=== PATIENT | female | born 1945 | race Caucasian/White ===

== ENCOUNTER 2017-11-11 15:20 | Emergency (ER) | payer MEDICARE, SELFPAY ==
[2017-11-11 15:25] VITALS: BP 182/89; PULSE 81; RESP 22; TEMP 37; O2SAT 98
--- NOTE | 2017-11-11 15:57 | W.ED.GENAD ---
Discharge Plan Disposition Patient Disposition: HOME Discharge Details Chief Complaint: GenMedical Clinical Impression: Nausea Primary Care Provider: Amber Kraus ED Provider: Joshua Urban Home Meds and New Rx's Prescriptions: Continue carbidopa-levodopa 1 EACH tablet 1 tab PO BID RF: 0 fluoxetine [Prozac] 10 MG capsule 20 mg PO DAILY RF: 0 morphine 15 MG tablet 15 mg PO Q4H PRN PRNRF: 0 omeprazole 40 MG capsule,delayed release(DR/EC) 40 mg PO BID Qty: 14 RF: 0 metoprolol succinate [Toprol XL] 50 MG tablet extended release 24 hr 50 mg PO DAILY RF: 0 ondansetron HCl 4 MG tablet 4 mg PO Q4H PRN PRNRF: 0 Discharge Instructions Additional Instructions: Please contact your primary care physician to arrange follow-up. Return to the ER for any worsening or new concerning symptoms. Referrals: Amber Kraus [Primary Care Provider] - Medical Decision Making MDM Narrative Medical decision making narrative: 16:05 --71-year-old female with history of hypertension, peptic ulcer disease, chronic pain, history of seizures, here with generalized discomfort, nausea and vomiting, tremors. Plan at this time is to give IV fluid bolus and Ativan for anxiety and nausea. Will check labs to assess for electrolyte abnormalities. ECG was sent by screening protocol. ECG reviewed and interpreted by me: Sinus rhythm 80 bpm, right atrial enlargement noted, subtle ST depression noted inferior lateral in leads II, 3, aVF, V3 to V6, this is unchanged from prior EKG 09/15/2017. 17:11 --patient reassessed: She is doing much better. When distracted patient appears quite comfortable and highly functional. Abdominal exam is benign. Patient still states that she has some mild nausea. I will give Phenergan suppository. Patient is stable for discharge with outpatient follow-up. I encouraged her to call her doctor tomorrow to arrange follow-up. She understands she should return to the emergency department if any worsening or new concerning symptoms. Medical Records Medical records reviewed: Yes I reviewed the patient's medical records. I reviewed past medical record and patient had similar presentation 09/16/[address] and was admitted for intractable vomiting. CT a/p 09/16/17: CONCLUSION: 1. Gastric wall edema/thickening, consider gastritis or peptic ulcer disease. 2. Borderline or mildly dilatated biliary ducts, please correlate clinically and with serum values. 3. Apparent colonic wall thickening raising the possibility of colitis. Patient improved in the hospital and was discharged to follow-up with her primary care physician. Lab Data Lab results reviewed: Yes I reviewed the patient's lab results. Laboratory Tests 11/11/17 11/11/17 16:00 16:00 WBC 5.45 RBC 4.87 Hgb 12.2 Hct 36.8 MCV 75.6 L MCH 25.1 L MCHC 33.2 RDW 15.2 H Plt Count 329 MPV 9.8 Immature Gran % 0.2 Neutrophils % 81.5 Lymphocytes % 15.0 Monocytes % 2.9 Eosinophils % 0.0 Basophils % 0.4 Absolute Neutrophils 4.44 Absolute Lymphocytes 0.82 L Absolute Monocytes 0.16 Absolute Eosinophils 0.00 Absolute Basophils 0.02 Sodium 139 Potassium 3.9 Chloride 105 Carbon Dioxide 22.7 Anion Gap 11.3 H BUN 22 H Creatinine 1.01 Estimated GFR/1.73 m2 53.73 Glucose 165 H Calcium 8.7 Magnesium 1.6 L Total Bilirubin 0.3 AST 21 ALT 7 L Alkaline Phosphatase 61 Troponin I < 0.02 Total Protein 7.5 Albumin 3.6 HPI - General Adult General Date/Time Provider Initiated Documentation: 11/11/17 15:20. Limitations to Documentation: no limitations. Information obtained by: patient. HPI Narrative: 71-year-old female with a history of hypertension, peptic ulcer disease, chronic pain, seizure disorder, hepatitis C, presents with chief complaint of generally not feeling well. Patient notes that 2 days ago she had nausea, vomiting and diarrhea that lasted approximately 24 hours. She thought she had gastroenteritis. She did not have any symptoms yesterday and in fact felt quite well. Since this morning, however, she has been feeling ill again with nausea, vomiting and feels as though she is having frequent seizures. When asked further characterize her seizures, she notes that she has had shaking of her legs. No loss of consciousness. Patient states that she used some Zofran at home today and that this did not help. He has pain all over her body. She also states that she wants to be admitted to the hospital and does not want to go home. Related Data Home Medications Medication Instructions Recorded Confirmed carbidopa-levodopa 1 tab PO BID 07/13/15 11/11/17 fluoxetine [Prozac] 20 mg PO DAILY 07/13/15 11/11/17 morphine 15 mg PO Q4H PRN PRN 07/13/15 11/11/17 metoprolol succinate [Toprol XL] 50 mg PO DAILY 09/15/17 11/11/17 ondansetron HCl 4 mg PO Q4H PRN PRN 09/15/17 11/11/17 Previous Rx's Medication Instructions Recorded omeprazole 40 mg PO BID #14 capcr 09/18/17 Allergies Allergy/AdvReac Type Severity Reaction Status Date / Time Sulfa (Sulfonamide Allergy Severe Anaphylaxsi Unverified 09/16/17 08:33 Antibiotics) s meperidine HCl [From Demerol] Allergy Intermediate Contraindicated, Unverified 09/16/17 08:33 seizures Penicillins Allergy Intermediate Skin Rash, Unverified 09/16/17 08:33 stomach cramping, diarrhea phenytoin sodium Allergy Intermediate Contraindicated, Unverified 09/16/17 08:33 [From Dilantin] seizures phenytoin sodium extended Allergy Intermediate Contraindicated, Unverified 09/16/17 08:33 [From Dilantin] seizures midazolam HCl [From Versed] AdvReac Intermediate Psychosis Unverified 09/16/17 08:33 General Stated Complaint: GenMedical CRISTO: 3 Review of Systems Review of Systems All systems reviewed & are unremarkable except as noted in HPI and below Constitutional Reports body ache(s) Cardiovascular Reports chest pain, Denies syncope and Denies dyspnea Respiratory Denies dyspnea Gastrointestinal Reports abdominal pain (diffuse), Reports cramping, Reports diarrhea, Reports nausea and Reports vomiting Musculoskeletal Reports myalgias Neurologic Denies syncope PFSH Medical History Abdominal pain Chronic, continuous use of opioids Hx of drug withdrawal syndrome Social History Smoking/Tobacco Use Status: Former Tobacco Use Exam Const General: well developed and anxious Limitations: mental status not altered HENMT Mouth: moist mucous membranes Eyes Conjunctivae: conjunctivae normal Sclera: sclerae normal Neck Neck: normal visual inspection Resp Effort & Inspection: normal respiratory effort and no respiratory distress Auscultation: no rales, no rhonchi and no wheezes Cardio Jugular venous pressure: no JVD Rate: regular rate Rhythm: regular rhythm Heart Sounds: no gallops, no murmurs and no rubs GI Inspection: non-distended Palpation: soft, no hepatosplenomegaly, not rigid and tender (diffuse) Percussion: normal to percussion and no fluid wave Auscultation: normal bowel sounds Skin General skin exam: no rashes or lesions noted and other (warm) Neuro General: alert, awake and moves all extremities Extrem General: no edema Psych Appearance: grossly normal Mental Status: mental status grossly normal Speech and Movement: speech and movement normal Mood: anxious mood Course Vital Signs Temperature 37.0 C 11/11/17 15:25 Pulse 81 11/11/17 15:25 Respiratory Rate 22 11/11/17 15:25 Blood Pressure 182/89 H 11/11/17 15:25 Pulse Oximetry 98 11/11/17 15:25 Temperature 37.0 C 11/11/17 15:25 Pulse 81 11/11/17 15:25 Respiratory Rate 22 11/11/17 15:25 Blood Pressure 182/89 H 11/11/17 15:25 Pulse Oximetry 98 11/11/17 15:25
[2017-11-11] MEDS: LORazepam 2 MG/ML VIAL 1 MG IVP (16:12)
[2017-11-11] MEDS: Lactated Ringers 1,000 ML 1000 ML IV (16:12)
[2017-11-11 16:18] LABS: Abs Immature Grans 0.01 k/cumm (0.0-0.09); Absolute Basophil Count 0.02 k/cumm (0.0-0.2); Absolute Lymphocyte Count 0.82 k/cumm (1.2-3.4); Absolute Monocyte Count 0.16 k/cumm (0.11-0.7); Absolute Neutrophil Count 4.44 k/cumm (1.2-6.7); Basophils % 0.4; HCT 36.8 % (36.0-46.0); HGB 12.2 g/dL (12.0-15.5); Immature Grans % 0.2; Mean Corp. HGB Concentration 33.2 g/dL (32.0-36.0); Mean Corpuscular Hemoglobin 25.1 pg (27.0-33.0); Mean Corpuscular Volume 75.6 fL (80-95); Mean Platelet Volume 9.8 fL (8.0-11.0); Monocytes % 2.9; Neutrophils % 81.5; Platelet Count 329 x1000/uL (130-400); RBC 4.87 m/cumm (4.00-5.20); RBC Distribution Width 15.2 % (11.7-14.6); White Blood Cell Count 5.45 k/cumm (4.4-10.8)
[2017-11-11 16:41] LABS: ALT 7 U/L (12-78); AST 21 U/L (15-37); Albumin 3.6 g/dL (3.4-5.0); Alkaline Phosphatase 61 U/L (46-116); Anion Gap 11.3 mmol/L (3-11); BUN 22 mg/dL (7-18); Bilirubin, Total 0.3 mg/dL (0.2-1.0); CO2 22.7 mmol/L (21.0-32.0); CREATININE 1.01 mg/dL (0.55-1.02); Calcium 8.7 mg/dL (8.5-10.1); Chloride 105 mmol/L (98-107); Estimated GFR 53.73 (mL/min/1.73m2); Glucose 165 mg/dL (70-100); Potassium 3.9 mmol/L (3.5-5.1); Sodium 139 mmol/L (136-145); Total Protein 7.5 g/dL (6.4-8.2)
[2017-11-11 16:46] LABS: Troponin I < 0.02 ng/mL (0.00-0.06)
[2017-11-11 16:51] LABS: Magnesium 1.6 mg/dL (1.8-2.4)
[2017-11-11] MEDS: Promethazine 25 MG SUPP PR (17:21)
[2017-11-11] MEDS: Ketorolac 15 MG/ML VIAL IVP (17:51)
[2017-11-11] MEDS: Magnesium Oxide 400 MG TAB 800 MG PO (17:52)
== END 2017-11-11 19:10 | disposition home or self-care (01) ==
PROVIDERS: Emergency Provider Student in an Organized Health Care Education/Training Program; PCP Family Medicine
DX: R11.2 Nausea with vomiting, unspecified (principal); R25.1 Tremor, unspecified; I10 Essential (primary) hypertension
CPT/HCPCS: 36415; 80053; 93005; 96361; 96374; 96375; 99284; 83735; 84484; 85025; 93010; J1885; J2060

== ENCOUNTER 2018-08-14 17:11 | Outpatient (REF) | payer MEDICARE, SELFPAY ==
[2018-08-14 21:25] LABS: HCT 34.9 % (36.0-46.0); HGB 10.8 g/dL (12.0-15.5); Mean Corp. HGB Concentration 30.9 g/dL (32.0-36.0); Mean Corpuscular Hemoglobin 23.6 pg (27.0-33.0); Mean Corpuscular Volume 76.2 fL (80-95); Mean Platelet Volume 10.1 fL (8.0-11.0); Platelet Count 361 x1000/uL (130-400); RBC 4.58 m/cumm (4.00-5.20); RBC Distribution Width 17.4 % (11.7-14.6); White Blood Cell Count 4.81 k/cumm (4.4-10.8)
[2018-08-14 21:59] LABS: ALT 12 U/L (12-78); AST 18 U/L (15-37); Albumin 3.5 g/dL (3.4-5.0); Alkaline Phosphatase 62 U/L (46-116); BUN 18 mg/dL (7-18); Bilirubin, Total 0.2 mg/dL (0.2-1.0); CREATININE 0.84 mg/dL (0.55-1.02); Calcium 8.6 mg/dL (8.5-10.1); Chloride 105 mmol/L (98-107); Glucose 97 mg/dL (70-100); Potassium 5.1 mmol/L (3.5-5.1); Sodium 140 mmol/L (136-145)
== END 2018-08-14 17:31 ==
LOC: NCHCN 17:11
PROVIDERS: PCP Family Medicine; Visit Provider Internal Medicine
DX: R53.83 Other fatigue (principal); K92.2 Gastrointestinal hemorrhage, unspecified
CPT/HCPCS: 80053; 85027; 84443

== ENCOUNTER 2018-08-20 14:11 | Outpatient (REF) | payer MEDICARE, SELFPAY | END 2018-08-20 14:31 | LOC: NCHCN 14:11 | PROVIDERS: PCP Family Medicine; Visit Provider Internal Medicine | DX: K92.2 Gastrointestinal hemorrhage, unspecified (principal); R53.83 Other fatigue | CPT/HCPCS: 87338; 82272 ==

== ENCOUNTER 2018-08-26 16:14 | Outpatient (REF) | payer MEDICARE, SELFPAY ==
[2018-08-27 14:18] LABS: Helicobacter pylori Ag, Feces Positive (NEGAT)
== END 2018-08-26 16:34 ==
LOC: NCHCN 16:14
PROVIDERS: PCP Family Medicine; Visit Provider Internal Medicine
DX: R53.83 Other fatigue (principal); K92.2 Gastrointestinal hemorrhage, unspecified
CPT/HCPCS: 87338

== ENCOUNTER 2019-05-20 14:43 | Emergency (ER) | payer MEDICARE, SELFPAY ==
[2019-05-20 14:46] VITALS: BP 191/81; PULSE 106; RESP 20; TEMP 36.8; O2SAT 99
[2019-05-20] MEDS: Normal Saline Flush 10 ML SYR IVP (14:50)
--- NOTE | 2019-05-20 15:00 | DI.CT_ITS ---
EXAM: CT ABDOMEN PELVIS W CLINICAL HISTORY: Constipation, abdominal pain TECHNIQUE: Imaging Protocol: Axial computed tomography images with coronal and sagittal reformatted images were created and reviewed CONTRAST MATERIAL: Intravenous: Omnipaque 350 Contrast volume:56 mL Oral: No COMPARISON: ABD PELVIS WITH CONTRAST from 09/15/2017 FINDINGS: ABDOMEN: Lung Bases: Normal where visualized. Liver: Normal density. No measurable mass. Portal, Superior Mesenteric, and Splenic Veins: Unremarkable. Gallbladder and Biliary Tract: The gallbladder is distended measuring 4.2 cm in diameter. No choleli thiasis is present. There is extra and intrahepatic biliary ductal dilatation. The common duct lauri ures 1.1 cm in diameter. Pancreas: Normal density, no abnormal calcifications or inflammatory process. There is stable dilatat ion of the pancreatic duct. Spleen: Normal. Adrenals: No masses seen. Kidneys: Normal size, contour and axis. There is a 3 mm nonobstructing stone in the lower pole of the left kidney. No masses seen. There is a question of a duplex left renal collecting system. Abdominal Aorta: Abdominal portion non-dilated. Atherosclerosis. Bowel: No obstruction or bowel wall thickening. No evidence of acute appendicitis. Colonic diverticu losis. No evidence of acute diverticulitis. Peritoneal Cavity: No ascites, collection or mesenteric inflammatory response. Lymph Nodes: Within normal limits. Bones: Left convex scoliosis. There are moderately severe degenerative changes in the lumbar spine. Soft Tissues: There is a small fat containing umbilical hernia. PELVIS: Bladder: Symmetric distention, no gross wall thickening. Reproductive Organs: Unremarkable as visualized. Lymph Nodes: Within normal limits. Bones: Degenerative changes are present. IMPRESSION: 1. Gallbladder distension. Slight progression of the intra and extrahepatic biliary ductal dilatatio n. MRCP should be considered for further evaluation. RADIATION DOSE DELIVERED: DATA REPOSITORY: All CT scans at this facility are submitted to the National Radiology Data Registry (NRDR) Dose Index Registry (DIR) with the [employer] ([employer]). RADIATION OPTIMIZATION: All CT scans at this facility use at least one of these dose optimization te chniques: automated exposure control; mA and/or kV adjustment per patient size (includes targeted exa ms where dose is matched to clinical indication); or iterative reconstruction.
--- NOTE | 2019-05-20 15:03 | ED.GENADUL_ITS ---
Discharge Plan Disposition Patient Disposition: HOME Condition: Stable Discharge Details Chief Complaint: Abd Prob Clinical Impression: Constipation, Abdominal pain Primary Care Provider: Amber Kraus ED Provider: Rae Kunz Home Meds and New Rx's Prescriptions: New polyethylene glycol 3350 [Miralax] 17 gram/dose powder 17 gm PO DAILY PRN (Reason: constipation) Qty: 119 RF: 0 Continued carbidopa-levodopa 1 EACH tablet 1 tab PO BID RF: 0 fluoxetine [Prozac] 10 MG capsule 20 mg PO DAILY RF: 0 morphine 15 MG tablet 15 mg PO Q4H PRN PRNRF: 0 omeprazole 40 MG capsule,delayed release(DR/EC) 40 mg PO BID Qty: 14 RF: 0 metoprolol succinate [Toprol XL] 50 MG tablet extended release 24 hr 50 mg PO DAILY RF: 0 ondansetron HCl 4 MG tablet 4 mg PO Q4H PRN PRNRF: 0 Discharge Instructions Instructions: Constipation (ED), Abdominal Pain (ED) Additional Instructions: Follow up with primary care provider in 3-5 days. Return to ED sooner if any worsening or concerns. Increase oral fluids. Take medications as directed. Your gallbladder is distended and you may need a follow up test called a MRCP. Please discuss this with your PCP. Referrals: Amber Kraus [Primary Care Provider] - Discharge Data Discharge Date/Time-TO BE ENTERED AT DEPARTURE: 05/20/19 17:35 Medical Decision Making 73-year-old female presents with constipation and abdominal pain. She states that her last bowel movement was 5 or 6 days ago and that she is passing clear mucus from her rectum. She denies fever chills denies hematochezia or vomiting. She has a history of G-tube which is removed, peptic ulcer disease, colitis, hypertension. Labs ordered including CBC, CMP, urinalysis, CT abdomen pelvis with IV contrast ordered. 1615: At this time CT result is resulted, no obstruction. TECHNIQUE: Imaging protocol: Computed tomography of the abdomen and pelvis with intravenous contrast. COMPARISON: CT ABD PELVIS WITH CONTRAST 09/15/2017 12:51 PM FINDINGS: Liver: No mass. Gallbladder and bile ducts: Gallbladder distention, no gallstones. Biliary ductal dilatation, the common duct is estimated at 9 mm. Pancreas: No acute findings. Stable minimal ductal dilation. Spleen: Normal. No splenomegaly. Adrenals: Normal. No mass. Kidneys and ureters: Small left lower pole parenchymal calcification. No hydronephrosis of either kidney. Stomach and bowel: No acute findings. No obstruction. No mucosal thickening. Appendix: No evidence of appendicitis. Intraperitoneal space: Unremarkable. No free air. No significant fluid collection. Vasculature: No abdominal aortic aneurysm. Lymph nodes: No significant adenopathy. Bladder: Unremarkable as visualized. Reproductive: Unremarkable as visualized. Bones/joints: No acute findings. Soft tissues: Unremarkable. IMPRESSION: Gallbladder distention, biliary ductal dilatation. Consider follow-up MRCP. Thank you for allowing us to participate in the care of your patient. Dictated and Authenticated by: Reggie Mcdermott MD 05/20/2019 4:15 PM Eastern Time ([place] & [place]). Differential diagnosis includes but not limited to gastritis, obstruction, constipation. Patient is to get soapsuds enema prior to discharge discussed results and plan with patient, verbalized understanding. HPI General Mode of arrival: ambulatory . Date/Time Provider Initiated Documentation: 05/20/19 14:54 . Limitations to Documentation: no limitations . Information obtained by: patient . HPI Narrative: 73-year-old female presents with constipation and abdominal pain. She states that her last bowel movement was 5 or 6 days ago and that she is passing clear mucus from her rectum. She denies fever chills denies hematochezia or vomiting. She has a history of G- tube which is removed, peptic ulcer disease, colitis, hypertension. Related Data Home Medications Medication Instructions Recorded Confirmed carbidopa-levodopa 1 tab PO BID 07/13/15 05/20/19 fluoxetine [Prozac] 20 mg PO DAILY 07/13/15 05/20/19 morphine 15 mg PO Q4H PRN PRN 07/13/15 05/20/19 metoprolol succinate [Toprol XL] 50 mg PO DAILY 09/15/17 05/20/19 ondansetron HCl 4 mg PO Q4H PRN PRN 09/15/17 05/20/19 omeprazole 40 mg PO BID #14 capcr 09/18/17 05/20/19 polyethylene glycol 3350 [Miralax] 17 gm PO DAILY PRN #119 gm 05/20/19 Previous Rx's Medication Instructions Recorded omeprazole 40 mg PO BID #14 capcr 09/18/17 polyethylene glycol 3350 [Miralax] 17 gm PO DAILY PRN #119 gm 05/20/19 Allergies Allergy/AdvReac Type Severity Reaction Status Date / Time Sulfa (Sulfonamide Allergy Severe Anaphylaxsi Unverified 05/20/19 14:50 Antibiotics) s meperidine HCl [From Demerol] Allergy Intermediate Contraindicated, Unverified 05/20/19 14:50 seizures Penicillins Allergy Intermediate Skin Rash, Unverified 05/20/19 14:50 stomach cramping, diarrhea phenytoin sodium Allergy Intermediate Contraindicated, Unverified 05/20/19 14:50 [From Dilantin] seizures phenytoin sodium extended Allergy Intermediate Contraindicated, Unverified 05/20/19 14:50 [From Dilantin] seizures midazolam HCl [From Versed] AdvReac Intermediate Psychosis Unverified 05/20/19 14:50 General Stated Complaint: Abd Prob CRISTO: 2 Review of Systems Narrative: Constitutional: Negative for weight loss, alert and oriented, well groomed, normal body habitus, appears comfortable. HEENT: Denies trauma, headaches, blurry vision, nasal discharge, sore throat, trouble swallowing. Chest: Denies chest pain, palpitations, irregular rhythm, hypertension. Respiratory: Denies Shortness of breath, cough, hemoptysis. GI: Denies nausea, vomiting, positive constipation. Reports mucus from rectum. : Denies dysuria, hematuria, flank pain, rectal bleeding. Neuro: Denies dizziness, blurry vision, weakness, syncope, headache or facial numbness. Hematologic: Denies easy bruising, intolerance to heat or cold, hair loss. [facility] Medical History Abdominal pain Chronic, continuous use of opioids Hx of drug withdrawal syndrome Social History Smoking/Tobacco Use Status: Current-Occasional Tobacco Type: cigarettes Alcohol Intake: never Drug use: Occasionally Substance use type: marijuana Do you feel safe at home: Yes Do you feel safe in your relationship?: Yes Exam Narrative Exam Narrative: Constitutional: Allert and oriented x3. Appears stated age. Normal body habitus. Head: Normocephalic, no trauma. Eyes: Pupils PERRLA, Red reflex noted, EOM's intact. Eyelids symmetrical withour lesions, discharge, or swelling. ENT: Bilateral TM's WNL, External ear normal to inspection, no mastoid TTP, swelling, or erythema, Nasal turbinates WNL, no nasal discharge. Normal dentition, Posterior pharynx WNL, no exudate. Chest: RRR, Normal S1, S2, distal pulses intact. Resp: Lungs clear to auscultation bilaterally, no wheezes, rales, or rhonchi. Abdomen: Normal to inspection, hyperactive bowel sounds all 4 quadrants. Tender to palpation left lower quadrant. Musculoskeletal: Normal gait, 5/5 strength to all four extremities. Skin: No suspicious rashes or lesions. Capillary refill less than 2 sec. Neurologic: Cranial nerves II-XII intact. Alert and oriented x 3. DTR's intact. Hematologic/Lymphatic: No ecchymosis, no lymphadenopathy. Course Vital Signs Vital signs: Vital Signs Temperature 36.8 C 05/20/19 14:46 Pulse 106 H 05/20/19 14:46 Respiratory Rate 20 05/20/19 14:46 Blood Pressure 191/81 H 05/20/19 14:46 Pulse Oximetry 99 05/20/19 14:46 Temperature 36.8 C 05/20/19 14:46 Temperature Source Temporal Artery Scan 05/20/19 14:46 Pulse 106 H 05/20/19 14:46 Respiratory Rate 20 05/20/19 14:46 Respiratory Effort Non-Labored 05/20/19 14:49 Blood Pressure 191/81 H 05/20/19 14:46 Blood Pressure Position Supine 05/20/19 14:46 Pulse Oximetry 99 05/20/19 14:46 Oxygen Delivery Method Room Air 05/20/19 14:46 Oxygen Flow Rate 0 05/20/19 14:46 Pain Level 10 05/20/19 14:46
[2019-05-20] MEDS: Normal Saline 1,000 ML 1000 ML IV (15:05)
[2019-05-20] MEDS: Ondansetron 4 MG/2 ML VIAL IVP (15:16)
[2019-05-20 15:17] LABS: Abs Immature Grans 0.02 k/cumm (0.0-0.09); Absolute Basophil Count 0.01 k/cumm (0.0-0.2); Absolute Lymphocyte Count 0.88 k/cumm (1.2-3.4); Absolute Monocyte Count 0.37 k/cumm (0.11-0.7); Absolute Neutrophil Count 9.32 k/cumm (1.2-6.7); Basophils % 0.1; HCT 40.1 % (36.0-46.0); HGB 13.4 g/dL (12.0-15.5); Immature Grans % 0.2 %; Lymphocytes % 8.3; Mean Corp. HGB Concentration 33.4 g/dL (32.0-36.0); Mean Corpuscular Hemoglobin 24.8 pg (27.0-33.0); Mean Corpuscular Volume 74.1 fL (80-95); Mean Platelet Volume 9.1 fL (8.0-11.0); Monocytes % 3.5; Neutrophils % 87.9; Platelet Count 453 x1000/uL (130-400); RBC 5.41 m/cumm (4.00-5.20)
[2019-05-20 15:42] LABS: Microcytosis 1+
[2019-05-20 15:45] LABS: ALT 15 U/L (14-59); AST 20 U/L (15-37); Albumin 4.1 g/dL (3.4-5.0); Alkaline Phosphatase 78 U/L (46-116); Anion Gap 17.6 mmol/L (3-11); BUN 19 mg/dL (7-18); Bilirubin, Total 0.4 mg/dL (0.2-1.0); CO2 19.4 mmol/L (21.0-32.0); CREATININE 1.12 mg/dL (0.55-1.02); Calcium 9.4 mg/dL (8.5-10.1); Chloride 101 mmol/L (98-107); Estimated GFR 47.43 (mL/min/1.73m2); Glucose 159 mg/dL (74-106); Lipase 68 U/L (73-393); Magnesium 1.7 mg/dL (1.8-2.4); Potassium 3.5 mmol/L (3.5-5.1); Sodium 138 mmol/L (136-145); Total Protein 8.8 g/dL (6.4-8.2)
[2019-05-20] MEDS: Omnipaque 350 MG/ML 100 ML BTL IJ (15:47)
[2019-05-20] MEDS: Normal Saline - Diluent 50 ML VIAL IV (15:48)
[2019-05-20 16:10] LABS: Bilirubin Negative (Negative); Blood Trace-intact (Negative); Clarity Clear (Clear); Glucose Negative (Negative); Ketones 15 mg/dL (Negative); Leukocyte Esterase Negative (Negative); Nitrite Negative (Negative); Specific Gravity >= 1.030 (1.005-1.025); Urobilinogen 0.2 EU/dL (Up TO 0.2); pH 6.5 (5-8)
--- NOTE | 2019-05-20 16:15 | DI.VRAD_ITS ---
PROCEDURE INFORMATION: Exam: CT Abdomen And Pelvis With Contrast Exam date and time: 05/20/2019 3:47 PM Age: 73 years old Clinical indication: Patient HX: Constipation, abdominal pain TECHNIQUE: Imaging protocol: Computed tomography of the abdomen and pelvis with intravenous contrast. COMPARISON: CT ABD PELVIS WITH CONTRAST 09/15/2017 12:51 PM FINDINGS: Liver: No mass. Gallbladder and bile ducts: Gallbladder distention, no gallstones. Biliary ductal dilatation, the common duct is estimated at 9 mm. Pancreas: No acute findings. Stable minimal ductal dilation. Spleen: Normal. No splenomegaly. Adrenals: Normal. No mass. Kidneys and ureters: Small left lower pole parenchymal calcification. No hydronephrosis of either kidney. Stomach and bowel: No acute findings. No obstruction. No mucosal thickening. Appendix: No evidence of appendicitis. Intraperitoneal space: Unremarkable. No free air. No significant fluid collection. Vasculature: No abdominal aortic aneurysm. Lymph nodes: No significant adenopathy. Bladder: Unremarkable as visualized. Reproductive: Unremarkable as visualized. Bones/joints: No acute findings. Soft tissues: Unremarkable. IMPRESSION: Gallbladder distention, biliary ductal dilatation. Consider follow-up MRCP. Dictated and Authenticated by: Reggie Mcdermott MD. Ordering:JAIRO Mcbride MD
[2019-05-20 16:17] LABS: Epithelial Cells Few HPF (Negative); Other Cells Negative (Negative); WBC 0-2 HPF (0-5)
[2019-05-20 16:18] LABS: Bacteria Few HPF (Negative); C & S Indicated? No; Casts Negative LPF (Negative); Crystals Negative HPF (Negative); Mucus Trace (Negative)
[2019-05-20 16:34] VITALS: BP 196/94; PULSE 100; RESP 17; TEMP 37.3; O2SAT 98
== END 2019-05-20 17:35 | disposition home or self-care (01) ==
PROVIDERS: Emergency Provider Registered Nurse Emergency; PCP Family Medicine
DX: R93.2 Abnormal findings on diagnostic imaging of liver and biliary tract (principal); R10.32 Left lower quadrant pain; K59.00 Constipation, unspecified; I10 Essential (primary) hypertension
CPT/HCPCS: 36415; 80053; 83690; 96361; 96374; 96375; 96376; 99285; 74177; 81003; 81015; 83735; 85025; 99284; J2405; J3490

== ENCOUNTER 2019-07-15 11:50 | Outpatient (REF) | payer MEDICARE, SELFPAY ==
[2019-07-15 19:56] LABS: Abs Immature Grans 0.01 k/cumm (0.0-0.09); Absolute Basophil Count 0.02 k/cumm (0.0-0.2); Absolute Eosinophil Count 0.14 k/cumm (0.0-0.7); Absolute Lymphocyte Count 2.12 k/cumm (1.2-3.4); Absolute Monocyte Count 0.72 k/cumm (0.11-0.7); Basophils % 0.3; Eosinophils % 2.3; HCT 36.6 % (36.0-46.0); HGB 11.7 g/dL (12.0-15.5); Immature Grans % 0.2 %; Lymphocytes % 35.3; Mean Corpuscular Hemoglobin 24.3 pg (27.0-33.0); Mean Corpuscular Volume 76.1 fL (80-95); Mean Platelet Volume 10.2 fL (8.0-11.0); Neutrophils % 49.9; Platelet Count 417 x1000/uL (130-400); RBC 4.81 m/cumm (4.00-5.20); RBC Distribution Width 16.9 % (11.7-14.6); White Blood Cell Count 6.01 k/cumm (4.4-10.8)
[2019-07-15 20:23] LABS: ALT 12 U/L (14-59); AST 16 U/L (15-37); Albumin 3.9 g/dL (3.4-5.0); Alkaline Phosphatase 62 U/L (46-116); BUN 20 mg/dL (7-18); Bilirubin, Total 0.3 mg/dL (0.2-1.0); CREATININE 1.06 mg/dL (0.55-1.02); Calcium 9.6 mg/dL (8.5-10.1); Chloride 104 mmol/L (98-107); Estimated GFR 50.54 (mL/min/1.73m2); Glucose 103 mg/dL (74-106); Potassium 3.9 mmol/L (3.5-5.1); Sodium 138 mmol/L (136-145); TSH (W/Ref FT4) 0.69 uIU/mL (0.36-3.74); Total Protein 7.5 g/dL (6.4-8.2)
[2019-07-15 21:08] LABS: ESR 14 mm/hr (0-30)
== END 2019-07-15 12:10 ==
LOC: NCHCN 11:50
PROVIDERS: PCP Family Medicine; Visit Provider Family Medicine
DX: D64.9 Anemia, unspecified (principal); R53.83 Other fatigue; R64 Cachexia
CPT/HCPCS: 80053; 85652; 84443; 85025

== ENCOUNTER 2019-12-07 00:04 | Outpatient (CLI) | payer MEDICARE, SELFPAY ==
--- NOTE | 2019-12-07 | DI.NM_ITS ---
APPROVED REPORT Exam: Pharmacologic Patient Location: Out-Patient Room/Bed: Stress Nurse: Lissy Miller RN BMI: 15.44 Baseline Rhythm: Sinus Bradycardia, 1st Degree AV Block Indications: Angina. Medical History Medical History: HTN, Fatigue, Smoking Cardiac Medications: Metoprolol succinate/ Toprol XL Allergies: Sulfa, valium, versed, demerol, dilaudid, amoxicillin. Cardiac Risk Factors: HTN, Smoking Pretest Chest Pain Characteristics: No chest pain Exercise History: Sedentary Lung Sounds: Clear to auscultation Heart Sounds: Regular Stress Test Details Test: Exercise stress converted to pharmacologic stress due to failure to obtain a diagnostic stress test. Reason for pharmacologic stress test: changed from exercise stress test due to inability to reach t arget heart rate. Nuclear Acquisition: Rest Tc-99m/Stress Tc-99m 1 day Rest Isotope: Tc-99m Sestamibi. Dose: 10 Date: 12/07/2019 Injection Time: 1035 Stress Isotope: Tc-99m Sestamibi. Dose: 31.6 Date: 12/07/2019 Injection Time: 1220 HR Resting HR Supine: 58 bpm Max Heart Rate (APMHR): 145 bpm Resting HR Standin bpm Target HR (85% APMHR): 123 bpm Max HR Achieved: 124 bpm % of APMHR: 85 Recovery HR: 90 bpm HR response to stress: Normal HR response to stress Comment: Patient was able to reach 85% target but was not able to maintain for isotope injection. BP Resting BP Supine: 168/80 mmHg Resting BP Standin/82 mmHg Max BP: 206/98 mmHg Recovery BP: 160/92 mmHg BP response to stress: Normal blood pressure response to stress. ECG Resting ECG: Sinus Bradycardia, 1st degree AV block, Comment: q waves noted in leads V1 and V2. Stress ECG: Sinus Tachycardia ST Change: no significant ST segment changes noted. Arrhythmia: None Recovery ECst degree AV block Recovery ST Change: no significant ST segment changes noted. Recovery Arrhythmia: None Clinical Reason for Termination: Fatigue, Dyspnea Stress Symptoms: Dyspnea Exercise duration: 5 min40 sec Highest Stage Reached: Stage 2: 2.5 mph at 12% grade. Exercise capacity: 7.05 METs Stress ECG Conclusion 1. The patient exercised for 6 minutes (7 METS). The patient had no symptoms suggestive of ischemia. 2. The exam was converted to pharmacologic as the patient was unable to sustain a heart rate of 85% o f maximum predicted long enough for isotope injection. 3. There was no evidence of ischemia on the EKG portion of the exam. Stress Test Summary STAGE Time (mins) Speed (mph) Grade (%) HR BP SYMPTOMS METS Supine 58 168/80 Standing 65 164/82 1 3 1.7 10 102 182/74 4.6 2 6 2.5 12 107 206/98 SOB, fatigued. 7 1 min post Lexiscan injection 92 174/102 SOB 3 min post Lexiscan injection 102 166/104 SOB resolved 6 min post Lexiscan injection 90 160/92 MPI Conclusion Ejection fraction was 75% with stress. There were no wall motion abnormalities. There was no evidence of ischemia on the imaging portion of the exam. This represents a normal SPECT stress test. Radiologist Interpretation Radiologist Interpretation by: Santos Braun MD Interpretation Date/Time: 12/08/2019 16:04:18
[2019-12-07] MEDS: Regadenoson 0.4 MG/5 ML SYR IVP (12:48)
== END 2019-12-07 00:24 ==
PROVIDERS: PCP Family Medicine; Visit Provider Family Medicine
DX: I20.9 Angina pectoris, unspecified (principal); I10 Essential (primary) hypertension; F17.210 Nicotine dependence, cigarettes, uncomplicated
CPT/HCPCS: 78452; 93016; 93018; 93017; J2785

== ENCOUNTER 2020-06-05 12:58 | Outpatient (REF) | payer MEDICARE, SELFPAY ==
[2020-06-05 21:32] LABS: Abs Immature Grans 0.02 10^3/uL (0.0-0.06); Absolute Basophil Count 0.05 10^3/uL (0.0-0.2); Absolute Lymphocyte Count 1.76 10^3/uL (1.2-3.4); Absolute Monocyte Count 0.52 10^3/uL (0.1-0.8); Absolute Neutrophil Count 2.94 10^3/uL (1.2-6.7); Basophils % 0.9; Eosinophils % 5.4; HGB 11.4 g/dL (11.2-15.7); Immature Grans % 0.4; Lymphocytes % 31.5; MCHC 31.7 % (32.0-36.0); MCV 85.3 fL (80-95); MPV 9.3 fL (8.0-11.0); Monocytes % 9.3; Neutrophils % 52.5; Nucleated RBC 0 %; Platelet Count 427 10^3/uL (130-400); RBC 4.22 10^6/uL (3.93-5.22); RDW 16.7 % (11.7-14.6); RDW-SD 52.2 fL; WBC 5.59 10^3/uL (4.4-10.8)
[2020-06-05 21:43] LABS: Iron 31 ug/dL (50-170)
== END 2020-06-05 12:59 | disposition home or self-care (01) ==
LOC: NCHCN 12:58
PROVIDERS: PCP Family Medicine; Visit Provider Family Medicine
DX: D64.9 Anemia, unspecified (principal); G25.9 Extrapyramidal and movement disorder, unspecified
CPT/HCPCS: 83540; 85025

== ENCOUNTER 2021-01-11 16:09 | Emergency (ER) | payer MEDICARE, OTHER, SELFPAY ==
[2021-01-11] VITALS (14 sets, daily range): BP systolic 162; BP diastolic 90; PULSE 61–80; RESP 10–29; TEMP 36.3–36.4; O2SAT 89–100
--- NOTE | 2021-01-11 16:15 | RT.EKG_ITS ---
APPROVED REPORT Exam: Resting ECG Reason for Exam: sob Patient Location: E HR:62 bpm ECG Measurements Heart Rate 62 AXIS VA 192 P 89 QRSd 92 QRS -5 QT 471 T 84 QTc 479 Conclusion Sinus rhythm...normal P axis, V-rate 60- 99 Anteroseptal infarct, age indeterminate...Q >35mS, T neg, V1-V2 no stemi
--- NOTE | 2021-01-11 16:30 | DI.RAD_ITS ---
Exam(s) XR PORTABLE CHEST AP EXAM: XR PORTABLE CHEST AP CLINICAL HISTORY: pui, sob TECHNIQUE: 2D digital imaging was performed. COMPARISON: CR CHEST 2 VIEWS PA,LAT from 09/16/2017 FINDINGS: LUNGS: Hyperinflated but otherwise clear. No pleural abnormality seen. HEART: Normal. MEDIASTINUM: Normal. BONES: Degenerative changes in the shoulders. Degenerative changes and scoliosis in the spine. IMPRESSION: No acute pulmonary findings. DATA REPOSITORY: RADIATION DOSE DELIVERED:
[2021-01-11 16:40] LABS: Source Nasal/Nares
[2021-01-11 16:48] LABS: Abs Immature Grans 0.01 10^3/uL (0.0-0.06); Absolute Basophil Count 0.03 10^3/uL (0.0-0.2); Absolute Eosinophil Count 0.11 10^3/uL (0.0-0.7); Absolute Lymphocyte Count 1.51 10^3/uL (1.2-3.4); Absolute Monocyte Count 0.88 10^3/uL (0.1-0.8); Basophils % 0.5; Eosinophils % 1.7; HCT 46.2 % (36.0-46.0); HGB 15.2 g/dL (11.2-15.7); Immature Grans % 0.2; Lymphocytes % 23.1; MCH 29.5 pg (27.0-33.0); MCHC 32.9 % (32.0-36.0); MCV 89.5 fL (80-95); MPV 9.5 fL (8.0-11.0); Monocytes % 13.5; Nucleated RBC 0 %; Platelet Count 332 10^3/uL (130-400); RBC 5.16 10^6/uL (3.93-5.22); RDW 15.3 % (11.7-14.6); RDW-SD 50.8 fL; WBC 6.54 10^3/uL (4.4-10.8)
[2021-01-11] MEDS: Albuterol/Ipratropium 3 ML UPD VIAL UPD (16:56)
[2021-01-11] MEDS: methylPREDNISolone SUCC 125 MG VIAL IVP (16:56)
[2021-01-11 17:01] LABS: ALT 14 U/L (14-59); AST 18 U/L (15-37); Albumin 4.1 g/dL (3.4-5.0); Alkaline Phosphatase 79 U/L (46-116); Anion Gap 10.8 mmol/L (3-11); BUN 20 mg/dL (7-18); Bilirubin, Total 0.3 mg/dL (0.2-1.0); CO2 25.2 mmol/L (21.0-32.0); CREATININE 0.8 mg/dL (0.55-1.02); Calcium 9.4 mg/dL (8.5-10.1); Chloride 104 mmol/L (98-107); Glucose 114 mg/dL (74-106); Potassium 4.4 mmol/L (3.5-5.1); Sodium 140 mmol/L (136-145); Total Protein 8.8 g/dL (6.4-8.2)
--- NOTE | 2021-01-11 17:09 | DI.VRAD_ITS ---
PROCEDURE INFORMATION: Exam: XR Chest Exam date and time: 01/11/2021 4:56 PM Age: 75 years old Clinical indication: Other: Pui, SOB TECHNIQUE: Imaging protocol: XR of the chest. Views: 1 view. COMPARISON: CR CHEST 2 VIEWS PA,LAT 09/16/2017 9:42 AM FINDINGS: Lungs: The lungs are hyperaerated and hyperlucent. No acute infiltrates noted. Pleural spaces: Unremarkable. No pleural effusion. No pneumothorax. Heart/Mediastinum: Unremarkable. No cardiomegaly. Bones/joints: There is mild dextroscoliosis of the thoracolumbar junction. Severe degenerative changes noted left shoulder. IMPRESSION: COPD. No evidence for acute abnormality in the chest. Dictated and Authenticated by: Viktoriya Evans MD. Ordering:SHAHANA Lewis MD
[2021-01-11 17:34] LABS: Troponin I < 0.05 ng/mL (<0.06)
[2021-01-11 18:04] LABS: COVID-19 PCR Negative (Negative)
--- NOTE | 2021-01-11 18:11 | ED.GENADUL_ITS ---
Discharge Plan Disposition Patient Disposition: HOME Condition: Stable Discharge Details Clinical Impression: COPD with acute exacerbation Primary Care Provider: Amber Kraus ED Provider: Joshua Urban Home Meds and New Rx's Prescriptions: New albuterol sulfate 90 mcg/actuation HFA aerosol inhaler 2 puff inhalation Q6H PRNQty: 8.5 RF: 0 prednisone 20 mg tablet 40 mg PO DAILY Qty: 8 RF: 0 azithromycin 250 mg tablet 250 mg PO DAILY 4 Days Qty: 4 RF: 0 Continued ascorbic acid-ascorbate sodium 500 mg wafer PO RF: 0 fluoxetine 40 mg capsule 40 mg PO DAILY RF: 0 ferrous gluconate 236 mg (27 mg iron) tablet 236 mg PO DAILY RF: 0 food supplemt, lactose-reduced 0.05-1.5 gram-kcal/mL liquid PO BID RF: 0 sucralfate 1 gram tablet 1 g PO BID RF: 0 morphine [MS Contin] 15 mg tablet extended release 15 mg PO Q8H PRNRF: 0 ropinirole 0.5 mg tablet 0.5 mg PO QHS RF: 0 carbidopa-levodopa 1 EACH tablet 1 tab PO BID RF: 0 metoprolol succinate [Toprol XL] 50 MG tablet extended release 24 hr 50 mg PO DAILY RF: 0 Discharge Instructions Instructions: COPD (Chronic Obstructive Pulmonary Disease) (ED) Additional Instructions: Use albuterol inhaler with spacer as follows: 2 puffs inhaled every 4-6 hours as needed for shortness of breath or wheeze. Please contact your primary care physician to arrange follow-up. Return to the ER for any worsening or new concerning symptoms.. Referrals: Amber Kraus [Primary Care Provider] - Discharge Data Discharge Date/Time-TO BE ENTERED AT DEPARTURE: 01/11/21 18:40 Medical Decision Making 75-year-old female chronic smoker, here with 2 days of shortness of breath also with intermittent nonproductive cough. Patient is not vaccinated for Covid. Patient saturating 88% on room air on arrival. Decreased breath sounds throughout. Considered Covid. Rapid Covid test negative. Considered arrhythmia and ACS. EKG was reviewed and interpreted by me: Please report, no STEMI. Troponin negative. Labs reviewed and normal renal function. No leukocytosis. Chest x-ray reviewed and interpreted by radiology: COPD. No evidence for acute abnormality in the chest. History, exam and diagnostics is consistent with acute COPD exacerbation. Patient was treated with Solu-Medrol and DuoNeb and did have significant improvement. Plan to discharge on prednisone and azithromycin and have her follow-up with primary care physician. I will provide albuterol inhaler as she has run out of prescription at home. HPI General Mode of arrival: ambulatory . Date/Time Provider Initiated Documentation: 01/11/21 16:32 . Limitations to Documentation: no limitations . Information obtained by: patient . HPI Narrative: 75-year-old female chronic smoker, here with chief complaint of shortness of breath. Patient 2 days of shortness of breath also with associated intermittent nonproductive cough. Patient is not vaccinated for Covid. She denies associated chest pain. No lower extremity edema. Related Data Home Medications Medication Instructions Recorded Confirmed carbidopa-levodopa 1 tab PO BID 07/13/15 01/11/21 metoprolol succinate [Toprol XL] 50 mg PO DAILY 09/15/17 01/11/21 ascorbic acid-ascorbate sodium PO 07/12/20 (vitamin C) 500 mg oral wafer ferrous gluconate 236 mg (27 mg 236 mg PO DAILY 07/12/20 01/11/21 iron) tablet fluoxetine 40 mg capsule 40 mg PO DAILY 07/12/20 01/11/21 food supplemt, lactose-reduced ml PO BID ml 07/12/20 0.05 gram-1.5 kcal/mL oral liquid morphine 15 mg tablet,extended 15 mg PO Q8H PRN 07/12/20 01/11/21 release ropinirole 0.5 mg tablet 0.5 mg PO QHS 07/12/20 01/11/21 sucralfate 1 gram tablet 1 g PO BID 07/12/20 01/11/21 albuterol sulfate 2 puff INHALATION Q6H PRN #8.5 g 01/11/21 azithromycin 250 mg PO DAILY 4 Days #4 tab 01/11/21 prednisone 40 mg PO DAILY #8 tab 01/11/21 Previous Rx's Medication Instructions Recorded albuterol sulfate 2 puff INHALATION Q6H PRN #8.5 g 01/11/21 azithromycin 250 mg PO DAILY 4 Days #4 tab 01/11/21 prednisone 40 mg PO DAILY #8 tab 01/11/21 Allergies Allergy/AdvReac Type Severity Reaction Status Date / Time Sulfa (Sulfonamide Allergy Severe Anaphylaxsi Unverified 01/11/21 16:24 Antibiotics) s meperidine HCl [From Demerol] Allergy Intermediate Contraindicated, Unverified 01/11/21 16:24 seizures phenytoin sodium Allergy Intermediate Contraindicated, Unverified 01/11/21 16:24 [From Dilantin] seizures phenytoin sodium extended Allergy Intermediate Contraindicated, Unverified 01/11/21 16:24 [From Dilantin] seizures amoxicillin Allergy Verified 01/11/21 16:24 diazepam [From Valium] Allergy Verified 01/11/21 16:24 hydromorphone [From Dilaudid] Allergy Verified 01/11/21 16:24 midazolam HCl [From Versed] AdvReac Intermediate Psychosis Unverified 01/11/21 16:24 General Stated Complaint: SOB CRISTO: 3 Review of Systems All systems reviewed & are unremarkable except as noted in HPI and below Constitutional Constitutional: Denies fever(s) Respiratory Respiratory: Reports as per HPI PFSH Active Problem List (Updated 01/11/21 @ 18:15 by Joshua Urban MD) COPD with acute exacerbation (Acute) Narcotic withdrawal (Acute) Nausea (Acute) Hypertension (Acute) Seizures (Acute) Chronic pain (Acute) Anemia (Acute) Medical History (Updated 01/11/21 @ 18:15 by Joshua Urban MD) Abdominal pain Cachexia Chest pain Chronic, continuous use of opioids Fatigue GI bleed Helicobacter pylori gastritis Hx of drug withdrawal syndrome Late effect of pelvic fracture Loss of vision Movement disorder PTSD (post-traumatic stress disorder) Temporal lobe epilepsy Vitamin D deficiency Social History (Updated 07/12/20 @ 09:59 by Amber Faith) Smoking/Tobacco Use Status: Current every day Tobacco Type: cigarettes Smoking risk assessment performed?: Yes Alcohol Intake: never Drug use: Daily Substance use type: marijuana Do you feel safe at home: Yes Do you feel safe in your relationship?: Yes Exam Const General: cooperative and no acute distress HENMT Mouth: moist mucous membranes Eyes Conjunctivae: normal conjunctivae Sclera: normal sclerae Neck Neck: trachea midline and supple Resp Auscultation: diminished lung sounds bilaterally in the lower lung bell, no rales and no rhonchi Cardio Jugular venous pressure: no JVD Rate: regular rate and not tachycardic Rhythm: regular rhythm GI Palpation: soft, not firm, no guarding, no masses, not rigid and nontender Skin General skin exam: no rashes or lesions noted Neuro General: patient alert, patient awake, patient oriented x3 and tone normal Extrem General: no edema Psych Appearance: grossly normal Mental Status: mental status grossly normal Speech and Movement: speech and movement normal Course Vital Signs Vital signs: Vital Signs Temperature 36.4 C L 01/11/21 16:10 Pulse 72 01/11/21 16:10 Respiratory Rate 29 H 01/11/21 16:10 Blood Pressure 162/90 H 01/11/21 16:10 Pulse Oximetry 98 01/11/21 16:10 Temperature 36.4 C L 01/11/21 16:10 Temperature Source Skin 01/11/21 16:10 Pulse 72 01/11/21 16:10 Pulse 67 01/11/21 17:40 Respiratory Rate 18 01/11/21 17:40 Respiratory Effort 01/11/21 16:25 Respiratory Depth Normal 01/11/21 16:25 Blood Pressure 162/90 H 01/11/21 16:10 Blood Pressure Position Supine 01/11/21 16:10 Pulse Oximetry 93 01/11/21 17:40 Oxygen Delivery Method Room Air 01/11/21 17:35 Oxygen Flow Rate 0 01/11/21 17:35 Pain Level 0 01/11/21 16:10 Lab/Test Results Lab/Test Results: Laboratory Tests Range/Units 01/11/21 01/11/21 01/11/21 16:30 16:33 16:33 WBC (4.4-10.8) 10^3/uL 6.54 RBC (3.93-5.22) 10^6/uL 5.16 Hgb (11.2-15.7) g/dL 15.2 Hct (36.0-46.0) % 46.2 H MCV (80-95) fL 89.5 MCH (27.0-33.0) pg 29.5 MCHC (32.0-36.0) % 32.9 RDW (11.7-14.6) % 15.3 H Plt Count (130-400) 10^3/uL 332 MPV (8.0-11.0) fL 9.5 Immature Gran % 0.2 Neutrophils % 61.0 Lymphocytes % 23.1 Monocytes % 13.5 Eosinophils % 1.7 Basophils % 0.5 Nucleated RBC % % 0 Absolute Neutrophils (1.2-6.7) 10^3/uL 4.00 Absolute Lymphocytes (1.2-3.4) 10^3/uL 1.51 Absolute Monocytes (0.1-0.8) 10^3/uL 0.88 H Absolute Eosinophils (0.0-0.7) 10^3/uL 0.11 Absolute Basophils (0.0-0.2) 10^3/uL 0.03 Sodium (136-145) mmol/L 140 Potassium (3.5-5.1) mmol/L 4.4 Chloride (98-107) mmol/L 104 Carbon Dioxide (21.0-32.0) mmol/L 25.2 Anion Gap (3-11) mmol/L 10.8 BUN (7-18) mg/dL 20 H Creatinine (0.55-1.02) mg/dL 0.8 Estimated GFR/1.73 m2 (mL/min/1.73m2) >= 60.00 Glucose (74-106) mg/dL 114 H Calcium (8.5-10.1) mg/dL 9.4 Total Bilirubin (0.2-1.0) mg/dL 0.3 AST (15-37) U/L 18 ALT (14-59) U/L 14 Alkaline Phosphatase (46-116) U/L 79 Troponin I (<0.06) ng/mL < 0.05 Total Protein (6.4-8.2) g/dL 8.8 H Albumin (3.4-5.0) g/dL 4.1 COVID-19 Source Nasal/Nares SARS-CoV-2 (PCR) (Negative) Negative
[2021-01-11] MEDS: Azithromycin 250 MG TAB 500 MG PO (18:28)
[2021-01-11] MEDS: Inhaler, Assist Device 1 EACH MC (18:29)
[2021-01-11] MEDS: Albuterol HFA 8 GM 60 PUFF INH IH (18:29)
== END 2021-01-11 18:40 | disposition home or self-care (01) ==
PROVIDERS: Emergency Provider Student in an Organized Health Care Education/Training Program; PCP Family Medicine
DX: J44.1 Chronic obstructive pulmonary disease with (acute) exacerbation (principal); R09.02 Hypoxemia; R06.02 Shortness of breath; F17.210 Nicotine dependence, cigarettes, uncomplicated; Z20.822 Contact with and (suspected) exposure to COVID-19; Z03.818 Encounter for observation for suspected exposure to other biological agents ruled out
CPT/HCPCS: 36415; 80053; 87635; 93005; 94640; 96374; 99285; 71045; 84484; 85025; 93010; J2930; J7620

== ENCOUNTER 2021-01-16 07:43 | Inpatient (IN) | payer MEDICARE, SELFPAY ==
[2021-01-16] VITALS (40 sets, daily range): BP systolic 126–162; BP diastolic 71–104; PULSE 72–101; RESP 4–33; TEMP 35.4–36.4; O2SAT 2–100
--- NOTE | 2021-01-16 08:13 | W.ED.GENAD ---
Discharge Plan Disposition Patient Disposition: [facility] INPATIENT Condition: Stable Discharge Details Clinical Impression: Multifocal pneumonia, Acute exacerbation of chronic obstructive pulmonary disease, Current smoker Admit Date/Time: 01/16/21 10:01 Admit Provider: Westley Gagnon Attending Provider: Westley Gagnon Primary Care Provider: Amber Kraus ED Provider: Aletha Weaver Discharge Data Discharge Date/Time-TO BE ENTERED AT DEPARTURE: 01/16/21 13:30 Medical Decision Making 0830 -- 75yo female with a history of COPD, chronic tobacco smoker, hypertension presents for cough and shortness of breath for the past week seen here 5 days ago and diagnosed with pneumonia currently on Zithromax and prednisone presents for worsening shortness of breath. Patient states she will not go home today and she needs to be admitted. She has been using her neighbors oxygen tank and has been using nasal cannula 4 L. She is speaking in full sentences and appears nontoxic. Her oxygen saturation is 99% on 6 L, decreased to 2 L and 95%. She is scattered wheezing throughout. She is unvaccinated for Covid and states she will accept the vaccine because it murders babies . Differential diagnosis includes acute on chronic COPD exacerbation, worsening pneumonia, coronavirus. Will place an IV, bolus IV fluids, DuoNeb, IV Solu-Medrol, screening labs, CT chest. 0945 -- Imaging reviewed and notes bilateral multifocal pneumonia. No PE. As patient's symptoms are worsening and she has failed outpatient treatment, will admit for IV antibiotics, nebs and IV steroids. Case discussed with hospitalist who accepts patient for admission. Her labs were not drawn on her initial arrival in error. Labs drawn by nursing now and noted a white blood cell count of 16. Troponin 0.32. She denies any chest pain suspect her symptoms are demand ischemia due to her pneumonia. Will obtain a repeat troponin and EKG. Hospitalist service notified and will hold in the ED pending repeat troponin result. 1215 --repeat troponin with minimal change at 0.39. Repeat EKG unchanged. Suspect this is demand ischemia in setting of pneumonia. Covid negative. Pt reassessed and she remains chest pain free. States her breathing is improved and she is requesting her regular pain medicine for her back pain. Case discussed with hospitalist who accepts patient for admission Medical Records Medical records reviewed: Yes I reviewed the patient's medical records. Imaging Data Radiologic Study: Radiologist's impression: CT CHEST PE CTA CLINICAL HISTORY: shortness of breath, hypoxia, recent pneumonia. TECHNIQUE: Imaging Protocol: Axial CT angiography was performed with multi-slice acquisition and multi-planar and/or 3D reconstructions. CONTRAST MATERIAL: Intravenous: Omnipaque 350 Contrast volume:structured data in ml COMPARISON: CT CT ABDOMEN PELVIS W from 05/20/2019 FINDINGS: CT angiography of the chest was performed with intravenous infusion of 60 cc of Omnipaque 350. There is marked breathing artifact which limits this examination. There are apparent senile pulmonary changes and probable changes of COPD. There are multifocal areas of ground-glass opacities in the upper lobes bilaterally suggesting acute pneumonitis. No pleural effusion. Tracheobronchial tree appears intact. No evidence of pulmonary embolic disease, although peripheral pulmonary arteries are poorly visualized due to motion. Thoracic aorta is of normal diameter, no thoracic aortic aneurysm or dissection, major branch vessels appear intact. No mediastinal or hilar adenopathy. Images obtained through the upper abdomen show unremarkable appearance of the visualized portions of the liver, spleen, pancreas, adrenals, and kidneys. IMPRESSION: Bilateral multifocal ground-glass opacities as described above, consistent with acute pneumonitis.. No evidence of pulmonary embolic disease. Lab Data Lab results reviewed: Yes I reviewed the patient's lab results. Labs: 01/16/21 12:57 Nasopharynx Influenza Types A,B Antigen - Pending 01/16/21 11:03 Blood Blood Culture - Pending 01/16/21 10:55 Blood Blood Culture - Pending Laboratory Tests Range/Units 01/16/21 01/16/21 01/16/21 09:53 10:05 10:05 WBC (4.4-10.8) 10^3/uL 16.28 H RBC (3.93-5.22) 10^6/uL 5.03 Hgb (11.2-15.7) g/dL 14.8 Hct (36.0-46.0) % 44.5 MCV (80-95) fL 88.5 MCH (27.0-33.0) pg 29.4 MCHC (32.0-36.0) % 33.3 RDW (11.7-14.6) % 15.2 H Plt Count (130-400) 10^3/uL 373 MPV (8.0-11.0) fL 9.1 Immature Gran % 0.3 Neutrophils % 85.0 Lymphocytes % 8.9 Monocytes % 5.5 Eosinophils % 0.1 Basophils % 0.2 Nucleated RBC % % 0 Absolute Neutrophils (1.2-6.7) 10^3/uL 13.84 H Absolute Lymphocytes (1.2-3.4) 10^3/uL 1.45 Absolute Monocytes (0.1-0.8) 10^3/uL 0.90 H Absolute Eosinophils (0.0-0.7) 10^3/uL 0.02 Absolute Basophils (0.0-0.2) 10^3/uL 0.03 VBG Lactate (0.6-1.4) mmol/L Sodium (136-145) mmol/L 133 L Potassium (3.5-5.1) mmol/L 4.4 Chloride (98-107) mmol/L 100 Carbon Dioxide (21.0-32.0) mmol/L 25.6 Anion Gap (3-11) mmol/L 7.4 BUN (7-18) mg/dL 26 H Creatinine (0.55-1.02) mg/dL 0.6 Estimated GFR/1.73 m2 (mL/min/1.73m2) >= 60.00 Glucose (74-106) mg/dL 120 H Calcium (8.5-10.1) mg/dL 9.2 Magnesium (1.8-2.4) mg/dL 2.2 Total Bilirubin (0.2-1.0) mg/dL 0.4 AST (15-37) U/L 27 ALT (14-59) U/L 10 L Alkaline Phosphatase (46-116) U/L 66 Troponin I (<0.06) ng/mL 0.32 H* Total Protein (6.4-8.2) g/dL 8.1 Albumin (3.4-5.0) g/dL 3.6 Procalcitonin ng/mL Specimen Type COVID-19 Source Nasal/Nares SARS-CoV-2 (PCR) (Negative) Negative Influenza Type A RNA Influenza Type B RNA RSV RNA Qual (PCR) Range/Units 01/16/21 01/16/21 01/16/21 10:05 11:50 Unknown WBC (4.4-10.8) 10^3/uL RBC (3.93-5.22) 10^6/uL Hgb (11.2-15.7) g/dL Hct (36.0-46.0) % MCV (80-95) fL MCH (27.0-33.0) pg MCHC (32.0-36.0) % RDW (11.7-14.6) % Plt Count (130-400) 10^3/uL MPV (8.0-11.0) fL Immature Gran % Neutrophils % Lymphocytes % Monocytes % Eosinophils % Basophils % Nucleated RBC % % Absolute Neutrophils (1.2-6.7) 10^3/uL Absolute Lymphocytes (1.2-3.4) 10^3/uL Absolute Monocytes (0.1-0.8) 10^3/uL Absolute Eosinophils (0.0-0.7) 10^3/uL Absolute Basophils (0.0-0.2) 10^3/uL VBG Lactate (0.6-1.4) mmol/L 1.6 H Sodium (136-145) mmol/L Potassium (3.5-5.1) mmol/L Chloride (98-107) mmol/L Carbon Dioxide (21.0-32.0) mmol/L Anion Gap (3-11) mmol/L BUN (7-18) mg/dL Creatinine (0.55-1.02) mg/dL Estimated GFR/1.73 m2 (mL/min/1.73m2) Glucose (74-106) mg/dL Calcium (8.5-10.1) mg/dL Magnesium (1.8-2.4) mg/dL Total Bilirubin (0.2-1.0) mg/dL AST (15-37) U/L ALT (14-59) U/L Alkaline Phosphatase (46-116) U/L Troponin I (<0.06) ng/mL 0.39 H* Total Protein (6.4-8.2) g/dL Albumin (3.4-5.0) g/dL Procalcitonin ng/mL < 0.1 Specimen Type Cancelled COVID-19 Source SARS-CoV-2 (PCR) (Negative) Influenza Type A RNA Cancelled Influenza Type B RNA Cancelled RSV RNA Qual (PCR) Cancelled ECG Data Attestation: I personally reviewed and interpreted this ECG (s) as follows: Interpretation: #1 -- rate of 80, sinus, anterior/inferior Q waves, No STEMI. PT 192, QRS 92, QTc 479. #2 -- rate of 75, sinus, anterior/inferior Q waves, No STEMI. PT 166, QRS 83, QTc 478. HPI General Mode of arrival: ambulatory. Date/Time Provider Initiated Documentation: 01/16/21 07:57. Limitations to Documentation: no limitations. Information obtained by: patient. HPI Narrative: Patient is a 75-year-old female with a history of COPD, chronic tobacco marijuana smoker presents for worsening shortness of breath and cough. She states the cough is junky but denies any sputum production. Patient was seen here 5 days ago for cough and shortness of breath for the past week and diagnosed with pneumonia and sent home with albuterol, prednisone and Zithromax. She initially did not fill the prescriptions as she did not know they were sent electronically to the pharmacy. She filled them 2 days later but denies any significant relief. She has been using her neighbors oxygen tank and nasal cannula at 4 L due to her shortness of breath. She states she is not prescribed home oxygen. She states her neighbor recently had Covid and had an oxygen tank. Patient is unvaccinated for coronavirus and states she will not receive the vaccines have it murders babies. Patient states she would rather of Covid and receive the vaccine. Related Data Home Medications Medication Instructions Recorded Confirmed metoprolol succinate [Toprol XL] 50 mg PO DAILY 09/15/17 01/16/21 ascorbic acid-ascorbate sodium 1 wafer PO DAILY 07/12/20 01/16/21 (vitamin C) 500 mg oral wafer fluoxetine 40 mg capsule 40 mg PO DAILY 07/12/20 01/16/21 food supplemt, lactose-reduced ml PO BID ml 07/12/20 0.05 gram-1.5 kcal/mL oral liquid morphine 15 mg tablet,extended 15 mg PO Q8H PRN 07/12/20 01/16/21 release ropinirole 0.5 mg tablet 0.5 mg PO QHS 07/12/20 01/16/21 sucralfate 1 gram tablet 1 g PO BID 07/12/20 01/16/21 prednisone 40 mg PO DAILY #8 tab 01/11/21 01/16/21 albuterol sulfate 1 - 2 inh INHALATION Q4H PRN 01/16/21 01/16/21 carbidopa-levodopa 1 tab PO BID 01/16/21 01/16/21 ferrous gluconate 236 mg PO DAILY 01/16/21 01/16/21 gabapentin 100 mg PO QHS 01/16/21 01/16/21 hydrocodone-acetaminophen 1 tab PO QID PRN 01/16/21 01/16/21 Previous Rx's Medication Instructions Recorded prednisone 40 mg PO DAILY #8 tab 01/11/21 Allergies Allergy/AdvReac Type Severity Reaction Status Date / Time Sulfa (Sulfonamide Allergy Severe Anaphylaxsi Unverified 01/11/21 16:24 Antibiotics) s meperidine HCl [From Demerol] Allergy Intermediate Contraindicated, Unverified 01/11/21 16:24 seizures phenytoin sodium Allergy Intermediate Contraindicated, Unverified 01/11/21 16:24 [From Dilantin] seizures phenytoin sodium extended Allergy Intermediate Contraindicated, Unverified 01/11/21 16:24 [From Dilantin] seizures amoxicillin Allergy Verified 01/11/21 16:24 diazepam [From Valium] Allergy Verified 01/11/21 16:24 hydromorphone [From Dilaudid] Allergy Verified 01/11/21 16:24 midazolam HCl [From Versed] AdvReac Intermediate Psychosis Unverified 01/11/21 16:24 General Stated Complaint: SOB CRISTO: 3 Review of Systems All systems reviewed & are unremarkable except as noted in HPI and below Constitutional Constitutional: Reports as per HPI, Denies chills, Denies fever(s), Reports poor appetite and Reports weakness Eyes Eyes: Denies blurry vision ENT Ears, Nose, Mouth, and Throat: Denies dizziness, Denies sore throat and Denies throat swelling Cardiovascular Cardiovascular: Denies chest pain and Reports dyspnea Respiratory Respiratory: Reports cough and Reports dyspnea Gastrointestinal Gastrointestinal: Denies abdominal pain, Denies diarrhea and Denies vomiting Genitourinary Genitourinary: Denies hematuria and Denies dysuria Musculoskeletal Musculoskeletal: Denies back pain and Denies numbness Integumentary/Breasts Skin/Breast: Denies lesions and Denies rash Neurologic Neurologic: Denies dizziness, Denies localized weakness, Denies numbness and Reports weakness Allergic/Immunologic Allergic/Immunologic: Denies throat swelling [facility] Active Problem List Respiratory failure with hypoxia (Acute) COPD with acute exacerbation (Acute) Multifocal pneumonia (Acute) Acute exacerbation of chronic obstructive pulmonary disease (Acute) Current smoker (Acute) Narcotic withdrawal (Acute) Nausea (Acute) Hypertension (Acute) Seizures (Acute) Chronic pain (Acute) Anemia (Acute) Medical History Abdominal pain Cachexia Chest pain Chronic, continuous use of opioids Fatigue GI bleed Helicobacter pylori gastritis Hx of drug withdrawal syndrome Late effect of pelvic fracture Loss of vision Movement disorder PTSD (post-traumatic stress disorder) Temporal lobe epilepsy Vitamin D deficiency Social History Smoking/Tobacco Use Status: Current every day Tobacco Type: cigarettes Smoking risk assessment performed?: Yes Alcohol Intake: never Drug use: Daily Substance use type: marijuana Do you feel safe at home: Yes Do you feel safe in your relationship?: Yes Exam Const General: cooperative and no acute distress HENMT Head: normal to inspection Face and sinus: normal facial exam Eyes General: appearance normal, both eyes and all related structures EOM: EOM intact bilaterally Neck Neck: normal visual inspection and No submandibular swelling Lymphatic: no lymphadenopathy noted Chest Chest: normal inspection of the chest and no tenderness Resp Effort & Inspection: normal respiratory effort and able to speak in complete sentences Auscultation: rhonchi upper bilaterally and lower bilaterally and wheezes scattered wheezes Cardio Rate: regular rate Rhythm: regular rhythm GI Inspection: normal to inspection Palpation: soft, not firm, not rigid and nontender Auscultation: normal bowel sounds Back/Spine/Pelvis Thoracic/Lumbar Spine: thoracic and lumbar spine normal to inspection Pelvis: no pain with anterior-posterior compression Skin General skin exam: no rashes or lesions noted Neuro General: patient alert, patient awake and patient oriented x3 Cognition: normal cognition Speech: speech normal Motor: muscle tone normal throughout Sensory Exam: no sensory deficits noted Extrem General: normal to inspection, full ROM, capillary refill normal, no calf tenderness bilaterally and no edema Psych Appearance: grossly normal Mental Status: mental status grossly normal Speech and Movement: speech and movement normal Affect: normal affect Course Vital Signs Vital signs: Vital Signs Temperature 97.3 F L 01/16/21 07:58 Pulse 88 01/16/21 07:58 Respiratory Rate 16 01/16/21 07:58 Blood Pressure 154/91 H 01/16/21 07:58 Pulse Oximetry 97 01/16/21 07:58 Temperature 97.3 F L 01/16/21 07:58 Temperature Source Skin 01/16/21 07:58 Pulse 88 01/16/21 07:58 Respiratory Rate 16 01/16/21 07:58 Respiratory Effort 01/16/21 07:58 Blood Pressure 154/91 H 01/16/21 07:58 Blood Pressure Position Supine 01/16/21 07:58 Pulse Oximetry 97 01/16/21 07:58 Oxygen Delivery Method Nasal Cannula 01/16/21 07:58 Oxygen Flow Rate 6 01/16/21 07:58 Pain Level 4 01/16/21 07:58 Comment 01/16/21 07:58
--- NOTE | 2021-01-16 08:30 | RT.EKG_ITS ---
APPROVED REPORT Exam: Resting ECG Reason for Exam: shortness of breath Patient Location: E HR:80 bpm ECG Measurements Heart Rate 80 AXIS KS 169 P 85 QRSd 80 QRS -38 QT 399 T 80 QTc 460 Conclusion Sinus rhythm...normal P axis, V-rate 60- 99 Left axis deviation...QRS axis (-30,-90) Anterior infarct, old...Q >40mS, abnormal ST-T, V2-V5.\ Sinus. Anterior/Inferior Q waves. No STEMI. I have reviewed and interpreted ECG and agree with software generated interpretation.
[2021-01-16] MEDS: methylPREDNISolone SUCC 125 MG VIAL IVP (08:41)
[2021-01-16] MEDS: Normal Saline 500 ML IV (08:41)
[2021-01-16] MEDS: Albuterol/Ipratropium 3 ML UPD VIAL UPD ×3 (08:47→21:25)
--- NOTE | 2021-01-16 09:17 | DI.CT_ITS ---
Exam(s) CT CHEST PE CTA EXAM: CT CHEST PE CTA CLINICAL HISTORY: shortness of breath, hypoxia, recent pneumonia. TECHNIQUE: Imaging Protocol: Axial CT angiography was performed with multi-slice acquisition and mu lti-planar and/or 3D reconstructions. CONTRAST MATERIAL: Intravenous: Omnipaque 350 Contrast volume:structured data in ml COMPARISON: CT CT ABDOMEN PELVIS W from 05/20/2019 FINDINGS: CT angiography of the chest was performed with intravenous infusion of 60 cc of Omnipaque 350. There is marked breathing artifact which limits this examination. There are apparent senile pulmonary changes and probable changes of COPD. There are multifocal areas of ground-glass opacities in the upper lobes bilaterally suggesting acute pneumonitis. No pleural effusion. Tracheobronchial tree appears intact. No evidence of pulmonary embolic disease, although peripheral pulmonary arteries are poorly visualize d due to motion. Thoracic aorta is of normal diameter, no thoracic aortic aneurysm or dissection, ma cristobal branch vessels appear intact. No mediastinal or hilar adenopathy. Images obtained through the upper abdomen show unremarkable appearance of the visualized portions of the liver, spleen, pancreas, adrenals, and kidneys. IMPRESSION: Bilateral multifocal ground-glass opacities as described above, consistent with acute pneumonitis.. No evidence of pulmonary embolic disease. RADIATION DOSE DELIVERED: 171.9mGy.cm Total DLP 171.9mGy.cm Total DLP CTDIvol DATA REPOSITORY: All CT scans at this facility are submitted to the National Radiology Data Registry (NRDR) Dose Index Registry (DIR) with the [employer] ([employer]). RADIATION OPTIMIZATION: All CT scans at this facility use at least one of these dose optimization te chniques: automated exposure control; mA and/or kV adjustment per patient size (includes targeted exa ms where dose is matched to clinical indication); or iterative reconstruction.
[2021-01-16] MEDS: Normal Saline - Diluent 50 ML VIAL IV (09:35)
[2021-01-16] MEDS: Omnipaque 350 MG/ML 100 ML BTL 60 ML IJ (09:38)
[2021-01-16] MEDS: Normal Saline Flush 10 ML SYR IVP (09:40)
[2021-01-16] MEDS: ACETAMINOPHEN 1,000 MG/100 ML BTL 400 MG IVPB (09:43)
[2021-01-16 09:57] LABS: Source Nasal/Nares
[2021-01-16 10:13] LABS: Abs Immature Grans 0.05 10^3/uL (0.0-0.06); Absolute Basophil Count 0.03 10^3/uL (0.0-0.2); Absolute Lymphocyte Count 1.45 10^3/uL (1.2-3.4); Basophils % 0.2; Eosinophils % 0.1; HCT 44.5 % (36.0-46.0); HGB 14.8 g/dL (11.2-15.7); Immature Grans % 0.3; Lactate 1.6 mmol/L (0.6-1.4); Lymphocytes % 8.9; MCH 29.4 pg (27.0-33.0); MCHC 33.3 % (32.0-36.0); MCV 88.5 fL (80-95); MPV 9.1 fL (8.0-11.0); Monocytes % 5.5; Nucleated RBC 0 %; Platelet Count 373 10^3/uL (130-400); RBC 5.03 10^6/uL (3.93-5.22); RDW 15.2 % (11.7-14.6); RDW-SD 49.7 fL; WBC 16.28 10^3/uL (4.4-10.8)
[2021-01-16 10:15] LABS: Absolute Eosinophil Count 0.02 10^3/uL (0.0-0.7); Absolute Neutrophil Count 13.84 10^3/uL (1.2-6.7)
[2021-01-16 10:38] LABS: ALT 10 U/L (14-59); AST 27 U/L (15-37); Albumin 3.6 g/dL (3.4-5.0); Alkaline Phosphatase 66 U/L (46-116); Anion Gap 7.4 mmol/L (3-11); BUN 26 mg/dL (7-18); Bilirubin, Total 0.4 mg/dL (0.2-1.0); CO2 25.6 mmol/L (21.0-32.0); CREATININE 0.6 mg/dL (0.55-1.02); Calcium 9.2 mg/dL (8.5-10.1); Chloride 100 mmol/L (98-107); Glucose 120 mg/dL (74-106); Magnesium 2.2 mg/dL (1.8-2.4); Potassium 4.4 mmol/L (3.5-5.1); Sodium 133 mmol/L (136-145); Total Protein 8.1 g/dL (6.4-8.2)
[2021-01-16 10:41] LABS: Troponin I 0.32 ng/mL (<0.06)
--- NOTE | 2021-01-16 10:45 | RT.EKG_ITS ---
APPROVED REPORT Exam: Resting ECG Reason for Exam: shortness of breath Patient Location: E HR:75 bpm ECG Measurements Heart Rate 75 AXIS NH 166 P 82 QRSd 83 QRS -33 QT 429 T 88 QTc 478 Conclusion Sinus rhythm...normal P axis, V-rate 60- 99 Left axis deviation...QRS axis (-30,-90) Anterior infarct, old...Q >40mS, abnormal ST-T, V2-V5 Nonspecific T abnormalities, lateral leads...T <-0.10mV, I aVL V5 V6. Sinus. No STEMI. I have reviewed and interpreted ECG and agree with software generated interpretation.
[2021-01-16 11:16] LABS: Procalcitonin < 0.1 ng/mL
[2021-01-16] MEDS: levoFLOXacin 750 MG/150 ML BAG 100 MG IVPB (11:23)
[2021-01-16] MEDS: LORazepam 2 MG/ML VIAL 1 MG IVP (11:24)
[2021-01-16 11:40] LABS: COVID-19 PCR Negative (Negative)
[2021-01-16 12:18] LABS: Troponin I 0.39 ng/mL (<0.06)
--- NOTE | 2021-01-16 12:22 | W.PULMCON ---
General Date Of Service Date of service: 01/16/21 Time of Service: 12:22 Reason for Consult: COPD exacerbation Assessment and Plan Assessment and plan (1) COPD with acute exacerbation: Status: Acute (2) Multifocal pneumonia: Status: Acute (3) Current smoker: Status: Acute (4) Respiratory failure with hypoxia: Status: Acute (5) Chronic pain: Status: Acute Assessment and plan: This is a 75 yo female with over 120 pack year smoking history who presents after failure of outpatient management of a COPD exacerbation. She is found to have multilobar GGO that likely represent an atypical pneumonia (with a negative procal). I recommend trying to isolate the organism, particularly given her outpatient azithromycin failure. She does not have any clear risk factors for MRSA so agree we do not need to worry about coverage for this. She also has untreated COPD and continues to smoke (up until 5 days ago). She should be on maintenance therapy for this. Although her bicarb appears normal we should still ensure that she is not having any CO2 retention that would necessitate the need for BiPAP. She does have a troponin elevation that I suspect to be related to hypoxemia and not ACS. Hypoxic respiratory failure - supplemental oxygen for sats 88-92% - Incentive spirometry and VibraPEP - VBG as below COPD Exacerbation - start Stiolto - Duoneb QID - albuterol neb q2hr prn - Proair q4hr prn - Prednisone 40mg for 5 days, 30mg for 4 days, 20mg for 4 days, 10mg for 3 days, 5mg for 3 days - I will arrange follow up for her in my clinic - recommend VBG to assess for hypercapnic respiratory failure - will check phosphorus as a low phos level can cause diaphragmatic weakness Current smoking - agree with nicotine patches - smoking cessation Multilobar Pneumonia - agree with Levaquin - urine antigens for Strep pneumonia and Legionella antigens - recommend flu and RSV swab - blood cultures obtained in ED - sputum culture History of Present Illness Narrative: This is a 75 yo female with over 120 pack years of smoking who started feeling ill a week ago. She developed shortness of breath and it got to point where she presented to the ER. She was diagnosed with a COPD exacerbation and given azithromycin and prednisone. She continued taking these medications and thought she started feeling better so went to chop wood and then became extremely short of breath and was unable to recover. She tells me she has not been formally diagnosed with COPD but she suspects she has it. In the ED she required up to 6L NC but during my assessment she was on 5L. She is being given Levaquin, was given 125 methylprednisilone, nebulizers and morphine. She complains primarily of lung pain that seems to localize to her back. She also complains of shortness of breath. She tells me she has not made a habit of using inhalers. She endorses cough as well. Review of Systems All systems reviewed & are unremarkable except as noted in HPI and below PFSH Active Problem List (Updated 01/16/21 @ 12:35 by Isabel Shetty MD) Respiratory failure with hypoxia (Acute) COPD with acute exacerbation (Acute) Multifocal pneumonia (Acute) Acute exacerbation of chronic obstructive pulmonary disease (Acute) Current smoker (Acute) Narcotic withdrawal (Acute) Nausea (Acute) Hypertension (Acute) Seizures (Acute) Chronic pain (Acute) Anemia (Acute) Medical History (Updated 01/16/21 @ 12:35 by Isabel Shetty MD) Abdominal pain Cachexia Chest pain Chronic, continuous use of opioids Fatigue GI bleed Helicobacter pylori gastritis Hx of drug withdrawal syndrome Late effect of pelvic fracture Loss of vision Movement disorder PTSD (post-traumatic stress disorder) Temporal lobe epilepsy Vitamin D deficiency Social History (Updated 07/12/20 @ 09:59 by Amber Faith) Smoking/Tobacco Use Status: Current every day Tobacco Type: cigarettes Smoking risk assessment performed?: Yes Alcohol Intake: never Drug use: Daily Substance use type: marijuana Do you feel safe at home: Yes Do you feel safe in your relationship?: Yes Visit Medication and Allergies Active Medications Generic Name Dose Route Start Last Admin Trade Name Freq PRN Reason Stop Dose Admin Acetaminophen 0 mg 01/16/21 10:02 Acetaminophen 325 Mg Tab PO Q4H PRN PRN Albuterol Sulfate 2.5 mg 01/16/21 10:02 Albuterol 2.5 Mg/3 Ml Inh Soln Vial UPD Q2H PRN PRN Budesonide/Formoterol Fumarate 2 puff 01/16/21 20:00 Budesonide/Formoterol 160/4.5 6 Gm 60 Puff Inh IH BID OZIEL Device 1 each 01/16/21 11:00 Inhaler, Assist Device DIRECTED OZIEL Dimethicone/Zinc Oxide 0 gm 01/16/21 09:56 Carlos Protect Cream 142 Gm Tube TP PRN PRN Enoxaparin Sodium 40 mg 01/16/21 11:00 Enoxaparin 40 Mg/0.4 Ml Syr SC Q24H [facility] Levofloxacin 750 mg in 150 mls @ 100 mls/hr 01/18/21 08:00 Levaquin Premixed Bag IVPB Q48H [facility] Protocol Magnesium Oxide 400 mg 01/16/21 20:00 Magnesium Oxide 400 Mg Tab PO BID [facility] Nicotine 14 mg 01/16/21 10:02 Nicotine 14 Mg/24 Hr Patch TD DAILY PRN PRN Polyethylene Glycol 17 gm 01/16/21 10:02 Polyethylene Glycol 3350 17 Gm Packet PO DAILY PRN PRN Constipation Prednisone 40 mg 01/17/21 08:30 Prednisone 20 Mg Tab PO DAILY [facility] Sodium Chloride 50 ml 01/16/21 09:45 01/16/21 09:35 Normal Saline - Diluent 50 Ml Vial IV 50 ml .FOR DI USE OZIEL Administration Allergies Sulfa (Sulfonamide Antibiotics) Allergy (Severe, Unverified 01/11/21 16:24) Anaphylaxsis meperidine HCl [From Demerol] Allergy (Intermediate, Unverified 01/11/21 16:24) Contraindicated, seizures phenytoin sodium [From Dilantin] Allergy (Intermediate, Unverified 01/11/21 16:24) Contraindicated, seizures phenytoin sodium extended [From Dilantin] Allergy (Intermediate, Unverified 01/11/21 16:24) Contraindicated, seizures amoxicillin Allergy (Verified 01/11/21 16:24) diazepam [From Valium] Allergy (Verified 01/11/21 16:24) hydromorphone [From Dilaudid] Allergy (Verified 01/11/21 16:24) midazolam HCl [From Versed] Adverse Reaction (Intermediate, Unverified 01/11/21 16:24) Psychosis Exam Const General: in distress moderate and respiratory and frail appearing Nutritional Appearance: underweight HENMT Head: normocephalic Ears: external ears normal and no periauricular adenopathy General nose exam: nasal mucous membranes and turbinates normal Face and sinus: sinuses nontender Mouth: oropharynx normal and moist mucous membranes Eyes General: appearance normal, both eyes and all related structures Pupils: PERRL Neck Neck: normal visual inspection and no lymphadenopathy Chest Chest: normal inspection of the chest Resp Effort & Inspection: normal respiratory effort Auscultation: no rales, no rhonchi and wheezes (bilateral and diffuse) Cardio Rate: regular rate Rhythm: regular rhythm Heart Sounds: S1 normal, S2 normal and no murmurs Pulses: radial pulses present bilaterally GI Inspection: normal to inspection Palpation: soft Skin General skin exam: no rashes or lesions noted Neuro General: patient alert, patient awake and patient oriented x3 Extrem General: no clubbing, cyanosis or edema Psych Mental Status: mental status grossly normal Affect: normal affect Attitude: cooperative Results Last Vital Signs Temp 36.3 C L 01/16/21 07:58 Pulse 82 01/16/21 09:00 Resp 17 01/16/21 09:00 BP 138/98 H 01/16/21 09:00 Pulse Ox 96 01/16/21 09:00 Labs Result diagrams: 01/16/21 10:05 01/16/21 10:05 Labs: Laboratory Results - last 24 hr 01/16/21 01/16/21 01/16/21 09:53 10:05 10:05 WBC 16.28 H RBC 5.03 Hgb 14.8 Hct 44.5 MCV 88.5 MCH 29.4 MCHC 33.3 RDW 15.2 H Plt Count 373 MPV 9.1 Immature Gran % 0.3 Neutrophils % 85.0 Lymphocytes % 8.9 Monocytes % 5.5 Eosinophils % 0.1 Basophils % 0.2 Nucleated RBC % 0 Absolute Neutrophils 13.84 H Absolute Lymphocytes 1.45 Absolute Monocytes 0.90 H Absolute Eosinophils 0.02 Absolute Basophils 0.03 VBG Lactate Sodium 133 L Potassium 4.4 Chloride 100 Carbon Dioxide 25.6 Anion Gap 7.4 BUN 26 H Creatinine 0.6 Estimated GFR/1.73 m2 >= 60.00 Glucose 120 H Calcium 9.2 Magnesium 2.2 Total Bilirubin 0.4 AST 27 ALT 10 L Alkaline Phosphatase 66 Troponin I 0.32 H* Total Protein 8.1 Albumin 3.6 Procalcitonin COVID-19 Source Nasal/Nares SARS-CoV-2 (PCR) Negative 01/16/21 01/16/21 10:05 11:50 WBC RBC Hgb Hct MCV MCH MCHC RDW Plt Count MPV Immature Gran % Neutrophils % Lymphocytes % Monocytes % Eosinophils % Basophils % Nucleated RBC % Absolute Neutrophils Absolute Lymphocytes Absolute Monocytes Absolute Eosinophils Absolute Basophils VBG Lactate 1.6 H Sodium Potassium Chloride Carbon Dioxide Anion Gap BUN Creatinine Estimated GFR/1.73 m2 Glucose Calcium Magnesium Total Bilirubin AST ALT Alkaline Phosphatase Troponin I 0.39 H* Total Protein Albumin Procalcitonin < 0.1 COVID-19 Source SARS-CoV-2 (PCR)
[2021-01-16] MEDS: Albuterol 2.5 MG/3 ML INH SOLN VIAL UPD (12:30)
[2021-01-16] MEDS: HYDROcodone 5/Acetaminophen 325 TAB PO (13:18)
[2021-01-16 13:34] LABS: PHOSPHORUS 3.1 mg/dL (2.6-4.7)
[2021-01-16 13:59] LABS: BE (Venous) -3 mmol/L (-2-3); HCO3 (Venous) 22 mmol/L (23-28); O2 Sat (Venous) 35 %; TCO2 (Venous) 20 mmol/L (24-29); pCO2 (Venous) 38 mmHg (41-51); pH (Venous) 7.38 (7.31-7.41); pO2 (Venous) 22 mmHg
--- NOTE | 2021-01-16 14:32 | PHACLINREV_ITS ---
Pharmacy Admission Review - Admission Clinical Review (Last Updated 07/12/20 @ 10:03 by Amber Faith) Respiratory failure with hypoxia (Acute) COPD with acute exacerbation (Acute) Multifocal pneumonia (Acute) Acute exacerbation of chronic obstructive pulmonary disease (Acute) Current smoker (Acute) Chronic pain (Acute) Sulfa (Sulfonamide Antibiotics) Allergy (Severe, Unverified 01/11/21 16:24) Anaphylaxsis meperidine HCl [From Demerol] Allergy (Intermediate, Unverified 01/11/21 16:24) Contraindicated, seizures phenytoin sodium [From Dilantin] Allergy (Intermediate, Unverified 01/11/21 16:24) Contraindicated, seizures phenytoin sodium extended [From Dilantin] Allergy (Intermediate, Unverified 01/11/21 16:24) Contraindicated, seizures amoxicillin Allergy (Verified 01/11/21 16:24) diazepam [From Valium] Allergy (Verified 01/11/21 16:24) hydromorphone [From Dilaudid] Allergy (Verified 01/11/21 16:24) midazolam HCl [From Versed] Adverse Reaction (Intermediate, Unverified 01/11/21 16:24) Psychosis Resuscitation Status Full Code Height 5 ft 4 in Weight 37.3 kg - Renal Dosing Renal Dosing: BUN 26 mg/dL (7-18) H 01/16/21 10:05 Creatinine 0.6 mg/dL (0.55-1.02) 01/16/21 10:05 Medications needing adjustments: Intervened (SCr: 0.6, CrCl: 34.67mL/min. Levofloxacin dose adjusted based on renal function.) - Anticoagulation Anticoagulation: Hgb 14.8 g/dL (11.2-15.7) 01/16/21 10:05 Hct 44.5 % (36.0-46.0) 01/16/21 10:05 Plt Count 373 10^3/uL (130-400) 01/16/21 10:05 Creatinine 0.6 mg/dL (0.55-1.02) 01/16/21 10:05 DVT Prophylaxis: Reviewed Medications: Enoxaparin (Enoxaparin 40mg SC Q24H) Therapeutic Anticoagulation: N/A - Opiate Usage Evaluate Pain Scale/Pains Meds: Reviewed (Pain controlled, given PRN Hydrocodone/APAP 5/325mg PO and Morphine 4mg IVP in ED. Patient is on Hydrocod one/APAP 10/325mg QID PRN and Morphine ER 15mg Q8H PRN outpatient.) Scheduled Bowel Reg ordered if on Opiates?: No (Polyethylene glycol PRN) - Relevant Labs Sodium 133 mmol/L (136-145) L 01/16/21 10:05 Potassium 4.4 mmol/L (3.5-5.1) 01/16/21 10:05 Chloride 100 mmol/L (98-107) 01/16/21 10:05 Phosphorus 3.1 mg/dL (2.6-4.7) 01/16/21 10:05 Magnesium 2.2 mg/dL (1.8-2.4) 01/16/21 10:05 Electrolytes, C-Reactive P, ESR: Intervened (Magnesium level 2.2, Magnesium oxide 400mg BID ordered, spoke with provider and canceled order.) - DM Control DM Control: Glucose 120 mg/dL (74-106) H 01/16/21 10:05 Insulin Dosing: N/A - Heart Failure/RI Heart Failure/RI: Troponin I 0.39 ng/mL (<0.06) H* 01/16/21 11:50 EF%, MARIXA's, B-Blockers, Diuretics: N/A - BP Control BP Control: Blood Pressure 152/87 Blood Pressure 161/93 Blood Pressure 161/104 Blood Pressure 162/103 Blood Pressure 153/91 Blood Pressure 154/90 Blood Pressure 138/98 Blood Pressure 148/100 Blood Pressure 152/90 Blood Pressure 142/87 Blood Pressure 156/97 Blood Pressure 154/91 If elevated: Reviewed (Blood pressure elevated so far this admission. No home meds, monitor.) - Qtc Review If Elevated: Intervened (QTc 478 on admission. Patient currently on Levofloxacin, made provider aware.) - IV to PO Switch IV Medications: Reviewed - Home Meds Home Med List reviewed: Intervened Relevent Home Meds Not ordered & why?: Hydrocodone/APAP 10/325mg QID PRN, Morphine ER 15mg TID PRN and Carbidopa/Levodopa 25/250mg BID not ordered. Ropinirole 0.5mg HS and Gabapentin 100mg HS - appear on med rec, but have never been picked up at patient pharmac nor are they on the home med lists received from primary care office. - Current meds Current Medication Order Review: Reviewed - Comments Comments/Follow Ups: Continue to monitor renal function, pain level, vital signs, labs and medication changes (avoid QTc prolonging medications and renal dose adjustments). Antibiotic Activity - Pharmacy Antibiotic Review Pharmacy Antibiotic Activity: Reviewed, no change (Levofloxacin 750mg Q48H ordered. Watch for C&S results.)
--- NOTE | 2021-01-16 15:44 | HPE_ITS ---
Date of service: 01/16/21 Time of Service: 16:08 Assessment and Plan Assessment and plan (1) Respiratory failure with hypoxia: Status: Acute Assessment and plan: Secondary to COPD exacerbation and PNA Stable on 2L supplemental O2 per NC Initially having difficulty keep saturation monitor and NC on patient; agitated d/t generalized pain and not having had her pain meds since possibly this AM prior to presentation to ED. (2) COPD with acute exacerbation: Status: Acute Assessment and plan: Pulmonary consulted. Stiolto added. Cont Duonebs and prn albuterol. Prednisone 40mg po daily; IV solumedrol 125mg given in ED. Acapella and IS. (3) Multifocal pneumonia: Status: Acute Assessment and plan: Levaquin 750 mg IV Q48H. Urine strep pneumo and Legionella antigens ordered. Sputum culture ordered. Blood cultures obtained. (4) Current smoker: Status: Acute Assessment and plan: Nicoderm patch (5) Hypertension: Status: Acute Assessment and plan: SBP elevated in the 140-160's; likely some component d/t pain. Cont Metoprolol. Monitor. (6) Chronic pain: Status: Acute Assessment and plan: Unclear location but she states pain is in most joints / allover. Cont MS Contin 15mg tabs BID; home med list states it is taken Q8H prn. Will adjust as necessary. Cont Percocet 10mg I2ngivn prn. She was given a 4mg dose of morphine IV in the ED and 6 mg IM once admitted (IV was pulled out by pt). Cont Neurontin (7) Temporal lobe epilepsy: Assessment and plan: Not on seizure medication other than Neurotin which is presumably for pain. (8) Hx of drug withdrawal syndrome: Assessment and plan: Cont home narcotics and monitor closely for adverse effects / somnolence. (9) Cachexia: Assessment and plan: BMI of 14. Failure to thrive. Once she is more calm and conversant will discuss supplementation. Nutrition consulted. History of Present Illness History of Present Illness Chief Complaint: Shortness of breath. Narrative: This is a 75 yo femal with a PMH of COPD, tobacco and marijuana use, HTN, Sizures, Anemia, previous narcotic withdrawal. She was seen in the ED at [facility] 5 days prior to this admission and dxd with pneumonia. She was d/c'd to home on albuterol, prednisone and azithromycin. She did not initially fill the scripts but did 2 days ago. She had used her neighbors home O2 at 4L starting one month ago; hasn't seen him since then; he is COVID positive. She tested Covid negative 5 days ago and at time of this admission. No reported fever/chills, CP/palpitations. No N/V/abd pain/diarrhea. No dysuria. On 2L supplemental O2 per NC with a saturation of 95%. CT chest showed bilateral multifocal ground-glass opacities. No pulmonary emboli. WBC count 16.28. Na 133. BUN 26. Creatinine 0.6. Troponin 0.32 > 0.39. VBG with pCO2 of 38. pH 7.38. pO2 22. Levaquin 750mg IV Q48 hours initiated. IV solumedrol 125mg given. Pulmonary medicine consulted. Review of Systems All systems reviewed & are unremarkable except as noted in HPI and below PFSH Active Problem List Respiratory failure with hypoxia (Acute) COPD with acute exacerbation (Acute) Multifocal pneumonia (Acute) Acute exacerbation of chronic obstructive pulmonary disease (Acute) Current smoker (Acute) Narcotic withdrawal (Acute) Nausea (Acute) Hypertension (Acute) Seizures (Acute) Chronic pain (Acute) Anemia (Acute) Medical History Abdominal pain Cachexia Chest pain Chronic, continuous use of opioids Fatigue GI bleed Helicobacter pylori gastritis Hx of drug withdrawal syndrome Late effect of pelvic fracture Loss of vision Movement disorder PTSD (post-traumatic stress disorder) Temporal lobe epilepsy Vitamin D deficiency Social History Smoking/Tobacco Use Status: Current every day Tobacco Type: cigarettes Smoking risk assessment performed?: Yes Alcohol Intake: never Drug use: Daily Substance use type: marijuana Do you feel safe at home: Yes Do you feel safe in your relationship?: Yes Meds Allergies and Home Medications Allergies Allergy/AdvReac Type Severity Reaction Status Date / Time Sulfa (Sulfonamide Allergy Severe Anaphylaxsi Unverified 01/11/21 16:24 Antibiotics) s meperidine HCl [From Demerol] Allergy Intermediate Contraindicated, Unverified 01/11/21 16:24 seizures phenytoin sodium Allergy Intermediate Contraindicated, Unverified 01/11/21 16:24 [From Dilantin] seizures phenytoin sodium extended Allergy Intermediate Contraindicated, Unverified 01/11/21 16:24 [From Dilantin] seizures amoxicillin Allergy Verified 01/11/21 16:24 diazepam [From Valium] Allergy Verified 01/11/21 16:24 hydromorphone [From Dilaudid] Allergy Verified 01/11/21 16:24 midazolam HCl [From Versed] AdvReac Intermediate Psychosis Unverified 01/11/21 16:24 Home Medications Medication Instructions Recorded Confirmed Type metoprolol succinate [Toprol XL] 50 mg PO DAILY 09/15/17 01/16/21 History ascorbic acid-ascorbate sodium 1 wafer PO DAILY 07/12/20 01/16/21 History (vitamin C) 500 mg oral wafer fluoxetine 40 mg capsule 40 mg PO DAILY 07/12/20 01/16/21 History food supplemt, lactose-reduced ml PO BID ml 07/12/20 History 0.05 gram-1.5 kcal/mL oral liquid morphine 15 mg tablet,extended 15 mg PO Q8H PRN 07/12/20 01/16/21 History release ropinirole 0.5 mg tablet 0.5 mg PO QHS 07/12/20 01/16/21 History sucralfate 1 gram tablet 1 g PO BID 07/12/20 01/16/21 History prednisone 40 mg PO DAILY #8 tab 01/11/21 01/16/21 Rx albuterol sulfate 1 - 2 inh INHALATION Q4H PRN 01/16/21 01/16/21 History carbidopa-levodopa 1 tab PO BID 01/16/21 01/16/21 History ferrous gluconate 236 mg PO DAILY 01/16/21 01/16/21 History gabapentin 100 mg PO QHS 01/16/21 01/16/21 History hydrocodone-acetaminophen 1 tab PO QID PRN 01/16/21 01/16/21 History Exam Const General: disheveled, frail appearing and other (Pacing around room; in pain.) Nutritional Appearance: cachectic HENME Head: normocephalic and atraumatic Eyes General: appearance normal, both eyes and all related structures Sclera: sclerae normal Resp Effort & Inspection: normal respiratory effort Auscultation: rhonchi and wheezes Cardio Rate: regular rate Rhythm: regular rhythm Heart Sounds: S1 normal and S2 normal GI Palpation: soft and nontender Neuro General: no focal motor deficits Gait: normal gait Extrem General: no pedal edema and no calf tenderness Results Labs Result diagrams: 01/16/21 10:05 01/16/21 10:05 Labs: Laboratory Results - last 24 hr 01/16/21 01/16/21 01/16/21 09:53 10:05 10:05 WBC 16.28 H RBC 5.03 Hgb 14.8 Hct 44.5 MCV 88.5 MCH 29.4 MCHC 33.3 RDW 15.2 H Plt Count 373 MPV 9.1 Immature Gran % 0.3 Neutrophils % 85.0 Lymphocytes % 8.9 Monocytes % 5.5 Eosinophils % 0.1 Basophils % 0.2 Nucleated RBC % 0 Absolute Neutrophils 13.84 H Absolute Lymphocytes 1.45 Absolute Monocytes 0.90 H Absolute Eosinophils 0.02 Absolute Basophils 0.03 VBG pH VBG pCO2 VBG pO2 VBG HCO3 VBG Total CO2 VBG O2 Saturation VBG Base Excess VBG Lactate Sodium 133 L Potassium 4.4 Chloride 100 Carbon Dioxide 25.6 Anion Gap 7.4 BUN 26 H Creatinine 0.6 Estimated GFR/1.73 m2 >= 60.00 Glucose 120 H Calcium 9.2 Phosphorus 3.1 Magnesium 2.2 Total Bilirubin 0.4 AST 27 ALT 10 L Alkaline Phosphatase 66 Troponin I 0.32 H* Total Protein 8.1 Albumin 3.6 Procalcitonin Specimen Type COVID-19 Source Nasal/Nares SARS-CoV-2 (PCR) Negative Influenza Type A RNA Influenza Type B RNA RSV RNA Qual (PCR) 01/16/21 01/16/21 01/16/21 10:05 11:50 13:48 WBC RBC Hgb Hct MCV MCH MCHC RDW Plt Count MPV Immature Gran % Neutrophils % Lymphocytes % Monocytes % Eosinophils % Basophils % Nucleated RBC % Absolute Neutrophils Absolute Lymphocytes Absolute Monocytes Absolute Eosinophils Absolute Basophils VBG pH 7.38 VBG pCO2 38 L VBG pO2 22 VBG HCO3 22 L VBG Total CO2 20 L VBG O2 Saturation 35 VBG Base Excess -3 L VBG Lactate 1.6 H Sodium Potassium Chloride Carbon Dioxide Anion Gap BUN Creatinine Estimated GFR/1.73 m2 Glucose Calcium Phosphorus Magnesium Total Bilirubin AST ALT Alkaline Phosphatase Troponin I 0.39 H* Total Protein Albumin Procalcitonin < 0.1 Specimen Type COVID-19 Source SARS-CoV-2 (PCR) Influenza Type A RNA Influenza Type B RNA RSV RNA Qual (PCR) 01/16/21 Unknown WBC RBC Hgb Hct MCV MCH MCHC RDW Plt Count MPV Immature Gran % Neutrophils % Lymphocytes % Monocytes % Eosinophils % Basophils % Nucleated RBC % Absolute Neutrophils Absolute Lymphocytes Absolute Monocytes Absolute Eosinophils Absolute Basophils VBG pH VBG pCO2 VBG pO2 VBG HCO3 VBG Total CO2 VBG O2 Saturation VBG Base Excess VBG Lactate Sodium Potassium Chloride Carbon Dioxide Anion Gap BUN Creatinine Estimated GFR/1.73 m2 Glucose Calcium Phosphorus Magnesium Total Bilirubin AST ALT Alkaline Phosphatase Troponin I Total Protein Albumin Procalcitonin Specimen Type Cancelled COVID-19 Source SARS-CoV-2 (PCR) Influenza Type A RNA Cancelled Influenza Type B RNA Cancelled RSV RNA Qual (PCR) Cancelled Last Vital Signs Temp 36.4 C L 01/16/21 13:46 Pulse 101 H 01/16/21 13:46 Resp 24 01/16/21 13:46 BP 152/87 H 01/16/21 13:46 Pulse Ox 2 L 01/16/21 13:46
[2021-01-16] MEDS: HYDROcodone 10/Acetaminophen 325 TAB PO (16:00)
[2021-01-16] MEDS: Enoxaparin 40 MG/0.4 ML SYR SC (16:15)
[2021-01-16 18:07] LABS: Troponin I 0.59 ng/mL (<0.06)
--- NOTE | 2021-01-16 20:00 | RT.EKG_ITS ---
APPROVED REPORT Exam: Resting ECG Reason for Exam: elevated troponin Patient Location: I HR:99 bpm ECG Measurements Heart Rate 99 AXIS DC 163 P 86 QRSd 77 QRS -39 QT 395 T 176 QTc 508 Conclusion Sinus rhythm...normal P axis, V-rate 60- 99 Inferior infarct, old...Q >35mS, II III aVF Anterior infarct, age indeterminate...Q >35mS, T neg, in V2-V5 Prolonged QT interval...QTc >500mS
[2021-01-16] MEDS: Gabapentin 100 MG CAP PO (21:22)
[2021-01-16] MEDS: rOPINIRole 0.5 MG TAB PO (21:23)
[2021-01-16] MEDS: Sucralfate 1 GM TAB PO (21:24)
[2021-01-16] MEDS: Aspirin E.C. 325 MG TABEC PO (21:56)
[2021-01-16 22:34] LABS: Troponin I 0.68 ng/mL (<0.06)
[2021-01-17] VITALS (16 sets, daily range): BP systolic 110–149; BP diastolic 72–85; PULSE 20–94; RESP 1–20; TEMP 36.5–37.6; O2SAT 94–98
[2021-01-17] MEDS: Albuterol 2.5 MG/3 ML INH SOLN VIAL UPD (00:12)
--- NOTE | 2021-01-17 00:26 | PGE_ITS ---
Date of Service Date of service: 01/17/21 Time of Service: 00:26 Subjective Subjective Interval history since last seen: Ms Perez has new T wave inversions on her EKG inferiolaterally. Her Troponin is now 0.68 (<-0.59<-0.39<-0.32). She denies ever having chest pain. She remains comfortable on 2L of O2 by NC laying flat. Received 325 mg ASA. I have contacted [facility] cardiology to obtain consult and possible transfer to [facility] for further workup/intervention for what appears to be an NSTEMI. Discussed the case with Dr Patrick of cardiology. He reviewed the patient's CTA of the chest where he can see LAD and RCA calcifications and her LV looked dilated. He feels that the DDx is true NSTEMI from plaque rupture vs demand ischemia in setting of pulmonary disease vs stress cardiomyopathy, which would give a similar appearance on the EKG. He recommended continuing Asa, adding heparin bolus/drip and atorvastatin 80 mg. He specifically advised against starting plavix, citing ACS guidelines from 2020. Recommends against BB in setting of COPD exacerbation. Recommends no nitroglycerin as the patient is chest pain-free. Recommends that we obtain an echo in am and contact [facility] cardiology again to determine the next steps, such as possible transfer for intervention. Specifically, if echo showed focal wall motion abnormalities or a complete LV dilation, those findings would be more concerning. The patient is in agreement with a possible transfer. Objective Last Vital Signs Temp 35.9 C L 01/16/21 22:00 Pulse 90 01/16/21 22:00 Resp 18 01/16/21 22:00 BP 126/76 01/16/21 22:00 Pulse Ox 94 01/16/21 22:00 Laboratory Results - last 24 hr 01/16/21 01/16/21 01/16/21 09:53 10:05 10:05 WBC 16.28 H RBC 5.03 Hgb 14.8 Hct 44.5 MCV 88.5 MCH 29.4 MCHC 33.3 RDW 15.2 H Plt Count 373 MPV 9.1 Immature Gran % 0.3 Neutrophils % 85.0 Lymphocytes % 8.9 Monocytes % 5.5 Eosinophils % 0.1 Basophils % 0.2 Nucleated RBC % 0 Absolute Neutrophils 13.84 H Absolute Lymphocytes 1.45 Absolute Monocytes 0.90 H Absolute Eosinophils 0.02 Absolute Basophils 0.03 VBG pH VBG pCO2 VBG pO2 VBG HCO3 VBG Total CO2 VBG O2 Saturation VBG Base Excess VBG Lactate Sodium 133 L Potassium 4.4 Chloride 100 Carbon Dioxide 25.6 Anion Gap 7.4 BUN 26 H Creatinine 0.6 Estimated GFR/1.73 m2 >= 60.00 Glucose 120 H Calcium 9.2 Phosphorus 3.1 Magnesium 2.2 Total Bilirubin 0.4 AST 27 ALT 10 L Alkaline Phosphatase 66 Troponin I 0.32 H* NT-Pro-B Natriuret Pep Total Protein 8.1 Albumin 3.6 Procalcitonin Specimen Type COVID-19 Source Nasal/Nares SARS-CoV-2 (PCR) Negative Influenza Type A RNA Influenza Type B RNA RSV RNA Qual (PCR) 01/16/21 01/16/21 01/16/21 10:05 11:50 13:48 WBC RBC Hgb Hct MCV MCH MCHC RDW Plt Count MPV Immature Gran % Neutrophils % Lymphocytes % Monocytes % Eosinophils % Basophils % Nucleated RBC % Absolute Neutrophils Absolute Lymphocytes Absolute Monocytes Absolute Eosinophils Absolute Basophils VBG pH 7.38 VBG pCO2 38 L VBG pO2 22 VBG HCO3 22 L VBG Total CO2 20 L VBG O2 Saturation 35 VBG Base Excess -3 L VBG Lactate 1.6 H Sodium Potassium Chloride Carbon Dioxide Anion Gap BUN Creatinine Estimated GFR/1.73 m2 Glucose Calcium Phosphorus Magnesium Total Bilirubin AST ALT Alkaline Phosphatase Troponin I 0.39 H* NT-Pro-B Natriuret Pep Total Protein Albumin Procalcitonin < 0.1 Specimen Type COVID-19 Source SARS-CoV-2 (PCR) Influenza Type A RNA Influenza Type B RNA RSV RNA Qual (PCR) 01/16/21 01/16/21 01/16/21 17:28 22:05 22:05 WBC RBC Hgb Hct MCV MCH MCHC RDW Plt Count MPV Immature Gran % Neutrophils % Lymphocytes % Monocytes % Eosinophils % Basophils % Nucleated RBC % Absolute Neutrophils Absolute Lymphocytes Absolute Monocytes Absolute Eosinophils Absolute Basophils VBG pH VBG pCO2 VBG pO2 VBG HCO3 VBG Total CO2 VBG O2 Saturation VBG Base Excess VBG Lactate Sodium Potassium Chloride Carbon Dioxide Anion Gap BUN Creatinine Estimated GFR/1.73 m2 Glucose Calcium Phosphorus Magnesium Total Bilirubin AST ALT Alkaline Phosphatase Troponin I 0.59 H* 0.68 H* NT-Pro-B Natriuret Pep 28032 H Total Protein Albumin Procalcitonin Specimen Type COVID-19 Source SARS-CoV-2 (PCR) Influenza Type A RNA Influenza Type B RNA RSV RNA Qual (PCR) 01/16/21 Unknown WBC RBC Hgb Hct MCV MCH MCHC RDW Plt Count MPV Immature Gran % Neutrophils % Lymphocytes % Monocytes % Eosinophils % Basophils % Nucleated RBC % Absolute Neutrophils Absolute Lymphocytes Absolute Monocytes Absolute Eosinophils Absolute Basophils VBG pH VBG pCO2 VBG pO2 VBG HCO3 VBG Total CO2 VBG O2 Saturation VBG Base Excess VBG Lactate Sodium Potassium Chloride Carbon Dioxide Anion Gap BUN Creatinine Estimated GFR/1.73 m2 Glucose Calcium Phosphorus Magnesium Total Bilirubin AST ALT Alkaline Phosphatase Troponin I NT-Pro-B Natriuret Pep Total Protein Albumin Procalcitonin Specimen Type Cancelled COVID-19 Source SARS-CoV-2 (PCR) Influenza Type A RNA Cancelled Influenza Type B RNA Cancelled RSV RNA Qual (PCR) Cancelled
[2021-01-17] MEDS: Atorvastatin 40 MG TAB 80 MG PO ×2 (00:42→20:33)
[2021-01-17 01:07] LABS: PTT Activated 22.5 sec (21.0-27.5)
[2021-01-17] MEDS: HYDROcodone 10/Acetaminophen 325 TAB PO ×3 (04:25→18:25)
[2021-01-17] MEDS: Acetaminophen 325 MG TAB PO ×2 (04:56→16:55)
[2021-01-17] MEDS: FLUoxetine 20 MG CAP 40 MG PO (07:53)
[2021-01-17] MEDS: predniSONE 20 MG TAB 40 MG PO (07:53)
[2021-01-17] MEDS: Metoprolol CR 50 MG TABCR PO (07:53)
[2021-01-17] MEDS: Sucralfate 1 GM TAB PO ×2 (07:53→20:33)
[2021-01-17] MEDS: Aspirin E.C. 81 MG TABEC PO (07:53)
--- NOTE | 2021-01-17 08:00 | RT.EKG_ITS ---
APPROVED REPORT Exam: Resting ECG Reason for Exam: NSTEMI Patient Location: I HR:103 bpm ECG Measurements Heart Rate 103 AXIS IA 175 P 81 QRSd 79 QRS -48 QT 413 T 225 QTc 542 Conclusion Sinus tachycardia...rate> 99 Inferior infarct, age indeterminate...Q>35mS, T neg, II III aVF Anterior infarct, age indeterminate...Q >35mS, T neg, in V2-V5 Abnormal T, suspect prox. LAD occlu. or CVA...Symmetric T<-0.5mV, V2-V4 Prolonged QT interval...QTc >500mS Diffuse ST-T abnormalities suggest ischemia
[2021-01-17 08:14] LABS: Abs Immature Grans 0.06 10^3/uL (0.0-0.06); Absolute Basophil Count 0.03 10^3/uL (0.0-0.2); Basophils % 0.2; Eosinophils % 0.1; HCT 42.6 % (36.0-46.0); Immature Grans % 0.4; Lymphocytes % 17.5; MCH 29.2 pg (27.0-33.0); MCHC 32.9 % (32.0-36.0); MCV 88.8 fL (80-95); MPV 9.3 fL (8.0-11.0); Monocytes % 9.3; Neutrophils % 72.5; Nucleated RBC 0 %; Platelet Count 340 10^3/uL (130-400); RDW 15.4 % (11.7-14.6); RDW-SD 50.7 fL; WBC 15.99 10^3/uL (4.4-10.8)
[2021-01-17 08:17] LABS: Absolute Eosinophil Count 0.02 10^3/uL (0.0-0.7); Absolute Monocyte Count 1.49 10^3/uL (0.1-0.8); Absolute Neutrophil Count 11.59 10^3/uL (1.2-6.7)
[2021-01-17] MEDS: Albuterol/Ipratropium 3 ML UPD VIAL UPD ×4 (08:22→20:33)
[2021-01-17] MEDS: Tiotropium/Olodaterol 10 PUFF INHALER 2 PUFF IH (08:22)
[2021-01-17 08:23] LABS: Anion Gap 9.6 mmol/L (3-11); BUN 16 mg/dL (7-18); CO2 24.4 mmol/L (21.0-32.0); CREATININE 0.9 mg/dL (0.55-1.02); Calcium 9.1 mg/dL (8.5-10.1); Chloride 102 mmol/L (98-107); Glucose 101 mg/dL (74-106); Potassium 4.2 mmol/L (3.5-5.1); Sodium 136 mmol/L (136-145)
[2021-01-17 08:32] LABS: Calculated LDL 105 mg/dL (<100); Cholesterol 191 mg/dL (<200); HDL Cholesterol 64 mg/dL (40-60); PTT Activated 25.4 sec (21.0-27.5); Triglyceride 110 mg/dL (<150)
[2021-01-17 08:33] LABS: Troponin I 0.42 ng/mL (<0.06)
[2021-01-17 09:02] LABS: Hemoglobin A1C 5.9 % (<5.7)
--- NOTE | 2021-01-17 09:13 | W.PULMPROG ---
General Date Of Service Date of service: 01/17/21 Time of Service: 08:15 Reason for Consult: COPD Exacerbation Subjective Note Note: Den looks much better this morning when compared to yesterday. She is breathing comfortably and has been stable on 2L nasal cannula. She feels as though he breathing is doing better than when she first came in. Her troponin did elevate slightly last night which prompted a call to [facility]. They did recommend a heparin infusion and an echocardiogram to be completed today. She denies any chest pain. Exam Const General: no acute distress Nutritional Appearance: cachectic [facility] Head: normocephalic Ears: external ears normal and no periauricular adenopathy General nose exam: nasal mucous membranes and turbinates normal Face and sinus: sinuses nontender Mouth: oropharynx normal and moist mucous membranes Teeth and gingiva: dentition normal Eyes General: appearance normal, both eyes and all related structures Pupils: PERRL Neck Neck: normal visual inspection and no lymphadenopathy Chest Chest: normal inspection of the chest Resp Effort & Inspection: normal respiratory effort Auscultation: clear to auscultation bilaterally, no rales, no rhonchi and no wheezes Cardio Rate: regular rate Rhythm: regular rhythm Heart Sounds: S1 normal, S2 normal and no murmurs Pulses: radial pulses present bilaterally GI Inspection: normal to inspection Palpation: soft Skin General skin exam: no rashes or lesions noted Neuro General: patient alert, patient awake and patient oriented x3 Extrem General: no clubbing, cyanosis or edema Psych Mental Status: mental status grossly normal Affect: normal affect Attitude: cooperative Objective Last Vital Signs Temp 37.1 C 01/17/21 07:58 Pulse 92 H 01/17/21 08:41 Resp 20 01/17/21 07:58 BP 143/85 H 01/17/21 07:58 Pulse Ox 95 01/17/21 07:58 Laboratory Results - last 24 hr 01/16/21 01/16/21 01/16/21 09:53 10:05 10:05 WBC 16.28 H RBC 5.03 Hgb 14.8 Hct 44.5 MCV 88.5 MCH 29.4 MCHC 33.3 RDW 15.2 H Plt Count 373 MPV 9.1 Immature Gran % 0.3 Neutrophils % 85.0 Lymphocytes % 8.9 Monocytes % 5.5 Eosinophils % 0.1 Basophils % 0.2 Nucleated RBC % 0 Absolute Neutrophils 13.84 H Absolute Lymphocytes 1.45 Absolute Monocytes 0.90 H Absolute Eosinophils 0.02 Absolute Basophils 0.03 APTT VBG pH VBG pCO2 VBG pO2 VBG HCO3 VBG Total CO2 VBG O2 Saturation VBG Base Excess VBG Lactate Sodium 133 L Potassium 4.4 Chloride 100 Carbon Dioxide 25.6 Anion Gap 7.4 BUN 26 H Creatinine 0.6 Estimated GFR/1.73 m2 >= 60.00 Glucose 120 H Hemoglobin A1c Calcium 9.2 Phosphorus 3.1 Magnesium 2.2 Total Bilirubin 0.4 AST 27 ALT 10 L Alkaline Phosphatase 66 Troponin I 0.32 H* NT-Pro-B Natriuret Pep Total Protein 8.1 Albumin 3.6 Triglycerides Total Cholesterol LDL Cholesterol, Calc HDL Cholesterol Procalcitonin Specimen Type COVID-19 Source Nasal/Nares SARS-CoV-2 (PCR) Negative Influenza Type A RNA Influenza Type B RNA RSV RNA Qual (PCR) 01/16/21 01/16/21 01/16/21 10:05 11:50 13:48 WBC RBC Hgb Hct MCV MCH MCHC RDW Plt Count MPV Immature Gran % Neutrophils % Lymphocytes % Monocytes % Eosinophils % Basophils % Nucleated RBC % Absolute Neutrophils Absolute Lymphocytes Absolute Monocytes Absolute Eosinophils Absolute Basophils APTT VBG pH 7.38 VBG pCO2 38 L VBG pO2 22 VBG HCO3 22 L VBG Total CO2 20 L VBG O2 Saturation 35 VBG Base Excess -3 L VBG Lactate 1.6 H Sodium Potassium Chloride Carbon Dioxide Anion Gap BUN Creatinine Estimated GFR/1.73 m2 Glucose Hemoglobin A1c Calcium Phosphorus Magnesium Total Bilirubin AST ALT Alkaline Phosphatase Troponin I 0.39 H* NT-Pro-B Natriuret Pep Total Protein Albumin Triglycerides Total Cholesterol LDL Cholesterol, Calc HDL Cholesterol Procalcitonin < 0.1 Specimen Type COVID-19 Source SARS-CoV-2 (PCR) Influenza Type A RNA Influenza Type B RNA RSV RNA Qual (PCR) 01/16/21 01/16/21 01/16/21 17:28 22:05 22:05 WBC RBC Hgb Hct MCV MCH MCHC RDW Plt Count MPV Immature Gran % Neutrophils % Lymphocytes % Monocytes % Eosinophils % Basophils % Nucleated RBC % Absolute Neutrophils Absolute Lymphocytes Absolute Monocytes Absolute Eosinophils Absolute Basophils APTT VBG pH VBG pCO2 VBG pO2 VBG HCO3 VBG Total CO2 VBG O2 Saturation VBG Base Excess VBG Lactate Sodium Potassium Chloride Carbon Dioxide Anion Gap BUN Creatinine Estimated GFR/1.73 m2 Glucose Hemoglobin A1c Calcium Phosphorus Magnesium Total Bilirubin AST ALT Alkaline Phosphatase Troponin I 0.59 H* 0.68 H* NT-Pro-B Natriuret Pep 75760 H Total Protein Albumin Triglycerides Total Cholesterol LDL Cholesterol, Calc HDL Cholesterol Procalcitonin Specimen Type COVID-19 Source SARS-CoV-2 (PCR) Influenza Type A RNA Influenza Type B RNA RSV RNA Qual (PCR) 01/16/21 01/17/21 01/17/21 Unknown 00:50 08:00 WBC 15.99 H RBC 4.80 Hgb 14.0 Hct 42.6 MCV 88.8 MCH 29.2 MCHC 32.9 RDW 15.4 H Plt Count 340 MPV 9.3 Immature Gran % 0.4 Neutrophils % 72.5 Lymphocytes % 17.5 Monocytes % 9.3 Eosinophils % 0.1 Basophils % 0.2 Nucleated RBC % 0 Absolute Neutrophils 11.59 H Absolute Lymphocytes 2.80 Absolute Monocytes 1.49 H Absolute Eosinophils 0.02 Absolute Basophils 0.03 APTT 22.5 VBG pH VBG pCO2 VBG pO2 VBG HCO3 VBG Total CO2 VBG O2 Saturation VBG Base Excess VBG Lactate Sodium Potassium Chloride Carbon Dioxide Anion Gap BUN Creatinine Estimated GFR/1.73 m2 Glucose Hemoglobin A1c Calcium Phosphorus Magnesium Total Bilirubin AST ALT Alkaline Phosphatase Troponin I NT-Pro-B Natriuret Pep Total Protein Albumin Triglycerides Total Cholesterol LDL Cholesterol, Calc HDL Cholesterol Procalcitonin Specimen Type Cancelled COVID-19 Source SARS-CoV-2 (PCR) Influenza Type A RNA Cancelled Influenza Type B RNA Cancelled RSV RNA Qual (PCR) Cancelled 01/17/21 01/17/21 01/17/21 08:00 08:00 08:00 WBC RBC Hgb Hct MCV MCH MCHC RDW Plt Count MPV Immature Gran % Neutrophils % Lymphocytes % Monocytes % Eosinophils % Basophils % Nucleated RBC % Absolute Neutrophils Absolute Lymphocytes Absolute Monocytes Absolute Eosinophils Absolute Basophils APTT VBG pH VBG pCO2 VBG pO2 VBG HCO3 VBG Total CO2 VBG O2 Saturation VBG Base Excess VBG Lactate Sodium 136 Potassium 4.2 Chloride 102 Carbon Dioxide 24.4 Anion Gap 9.6 BUN 16 D Creatinine 0.9 Estimated GFR/1.73 m2 >= 60.00 Glucose 101 Hemoglobin A1c 5.9 H Calcium 9.1 Phosphorus Magnesium Total Bilirubin AST ALT Alkaline Phosphatase Troponin I 0.42 H* NT-Pro-B Natriuret Pep Total Protein Albumin Triglycerides 110 Total Cholesterol 191 LDL Cholesterol, Calc 105 H HDL Cholesterol 64 Procalcitonin Specimen Type COVID-19 Source SARS-CoV-2 (PCR) Influenza Type A RNA Influenza Type B RNA RSV RNA Qual (PCR) 01/17/21 08:00 WBC RBC Hgb Hct MCV MCH MCHC RDW Plt Count MPV Immature Gran % Neutrophils % Lymphocytes % Monocytes % Eosinophils % Basophils % Nucleated RBC % Absolute Neutrophils Absolute Lymphocytes Absolute Monocytes Absolute Eosinophils Absolute Basophils APTT 25.4 VBG pH VBG pCO2 VBG pO2 VBG HCO3 VBG Total CO2 VBG O2 Saturation VBG Base Excess VBG Lactate Sodium Potassium Chloride Carbon Dioxide Anion Gap BUN Creatinine Estimated GFR/1.73 m2 Glucose Hemoglobin A1c Calcium Phosphorus Magnesium Total Bilirubin AST ALT Alkaline Phosphatase Troponin I NT-Pro-B Natriuret Pep Total Protein Albumin Triglycerides Total Cholesterol LDL Cholesterol, Calc HDL Cholesterol Procalcitonin Specimen Type COVID-19 Source SARS-CoV-2 (PCR) Influenza Type A RNA Influenza Type B RNA RSV RNA Qual (PCR) Results Medications Medications: Active Medications Generic Name Dose Route Start Last Admin Trade Name Freq PRN Reason Stop Dose Admin Acetaminophen 0 mg 01/16/21 10:02 01/17/21 04:56 Acetaminophen 325 Mg Tab PO 650 mg Q4H PRN PRN Administration Hydrocodone Bitart/Acetaminophen 1 tab 01/16/21 16:46 01/17/21 04:25 Hydrocodone 10/Acetaminophen 325 Tab PO 1 tab Q6H PRN PRN Administration Pain Albuterol Sulfate 2.5 mg 01/16/21 10:02 01/17/21 00:12 Albuterol 2.5 Mg/3 Ml Inh Soln Vial UPD 2.5 mg Q2H PRN PRN Administration Albuterol Sulfate 2 puff 01/16/21 12:41 Albuterol Hfa 8 Gm 60 Puff Inh IH Q4H PRN PRN Albuterol/Ipratropium 3 ml 01/16/21 16:00 01/17/21 08:22 Albuterol/Ipratropium 3 Ml Upd Vial UPD 3 ml QID OZIEL Administration Aspirin 81 mg 01/17/21 08:30 01/17/21 07:53 Aspirin E.C. 81 Mg Tabec PO 81 mg DAILY OZIEL Administration Atorvastatin Calcium 80 mg 01/17/21 20:00 Atorvastatin 40 Mg Tab PO QPM OZIEL Carbidopa/Levodopa 1 tab 01/16/21 20:00 01/17/21 07:53 Carbidopa 25/Levodopa 250 Tab PO 1 tab BID OZIEL Administration Device 1 each 01/16/21 13:00 Inhaler, Assist Device MC DIRECTED OZIEL Dimethicone/Zinc Oxide 0 gm 01/16/21 09:56 Carlos Protect Cream 142 Gm Tube TP PRN PRN Fluoxetine HCl 40 mg 01/17/21 08:30 01/17/21 07:53 Fluoxetine 20 Mg Cap PO 40 mg DAILY OZIEL Administration Gabapentin 100 mg 01/16/21 22:00 01/16/21 21:22 Gabapentin 100 Mg Cap PO 100 mg HS OZIEL Administration Levofloxacin 750 mg in 150 mls @ 100 mls/hr 01/18/21 08:00 Levaquin Premixed Bag IVPB Q48H OZIEL Protocol Heparin Sodium (Porcine) 25,000 units in 250 mls @ 0 mls/hr 01/17/21 00:30 01/17/21 01:47 IV 5 mls/hr INFUSION OZIEL Administration Protocol Per Protocol Lorazepam 0.5 mg 01/16/21 17:40 Lorazepam 2 Mg/Ml Vial IM Q4H PRN PRN Metoprolol Succinate 50 mg 01/17/21 08:30 01/17/21 07:53 Metoprolol Cr 50 Mg Tabcr PO 50 mg DAILY OZIEL Administration Morphine Sulfate 15 mg 01/16/21 15:15 01/17/21 07:53 Morphine C.R. 15 Mg Tabcr PO 15 mg BID OZIEL Administration Nicotine 14 mg 01/16/21 10:02 Nicotine 14 Mg/24 Hr Patch TD DAILY PRN PRN Polyethylene Glycol 17 gm 01/16/21 10:02 Polyethylene Glycol 3350 17 Gm Packet PO DAILY PRN PRN Constipation Prednisone 40 mg 01/17/21 08:30 01/17/21 07:53 Prednisone 20 Mg Tab PO 40 mg DAILY OZIEL Administration Ropinirole HCl 0.5 mg 01/16/21 22:00 01/16/21 21:23 Ropinirole 0.5 Mg Tab PO 0.5 mg HS OZIEL Administration Sucralfate 1 gm 01/16/21 20:00 01/17/21 07:53 Sucralfate 1 Gm Tab PO 1 gm BID OZIEL Administration Tiotropium [place]/Olodaterol 2 puff 01/17/21 08:30 01/17/21 08:22 Tiotropium/Olodaterol 10 Puff Inhaler IH 2 puffs DAILY OZIEL Administration Allergies Sulfa (Sulfonamide Antibiotics) Allergy (Severe, Unverified 01/11/21 16:24) Anaphylaxsis meperidine HCl [From Demerol] Allergy (Intermediate, Unverified 01/11/21 16:24) Contraindicated, seizures phenytoin sodium [From Dilantin] Allergy (Intermediate, Unverified 01/11/21 16:24) Contraindicated, seizures phenytoin sodium extended [From Dilantin] Allergy (Intermediate, Unverified 01/11/21 16:24) Contraindicated, seizures amoxicillin Allergy (Verified 01/11/21 16:24) diazepam [From Valium] Allergy (Verified 01/11/21 16:24) hydromorphone [From Dilaudid] Allergy (Verified 01/11/21 16:24) midazolam HCl [From Versed] Adverse Reaction (Intermediate, Unverified 01/11/21 16:24) Psychosis Labs Result Diagrams: 01/17/21 08:00 01/17/21 08:00 Labs: 01/16/21 12:57 Nasopharynx Influenza Types A,B Antigen - Final 01/16/21 11:03 Blood Blood Culture - Pending 01/16/21 10:55 Blood Blood Culture - Pending Laboratory Tests Range/Units 01/16/21 01/16/21 01/16/21 09:53 10:05 10:05 WBC (4.4-10.8) 10^3/uL 16.28 H RBC (3.93-5.22) 10^6/uL 5.03 Hgb (11.2-15.7) g/dL 14.8 Hct (36.0-46.0) % 44.5 MCV (80-95) fL 88.5 MCH (27.0-33.0) pg 29.4 MCHC (32.0-36.0) % 33.3 RDW (11.7-14.6) % 15.2 H Plt Count (130-400) 10^3/uL 373 MPV (8.0-11.0) fL 9.1 Immature Gran % 0.3 Neutrophils % 85.0 Lymphocytes % 8.9 Monocytes % 5.5 Eosinophils % 0.1 Basophils % 0.2 Nucleated RBC % % 0 Absolute Neutrophils (1.2-6.7) 10^3/uL 13.84 H Absolute Lymphocytes (1.2-3.4) 10^3/uL 1.45 Absolute Monocytes (0.1-0.8) 10^3/uL 0.90 H Absolute Eosinophils (0.0-0.7) 10^3/uL 0.02 Absolute Basophils (0.0-0.2) 10^3/uL 0.03 APTT (21.0-27.5) sec VBG pH (7.31-7.41) VBG pCO2 (41-51) mmHg VBG pO2 mmHg VBG HCO3 (23-28) mmol/L VBG Total CO2 (24-29) mmol/L VBG O2 Saturation % VBG Base Excess (-2-3) mmol/L VBG Lactate (0.6-1.4) mmol/L Sodium (136-145) mmol/L 133 L Potassium (3.5-5.1) mmol/L 4.4 Chloride (98-107) mmol/L 100 Carbon Dioxide (21.0-32.0) mmol/L 25.6 Anion Gap (3-11) mmol/L 7.4 BUN (7-18) mg/dL 26 H Creatinine (0.55-1.02) mg/dL 0.6 Estimated GFR/1.73 m2 (mL/min/1.73m2) >= 60.00 Glucose (74-106) mg/dL 120 H Hemoglobin A1c (<5.7) % Calcium (8.5-10.1) mg/dL 9.2 Phosphorus (2.6-4.7) mg/dL 3.1 Magnesium (1.8-2.4) mg/dL 2.2 Total Bilirubin (0.2-1.0) mg/dL 0.4 AST (15-37) U/L 27 ALT (14-59) U/L 10 L Alkaline Phosphatase (46-116) U/L 66 Troponin I (<0.06) ng/mL 0.32 H* NT-Pro-B Natriuret Pep (<300) pg/mL Total Protein (6.4-8.2) g/dL 8.1 Albumin (3.4-5.0) g/dL 3.6 Triglycerides (<150) mg/dL Total Cholesterol (<200) mg/dL LDL Cholesterol, Calc (<100) mg/dL HDL Cholesterol (40-60) mg/dL Procalcitonin ng/mL Specimen Type COVID-19 Source Nasal/Nares SARS-CoV-2 (PCR) (Negative) Negative Influenza Type A RNA Influenza Type B RNA RSV RNA Qual (PCR) Range/Units 01/16/21 01/16/21 01/16/21 10:05 11:50 13:48 WBC (4.4-10.8) 10^3/uL RBC (3.93-5.22) 10^6/uL Hgb (11.2-15.7) g/dL Hct (36.0-46.0) % MCV (80-95) fL MCH (27.0-33.0) pg MCHC (32.0-36.0) % RDW (11.7-14.6) % Plt Count (130-400) 10^3/uL MPV (8.0-11.0) fL Immature Gran % Neutrophils % Lymphocytes % Monocytes % Eosinophils % Basophils % Nucleated RBC % % Absolute Neutrophils (1.2-6.7) 10^3/uL Absolute Lymphocytes (1.2-3.4) 10^3/uL Absolute Monocytes (0.1-0.8) 10^3/uL Absolute Eosinophils (0.0-0.7) 10^3/uL Absolute Basophils (0.0-0.2) 10^3/uL APTT (21.0-27.5) sec VBG pH (7.31-7.41) 7.38 VBG pCO2 (41-51) mmHg 38 L VBG pO2 mmHg 22 VBG HCO3 (23-28) mmol/L 22 L VBG Total CO2 (24-29) mmol/L 20 L VBG O2 Saturation % 35 VBG Base Excess (-2-3) mmol/L -3 L VBG Lactate (0.6-1.4) mmol/L 1.6 H Sodium (136-145) mmol/L Potassium (3.5-5.1) mmol/L Chloride (98-107) mmol/L Carbon Dioxide (21.0-32.0) mmol/L Anion Gap (3-11) mmol/L BUN (7-18) mg/dL Creatinine (0.55-1.02) mg/dL Estimated GFR/1.73 m2 (mL/min/1.73m2) Glucose (74-106) mg/dL Hemoglobin A1c (<5.7) % Calcium (8.5-10.1) mg/dL Phosphorus (2.6-4.7) mg/dL Magnesium (1.8-2.4) mg/dL Total Bilirubin (0.2-1.0) mg/dL AST (15-37) U/L ALT (14-59) U/L Alkaline Phosphatase (46-116) U/L Troponin I (<0.06) ng/mL 0.39 H* NT-Pro-B Natriuret Pep (<300) pg/mL Total Protein (6.4-8.2) g/dL Albumin (3.4-5.0) g/dL Triglycerides (<150) mg/dL Total Cholesterol (<200) mg/dL LDL Cholesterol, Calc (<100) mg/dL HDL Cholesterol (40-60) mg/dL Procalcitonin ng/mL < 0.1 Specimen Type COVID-19 Source SARS-CoV-2 (PCR) (Negative) Influenza Type A RNA Influenza Type B RNA RSV RNA Qual (PCR) Range/Units 01/16/21 01/16/21 01/16/21 17:28 22:05 22:05 WBC (4.4-10.8) 10^3/uL RBC (3.93-5.22) 10^6/uL Hgb (11.2-15.7) g/dL Hct (36.0-46.0) % MCV (80-95) fL MCH (27.0-33.0) pg MCHC (32.0-36.0) % RDW (11.7-14.6) % Plt Count (130-400) 10^3/uL MPV (8.0-11.0) fL Immature Gran % Neutrophils % Lymphocytes % Monocytes % Eosinophils % Basophils % Nucleated RBC % % Absolute Neutrophils (1.2-6.7) 10^3/uL Absolute Lymphocytes (1.2-3.4) 10^3/uL Absolute Monocytes (0.1-0.8) 10^3/uL Absolute Eosinophils (0.0-0.7) 10^3/uL Absolute Basophils (0.0-0.2) 10^3/uL APTT (21.0-27.5) sec VBG pH (7.31-7.41) VBG pCO2 (41-51) mmHg VBG pO2 mmHg VBG HCO3 (23-28) mmol/L VBG Total CO2 (24-29) mmol/L VBG O2 Saturation % VBG Base Excess (-2-3) mmol/L VBG Lactate (0.6-1.4) mmol/L Sodium (136-145) mmol/L Potassium (3.5-5.1) mmol/L Chloride (98-107) mmol/L Carbon Dioxide (21.0-32.0) mmol/L Anion Gap (3-11) mmol/L BUN (7-18) mg/dL Creatinine (0.55-1.02) mg/dL Estimated GFR/1.73 m2 (mL/min/1.73m2) Glucose (74-106) mg/dL Hemoglobin A1c (<5.7) % Calcium (8.5-10.1) mg/dL Phosphorus (2.6-4.7) mg/dL Magnesium (1.8-2.4) mg/dL Total Bilirubin (0.2-1.0) mg/dL AST (15-37) U/L ALT (14-59) U/L Alkaline Phosphatase (46-116) U/L Troponin I (<0.06) ng/mL 0.59 H* 0.68 H* NT-Pro-B Natriuret Pep (<300) pg/mL 87735 H Total Protein (6.4-8.2) g/dL Albumin (3.4-5.0) g/dL Triglycerides (<150) mg/dL Total Cholesterol (<200) mg/dL LDL Cholesterol, Calc (<100) mg/dL HDL Cholesterol (40-60) mg/dL Procalcitonin ng/mL Specimen Type COVID-19 Source SARS-CoV-2 (PCR) (Negative) Influenza Type A RNA Influenza Type B RNA RSV RNA Qual (PCR) Range/Units 01/16/21 01/17/21 01/17/21 Unknown 00:50 08:00 WBC (4.4-10.8) 10^3/uL 15.99 H RBC (3.93-5.22) 10^6/uL 4.80 Hgb (11.2-15.7) g/dL 14.0 Hct (36.0-46.0) % 42.6 MCV (80-95) fL 88.8 MCH (27.0-33.0) pg 29.2 MCHC (32.0-36.0) % 32.9 RDW (11.7-14.6) % 15.4 H Plt Count (130-400) 10^3/uL 340 MPV (8.0-11.0) fL 9.3 Immature Gran % 0.4 Neutrophils % 72.5 Lymphocytes % 17.5 Monocytes % 9.3 Eosinophils % 0.1 Basophils % 0.2 Nucleated RBC % % 0 Absolute Neutrophils (1.2-6.7) 10^3/uL 11.59 H Absolute Lymphocytes (1.2-3.4) 10^3/uL 2.80 Absolute Monocytes (0.1-0.8) 10^3/uL 1.49 H Absolute Eosinophils (0.0-0.7) 10^3/uL 0.02 Absolute Basophils (0.0-0.2) 10^3/uL 0.03 APTT (21.0-27.5) sec 22.5 VBG pH (7.31-7.41) VBG pCO2 (41-51) mmHg VBG pO2 mmHg VBG HCO3 (23-28) mmol/L VBG Total CO2 (24-29) mmol/L VBG O2 Saturation % VBG Base Excess (-2-3) mmol/L VBG Lactate (0.6-1.4) mmol/L Sodium (136-145) mmol/L Potassium (3.5-5.1) mmol/L Chloride (98-107) mmol/L Carbon Dioxide (21.0-32.0) mmol/L Anion Gap (3-11) mmol/L BUN (7-18) mg/dL Creatinine (0.55-1.02) mg/dL Estimated GFR/1.73 m2 (mL/min/1.73m2) Glucose (74-106) mg/dL Hemoglobin A1c (<5.7) % Calcium (8.5-10.1) mg/dL Phosphorus (2.6-4.7) mg/dL Magnesium (1.8-2.4) mg/dL Total Bilirubin (0.2-1.0) mg/dL AST (15-37) U/L ALT (14-59) U/L Alkaline Phosphatase (46-116) U/L Troponin I (<0.06) ng/mL NT-Pro-B Natriuret Pep (<300) pg/mL Total Protein (6.4-8.2) g/dL Albumin (3.4-5.0) g/dL Triglycerides (<150) mg/dL Total Cholesterol (<200) mg/dL LDL Cholesterol, Calc (<100) mg/dL HDL Cholesterol (40-60) mg/dL Procalcitonin ng/mL Specimen Type Cancelled COVID-19 Source SARS-CoV-2 (PCR) (Negative) Influenza Type A RNA Cancelled Influenza Type B RNA Cancelled RSV RNA Qual (PCR) Cancelled Range/Units 01/17/21 01/17/21 01/17/21 08:00 08:00 08:00 WBC (4.4-10.8) 10^3/uL RBC (3.93-5.22) 10^6/uL Hgb (11.2-15.7) g/dL Hct (36.0-46.0) % MCV (80-95) fL MCH (27.0-33.0) pg MCHC (32.0-36.0) % RDW (11.7-14.6) % Plt Count (130-400) 10^3/uL MPV (8.0-11.0) fL Immature Gran % Neutrophils % Lymphocytes % Monocytes % Eosinophils % Basophils % Nucleated RBC % % Absolute Neutrophils (1.2-6.7) 10^3/uL Absolute Lymphocytes (1.2-3.4) 10^3/uL Absolute Monocytes (0.1-0.8) 10^3/uL Absolute Eosinophils (0.0-0.7) 10^3/uL Absolute Basophils (0.0-0.2) 10^3/uL APTT (21.0-27.5) sec VBG pH (7.31-7.41) VBG pCO2 (41-51) mmHg VBG pO2 mmHg VBG HCO3 (23-28) mmol/L VBG Total CO2 (24-29) mmol/L VBG O2 Saturation % VBG Base Excess (-2-3) mmol/L VBG Lactate (0.6-1.4) mmol/L Sodium (136-145) mmol/L 136 Potassium (3.5-5.1) mmol/L 4.2 Chloride (98-107) mmol/L 102 Carbon Dioxide (21.0-32.0) mmol/L 24.4 Anion Gap (3-11) mmol/L 9.6 BUN (7-18) mg/dL 16 D Creatinine (0.55-1.02) mg/dL 0.9 Estimated GFR/1.73 m2 (mL/min/1.73m2) >= 60.00 Glucose (74-106) mg/dL 101 Hemoglobin A1c (<5.7) % 5.9 H Calcium (8.5-10.1) mg/dL 9.1 Phosphorus (2.6-4.7) mg/dL Magnesium (1.8-2.4) mg/dL Total Bilirubin (0.2-1.0) mg/dL AST (15-37) U/L ALT (14-59) U/L Alkaline Phosphatase (46-116) U/L Troponin I (<0.06) ng/mL 0.42 H* NT-Pro-B Natriuret Pep (<300) pg/mL Total Protein (6.4-8.2) g/dL Albumin (3.4-5.0) g/dL Triglycerides (<150) mg/dL 110 Total Cholesterol (<200) mg/dL 191 LDL Cholesterol, Calc (<100) mg/dL 105 H HDL Cholesterol (40-60) mg/dL 64 Procalcitonin ng/mL Specimen Type COVID-19 Source SARS-CoV-2 (PCR) (Negative) Influenza Type A RNA Influenza Type B RNA RSV RNA Qual (PCR) Range/Units 01/17/21 08:00 WBC (4.4-10.8) 10^3/uL RBC (3.93-5.22) 10^6/uL Hgb (11.2-15.7) g/dL Hct (36.0-46.0) % MCV (80-95) fL MCH (27.0-33.0) pg MCHC (32.0-36.0) % RDW (11.7-14.6) % Plt Count (130-400) 10^3/uL MPV (8.0-11.0) fL Immature Gran % Neutrophils % Lymphocytes % Monocytes % Eosinophils % Basophils % Nucleated RBC % % Absolute Neutrophils (1.2-6.7) 10^3/uL Absolute Lymphocytes (1.2-3.4) 10^3/uL Absolute Monocytes (0.1-0.8) 10^3/uL Absolute Eosinophils (0.0-0.7) 10^3/uL Absolute Basophils (0.0-0.2) 10^3/uL APTT (21.0-27.5) sec 25.4 VBG pH (7.31-7.41) VBG pCO2 (41-51) mmHg VBG pO2 mmHg VBG HCO3 (23-28) mmol/L VBG Total CO2 (24-29) mmol/L VBG O2 Saturation % VBG Base Excess (-2-3) mmol/L VBG Lactate (0.6-1.4) mmol/L Sodium (136-145) mmol/L Potassium (3.5-5.1) mmol/L Chloride (98-107) mmol/L Carbon Dioxide (21.0-32.0) mmol/L Anion Gap (3-11) mmol/L BUN (7-18) mg/dL Creatinine (0.55-1.02) mg/dL Estimated GFR/1.73 m2 (mL/min/1.73m2) Glucose (74-106) mg/dL Hemoglobin A1c (<5.7) % Calcium (8.5-10.1) mg/dL Phosphorus (2.6-4.7) mg/dL Magnesium (1.8-2.4) mg/dL Total Bilirubin (0.2-1.0) mg/dL AST (15-37) U/L ALT (14-59) U/L Alkaline Phosphatase (46-116) U/L Troponin I (<0.06) ng/mL NT-Pro-B Natriuret Pep (<300) pg/mL Total Protein (6.4-8.2) g/dL Albumin (3.4-5.0) g/dL Triglycerides (<150) mg/dL Total Cholesterol (<200) mg/dL LDL Cholesterol, Calc (<100) mg/dL HDL Cholesterol (40-60) mg/dL Procalcitonin ng/mL Specimen Type COVID-19 Source SARS-CoV-2 (PCR) (Negative) Influenza Type A RNA Influenza Type B RNA RSV RNA Qual (PCR) Assessment and Plan Assessment and plan (1) Respiratory failure with hypoxia: Status: Acute (2) COPD with acute exacerbation: Status: Acute (3) Multifocal pneumonia: Status: Acute (4) Current smoker: Status: Acute Assessment and plan: This is a 75 yo female with over 120 pack year smoking history who presents after failure of outpatient management of a COPD exacerbation. She is found to have multilobar GGO that likely represent an atypical pneumonia (with a negative procal). I recommend trying to isolate the organism, particularly given her outpatient azithromycin failure. Her flu/RSV was negative. The urine antigens are still pending. She also has untreated COPD and continues to smoke (up until 5 days ago). She should be on maintenance therapy for this. Her VBG did not show any signs of CO2 retention. She does have a troponin elevation that I suspect to be related to hypoxemia and not ACS, however given the slight elevation she is being worked up from an ACS perspective with an echo today and guidance from [facility]. From a respiratory standpoint she does seem much improved from yesterday. Hypoxic respiratory failure - supplemental oxygen for sats 88-92% - Incentive spirometry and VibraPEP - she will need an ambulatory pulse ox prior to discharge COPD Exacerbation - continue Stiolto - please send Rx for this to ensure she has enough for a couple months until she sees me in clinic - Duoneb QID - would discharge with nebulizer machine and Duonebs - albuterol neb q2hr prn - Proair q4hr prn - would discharge with albuterol inhaler - Prednisone 40mg for 5 days, 30mg for 4 days, 20mg for 4 days, 10mg for 3 days, 5mg for 3 days - I have arranged follow up for her in my clinic Current smoking - agree with nicotine patches - smoking cessation Multilobar Pneumonia - agree with Levaquin - urine antigens for Strep pneumonia and Legionella antigens pending - flu and RSV swab negative - blood cultures obtained in ED - sputum culture if able
--- NOTE | 2021-01-17 09:57 | W.NUTCONSULT ---
Date of service: 01/17/21 Time of Service: 09:57 Nutritional Consult ASSESSMENT: 75 yo female admitted with COPD, respiratory failure, PNA, smoker, with narcotic withdrawal. 5'4 80 lbs BMI 13.6 Cachexic. Unable to meet with patient today, however, after chart review, low weight has been stable/chronic over past couple of years. Cachexic. Estimated Needs: 900-1200 kcal, 35-45 g protein, 1200 ml fluid. PO intake meeting approx. 50% of needs. NUTRITIONAL DIAGNOSIS: Malnutrition as evidenced by low BMI, cachexic appearance. At high nutritional risk INTERVENTION: Pt at high nutritional risk as with depleted viseral stores and most likely with compromised immune function. Recommend supplementing with Vit D- 2000 IU daily and provide ensure BID. MONITORING AND EVALUATION: Will continue to follow. Time Spent in Nutritional Counseling and Treatment: 0
--- NOTE | 2021-01-17 15:27 | W.PM.PROGNOT ---
Date of Service Date of service: 01/17/21 Time of Service: 15:28 Assessment and Plan Assessment and plan (1) Respiratory failure with hypoxia: Status: Acute Assessment and plan: Secondary to COPD exacerbation and PNA She is now on no supplemental O2. Pulmonary following. (2) COPD with acute exacerbation: Status: Acute Assessment and plan: Cont Stiolto Cont Duonebs and prn albuterol. Prednisone 40mg po daily; IV solumedrol 125mg given in ED. Acapella and IS. (3) Multifocal pneumonia: Status: Acute Assessment and plan: Flu A and B negative. Levaquin 750 mg IV Q48H. Urine strep pneumo and Legionella antigens pending. Sputum culture ordered but she hasn't expectorated a sample. Blood cultures negative to date. (4) Current smoker: Status: Acute Assessment and plan: Nicoderm patch (5) Hypertension: Status: Acute Assessment and plan: Controlled. Cont Metoprolol. Monitor. (6) Chronic pain: Status: Acute Assessment and plan: Now controlled / at baseline. Unclear location but she states pain is in most joints / allover. Cont MS Contin 15mg tabs BID; home med list states it is taken Q8H prn. She endorses taking it 2x day most often. Cont Percocet 10mg [id number] prn. She was given a 4mg dose of morphine IV in the ED and 6 mg IM once admitted (IV was pulled out by pt). Cont Neurontin (7) Temporal lobe epilepsy: Assessment and plan: Not on seizure medication other than Neurotin which is presumably for pain. (8) Hx of drug withdrawal syndrome: Assessment and plan: Cont home narcotics and monitor closely for adverse effects / somnolence. (9) Cachexia: Assessment and plan: BMI of 14. Failure to thrive. Once she is more calm and conversant will discuss supplementation. Nutrition consulted. (10) NSTEMI (non-ST elevated myocardial infarction): Status: Acute Assessment and plan: Due to demand secondary to PNA and COPD exacerbation. Troponin peaked at 0.68 then decreased to 0.42 T-wave inversions; same as on EKGs at [facility] in 2010. Cardiology at [facility] discussed case last night and again today. Echocardiogram; EF of 45%. Segmental left ventricular wall motion abnormalities with akinesis of the apical cap, otherwise diffuse hypokinesis with preserved systolic functiononly of the basal inferolateral wall segment. Cont ASA and BB. No intervention indicated at this time. Subjective Subjective Patient reports: no new complaints, tolerating a regular diet and afebrile; denies nausea, vomiting and shortness of breath Interval history since last seen: She states she feels worn out but her breathing is much better. No CP/palpitations. Exam Const General: no acute distress and frail appearing Nutritional Appearance: cachectic [facility] Head: normocephalic and atraumatic Eyes General: appearance normal, both eyes and all related structures Sclera: sclerae normal Resp Effort & Inspection: normal respiratory effort Auscultation: clear to auscultation bilaterally Cardio Rate: regular rate Rhythm: regular rhythm Heart Sounds: S1 normal and S2 normal GI Palpation: soft and nontender Neuro General: no focal motor deficits Gait: normal gait Extrem General: no pedal edema and no calf tenderness Objective Last Vital Signs Temp 37.1 C 01/17/21 10:59 Pulse 90 01/17/21 12:25 Resp 20 01/17/21 10:59 BP 113/75 01/17/21 10:59 Pulse Ox 95 01/17/21 11:31 Laboratory Results - last 24 hr 01/16/21 01/16/21 01/16/21 17:28 22:05 22:05 WBC RBC Hgb Hct MCV MCH MCHC RDW Plt Count MPV Immature Gran % Neutrophils % Lymphocytes % Monocytes % Eosinophils % Basophils % Nucleated RBC % Absolute Neutrophils Absolute Lymphocytes Absolute Monocytes Absolute Eosinophils Absolute Basophils APTT Sodium Potassium Chloride Carbon Dioxide Anion Gap BUN Creatinine Estimated GFR/1.73 m2 Glucose Hemoglobin A1c Calcium Magnesium Troponin I 0.59 H* 0.68 H* NT-Pro-B Natriuret Pep 15213 H Triglycerides Total Cholesterol LDL Cholesterol, Calc HDL Cholesterol 01/17/21 01/17/21 01/17/21 00:50 08:00 08:00 WBC 15.99 H RBC 4.80 Hgb 14.0 Hct 42.6 MCV 88.8 MCH 29.2 MCHC 32.9 RDW 15.4 H Plt Count 340 MPV 9.3 Immature Gran % 0.4 Neutrophils % 72.5 Lymphocytes % 17.5 Monocytes % 9.3 Eosinophils % 0.1 Basophils % 0.2 Nucleated RBC % 0 Absolute Neutrophils 11.59 H Absolute Lymphocytes 2.80 Absolute Monocytes 1.49 H Absolute Eosinophils 0.02 Absolute Basophils 0.03 APTT 22.5 Sodium Potassium Chloride Carbon Dioxide Anion Gap BUN Creatinine Estimated GFR/1.73 m2 Glucose Hemoglobin A1c Calcium Magnesium 2.0 Troponin I NT-Pro-B Natriuret Pep Triglycerides Total Cholesterol LDL Cholesterol, Calc HDL Cholesterol 01/17/21 01/17/21 01/17/21 08:00 08:00 08:00 WBC RBC Hgb Hct MCV MCH MCHC RDW Plt Count MPV Immature Gran % Neutrophils % Lymphocytes % Monocytes % Eosinophils % Basophils % Nucleated RBC % Absolute Neutrophils Absolute Lymphocytes Absolute Monocytes Absolute Eosinophils Absolute Basophils APTT Sodium 136 Potassium 4.2 Chloride 102 Carbon Dioxide 24.4 Anion Gap 9.6 BUN 16 D Creatinine 0.9 Estimated GFR/1.73 m2 >= 60.00 Glucose 101 Hemoglobin A1c 5.9 H Calcium 9.1 Magnesium Troponin I 0.42 H* NT-Pro-B Natriuret Pep Triglycerides 110 Total Cholesterol 191 LDL Cholesterol, Calc 105 H HDL Cholesterol 64 01/17/21 08:00 WBC RBC Hgb Hct MCV MCH MCHC RDW Plt Count MPV Immature Gran % Neutrophils % Lymphocytes % Monocytes % Eosinophils % Basophils % Nucleated RBC % Absolute Neutrophils Absolute Lymphocytes Absolute Monocytes Absolute Eosinophils Absolute Basophils APTT 25.4 Sodium Potassium Chloride Carbon Dioxide Anion Gap BUN Creatinine Estimated GFR/1.73 m2 Glucose Hemoglobin A1c Calcium Magnesium Troponin I NT-Pro-B Natriuret Pep Triglycerides Total Cholesterol LDL Cholesterol, Calc HDL Cholesterol
[2021-01-17] MEDS: LORazepam 2 MG/ML VIAL 0.5 MG IM (16:52)
[2021-01-17 17:15] LABS: PTT Activated 34.9 sec (21.0-27.5)
--- NOTE | 2021-01-17 17:51 | CHAPLAIN ---
Den was sitting up having her dinner when I visited. She was pleasant in greeting me. I introduce myself and explained my role and she thanked me for stopping in and said she would call me if she needed me.
--- NOTE | 2021-01-17 18:31 | PDOC.CMIN ---
- If Service Date Differs Date of service: 01/17/21 Time of Service: 18:31 Care Management Initial Assess REASON FOR HOSPITALIZATION:: Pneumonia, COPD exacerbation PAST MEDICAL HISTORY/PAST SURGICAL HISTORY:: Active Problem List. Respiratory failure with hypoxia (Acute). COPD with acute exacerbation (Acute). Multifocal pneumonia (Acute). Acute exacerbation of chronic obstructive pulmonary disease (Acute). Current smoker (Acute). Narcotic withdrawal (Acute). Nausea (Acute). Hypertension (Acute). Seizures (Acute). Chronic pain (Acute). Anemia (Acute). Medical History. Abdominal pain. Cachexia. Chest pain. Chronic, continuous use of opioids. Fatigue. GI bleed. Helicobacter pylori gastritis. Hx of drug withdrawal syndrome. Late effect of pelvic fracture. Loss of vision. Movement disorder. PTSD (post-traumatic stress disorder). Temporal lobe epilepsy. Vitamin D deficiency PREVIOUS FUNCTIONAL STATUS/SOCIAL/FAMILY SUPPORTS:: Den resides with her , Danis, their dog and cat in [place], [place]. 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 She is independent with all ADLs and continues to drive. CURRENT FUNCTIONAL STATUS:: Den was lying in bed when CM met with her. She reported that she is feeling better than when she arrived. She shared that she is hoping to be back to her physical baseline when she returns home, as she heats her home with wood. She also stated that her is home with her and will help her while she recovers. She was on room air, not requiring O2. She stated that she is very independent at baseline, and does not use any equipment at home. She is being followed by Pulmonary. CM will continue to follow. ADVANCE DIRECTIVES:: None on file. Has patient been provided with info about the portal/API?: Yes Did the patient sign up for the portal?: No CODE STATUS:: Full Code INSURANCE COVERAGE / FINANCIAL ISSUES:: MCR CURRENT HOME/COMMUNITY SERVICES/EQUIPMENT:: No current services or equipment. PRIMARY CARE PHYSICIAN:: Amber Kraus POTENTIAL DISCHARGE NEEDS:: Follow up appointments. PATIENT/FAMILY EDUCATION NEEDS:: Review discharge instructions and limitations, discussion of self care needs including ask me three. ANTICIPATED BARRIERS TO DISCHARGE:: None identified. TRANSPORTATION:: Via private vehicle by her . PLAN:: Anticipate Den will return home when medically cleared, with no new services. Her will drive her home via private vehicle. She will follow up with her PCP and discharge plan of care. CM will continue to follow.
[2021-01-17] MEDS: Gabapentin 100 MG CAP PO (22:22)
[2021-01-17] MEDS: rOPINIRole 0.5 MG TAB PO (22:22)
[2021-01-17 23:54] LABS: PTT Activated 45.3 sec (21.0-27.5)
[2021-01-18 00:06] VITALS: BP 123/74; PULSE 75; RESP 18; TEMP 35.8; O2SAT 96
[2021-01-18] MEDS: LORazepam 2 MG/ML VIAL 0.5 MG IM (03:27)
[2021-01-18 03:55] VITALS: BP 145/89; PULSE 87; RESP 18; TEMP 36.5; O2SAT 96
[2021-01-18 06:05] LABS: PTT Activated 39.2 sec (21.0-27.5)
[2021-01-18 07:04] VITALS: PULSE 80
[2021-01-18] MEDS: Tiotropium/Olodaterol 10 PUFF INHALER 2 PUFF IH (07:55)
[2021-01-18 08:05] VITALS: BP 154/80; PULSE 91; RESP 22; TEMP 36.6; O2SAT 96
[2021-01-18] MEDS: Aspirin E.C. 81 MG TABEC PO (08:05)
[2021-01-18] MEDS: Sucralfate 1 GM TAB PO (08:05)
[2021-01-18] MEDS: predniSONE 20 MG TAB 40 MG PO (08:06)
[2021-01-18 09:16] LABS: Abs Immature Grans 0.04 10^3/uL (0.0-0.06); Absolute Basophil Count 0.03 10^3/uL (0.0-0.2); Absolute Eosinophil Count 0.01 10^3/uL (0.0-0.7); Absolute Lymphocyte Count 2.98 10^3/uL (1.2-3.4); Absolute Neutrophil Count 8.32 10^3/uL (1.2-6.7); Basophils % 0.2; Eosinophils % 0.1; HCT 40.7 % (36.0-46.0); HGB 13.4 g/dL (11.2-15.7); Immature Grans % 0.3; Lymphocytes % 23.6; MCH 29.4 pg (27.0-33.0); MCHC 32.9 % (32.0-36.0); MCV 89.3 fL (80-95); MPV 10.1 fL (8.0-11.0); Monocytes % 9.8; Nucleated RBC 0 %; Platelet Count 380 10^3/uL (130-400); RBC 4.56 10^6/uL (3.93-5.22); RDW 15.2 % (11.7-14.6); RDW-SD 50.4 fL; WBC 12.61 10^3/uL (4.4-10.8)
[2021-01-18 09:32] LABS: Absolute Monocyte Count 1.24 10^3/uL (0.1-0.8)
--- NOTE | 2021-01-18 10:48 | PGE_ITS ---
Date of Service Date of service: 01/18/21 Time of Service: 10:50 Assessment and Plan Assessment and plan (1) Respiratory failure with hypoxia: Status: Acute Assessment and plan: Secondary to COPD exacerbation and PNA She is now on no supplemental O2. Pulmonary following. (2) COPD with acute exacerbation: Status: Acute Assessment and plan: Cont Stiolto Cont Duonebs and prn albuterol. Prednisone 40mg po daily; IV solumedrol 125mg given in ED. Acapella and IS. (3) Multifocal pneumonia: Status: Acute Assessment and plan: Now off supplemental O2 and respiratory status much improved. Flu A and B negative. Levaquin 750 mg IV Q48H; convert to po. Urine strep pneumo and Legionella antigens pending. Sputum culture ordered but she hasn't expectorated a sample. Blood cultures negative to date. (4) Current smoker: Status: Acute Assessment and plan: Nicoderm patch (5) Hypertension: Status: Acute Assessment and plan: Controlled. Cont Metoprolol. Monitor. (6) Chronic pain: Status: Acute Assessment and plan: Now controlled / at baseline. Unclear location but she states pain is in most joints / allover. Cont MS Contin 15mg tabs BID; home med list states it is taken Q8H prn. She endorses taking it 2x day most often. Cont Percocet 10mg [id number] prn. She was given a 4mg dose of morphine IV in the ED and 6 mg IM once admitted (IV was pulled out by pt). Cont Neurontin (7) Temporal lobe epilepsy: Assessment and plan: Not on seizure medication other than Neurotin which is presumably for pain. (8) Hx of drug withdrawal syndrome: Assessment and plan: Cont home narcotics and monitor closely for adverse effects / somnolence. (9) Cachexia: Assessment and plan: BMI of 14. Failure to thrive. Once she is more calm and conversant will discuss supplementation. Nutrition consulted. (10) NSTEMI (non-ST elevated myocardial infarction): Status: Acute Assessment and plan: Due to demand secondary to PNA and COPD exacerbation. Troponin peaked at 0.68 then decreased to 0.42 T-wave inversions; same as on EKGs at [facility] in [place]. Cardiology at [facility] discussed case last night and again today. Echocardiogram; EF of 45%. Segmental left ventricular wall motion abnormalities with akinesis of the apical cap, otherwise diffuse hypokinesis with preserved systolic functiononly of the basal inferolateral wall segment. Cont ASA and BB. No intervention indicated at this time. Subjective Subjective Patient reports: no new complaints, tolerating a regular diet and afebrile; denies nausea, vomiting and shortness of breath Interval history since last seen: Continues to feel very fatigued. No SOA/dyspnea Exam Const General: no acute distress and frail appearing Nutritional Appearance: cachectic [facility] Head: normocephalic and atraumatic Eyes General: appearance normal, both eyes and all related structures Sclera: sclerae normal Resp Effort & Inspection: normal respiratory effort Auscultation: clear to auscultation bilaterally Cardio Rate: regular rate Rhythm: regular rhythm Heart Sounds: S1 normal and S2 normal GI Palpation: soft and nontender Neuro General: no focal motor deficits Gait: normal gait Extrem General: no pedal edema and no calf tenderness Objective Last Vital Signs Temp 36.6 C 01/18/21 08:05 Pulse 91 H 01/18/21 08:05 Resp 22 01/18/21 08:05 BP 154/80 H 01/18/21 08:05 Pulse Ox 96 01/18/21 08:05 Laboratory Results - last 24 hr 01/17/21 01/17/21 01/17/21 08:00 16:35 23:31 WBC RBC Hgb Hct MCV MCH MCHC RDW Plt Count MPV Immature Gran % Neutrophils % Lymphocytes % Monocytes % Eosinophils % Basophils % Nucleated RBC % Absolute Neutrophils Absolute Lymphocytes Absolute Monocytes Absolute Eosinophils Absolute Basophils APTT 34.9 H D 45.3 H D Magnesium 2.0 01/18/21 01/18/21 01/18/21 05:23 05:23 12:15 WBC 12.61 H RBC 4.56 Hgb 13.4 Hct 40.7 MCV 89.3 MCH 29.4 MCHC 32.9 RDW 15.2 H Plt Count 380 MPV 10.1 Immature Gran % 0.3 Neutrophils % 66.0 Lymphocytes % 23.6 Monocytes % 9.8 Eosinophils % 0.1 Basophils % 0.2 Nucleated RBC % 0 Absolute Neutrophils 8.32 H Absolute Lymphocytes 2.98 Absolute Monocytes 1.24 H Absolute Eosinophils 0.01 Absolute Basophils 0.03 APTT 39.2 H Cancelled Magnesium
[2021-01-18] MEDS: levoFLOXacin 500 MG, levoFLOXacin 250 MG 750 MG PO (10:51)
[2021-01-18] MEDS: HYDROcodone 10/Acetaminophen 325 TAB PO (10:52)
--- NOTE | 2021-01-18 12:11 | DSE_ITS ---
Date of service: 01/18/21 Time of Service: 12:11 DS: Diagnosis Discharge Diagnosis (1) Respiratory failure with hypoxia: Status: Acute (2) COPD with acute exacerbation: Status: Acute (3) Multifocal pneumonia: Status: Acute (4) Current smoker: Status: Acute (5) Hypertension: Status: Acute (6) Chronic pain: Status: Acute (7) Temporal lobe epilepsy: (8) Hx of drug withdrawal syndrome: (9) Cachexia: (10) NSTEMI (non-ST elevated myocardial infarction): Status: Acute Discharge Plan Disposition Patient Disposition: HOME Condition: Improving Discharge Details Reason For Visit: Pneumonia, COPD Exacerbation Admit Date/Time: 01/16/21 10:01 Admit Provider: Westley Gagnon Attending Provider: Westley Gagnon Primary Care Provider: Amber Kraus [facility] Course Hospital Course: This is a 75 yo femal with a PMH of COPD, tobacco and marijuana use, HTN, Sizures, Anemia, previous narcotic withdrawal. She was seen in the ED at [facility] 5 days prior to this admission and dxd with pneumonia. She was d/c'd to home on albuterol, prednisone and azithromycin. She did not initially fill the scripts but did 2 days ago. She had used her neighbors home O2 at 4L starting one month ago; hasn't seen him since then; he is COVID positive. She tested Covid negative 5 days ago and at time of this admission. No reported fever/chills, CP/palpitations. No N/V/abd pain/diarrhea. No dysuria. On 2L supplemental O2 per NC with a saturation of 95%. CT chest showed bilateral multifocal ground-glass opacities. No pulmonary emboli. COVID-19 negative. WBC count 16.28. Na 133. BUN 26. Creatinine 0.6. Troponin 0.32 > 0.39. VBG with pCO2 of 38. pH 7.38. pO2 22. Levaquin 750mg IV Q48 hours initiated. IV solumedrol 125mg given. Pulmonary medicine consulted. She was initially very agitated and in pain; requiring an IM dose of morphine (IV became dislodged) and then the initiation of her MS Contin and prn Percocet. Because of her troponin elevations: 0.32>0.39>0.59>0.68>0.42. Pt had no CP. After obtaining an echocardiogram and cardiology review of the results, it was determined that there was no immediate intervention warranted. Echocardiogram showed: EF of 45%. Segmental left ventricular wall motion abnormalities with akinesis of the apical cap, otherwise diffuse hypokinesis with preserved systolic functiononly of the basal inferolateral wall segment. Cont ASA and BB. She was weaned off supplemental O2 and maintained O2 saturations in the mid 90's. She felt she was able to discharge and care for her needs. Consider [place] cardiac stress testing as an outpt. New medication, Stiolto, initiated. A prescription was given. She also had a + UA with E.Coli growing; sensitivities pending. WBC improving from 16 to 12. She will take two more doses of Levaquin 750mg Q48H; next dose on 01/20. Cont a burst of prednisone 20mg daily for 3 days. Follow up with PCP in 1 week. Home Meds and New Rx's Prescriptions: New prednisone 20 mg Tablet 20 mg PO DAILY Qty: 3 RF: 0 aspirin 81 mg Tablet,Delayed Release (Dr/Ec) 81 mg PO DAILY Qty: 0 RF: 0 levofloxacin 750 mg Tablet 750 mg PO Q48H Qty: 2 RF: 0 Stiolto Respimat 2.5-2.5 mcg/actuation Mist 2 puff inhalation DAILY Qty: 4 RF: 0 Continued ascorbic acid-ascorbate sodium 500 mg wafer 1 wafer PO DAILY RF: 0 fluoxetine 40 mg capsule 40 mg PO DAILY RF: 0 food supplemt, lactose-reduced 0.05-1.5 gram-kcal/mL liquid PO BID RF: 0 sucralfate 1 gram tablet 1 g PO BID RF: 0 morphine [MS Contin] 15 mg tablet extended release 15 mg PO Q8H PRNRF: 0 ropinirole 0.5 mg tablet 0.5 mg PO QHS RF: 0 hydrocodone-acetaminophen 10-325 mg tablet 1 tab PO QID PRN (Reason: Pain) RF: 0 gabapentin 100 mg Capsule 100 mg PO QHS RF: 0 albuterol sulfate 90 mcg/actuation HFA aerosol inhaler 1 - 2 inh INHALATION Q4H PRNRF: 0 carbidopa-levodopa 25-250 mg tablet 1 tab PO BID RF: 0 ferrous gluconate 236 mg (27 mg iron) Tablet 236 mg PO DAILY RF: 0 metoprolol succinate [Toprol XL] 50 MG tablet extended release 24 hr 50 mg PO DAILY RF: 0 prednisone 20 mg tablet 40 mg PO DAILY Qty: 8 RF: 0 Discharge Instructions Stand Alone Forms: Nursing Discharge Form Referrals: Isabel Shetty MD [ [facility] STAFF PHYSICIAN] - 03/20/21 1:00 pm Activity:: Activity as Tolerated Equipment/Supplies:: No Equipment Needed Diet:: As Tolerated Discharge Orders Discharge Orders: Discharge Order (Routine); Ordered 01/18/21 Ordered By: Westley Gagnon DS: Summary Time Spent with Patient providing and/or coordinating discharge services: Less than 30 minutes Status at Discharge Functional status at discharge: independent ambulation Overall status at discharge: patient is progressing back to baseline Mental Status: mental status grossly normal Speech and Movement: speech and movement normal Mood: congruent mood Affect: normal affect Exam Const General: no acute distress and frail appearing Nutritional Appearance: cachectic [facility] Head: normocephalic and atraumatic Eyes General: appearance normal, both eyes and all related structures Sclera: sclerae normal Resp Effort & Inspection: normal respiratory effort Auscultation: clear to auscultation bilaterally Cardio Rate: regular rate Rhythm: regular rhythm Heart Sounds: S1 normal and S2 normal GI Palpation: soft and nontender Neuro General: no focal motor deficits Gait: normal gait Extrem General: no pedal edema and no calf tenderness Psych Mental Status: mental status grossly normal Speech and Movement: speech and movement normal Mood: congruent mood Affect: normal affect DS: Data Vitals/I&O Vitals and I&O: Vital Signs Temperature 36.6 C 01/18/21 08:05 Temperature Source Tympanic 01/18/21 08:05 Pulse 91 H 01/18/21 08:05 Pulse Rhythm Regular 01/18/21 00:33 Pulse 82 01/16/21 11:00 Respiratory Rate 22 01/18/21 08:05 Respiratory Effort 01/18/21 00:33 Respiratory Depth Shallow 01/18/21 00:33 Respiratory Pattern Normal 01/18/21 00:33 Blood Pressure 154/80 H 01/18/21 08:05 Blood Pressure Mean 109 01/16/21 13:18 Blood Pressure Position Supine 01/16/21 07:58 Pulse Oximetry 96 01/18/21 08:05 Oxygen Delivery Method Room Air 01/18/21 08:05 Oxygen Flow Rate 0 01/18/21 08:05 Pain Level 6 01/18/21 10:52 Comment 01/16/21 13:46 Intake & Output 01/17/21 01/18/21 01/18/21 23:59 11:59 23:59 Intake Total 96.350 / 138.267 47.125 / 47.125 Output Total 125 / 125 150 / 150 Balance -28.650 / 13.267 -102.875 / -102.875 Weight 35.335 kg Intake: IV 96.350 / 138.267 47.125 / 47.125 Output: Urine 125 / 125 150 / 150 Other: Urine Color Straw Yellow Urine Appearance Clear Clear Urine Odor Normal Voiding Methods Bedside Commode Bedside Commode Data Completed and Pending Labs on day of discharge: Labs from last 24 hours 01/18/21 01/18/21 01/18/21 12:15 05:23 05:23 WBC 12.61 H RBC 4.56 Hgb 13.4 Hct 40.7 MCV 89.3 MCH 29.4 MCHC 32.9 RDW 15.2 H Plt Count 380 MPV 10.1 Immature Gran % 0.3 Neutrophils % 66.0 Lymphocytes % 23.6 Monocytes % 9.8 Eosinophils % 0.1 Basophils % 0.2 Nucleated RBC % 0 Absolute Neutrophils 8.32 H Absolute Lymphocytes 2.98 Absolute Monocytes 1.24 H Absolute Eosinophils 0.01 Absolute Basophils 0.03 APTT Cancelled 39.2 H Magnesium 01/17/21 01/17/21 01/17/21 23:31 16:35 08:00 WBC RBC Hgb Hct MCV MCH MCHC RDW Plt Count MPV Immature Gran % Neutrophils % Lymphocytes % Monocytes % Eosinophils % Basophils % Nucleated RBC % Absolute Neutrophils Absolute Lymphocytes Absolute Monocytes Absolute Eosinophils Absolute Basophils APTT 45.3 H D 34.9 H D Magnesium 2.0 Preliminary micro results at discharge 01/16/21 11:03 Blood Culture - Preliminary Blood NO GROWTH 24 HOURS 01/16/21 10:55 Blood Culture - Preliminary Blood NO GROWTH 24 HOURS PENDING SALE TO [facility] Active Problem List NSTEMI (non-ST elevated myocardial infarction) (Acute) Respiratory failure with hypoxia (Acute) COPD with acute exacerbation (Acute) Multifocal pneumonia (Acute) Current smoker (Acute) Narcotic withdrawal (Acute) Nausea (Acute) Hypertension (Acute) Seizures (Acute) Chronic pain (Acute) Anemia (Acute) Medical History Abdominal pain Cachexia Chest pain Chronic, continuous use of opioids Fatigue GI bleed Helicobacter pylori gastritis Hx of drug withdrawal syndrome Late effect of pelvic fracture Loss of vision Movement disorder PTSD (post-traumatic stress disorder) Temporal lobe epilepsy Vitamin D deficiency Social History Smoking/Tobacco Use Status: Current every day Tobacco Type: cigarettes Smoking risk assessment performed?: Yes Alcohol Intake: never Drug use: Daily Substance use type: marijuana Do you feel safe at home: Yes Do you feel safe in your relationship?: Yes
[2021-01-18] MEDS: Albuterol/Ipratropium 3 ML UPD VIAL UPD (12:13)
[2021-01-18 12:20] VITALS: PULSE 121
[2021-01-19 14:37] LABS: Streptococcus Pneumoniae Ag, U Negative (Negative)
== END 2021-01-18 13:10 | disposition home or self-care (01) | DRG 193 ==
LOC: ER 10:27 → MS 15:38
PROVIDERS: Internal Medicine; Student in an Organized Health Care Education/Training Program; Admitting Provider Family Medicine; Emergency Provider Physician Assistant; PCP Family Medicine; Visit Provider Family Medicine
DX: J18.9 Pneumonia, unspecified organism (principal); J96.01 Acute respiratory failure with hypoxia; I21.A1 Myocardial infarction type 2; J44.0 Chronic obstructive pulmonary disease with (acute) lower respiratory infection; Z68.1 Body mass index [BMI] 19.9 or less, adult; R64 Cachexia; J44.1 Chronic obstructive pulmonary disease with (acute) exacerbation; F17.210 Nicotine dependence, cigarettes, uncomplicated; Z20.822 Contact with and (suspected) exposure to COVID-19; G89.29 Other chronic pain; D64.9 Anemia, unspecified; G40.909 Epilepsy, unspecified, not intractable, without status epilepticus; F12.90 Cannabis use, unspecified, uncomplicated
CPT/HCPCS: 36415; 71275; 80048; 80053; 80061; 82805; 84145; 87040; 87449; 87635; 93005; 94640; 96365; 96375; 99285; J1650; 83036; 83605; 83735; 83880; 84100; 84484; 85025; 85730; 87899; 93010; 93306; 99223; 99233; 99238; J0131; J1956; J2060; J2270; J2930; J3490; J7512; J7613; J7620

== ENCOUNTER 2021-03-23 13:02 | Observation (INO) | payer MEDICARE, SELFPAY ==
[2021-03-23] VITALS (9 sets, daily range): BP systolic 144–165; BP diastolic 78–109; PULSE 72–84; RESP 13–20; TEMP 37.2–37.7; O2SAT 98–99
[2021-03-23 13:29] LABS: Abs Immature Grans 0.06 10^3/uL (0.0-0.06); Absolute Basophil Count 0.01 10^3/uL (0.0-0.2); Absolute Lymphocyte Count 1.37 10^3/uL (1.2-3.4); Absolute Monocyte Count 1.08 10^3/uL (0.1-0.8); Absolute Neutrophil Count 9.79 10^3/uL (1.2-6.7); Basophils % 0.1; HCT 34.4 % (36.0-46.0); HGB 11.1 g/dL (11.2-15.7); Immature Grans % 0.5; Lymphocytes % 11.1; MCH 28.5 pg (27.0-33.0); MCHC 32.3 % (32.0-36.0); MCV 88.2 fL (80-95); MPV 9.1 fL (8.0-11.0); Monocytes % 8.8; Neutrophils % 79.5; Nucleated RBC 0 %; Platelet Count 336 10^3/uL (130-400); RDW 13.5 % (11.7-14.6); RDW-SD 43.8 fL; WBC 12.32 10^3/uL (4.4-10.8)
[2021-03-23] MEDS: Pantoprazole 40 MG VIAL IVP ×2 (13:35→14:03)
[2021-03-23 13:47] LABS: ALT 18 U/L (14-59); AST 26 U/L (15-37); Alkaline Phosphatase 62 U/L (46-116); Anion Gap 11.5 mmol/L (3-11); BUN 29 mg/dL (7-18); Bilirubin, Total 0.3 mg/dL (0.2-1.0); CO2 25.5 mmol/L (21.0-32.0); Calcium 9.8 mg/dL (8.5-10.1); Chloride 98 mmol/L (98-107); Estimated GFR 53.76 (mL/min/1.73m2); Glucose 128 mg/dL (74-106); Potassium 3.7 mmol/L (3.5-5.1); Sodium 135 mmol/L (136-145)
[2021-03-23 13:50] LABS: PTT Activated 20.3 sec (21.0-27.5); Prothrombin Time 9.9 sec (9.3-11.0)
--- NOTE | 2021-03-23 13:50 | ED.GENADUL_ITS ---
Discharge Plan Disposition Patient Disposition: [facility] INPATIENT Condition: Serious Discharge Details Chief Complaint: GI Bleed Clinical Impression: Hematemesis, Acute anemia Primary Care Provider: Amber Kraus ED Provider: Joshua Urban Home Meds and New Rx's Prescriptions: No Action Spiriva Respimat 2.5 mcg/actuation mist 2 inh inhalation QAM Qty: 4 RF: 12 ascorbic acid-ascorbate sodium 500 mg wafer 1 wafer PO DAILY RF: 0 fluoxetine 40 mg capsule 40 mg PO DAILY RF: 0 food supplemt, lactose-reduced 0.05-1.5 gram-kcal/mL liquid PO BID RF: 0 sucralfate 1 gram tablet 1 g PO BID RF: 0 morphine [MS Contin] 15 mg tablet extended release 15 mg PO Q8H PRNRF: 0 ropinirole 0.5 mg tablet 0.5 mg PO QHS RF: 0 hydrocodone-acetaminophen 10-325 mg tablet 1 tab PO QID PRN (Reason: Pain) RF: 0 albuterol sulfate 90 mcg/actuation HFA aerosol inhaler 1 - 2 inh INHALATION Q4H PRNRF: 0 carbidopa-levodopa 25-250 mg tablet 1 tab PO BID RF: 0 ferrous gluconate 236 mg (27 mg iron) Tablet 236 mg PO DAILY RF: 0 aspirin 81 mg Tablet,Delayed Release (Dr/Ec) 81 mg PO DAILY Qty: 0 RF: 0 levofloxacin 750 mg Tablet 750 mg PO Q48H Qty: 2 RF: 0 metoprolol succinate [Toprol XL] 50 MG tablet extended release 24 hr 50 mg PO DAILY RF: 0 Medical Decision Making 75-year-old female with history of hepatitis C, H. pylori gastritis in the past, Parkinson's, epilepsy, coronary artery disease, here with intermittent hematemesis over the past 2 days. No hematemesis today. Patient hemodynamically stable. Patient has no abdominal pain and abdominal exam is benign. Patient was given Protonix 80 mg IV. Labs were reviewed and acute anemia with hemoglobin of 11 noted. I called and spoke with Dr. Brink, on-call general surgeon, discussed ED presentation course including diagnostics, she has evaluated the patient emergency department and will admit. Care transition to Dr. Brink at time of admission. Medical Records Medical records reviewed: Yes I reviewed the patient's medical records. Lab Data Lab results reviewed: Yes I reviewed the patient's lab results. Labs: Laboratory Tests Range/Units 03/23/21 03/23/21 03/23/21 13:00 13:00 13:00 WBC (4.4-10.8) 10^3/uL 12.32 H RBC (3.93-5.22) 10^6/uL 3.90 L Hgb (11.2-15.7) g/dL 11.1 L Hct (36.0-46.0) % 34.4 L MCV (80-95) fL 88.2 MCH (27.0-33.0) pg 28.5 MCHC (32.0-36.0) % 32.3 RDW (11.7-14.6) % 13.5 Plt Count (130-400) 10^3/uL 336 MPV (8.0-11.0) fL 9.1 Immature Gran % 0.5 Neutrophils % 79.5 Lymphocytes % 11.1 Monocytes % 8.8 Eosinophils % 0.0 Basophils % 0.1 Nucleated RBC % % 0 Absolute Neutrophils (1.2-6.7) 10^3/uL 9.79 H Absolute Lymphocytes (1.2-3.4) 10^3/uL 1.37 Absolute Monocytes (0.1-0.8) 10^3/uL 1.08 H Absolute Eosinophils (0.0-0.7) 10^3/uL 0.00 Absolute Basophils (0.0-0.2) 10^3/uL 0.01 PT (9.3-11.0) sec 9.9 INR (0.9-1.1) 1.0 APTT (21.0-27.5) sec 20.3 L Sodium (136-145) mmol/L 135 L Potassium (3.5-5.1) mmol/L 3.7 Chloride (98-107) mmol/L 98 Carbon Dioxide (21.0-32.0) mmol/L 25.5 Anion Gap (3-11) mmol/L 11.5 H BUN (7-18) mg/dL 29 H Creatinine (0.55-1.02) mg/dL 1.0 Estimated GFR/1.73 m2 (mL/min/1.73m2) 53.76 Glucose (74-106) mg/dL 128 H Calcium (8.5-10.1) mg/dL 9.8 Total Bilirubin (0.2-1.0) mg/dL 0.3 AST (15-37) U/L 26 ALT (14-59) U/L 18 Alkaline Phosphatase (46-116) U/L 62 Total Protein (6.4-8.2) g/dL 8.0 Albumin (3.4-5.0) g/dL 4.0 Patient ABO/Rh Antibody Screen Range/Units 03/23/21 13:00 WBC (4.4-10.8) 10^3/uL RBC (3.93-5.22) 10^6/uL Hgb (11.2-15.7) g/dL Hct (36.0-46.0) % MCV (80-95) fL MCH (27.0-33.0) pg MCHC (32.0-36.0) % RDW (11.7-14.6) % Plt Count (130-400) 10^3/uL MPV (8.0-11.0) fL Immature Gran % Neutrophils % Lymphocytes % Monocytes % Eosinophils % Basophils % Nucleated RBC % % Absolute Neutrophils (1.2-6.7) 10^3/uL Absolute Lymphocytes (1.2-3.4) 10^3/uL Absolute Monocytes (0.1-0.8) 10^3/uL Absolute Eosinophils (0.0-0.7) 10^3/uL Absolute Basophils (0.0-0.2) 10^3/uL PT (9.3-11.0) sec INR (0.9-1.1) APTT (21.0-27.5) sec Sodium (136-145) mmol/L Potassium (3.5-5.1) mmol/L Chloride (98-107) mmol/L Carbon Dioxide (21.0-32.0) mmol/L Anion Gap (3-11) mmol/L BUN (7-18) mg/dL Creatinine (0.55-1.02) mg/dL Estimated GFR/1.73 m2 (mL/min/1.73m2) Glucose (74-106) mg/dL Calcium (8.5-10.1) mg/dL Total Bilirubin (0.2-1.0) mg/dL AST (15-37) U/L ALT (14-59) U/L Alkaline Phosphatase (46-116) U/L Total Protein (6.4-8.2) g/dL Albumin (3.4-5.0) g/dL Patient ABO/Rh A Positive Antibody Screen NEGATIVE HPI General Mode of arrival: EMS . Date/Time Provider Initiated Documentation: 03/23/21 13:43 . Limitations to Documentation: no limitations . Information obtained by: patient and EMS . HPI Narrative: 75yo f with history of hepatitis C, prior gastritis with H. pylori, seizure disorder, Parkinson's disease, presents with chief complaint of vomiting blood. Patient notes that for the past 2 days she has had intermittent episodes of vomiting bright red blood with some large clots. Initially she had some left upper quadrant abdominal discomfort that has resolved. She has not had any vomiting episodes today. No melena or bright red blood per rectum. Related Data Home Medications Medication Instructions Recorded Confirmed metoprolol succinate [Toprol XL] 50 mg PO DAILY 09/15/17 03/23/21 ascorbic acid-ascorbate sodium 1 wafer PO DAILY 07/12/20 03/23/21 (vitamin C) 500 mg oral wafer fluoxetine 40 mg capsule 40 mg PO DAILY 07/12/20 03/23/21 food supplemt, lactose-reduced ml PO BID ml 07/12/20 03/20/21 0.05 gram-1.5 kcal/mL oral liquid morphine 15 mg tablet,extended 15 mg PO Q8H PRN 07/12/20 03/23/21 release ropinirole 0.5 mg tablet 0.5 mg PO QHS 07/12/20 03/23/21 sucralfate 1 gram tablet 1 g PO BID 07/12/20 03/23/21 albuterol sulfate 1 - 2 inh INHALATION Q4H PRN 01/16/21 03/23/21 carbidopa-levodopa 1 tab PO BID 01/16/21 03/23/21 ferrous gluconate 236 mg PO DAILY 01/16/21 03/23/21 hydrocodone-acetaminophen 1 tab PO QID PRN 01/16/21 03/23/21 aspirin 81 mg PO DAILY #0 tab 01/18/21 03/20/21 levofloxacin 750 mg PO Q48H #2 tab 01/18/21 tiotropium bromide 2.5 2 inh INHALATION QAM #4 g 01/25/22 01/28/22 mcg/actuation mist for inhalation Previous Rx's Medication Instructions Recorded aspirin 81 mg PO DAILY #0 tab 01/18/21 levofloxacin 750 mg PO Q48H #2 tab 01/18/21 tiotropium bromide 2.5 2 inh INHALATION QAM #4 g 03/20/21 mcg/actuation mist for inhalation Allergies Allergy/AdvReac Type Severity Reaction Status Date / Time Sulfa (Sulfonamide Allergy Severe Anaphylaxsi Unverified 03/23/21 13:53 Antibiotics) s meperidine HCl [From Demerol] Allergy Intermediate Contraindicated, Unverified 03/23/21 13:53 seizures phenytoin sodium Allergy Intermediate Contraindicated, Unverified 03/23/21 13:53 [From Dilantin] seizures phenytoin sodium extended Allergy Intermediate Contraindicated, Unverified 03/23/21 13:53 [From Dilantin] seizures amoxicillin Allergy Verified 03/23/21 13:53 diazepam [From Valium] Allergy Verified 03/23/21 13:53 hydromorphone [From Dilaudid] Allergy Verified 03/23/21 13:53 midazolam HCl [From Versed] AdvReac Intermediate Psychosis Unverified 03/23/21 13:53 General Stated Complaint: GI Bleed CRISTO: 3 Review of Systems All systems reviewed & are unremarkable except as noted in HPI and below Constitutional Constitutional: Denies fever(s) Gastrointestinal Gastrointestinal: Reports as per HPI and Denies abdominal pain PFSH All Active Problems (Updated 03/23/21 @ 14:27 by Joshua Urban MD) Hematemesis (Acute) Acute anemia (Acute) COPD (chronic obstructive pulmonary disease) (Chronic) NSTEMI (non-ST elevated myocardial infarction) (Acute) Current smoker (Acute) Narcotic withdrawal (Acute) Nausea (Acute) Hypertension (Acute) Seizures (Acute) Chronic pain (Acute) Anemia (Acute) Medical History Abdominal pain Cachexia Chest pain Chronic, continuous use of opioids COPD with acute exacerbation Fatigue GI bleed Helicobacter pylori gastritis Hx of drug withdrawal syndrome Late effect of pelvic fracture Loss of vision Movement disorder Multifocal pneumonia PTSD (post-traumatic stress disorder) Respiratory failure with hypoxia Temporal lobe epilepsy Vitamin D deficiency Social History Smoking/Tobacco Use Status: Never Smoking risk assessment performed?: Yes Alcohol Intake: never Drug use: Daily Substance use type: marijuana Details: smokes the marijuana - No Tobacco use Do you feel safe at home: Yes Do you feel safe in your relationship?: Yes Exam Const General: cooperative and no acute distress HENMT Mouth: moist mucous membranes Eyes Conjunctivae: normal conjunctivae Sclera: normal sclerae EOM: EOM intact bilaterally Neck Neck: trachea midline and supple Resp Auscultation: clear to auscultation bilaterally, no rales, no rhonchi and no wheezes Cardio Rate: regular rate and not tachycardic Rhythm: regular rhythm GI Palpation: soft, not firm, no guarding, no masses, not rigid and nontender Skin General skin exam: no rashes or lesions noted Neuro General: patient alert, patient awake, patient oriented x3 and tone normal Extrem General: no edema Psych Appearance: grossly normal Mental Status: mental status grossly normal Speech and Movement: speech and movement normal Course Vital Signs Vital signs: Vital Signs Temperature 37.3 C 03/23/21 12:58 Pulse 80 03/23/21 12:58 Respiratory Rate 13 03/23/21 12:58 Blood Pressure 145/109 H 03/23/21 12:58 Pulse Oximetry 98 03/23/21 12:58 Temperature 37.3 C 03/23/21 12:58 Temperature Source Oral 03/23/21 12:58 Pulse 80 03/23/21 12:58 Respiratory Rate 13 03/23/21 12:58 Respiratory Effort 03/23/21 13:42 Blood Pressure 145/109 H 03/23/21 12:58 Pulse Oximetry 98 03/23/21 12:58 Oxygen Delivery Method Room Air 03/23/21 12:58 Oxygen Flow Rate 0 03/23/21 12:58 Pain Level 0 03/23/21 13:37 Lab/Test Results Lab/Test Results: Laboratory Tests Range/Units 03/23/21 13:00 WBC (4.4-10.8) 10^3/uL 12.32 H RBC (3.93-5.22) 10^6/uL 3.90 L Hgb (11.2-15.7) g/dL 11.1 L Hct (36.0-46.0) % 34.4 L MCV (80-95) fL 88.2 MCH (27.0-33.0) pg 28.5 MCHC (32.0-36.0) % 32.3 RDW (11.7-14.6) % 13.5 Plt Count (130-400) 10^3/uL 336 MPV (8.0-11.0) fL 9.1 Immature Gran % 0.5 Neutrophils % 79.5 Lymphocytes % 11.1 Monocytes % 8.8 Eosinophils % 0.0 Basophils % 0.1 Nucleated RBC % % 0 Absolute Neutrophils (1.2-6.7) 10^3/uL 9.79 H Absolute Lymphocytes (1.2-3.4) 10^3/uL 1.37 Absolute Monocytes (0.1-0.8) 10^3/uL 1.08 H Absolute Eosinophils (0.0-0.7) 10^3/uL 0.00 Absolute Basophils (0.0-0.2) 10^3/uL 0.01
[2021-03-23] MEDS: Lactated Ringers 1,000 ML 75 ML IV (14:04)
--- NOTE | 2021-03-23 14:17 | HPE_ITS ---
Date of service: 03/23/21 Time of Service: 14:17 Assessment and Plan Assessment and plan (1) Hematemesis: Status: Acute Assessment and plan: Patient is a 75 year old female who comes in with a 2 days hsitory of hematemesis. NO emesis today. Denies abdominal pain. Denies nausea. Will admit for observation. Treat with 80 mg of protonix BID and Carafate QID Gentle hydration NPO overnight- if she does well and has no further hematemsis then will give her a diet in the am and d/c to home Continue all home medications except for aspirin Activity: up at [facility] DVT prophilaxis: SCD's (2) COPD (chronic obstructive pulmonary disease): Status: Chronic (3) Chronic pain: Status: Acute (4) Seizures: Status: Acute History of Present Illness History of Present Illness Chief Complaint: Hematemesis Consults Consult date: 03/23/21 Requesting physician: Joshua Urban Narrative: Ms Perez is a 75-year-old female with a history of COPD, myocardial infarction in the past, seizures, Parkinson's, gastritis, and chronic pain who comes in today with a history of hematemesis for 2 days. She has not vomited today. She denies any abdominal pain. She denies nausea. Looking at her chart she has had bouts of hematemesis in the past. The last time was 2017. She is not on any antacids. She has a history of hep C but states that is controlled. She has no known history of varices. Her last colonoscopy and upper endoscopy were sometime ago. There are no records at [facility] [place]. Review of Systems Constitutional Constitutional: Denies anorexia, Denies fatigue, Denies fever(s), Denies headache(s) and Denies weight loss Eyes Eyes: Denies change in vision ENT Ears, Nose, Mouth, and Throat: Denies headache(s) and Denies hoarseness Cardiovascular Cardiovascular: Denies chest pain, Denies irregular heart rhythm, Denies palpitations and Denies dyspnea Respiratory Respiratory: Denies cough and Denies dyspnea Gastrointestinal Gastrointestinal: Reports as per HPI Genitourinary Genitourinary: Reports system reviewed and no additional complaints, except as documented Musculoskeletal Musculoskeletal: Reports back pain (chronic) Neurologic Neurologic: Reports system reviewed and no additional complaints, except as documented and Denies headache(s) Psychiatric Psychiatric: Reports system reviewed and no additional complaints, except as documented Endocrine Endocrine: Reports system reviewed and no additional complaints, except as documented, Denies fatigue and Denies palpitations PFSH All Active Problems Hematemesis (Acute) Acute anemia (Acute) COPD (chronic obstructive pulmonary disease) (Chronic) NSTEMI (non-ST elevated myocardial infarction) (Acute) Current smoker (Acute) Narcotic withdrawal (Acute) Nausea (Acute) Hypertension (Acute) Seizures (Acute) Chronic pain (Acute) Anemia (Acute) Medical History Abdominal pain Cachexia Chest pain Chronic, continuous use of opioids COPD with acute exacerbation Fatigue GI bleed Helicobacter pylori gastritis Hx of drug withdrawal syndrome Late effect of pelvic fracture Loss of vision Movement disorder Multifocal pneumonia PTSD (post-traumatic stress disorder) Respiratory failure with hypoxia Temporal lobe epilepsy Vitamin D deficiency Social History Smoking/Tobacco Use Status: Never Smoking risk assessment performed?: Yes Alcohol Intake: never Drug use: Daily Substance use type: marijuana Details: smokes the marijuana - No Tobacco use Do you feel safe at home: Yes Do you feel safe in your relationship?: Yes Meds Allergies and Home Medications Allergies Allergy/AdvReac Type Severity Reaction Status Date / Time Sulfa (Sulfonamide Allergy Severe Anaphylaxsi Unverified 03/23/21 13:53 Antibiotics) s meperidine HCl [From Demerol] Allergy Intermediate Contraindicated, Unverified 03/23/21 13:53 seizures phenytoin sodium Allergy Intermediate Contraindicated, Unverified 03/23/21 13:53 [From Dilantin] seizures phenytoin sodium extended Allergy Intermediate Contraindicated, Unverified 03/23/21 13:53 [From Dilantin] seizures amoxicillin Allergy Verified 03/23/21 13:53 diazepam [From Valium] Allergy Verified 03/23/21 13:53 hydromorphone [From Dilaudid] Allergy Verified 03/23/21 13:53 midazolam HCl [From Versed] AdvReac Intermediate Psychosis Unverified 03/23/21 13:53 Home Medications Medication Instructions Recorded Confirmed Type metoprolol succinate [Toprol XL] 50 mg PO DAILY 09/15/17 03/23/21 History ascorbic acid-ascorbate sodium 1 wafer PO DAILY 07/12/20 03/23/21 History (vitamin C) 500 mg oral wafer fluoxetine 40 mg capsule 40 mg PO DAILY 07/12/20 03/23/21 History food supplemt, lactose-reduced ml PO BID ml 07/12/20 03/20/21 History 0.05 gram-1.5 kcal/mL oral liquid morphine 15 mg tablet,extended 15 mg PO Q8H PRN 07/12/20 03/23/21 History release ropinirole 0.5 mg tablet 0.5 mg PO QHS 07/12/20 03/23/21 History sucralfate 1 gram tablet 1 g PO BID 07/12/20 03/23/21 History albuterol sulfate 1 - 2 inh INHALATION Q4H PRN 01/16/21 03/23/21 History carbidopa-levodopa 1 tab PO BID 01/16/21 03/23/21 History ferrous gluconate 236 mg PO DAILY 01/16/21 03/23/21 History hydrocodone-acetaminophen 1 tab PO QID PRN 01/16/21 03/23/21 History aspirin 81 mg PO DAILY #0 tab 01/18/21 03/20/21 Rx levofloxacin 750 mg PO Q48H #2 tab 01/18/21 Rx tiotropium bromide 2.5 2 inh INHALATION QAM #4 g 03/20/21 03/23/21 Rx mcg/actuation mist for inhalation Exam Const General: cooperative, comfortable and no acute distress Orientation: alert and oriented x3 HENMT Head: normocephalic and atraumatic Cardio Rate: regular rate Rhythm: regular rhythm Heart Sounds: no gallops, no murmurs and no rubs GI Inspection: normal to inspection Palpation: soft, no hepatosplenomegaly, nontender and No ascites Auscultation: normal bowel sounds Results Labs Result diagrams: 03/23/21 13:00 03/23/21 13:00 Labs: Laboratory Results - last 24 hr 03/23/21 03/23/21 03/23/21 13:00 13:00 13:00 WBC 12.32 H RBC 3.90 L Hgb 11.1 L Hct 34.4 L MCV 88.2 MCH 28.5 MCHC 32.3 RDW 13.5 Plt Count 336 MPV 9.1 Immature Gran % 0.5 Neutrophils % 79.5 Lymphocytes % 11.1 Monocytes % 8.8 Eosinophils % 0.0 Basophils % 0.1 Nucleated RBC % 0 Absolute Neutrophils 9.79 H Absolute Lymphocytes 1.37 Absolute Monocytes 1.08 H Absolute Eosinophils 0.00 Absolute Basophils 0.01 PT 9.9 INR 1.0 APTT 20.3 L Sodium 135 L Potassium 3.7 Chloride 98 Carbon Dioxide 25.5 Anion Gap 11.5 H BUN 29 H Creatinine 1.0 Estimated GFR/1.73 m2 53.76 Glucose 128 H Calcium 9.8 Total Bilirubin 0.3 AST 26 ALT 18 Alkaline Phosphatase 62 Total Protein 8.0 Albumin 4.0 Patient ABO/Rh Antibody Screen 03/23/21 13:00 WBC RBC Hgb Hct MCV MCH MCHC RDW Plt Count MPV Immature Gran % Neutrophils % Lymphocytes % Monocytes % Eosinophils % Basophils % Nucleated RBC % Absolute Neutrophils Absolute Lymphocytes Absolute Monocytes Absolute Eosinophils Absolute Basophils PT INR APTT Sodium Potassium Chloride Carbon Dioxide Anion Gap BUN Creatinine Estimated GFR/1.73 m2 Glucose Calcium Total Bilirubin AST ALT Alkaline Phosphatase Total Protein Albumin Patient ABO/Rh A Positive Antibody Screen NEGATIVE Last Vital Signs Temp 99.1 F 03/23/21 12:58 Pulse 80 03/23/21 12:58 Resp 13 03/23/21 12:58 BP 145/109 H 03/23/21 12:58 Pulse Ox 98 03/23/21 12:58
[2021-03-23 14:41] LABS: Source Nasal/Nares
[2021-03-23] MEDS: Sucralfate 1 GM TAB PO ×2 (16:10→21:05)
[2021-03-23 20:28] LABS: COVID-19 PCR Negative (Negative)
[2021-03-23] MEDS: rOPINIRole 0.5 MG TAB PO (21:05)
[2021-03-23] MEDS: Normal Saline Flush 10 ML SYR IVP (22:26)
[2021-03-23] MEDS: Pantoprazole 40 MG VIAL 80 MG IVP (22:26)
[2021-03-24] MEDS: Lactated Ringers 1,000 ML 75 ML IV (03:00)
[2021-03-24] MEDS: HYDROcodone 10/Acetaminophen 325 TAB PO ×2 (03:09→09:27)
[2021-03-24 07:40] VITALS: BP 147/79; PULSE 69; RESP 15; TEMP 37; O2SAT 99
[2021-03-24] MEDS: Tiotropium Bromide-Respimat 10 PUFF INH 2 PUFF IH (08:06)
[2021-03-24] MEDS: Pantoprazole 40 MG VIAL 80 MG IVP (09:26)
[2021-03-24] MEDS: Sucralfate 1 GM TAB PO ×3 (09:27→15:40)
[2021-03-24] MEDS: Normal Saline Flush 10 ML SYR IVP ×2 (09:27→12:04)
[2021-03-24] MEDS: Metoprolol CR 50 MG TABCR PO (09:29)
[2021-03-24] MEDS: FLUoxetine 20 MG CAP 40 MG PO (09:29)
--- NOTE | 2021-03-24 10:52 | W.PM.PROGNOT ---
Date of Service Date of service: 03/24/21 Time of Service: 10:52 Assessment and Plan Assessment and plan (1) Hematemesis: Status: Acute Assessment and plan: Patient is a 75 year old female who comes in with a 2 days hsitory of hematemesis. NO emesis today. Denies abdominal pain. Denies nausea. Has had no further N/V Hgb is stable Switch to po Protonix 40 mg BID Stop Carafate Diet: start a regular diet. If able to tolerate then will D/C to home Continue all home medications except for aspirin Activity: up at [facility] DVT prophilaxis: SCD's (2) COPD (chronic obstructive pulmonary disease): Status: Chronic (3) Chronic pain: Status: Acute (4) Seizures: Status: Acute Subjective Subjective Interval history since last seen: Mrs Perez is doing well. She has had no further hematemesis. She has had no Nausea Hgb is up to 12 Exam Const General: cooperative and comfortable Orientation: alert and oriented x3 HENMT Head: normocephalic and atraumatic Resp Effort & Inspection: normal respiratory effort Auscultation: clear to auscultation bilaterally Cardio Rate: regular rate Rhythm: regular rhythm GI Palpation: soft, no hepatosplenomegaly and nontender Objective Last Vital Signs Temp 98.6 F 03/24/21 07:40 Pulse 69 03/24/21 07:40 Resp 15 03/24/21 07:40 BP 147/79 H 03/24/21 07:40 Pulse Ox 99 03/24/21 07:40 Laboratory Results - last 24 hr 03/23/21 03/23/21 03/23/21 13:00 13:00 13:00 WBC 12.32 H RBC 3.90 L Hgb 11.1 L Hct 34.4 L MCV 88.2 MCH 28.5 MCHC 32.3 RDW 13.5 Plt Count 336 MPV 9.1 Immature Gran % 0.5 Neutrophils % 79.5 Lymphocytes % 11.1 Monocytes % 8.8 Eosinophils % 0.0 Basophils % 0.1 Nucleated RBC % 0 Absolute Neutrophils 9.79 H Absolute Lymphocytes 1.37 Absolute Monocytes 1.08 H Absolute Eosinophils 0.00 Absolute Basophils 0.01 PT 9.9 INR 1.0 APTT 20.3 L Sodium 135 L Potassium 3.7 Chloride 98 Carbon Dioxide 25.5 Anion Gap 11.5 H BUN 29 H Creatinine 1.0 Estimated GFR/1.73 m2 53.76 Glucose 128 H Calcium 9.8 Total Bilirubin 0.3 AST 26 ALT 18 Alkaline Phosphatase 62 Total Protein 8.0 Albumin 4.0 COVID-19 Source SARS-CoV-2 (PCR) Patient ABO/Rh Antibody Screen 03/23/21 03/23/21 03/24/21 13:00 14:30 06:10 WBC RBC Hgb 12.0 Hct MCV MCH MCHC RDW Plt Count MPV Immature Gran % Neutrophils % Lymphocytes % Monocytes % Eosinophils % Basophils % Nucleated RBC % Absolute Neutrophils Absolute Lymphocytes Absolute Monocytes Absolute Eosinophils Absolute Basophils PT INR APTT Sodium Potassium Chloride Carbon Dioxide Anion Gap BUN Creatinine Estimated GFR/1.73 m2 Glucose Calcium Total Bilirubin AST ALT Alkaline Phosphatase Total Protein Albumin COVID-19 Source Nasal/Nares SARS-CoV-2 (PCR) Negative Patient ABO/Rh A Positive Antibody Screen NEGATIVE
--- NOTE | 2021-03-24 10:56 | W.PM.DS.N ---
Date of service: 03/24/21 Time of Service: 10:56 DS: Diagnosis Discharge Diagnosis (1) Hematemesis: Status: Acute (2) COPD (chronic obstructive pulmonary disease): Status: Chronic (3) Chronic pain: Status: Acute (4) Seizures: Status: Acute Discharge Plan Disposition Patient Disposition: HOME Condition: Serious Discharge Details Reason For Visit: Hematemesis Admit Date/Time: 03/23/21 13:50 Admit Provider: Gris Brink Attending Provider: Gris Brink Primary Care Provider: Amber Kraus [facility] Course Hospital Course: Mrs Perez is a 75 year old who was admitted with 2 days of hematemesis. Patient has had multiple episodes over the years. She was started on Protonic and Carafate and kept for observation. She had no Emesis overnight. Her Hgb improved to 12. She was started on a diet which she tolerated With her history of recurrent Hematemsis recommend that she stay on protonix 40 mg po BID for 3 months and then cut down to 40 mg daily and stay on that indefinitely. With her history of smoking she should have an EGD which can be done as an outpatient. Home Meds and New Rx's Prescriptions: New pantoprazole [Protonix] 40 mg tablet,delayed release (DR/EC) 40 mg PO BID 90 Days Qty: 180 RF: 0 Continued Spiriva Respimat 2.5 mcg/actuation mist 2 inh inhalation QAM Qty: 4 RF: 12 ascorbic acid-ascorbate sodium 500 mg wafer 1 wafer PO DAILY RF: 0 fluoxetine 40 mg capsule 40 mg PO DAILY RF: 0 food supplemt, lactose-reduced 0.05-1.5 gram-kcal/mL liquid PO BID RF: 0 morphine [MS Contin] 15 mg tablet extended release 15 mg PO Q8H PRNRF: 0 ropinirole 0.5 mg tablet 0.5 mg PO QHS RF: 0 hydrocodone-acetaminophen 10-325 mg tablet 1 tab PO QID PRN (Reason: Pain) RF: 0 albuterol sulfate 90 mcg/actuation HFA aerosol inhaler 1 - 2 inh INHALATION Q4H PRNRF: 0 carbidopa-levodopa 25-250 mg tablet 1 tab PO BID RF: 0 ferrous gluconate 236 mg (27 mg iron) Tablet 236 mg PO DAILY RF: 0 levofloxacin 750 mg Tablet 750 mg PO Q48H Qty: 2 RF: 0 metoprolol succinate [Toprol XL] 50 MG tablet extended release 24 hr 50 mg PO DAILY RF: 0 Discontinued sucralfate 1 gram tablet 1 g PO BID RF: 0 aspirin 81 mg Tablet,Delayed Release (Dr/Ec) 81 mg PO DAILY Qty: 0 RF: 0 Discharge Instructions Instructions: Diet for Stomach Ulcers and Gastritis (ED) Additional Instructions: Activity at Home after surgery: 1. As tolerated Diet, Nutrition, & wound healin. Avoid alcohol 2. Make sure to eat plenty of lean protein (meat, fish, eggs, cottage cheese, beans) 3. Eat a variety of fruits and vegetables. Eat plenty of high fiber foods to avoid constipation. 4. Drink plenty of liquids to stay hydrated and avoid constipation 5. Follow a low acid diet for 3 weeks Pain Medications: 1. Resume Home pain medications For Constipation: 1. Take Milk of Magnesia or MiraLax as needed for constipation Other: Please take the Protonix as prescribed Please call our office if you develop: 1. Fevers >101.5 2. Nausea or Vomiting If after hours please call the Hospital at and ask to speak to the on-call surgeon Stand Alone Forms: Nursing Discharge Form Referrals: Gris Brink MD [ [facility]] - 05/01/21 11:30 am Activity:: Activity as Tolerated Equipment/Supplies:: No Equipment Needed Diet:: low acid Discharge Orders Discharge Orders: Discharge Order (Routine); Ordered 03/24/21 Ordered By: Gris Brink DS: Summary Time Spent with Patient providing and/or coordinating discharge services: Greater than 30 minutes Status at Discharge Functional status at discharge: independent ambulation Overall status at discharge: patient is back to baseline Mental Status: mental status grossly normal Speech and Movement: speech and movement normal Mood: congruent mood Affect: normal affect Exam Resp Effort & Inspection: normal respiratory effort Auscultation: clear to auscultation bilaterally Cardio Rate: regular rate Rhythm: regular rhythm GI Palpation: soft and nontender Psych Mental Status: mental status grossly normal Speech and Movement: speech and movement normal Mood: congruent mood Affect: normal affect DS: Data Vitals/I&O Vitals and I&O: Vital Signs Temperature 98.6 F 01/29/22 07:40 Temperature Source Tympanic 03/24/21 07:40 Pulse 69 03/24/21 07:40 Pulse Rhythm Regular 03/24/21 03:50 Pulse 84 03/23/21 14:39 Respiratory Rate 15 03/24/21 07:40 Respiratory Effort Non-Labored 03/24/21 03:50 Respiratory Depth Normal 03/24/21 03:50 Respiratory Pattern Normal 03/24/21 03:50 Blood Pressure 147/79 H 03/24/21 07:40 Blood Pressure Mean 103 03/23/21 14:39 Pulse Oximetry 99 03/24/21 07:40 Oxygen Delivery Method Room Air 03/24/21 07:40 Oxygen Flow Rate 0 03/24/21 07:40 Pain Level 5 03/24/21 09:27 Comment 03/23/21 22:45 Intake & Output 03/23/21 03/23/21 03/24/21 11:59 23:59 11:59 Intake Total 970 / 970 Output Total 450 / 450 Balance -450 / -450 970 / 970 Weight 85 lb Intake: IV 970 / 970 Output: Urine 450 / 450 Other: Urine Color Yellow Urine Appearance Clear Emesis Description Bright Red Blood Black Voiding Methods Bedside Commode Data Completed and Pending Labs on day of discharge: Labs from last 24 hours 03/24/21 03/23/21 03/23/21 06:10 14:30 13:00 WBC RBC Hgb 12.0 Hct MCV MCH MCHC RDW Plt Count MPV Immature Gran % Neutrophils % Lymphocytes % Monocytes % Eosinophils % Basophils % Nucleated RBC % Absolute Neutrophils Absolute Lymphocytes Absolute Monocytes Absolute Eosinophils Absolute Basophils PT INR APTT Sodium Potassium Chloride Carbon Dioxide Anion Gap BUN Creatinine Estimated GFR/1.73 m2 Glucose Calcium Total Bilirubin AST ALT Alkaline Phosphatase Total Protein Albumin COVID-19 Source Nasal/Nares SARS-CoV-2 (PCR) Negative Patient ABO/Rh A Positive Antibody Screen NEGATIVE 03/23/21 03/23/21 03/23/21 13:00 13:00 13:00 WBC 12.32 H RBC 3.90 L Hgb 11.1 L Hct 34.4 L MCV 88.2 MCH 28.5 MCHC 32.3 RDW 13.5 Plt Count 336 MPV 9.1 Immature Gran % 0.5 Neutrophils % 79.5 Lymphocytes % 11.1 Monocytes % 8.8 Eosinophils % 0.0 Basophils % 0.1 Nucleated RBC % 0 Absolute Neutrophils 9.79 H Absolute Lymphocytes 1.37 Absolute Monocytes 1.08 H Absolute Eosinophils 0.00 Absolute Basophils 0.01 PT 9.9 INR 1.0 APTT 20.3 L Sodium 135 L Potassium 3.7 Chloride 98 Carbon Dioxide 25.5 Anion Gap 11.5 H BUN 29 H Creatinine 1.0 Estimated GFR/1.73 m2 53.76 Glucose 128 H Calcium 9.8 Total Bilirubin 0.3 AST 26 ALT 18 Alkaline Phosphatase 62 Total Protein 8.0 Albumin 4.0 COVID-19 Source SARS-CoV-2 (PCR) Patient ABO/Rh Antibody Screen PFSH All Active Problems Hematemesis (Acute) Acute anemia (Acute) COPD (chronic obstructive pulmonary disease) (Chronic) NSTEMI (non-ST elevated myocardial infarction) (Acute) Current smoker (Acute) Narcotic withdrawal (Acute) Nausea (Acute) Hypertension (Acute) Seizures (Acute) Chronic pain (Acute) Anemia (Acute) Medical History Abdominal pain Cachexia Chest pain Chronic, continuous use of opioids COPD with acute exacerbation Fatigue GI bleed Helicobacter pylori gastritis Hx of drug withdrawal syndrome Late effect of pelvic fracture Loss of vision Movement disorder Multifocal pneumonia PTSD (post-traumatic stress disorder) Respiratory failure with hypoxia Temporal lobe epilepsy Vitamin D deficiency Social History Smoking/Tobacco Use Status: Never Smoking risk assessment performed?: Yes Alcohol Intake: never Drug use: Daily Substance use type: marijuana Details: smokes the marijuana - No Tobacco use Do you feel safe at home: Yes Do you feel safe in your relationship?: Yes
[2021-03-24 11:29] VITALS: RESP 16
--- NOTE | 2021-03-24 17:26 | CMPROGNOTE_ITS ---
- If Service Date Differs Date of service: 03/24/21 Time of Service: 17:26 Care Management Progress Note Den was admitted on 03/23/21 and discharged 24 hours later on 03/24/21 with no services. CLIFF was asked to arrange transport for Den, who reported that her could not pick her up because he is not well. CLIFF called [facility], who agreed to transport her, once it was discovered that her physical address is [place], not [place]. CLIFF was asked to send an authorization form to [facility], as she does not have [facility]. CLIFF called her , Danis, who reiterated that he cannot pick her up because he is not able to drive after dark. He was appreciative that CLIFF was able to set up [facility].
== END 2021-03-24 15:52 | disposition home or self-care (01) ==
LOC: ER 14:27 → MS 15:03
PROVIDERS: Admitting Provider Surgery; Emergency Provider Student in an Organized Health Care Education/Training Program; PCP Family Medicine; Visit Provider Surgery
DX: K29.71 Gastritis, unspecified, with bleeding (principal); J44.9 Chronic obstructive pulmonary disease, unspecified; G89.29 Other chronic pain; I25.2 Old myocardial infarction; G40.909 Epilepsy, unspecified, not intractable, without status epilepticus; G20 Parkinson's disease; B19.20 Unspecified viral hepatitis C without hepatic coma; F17.210 Nicotine dependence, cigarettes, uncomplicated; D64.9 Anemia, unspecified; R64 Cachexia; Z68.1 Body mass index [BMI] 19.9 or less, adult; E55.9 Vitamin D deficiency, unspecified; F43.10 Post-traumatic stress disorder, unspecified; Z20.822 Contact with and (suspected) exposure to COVID-19
CPT/HCPCS: 36415; 80053; 86850; 86900; 86901; 87635; 94640; 96361; 96374; 99217; 99220; 99225; 99285; 85018; 85025; 85610; 85730; G0378; J3490

== ENCOUNTER 2021-10-19 07:14 | Emergency (ER) | payer MEDICARE, SELFPAY ==
[2021-10-19] VITALS (24 sets, daily range): BP systolic 135–172; BP diastolic 58–98; PULSE 66–112; RESP 16–49; O2SAT 97–100
[2021-10-19 07:42] LABS: Source Nasal/Nares
[2021-10-19 07:43] LABS: Abs Immature Grans 0.07 10^3/uL (0.0-0.06); Absolute Lymphocyte Count 1.61 10^3/uL (1.2-3.4); Basophils % 0.5; Eosinophils % 0.5; HCT 40.7 % (36.0-46.0); HGB 13.5 g/dL (11.2-15.7); Immature Grans % 0.5; Lymphocytes % 10.7; MCH 27.8 pg (27.0-33.0); MCHC 33.2 % (32.0-36.0); MCV 84 fL (80-95); Monocytes % 4.3; Neutrophils % 83.5; Platelet Count 422 10^3/uL (130-400); RBC 4.85 10^6/uL (3.93-5.22); RDW 16.3 % (11.7-14.6); RDW-SD 50.9 fL; WBC 15.04 10^3/uL (4.4-10.8)
[2021-10-19 07:44] LABS: Absolute Basophil Count 0.08 10^3/uL (0.0-0.2); Absolute Eosinophil Count 0.08 10^3/uL (0.0-0.7); Absolute Monocyte Count 0.65 10^3/uL (0.1-0.8); Absolute Neutrophil Count 12.56 10^3/uL (1.2-6.7)
[2021-10-19] MEDS: Ondansetron 4 MG/2 ML VIAL IVP ×2 (07:51→09:22)
[2021-10-19] MEDS: Pantoprazole 40 MG VIAL 80 MG IVP (07:52)
[2021-10-19 07:58] LABS: ALT 9 U/L (14-59); AST 17 U/L (15-37); Albumin 4.2 g/dL (3.4-5.0); Alkaline Phosphatase 67 U/L (46-116); Anion Gap 11.2 mmol/L (3-11); BUN 25 mg/dL (7-18); Bilirubin, Total 0.2 mg/dL (0.2-1.0); CO2 22.8 mmol/L (21.0-32.0); CREATININE 0.9 mg/dL (0.55-1.02); Calcium 9.4 mg/dL (8.5-10.1); Chloride 106 mmol/L (98-107); Glucose 162 mg/dL (74-106); INR 0.9 (0.9-1.1); Lipase 96 U/L (73-393); PTT Activated 21.5 sec (21.0-27.5); Potassium 3.5 mmol/L (3.5-5.1); Prothrombin Time 9.5 sec (9.3-11.0); Sodium 140 mmol/L (136-145); Total Protein 9.1 g/dL (6.4-8.2)
[2021-10-19] MEDS: Lidocaine 2% Viscous 15 ML CUP PO (07:58)
[2021-10-19] MEDS: Mylanta Suspension 30 ML CUP PO (07:59)
[2021-10-19 08:16] LABS: COVID-19 PCR Negative (Negative)
--- NOTE | 2021-10-19 08:19 | W.ED.GENAD ---
Discharge Plan Disposition Patient Disposition: HOME Condition: Improving Discharge Details Clinical Impression: Acute upper GI bleed Primary Care Provider: Amber Kraus ED Provider: Westley Ramirez Home Meds and New Rx's Prescriptions: New pantoprazole 40 mg tablet,delayed release (DR/EC) 40 mg PO DAILY 30 Days Qty: 30 0RF No Action Spiriva Respimat 2.5 mcg/actuation mist 2 inh inhalation QAM Qty: 4 12RF ascorbic acid-ascorbate sodium 500 mg wafer 1 wafer PO DAILY fluoxetine 40 mg capsule 40 mg PO DAILY food supplemt, lactose-reduced 0.05-1.5 gram-kcal/mL liquid PO BID morphine [MS Contin] 15 mg tablet extended release 15 mg PO Q8H PRN ropinirole 0.5 mg tablet 0.5 mg PO QHS Rx Instructions: administer 1-3 hours before bedtime hydrocodone-acetaminophen 10-325 mg tablet 1 tab PO QID PRN (Reason: Pain) Label Comments: TAKE ONE TABLET BY MOUTH FOUR TIMES A DAY NEEDED albuterol sulfate 90 mcg/actuation HFA aerosol inhaler 1 - 2 inh INHALATION Q4H PRN Label Comments: INHALE 1 TO 2 PUFFS EVERY 4 TO 6 HOURS NEEDED carbidopa-levodopa 25-250 mg tablet 1 tab PO BID Label Comments: TAKE ONE TABLET BY MOUTH TWICE A DAY ferrous gluconate 236 mg (27 mg iron) Tablet 236 mg PO DAILY levofloxacin 750 mg Tablet 750 mg PO Q48H Qty: 2 0RF Rx Instructions: Take first dose on 01/20/21 metoprolol succinate [Toprol XL] 50 MG tablet extended release 24 hr 50 mg PO DAILY Discharge Instructions Instructions: Gastrointestinal Bleeding (ED) Additional Instructions: Please follow-up with [facility] GI specialist. Please return to the emergency department for any worsening symptoms. Medical Decision Making 75-year-old female history of prior feeding tube due to remote trauma status post removal, prior upper GI bleeds related to scar tissue from prior feeding tube, presents with resolving upper GI bleed symptomatology including upper abdominal discomfort epigastric discomfort nausea vomiting was bringing up dark or bloody material at home. No active vomiting here. Hemodynamically stable. Alert oriented. Normal skin color and perfusion, normal conjunctiva. Abdomen soft nontender nondistended. No blood thinner use no active drinking. Consider resolved upper GI bleed in the setting of gastritis versus ulcer versus prior scar tissue, lower suspicion for variceal bleed. Currently resting comfortably nonperitoneal. Protonix has been ordered basic labs, close reassessment. If patient has no further events and is able to tolerate p.o. consider home with close GI follow-up however if patient has any further vomiting or signs of hemodynamic instability or lab abnormalities will consider admission. 10: 23 patient resting comfortably no vomiting in department. Hemodynamically stable. Labs unremarkable. Will be given follow-up with [facility] GI. Home care instructions and return precautions given. Will be started on PPI. HPI General Date/Time Provider Initiated Documentation: 10/19/21 07:18. HPI Narrative: 75-year-old female history of prior upper GI bleed secondary to scar tissue from a prior feeding tube due to remote trauma, feeding tube has been out for well over a decade, has had intermittent upper GI bleeds in the past once requiring cauterization. Denies blood thinner use. Denies heavy drinking. Was at a wedding within the last couple of days endorses upset stomach from some of the food, had nausea this morning vomited initially partially digested food products and then began to bring up dark bloody and coffee-ground material. No current vomiting. Does have epigastric and left upper quadrant discomfort. Related Data Home Medications Medication Instructions Recorded Confirmed metoprolol succinate 50 mg 50 mg PO DAILY 09/15/17 10/19/21 tablet,extended release 24 hr (Toprol XL) ascorbic acid-ascorbate sodium 1 wafer PO DAILY 07/12/20 10/19/21 (vitamin C) 500 mg oral wafer fluoxetine 40 mg capsule 40 mg PO DAILY 07/12/20 10/19/21 food supplemt, lactose-reduced ml PO BID 07/12/20 03/20/21 0.05 gram-1.5 kcal/mL oral liquid morphine 15 mg tablet,extended 15 mg PO Q8H PRN 07/12/20 10/19/21 release (MS Contin) ropinirole 0.5 mg tablet 0.5 mg PO QHS 07/12/20 10/19/21 albuterol sulfate 90 mcg/actuation 1 - 2 inh inhalation Q4H PRN 01/16/21 10/19/21 aerosol inhaler carbidopa 25 mg-levodopa 250 mg 1 tab PO BID 01/16/21 10/19/21 tablet ferrous gluconate 236 mg (27 mg 236 mg PO DAILY 01/16/21 10/19/21 iron) tablet hydrocodone 10 mg-acetaminophen 1 tab PO QID PRN Pain 01/16/21 10/19/21 325 mg tablet levofloxacin 750 mg tablet 750 mg PO Q48H #2 tabs 01/18/21 10/19/21 tiotropium bromide 2.5 2 inh inhalation QAM #4 grams 03/20/21 10/19/21 mcg/actuation mist for inhalation (Spiriva Respimat) pantoprazole 40 mg tablet,delayed 40 mg PO DAILY 30 days #30 tabs 10/19/21 release Previous Rx's Medication Instructions Recorded levofloxacin 750 mg tablet 750 mg PO Q48H #2 tabs 01/18/21 tiotropium bromide 2.5 2 inh inhalation QAM #4 grams 03/20/21 mcg/actuation mist for inhalation (Spiriva Respimat) pantoprazole 40 mg tablet,delayed 40 mg PO DAILY 30 days #30 tabs 10/19/21 release Allergies Allergy/AdvReac Type Severity Reaction Status Date / Time Sulfa (Sulfonamide Allergy Severe Anaphylaxsi Unverified 10/19/21 08:24 Antibiotics) s meperidine HCl [From Demerol] Allergy Intermediate Contraindicated, Unverified 10/19/21 08:24 seizures phenytoin sodium Allergy Intermediate Contraindicated, Unverified 10/19/21 08:24 [From Dilantin] seizures phenytoin sodium extended Allergy Intermediate Contraindicated, Unverified 10/19/21 08:24 [From Dilantin] seizures amoxicillin Allergy Verified 10/19/21 08:24 diazepam [From Valium] Allergy Verified 10/19/21 08:24 hydromorphone [From Dilaudid] Allergy Verified 10/19/21 08:24 midazolam HCl [From Versed] AdvReac Intermediate Psychosis Unverified 10/19/21 08:24 General Stated Complaint: GI Bleed CRISTO: 2 Review of Systems Narrative: Review of Systems Constitutional: negative Eyes: negative ENT: negative Cardiovascular: negative Respiratory: negative Gastrointestinal: Abdominal pain, nausea, vomiting : negative Musculoskeletal: negative Skin: negative Neurologic: negative Psych: negative PFSH All Active Problems (Updated 10/19/21 @ 10:24 by Westley Ramirez MD) Acute upper GI bleed (Acute) Hematemesis (Acute) Acute anemia (Acute) NSTEMI (non-ST elevated myocardial infarction) (Acute) Current smoker (Acute) Narcotic withdrawal (Acute) Nausea (Acute) Hypertension (Acute) Anemia (Acute) Medical History Abdominal pain Cachexia Chest pain Chronic, continuous use of opioids COPD with acute exacerbation Fatigue GI bleed Helicobacter pylori gastritis Hx of drug withdrawal syndrome Late effect of pelvic fracture Loss of vision Movement disorder Multifocal pneumonia PTSD (post-traumatic stress disorder) Respiratory failure with hypoxia Temporal lobe epilepsy Vitamin D deficiency Social History Smoking/Tobacco Use Status: Never Smoking risk assessment performed?: Yes Alcohol Intake: current Alcohol Intake frequency: holidays/special occasions only Drug use: Daily Substance use type: marijuana Details: smokes the marijuana - No Tobacco use Do you feel safe at home: Yes Do you feel safe in your relationship?: Yes Exam Narrative Exam Narrative: Physical Examination General: alert, awake, cooperative, resting comfortably, no acute distress HEENT: normocephalic, atraumatic; PERRL, EOM intact, conjunctiva normal; no nasal discharge; moist mucous membranes, oral and pharyngeal mucosa normal, tolerating secretions Neck: supple, trachea midline; full ROM Chest: normal to inspection Respiratory: normal respiratory effort, speaking in full sentences, clear to auscultation, no wheezing, rales or rhonchi Cardiac: regular rate, regular rhythm, S1S2 intact, no murmurs rubs or gallops GI: abdomen soft, non-tender, non-distended; no palpable mass or hepatosplenomegaly Skin: no lesions, rashes or trauma appreciated Neuro: AAOx3, normal speech, moving all extremities Psych: Appropriate mood and affect Course Vital Signs Vital signs: Vital Signs Pulse 100 H 10/19/21 07:12 Respiratory Rate 18 10/19/21 07:12 Blood Pressure 162/88 H 10/19/21 07:12 Pulse Oximetry 97 10/19/21 07:12 Temperature Source Temporal Artery Scan 10/19/21 07:12 Pulse 100 H 10/19/21 07:12 Respiratory Rate 18 10/19/21 07:12 Respiratory Effort Non-Labored 10/19/21 07:20 Blood Pressure 162/88 H 10/19/21 07:12 Blood Pressure Position Supine 10/19/21 07:12 Pulse Oximetry 97 10/19/21 07:12 Oxygen Delivery Method Room Air 10/19/21 07:12 Oxygen Flow Rate 0 10/19/21 07:12 Pain Level 3 10/19/21 07:20 Lab/Test Results Lab/Test Results: Laboratory Tests Range/Units 10/19/21 10/19/21 10/19/21 07:16 07:16 07:16 WBC (4.4-10.8) 10^3/uL 15.04 H RBC (3.93-5.22) 10^6/uL 4.85 Hgb (11.2-15.7) g/dL 13.5 Hct (36.0-46.0) % 40.7 MCV (80-95) fL 84 MCH (27.0-33.0) pg 27.8 MCHC (32.0-36.0) % 33.2 RDW (11.7-14.6) % 16.3 H Plt Count (130-400) 10^3/uL 422 H MPV (8.0-11.0) fL 9.0 Immature Gran % 0.5 Neutrophils % 83.5 Lymphocytes % 10.7 Monocytes % 4.3 Eosinophils % 0.5 Basophils % 0.5 Nucleated RBC % (0.0-0.3) % 0.0 Absolute Neutrophils (1.2-6.7) 10^3/uL 12.56 H Absolute Lymphocytes (1.2-3.4) 10^3/uL 1.61 Absolute Monocytes (0.1-0.8) 10^3/uL 0.65 Absolute Eosinophils (0.0-0.7) 10^3/uL 0.08 Absolute Basophils (0.0-0.2) 10^3/uL 0.08 PT (9.3-11.0) sec 9.5 INR (0.9-1.1) 0.9 APTT (21.0-27.5) sec 21.5 Sodium (136-145) mmol/L 140 Potassium (3.5-5.1) mmol/L 3.5 Chloride (98-107) mmol/L 106 Carbon Dioxide (21.0-32.0) mmol/L 22.8 Anion Gap (3-11) mmol/L 11.2 H BUN (7-18) mg/dL 25 H Creatinine (0.55-1.02) mg/dL 0.9 Estimated GFR/1.73 m2 (mL/min/1.73m2) >= 60.00 Glucose (74-106) mg/dL 162 H Calcium (8.5-10.1) mg/dL 9.4 Total Bilirubin (0.2-1.0) mg/dL 0.2 AST (15-37) U/L 17 ALT (14-59) U/L 9 L Alkaline Phosphatase (46-116) U/L 67 Total Protein (6.4-8.2) g/dL 9.1 H Albumin (3.4-5.0) g/dL 4.2 Lipase (73-393) U/L 96 COVID-19 Source Patient ABO/Rh Range/Units 10/19/21 10/19/21 10/19/21 07:16 07:18 07:29 WBC (4.4-10.8) 10^3/uL RBC (3.93-5.22) 10^6/uL Hgb (11.2-15.7) g/dL Hct (36.0-46.0) % MCV (80-95) fL MCH (27.0-33.0) pg MCHC (32.0-36.0) % RDW (11.7-14.6) % Plt Count (130-400) 10^3/uL MPV (8.0-11.0) fL Immature Gran % Neutrophils % Lymphocytes % Monocytes % Eosinophils % Basophils % Nucleated RBC % (0.0-0.3) % Absolute Neutrophils (1.2-6.7) 10^3/uL Absolute Lymphocytes (1.2-3.4) 10^3/uL Absolute Monocytes (0.1-0.8) 10^3/uL Absolute Eosinophils (0.0-0.7) 10^3/uL Absolute Basophils (0.0-0.2) 10^3/uL PT (9.3-11.0) sec INR (0.9-1.1) APTT (21.0-27.5) sec Sodium (136-145) mmol/L Potassium (3.5-5.1) mmol/L Chloride (98-107) mmol/L Carbon Dioxide (21.0-32.0) mmol/L Anion Gap (3-11) mmol/L BUN (7-18) mg/dL Creatinine (0.55-1.02) mg/dL Estimated GFR/1.73 m2 (mL/min/1.73m2) Glucose (74-106) mg/dL Calcium (8.5-10.1) mg/dL Total Bilirubin (0.2-1.0) mg/dL AST (15-37) U/L ALT (14-59) U/L Alkaline Phosphatase (46-116) U/L Total Protein (6.4-8.2) g/dL Albumin (3.4-5.0) g/dL Lipase (73-393) U/L Cancelled COVID-19 Source Nasal/Nares Patient ABO/Rh A Positive PAWSS Have you Been Recently Intoxicated or Drunk Within the Last 30 days?: No Have you Ever Experienced Previous Episodes of Alcohol Withdrawal?: No Have you ever Experienced Withdrawal Seizures?: No Have you ever Experienced Delirium Tremens(DT)s?: No Have you ever undergone Alcohol Rehabilitation Treatment (i.e, inpt ot outpatient treatment programs)?: No Have you ever Experienced Blackouts?: No Have you ever Combined Alcohol with other Downers within the last 90 days?: No Have you ever Combined Alcohol with any other Substance of Abuse during the last 90 days?: No Result: 0
[2021-10-19] MEDS: fentaNYL 100 MCG/2 ML VIAL 50 MCG IVP (09:22)
[2021-10-19] MEDS: Normal Saline 500 ML 1000 ML IV (09:22)
--- NOTE | 2021-10-19 10:24 | NUR.NOTE ---
Nursing Note: Pt info given to care management for follow up with [facility] next week for Upper GI bleed. Amalia, ED
--- NOTE | 2021-10-27 09:47 | PDOC.ERCMACT ---
- If Service Date Differs Date of service: 10/27/21 Time of Service: 09:50 Care Management Activity Note Den is seen in the ED on 10/19/21 for an upper GI bleed. At the request of ED provider, CM coordinates a referral to [facility] to assist patient in obtaining an appointment for further evaluation and treatment. Of note is that the submission of the referral was delayed due to the referral form requiring the provider's signature, which could not be obtained until 10/26/21.
== END 2021-10-19 13:40 | disposition home or self-care (01) ==
PROVIDERS: Emergency Medicine; Emergency Provider Emergency Medicine; PCP Family Medicine
DX: K92.2 Gastrointestinal hemorrhage, unspecified (principal); Z20.822 Contact with and (suspected) exposure to COVID-19
CPT/HCPCS: 36415; 80053; 83690; 86850; 86900; 86901; 87635; 96361; 96374; 96375; 96376; 99284; 85025; 85610; 85730; 99285; J2405; J3010

== ENCOUNTER 2022-01-11 02:49 | Emergency (ER) | payer MEDICARE, SELFPAY ==
[2022-01-11] VITALS (9 sets, daily range): BP systolic 155–188; BP diastolic 111–122; PULSE 91–99; RESP 14–24; TEMP 37.1; O2SAT 100
--- NOTE | 2022-01-11 02:30 | RT.EKG_ITS ---
APPROVED REPORT Exam: Resting ECG Reason for Exam: nausea Patient Location: E HR:92 bpm ECG Measurements Heart Rate 92 AXIS NH 175 P 90 QRSd 78 QRS 50 QT 381 T 77 QTc 470 Conclusion Sinus rhythm...normal P axis, V-rate 60- 99 Consider anteroseptal infarct...Q >30mS, dimin R, V1-V2 Physician: no stemi
--- NOTE | 2022-01-11 02:45 | DI.CT_ITS ---
Exam(s) CT ABDOMEN PELVIS W EXAM: CT ABDOMEN PELVIS W CLINICAL HISTORY: vomiting, epigastric burning, previous peg tube. TECHNIQUE: Imaging Protocol: Axial computed tomography images with coronal and sagittal reformatted images were created and reviewed CONTRAST MATERIAL: Intravenous: Omnipaque 100cc Oral: None COMPARISON: CT CT CHEST PE CTA from 01/16/2021 FINDINGS: VISUALIZED LUNG BASES: No nodules nor pleural effusions evident. ABDOMEN: There is no ascites. LIVER: There are no focal hepatic lesions evident . GALLBLADDER/BILIARY: No obvious gallbladder pathology. CBD diameter upper normal. PANCREAS: No evidence of pancreatic mass nor dilatation of the pancreatic duct. Pancreatic duct diam eter measures 2.5 cm throughout its length. SPLEEN: Spleen is not enlarged. No obvious intrasplenic lesions. Splenic and portal veins are paten t. ADRENALS: There are no significant adrenal masses. KIDNEYS:The some cortical scarring in the left kidney noted. No cyst or solid renal masses. No calc ruth. No hydronephrosis. No hydroureter.. ABDOMINAL AORTA: Abdominal aorta is not enlarged. LYMPH NODES:There is no retroperitoneal nor paraaortic adenopathy. ABDOMINAL WALL: There is fat containing anterior abdominal wall midline hernia at the umbilicus. The re is no bowel within the hernia sac. GI: The inter tire wall of the colon is circumferentially thickened-edematous in appearance consisten t with a cadena colitis pattern. There is also diverticulosis in the sigmoid without evidence of obviou s acute diverticulitis. PELVIS: GI: No evidence of appendicitis. LYMPH NODES: There is no intrapelvic nor inguinal adenopathy. REPRODUCTIVE: Uterus is retroverted. URINARY BLADDER: No calculi nor obvious masses evident OSSEOUS: No significant osseous lesions. Chronic multilevel degenerative disc disease in the lumbar spine noted. Also scoliosis convex left. Also advanced osteoarthritic degenerative changes in both hips. IMPRESSION: 1. 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 No evidence of toxic megacolon. No perforation. There diverticuli in the sigmoid also seen but without evidence of obvious acute d iverticulitis. 2. Stomach and duodenum are somewhat dilated and exhibit thickened aranda. Recommend both upper and l ower endoscopy. 3. Fat containing umbilical hernia. No bowel loops therein. 4. No evidence of bowel obstruction. No ascites. RADIATION DOSE DELIVERED: Total DLP DATA REPOSITORY: All CT scans at this facility are submitted to the National Radiology Data Registry (NRDR) Dose Index Registry (DIR) with the [employer] (A[employer]). RADIATION OPTIMIZATION: All CT scans at this facility use at least one of these dose optimization te chniques: automated exposure control; mA and/or kV adjustment per patient size (includes targeted exa ms where dose is matched to clinical indication); or iterative reconstruction.
--- NOTE | 2022-01-11 02:49 | ED.GENADUL_ITS ---
Discharge Plan Disposition Patient Disposition: Home Condition: Good Discharge Details Clinical Impression: Colitis Primary Care Provider: Amber Kraus ED Provider: Ray May Home Meds and New Rx's Prescriptions: New amoxicillin-pot clavulanate 875-125 mg tablet 1 tab PO BID 7 Days Qty: 14 0RF No Action Spiriva Respimat 2.5 mcg/actuation mist 2 inh inhalation QAM Qty: 4 12RF ascorbic acid-ascorbate sodium 500 mg wafer 1 wafer PO DAILY fluoxetine 40 mg capsule 40 mg PO DAILY ropinirole 0.5 mg tablet 0.5 mg PO QHS Rx Instructions: administer 1-3 hours before bedtime hydrocodone-acetaminophen 10-325 mg tablet 1 tab PO QID PRN (Reason: Pain) Label Comments: TAKE ONE TABLET BY MOUTH FOUR TIMES A DAY NEEDED albuterol sulfate 90 mcg/actuation HFA aerosol inhaler 1 - 2 inh INHALATION Q4H PRN Label Comments: INHALE 1 TO 2 PUFFS EVERY 4 TO 6 HOURS NEEDED carbidopa-levodopa 25-250 mg tablet 1 tab PO BID Label Comments: TAKE ONE TABLET BY MOUTH TWICE A DAY ferrous gluconate 236 mg (27 mg iron) Tablet 236 mg PO DAILY levofloxacin 750 mg Tablet 750 mg PO Q48H Qty: 2 0RF Rx Instructions: Take first dose on 01/20/21 metoprolol succinate [Toprol XL] 50 MG tablet extended release 24 hr 50 mg PO DAILY Discharge Instructions Instructions: Colitis (ED) Additional Instructions: At this time your CAT scan shows evidence of colitis which is inflammation of the colon. This likely stems from a bacterial infection/irritation. Please take the antibiotic Augmentin as directed, it is been sent to your pharmacy on file. Please take the Zofran as needed for nausea. Stay well-hydrated. If you notice any worsening of your symptoms, or any new symptoms such as vomiting, diarrhea, fever, chills, shortness of breath, chest pain, numbness, weakness, or fainting , please return immediately to the emergency department for reevaluation. Please follow up with your primary care provider as soon as possible for reassessment and reevaluation. As always, it was a pleasure partici pating in your medical care today. Referrals: Amber Kraus [Primary Care Provider] - Medical Decision Making This is a 76-year-old female with a past medical history of hypertension, epilepsy, previous PEG tube after being in a coma, PTSD, COPD, who presents today for evaluation of vomiting and abdominal pain. Patient states that this evening she began having nausea and vomiting. She denies any blood. No diarrhea. She has a severe burning sensation in her epigastric region radiating up into her esophagus. She denies any chest pain otherwise though. She also admits to umbilical pain. In the very distant past she did have a PEG tube while she was in a coma but that has been out for years. She denies any other abdominal surgeries. No other complaints at this time. Exam demonstrates a well-appearing female, mild abdominal tenderness throughout, subjectively in the left upper quadrant, but on exam throughout. Umbilical hernia is reducible and not erythematous. No signs of an acute incarcerated or strangulated hernia. Differential is highest for GERD with potential obstruction secondary to her previous surgeries. We will get a CT scan, treat with antiemetics and antacid medications, gently rehydrate, monitor closely and reassess. Symptoms appear inconsistent with ACS however out of an abundance of precaution EKG and troponin will be ordered. EKG shows normal sinus with no signs of STEMI or other significant abnormality. 5:08 AM Laboratory work-up shows evidence of mildly elevated white count. Remainder of her work-up is otherwise stable. Troponin normal. EKG stable. CT scan shows evidence of mild pancolitis, colonic diverticulosis, and a small hiatal hernia. No obstruction. On reassessment patient is feeling completely better. She is able to tolerate p.o., her abdominal pain is completely subsided, she feels well and would like to go home. Patient will be started on Augmentin. Patient will be given Zofran for home use. Of note patient does state that she has an allergy to amoxicillin however upon further discussion with the patient she did just fine with the amoxicillin but she got a mild yeast infection. Alternatively she has said that she has taken Augmentin before without getting any yeast infection. Will prescribe Augmentin. I have extensively reviewed the treatment plan and discharge instructions with the patient. I have addressed all patient concerns at this time. The patient was made aware of what symptoms to monitor for that would warrant a return to the emergency department. Discussed the plan with the patient, they demonstrate verbal understanding and agreement with our assessment and plan at this time. The documentation in this chart was dictated using [employer] dictation software. Please excuse any dictation errors. FINDINGS: Lungs: Lung bases are clear. Diaphragm: Small hiatus hernia. Liver: Normal. No mass. Gallbladder and bile ducts: Normal. No calcified stones. No ductal dilation. Pancreas: Normal. No ductal dilation. Spleen: Normal. No splenomegaly. Adrenal glands: Normal. No mass. Kidneys and ureters: Bilateral renal scarring. No stones or hydronephrosis. There is a stable 3 mm calcification in the left renal lower pole cortex. Stomach and bowel: Small bowel is normal in caliber. Colonic diverticula. Moderate-sized stool ball in the rectum. There is colonic wall thickening extending from the cecum to the distal sigmoid consistent with colitis. Appendix: Normal. Intraperitoneal space: Unremarkable. No free air. No significant fluid collection. Vasculature: Atherosclerotic aorta without aneurysm. There is moderate stenosis of the proximal right external iliac artery due to atherosclerotic plaque. Lymph nodes: Unremarkable. No enlarged lymph nodes. Urinary bladder: Unremarkable as visualized. Reproductive: Unremarkable as visualized. Bones/joints: Lumbar levoscoliosis and multilevel degenerative changes in the spine. Moderate to severe degenerative changes in the hips. Soft tissues: Small fat containing umbilical hernia. IMPRESSION: Pancolitis. Colonic diverticulosis. Small hiatus hernia. Thank you for allowing us to participate in the care of your patient. Dictated and Authenticated by: Joanna Alvarado MD 01/11/2022 4:47 AM Eastern Time ([place] & [place]) Sign Out No HPI General Date/Time Provider Initiated Documentation: 01/11/22 03:31 . HPI Narrative: This is a 76-year-old female with a past medical history of hypertension, epilepsy, previous PEG tube after being in a coma, PTSD, COPD, who presents today for evaluation of vomiting and abdominal pain. Patient states that this evening she began having nausea and vomiting. She denies any blood. No diarrhea. She has a severe burning sensation in her epigastric region radiating up into her esophagus. She denies any chest pain otherwise though. She also admits to umbilical pain. In the very distant past she did have a PEG tube while she was in a coma but that has been out for years. She denies any other abdominal surgeries. No other complaints at this time. Related Data Home Medications Medication Instructions Recorded Confirmed metoprolol succinate 50 mg 50 mg PO DAILY 09/15/17 01/11/22 tablet,extended release 24 hr (Toprol XL) ascorbic acid-ascorbate sodium 1 wafer PO DAILY 07/12/20 01/11/22 (vitamin C) 500 mg oral wafer fluoxetine 40 mg capsule 40 mg PO DAILY 07/12/20 01/11/22 ropinirole 0.5 mg tablet 0.5 mg PO QHS 07/12/20 01/11/22 albuterol sulfate 90 mcg/actuation 1 - 2 inh inhalation Q4H PRN 01/16/21 01/11/22 aerosol inhaler carbidopa 25 mg-levodopa 250 mg 1 tab PO BID 01/16/21 01/11/22 tablet ferrous gluconate 236 mg (27 mg 236 mg PO DAILY 01/16/21 01/11/22 iron) tablet hydrocodone 10 mg-acetaminophen 1 tab PO QID PRN Pain 01/16/21 01/11/22 325 mg tablet levofloxacin 750 mg tablet 750 mg PO Q48H #2 tabs 01/18/21 01/11/22 tiotropium bromide 2.5 2 inh inhalation QAM #4 grams 03/20/21 01/11/22 mcg/actuation mist for inhalation (Spiriva Respimat) amoxicillin 875 mg-potassium 1 tab PO BID 7 days #14 tabs 01/11/22 clavulanate 125 mg tablet Previous Rx's Medication Instructions Recorded levofloxacin 750 mg tablet 750 mg PO Q48H #2 tabs 01/18/21 tiotropium bromide 2.5 2 inh inhalation QAM #4 grams 03/20/21 mcg/actuation mist for inhalation (Spiriva Respimat) amoxicillin 875 mg-potassium 1 tab PO BID 7 days #14 tabs 01/11/22 clavulanate 125 mg tablet Allergies Allergy/AdvReac Type Severity Reaction Status Date / Time Sulfa (Sulfonamide Allergy Severe Anaphylaxsi Unverified 01/11/22 02:48 Antibiotics) s meperidine HCl [From Demerol] Allergy Intermediate Contraindicated, Unverified 01/11/22 02:48 seizures phenytoin sodium Allergy Intermediate Contraindicated, Unverified 01/11/22 02:48 [From Dilantin] seizures phenytoin sodium extended Allergy Intermediate Contraindicated, Unverified 01/11/22 02:48 [From Dilantin] seizures amoxicillin Allergy Verified 01/11/22 02:48 diazepam [From Valium] Allergy Verified 01/11/22 02:48 hydromorphone [From Dilaudid] Allergy Verified 01/11/22 02:48 midazolam HCl [From Versed] AdvReac Intermediate Psychosis Unverified 01/11/22 02:48 General Stated Complaint: Nausea/Vomit/Diar CRISTO: 3 Review of Systems All systems reviewed & are unremarkable except as noted in HPI and below PFSH All Active Problems (Updated 01/11/22 @ 05:05 by Ray May DO) Colitis (Acute) Hematemesis (Acute) Acute anemia (Acute) NSTEMI (non-ST elevated myocardial infarction) (Acute) Current smoker (Acute) Narcotic withdrawal (Acute) Nausea (Acute) Hypertension (Acute) Anemia (Acute) Medical History Abdominal pain Cachexia Chest pain Chronic, continuous use of opioids COPD with acute exacerbation Fatigue GI bleed Helicobacter pylori gastritis Hx of drug withdrawal syndrome Late effect of pelvic fracture Loss of vision Movement disorder Multifocal pneumonia PTSD (post-traumatic stress disorder) Respiratory failure with hypoxia Temporal lobe epilepsy Vitamin D deficiency Social History Smoking/Tobacco Use Status: Never Smoking risk assessment performed?: Yes Alcohol Intake: current Alcohol Intake frequency: holidays/special occasions only Drug use: Daily Substance use type: marijuana Details: smokes the marijuana - No Tobacco use Do you feel safe at home: Yes Do you feel safe in your relationship?: Yes Exam Narrative Exam Narrative: 1.Const: Well-nourished, Well-developed, appearing stated age 2.Eyes: PERRL, no conjunctival injection, and symmetrical lids. 3.ENT: Atraumatic external nose and ears. Dry MM. Neck: Symmetric, trachea midline, No thyromegaly. 4.CVS: +S1/S2, No murmurs or gallops. Peripheral pulses 2+ and equal in all extremities. Brisk capillary refill in all extremities. 5.RESP: Unlabored respiratory effort. Clear to auscultation bilaterally. No wheezes rales or rhonchi 6.GI: Soft, mild distention, mild/generalized tenderness throughout. Periumbilical hernias noted. It is easily reducible, it is slightly tender but not erythematous. Not solid or firm. No redness. Moderate epigastric d iscomfort on palpation. No guarding or rebound. 7.MSK: Normocephalic/Atraumatic, Extremities w/o deformity or ttp No cyanosis or clubbing, Normal movement of all extremities 8.Skin: Warm, Dry. No rashes or lesions. 9.Neuro: apparel rental clerk II-XII grossly intact. Sensation grossly intact, no focal neurologic deficits. 10.Psych: (AAO) x3. Appropriate mood and affect Course Vital Signs Vital signs: Vital Signs Temperature 37.1 C 01/11/22 02:38 Pulse 99 H 01/11/22 02:38 Respiratory Rate 16 01/11/22 02:38 Blood Pressure 155/122 H 01/11/22 02:38 Pulse Oximetry 100 01/11/22 02:38 Temperature 37.1 C 01/11/22 02:38 Pulse 99 H 01/11/22 02:38 Respiratory Rate 16 01/11/22 02:38 Respiratory Effort 01/11/22 02:42 Blood Pressure 155/122 H 01/11/22 02:38 Pulse Oximetry 100 01/11/22 02:38 Oxygen Delivery Method Room Air 01/11/22 02:38 Oxygen Flow Rate 0 01/11/22 02:38 Pain Level 8 01/11/22 02:38
[2022-01-11] MEDS: Normal Saline 1,000 ML 1000 ML IV (02:51)
[2022-01-11] MEDS: Pantoprazole 40 MG VIAL IVP (02:56)
[2022-01-11] MEDS: Ondansetron 4 MG/2 ML VIAL IVP (02:56)
[2022-01-11 02:59] LABS: Abs Immature Grans 0.04 10^3/uL (0.0-0.06); Absolute Basophil Count 0.04 10^3/uL (0.0-0.2); Absolute Eosinophil Count 0.15 10^3/uL (0.0-0.7); Absolute Lymphocyte Count 1.66 10^3/uL (1.2-3.4); Absolute Monocyte Count 0.81 10^3/uL (0.1-0.8); Absolute Neutrophil Count 9.91 10^3/uL (1.2-6.7); Basophils % 0.3; Eosinophils % 1.2; HCT 36.3 % (36.0-46.0); HGB 11.7 g/dL (11.2-15.7); Immature Grans % 0.3; Lymphocytes % 13.2; MCH 27.9 pg (27.0-33.0); MCHC 32.2 % (32.0-36.0); MCV 86 fL (80-95); MPV 8.7 fL (8.0-11.0); Monocytes % 6.4; Neutrophils % 78.6; Platelet Count 350 10^3/uL (130-400); RDW 15.9 % (11.7-14.6); RDW-SD 50.8 fL; WBC 12.61 10^3/uL (4.4-10.8)
[2022-01-11 03:22] LABS: ALT 11 U/L (14-59); AST 22 U/L (15-37); Alkaline Phosphatase 71 U/L (46-116); Anion Gap 10.8 mmol/L (3-11); BUN 25 mg/dL (7-18); Bilirubin, Total 0.3 mg/dL (0.2-1.0); CO2 27.2 mmol/L (21.0-32.0); Calcium 9.5 mg/dL (8.5-10.1); Chloride 102 mmol/L (98-107); Estimated GFR 57.66 (mL/min/1.73m2); Glucose 155 mg/dL (74-106); Lipase 217 U/L (73-393); Potassium 3.5 mmol/L (3.5-5.1); Sodium 140 mmol/L (136-145); Total Protein 8.3 g/dL (6.4-8.2); Troponin I < 50 ng/L (<or=60)
--- OUTSIDE RECORDS SUMMARY | 2022-01-11 03:23 | XMS_ITS | Encounter Summary ---
:1945 Author Organization [facility] [place] [address] Care Team Providers Name Role Phone Amber Krasu MD Primary Care Provider Reason for Referral Consultation (Urgent) - Closed Specialty Diagnoses / Procedures Referred By Contact Refer red To Contact Gastroenterology Diagnoses Upper GI bleed Acute upper GI bleed, referral for further evaluation [facility] Endoscopy 4t Procedures EGD Sedation: IV Sedation Timeframe: within 7 Days -- A. Indication: Bleeding - recurrent UGIB in the setting of feeding tube scar (?), seen 10/19 w/hematemesis but resolved/was stable and on PPI MD [facility] This procedure should be performed with: Any Endoscopist [address] [place] [address] [place] [id number] Referral ID Status Reason Start Date Expiration Date Visits V isits Requested Authorized [id number] Closed Consult, 11/01/2021 11/01/2022 1 1 Test & Treat Encounter Details Date Type Department Care Team Description 11/01/2021 Transcribe Orders eDH Incoming Referra Westley Vasquez Upper GI bleed [phone] MD Isatu [address] [place] [address] [address] [place], [place] [id number] (Wo rk) Social History Tobacco Use Types Packs/Day Years Used Date Smoking Tobacco: Some Days Cigarettes Smokeless Tobacco: Never Comments: quit at age 43 Alcohol Use Standard Drinks/Week Comments Yes 0 (1 standard drink = 0.6 oz pure alcoho l) Occasional Sex Assigned at Date Recorded Not on file documented as of this encounter Plan of Treatment Scheduled Referrals Name Type Priority Associated Order Schedule Diagnoses Referral to Outpatient Routine Upper GI bleed Ordered: Gastroenterology Referral 11/01/2021 documented as of this encounter Visit Diagnoses Diagnosis Upper GI bleed Hemorrhage of gastrointestinal tract, un specified documented in this encounter Care Teams Electrical Foreman Relationship Specialty Start Date End Date Amber Kraus MD PCP - General 04/19/10 [address] [place] [address] documented as of this encounter
--- OUTSIDE RECORDS SUMMARY | 2022-01-11 03:23 | XMS_ITS | Encounter Summary ---
:1945 Author Organization [facility] [place] [address] Care Team Providers Name Role Phone Amber Kraus MD Primary Care Provider Reason for Visit Reason Comments Post Op S/p vitrectomy, mechanical p ars plana approach OS 07/30/2021 Encounter Details Date Type Department Care Team Description 07/31/2021 Office Visit Ophthalmology at [facility] Urvashi Cookocated IOL [facility] MD Sourav (intraocular lens), [facility] [place] [address] [place] [address] [place], [place] [address] Social History Tobacco Use Types Packs/Day Years Used Date Smoking Tobacco: Some Days Cigarettes Smokeless Tobacco: Never Comments: quit at age 43 Alcohol Use Standard Drinks/Week Comments Yes 0 (1 standard drink = 0.6 oz pure alcoho l) Occasional Sex Assigned at Date Recorded Not on file documented as of this encounter Progress Notes Sourav Valera MD - 07/31/2021 8:00 AM EDT ASSESSMENT/PLAN: 1. Dislocated IOL (intraocular lens), left sp IOL xc Visual Acuity Visual Acuity (Snellen - Linear) Right Left Dist sc 20/40 HM Dist ph sc NI Tonometry Tonometry (Applanation, 8:10 AM) Right Left Pressure 18 21 Den Han is here for POD#1 visit. The retina is attached, the IOP is normal. Post-op instructions reviewed. Instructions (operated eye only): Pred Forte QID Vigamox QID Dexacine ointment QID PRN No atropine Continue the drops (if any) you had been taking prior to surgery (e.g glaucoma) Positioning: none Follow up: 1 week for DFE/POW#1 exam of the operated eye only documented in this encounter Plan of Treatment Not on filedocumented as of this encounter Visit Diagnoses Diagnosis Dislocated IOL (intraocular lens), left sp IOL xc documented in this encounter Care Teams Fly Frame Tender Relationship Specialty Start Date End Date Amber Kraus MD PCP - General 04/19/10 [address] [place] [address] documented as of this encounter
--- OUTSIDE RECORDS SUMMARY | 2022-01-11 03:23 | XMS_ITS | Encounter Summary ---
:1945 Author Organization [facility] [address] Care Team Providers Name Role Phone Amber Kraus MD Primary Care Provider Reason for Visit Reason Onset Date Comments Other 08/09/2021 Encounter Details Date Type Department Care Team Description 08/09/2021 Telephone Ophthalmology at [facility] Sophie Valera, Other [facility] [place] [address] [facility] [phone] [place], [place] [address] (Wo rk) Social History Tobacco Use Types Packs/Day Years Used Date Smoking Tobacco: Some Days Cigarettes Smokeless Tobacco: Never Comments: quit at age 43 Alcohol Use Standard Drinks/Week Comments Yes 0 (1 standard drink = 0.6 oz pure alcoho l) Occasional Sex Assigned at Date Recorded Not on file documented as of this encounter Miscellaneous Notes Telephone Encounter - Zabrina Welch COT - 08/09/2021 12:29 PM EDT Patient was in yesterday for HCK and the dermatology technician was going to give patient a pirate patch. It wasforgotten and is asking if one could be mailed to them. Yes, will ask team to mail to patient. documented in this encounter Plan of Treatment Not on filedocumented as of this encounter Visit Diagnoses Not on filedocumented in this encounter Care Teams Chief Environmental Commitment Officer Relationship Specialty Start Date End Date Amber Krasu MD PCP - General 04/19/10 [address] [place] [address] documented as of this encounter
--- OUTSIDE RECORDS SUMMARY | 2022-01-11 03:23 | XMS_ITS | Encounter Summary ---
:1945 Author Organization [facility] [place] [address] Care Team Providers Name Role Phone Amber Kraus MD Primary Care Provider Reason for Visit Reason Onset Date Comments Questions 07/31/2021 Post op questions Encounter Details Date Type Department Care Team Description 07/31/2021 Telephone Ophthalmology at [facility] Sophie Valera, Adis (Post op [facility] Gilma Benjamin MD questions/) [place] [address] [facility] [phone] [place], [place] [address] Social History Tobacco Use Types Packs/Day Years Used Date Smoking Tobacco: Some Days Cigarettes Smokeless Tobacco: Never Comments: quit at age 43 Alcohol Use Standard Drinks/Week Comments Yes 0 (1 standard drink = 0.6 oz pure alcoho l) Occasional Sex Assigned at Date Recorded Not on file documented as of this encounter Miscellaneous Notes Telephone Encounter - Zabrina Welch COT - 07/31/2021 1:06 PM EDT calling to get post op drop instructions. Given per progress note. PF, Ket and Dexacine madyson qid OS. NO atropine/red caps, but can save. documented in this encounter Plan of Treatment Not on filedocumented as of this encounter Visit Diagnoses Not on filedocumented in this encounter Care Teams Drill Hand Relationship Specialty Start Date End Date Amber Kraus MD PCP - General 04/19/[address] [place] [address] documented as of this encounter
--- OUTSIDE RECORDS SUMMARY | 2022-01-11 03:23 | XMS_ITS | Encounter Summary ---
:1945 Author Organization [facility] [place] [address] Care Team Providers Name Role Phone Amber Kraus MD Primary Care Provider Reason for Visit Reason Comments Post Op Encounter Details Date Type Department Care Team Description 08/08/2021 Office Visit Ophthalmology at [facility] Sophie Valera, Dislocated IOL (intraocular lens), left sp IOL xc; [facility] MD Sourav Advanced dry age-related macular degener ation of both [place] [address] [place] [address] [place], [place] [address] Social History Tobacco Use Types Packs/Day Years Used Date Smoking Tobacco: Some Days Cigarettes Smokeless Tobacco: Never Comments: quit at age 43 Alcohol Use Standard Drinks/Week Comments Yes 0 (1 standard drink = 0.6 oz pure alcoho l) Occasional Sex Assigned at Date Recorded Not on file documented as of this encounter Progress Notes Sourav Valera MD - 08/08/2021 7:45 AM EDT ASSESSMENT/PLAN: Visual Acuity Visual Acuity (Snellen - Linear) Right Left Dist sc 20/80 CF @ 5' Dist ph sc NI NI Near cc 20/20 20/800-1 Eccentric fixation OS @ D&N Tonometry Tonometry (Applanation, 8:07 AM) Right Left Pressure 15 11 1. Dislocated IOL (intraocular lens), left sp IOL xc 2. 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 Dislocated IOL OS POW1. Doing well. The IOP is good, the retina attached.The warning symptoms of RD were discussed. The nylon suture was removed today 2. dAMD OU It is the #1 cause of blurriness given the GA and TOAN of <20/300 Eye drops: PF BID until the bottle empties. Stop Vigamox Dexacine madyson QID PRN Positioning: none Follow up in 4-6 weeks HCK for DFE, OCT OU documented in this encounter Miscellaneous Notes Addendum Note - Sourav Valera MD - 08/08/2021 7:45 AM EDT Addended by: SOURAV VALERA on: 08/08/2021 08:45 AM Modules accepted: Orders documented in this encounter Plan of Treatment Not on filedocumented as of this encounter Visit Diagnoses Diagnosis Dislocated IOL (intraocular lens), left sp IOL xc Advanced dry age-related macular degener ation of both eyes with subfoveal involvement documented in this encounter Care Teams High Lift Driver Relationship Specialty Start Date End Date Amber Kraus MD PCP - General 04/19/[address] [place] [address] documented as of this encounter
--- OUTSIDE RECORDS SUMMARY | 2022-01-11 03:24 | XMS_ITS | Encounter Summary ---
:1945 Author Organization [facility] [place] [address] Care Team Providers Name Role Phone Amber Kraus MD Primary Care Provider Reason for Visit Reason Onset Date Comments Follow-up 12/01/2013 televox cancellation Encounter Details Date Type Department Care Team Description 12/01/2013 Telephone Orthopaedics at [facility] Rafi Lundy Follow-up (televox [facility] D rive cancellation) [place] [address] Social History Tobacco Use Types Packs/Day Years Used Date Smoking Tobacco: Some Days Cigarettes Comments: quit at age 43 Alcohol Use Standard Drinks/Week Comments Yes 0 (1 standard drink = 0.6 oz pure alcoho l) Occasional Sex Assigned at Date Recorded Not on file documented as of this encounter Miscellaneous Notes Telephone Encounter - Raif Lundy - 12/02/2013 2:06 PM EDT Cancellation confirmed. Telephone Encounter - Rafi Lundy - 12/02/2013 8:24 AM EDT I called [facility], the facility where she went after this patients trauma and left a message withthe health care coach as to what other contact information she may have for this patient and where the patient was discharged to. Checking to see if she went to longterm or her own home or that of a relative. Expecting a call back today. Telephone Encounter - Rafi Lundy - 12/02/2013 7:58 AM EDT 2nd message left to confirm the televox cancellation. Telephone Encounter - Rafi Lundy - 12/01/2013 8:34 AM EDT Message at home number to call to verify that patient wants to cancel 12/03/13 appointment with Sweetie WILDER per Televox cancellation list. documented in this encounter Plan of Treatment Not on filedocumented as of this encounter Visit Diagnoses Not on filedocumented in this encounter Care Teams Food And Drug Inspector Relationship Specialty Start Date End Date Amber Kraus MD PCP - General 04/19/10 [address] [place] [address] documented as of this encounter
--- OUTSIDE RECORDS SUMMARY | 2022-01-11 03:24 | XMS_ITS | Encounter Summary ---
:1945 [place] [address] Care Team Providers Name Role Phone Amber Kraus MD Primary Care Provider Encounter Details Date Type Department Care Team Description 01/16/2021 External Results 1 [facility] [place] [address] Social History Tobacco Use Types Packs/Day Years Used Date Smoking Tobacco: Some Days Cigarettes Smokeless Tobacco: Never Comments: quit at age 43 Alcohol Use Standard Drinks/Week Comments Yes 0 (1 standard drink = 0.6 oz pure alcoho l) Occasional Sex Assigned at Date Recorded Not on file documented as of this encounter Plan of Treatment Not on filedocumented as of this encounter Procedures Procedure Name Priority Date/Time Associated Diagnosis Comme nts ECG SCAN Routine 01/16/2021 Results for thi s procedure are in the resu lts section. documented in this encounter Results Scan Doc: ECG (01/16/2021) Narrative This result has an attachment that is no t available. Historical Provider MEDIA MGR SCAN EXT ORDR/RSLT documented in this encounter Visit Diagnoses Not on filedocumented in this encounter Care Teams Electronics Engineer Relationship Specialty Start Date End Date Amber Kraus MD PCP - General 04/19/10 [address] [place] [address] documented as of this encounter
--- OUTSIDE RECORDS SUMMARY | 2022-01-11 03:24 | XMS_ITS | Encounter Summary ---
:1945 Author Organization [facility] [address] Care Team Providers Name Role Phone Amber Kraus MD Primary Care Provider Reason for Visit Reason Onset Date Comments Advice Only 10/30/2010 Encounter Details Date Type Department Care Team Description 10/30/2010 Telephone Cardiology at [facility] Barron Navarro MD Advice Only One [facility] [place] [address] CARDIOLOGY DEPT. [phone] [place], [place] [address] (Wo rk) Social History Tobacco Use Types Packs/Day Years Used Date Smoking Tobacco: Former Cigarettes Comments: quit at age 43 Sex Assigned at Date Recorded Not on file documented as of this encounter Miscellaneous Notes Telephone Encounter - Gala Martinez - 10/30/2010 10:[address] Tinsley would like to speak with you regarding this patient. He is on vacation until Friday. Please call. Thanks! documented in this encounter Plan of Treatment Not on filedocumented as of this encounter Visit Diagnoses Not on filedocumented in this encounter Care Teams Cash Management Associate Relationship Specialty Start Date End Date Amber Kraus MD PCP - General [birth year]/19/10 [address] [place] [address] documented as of this encounter
--- OUTSIDE RECORDS SUMMARY | 2022-01-11 03:24 | XMS_ITS | Encounter Summary ---
:1945 Author Organization [facility] Address [facility] [place] [address] Care Team Providers Name Role Phone Amber Kraus MD Primary Care Provider Encounter Details Date Type Department Care Team Description 07/30/2021 Surgery Main Operating Room JAIME Valera, [facility] MD cirilo [facility] ([facility] [place] [address] [place] [address] [phone] Social History Tobacco Use Types Packs/Day Years Used Date Smoking Tobacco: Some Days Cigarettes Smokeless Tobacco: Never Comments: quit at age 43 Alcohol Use Standard Drinks/Week Comments Yes 0 (1 standard drink = 0.6 oz pure alcoho l) Occasional Sex Assigned at Date Recorded Not on file documented as of this encounter Last Filed Vital Signs Vital Sign Reading Time Taken Comments Blood Pressure 137/82 07/30/2021 9:30 AM EDT Pulse 110 07/30/2021 7:13 AM EDT Temperature 37.3 ??C (99.1 ??F) 07/30/2021 9:04 AM EDT Respiratory Rate 16 07/30/2021 9:30 AM EDT Oxygen Saturation 98% 07/30/2021 9:30 AM EDT Inhaled Oxygen Concentration - - Weight 40 kg (88 lb 1.6 oz) 07/30/2021 7:13 AM EDT Height 162.6 cm (5' 4) 07/30/2021 7:13 AM EDT Body Mass Index 15.12 07/30/2021 7:13 AM EDT documented in this encounter Discharge Instructions Patient InstructionsSourav Valera MD - 07/30/2021 9:12 AM EDT DROPS: Operated eye: Please keep the patch on the operated eye and do NOT use any eye drops. You will startthem right after your post-op day 1 exam. Non- operated eye: Please continue all the eye drops (if any) as previously instructed POSITIONING: No special positioning WARNING SYMPTOMS People frequently feel mild-moderate discomfort that improves within a few days. Eyelid edema and redness are also common for a few weeks. However, if you feel new pain, tenderness, light sensitivity and vision loss please call the [facility] telephone center ([phone]) immediately and speak to the educational therapist service promoter salesperson. PAIN May use over the counter pain medications as needed: Tylenol 1000mg- up to 3 times as needed daily alternating with ibuprofen 600mg up to 3 times per day as needed EYE SHIELD: Keep eye shield on the eye overnight. OTHERS It is ok to walk or do most of the simple daily activities at home (eg watching TV, reading with theother eye) Avoid high impact exercise or activities (e.g. weight lifting, running) for at least 1 week. Avoid lifting heavy weights for 1 week (i.e. Not more than 5-10 lbs) Avoid straining, coughing, squeezing etc as much as possible FLIGHTS: Do NOT take any flights until you discuss it with your doctor. There's severe risk for the eye if you're in areas of high altitude (flight, very tall mountains etc) documented in this encounter Medications at Time of Discharge Medication Sig Dispensed Refills Start Date End Date rOPINIRole (Requip) 0.5 Take 0.5 mg by mouth 0 mg Tablet nightly. HYDROcodone-acetaminophen TAKE ONE TABLET BY 0 (Whiting) 10-325 mg Tablet MOUTH FOUR TIMES A DAY NEEDED METOPROLOL TARTRATE ORAL Take by mouth. 0 carbidopa-levodopa Take 1 tablet by 0 09/20/2010 (SINEMET) 25-250 mg per mouth every evening. tablet morphine (AVINZA) 30 mg Take 30 mg by mouth 0 08/08/2021 24 hr capsule daily. documented as of this encounter H&P Notes Sourav Valera MD - 07/30/2021 7:20 AM EDT Patient Name: Den Han Patient Age: 75 y.o. Birthdate: 1945 Admit date: 07/30/2021 Attending Physician: Sourav Valera MD History and Physical Reviewed. No changes noted. Ok to proceed with eye surgery as planned. Sourav Valera MD, PhD Construction Manager of Ophthalmology Diseases of the Retina and Vitreous documented in this encounter Miscellaneous Notes Op Note - Sourav Valera MD - 07/30/2021 8:07 AM EDT [facility] [place] Patient Name: Den Han : [id number] MR#: [id number] Case Date: 07/30/2021 Surgeon: Surgeon(s) and Role: * Sourav Valera MD - Primary * Lulu Nunes MD - Resident Preoperative diagnosis: Dislocated IOL left eye Postoperative diagnosis: Dislocated IOL left eye Procedure(s) (LRB): VITRECTOMY, MECHANICAL PARS PLANA APPROACH (WRVU 12.13) (Left) REMOVAL IMPLANTED MATERIAL, POSTERIOR SEGMENT, INTRAOCULAR (WRVU 12.25) (Left) IOL INSERTION, SECONDARY (WRVU 9.98) (Left) Anesthesia: MAC Estimated Blood Loss: * No values recorded between 07/30/2021 8:07 AM and 07/30/2021 8:56 AM * Specimens removed during surgery: None Drains: * No LDAs found * Surgical Closure: Primary Closure - skin incision is completely closed without any wires, gina, drains or other devices Disposition: aroused from sedation, and taken to the recovery room in a stable condition Condition: doing well without problems (Please see the Surgical Encounter Summary for any Implant and Specimen details pertinent to this patient.) HPI/Surgical Indications: Blurred vision due to dislocated intraocular lens, left eye Procedure Description: The patient was brought to the operative suite at [place] [facility] where a time-out was done to confirm correct eye, correct patient, and correct procedure. The patient was sedated and a peribulbar block of 1:1 lidocaine2% and marcaine 0.75% was administered. The same eye was prepped and draped in the normal sterile fashion for intraocular surgery and a wire lid speculum was used throughout the case to retract the eyelids. Using the Fred 25-gauge vitrectomy system, trocars were placed in the inferotemporal, superotemporal and superonasal quadrants approximately 4 mm from the limbus. An infusion cannula was placed in theinferotemporal quadrant and its position was confirmed by direct visualization with the light pipe before it was turned on. Using the vitrector and the light pipe, the eye was entered and close examination revealed dislocated, one-piece intraocular lens. A core vitrectomy was performed. The vitreous base was shaved while the child life assistant was depressing thesclera. A superior clear corneal incision was created with 2.4mm keratome. Using the soft tip canulaand the max-mission worker forceps the IOL was brought to the anterior chamber that was previously filled with Viscoat. The lens optic was cut and externalized (pacman IOL removal). Viscoat was injected into the anterior chamber that was later removed at the end of the case. A toric marker was used to abhay the conjunctiva on the horizontal meridian. Using a cartridge the 21.0 D CTLucia 602 was injected into the anterior chamber. The sclera was marked on the horizontal meridian 3mmHg posterior to the limbus and a scleral tunnel was created with a 30GTSK needle temporally. Usingthe max-mission worker forceps the temporal IOL haptic was loaded into the bore of the TSK needle, externalized through the sclera and the conjunctiva and diathermized using the low power diathermy (Yamane technique). The bulb on the tip of the haptic was buried under the conjunctiva. Similar steps were repeated temporally nasally to allow intrascleral fixation of the trailing haptic. Attention was placed onthe IOL optic and was found to be well-centered into the visual axis and the pupil. During the surgery the corneal epithelium became edematous and had to be scraped off to allow bettervisualization of the intraocular structures Each of the trocars was removed sequentially, the sclerotomies were closed with 6-0 plain gut sutureand the eye was left adequately pressurized, air and watertight. Subconjunctival injection of cefazolin (100mg/0.3ml) and dexamethasone (2mg/0.5ml) as well as a peribulbar injection of marcaine 0.75% wa s given. A drop of vigamox and antibiotic ointment were placed in the eye followed by a patch and shield. The patient was aroused from sedation and brought to the recovery room in stable condition.Theyhave follow up in the retina clinic in 1 day. Surgical Infection Prevention Bundle Used? No Attestation: Case Date: 07/30/2021 I performed this procedure without the involvement of a resident. 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 IOL INSERTION, SECONDARY 07/30/2021 7:46 AM Dislocated IOL (WRVU 9.98) EDT (intraocular lens), posterior, left 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 REMOVAL IMPLANTED MATERIAL, 07/30/2021 7:46 AM Disloca milli IOL POSTERIOR SEGMENT, EDT (intraocular lens), INTRAOCULAR (WRVU 12.25) posteri or, left 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 VITRECTOMY, MECHANICAL PARS 07/30/2021 7:46 AM Disloca milli IOL PLANA APPROACH (WRVU 12.13) EDT (intraocular lens), posterior, left 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 REMOVAL IMPLANTED MATERIAL, Routine 07/30/2021 6:20 AM Disloca milli IOL POSTERIOR SEGMENT, EDT (intraocular lens), INTRAOCULAR posterior, left 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 VITRECTOMY, MECHANICAL PARS Routine 07/30/2021 6:20 AM Disloca milli IOL PLANA APPROACH EDT (intraocular lens), posterior, left 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 Unknown MEDIA MGR SCAN EXT ORDR/RSLT documented in this encounter Visit Diagnoses Diagnosis Dislocated IOL (intraocular lens), poste rior, left Advanced dry age-related macular degener ation of both eyes with subfoveal involvement Dislocated IOL (intraocular lens), poste rior, left Advanced dry age-related macular degener ation of both eyes with subfoveal involvement documented in this encounter Administered Medications Inactive Administered Medications - up to 3 most recent administrations Medication Order MAR Action Action Date Dose Rate Site acetaminophen (Tylenol) tablet Given 07/30/2021 7:22 AM EDT 1,00 0 mg 1,000 mg 1,000 mg, Oral, ONCE, 1 dose, On Fri07/30/21 at 0730, Day of Surgery (Day of Procedure) atropine (Isopto Atropine) 1 % solution 1 Given 07/30/2021 7:40 AM EDT 1 drop drop 1 drop, Left Eye, EVERY 5 MIN, 3 doses, First dose on Fri07/30/21 at 0730, Last dose on Fri07/30/21 at 0740, Day of Surgery (Day of Procedure), Routine Given 07/30/2021 7:35 AM EDT 1 drop Given 07/30/2021 7:24 AM EDT 1 drop balanced salt (BSS PLUS) Given 07/30/2021 8:18 AM 1 Bottle 19- Surgical Site irrigation solution EDT ONCE PRN, Starting on Fri07/30/21 at 0818, Until Fri07/30/21 at 1211, Intra-Operative (Intra-Procedure), Routine balanced salt (BSS) Given 07/30/2021 8:18 AM 2 Bottles 19- Surgical Site irrigation solution EDT ONCE PRN, Starting on Fri07/30/21 at 0818, Until Fri07/30/21 at 1211, Intra-Operative (Intra-Procedure), Routine BUpivacaine (pf) (Marcaine) Given 07/30/2021 8:08 AM 1.5 mLs 19- Surgical Site (7.5 mg/mL) 0.75% injection EDT ONCE PRN, Starting on Fri07/30/21 at 0755, Until Fri07/30/21 at 1211, Intra-Operative (Intra-Procedure), Routine Given 07/30/2021 7:55 AM EDT 3 mLs 19- S urgical Site ceFAZolin (Ancef) injection Given 07/30/2021 8:20 AM EDT 100 mg 19- S urgical Site ONCE PRN, Starting on Fri07/30/21 at 0820, Until Fri07/30/21 at 1211, Intra-Operative (Intra-Procedure), Routine chondroitin-sodium hyaluronate Given 07/30/2021 8:20 AM EDT 0.5 mLs Left Eye (Viscoat) 4-3 % (40-30 mg/mL) intra-ocular injection ONCE PRN, Starting on Fri07/30/21 at 0820, Until Fri07/30/21 at 1211, Intra-Operative (Intra-Procedure), Routine dexAMETHasone (Decadron) Given 07/30/2021 8:20 AM EDT 2 mg 19- Surgical Site injection ONCE PRN, Starting on Fri07/30/21 at 0820, Until Fri07/30/21 at 1211, Intra-Operative (Intra-Procedure), Routine lidocaine (Xylocaine) (20 Given 07/30/2021 8:08 AM 1.5 mLs 20-Other (document mg/mL) 2% injection EDT in comment sect ion) ONCE PRN, Starting on Fri07/30/21 at 0755, Until Fri07/30/21 at 1211, Intra-Operative (Intra-Procedure), Routine Given 07/30/2021 7:55 AM EDT 3 mLs 20-Ot her (document in comment section) moxifloxacin (Vigamox) 0.5 % ophthalmic Given 07/30/2021 7:40 AM EDT 1 drop solution 1 drop 1 drop, Left Eye, EVERY 5 MIN, 3 doses, First dose on Fri07/30/21 at 0730, Last dose on Fri07/30/21 at 0740, Day of Surgery (Day of Procedure), Routine Given 07/30/2021 7:35 AM EDT 1 drop Given 07/30/2021 7:25 AM EDT 1 drop moxifloxacin (Vigamox) 0.5 % ophthalmic Given 07/30/2021 8:22 AM EDT 1 drop solution ONCE PRN, Starting on Fri07/30/21 at 0822, Until Fri07/30/21 at 1211, Intra-Operative (Intra-Procedure), Routine thjqycsm-yesaxunbo-tvdWNCIJzygze (Dexacine) Given 07/30/2021 8:22 AM 0.25 Tubes 3.5 mg/g-10,000 unit/g-0.1 % ophthalmic EDT ointment ONCE PRN, Starting on Fri07/30/21 at 0822, Until Fri07/30/21 at 1211, Intra-Operative (Intra-Procedure), Routine PHENYLephrine (Mydfrin) 2.5 % ophthalmic Given 07/30/2021 7:40 A M EDT 1 drop solution 1 drop 1 drop, Left Eye, EVERY 5 MIN, 3 doses, First dose on Fri07/30/21 at 0730, Last dose on Fri07/30/21 at 0740, Day of Surgery (Day of Procedure), Routine Given 07/30/2021 7:34 AM EDT 1 drop Given 07/30/2021 7:24 AM EDT 1 drop povidone-iodine (Betadine Ophthalmic Prep) 5 Given 07/2021 7:55 AM EDT 30 mLs % ophthalmic solution ONCE PRN, Starting on Fri07/30/21 at 0754, Until Fri07/30/21 at 1211, Intra-Operative (Intra-Procedure), Routine Given 07/30/2021 7:54 AM EDT 1 drop prednisoLONE acetate (Pred-Forte) 1 % Given 07/30/2021 7:25 AM E DT 1 drop suspension 1 drop 1 drop, Left Eye, ONCE, 1 dose, On Fri07/30/21 at 0730, Day of Surgery (Day of Procedure), Routine tetracaine (PF) (Pontocaine) ophthalmic Given 07/30/2021 7:54 AM EDT 1 drop solution ONCE PRN, Starting on Fri07/30/21 at 0754, Until Fri07/30/21 at 1211, Intra-Operative (Intra-Procedure), Routine documented in this encounter Active and Recently Administered Medications Times are shown in EDT. Scheduled Medication Order 07/28/2021 07/29/2021 07/30/2021 acetaminophen (Tylenol) tablet 1,000 mg (COMPLETED) 721 (Given - Provider: Gualberto Bennett RN) 1,000 mg, Oral, ONCE, 1 dose, On 07/30 at 0730, Day of Surgery (Day of Procedure) atropine (Isopto Atropine) 1 % solution 1 drop (COMPLETED) 07 (Given - Provider: Gualberto Bennett RN)0735 (Given - Provider: Gualberto Bennett RN)0740 (Given - Provider: Gualberto Bennett RN) 1 drop, Left Eye, EVERY 5 MIN, 3 doses, First dose on Fri07/30/21 at 0730, Last dose on Fri07/30/21 at 0740, Day of Surgery (Day of Procedure), Routine moxifloxacin (Vigamox) 0.5 % ophthalmic solution 1 drop (COMPLET ED) 0725 (Given - Provider: Gualberto Bennett RN)0735 (Given - Provider: Gualberto Bennett RN)0740 (Given - Provider: Gualberto Bennett, NEGRITO) 1 drop, Left Eye, EVERY 5 MIN, 3 doses, First dose on Fri07/30/21 at 0730, Last dose on Fri07/30/21 at 0740, Day of Surgery (Day of Procedure), Routine PHENYLephrine (Mydfrin) 2.5 % ophthalmic solution 1 drop (COMPLE MILLI) 0724 (Given - Provider: Gualberto Bennett RN)0734 (Given - Provider: Gualberto Bennett RN)0740 (Given - Provider: Gualberto Bennett, NEGRITO) 1 drop, Left Eye, EVERY 5 MIN, 3 doses, First dose on Fri07/30/21 at 0730, Last dose on Fri07/30/21 at 0740, Day of Surgery (Day of Procedure), Routine prednisoLONE acetate (Pred-Forte) 1 % suspension 1 drop (COMPLET ED) 0725 (Given - Provider: Gualberto Bennett, RN) 1 drop, Left Eye, ONCE, 1 dose, On Fri at 0730, Day of Surgery (Day of Procedure), Routine Continuous Medication Order 07/28/2021 07/29/2021 07/30/2021 lactated ringers infusion (CANCELED) 0742 (New Bag - Provider: Ashlee Copeland CRNA) 1,000 mL, at 100 mL/hr, Intravenous, CON TINUOUS, Starting on Fri07/30/21 at 0730, Until Fri07/30/21 at 1006, Day of Surgery (Day of Procedure) PRN Medication Order 07/28/2021 07/29/2021 07/30/2021 balanced salt (BSS PLUS) irrigation solution (CANCELED) 0818 (Given - Provider: Sourav Valera MD) ONCE PRN, Starting on Fri07/30/21 at 0818 , Until Fri07/30/21 at 1211, Intra- Operative (Intra-Procedure), Routine balanced salt (BSS) irrigation solution (CANCELED) 0818 (Given - Provider: Sourav Valera MD) ONCE PRN, Starting on Fri07/30/21 at 0818 , Until Fri07/30/21 at 1211, Intra- Operative (Intra-Procedure), Routine BUpivacaine (pf) (Marcaine) (7.5 mg/mL) 0.75% injection (CANCELE D) 0755 (Given - Provider: Sourav Valera MD - Comment: peribulbar block)0808 (Given - Provider: Sourav Valera MD) ONCE PRN, Starting on Fri07/30/21 at 0755 , Until Fri07/30/21 at 1211, Intra- Operative (Intra-Procedure), Routine ceFAZolin (Ancef) injection (CANCELED) 0820 (Given - Provider: Sourav Valera MD - Comment: post op subconjunctival injection) ONCE PRN, Starting on Fri07/30/21 at 0820 , Until Fri07/30/21 at 1211, Intra- Operative (Intra-Procedure), Routine chondroitin-sodium hyaluronate (Viscoat) 4-3 % (40-30 mg/mL) intra-ocular injection (CANCELED) 0820 (Given - Provi so: Sourav Valera MD) ONCE PRN, Starting on Fri07/30/21 at 0820 , Until Fri07/30/21 at 1211, Intra- Operative (Intra-Procedure), Routine dexAMETHasone (Decadron) injection (CANCELED) 0820 (Given - Provider: Sourav Valera MD - Comment: post op subconjunctival injection) ONCE PRN, Starting on Fri07/30/21 at 0820 , Until Fri07/30/21 at 1211, Intra- Operative (Intra-Procedure), Routine lidocaine (Xylocaine) (20 mg/mL) 2% injection (CANCELED) 0755 (Given - Provider: Sourav Valera MD - Comment: peribulbar block)0808 (Given - Provider: Sourav Valera MD) ONCE PRN, Starting on Fri07/30/21 at 0755 , Until Fri07/30/21 at 1211, Intra- Operative (Intra-Procedure), Routine moxifloxacin (Vigamox) 0.5 % ophthalmic solution (CANCELED) 0822 (Given - Provider: Tosha Rust RN - Comment: post op) ONCE PRN, Starting on Fri07/30/21 at 0822 , Until Fri07/30/21 at 1211, Intra- Operative (Intra-Procedure), Routine dvxmwobm-earyjotoh-bwbKUFYNskdhd (Dexaci ne) 3.5 mg/g-10,000 unit/g-0.1 % ophthalmic ointment (CANCELED) 0822 (Giv en - Provider: Tosha Rust RN - Comment: post op) ONCE PRN, Starting on Fri07/30/21 at 0822 , Until Fri07/30/21 at 1211, Intra- Operative (Intra-Procedure), Routine povidone-iodine (Betadine Ophthalmic Prep) 5 % ophthalmic soluti on (CANCELED) 753 (Given - Provider: Tosha Rust RN)075 (Given - Provider: Tosha Rust RN - Comment: prep) ONCE PRN, Starting on Fri07/30/21 at 0754 , Until Fri07/30/21 at 1211, Intra- Operative (Intra-Procedure), Routine tetracaine (PF) (Pontocaine) ophthalmic solution (CANCELED) 753 (Given - Provider: Tosha Rust RN) ONCE PRN, Starting on Fri07/30/21 at 0754 , Until Fri07/30/21 at 1211, Intra- Operative (Intra-Procedure), Routine documented in this encounter Care Teams [employer] Relationship Specialty Start Date End Date Amber Kraus MD PCP - General 04/19/10 [address] [place] [address] documented as of this encounter
--- OUTSIDE RECORDS SUMMARY | 2022-01-11 03:24 | XMS_ITS | Encounter Summary ---
:1945 [place] [address] Care Team Providers Name Role Phone Amber Kraus MD Primary Care Provider Encounter Details Date Type Department Care Team Description 01/16/2021 Ancillary Procedure Radiology Library at [facility] MD [facility] [place] [address] Cardiology [phone] [place] [id number] (Wo rk) Social History Tobacco Use Types [...] Name Priority Date/Time Associated Diagnosis Comme nts FILM LIBRARY Routine 01/16/2021 12:00 AM Results for this STORAGE ONLY CT EST procedure ar e in CHEST the results section. documented in this encounter Results Film Library- Storage Only CT Chest (01/16/2021 12:00 AM EST) Specimen (Source) Anatomical Location Collection Method / Collectio n Time Received Time / Laterality Volume Narrative KAYLA - 01/17/2021 12:00 AM EST This exam is auto-finalizing. It's purpo se is for storage only. Francis Alanis MD IMG FILM LIBRARY ORDERABLES Performing Organization Address City/State/ZIP Code Phon e Number [place], [place] documented in this encounter Visit Diagnoses Not on filedocumented in this encounter Care Teams Cane Flume Chute Operator Relationship Specialty Start Date End Date Amber Kraus MD PCP - General 04/19/10 [address] [place] [address] documented as of this encounter
--- OUTSIDE RECORDS SUMMARY | 2022-01-11 03:24 | XMS_ITS | Encounter Summary ---
:1945 Author Organization [facility] [place] [address] Care Team Providers Name Role Phone Amber Kraus MD Primary Care Provider Reason for Referral Diagnostic Test (Routine) - Closed Specialty Diagnoses / Procedures Referred By Contact Refer red To Contact Cardiology Diagnoses Elevated troponin Janet Neal MD [facility] Non-Inv Card Lab Procedures Mobile Echo [address] [place] [id number] Referral ID Status Reason Start Date Expiration Date Visits V isits Requested Authorized [id number] Closed Specialty 01/17/2021 01/17/2022 1 1 Service Requested Reason for Visit Diagnostic Test (Routine) - Closed Specialty Diagnoses / Procedures Referred By Contact Refer red To Contact Cardiology Diagnoses Elevated troponin Janet Neal MD [facility] Non-Inv Card Lab Procedures Mobile Echo [address] [place] [id number] Referral ID Status Reason Start Date Expiration Date Visits V isits Requested Authorized [id number] Closed Specialty 01/17/2021 01/17/2022 1 1 Service Requested Encounter Details Date Type Department Care Team Description 01/17/2021 Hospital Encounter Janet Nieto Eleva ted troponin Echocardiography [facility] [address] [facility] [phone] Social History Tobacco Use Types Packs/Day Years Used Date Smoking Tobacco: Some Days Cigarettes Smokeless Tobacco: Never Comments: quit at age 43 Alcohol Use Standard Drinks/Week Comments Yes 0 (1 standard drink = 0.6 oz pure alcoho l) Occasional Sex Assigned at Date Recorded Not on file documented as of this encounter Medications at Time of Discharge Medication Sig Dispensed Refills Start Date End Date HYDROcodone-acetaminophen TAKE ONE TABLET BY 0 ([place]) 10-325 mg Tablet MOUTH FOUR TIMES A DAY NEEDED METOPROLOL TARTRATE ORAL Take by mouth. 0 carbidopa-levodopa Take 1 tablet by 0 09/20/2010 (SINEMET) 25-250 mg per mouth every tablet evening. diphenhydrAMINE (BENADRYL) Take 50 mg by 0 07/27/2021 25 mg Tablet mouth. FLUoxetine (PROZAC) 10 mg Take 10 mg by 0 07/27/2021 capsule mouth daily. diphenhydrAMINE (BENADRYL) Take 25 mg by 0 07/27/2021 25 mg tablet mouth every 6 hours as needed. morphine (AVINZA) 30 mg 24 Take 30 mg by 0 08/08/2021 hr capsule mouth daily. OXcarbazepine (TRILEPTAL) Take 5 mLs by 0 09/20/ 011 07/27/2021 300 mg/5 mL Susp mouth 2 times daily. documented as of this encounter Plan of Treatment Not on filedocumented as of this encounter Procedures Procedure Name Priority Date/Time Associated Comments Diagnosis ECHOCARDIOGRAM COMPLETE Routine 01/17/2021 12:00 Elevated trop onin Results for this PM EST procedure are i n the results section. documented in this encounter Results ECHOCARDIOGRAM COMPLETE (01/17/2021 12:00 PM EST) P athologist Signature EF 45 HEARTLAB SYSTEM Anatomical Region Laterality Modality Other Specimen (Source) Anatomical Location Collection Method / Collectio n Time Received Time / Laterality Volume 01/17/2021 Narrative 01/17/2021 1:19 PM EST Procedure: ?Transthoracic Echocardiogram Patient: ?Chris Crenshaw R. ?? (Age): 1945(75y) Med Rec#: ? [id number] ?Sex: ?F ? Site Loc: ? [place] [place] ??H t / Wt: ??162.56(cm)/37.2 Pt. Loc: ?BSA: ?1.34 Study Date: ?? 01/17/2021 ?Pt. Type: Inpatient Tape: ? Referring: JANET NEAL A Reading: Gal Monsivais ([id number]) Diagnosis: *Other specified abnormalities of plasm a proteins (R77.8) BP: ? 143/85 SUMMARY: 1. The left ventricle is probably normal in size. Left ventricular wall thickness is normal. Global left ventric ular systolic function is mildly reduced. The quantitative left ventricul ar ejection fraction by biplane Rosales's method is 45%. There are segme ntal left ventricular wall motion abnormalities with ??akinesis of the apical cap, otherwise diffuse hypokinesis with preserved systolic func tion only of the basal inferolateral wall segment. 2. The left atrium is normal in size. 3. The right ventricle is probably zeferino l in size. Right ventricular global systolic function is probably nor mal. 4. There is no hemodynamically significa nt valve disease. 5. Compared to 08/31/2010, left ventricula r global and segmental systolic function appear similar, however mitral regurgitation appears much less (in setting of technically limited study ). Findings ? : Study Quality: ? Technically limited Left Ventricle: ? The left ventricle is probably normal in size. ?Left ventricular wall thickness is normal. ?No ventricular septal defect is vi sualized. ?Global left ventricular systolic f unction is mildly reduced. ?The quantitative left ventricular ejection fraction by biplane Rosales's method is 45%. ?There are segmental left ventricul ar wall motion abnormalities involving the akinesis of the apical cap , otherwise diffuse hypokinesis with preserved systolic function only of the basal inferolateral wall segment. ?? Left Atrium: ? The left atrium is no rmal in size. ?There is no evidence of a patent f oramen ovale by color Doppler. Right Ventricle: ? The right ventric le is probably normal in size. ?Right ventricular global systolic function is probably normal. Right Atrium: ? The right atrium is normal in size. Aortic Valve: ? The aortic valve is probably tricuspid. ?The aortic valve leaflets are mild ly thickened. ?There is no evidence of aortic karen ve stenosis. ?There is a trace of aortic regurgi tation present. Mitral Valve: ? Mild mitral leaflet calcification is visualized. ?There is no evidence of mitral kae nosis. ?There is trace mitral regurgitatio n present. Tricuspid Valve: ? The tricuspid karen ve leaflets are morphologically normal. ?There is no tricuspid valve stenos is. ?There is trace tricuspid regurgita tion present. Pulmonic Valve: ? The pulmonic valve is not well visualized. ?There is no pulmonic stenosis pres ent. ?There is no evidence of pulmonic r egurgitation. Pericardium: ? There is no pericardi al effusion. Aorta: ? The aortic root is normal i n size. ?The ascending aorta was not well v isualized. Venous: ? The inferior vena cava bethany ears normal in size. ?There is a greater than 50% respir atory change in the inferior vena cava dimension. Misc: ? There is no hemodynamically significant valve disease. ?Two-dimensional echo, spectral Dop pler and color Doppler performed. Chambers 2D ?Value ?Units (Range) ? IVSd (2D) ? 0.77 ? cm ? LVPWd (2D) ?0.78 ? cm ? IVS:LVPW ratio (2D) 0.99 ? ratio ? RWT (2D) ?0.43 ? ratio ? RWT PW (2D) ? 0.43 ? ratio ? LVIDd (2D) ?3.58 ? cm ? LVIDs (2D) ?2.81 ? cm ? LVIDd (2D) index ?2.68 ? cm/m2 ? LVIDs (2D) index ?2.1 ?cm/m2 ? LV FS (2D) ?21.58 ?% ? EF Teichholz (2D) ?? 44.61 ?% ? Volumes/Mass ?Value ?Units (Range) ? LA ESV BP (A/L) inde21.15 ? ml/m2 ? LA ESV BP (MOD) inde19.92 ? ml/m2 ? LV ESV SP 4CH (MOD) 40.94 ? ml ? LV ESV SP 2CH (MOD) 36.19 ? ml ? LV EDV BP ? 70.65 ?ml ? LV ESV BP ? 38.76 ?ml ? LV EDV BP index ? 52.76 ?ml/m2 ? LV ESV BP index ? 28.94 ?ml/m2 ? BP EF (MOD) ? 45.14 ?% ? LV mass (2D) ?74.98 ?g ? LV mass (2D) index ??55.99 ?g/m2 ? Diastolic/Systolic Function ?Value ?Units (Range) ? MV E-wave Vmax ?0.75 ? m/sec ? MV deceleration pizl366.8 ? msec ? MV A-wave Vmax ?1.01 ? m/sec ? MV E:A ratio ?0.74 ? ratio ? LV septal e' Vmax ?? 0.05 ? m/sec ? LV lateral e' Vmax ??0.08 ? m/sec ? LV average e' Vmax ??0.07 ? m/sec ? LV E:e' septal ratio14.6 ? ratio ? LV E:e' lateral rati9.15 ? ratio ? LV average E:e' rati11.25 ? ratio ? Aortic Valve ?Value ?Units (Range) ? AV Vmax ? 0.95 ? m/sec ? AV VTI ?15.62 ?cm ? AV peak gradient ?3.57 ? mmHg ? AV mean gradient ?2.68 ? mmHg ? LVOT diameter ? 1.92 ? cm ? LVOT Vmax ? 0.82 ? m/sec ? LVOT VTI ?12.99 ?cm ? DOI (VTI) ? 0.83 ? ratio ? DOI (Vmax) ?0.87 ? ratio ? SV LVOT ? 37.48 ?ml ? CO LVOT ? 3.84 ? l/min ? Cardiac index ? 2.87 ? l/min/m2 ? NELSON (continuity Vmax2.52 ? cm2 ? NELSON (continuity Vmax1.88 ? cm2/m2 ? NELSON (continuity VTI)2.4 ?cm ? NELSON (continuity VTI)1.79 ? cm2/m2 ? Mitral Valve ?Value ?Units (Range) ? MV VTI ?16.45 ?cm ? MV PHT ?69.25 ?msec ? MVA (PHT) ? 3.18 ? cm2 ? MVA (continuity VTI)2.28 ? cm2 ? Tricuspid Valve ?Value ?Units (Range) ? TR Vmax ? 1.61 ? m/sec ? TR peak gradient ?10.41 ?mmHg ? RVSP ?13.41 ?mmHg ? Pulmonic Valve/Qp:Qs ?Value ?Units (Range) ? PV Vmax ? 1.21 ? m/sec ? PV VTI ?20.2 ? cm ? PV peak gradient ?5.82 ? mmHg ? PV mean gradient ?2.85 ? mmHg ? RVOT Vmax ? 0.97 ? m/sec ? RVOT VTI ?14.94 ?cm ? RVOT peak gradient ??3.77 ? mmHg ? PV acceleration jbsq047.1 ? msec ? PV ejection time ?258.99 ? msec ? PV AT:ET ?0.46 ? ratio ? This report has been electronically sign ed by: _ Gal Monsivais MD ? 01/17/2021 13:18 :20 Images reviewed and interpretation verif ied [facility] Cardiac Ultrasound Laboratory Procedure Note Gal Monsivais MD - 01/17/2021Formattin g of this note might be different from the original. Procedure: Transthoracic Echocardiogram Patient: Chris RODRIGUES(Age): 1945(75y) Med Rec#: [id number] Sex: F Site Loc: [facility] Ht / Wt: 162.56(cm)/37.2 Pt. Loc: BSA: 1.34 Study Date: 01/17/2021 Pt. Type: Inpatie nt Tape: Referring: JANET NEAL A Reading: Gal Monsivais ([id number]) Diagnosis: *Other specified abnormalities of plasm a proteins (R77.8) BP: 143/85 SUMMARY: 1. The left ventricle is probably normal in size. Left ventricular wall thickness is normal. Global left ventric ular systolic function is mildly reduced. The quantitative left ventricul ar ejection fraction by biplane Rosales's method is 45%. There are segme ntal left ventricular wall motion abnormalities with akinesis of th e apical cap, otherwise diffuse hypokinesis with preserved systolic func tion only of the basal inferolateral wall segment. 2. The left atrium is normal in size. 3. The right ventricle is probably zeferino l in size. Right ventricular global systolic function is probably nor mal. 4. There is no hemodynamically significa nt valve disease. 5. Compared to 08/31/2010, left ventricula r global and segmental systolic function appear similar, however mitral regurgitation appears much less (in setting of technically limited study ). Findings : Study Quality: Technically limited Left Ventricle: The left ventricle is pr obably normal in size. Left ventricular wall thickness is norm al. No ventricular septal defect is visuali zed. Global left ventricular systolic functi on is mildly reduced. The quantitative left ventricular eject ion fraction by biplane Rosales's method is 45%. There are segmental left ventricular wa ll motion abnormalities involving the akinesis of the apical cap , otherwise diffuse hypokinesis with preserved systolic function only of the basal inferolateral wall segment. Left Atrium: The left atrium is normal i n size. There is no evidence of a patent forame n ovale by color Doppler. Right Ventricle: The right ventricle is probably normal in size. Right ventricular global systolic funct ion is probably normal. Right Atrium: The right atrium is normal in size. Aortic Valve: The aortic valve is probab ly tricuspid. The aortic valve leaflets are mildly th ickened. There is no evidence of aortic valve st enosis. There is a trace of aortic regurgitatio n present. Mitral Valve: Mild mitral leaflet calcif ication is visualized. There is no evidence of mitral stenosis . There is trace mitral regurgitation pre sent. Tricuspid Valve: The tricuspid valve lianet flets are morphologically normal. There is no tricuspid valve stenosis. There is trace tricuspid regurgitation present. Pulmonic Valve: The pulmonic valve is no t well visualized. There is no pulmonic stenosis present. There is no evidence of pulmonic regurg itation. Pericardium: There is no pericardial eff usion. Aorta: The aortic root is normal in size . The ascending aorta was not well visual ized. Venous: The inferior vena cava appears n ormal in size. There is a greater than 50% respiratory change in the inferior vena cava dimension. Misc: There is no hemodynamically signif icant valve disease. Two-dimensional echo, spectral Doppler and color Doppler performed. Chambers 2D Value Units (Range) IVSd (2D) 0.77 cm LVPWd (2D) 0.78 cm IVS:LVPW ratio (2D) 0.99 ratio RWT (2D) 0.43 ratio RWT PW (2D) 0.43 ratio LVIDd (2D) 3.58 cm LVIDs (2D) 2.81 cm LVIDd (2D) index 2.68 cm/m2 LVIDs (2D) index 2.1 cm/m2 LV FS (2D) 21.58 % EF Teichholz (2D) 44.61 % Volumes/Mass Value Units (Range) LA ESV BP (A/L) inde21.15 ml/m2 LA ESV BP (MOD) inde19.92 ml/m2 LV ESV SP 4CH (MOD) 40.94 ml LV ESV SP 2CH (MOD) 36.19 ml LV EDV BP 70.65 ml LV ESV BP 38.76 ml LV EDV BP index 52.76 ml/m2 LV ESV BP index 28.94 ml/m2 BP EF (MOD) 45.14 % LV mass (2D) 74.98 g LV mass (2D) index 55.99 g/m2 Diastolic/Systolic Function Value Units (Range) MV E-wave Vmax 0.75 m/sec MV deceleration hoqn769.8 msec MV A-wave Vmax 1.01 m/sec MV E:A ratio 0.74 ratio LV septal e' Vmax 0.05 m/sec LV lateral e' Vmax 0.08 m/sec LV average e' Vmax 0.07 m/sec LV E:e' septal ratio14.6 ratio LV E:e' lateral rati9.15 ratio LV average E:e' rati11.25 ratio Aortic Valve Value Units (Range) AV Vmax 0.95 m/sec AV VTI 15.62 cm AV peak gradient 3.57 mmHg AV mean gradient 2.68 mmHg LVOT diameter 1.92 cm LVOT Vmax 0.82 m/sec LVOT VTI 12.99 cm DOI (VTI) 0.83 ratio DOI (Vmax) 0.87 ratio SV LVOT 37.48 ml CO LVOT 3.84 l/min Cardiac index 2.87 l/min/m2 NELSON (continuity Vmax2.52 cm2 NELSON (continuity Vmax1.88 cm2/m2 NELSON (continuity VTI)2.4 cm NELSON (continuity VTI)1.79 cm2/m2 Mitral Valve Value Units (Range) MV VTI 16.45 cm MV PHT 69.25 msec MVA (PHT) 3.18 cm2 MVA (continuity VTI)2.28 cm2 Tricuspid Valve Value Units (Range) TR Vmax 1.61 m/sec TR peak gradient 10.41 mmHg RVSP 13.41 mmHg Pulmonic Valve/Qp:Qs Value Units (Range) PV Vmax 1.21 m/sec PV VTI 20.2 cm PV peak gradient 5.82 mmHg PV mean gradient 2.85 mmHg RVOT Vmax 0.97 m/sec RVOT VTI 14.94 cm RVOT peak gradient 3.77 mmHg PV acceleration ggbe009.1 msec PV ejection time 258.99 msec PV AT:ET 0.46 ratio This report has been electronically sign ed by: _ Gal Monsivais MD 01/17/2021 13:18:20 Images reviewed and interpretation verif collin [facility] Cardiac Ultrasound Laboratory Janet Neal MD ECHO ORDERABLES documented in this encounter Visit Diagnoses Diagnosis Elevated troponin Other abnormal blood chemistry documented in this encounter Care Teams Classroom Monitor Relationship Specialty Start Date End Date Amber Kraus MD PCP - General 04/19/10 [address] [place] [address] documented as of this encounter
--- OUTSIDE RECORDS SUMMARY | 2022-01-11 03:24 | XMS_ITS | Encounter Summary ---
:1945 Author Organization [facility] [place] [address] Care Team Providers Name Role Phone Amber Kraus MD Primary Care Provider Reason for Visit Reason Comments Patient Not Seen Encounter Details Date Type Department Care Team Description 02/05/2013 Clinical Support Ophthalmology at [facility] C PATIENT NOT SEEN [facility] Gilma dorantes (Primary Dx) [place] [phone] Social History Tobacco Use Types Packs/Day Years Used Date Smoking Tobacco: Some Days Cigarettes Comments: quit at age 43 Alcohol Use Standard Drinks/Week Comments Yes 0 (1 standard drink = 0.6 oz pure alcoho l) Occasional Sex Assigned at Date Recorded Not on file documented as of this encounter Plan of Treatment Not on filedocumented as of this encounter Visit Diagnoses Diagnosis PATIENT NOT SEEN - Primary documented in this encounter Care Teams Grocery Shopper Relationship Specialty Start Date End Date Amber Kraus MD PCP - General 04/19/10 [address] [place] [address] documented as of this encounter
--- OUTSIDE RECORDS SUMMARY | 2022-01-11 03:24 | XMS_ITS | Encounter Summary ---
:1945 Author Organization [facility] [place] [address] Care Team Providers Name Role Phone Amber Kraus MD Primary Care Provider Reason for Visit Consultation (Routine) - Closed Specialty Diagnoses / Procedures Referred By Contact Refer red To Contact Neurology Diagnoses Extrapyramidal and movement disorder, unspecified Amber Kraus MD [facility] Neurology 3c [address] [place] [address] [place] [address] Fax: Referral ID Status Reason Start Date Expiration Date Visits V isits Requested Authorized [id number] Closed Consult, Test 06/05/2020 06/05/2021 [facility] PCP Updated and/or Approved Encounter Details Date Type Department Care Team Description 06/26/2020 Office Visit Neurology at [facility] Tosha Samuel DO PATIENT NOT SEEN [facility] [place] [address] [place] [address] [phone] (Wo rk) Social History Tobacco Use Types Packs/Day Years Used Date Smoking Tobacco: Some Days Cigarettes Smokeless Tobacco: Never Comments: quit at age 43 Alcohol Use Standard Drinks/Week Comments Yes 0 (1 standard drink = 0.6 oz pure alcoho l) Occasional Sex Assigned at Date Recorded Not on file documented as of this encounter Progress Notes Tosha Samuel DO - 06/26/2020 10:00 AM EDT This patient was not seen in this encounter. documented in this encounter Plan of Treatment Not on filedocumented as of this encounter Visit Diagnoses Diagnosis DH PATIENT NOT SEEN documented in this encounter Care Teams Architectural Manager Relationship Specialty Start Date End Date Amber Kraus MD PCP - General 04/19/10 [address] [place] [address] documented as of this encounter
--- OUTSIDE RECORDS SUMMARY | 2022-01-11 03:24 | XMS_ITS | Encounter Summary ---
:1945 Author Organization [facility] [place] [address] Care Team Providers Name Role Phone Amber Kraus MD Primary Care Provider Encounter Details Date Type Department Care Team Description 01/14/2013 Abstract Ophthalmology at [facility] Yaya Sellers MD [facility] [place] [address] OPHTHALMOLOGY DEPT. [phone] [place], [place] [address] (Wo rk) Social History Tobacco Use Types Packs/Day Years Used Date Smoking Tobacco: Former Cigarettes Comments: quit at age 43 Alcohol Use Standard Drinks/Week Comments Yes 0 (1 standard drink = 0.6 oz pure alcoho l) Occasional Sex Assigned at Date Recorded Not on file documented as of this encounter Plan of Treatment Not on filedocumented as of this encounter Visit Diagnoses Not on filedocumented in this encounter Care Teams Certified Welder Relationship Specialty Start Date End Date Amber Kraus MD PCP - General 04/19/[address] [place] [address] documented as of this encounter
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
--- OUTSIDE RECORDS SUMMARY | 2022-01-11 03:24 | XMS_ITS | Encounter Summary ---
:1945 Author Organization [facility] [address] Care Team Providers Name Role Phone Amber Kraus MD Primary Care Provider Encounter Details Date Type Department Care Team Description 11/07/2010 Orders Only Orthopaedics at [facility] Ilia Conteh MD [facility] [place] [address] ORTHOPAEDIC SURGERY [phone] [place] [address] (Wo rk) Social History Tobacco Use Types Packs/Day Years Used Date Smoking Tobacco: Former Cigarettes Comments: quit at age 43 Sex Assigned at Date Recorded Not on file documented as of this encounter Plan of Treatment Not on filedocumented as of this encounter Visit Diagnoses Not on filedocumented in this encounter Care Teams Employment Instructional Associate Relationship Specialty Start Date End Date Amber Kraus MD PCP - General 04/19/10 [address] [place] [address] documented as of this encounter
--- OUTSIDE RECORDS SUMMARY | 2022-01-11 03:24 | XMS_ITS | Encounter Summary ---
:1945 Author Organization [facility] [place] [address] Care Team Providers Name Role Phone Amber Kraus MD Primary Care Provider Encounter Details Date Type Department Care Team Description 11/01/2010 Hospital Encounter XRay at [address] [place] [address] Social History Tobacco Use Types Packs/Day Years Used Date Smoking Tobacco: Former Cigarettes Comments: quit at age 43 Sex Assigned at Date Recorded Not on file documented as of this encounter Medications at Time of Discharge Medication Sig Dispensed Refills Start Date End Date carbidopa-levodopa Take 1 tablet by 0 09/20/2010 (SINEMET) 25-250 mg per mouth every evening. tablet cyclobenzaprine Take 10 mg by mouth 0 10/21/2012 (FLEXERIL) 10 mg tablet nightly. OXYcodone (ROXICODONE) Take 20 mg by mouth 3 0 10/21/2012 15 mg immediate release times daily. tablet METHADONE HCL Take 15 mg by mouth 2 0 10/21/2012 (METHADONE ORAL) times daily. famotidine (PEPCID) 20 1 tablet by Per G 30 tablet 0 201009/20/2011 mg tablet Tube route 2 times daily. acetaminophen (TYLENOL) Take 1 tablet by 30 tablet 0 201010/21/2012 500 mg tablet mouth every 6 hours. albuterol (PROVENTIL Inhale 2 puffs into 1 Inhaler 0 201010/21/2012 HFA;VENTOLIN HFA) 90 the lungs every 6 mcg/Actuation inhaler hours as needed for Wheezing. Use with spacer aspirin 81 mg chewable Take 1 tablet by 30 tablet 0 2 011 10/21/2012 tablet mouth daily. HEPARIN Inject 0.5 mLs 0 09/20/2010 10/21/2012 SODIUM,PORCINE/PF subcutaneously 2 (HEPARIN, PORCINE,) times daily. 5,000 unit/0.5 mL Syrg subcutaneous injection LORazepam (ATIVAN) 2 Inject 0.25-0.5 mLs 1 mL 0 201010/21/2012 mg/mL injection into the vein every 4 hours as needed. methadone (METHADOSE) Take 5 mLs by mouth 150 mL 0 09/2010/21/2012 10 mg/5 mL solution every 8 hours. metoprolol (LOPRESSOR) Inject 2.5-5 mLs into 5 mL 0 10/21/2012 5 mg/5 mL injection the vein every 2 hours as needed (Tachycardia for HR > 105 and SBP >95). metoprolol tartrate 1 tablet by Per G 60 tablet 0 201 1 10/21/2012 (LOPRESSOR) 50 mg Tube route every 6 tablet hours. nystatin (MYCOSTATIN) Apply topically 2 30 g 0 011 10/21/2012 cream times daily. OXcarbazepine Take 5 mLs by mouth 2 0 09/20/2010 07/27/2021 (TRILEPTAL) 300 mg/5 mL times daily. Susp OXYcodone (ROXICODONE) Take 1-2 tablets by 100 tablet 0 08/2510/21/2012 5 mg immediate release mouth every 4 hours tablet as needed for Pain. QUEtiapine (SEROQUEL) Take 1 tablet by 60 tablet 0 09/21/19 11 10/21/2012 25 mg tablet mouth 2 times daily. traZODone (DESYREL) 50 Take 1 tablet by 90 tablet 0 011 10/21/2012 mg tablet mouth nightly. tube feeding diet 130 mLs by Per G Tube 1200 mL 0 011 10/21/2012 route daily. 1200ml of replete daily - schedule to run overnight from 1800 - 0600 at rate of 100ml/hr documented as of this encounter Plan of Treatment Not on filedocumented as of this encounter Procedures Procedure Name Priority Date/Time Associated Diagnosis Comme nts XR ANKLE MINIMUM 3 Routine 11/01/2010 5:00 PM Unspecified clos ed Results for this VIEWS EDT fracture of ankle procedure are in the results section. documented in this encounter Results XR ANKLE MINIMUM 3 VIEWS (11/01/2010 5:00 PM EDT) Anatomical Region Laterality Modality Ankle N/A Radiographic Imaging Specimen (Source) Anatomical Collection Method Collection Time Re ceived Time Location / / Volume Laterality 11/01/2010 5:00 PM EDT Impressions 11/05/2010 7:32 AM EDT IMPRESSION: ?? No evidence of a significant interval ch lea. Narrative 11/05/2010 7:32 AM EDT ANKLE, THREE VIEWS, 11/01/10: HISTORY: ??Followup fracture. ?? FINDINGS: ??Comparison made to previous studies again demonstrates fixation [id number]-[id number] over distal fibular fra cture with fixation screws over medial malleolus and syndesmosis screws. Hardwa re appears stable. Alignment appears stable. The ankle mortise is well mainta ined. There is some disuse osteopenia present. ?? Procedure Note Millicent Mccracken MD - 10/25 ANKLE, THREE VIEWS, 11/01/10: HISTORY: Followup fracture. FINDINGS: Comparison made to previous st udies again demonstrates fixation frnpw-mps-ureksa over distal fibular fra cture with fixation screws over medial malleolus and syndesmosis screws. Hardwa re appears stable. Alignment appears stable. The ankle mortise is well mainta ined. There is some disuse osteopenia present. IMPRESSION IMPRESSION: No evidence of a significant interval ch lea. Kenneth Lord MD IMG DX ORDERABLES documented in this encounter Visit Diagnoses Diagnosis Fx ankle Unspecified closed fracture of ankle documented in this encounter Care Teams Research And Development Technician Relationship Specialty Start Date End Date Amber Kraus MD PCP - General 04/19/10 [address] [place] [address] documented as of this encounter
--- OUTSIDE RECORDS SUMMARY | 2022-01-11 03:24 | XMS_ITS | Encounter Summary ---
:1945 Author Organization [facility] [place] [address] Care Team Providers Name Role Phone Amber Kraus MD Primary Care Provider Reason for Visit Reason Comments Eye Problem The patient presents for con sultation regarding reduced vision in the left eye and consideration o f lens exchange in the left eye as well. STEFF Beal Encounter Details Date Type Department Care Team Description 02/05/2013 Office Visit Ophthalmology at [facility] Sophie Phoenix, Urvashiocated IOL (intraocular lens), posterior, left; [facility] Ramses Moss [place] [address] [address] [address] [phone] OPH[address]ALMOLOGY [address] [place] [id number] (Wo rk) Social History Tobacco Use Types Packs/Day Years Used Date Smoking Tobacco: Some Days Cigarettes Comments: quit at age 43 Alcohol Use Standard Drinks/Week Comments Yes 0 (1 standard drink = 0.6 oz pure alcoho l) Occasional Sex Assigned at Date Recorded Not on file documented as of this encounter Progress Notes Ramses Phoenix MD - 02/05/2013 9:43 PM EST Dear Jony; I had the pleasure seeing this very nice patient on February 05, 2013. After review of her history as well as examination findings and the dislocated lens in the left eye, I recommended that she undergo vitrectomy followed by exchange with an anterior chamber lens in the left eye. I see no contraindications. I've reviewed with the patient the risks and benefits of such surgery including but not limited to retinal detachment, endophthalmitis macular edema, glaucoma and other important considerations. Respectfully Ramses documented in this encounter Miscellaneous Notes Addendum Note - Ramses Phoenix MD - 02/07/2013 10:38 PM EST Addended by: RAMSES PHOENIX on: 02/07/2013 10:38 PM Modules accepted: Orders, SmartSet documented in this encounter Plan of Treatment Not on filedocumented as of this encounter Visit Diagnoses Diagnosis Dislocated IOL (intraocular lens), poste rior, left Pseudophakia Lens replaced by other means documented in this encounter Care Teams Wood And Hardware Outfitter Relationship Specialty Start Date End Date Amber Kraus MD PCP - General 04/19/10 [address] [place] [address] documented as of this encounter
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
--- OUTSIDE RECORDS SUMMARY | 2022-01-11 03:24 | XMS_ITS | Encounter Summary ---
:1945 Author Organization [facility] [place] [address] Care Team Providers Name Role Phone Amber Kraus MD Primary Care Provider Encounter Details Date Type Department Care Team Description 11/17/2013 Orders Only Orthopaedics at [facility] Verna Zambrano, Pain in right hip [facility] (Primary Dx) [place] [address] [address] [phone] ORTHOPAEDIC SURGERY [place] [address] Social History Tobacco Use Types Packs/Day Years Used Date Smoking Tobacco: Some Days Cigarettes Comments: quit at age 43 Alcohol Use Standard Drinks/Week Comments Yes 0 (1 standard drink = 0.6 oz pure alcoho l) Occasional Sex Assigned at Date Recorded Not on file documented as of this encounter Plan of Treatment Not on filedocumented as of this encounter Visit Diagnoses Diagnosis Pain in right hip - Primary Pain in joint, pelvic region and thigh documented in this encounter Care Teams Supervisor Wet Pour Relationship Specialty Start Date End Date Amber Kraus MD PCP - General 04/19/10 [address] [place] [address] documented as of this encounter
--- OUTSIDE RECORDS SUMMARY | 2022-01-11 03:24 | XMS_ITS | Encounter Summary ---
:1945 Author Organization [facility] [place] [address] Care Team Providers Name Role Phone Amber Kraus MD Primary Care Provider Encounter Details Date Type Department Care Team Description 10/21/2012 Abstract Ophthalmology at [facility] Yaya Sellers MD [facility] [place] [address] OPHTHALMOLOGY DEPT. [phone] [place], [place] [address] (Wo rk) Social History Tobacco [...] on filedocumented in this encounter Care Teams Editing Internship Relationship Specialty Start Date End Date Amber Kraus MD PCP - General 04/19/10 [address] [place] [address] documented as of this encounter
--- OUTSIDE RECORDS SUMMARY | 2022-01-11 03:24 | XMS_ITS | Encounter Summary ---
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 PAIN May use over the counter pain [...] nightly. HYDROcodone-acetaminophen TAKE ONE TABLET BY 0 (Jeff) 10-325 mg Tablet MOUTH FOUR TIMES A [...] surgery as planned. Sourav Valera MD, PhD Bilingual Loan Processor of Ophthalmology Diseases of the Retina and Vitreous documented in this encounter Miscellaneous Notes Op Note - Sourav Valera MD - 07/30/2021 8:07 AM EDT [facility] Operative Note Patient Name: Den Han : [id number] MR#: [id number] Case Date: 07/30/2021 Surgeon: Surgeon(s) and Role: [...] brought to the operative suite at the [facility] where a time-out was done to confirm [...] The vitreous base was shaved while the speech assistant was depressing thesclera. A superior clear corneal incision was created with 2.4mm keratome. Using the soft tip canulaand the max-digital printer operator forceps the IOL was brought to the [...] created with a 30GTSK needle temporally. Usingthe max-digital printer operator forceps the temporal IOL haptic was loaded [...] Given 07/30/2021 7:24 AM EDT 1 drop moxifloxacin (Vigamox) 0.5 % ophthalmic Given 07/30/2021 7:40 AM EDT 1 drop solution 1 drop 1 drop, Left Eye, EVERY 5 MIN, 3 doses, First dose on Fri07/30/21 at 0730, Last dose on Fri07/30/21 at 0740, Day of Surgery (Day of Procedure), Routine Given 07/30/2021 7:35 AM EDT 1 drop Given 07/30/2021 7:25 AM EDT 1 drop PHENYLephrine (Mydfrin) 2.5 % ophthalmic Given 07/30/2021 7:40 A M EDT 1 drop solution 1 drop 1 drop, Left Eye, EVERY 5 MIN, 3 doses, First dose on Fri07/30/21 at 0730, Last dose on Fri07/30/21 at 0740, Day of Surgery (Day of Procedure), Routine Given 07/30/2021 7:34 AM EDT 1 drop Given 07/30/2021 7:24 AM EDT 1 drop prednisoLONE acetate (Pred-Forte) 1 % Given 07/30/2021 7:25 AM E DT 1 drop suspension 1 drop 1 drop, Left Eye, ONCE, 1 dose, On Fri07/30/21 at 0730, Day of Surgery (Day of Procedure), Routine documented in this encounter Active and Recently Administered Medications Times are shown in EDT. Scheduled Medication Order 07/28/2021 07/29/2021 07/30/2021 acetaminophen (Tylenol) tablet 1,000 mg (COMPLETED) 721 (Given - Provider: Gualberto Bennett RN) 1,000 mg, Oral, ONCE, 1 dose, On 07/30 at 0730, Day of Surgery (Day of Procedure) atropine (Isopto Atropine) 1 % solution 1 drop (COMPLETED) 723 (Given - Provider: Gualberto Bennett RN)0735 (Given - Provider: Gualberto Bennett, NEGRITO)0740 (Given - Provider: Gualberto Bennett RN) 1 [...] ED) 0725 (Given - Provider: Gualberto Bennett RN) 1 drop, Left Eye, ONCE, 1 [...] 4-3 % (40-30 mg/mL) intra-ocular injection (CANCELED) 08 (Given - Provi so: Sourav Valera MD) ONCE PRN, Starting on Fri07/30/21 at 0820 , Until Fri07/30/21 at 1211, Intra- Operative (Intra-Procedure), Routine dexAMETHasone (Decadron) injection (CANCELED) 08 (Given - Provider: Sourav Valera MD - [...] Fri07/30/21 at 1211, Intra- Operative (Intra-Procedure), Routine aeslnaql-irctogssw-tsbRDYTHoohgl (Dexaci ne) 3.5 mg/g-10,000 unit/g-0.1 % ophthalmic ointment (CANCELED) 08 (Giv en - Provider: Tosha Rust RN - Comment: post op) ONCE PRN, Starting on Fri07/30/21 at 0822 , Until Fri07/30/21 at 1211, Intra- Operative (Intra-Procedure), Routine povidone-iodine (Betadine Ophthalmic Prep) 5 % ophthalmic soluti on (CANCELED) 0754 (Given - Provider: Tosha Rust RN)0755 (Given - Provider: Tosha Rust RN - Comment: prep) ONCE PRN, Starting on Fri07/30/21 at 0754 , Until Fri07/30/21 at 1211, Intra- Operative (Intra-Procedure), Routine tetracaine (PF) (Pontocaine) ophthalmic solution (CANCELED) 0754 (Given - Provider: Tosha Rust, NEGRITO) ONCE PRN, Starting on Fri07/30/21 at 0754 , Until Fri07/30/21 at 1211, Intra- Operative (Intra-Procedure), Routine documented in this encounter Care Teams Gang Punch Operator Relationship Specialty Start Date End Date Amber Kraus MD PCP - General 04/19/10 [address] [place] [address] documented as of this encounter
--- OUTSIDE RECORDS SUMMARY | 2022-01-11 03:24 | XMS_ITS | Encounter Summary ---
:1945 Author Organization [facility] [place] [address] Care Team Providers Name Role Phone Amber Kraus MD Primary Care Provider Reason for Visit Reason Comments Blurred Vision Eye Exam Consultation (Routine) - Closed Specialty Diagnoses / Procedures Referred By Contact Refer red To Contact Ophthalmology Diagnoses Unspecified visual loss Amber Kraus MD Jordan, Kelsey L, OD [address] [place] [address] [place] [address] Fax: Referral ID Status Reason Start Date Expiration Date Visits V isits Requested Authorized [id number] Closed Consult, Test 06/06/2020 06/06/2021 [facility] PCP Updated and/or Approved Encounter Details Date Type Department Care Team Description 09/06/2020 Office Visit Ophthalmology at [facility] C Sasha Trotter, Dislocated IOL (intraocular lens), posterior, left; [facility] OD Pseudophakia of both eyes; [facility] [place] [address] Center [phone] [place], [place] [address] Social History Tobacco Use Types Packs/Day Years Used Date Smoking Tobacco: Some Days Cigarettes Smokeless Tobacco: Never Comments: quit at age 43 Alcohol Use Standard Drinks/Week Comments Yes 0 (1 standard drink = 0.6 oz pure alcoho l) Occasional Sex Assigned at Date Recorded Not on file documented as of this encounter Progress Notes Sasha Trotter, OD - 09/06/2020 12:20 PM EDT Den Han is a 74 y.o. female who had concerns including Blurred Vision and Eye Exam. Encounter Diagnoses Name Primary? Dislocated IOL (intraocular lens), posterior, left ??? Pseudophakia of both eyes ??? Glaucoma suspect of both eyes Assessment: 1) Dislocated IOL OS s/p facial trauma in 2010 2) Pseudophakia OU by Dr. Kingston 3) High risk glaucoma suspect OU 4) Refractive error / presbyopia OU Plan: 1) Pt initially was too nervous for corrective surgery. Now interested in vitrectomy & lens exchange. Retina consult within 1-2 months. 2) Monitor. 3) Needs full glaucoma work-up. Address dislocated IOL first. 4) Hold off. Follow up: 1 month retina consult for dislocated IOL OS. documented in this encounter Plan of Treatment Not on filedocumented as of this encounter Visit Diagnoses Diagnosis Dislocated IOL (intraocular lens), poste rior, left Pseudophakia of both eyes Lens replaced by other means Glaucoma suspect of both eyes Preglaucoma, unspecified documented in this encounter Care Teams [employer] Dive Training Instructor Relationship Specialty Start Date End Date Amber Kraus MD PCP - General 04/19/10 [address] [place] [address] documented as of this encounter
--- OUTSIDE RECORDS SUMMARY | 2022-01-11 03:24 | XMS_ITS | Encounter Summary ---
:1945 Author Organization [facility] [place] [address] Care Team Providers Name Role Phone Amber Kraus MD Primary Care Provider Reason for Visit Reason Comments Blurred Vision Encounter Details Date Type Department Care Team Description 12/15/2020 Office Visit Ophthalmology at [facility] C Moraima Dislocated IOL (intraocular lens), posterior, left; [facility] MD Sourav Advanced dry age-related macular degener ation of both eyes with [place] [address] Center [phone] [place], [place] [address] Social History Tobacco Use Types Packs/Day Years Used Date Smoking Tobacco: Some Days Cigarettes Smokeless Tobacco: Never Comments: quit at age 43 Alcohol Use Standard Drinks/Week Comments Yes 0 (1 standard drink = 0.6 oz pure alcoho l) Occasional Sex Assigned at Date Recorded Not on file documented as of this encounter Progress Notes Sourav Valera MD - 12/15/2020 8:45 AM EDT ASSESSMENT/PLAN: 1. Dislocated IOL (intraocular lens), posterior, left 2. 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 Dislocated IOL OSSurgical repair is recommended. Agreed to proceed with vitrectomy, pars plana lensectomy and secondary IOL (intrascleral 3-piece IOL- Yamane technique) The patient wishes to proceed with surgery under MAC. This surgery has some obvious benefits for thepatient, but also comes with the following risks: need for glasses, additional surgery, lens dislocation (early or late) retinal detachment, endophthalmitis, retinal artery occlusion, suprachoroidal hem orrhage, loss of vision, loss of eye. Also discussed the risks of anesthesia that will be discussed with anesthesia In case you take any of the following medications please follow the instructions below Heparin Lovenox (LMW) 24 hours Warfarin Coumadin 5 days Dabigatran Pradaxa 2 days to 4 days (based on renal function) Rivaroxaban Xarelto 2 days to 3 days Apixaban Eliquis 2 days to 3 days Aspirin 7 days to 14 days Clopidogrel Plavix 5 days 2. Dry AMD OU Den Han is a patient with age-related macular degeneration. Fortunately, today's fundoscopic exam and multimodal imaging confirmed that it is the dry form of the disease for which treatment with intravitreal injections is not required. Reassurance provided and a copy of [employer]'s written instructions were given to the patient (talking about AREDS2 vitamins, Amslergrid etc) CT Shannan 21.0 or 20.5 F/u HCK Sourav Valera MD, PhD Extended Ophthalmoscopy and drawing: Technique: 20D with scleral depression and 78D with the slit lamp Findings: Main Ophthalmology Exam External Exam Right Left External Normal Normal Slit Lamp Exam Right Left Lids/Lashes Normal Normal Conjunctiva/Sclera conj chemosis with some heme OU, but sclera well visualized and no lacerations White and quiet Cornea Clear Clear Anterior Chamber vit into AC nasally vit in AC Iris dilated dilated Lens PCIOL with ?vitreous poking into AC nasally dislocated PCIOL in bag nasally with vit into the AC Fundus Exam Right Left Vitreous Normal Normal Disc dense PPA; thin rims ST & IT dense PPA; thin rims ST & IT C/D Ratio 0.8 0.8 Macula central atrophy central atrophy Vessels Normal Normal Periphery RPE atrophy RPE atrophy, Plan: See assessment and plan (exam note) documented in this encounter Plan of Treatment Not on filedocumented as of this encounter Procedures Procedure Name Priority Date/Time Associated Diagnosis Comme nts [id number] CALC Routine 12/15/2020 10:28 Dislocated IOL Results for this BY LASER AM EDT (intraocular lens), procedur e are in INTERFEROMETRY - OU - posterior, left the results BOTH EYES Advanced dry section. age-related macular degeneration of both eyes with subfoveal involvement documented in this encounter Results [id number] Calc By Laser Interferometry - OU - Both Eyes (12/15/2020 10:28 AM EDT) Anatomical Region Laterality Modality Other Specimen (Source) Anatomical Location Collection Method / Collectio n Time Received Time / Laterality Volume Narrative 12/15/2020 10:28 AM EDT Patient Hx Past Medical Hx ??Pt. ??has a past [facility] history of Arm laceration (09/20/2010), Arm laceration (09/20/2010), Cervical spine fracture (08/17/2010), Chronic pain, Epilepsy, Fac e lacerations (08/17/2010), Face lacerations (08/17/2010), Fracture of fac e bones (08/17/2010), Fx femoral condyle-closed (09/20/2010), Glaucoma julianne pect (07/13/2012), Nonexudative age-related macular degeneration ( 013), NSTEMI (non-ST elevated myocardial infarction) (09/05/2010), Righ t open fracture of ankle (08/15/2010), Right open fracture of ankl e (08/15/2010), Scalp laceration (08/17/2010), Strabismus, Tibial plateau fracture, left (08/15/2010), and Tibial plateau fracture, left (08/15/2010 ). Past Ophth Surg Hx ??Ophth surgical his tory includes: cataract removal/iol implant (OU x 4-5 years ago). Eye Meds ??FLUoxetine, HYDROcodone-acet aminophen, OXcarbazepine, carbidopa-levodopa, diphenhydrAMINE, met oprolol tartrate, and morphine IOL Biometry - Initial (source: [facility]) OD OS Date Performed 12/15/2020 ??9:42 AM 11/25 ??9:42 AM ?? Target Refraction 0 0 ?? Axial Length 24.78 (mm) 24.71 (mm) ?? Anterior Chamber Depth 4.84 (mm) ?? (mm) ?? Horizontal White to White 12.62 (mm) 12. 51 (mm) ?? Formula Used ? K's 41.56@127 / 41.74@037 41.48@171 / 42 .01@081 ? Add'l Comments/Discrepancies/Concerns: POM done by [facility] Sourav Valera MD [facility] SINTIALorne MALOU documented in this encounter Visit Diagnoses Diagnosis Dislocated IOL (intraocular lens), poste rior, left Advanced dry age-related macular degener ation of both eyes with subfoveal involvement documented in this encounter Care Teams Husbandry Person Relationship Specialty Start Date End Date Amber Kraus MD PCP - General 04/19/10 [address] [place] [address] documented as of this encounter
--- OUTSIDE RECORDS SUMMARY | 2022-01-11 03:24 | XMS_ITS | Encounter Summary ---
:1945 Author Organization [facility] [place] [address] Care Team Providers Name Role Phone Amber Kraus MD Primary Care Provider Reason for Visit Reason Onset Date Comments Eye Problem 01/09/2021 eye pain Encounter Details Date Type Department Care Team Description 01/09/2021 Telephone Ophthalmology at [facility] Sophie Valera, Eye Problem (eye pain) [facility] [place] [address] [facility] [phone] [place], [place] [address] Social History Tobacco Use Types Packs/Day Years Used Date Smoking Tobacco: Some Days Cigarettes Smokeless Tobacco: Never Comments: quit at age 43 Alcohol Use Standard Drinks/Week Comments Yes 0 (1 standard drink = 0.6 oz pure alcoho l) Occasional Sex Assigned at Date Recorded Not on file documented as of this encounter Miscellaneous Notes Telephone Encounter - Zabrina Welch, NEVIN - 01/12/2021 8:32 AM EST Called patient this AM to discuss eye pain and offer urgent appointment. Patient declines appointment, her eye pain is much better today, 03/05. She was just diagnosed with pneumonia and feels that was effecting/clouding her thoughts the other day when she called. She reports on pain medications for other health issues, describes the eye pain as an ache, not real bad pain. Also, just diagnosed with Parkinson's. She is anxious for eye surgery and wanted DM to know, I will be better and ready next week for surgery if able to schedule. Explained/reassured about the surgical scheduling process. Patient indicates, she does understand and will await call from surgical team. Telephone Encounter - Liana Taveras - 01/09/2021 11:05 AM EST Called pt back to discuss her symptoms. She stated that she has pain OU that is unchanged since her last visit with Dr. Valera though today she rates it as 10. She has not tried tylenol or ibuprofen for her symptoms but when advised to try using AT PRN for comfort, she agreed to try. Offered DOC appointment today in case there have been any changes but she does not wish to be seen until her surgery. She is very anxious to have her surgery scheduled and I communicated with her that the surgical schedulers will reach out and schedule the surgery as appropriate. Telephone Encounter - Joanne Ybarra - 01/09/2021 10:22 AM EST Which eye: left Onset: gradual Duration (24 hours, days, weeks, etc): a few years New problem vs ongoing: ongoing Do symptoms come/go or constant or worsening: worsening Does the patient have a routine eye provider: DM Have they been seen for this problem by their provider & if so, when: yes Brief description/details of problem in patients words: Pts OS is very painful she has to tape the eye closed it hurts so bad. She saw DM, but was told she can't have surgery until next year. Sheis wondering if there is numbing eye drops or something she can do in the meantime to help with the pain. it is effecting my life, I am 78 years old and don't have much time left, I cry all day because it hurts so bad Action taken? (Appt booked, phone call transferred to, etc): sending message to triage, please call pt back to discuss. Also sent pt to surgical schedulers to discuss scheduling surgery. documented in this encounter Plan of Treatment Not on filedocumented as of this encounter Visit Diagnoses Not on filedocumented in this encounter Care Teams Director Of Security Relationship Specialty Start Date End Date Amber Kraus MD PCP - General 04/19/[birth year] [address] [place] [address] documented as of this encounter
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
--- OUTSIDE RECORDS SUMMARY | 2022-01-11 03:24 | XMS_ITS | Encounter Summary ---
:1945 Author Organization [facility] [address] Care Team Providers Name Role Phone Amber Kraus MD Primary Care Provider Encounter Details Date Type Department Care Team Description 11/01/2010 Hospital Encounter XRay at [facility] Tibia and fibula open [address] [place] [address], [place] [phone] Social History Tobacco Use Types Packs/Day [...] Take 1 tablet by 30 tablet 0 07/28/2 011 10/21/2012 tablet mouth daily. HEPARIN Inject [...] Priority Date/Time Associated Diagnosis Comme nts XR TIBIA FIBULA AP Routine 11/01/2010 5:00 PM Open fracture of Results for this AND LATERAL EDT unspecified part of procedur e are in fibula with tibia the result s section. documented in this encounter Results XR TIBIA FIBULA AP & LATERAL (11/01/2010 5:00 PM EDT) Anatomical Region Laterality Modality N/A Radiographic Imaging Specimen (Source) Anatomical Collection Method Collection Time Re ceived Time Location / / Volume Laterality 11/01/2010 5:00 PM EDT Impressions 11/05/2010 7:32 AM EDT IMPRESSION: ?? Question minimal increased projection of third fixation screw through medial tibial cortex versus artifact due to sli ght difference in projection. Alignment is stable. Narrative 11/05/2010 7:32 AM EDT LEFT TIB/FIB, 11/01/10: HISTORY: ??Followup lateral plateau frac ture. ?? FINDINGS: ??In the frontal projection, t he third fixation screw appears to project more medially beyond the medial tibial cortex than on previous studies despite what appears to be a similar pro jection. There is no evidence of any change in alignment and alignment remain s anatomic. Therefore, this may simply be artifact. Continued evaluation of thi s area recommended on followup films. Remainder of the hardware appears stable . A fixation screw in the ankle appears stable. Alignment of the ankle appears s table. There is no significant step-off at the tibial plateau. ?? Procedure Note Millicent Mccracken MD - 10/25 LEFT TIB/FIB, 11/01/10: HISTORY: Followup lateral plateau fractu re. FINDINGS: In the frontal projection, the third fixation screw appears to project more medially beyond the medial tibial cortex than on previous studies despite what appears to be a similar pro jection. There is no evidence of any change in alignment and alignment remain s anatomic. Therefore, this may simply be artifact. Continued evaluation of thi s area recommended on followup films. Remainder of the hardware appears stable . A fixation screw in the ankle appears stable. Alignment of the ankle appears s table. There is no significant step-off at the tibial plateau. IMPRESSION IMPRESSION: Question minimal increased projection of third fixation screw through medial tibial cortex versus artifact due to sli ght difference in projection. Alignment is stable. Kenneth Lord MD IMG DX ORDERABLES documented in this encounter Visit Diagnoses Diagnosis Tibia and fibula open fracture, right Open fracture of unspecified part of fib nirali with tibia documented in this encounter Care Teams Sales Representative Electric Service Relationship Specialty Start Date End Date Amber Kraus MD PCP - General 04/19/10 [address] [place] [address] documented as of this encounter
--- OUTSIDE RECORDS SUMMARY | 2022-01-11 03:25 | XMS_ITS | Encounter Summary ---
:1945 Author Organization [facility] [place] [address] Care Team Providers Name Role Phone Amber Kraus MD Primary Care Provider Encounter Details Date Type Department Care Team Description 10/11/2010 Hospital Encounter XRay [place] [facility] Tibial plateau fracture [address] [place] [address] [place] [phone] Social History Tobacco Use Types Packs/Day [...] tablet by Per G 60 tablet 0 1 10/21/2012 (LOPRESSOR) 50 mg Tube route [...] Comme nts XR TIBIA FIBULA AP Routine 10/11/2010 9:54 AM Tibial plateau R esults for this AND LATERAL EDT fracture procedure are i n the results section. documented in this encounter Results XR tibia fibula AP & lateral (10/11/2010 9:54 AM EDT) Anatomical Region Laterality Modality N/A Radiographic Imaging Specimen (Source) Anatomical Collection Method Collection Time Re ceived Time Location / / Volume Laterality 10/11/2010 9:54 AM EDT Impressions 10/12/2010 8:38 AM EDT IMPRESSION: 1. Stable alignment of the left tibial p lateau fracture. ?? 2. Stable alignment of the right trimall eolar fracture. ? Film and interpretation reviewed by the attending Narrative 10/12/2010 8:38 AM EDT TWO VIEWS OF THE LEFT TIBIA AND FIBULA, AND THREE VIEWS OF THE RIGHT ANKLE, OCTOBER 11, 2010: HISTORY: ??Status post ORIF right open a nkle fracture and left tibial plateau fracture. ?? COMPARISON: ??Two views of the left tibi a and fibula, September 03, 2010 and three views of the right ankle, August 31, 2010. ?? FINDINGS: ?? TIBIA-FIBULA: ??The lateral plate with m ultiple screws transfixing the left tibial plateau fracture are unchanged, w ithout evidence of hardware failure. ?? The fracture line is not well seen. ??Th ere is an additional screw within the distal tibia, crossing the syndesmosis, with an associated lucency surrounding the tip of a screw, which is unchanged. ??The comminuted fracture of the left fibular head is unchanged in alignment, which is near-anatomic. ??No acute fracture is identified. ?? RIGHT ANKLE: ??The surgical hardware thr ough the distal fibula and tibia is unchanged, without evidence of hardware failure. ??These transfix trimalleolar fracture. ??The mortise remains congruen t. ??The fractures are unchanged in alignment. ??Diffuse bony demineralizati on is present. ?? Procedure Note Neto Aldridge MD - 10/12/2010Formattin g of this note might be different from the original. TWO VIEWS OF THE LEFT TIBIA AND FIBULA, AND THREE VIEWS OF THE RIGHT ANKLE, OCTOBER 11, 2010: HISTORY: Status post ORIF right open ank le fracture and left tibial plateau fracture. COMPARISON: Two views of the left tibia and fibula, September 03, 2010 and three views of the right ankle, August 31, 2010. FINDINGS: TIBIA-FIBULA: The lateral plate with mul tiple screws transfixing the left tibial plateau fracture are unchanged, w ithout evidence of hardware failure. The fracture line is not well seen. Ther e is an additional screw within the distal tibia, crossing the syndesmosis, with an associated lucency surrounding the tip of a screw, which is unchanged. The comminuted fracture of the left fibular head is unchanged in alignment, which is near-anatomic. No acute fracture is identified. RIGHT ANKLE: The surgical hardware throu gh the distal fibula and tibia is unchanged, without evidence of hardware failure. These transfix trimalleolar fracture. The mortise remains congruent. The fractures are unchanged in alignment. Diffuse bony demineralization is present. IMPRESSION IMPRESSION: 1. Stable alignment of the left tibial p lateau fracture. 2. Stable alignment of the right trimall eolar fracture. Film and interpretation reviewed by the attending Santos Lunsford MD IMG DX ORDERABLES documented in this encounter Visit Diagnoses Diagnosis Tibial plateau fracture Closed fracture of upper end of tibia documented in this encounter Care Teams Hand Mexican Food Maker Relationship Specialty Start Date End Date Amber Kraus MD PCP - General 04/19/10 [address] [place] [address] documented as of this encounter
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
--- OUTSIDE RECORDS SUMMARY | 2022-01-11 03:25 | XMS_ITS | Encounter Summary ---
:1945 Author Organization [facility] [place] [address] Care Team Providers Name Role Phone Amber Kraus MD Primary Care Provider Reason for Referral Psychiatric (Routine) - Closed by system - Referral Specialty Diagnoses / Procedures Referred By Contact Refer red To Contact Psychiatry Diagnoses PTSD (post-traumatic stress disorder) [facility] Kylee Huff, PhD Procedures CBT PTSD - Christa Jean Baptiste [facility] [address] [facility] [place] [address] MED [place] [id number] Phone: Fax: Referral ID Status Reason Start Expiration Visits Visits Date Date Requested Authorized [id number] Closed by Consult, 10/02/2010 03/31/2011 1 1 system - Test & Referral Treat Encounter Details Date Type Department Care Team Description 10/02/2010 Orders Only [facility] PTSD (po st-traumatic [place] stress disorder) [facility] (Pr imary Dx) [place] [address] [facility] [phone] [place] [address] Social History Tobacco Use Types Packs/Day Years Used Date Smoking Tobacco: Never Assessed Sex Assigned at Date Recorded Not on file documented as of this encounter Plan of Treatment Scheduled Referrals Name Type Priority Associated Order Schedule Diagnoses REFERRAL TO Outpatient Referral Routine PTSD Ordered: PSYCHIATRY (post-traumatic 10/02/2010 stress disorder) documented as of this encounter Visit Diagnoses Diagnosis PTSD (post-traumatic stress disorder) - Primary Posttraumatic stress disorder documented in this encounter Care Teams Business Transformation Consultant Relationship Specialty Start Date End Date Amber Kraus MD PCP - General 04/19/10 [address] [place] [address] documented as of this encounter
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
--- OUTSIDE RECORDS SUMMARY | 2022-01-11 03:25 | XMS_ITS | Encounter Summary ---
:1945 [place] [address] Care Team Providers Name Role Phone Amber Kraus MD Primary Care Provider Encounter Details Date Type Department Care Team Description 08/20/2010 Anesthesia Event Main Operating Room Yaya Haynes MD [facility] [place] [address] [place] [address] [phone] Anesthesia Record Procedure Summary Procedure Name Responsible Anesthesia Start Anesthesia Stop Anesthesiologist Time Time @ORIF TIBIAL PLATEAU Yaya Cleaning MD 08/20/10 1134 1326 (PROXIMAL) BICONDYLAR (WRVU 17.39) (Left: Leg Lower) Events Date Time Event Comment 08/20/2010 1025 1134 Start 1326 Stop No medications on file. Agents No agents on file. Blood No blood administrations on file. Lines, Drains, and Airways Type Details Placement Removal (RETIRED) Wound 08/15/10 2200 by Melody Berry RN (RETIRED) Wound 08/15/10 2200 by Melody Berry RN Incision 08/15/10; leg; 10/22/21 08/15/10 0000 by Norma Campbell 10/22/21 1715 by (LDA cleanup utility NEGRITO Quezada Die rdre L RA#[id number]); 1715 (LDA cleanup utility RA#[id number]) Urethral Catheter 08/15/10; 2200; 08/15/10 2200 by 09/02/10 0700 by indwelling double lumen Melody Berry, Stephania Campos RN catheter; in place; RN 09/02/10; 0700 PIV 08/15/10; 2300; 08/15/10 2300 by 06/09/17 0921 b y 06/09/17 (Auto removal Melody Berry, Edwige , User via utility); 0921 RN (Auto removal via utility) (RETIRED) Central 08/16/10 2128 by 08/22/10 1501 by Melody Acuña Birchenough, Steven Assessment/Interventi RN Silvia, RN on - triple lumen (RETIRED) 08/20/10 0000 by 08/29/10 1445 b y Non-Surgical Airway Karla Coronado, Murali Braun RT Incision 08/20/10; 1205; leg; 08/20/10 1205 by 10/22/21 1 715 by 10/22/21 (LDA cleanup Gareth Valdovinos, Michael Polo utility RA#[id number]); 1715 (LDA cleanup utility RA#[id number]) documented in this encounter Social History Tobacco Use Types Packs/Day Years Used Date Smoking Tobacco: Never Assessed Sex Assigned at Date Recorded Not on file documented as of this encounter OR Notes Anesthesia Postprocedure Evaluation - Yaya Cleaning MD - 08/20/2010 3:10 PM EDT Patient: Den Han Procedure(s) Performed: ??ORIF TIBIAL PLATEAU (PROXIMAL) BICONDYLAR - Need: Barrett Table Large C-arm Isamar Synthe[employer] Plating System Patient location: ICU Post-op pain: Adequate analgesia Post-op nausea: no nausea or vomiting Last Vitals: Filed Vitals: 08/20/10 1400 BP: 95/50 Pulse: 96 Temp: 36.8 ??C (98.2 ??F) Resp: 18 Post-op cardiovascular and respiratory status: is stable Level of consciousness: sedated Complications: no apparent complications Fluid Status: normal Anesthesia Preprocedure Evaluation - Yaya Cleaning MD - 08/20/2010 10:24 AM EDT Anesthesia Evaluation Airway Mallampati: II TM distance: >3 FB Neck ROM: limited Dental Pulmonary - normal exam Cardiovascular - normal exam Neuro/Psych GI/Hepatic/Renal Endo/Other Abdominal Anesthesia Plan ASA 3 General with intravenous induction documented in this encounter Miscellaneous Notes Addendum Note - Amber Roca - 08/21/2010 9:34 AM EDT Addendum created 08/21/10 0934 by Amber Roca Modules edited:Anesthesia Events, Anesthesia Responsible Staff documented in this encounter Plan of Treatment Not on filedocumented as of this encounter Visit Diagnoses Not on filedocumented in this encounter Care Teams Outside Laborer Relationship Specialty Start Date End Date Amber Kraus MD PCP - General 04/19/10 [address] [place] [address] documented as of this encounter
--- OUTSIDE RECORDS SUMMARY | 2022-01-11 03:25 | XMS_ITS | Encounter Summary ---
:1945 Author Organization [facility] [place] [address] Care Team Providers Name Role Phone Amber Kraus MD Primary Care Provider Encounter Details Date Type Department Care Team Description 10/23/2010 Abstract Neurosurgery at [facility] [place]ila Lopez MD [facility] [place] [address] NEUROSURGERY DEPT. [phone] [place], [place] [address] (Wo rk) Social History Tobacco Use Types Packs/Day Years Used Date Smoking Tobacco: Former Cigarettes Comments: quit at age 43 Sex Assigned at Date Recorded Not on file documented as of this encounter Plan of Treatment Not on filedocumented as of this encounter Visit Diagnoses Not on filedocumented in this encounter Care Teams Probation Counselor Relationship Specialty Start Date End Date Amber Kraus MD PCP - General 04/19/10 [address] [place] [address] documented as of this encounter
--- OUTSIDE RECORDS SUMMARY | 2022-01-11 03:25 | XMS_ITS | Encounter Summary ---
:1945 Author Organization [facility] [place] [address] Care Team Providers Name Role Phone Amber Kraus MD Primary Care Provider Reason for Visit Reason Onset Date Comments Physical Therapy 10/16/2010 Encounter Details Date Type Department Care Team Description 10/16/2010 Telephone Orthopaedics at [facility] Elke Dubon, Physical Therapy [facility] [place] [address] Social History Tobacco Use Types Packs/Day Years Used Date Smoking Tobacco: Former Cigarettes Comments: quit at age 43 Sex Assigned at Date Recorded Not on file documented as of this encounter Miscellaneous Notes Telephone Encounter - Elke Dubon RN - 10/16/2010 8:39 AM EDT [place] the physical therapist from [facility] called looking for clarification in PT orders from . Wondering whether she should keep her L knee immobilizer on and whether she could do ROM? Can her R ankle be out of aircast? Can she do R ankle ROM? Per Dr. Lord: She can do ROM exercises out of the knee brace - she needs to use the ankle bracewhen she ambulates or stands [place] advised. documented in this encounter Plan of Treatment Not on filedocumented as of this encounter Visit Diagnoses Not on filedocumented in this encounter Care Teams Biomass Technician Relationship Specialty Start Date End Date Amber Kraus MD PCP - General 04/19/10 [address] [place], [place] [id number] documented as of this encounter
--- OUTSIDE RECORDS SUMMARY | 2022-01-11 03:25 | XMS_ITS | Encounter Summary ---
:1945 Author Organization [facility] [place] [address] Care Team Providers Name Role Phone Amber Kraus MD Primary Care Provider Encounter Details Date Type Department Care Team Description 09/18/2010 Office Visit Vascular Surgery [place] [facility] [place] [address] Social History Tobacco Use Types Packs/Day Years Used Date Smoking Tobacco: Never Assessed Sex Assigned at Date Recorded Not on file documented as of this encounter Miscellaneous Notes Miscellaneous - Anatoliy Explosives Operator - 09/24/2010 12:36 PM EDT documented in this encounter Plan of Treatment Not on filedocumented as of this encounter Visit Diagnoses Not on filedocumented in this encounter Care Teams Combo Welder Relationship Specialty Start Date End Date Amber Kraus MD PCP - General 04/19/10 [address] [place] [address] documented as of this encounter
--- OUTSIDE RECORDS SUMMARY | 2022-01-11 03:25 | XMS_ITS | Encounter Summary ---
:1945 Author Organization [facility] [place] [address] Care Team Providers Name Role Phone Amber Kraus MD Primary Care Provider Encounter Details Date Type Department Care Team Description 09/03/2010 Office Visit Vascular Surgery at [facility] Santos Lopez, [facility] [place] [address] Social History Tobacco Use Types Packs/Day Years Used Date Smoking Tobacco: Never Assessed Sex Assigned at Date Recorded Not on file documented as of this encounter Miscellaneous Notes Miscellaneous - Main Cope - 09/21/2010 1:48 PM EDT documented in this encounter Plan of Treatment Not on filedocumented as of this encounter Visit Diagnoses Not on filedocumented in this encounter Care Teams Residential Real Estate Sales Manager Relationship Specialty Start Date End Date Amber Kraus MD PCP - General 04/19/10 [address] [place], [place] [address] documented as of this encounter
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
--- OUTSIDE RECORDS SUMMARY | 2022-01-11 03:25 | XMS_ITS | Encounter Summary ---
:1945 Author Organization [facility] [address] Care Team Providers Name Role Phone Amber Kraus MD Primary Care Provider Encounter Details Date Type Department Care Team Description 08/20/2010 Office Visit Vascular Surgery at [facility] Ivonne Segundo, [facility] [place] [address] Social History Tobacco Use Types Packs/Day Years Used Date Smoking Tobacco: Never Assessed Sex Assigned at Date Recorded Not on file documented as of this encounter Plan of Treatment Not on filedocumented as of this encounter Visit Diagnoses Not on filedocumented in this encounter Care Teams Creative Arts Therapist Relationship Specialty Start Date End Date Amber Kraus MD PCP - General 04/19/10 [address] [place] [address] documented as of this encounter
--- OUTSIDE RECORDS SUMMARY | 2022-01-11 03:25 | XMS_ITS | Encounter Summary ---
:1945 Author Organization [facility] [place] [address] Care Team Providers Name Role Phone Amber Kraus MD Primary Care Provider Encounter Details Date Type Department Care Team Description 10/23/[address] [facility] Leila Lopez MD [facility] [place] [address] NEUROSURGERY DEPT. [phone] [place], [place] [address] (Wo rk) Social History Tobacco Use Types Packs/Day Years Used Date Smoking Tobacco: Former Cigarettes Comments: quit at age 43 Sex Assigned at Date Recorded Not on file documented as of this encounter Plan of Treatment Not on filedocumented as of this encounter Visit Diagnoses Not on filedocumented in this encounter Care Teams Brake Repair Supervisor Relationship Specialty Start Date End Date Amber Kraus MD PCP - General 04/19/10 [address] [place] [address] documented as of this encounter
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
--- OUTSIDE RECORDS SUMMARY | 2022-01-11 03:26 | XMS_ITS | Encounter Summary ---
:1945 Author Organization [facility] [place] [address] Care Team Providers Name Role Phone Amber Kraus MD Primary Care Provider Encounter Details Date Type Department Care Team Description 08/17/2010 Office Visit Vascular Surgery at [facility] Antonina [place] [address] Social History Tobacco Use Types Packs/Day Years Used Date Smoking Tobacco: Never Assessed Sex Assigned at Date Recorded Not on file documented as of this encounter Plan of Treatment Not on filedocumented as of this encounter Visit Diagnoses Not on filedocumented in this encounter Care Teams Natural Resources Faculty Member Relationship Specialty Start Date End Date Amber Kraus MD PCP - General 04/19/10 [address] [place] [address] documented as of this encounter
--- OUTSIDE RECORDS SUMMARY | 2022-01-11 03:26 | XMS_ITS | Encounter Summary ---
:1945 Author Organization [facility] [place] [address] Care Team Providers Name Role Phone Amber Kraus MD Primary Care Provider Encounter Details Date Type Department Care Team Description 08/16/2010 Office Visit Vascular Surgery at Antonina Tsai [facility] ([facility] Cancelled) [place] [address] Social History Tobacco Use Types Packs/Day Years Used Date Smoking Tobacco: Never Assessed Sex Assigned at Date Recorded Not on file documented as of this encounter Plan of Treatment Not on filedocumented as of this encounter Visit Diagnoses Not on filedocumented in this encounter Care Teams Weed Controller Relationship Specialty Start Date End Date Amber Kraus MD PCP - General 04/19/10 [address] [place] [address] documented as of this encounter
--- OUTSIDE RECORDS SUMMARY | 2022-01-11 03:30 | XMS_ITS | Encounter Summary ---
:1945 [place] [address] Care Team Providers Name Role Phone Amber Kraus MD Primary Care Provider Encounter Details Date Type Department Care Team Description 08/15/2010 Hospital Encounter [facility] at at Tosha Leahy, Jarrett Lewis MD [facility] [address] [place] [address] [place] [address] [phone] (Wo rk) Social History Tobacco Use Types Packs/Day Years Used Date Smoking Tobacco: Never Assessed Sex Assigned at Date Recorded Not on file documented as of this encounter Medications at Time of Discharge Medication Sig Dispensed Refills Start Date End Date carbidopa-levodopa Take 1 tablet by 0 09/20/2010 (SINEMET) 25-250 mg per mouth every evening. tablet famotidine (PEPCID) 20 1 tablet by Per G 30 tablet 0 201009/20/2011 mg tablet Tube route 2 times daily. fentaNYL (DURAGESIC) 25 Place 1 patch onto 1 patch 0 08/2509/24/2010 mcg/hr patch the skin every 72 hours for 3 days. acetaminophen (TYLENOL) Take 1 tablet by 30 tablet 0 201010/21/2012 500 mg tablet mouth every 6 hours. albuterol (PROVENTIL Inhale 2 puffs into 1 Inhaler 0 201010/21/2012 HFA;VENTOLIN HFA) 90 the lungs every 6 mcg/Actuation inhaler hours as needed for Wheezing. Use with spacer aspirin 81 mg chewable Take 1 tablet by 30 tablet 0 011 10/21/2012 tablet mouth daily. fentaNYL (DURAGESIC) 50 Place 1 patch onto 1 patch 0 08/2509/20/2010 mcg/hr patch the skin every 3 days for 3 days. fentaNYL (DURAGESIC) Place 1 patch onto 0 011 09/20/2010 the skin. Remove current 50mcg/hr fentanyl patch 09/21. Replace with 25mcg/hr fentanyl patch for three days, then d/c. HEPARIN Inject 0.5 mLs 0 09/20/2010 10/21/2012 [...] 1800 - 0600 at rate of 100ml/hr CIS Free Text Med - 0 04/19/201009/20 Multiple Vitamin DIPHENHYDRAMINE HCL 0 04/19/201009/20 ORAL OXCARBAZEPINE 0 04/19/2010 09/20/2010 (TRILEPTAL ORAL) CAPSICUM, CAYENNE, ORAL 0 04/19/2010 0 09/20/2010 OXYcodone (ROXICODONE) 0 04/19/2010 15 mg immediate release tablet VALACYCLOVIR HCL 0 04/19/2010 09/21/19 11 (VALTREX ORAL) FLAXSEED OIL ORAL 0 04/19/2010 011 CALCIUM 0 04/19/2010 09/20/2010 CARBONATE/VITAMIN D3 (CALCIUM 600 WITH VITAMIN D3 ORAL) carbidopa-levodopa 0 04/19/20102010 (SINEMET) 25-250 mg per tablet documented as of this encounter Plan of Treatment Not on filedocumented as of this encounter Visit Diagnoses Not on filedocumented in this encounter Care Teams Clockmaker Relationship Specialty Start Date End Date Amber Kraus MD PCP - General 04/19/10 [address] [place] [address] documented as of this encounter
--- OUTSIDE RECORDS SUMMARY | 2022-01-11 03:30 | XMS_ITS | Encounter Summary ---
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 8:25 Results for this AM EDT procedure are i n the results section. POCT GLUCOSE Routine 08/24/2010 8:22 Results for this AM EDT procedure are i n the results section. POCT GLUCOSE Routine 08/24/2010 4:10 Results for this AM EDT procedure are i n the results section. DIFFERENTIAL, STAT 08/24/2010 1:50 Results for this AUTOMATED AM EDT procedure are i n the results section. CBC (WITH DIFF) STAT 08/24/2010 1:50 Results f or this AM EDT procedure are i n the results section. PHOSPHORUS Routine 08/24/2010 1:50 Results for this AM EDT procedure are i n the results section. MAGNESIUM Routine 08/24/2010 1:50 Results for this AM EDT procedure are i n the results section. BASIC METABOLIC PANEL STAT 08/24/2010 1:50 Res ults for this (NON-FASTING) AM EDT procedure are in the results section. POCT GLUCOSE Routine 08/23/2010 11:52 Results for this PM EDT procedure are i n the results section. POCT GLUCOSE Routine 08/23/2010 7:47 Results for this PM EDT procedure are i n the results section. POCT GLUCOSE Routine 08/23/2010 4:43 Results for this PM EDT procedure are i n the results section. IR ALL NEURO Routine 08/23/2010 2:18 Results for this ANGIOGRAMS PM EDT procedure are i n the results section. POCT GLUCOSE Routine 08/23/2010 12:11 Results for this PM EDT procedure are i n the results section. POCT GLUCOSE Routine 08/23/2010 8:59 Results for this AM EDT procedure are i n the results section. POCT GLUCOSE Routine 08/23/2010 4:05 Results for this AM EDT procedure are i n the results section. DIFFERENTIAL, Routine 08/23/2010 3:00 Results for this AUTOMATED AM EDT procedure are i n the results section. CBC (WITH DIFF) Routine 08/23/2010 3:00 Results f or this AM EDT procedure are i n the results section. PHOSPHORUS Routine 08/23/2010 3:00 Results for this AM EDT procedure are i n the results section. MAGNESIUM Routine 08/23/2010 3:00 Results for this AM EDT procedure are i n the results section. BASIC METABOLIC PANEL Routine 08/23/2010 3:00 Res ults for this (NON-FASTING) AM EDT procedure are in the results section. POCT GLUCOSE Routine 08/23/2010 12:07 Results for this AM EDT procedure are i n the results section. BLOOD CULTURE STAT 08/22/2010 10:55 Results fo r this PM EDT procedure are i n the results section. BLOOD CULTURE STAT 08/22/2010 10:40 Results fo r this PM EDT procedure are i n the results section. URINE CULTURE Routine 08/22/2010 10:23 Results fo r this PM EDT procedure are i n the results section. URINALYSIS WITH REFLEX Routine 08/22/2010 10:20 R esults for this CULTURE PM EDT procedure are i n the results section. LOWER RESPIRATORY Routine 08/22/2010 10:20 CULTURE PM EDT POCT GLUCOSE Routine 08/22/2010 9:32 Results for this PM EDT procedure are i n the results section. POCT GLUCOSE Routine 08/22/2010 4:42 Results for this PM EDT procedure are i n the results section. POCT GLUCOSE Routine 08/22/2010 12:58 Results for this PM EDT procedure are i n the results section. POCT GLUCOSE Routine 08/22/2010 7:55 Results for this AM EDT procedure are i n the results section. POCT GLUCOSE Routine 08/22/2010 5:43 Results for this AM EDT procedure are i n the results section. POCT GLUCOSE Routine 08/22/2010 3:38 Results for this AM EDT procedure are i n the results section. DIFFERENTIAL, Routine 08/22/2010 1:30 Results for this AUTOMATED AM EDT procedure are i n the results section. CBC (WITH DIFF) Routine 08/22/2010 1:30 Results f or this AM EDT procedure are i n the results section. PHOSPHORUS Routine 08/22/2010 1:30 Results for this AM EDT procedure are i n the results section. MAGNESIUM Routine 08/22/2010 1:30 Results for this AM EDT procedure are i n the results section. BASIC METABOLIC PANEL Routine 08/22/2010 1:30 Res ults for this (NON-FASTING) AM EDT procedure are in the results section. POCT GLUCOSE Routine 08/22/2010 1:26 Results for this AM EDT procedure are i n the results section. POCT GLUCOSE Routine 08/21/2010 9:22 Results for this PM EDT procedure are i n the results section. POCT GLUCOSE Routine 08/21/2010 7:46 Results for this PM EDT procedure are i n the results section. POCT GLUCOSE Routine 08/21/2010 5:03 Results for this PM EDT procedure are i n the results section. XR CHEST ONE VIEW Routine 08/21/2010 4:46 Results for this PM EDT procedure are i n the results section. POTASSIUM Routine 08/21/2010 1:32 Results for this PM EDT procedure are i n the results section. POCT GLUCOSE Routine 08/21/2010 1:02 Results for this PM EDT procedure are i n the results section. POCT GLUCOSE Routine 08/21/2010 8:26 Results for this AM EDT procedure are i n the results section. DIFFERENTIAL, Routine 08/21/2010 4:45 Results for this AUTOMATED AM EDT procedure are i n the results section. CBC (WITH DIFF) Routine 08/21/2010 4:45 Results f or this AM EDT procedure are i n the results section. PHOSPHORUS Routine 08/21/2010 4:45 Results for this AM EDT procedure are i n the results section. MAGNESIUM Routine 08/21/2010 4:45 Results for this AM EDT procedure are i n the results section. BASIC METABOLIC PANEL Routine 08/21/2010 4:45 Res ults for this (NON-FASTING) AM EDT procedure are in the results section. POCT GLUCOSE Routine 08/21/2010 4:12 Results for this AM EDT procedure are i n the results section. POCT GLUCOSE Routine 08/21/2010 12:03 Results for this AM EDT procedure are i n the results section. XR CHEST ONE VIEW Routine 08/20/2010 9:31 Results for this PM EDT procedure are i n the results section. BLOOD CULTURE STAT 08/20/2010 9:07 Results for this PM EDT procedure are i n the results section. BLOOD CULTURE STAT 08/20/2010 9:07 Results for this PM EDT procedure are i n the results section. URINE CULTURE Routine 08/20/2010 9:03 Results for this PM EDT procedure are i n the results section. URINALYSIS WITH REFLEX Routine 08/20/2010 9:02 Re sults for this CULTURE PM EDT procedure are i n the results section. LOWER RESPIRATORY STAT 08/20/2010 9:02 Results for this CULTURE PM EDT procedure are i n the results section. NUCLEATED RED BLOOD STAT 08/20/2010 8:15 Resul ts for this CELLS PM EDT procedure are i n the results section. DIFFERENTIAL, STAT 08/20/2010 8:15 Results for this AUTOMATED PM EDT procedure are i n the results section. CBC (WITH DIFF) STAT 08/20/2010 8:15 Results f or this PM EDT procedure are i n the results section. POCT GLUCOSE Routine 08/20/2010 7:52 Results for this PM EDT procedure are i n the results section. POCT GLUCOSE Routine 08/20/2010 6:47 Results for this PM EDT procedure are i n the results section. XR ABDOMEN 1 VIEW Routine 08/20/2010 5:00 Results for this PM EDT procedure are i n the results section. BLOOD GAS 2 ARTERIAL Routine 08/20/2010 3:38 Resu lts for this PM EDT procedure are i n the results section. XR CHEST ONE VIEW Routine 08/20/2010 3:05 Results for this PM EDT procedure are i n the results section. DIFFERENTIAL, STAT 08/20/2010 2:30 Results for this AUTOMATED PM EDT procedure are i n the results section. CBC (WITH DIFF) STAT 08/20/2010 2:30 Results f or this PM EDT procedure are i n the results section. BASIC METABOLIC PANEL STAT 08/20/2010 2:30 Res ults for this (NON-FASTING) PM EDT procedure are in the results section. XR KNEE DIAGNOSTIC 1 Routine 08/20/2010 1:27 Resu lts for this OR 2 VIEW PM EDT procedure are i n the results section. POCT GLUCOSE Routine 08/20/2010 8:54 Results for this AM EDT procedure are i n the results section. DUPLEX FOR DVT BILAT Routine 08/20/2010 8:19 Resu lts for this LEGS AM EDT procedure are i n the results section. PREPARE RBC Routine 08/20/2010 7:52 Results for this AM EDT procedure are i n the results section. PREPARE RBC Routine 08/20/2010 7:50 Results for this AM EDT procedure are i n the results section. ORIF TIBIAL PLATEAU Routine 08/20/2010 7:45 (PROXIMAL) BICONDYLAR AM EDT ABORH TYPE MANUAL Routine 08/20/2010 6:28 Results for this AM EDT procedure are i n the results section. DIFFERENTIAL, Routine 08/20/2010 4:45 Results for this AUTOMATED AM EDT procedure are i n the results section. ABO/RH TYPING Routine 08/20/2010 4:45 Results for this AM EDT procedure are i n the results section. CBC (WITH DIFF) Routine 08/20/2010 4:45 Results f or this AM EDT procedure are i n the results section. ANTIBODY SCREEN Routine 08/20/2010 4:45 Results f or this AM EDT procedure are i n the results section. PREALBUMIN Routine 08/20/2010 4:45 Results for this AM EDT procedure are i n the results section. PHOSPHORUS Routine 08/20/2010 4:45 Results for this AM EDT procedure are i n the results section. MAGNESIUM Routine 08/20/2010 4:45 Results for this AM EDT procedure are i n the results section. BASIC METABOLIC PANEL Routine 08/20/2010 4:45 Res ults for this (NON-FASTING) AM EDT procedure are in the results section. TYPE AND SCREEN Routine 08/20/2010 4:39 ([facility] [place] AM EDT POCT GLUCOSE Routine 08/20/2010 4:27 Results for this AM EDT procedure are i n the results section. EKG 12-LEAD Routine 08/20/2010 3:15 Acute blood loss Results for this AM EDT anemia procedure are i n the results section. POCT GLUCOSE Routine 08/20/2010 12:23 Results for this AM EDT procedure are i n the results section. POCT GLUCOSE Routine 08/19/2010 7:57 Results for this PM EDT procedure are i n the results section. POCT GLUCOSE Routine 08/19/2010 3:47 Results for this PM EDT procedure are i n the results section. DIFFERENTIAL, Routine 08/19/2010 3:45 Results for this AUTOMATED PM EDT procedure are i n the results section. CBC (WITH DIFF) Routine 08/19/2010 3:45 Results f or this PM EDT procedure are i n the results section. LIPASE Routine 08/19/2010 3:45 Results for this PM EDT procedure are i n the results section. AMYLASE Routine 08/19/2010 3:45 Results for this PM EDT procedure are i n the results section. HEPATIC FUNCTION PANEL Routine 08/19/2010 3:45 Re sults for this PM EDT procedure are i n the results section. BASIC METABOLIC PANEL Routine 08/19/2010 3:45 Res ults for this (NON-FASTING) PM EDT procedure are in the results section. POTASSIUM Routine 08/19/2010 2:00 Results for this PM EDT procedure are i n the results section. POCT GLUCOSE Routine 08/19/2010 1:57 Results for this PM EDT procedure are i n the results section. POTASSIUM Routine 08/19/2010 10:00 Results for this AM EDT procedure are i n the results section. POCT GLUCOSE Routine 08/19/2010 9:54 Results for this AM EDT procedure are i n the results section. EKG 12-LEAD STAT 08/19/2010 8:43 Unspecified open Results for this AM EDT fracture of ankl e procedure are in Tibial plateau the results fracture section. Closed fracture of upper end of tibia POCT GLUCOSE Routine 08/19/2010 3:55 Results for this AM EDT procedure are i n the results section. DIFFERENTIAL, Routine 08/19/2010 2:34 Results for this AUTOMATED AM EDT procedure are i n the results section. CBC (WITH DIFF) Routine 08/19/2010 2:34 Results f or this AM EDT procedure are i n the results section. BASIC METABOLIC PANEL Routine 08/19/2010 2:34 Res ults for this (NON-FASTING) AM EDT procedure are in the results section. POCT GLUCOSE Routine 08/19/2010 12:36 Results for this AM EDT procedure are i n the results section. POCT GLUCOSE Routine 08/18/2010 8:00 Results for this PM EDT procedure are i n the results section. POCT GLUCOSE Routine 08/18/2010 6:09 Results for this PM EDT procedure are i n the results section. POTASSIUM Routine 08/18/2010 3:50 Results for this PM EDT procedure are i n the results section. POCT GLUCOSE Routine 08/18/2010 2:07 Results for this PM EDT procedure are i n the results section. EXTUBATE Routine 08/18/2010 8:42 AM EDT POCT GLUCOSE Routine 08/18/2010 8:07 Results for this AM EDT procedure are i n the results section. ENDOTRACHEAL TUBE LEAK Routine 08/18/2010 6:15 TEST AM EDT POTASSIUM Routine 08/18/2010 6:15 Results for this AM EDT procedure are i n the results section. POCT GLUCOSE Routine 08/18/2010 6:01 Results for this AM EDT procedure are i n the results section. DIFFERENTIAL, Routine 08/18/2010 2:00 Results for this AUTOMATED AM EDT procedure are i n the results section. CBC (WITH DIFF) Routine 08/18/2010 2:00 Results f or this AM EDT procedure are i n the results section. BASIC METABOLIC PANEL Routine 08/18/2010 2:00 Res ults for this (NON-FASTING) AM EDT procedure are in the results section. POCT GLUCOSE Routine 08/18/2010 1:54 Results for this AM EDT procedure are i n the results section. POCT GLUCOSE Routine 08/17/2010 9:08 Results for this PM EDT procedure are i n the results section. POTASSIUM Routine 08/17/2010 6:15 Results for this PM EDT procedure are i n the results section. POCT GLUCOSE Routine 08/17/2010 5:06 Results for this PM EDT procedure are i n the results section. DUPLEX FOR DVT BILAT Routine 08/17/2010 3:21 Resu lts for this LEGS PM EDT procedure are i n the results section. POCT GLUCOSE Routine 08/17/2010 1:01 Results for this PM EDT procedure are i n the results section. POTASSIUM Routine 08/17/2010 1:00 Results for this PM EDT procedure are i n the results section. POCT GLUCOSE Routine 08/17/2010 9:11 Results for this AM EDT procedure are i n the results section. POTASSIUM Routine 08/17/2010 9:10 Results for this AM EDT procedure are i n the results section. POCT GLUCOSE Routine 08/17/2010 4:11 Results for this AM EDT procedure are i n the results section. BLOOD GAS 2 ARTERIAL Routine 08/17/2010 4:05 Resu lts for this AM EDT procedure are i n the results section. SCAN, PERIPHERAL BLOOD Routine 08/17/2010 4:00 Re sults for this AM EDT procedure are i n the results section. DIFFERENTIAL, Routine 08/17/2010 4:00 Results for this AUTOMATED AM EDT procedure are i n the results section. CBC (WITH DIFF) Routine 08/17/2010 4:00 Results f or this AM EDT procedure are i n the results section. BASIC METABOLIC PANEL Routine 08/17/2010 4:00 Res ults for this (NON-FASTING) AM EDT procedure are in the results section. POCT GLUCOSE Routine 08/17/2010 12:03 Results for this AM EDT procedure are i n the results section. LACTATE, PLASMA STAT 08/16/2010 8:50 Results f or this PM EDT procedure are i n the results section. POCT GLUCOSE Routine 08/16/2010 7:54 Results for this PM EDT procedure are i n the results section. POCT GLUCOSE Routine 08/16/2010 6:01 Results for this PM EDT procedure are i n the results section. BLOOD GAS 2 ARTERIAL Routine 08/16/2010 6:00 Resu lts for this PM EDT procedure are i n the results section. DIFFERENTIAL, Routine 08/16/2010 6:00 Results for this AUTOMATED PM EDT procedure are i n the results section. CBC (WITH DIFF) Routine 08/16/2010 6:00 Results f or this PM EDT procedure are i n the results section. CT [place] OF DEVLIN W Routine 08/16/2010 4:10 Res ults for this CONTRAST PM EDT procedure are i n the results section. CT HEAD WO CONTRAST Routine 08/16/2010 4:10 Resul ts for this (GENERIC) PM EDT procedure are i n the results section. XR CHEST ONE VIEW Routine 08/16/2010 2:36 Results for this PM EDT procedure are i n the results section. ORIF BIMALLEOLAR ANKLE Routine 08/16/2010 12:53 FX. PM EDT REPAIR INTERMEDIATE Routine 08/16/2010 12:53 WOUND,20.1 TO 30.0CM, PM EDT SCALP REPAIR INTERMEDIATE Routine 08/16/2010 12:53 WOUND,, 7.6 TO 12.5CM, PM EDT UPPER EXTREMITY DEBRIDEMENT,REMOVAL Routine 08/16/2010 12:53 FB,ASSOC W/OPEN FX, PM EDT SKIN, SUBQ TISSUE LOW EXTR XR ABDOMEN 1 VIEW Routine 08/16/2010 11:11 Result s for this AM EDT procedure are i n the results section. PREPARE RBC Routine 08/16/2010 11:07 Results for this AM EDT procedure are i n the results section. XR ABDOMEN 1 VIEW Routine 08/16/2010 9:11 Results for this AM EDT procedure are i n the results section. POCT GLUCOSE Routine 08/16/2010 9:10 Results for this AM EDT procedure are i n the results section. SCAN, PERIPHERAL BLOOD STAT 08/16/2010 9:10 Re sults for this AM EDT procedure are i n the results section. NUCLEATED RED BLOOD STAT 08/16/2010 9:10 Resul ts for this CELLS AM EDT procedure are i n the results section. DIFFERENTIAL, STAT 08/16/2010 9:10 Results for this AUTOMATED AM EDT procedure are i n the results section. CBC (WITH DIFF) STAT 08/16/2010 9:10 Results f or this AM EDT procedure are i n the results section. BLOOD GAS 2 ARTERIAL Routine 08/16/2010 4:24 Resu lts for this AM EDT procedure are i n the results section. POCT GLUCOSE Routine 08/16/2010 3:58 Results for this AM EDT procedure are i n the results section. DIFFERENTIAL, Routine 08/16/2010 3:55 Results for this AUTOMATED AM EDT procedure are i n the results section. APTT Routine 08/16/2010 3:55 Results for this AM EDT procedure are i n the results section. PROTHROMBIN TIME Routine 08/16/2010 3:55 Results for this AM EDT procedure are i n the results section. CBC (WITH DIFF) Routine 08/16/2010 3:55 Results f or this AM EDT procedure are i n the results section. PHOSPHORUS Routine 08/16/2010 3:55 Results for this AM EDT procedure are i n the results section. MAGNESIUM Routine 08/16/2010 3:55 Results for this AM EDT procedure are i n the results section. LACTATE, PLASMA Routine 08/16/2010 3:55 Results f or this AM EDT procedure are i n the results section. COMPREHENSIVE Routine 08/16/2010 3:55 Results for this METABOLIC PANEL AM EDT procedure ar e in (NON-FASTING) the results section. BASIC METABOLIC PANEL Routine 08/16/2010 3:55 Res ults for this (NON-FASTING) AM EDT procedure are in the results section. XR KNEE DIAGNOSTIC 1 Routine 08/16/2010 2:59 Resu lts for this OR 2 VIEW AM EDT procedure are i n the results section. XR CHEST ONE VIEW Routine 08/16/2010 2:58 Results for this AM EDT procedure are i n the results section. XR ANKLE MINIMUM 3 Routine 08/16/2010 2:58 Result s for this VIEWS AM EDT procedure are i n the results section. BLOOD GAS 2 ARTERIAL Routine 08/16/2010 12:22 Res ults for this AM EDT procedure are i n the results section. XR ANKLE 2 VIEWS Routine 08/16/2010 12:02 Results for this AM EDT procedure are i n the results section. HEMOGRAM STAT 08/15/2010 11:55 Results for this PM EDT procedure are i n the results section. APTT STAT 08/15/2010 11:55 Results for this PM EDT procedure are i n the results section. PROTHROMBIN TIME STAT 08/15/2010 11:55 Results for this PM EDT procedure are i n the results section. LACTATE, PLASMA STAT 08/15/2010 11:55 Results for this PM EDT procedure are i n the results section. BASIC METABOLIC PANEL STAT 08/15/2010 11:55 Re sults for this (NON-FASTING) PM EDT procedure are in the results section. POCT GLUCOSE Routine 08/15/2010 11:31 Results for this PM EDT procedure are i n the results section. BLOOD GAS 2 ARTERIAL Routine 08/15/2010 10:42 Res ults for this PM EDT procedure are i n the results section. BLOOD GAS 2 ARTERIAL Routine 08/15/2010 10:10 Res ults for this PM EDT procedure are i n the results section. REPAIR INTERMEDIATE 08/15/2010 8:42 right open tri mal WOUND, (NO HANDS OR PM EDT ankle fracture and FEET) 7.6 TO 12.5CM, Left tibial plateau UPPER EXTREMITY (WRVU fracture 2.97) ORIF BIMALLEOLAR ANKLE 08/15/2010 8:42 right open tri mal FX. (WRVU 10.62) PM EDT ankle fracture and Left tibial plateau fracture REPAIR INTERMEDIATE 08/15/2010 8:42 right open tri mal WOUND, (NO HANDS OR PM EDT ankle fracture and FEET) 20.1 TO 30.0CM, Left tibial plateau SCALP (WRVU 4.23) fracture DEBRIDEMENT, REMOVAL 08/15/2010 8:42 right open tri ma l FB,ASSOC W/ OPEN PM EDT ankle fracture and FRACTURES, SKIN, SUB Q Left tibial platea u TISSUE LOWER EXTREMITY fracture (WRVU 4.19) XR FOREARM AP AND STAT 08/15/2010 8:35 Results for this LATERAL PM EDT procedure are i n the results section. XR HUMERUS STAT 08/15/2010 8:35 Results for this PM EDT procedure are i n the results section. XR ANKLE MINIMUM 3 STAT 08/15/2010 8:34 Result s for this VIEWS PM EDT procedure are i n the results section. XR TIBIA FIBULA AP AND STAT 08/15/2010 8:34 Re sults for this LATERAL PM EDT procedure are i n the results section. BLOOD GAS 2 ARTERIAL Routine 08/15/2010 7:49 Resu lts for this PM EDT procedure are i n the results section. CT LOWER EXTREMITY WO STAT 08/15/2010 7:19 Res ults for this CONTRAST PM EDT procedure are i n the results section. CT CHEST ABDOMEN Routine 08/15/2010 7:09 Results for this PELVIS W CONTRAST PM EDT procedure are in (GENERIC) the results section. CT LUMBAR SPINE WWO Routine 08/15/2010 7:09 Resul ts for this CONTRAST PM EDT procedure are i n the results section. CT THORACIC SPINE WO Routine 08/15/2010 7:09 Resu lts for this CONTRAST PM EDT procedure are i n the results section. CT CAROTIDS AND TULUKSAK Routine 08/15/2010 7:00 Re sults for this OF DEVLIN W CONTRAST PM EDT procedu re are in the results section. CT HEAD AND CERVICAL Routine 08/15/2010 7:00 Resu lts for this SPINE WO CONTRAST PM EDT procedure are in the results section. CT FACIAL WO CONTRAST Routine 08/15/2010 7:00 Res ults for this PM EDT procedure are i n the results section. XR CHEST ONE VIEW Routine 08/15/2010 6:19 Results for this PM EDT procedure are i n the results section. TYPE AND SCREEN STAT 08/15/2010 6:11 ([facility] [place] PM EDT DIFFERENTIAL, STAT 08/15/2010 6:10 Results for this AUTOMATED PM EDT procedure are i n the results section. ABO/RH TYPING STAT 08/15/2010 6:10 Results for this PM EDT procedure are i n the results section. APTT STAT 08/15/2010 6:10 Results for this PM EDT procedure are i n the results section. PROTHROMBIN TIME STAT 08/15/2010 6:10 Results for this PM EDT procedure are i n the results section. CBC (WITH DIFF) STAT 08/15/2010 6:10 Results f or this PM EDT procedure are i n the results section. ANTIBODY SCREEN STAT 08/15/2010 6:10 Results f or this PM EDT procedure are i n the results section. ETHANOL LEVEL STAT 08/15/2010 6:10 Results for this PM EDT procedure are i n the results section. BASIC METABOLIC PANEL STAT 08/15/2010 6:10 Res ults for this (NON-FASTING) PM EDT procedure are in the results section. 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 (09/21/2010 11:32 AM EDT) Anatomical Region Laterality Modality Other Narrative 09/21/2010 1:54 PM EDT Procedure Note Provider, Scanning - 09/21/2010 11:32 AM EDT Scanning Provider MEDIA MGR SCAN EXT ORDR/RSLT SCAN DOC: LAB (09/21/2010 11:21 AM EDT) Narrative 09/21/2010 11:21 AM EDT Procedure Note Provider, Scanning - 09/21/2010 11:21 AM EDT Scanning Provider MEDIA MGR SCAN EXT ORDR/RSLT SCAN DOC: LAB (09/21/2010 11:21 AM EDT) Narrative 09/21/2010 11:21 AM EDT Procedure Note Provider, Scanning - 09/21/2010 11:21 AM EDT Scanning Provider MEDIA MGR SCAN EXT ORDR/RSLT POCT GLUCOSE LAB USE ONLY (09/20/2010 6:11 AM EDT) P athologist Signature POC Glucose 137 60 - 199 CERNER mg/dL MILLENNIUM Comment: Supplemental ranges: <110 mg/dL before meals <200 mg/dL all other times of the day Specimen Anatomical Collection Method Collection Time Receive d Time (Source) Location / / Volume Laterality Blood specimen 09/20/2010 6:11 AM 011 6:11 (specimen) EDT AM EDT Benson Leahy MD POINT OF CARE TEST ORDERABLE S Performing Organization Address City/State/[place] [address] CERNER MILLENNIUM (ABNORMAL) REFLEX LAB-A-DIFF (09/20/2010 3:58 AM EDT) [facility] Method Time Signature Neutrophils % 61.2 34.0 - CERNER 71.0 % MILLENNIUM Neutr Abs (ANC) 4.29 1.50 - CERNER 6.30 MILLENNIUM x10(3)/mcL Lymphocytes % 21.5 19.0 - CERNER 53.0 % MILLENNIUM Lymphocytes Abs 1.5 1.0 - 3.6 CERNER x10(3)/mcL MILLENNIUM Monocytes % 9.6 4.0 - 13.0 CERNER % MILLENNIUM Monocyte Abs 0.7 0.2 - 1.0 CERNER x10(3)/mcL MILLENNIUM Eosinophils % 7.3 (H) 0.0 - 7.0 CERNER % MILLENNIUM Eosinophils Abs 0.5 0.0 - 0.5 CERNER x10(3)/mcL MILLENNIUM Basophils % 0.3 0.0 - 2.0 CERNER % MILLENNIUM Basophils Abs 0.0 0.0 - 0.2 CERNER x10(3)/mcL MILLENNIUM Immature Gran % 0.10 0.00 - CERNER 0.66 % MILLENNIUM Comment: Immature granulocytes(IG's)percentage an d absolute count will include metamyelocytes, myelocytes, and promyelo cytes. Blood smears from CBCs yielding IG's will be scanned manually for concor dance. If this scan disagrees with the automated IG or if promyelocytes are not ed, a manual differential will be performed. Liss Gran Abs 0.01 0.00 - 0.05 x10(3)/mcL CER NER MILLENNIUM Specimen Anatomical Collection Method Collection Time Receive d Time (Source) Location / / Volume Laterality Blood specimen 09/20/2010 3:58 AM 011 4:20 (specimen) EDT AM EDT Edu Jacobs MD HEMATOLOGY ORDERABLES Performing Organization Address City/State/[place] [address] CERNER MILLENNIUM (ABNORMAL) Basic Metabolic Panel (non-fasting) (09/20/2010 3:58 AM EDT) P athologist Signature Glucose Lvl 103 60 - 199 CERNER mg/dL MILLENNIUM Comment: Diabetes: >=200 mg/dL plus symp toms BUN 15 8 - 18 mg/dL CERNER MILLENNIUM Creatinine 0.34 (L) 0.70 - 1.20 mg/dL CERNER MILL ENNIUM Sodium 135 135 - 145 mmol/L CERNER ORLY NIUM Potassium 4.1 3.5 - 5.0 mmol/L CERNER ORLY NIUM Comment: Please note: ??Patients with WBC >100,00 0 may have falsely elevated Potassium levels. ??For accurate Potassium quantif ication in these patients send serum separator tube (gold top) for subsequent determinations. ??Contact the Clinical Chemistry Laboratory if there are any qu estions. Chloride 103 98 - 107 mmol/L CERNER MILLENN IUM CO2 25 22 - 31 mmol/L CERNER MILLENNI UM Anion Gap 7 5 - 15 mmol/L CERNER MILLENNIU M Calcium 8.9 8.5 - 10.5 mg/dL CERNER ORLY NIUM Estimated GFR >60 >=60 CERNER MILLENNIU M Comment: The National Kidney Disease Education Pr ogram (NKDEP) has recommended all laboratories report estimated GFR (eGFR) along with plasma creatinine measurements to assist you with recognit ion of early kidney disease. Caveats: ??Plasma creatinine should be a t steady-state (unchanged within the past week). For patient s multiply eGFR by 1.2.MDRD equation has not been validated for pediatric pat ients and is only valid for patients with age >= 18 years. At present, NKDEP does NOT recommend usi ng the MDRD equation for drug dosing purposes and pharmacists should continue to use their current dosing methods. In addition, numerical eGFR values great er than 60 ml/min/1.73 square meters should be treated as > 60, and not an ex act number due to greater inaccuracies at these higher values. Per NKDEP, they classify normal renal function as any GFR >60ml/min/1.73 square meters; chronic kidney disease wh en GFR <60, and renal failure when GFR <15. ??This calculation may not be valid for patients with atypical muscle mass (very lean or obese), acute renal failur e, and in patients with diabetic kidney disease. References: http://nkdep.nih.gov/resources/NKDEP_Sug gestn4Labs_0606_508.pdf http://www.kidney.org/professionals/kls/ pdf/faq_gfr.pdf Specimen Anatomical Collection Method Collection Time Receive d Time (Source) Location / / Volume Laterality Blood specimen 09/20/2010 3:58 AM 011 4:20 (specimen) EDT AM EDT Edu Jacobs MD CHEMISTRY ORDERABLES Performing Organization Address City/State/[facility] [place] [address] CERNER MILLENNIUM (ABNORMAL) CBC (with Diff) (09/20/2010 3:58 AM EDT) P athologist Signature WBC 7.0 4.0 - 10.0 CERNER x10(3)/mcL MILLENNIUM RBC 4.01 3.93 - CERNER 5.22 MILLENNIUM x10(6)/mcL Hemoglobin 10.9 (L) 11.2 - CERNER 15.7 gm/dL MILLENNIUM Hematocrit 33.6 (L) 34.0 - CERNER 45.0 % MILLENNIUM MCV 83.8 79.0 - CERNER 94.0 fL MILLENNIUM MCH 27.2 26.6 - CERNER 32.2 pg MILLENNIUM MCHC 32.4 32.0 - CERNER 36.5 gm/dL MILLENNIUM Platelets 512 (H) 145 - 370 CERNER x10(3)/mcL MILLENNIUM RDWSD 50.2 (H) 35.0 - CERNER 46.0 fL MILLENNIUM RDWCV 16.2 (H) 10.9 - CERNER 14.4 % MILLENNIUM MPV 9.3 9.0 - 12.0 CERNER fL MILLENNIUM Specimen Anatomical Collection Method Collection Time Receive d Time (Source) Location / / Volume Laterality Blood specimen 09/20/2010 3:58 AM 011 4:20 (specimen) EDT AM EDT Edu Jacobs MD HEMATOLOGY ORDERABLES Performing Organization Address City/State/ZIP Code Phon [place] [address] Y[address] CT head & cervical spine WO contrast (09/19/2010 4:07 PM EDT) Anatomical Region Laterality Modality Head Computed Tomography Specimen (Source) Anatomical Collection Method Collection Time Re ceived Time Location / / Volume Laterality 09/19/2010 4:07 PM EDT Narrative 09/20/2010 9:[address] OF THE HEAD AND CERVICAL SPINE: HISTORY: ?? Post head and cervical spine injury followup. HEAD CT: COMPARISON: ??The study of the head is c ompared to an examination done 08/28/10. ?? FINDINGS: ??No intracranial blood is see n at this time. ??The high-density material in the left maxillary sinus com patible with hemorrhage is still visible to an extent, but substantially less than previously. ??No other new abnormalities can be seen. OPINION: Small amount of residual left maxillary sinus blood, but no intracranial abnormality. CERVICAL CT: FINDINGS: ??Examination again shows the C6-C7 right-sided facet complex injury. ?? It would appear that there is some more right-sided rotational displacement of C6 on C7 than had been the case previous ly with the right lateral mass injury showing some increased distraction. ??Pr eviously commented upon widening of that disc space has disappeared. ??There is s ome C5-C6 degenerative change also. ??No other new abnormalities can be seen. OPINION: At the site of the C7 right-sided facet injury, there is now a bit more displacement than had been the case prev iously. ??No new abnormality is seen otherwise. Procedure Note Dani Crawford MD - 09/20/2010Format ting of this note might be different from the original. CT OF THE HEAD AND CERVICAL SPINE: HISTORY: Post head and cervical spine in jury followup. HEAD CT: COMPARISON: The study of the head is com pared to an examination done 08/28/10. FINDINGS: No intracranial blood is seen at this time. The high-density material in the left maxillary sinus com patible with hemorrhage is still visible to an extent, but substantially less than previously. No other new abnormalities can be seen. OPINION: Small amount of residual left maxillary sinus blood, but no intracranial abnormality. CERVICAL CT: FINDINGS: Examination again shows the C6 -C7 right-sided facet complex injury. It would appear that there is some more right-sided rotational displacement of C6 on C7 than had been the case previous ly with the right lateral mass injury showing some increased distraction. Prev iously commented upon widening of that disc space has disappeared. There is mateus e C5-C6 degenerative change also. No other new abnormalities can be seen. OPINION: At the site of the C7 right-sided facet injury, there is now a bit more displacement than had been the case prev iously. No new abnormality is seen otherwise. Edu Jacobs MD IMG CT ORDERABLES POCT GLUCOSE LAB USE ONLY (09/19/2010 6:47 AM EDT) athologist Signature POC Glucose 153 60 - 199 CERNER mg/dL MILLENNIUM Comment: Supplemental ranges: <110 mg/dL before meals <200 mg/dL all other times of the day Specimen Anatomical Collection Method Collection Time Receive d Time (Source) Location / / Volume Laterality Blood specimen 09/19/2010 6:47 AM 011 6:47 (specimen) EDT AM EDT Benson Leahy MD POINT OF CARE TEST ORDERABLE S Performing Organization Address City/State/ZIP Code Phon e Number [place] [phone] CERNER MILLENNIUM (ABNORMAL) REFLEX LAB-A-DIFF (09/19/2010 4:39 AM EDT) Patholo gist Method Time Signature Neutrophils % 66.4 34.0 - CERNER 71.0 % MILLENNIUM Neutr Abs (ANC) 7.72 (H) 1.50 - CERNER 6.30 MILLENNIUM x10(3)/mc L Lymphocytes % 18.1 (L) 19.0 - CERNER 53.0 % MILLENNIUM Lymphocytes Abs 2.1 1.0 - 3.6 CERNER x10(3)/mc MILLENNIUM L Monocytes % 9.0 4.0 - CERNER 13.0 % MILLENNIUM Monocyte Abs 1.1 (H) 0.2 - 1.0 CERNER x10(3)/mc MILLENNIUM L Eosinophils % 5.9 0.0 - 7.0 CERNER % MILLENNIUM Eosinophils Abs 0.7 (H) 0.0 - 0.5 CERNER x10(3)/mc MILLENNIUM L Basophils % 0.3 0.0 - 2.0 CERNER % MILLENNIUM Basophils Abs 0.0 0.0 - 0.2 CERNER x10(3)/mc MILLENNIUM L Immature Gran % 0.30 0.00 - CERNER 0.66 % MILLENNIUM Comment: Immature granulocytes(IG's)percentage an d absolute count will include metamyelocytes, myelocytes, and promyelo cytes. Blood smears from CBCs yielding IG's will be scanned manually for concor dance. If this scan disagrees with the automated IG or if promyelocytes are not ed, a manual differential will be performed. Liss Gran Abs 0.03 0.00 - 0.05 x10(3)/mcL CER NER MILLENNIUM Specimen Anatomical Collection Method Collection Time Receive d Time (Source) Location / / Volume Laterality Blood specimen 09/19/2010 4:39 AM 011 5:03 (specimen) EDT AM EDT Edu Jacobs MD HEMATOLOGY ORDERABLES Performing Organization Address City/State/[place] [address] CERNER MILLENNIUM (ABNORMAL) Basic Metabolic Panel (non-fasting) (09/19/2010 4:39 AM EDT) P athologist Signature Glucose Lvl 103 60 - 199 CERNER mg/dL MILLENNIUM Comment: Diabetes: >=200 mg/dL plus symp toms BUN 17 8 - 18 mg/dL CERNER MILLENNIUM Creatinine 0.42 (L) 0.70 - 1.20 mg/dL CERNER MILL ENNIUM Sodium 135 135 - 145 mmol/L CERNER ORLY NIUM Potassium 3.9 3.5 - 5.0 mmol/L CERNER ORLY NIUM Comment: Please note: ??Patients with WBC >100,00 0 may have falsely elevated Potassium levels. ??For accurate Potassium quantif ication in these patients send serum separator tube (gold top) for subsequent determinations. ??Contact the Clinical Chemistry Laboratory if there are any qu estions. Chloride 102 98 - 107 mmol/L CERNER MILLENN IUM CO2 21 (L) 22 - 31 mmol/L DAVID MACKEYI UM Anion Gap 12 5 - 15 mmol/L DAVID MILLENNIU M Calcium 9.5 8.5 - 10.5 mg/dL DAVID ORLY NIUM Estimated GFR >60 >=60 DAVID MACKEYIU M Comment: The National Kidney Disease Education Pr ogram (NKDEP) has recommended all laboratories report estimated GFR (eGFR) along with plasma creatinine measurements to assist you with recognit ion of early kidney disease. Caveats: ??Plasma creatinine should be a t steady-state (unchanged within the past week). For patient s multiply eGFR by 1.2.MDRD equation has not been validated for pediatric pat ients and is only valid for patients with age >= 18 years. At present, NKDEP does NOT recommend usi ng the MDRD equation for drug dosing purposes and pharmacists should continue to use their current dosing methods. In addition, numerical eGFR values great er than 60 ml/min/1.73 square meters should be treated as > 60, and not an ex act number due to greater inaccuracies at these higher values. Per NKDEP, they classify normal renal function as any GFR >60ml/min/1.73 square meters; chronic kidney disease wh en GFR <60, and renal failure when GFR <15. ??This calculation may not be valid for patients with atypical muscle mass (very lean or obese), acute renal failur e, and in patients with diabetic kidney disease. References: http://nkdep.nih.gov/resources/NKDEP_Sug gestn4Labs_0606_508.pdf http://www.kidney.org/professionals/kls/ pdf/faq_gfr.pdf Specimen Anatomical Collection Method Collection Time Receive d Time (Source) Location / / Volume Laterality Blood specimen 09/19/2010 4:39 AM 011 5:03 (specimen) EDT AM EDT Edu Jacobs MD CHEMISTRY ORDERABLES Performing Organization Address City/State/[place] [address] DAVID LIN (ABNORMAL) CBC (with Diff) (09/19/2010 4:39 AM EDT) P athologist Signature WBC 11.6 (H) 4.0 - 10.0 CERNER x10(3)/mcL MILLENNIUM RBC 4.39 3.93 - CERNER 5.22 MILLENNIUM x10(6)/mcL Hemoglobin 11.9 11.2 - CERNER 15.7 gm/dL MILLENNIUM Hematocrit 36.9 34.0 - CERNER 45.0 % MILLENNIUM MCV 84.1 79.0 - CERNER 94.0 fL MILLENNIUM MCH 27.1 26.6 - CERNER 32.2 pg MILLENNIUM MCHC 32.2 32.0 - CERNER 36.5 gm/dL MILLENNIUM Platelets 587 (H) 145 - 370 CERNER x10(3)/mcL MILLENNIUM RDWSD 49.9 (H) 35.0 - CERNER 46.0 fL MILLENNIUM RDWCV 16.1 (H) 10.9 - CERNER 14.4 % MILLENNIUM MPV 9.6 9.0 - 12.0 CERNER fL MILLENNIUM Specimen Anatomical Collection Method Collection Time Receive d Time (Source) Location / / Volume Laterality Blood specimen 09/19/2010 4:39 AM 011 5:03 (specimen) EDT AM EDT Edu Jacobs MD HEMATOLOGY ORDERABLES Performing Organization Address City/State/[place] [address] CERNER MILLENNIUM Duplex Study for DVT, Bilat legs (09/18/2010 7:53 AM EDT) Component Value Ref Test Analysis Performed At [facility] gist Range Method Time Signature VB Text VASCUBASE Report Department: Vascular Surgery Lab Patient: [id number] (DEN HAN) CPT Code: 36306 ICD-9: 959.8 Referring Physician: EDU JACOBS Indication: multi-trauma ICD9 Diagnosis Code: 959.8 RIGHT: Patent common femoral vein and popliteal vein with sp ontaneous, respirophasic Doppler wavefo sean that respond normally to augmentation maneuvers. The common femoral vein, sap henofemoral junction, femoral vein through the thigh and the popliteal vein are fully compressible. Patent risk consultant ior tibial and peroneal veins with no evidence of thrombus. LEFT: Patent common femoral vein and popliteal vein with spo ntaneous, respirophasic Doppler wavefo sean that respond normally to augmentation maneuvers. The common femoral vein, sap henofemoral junction, femoral vein through the thigh and the popliteal vein are fully compressible. Patent risk consultant ior tibial and peroneal veins with no evidence of thrombus. Interpretation: RIGHT: No evidence of lower extremity deep vein thrombosis. LEFT: No evidence of lower extremity deep vein thrombosis. No significant change compared to previous exam done on 09/10. Signed by MARCUS JIMENES on 2010-09-19 02:50:46 PM VB Text End of Report VASCUBASE Report Specimen (Source) Anatomical Collection Method Collection Time Re ceived Time Location / / Volume Laterality 09/18/2010 7:53 AM EDT Edu Jacobs MD VASCULAR ORDERABLES Performing Organization Address City/State/ZIP Code Phon e Number VASCUBASE POCT GLUCOSE LAB USE ONLY (09/18/2010 6:40 AM EDT) athologist Signature POC Glucose 106 60 - 199 CERNER mg/dL MILLENNIUM Comment: Supplemental ranges: <110 mg/dL before meals <200 mg/dL all other times of the day Specimen Anatomical Collection Method Collection Time Receive d Time (Source) Location / / Volume Laterality Blood specimen 09/18/2010 6:40 AM 011 6:40 (specimen) EDT AM EDT Benson Leahy MD POINT OF CARE TEST ORDERABLE S Performing Organization Address City/State/[place] [address] CERNER MILLENNIUM (ABNORMAL) REFLEX LAB-A-DIFF (09/18/2010 4:13 AM EDT) Patholo gist Method Time Signature Neutrophils % 60.8 34.0 - CERNER 71.0 % MILLENNIUM Neutr Abs (ANC) 4.21 1.50 - CERNER 6.30 MILLENNIUM x10(3)/mcL Lymphocytes % 20.3 19.0 - CERNER 53.0 % MILLENNIUM Lymphocytes Abs 1.4 1.0 - 3.6 CERNER x10(3)/mcL MILLENNIUM Monocytes % 11.2 4.0 - 13.0 CERNER % MILLENNIUM Monocyte Abs 0.8 0.2 - 1.0 CERNER x10(3)/mcL MILLENNIUM Eosinophils % 7.3 (H) 0.0 - 7.0 CERNER % MILLENNIUM Eosinophils Abs 0.5 0.0 - 0.5 CERNER x10(3)/mcL MILLENNIUM Basophils % 0.3 0.0 - 2.0 CERNER % MILLENNIUM Basophils Abs 0.0 0.0 - 0.2 CERNER x10(3)/mcL MILLENNIUM Immature Gran % 0.10 0.00 - CERNER 0.66 % MILLENNIUM Comment: Immature granulocytes(IG's)percentage an d absolute count will include metamyelocytes, myelocytes, and promyelo cytes. Blood smears from CBCs yielding IG's will be scanned manually for concor dance. If this scan disagrees with the automated IG or if promyelocytes are not ed, a manual differential will be performed. Liss Gran Abs 0.01 0.00 - 0.05 x10(3)/mcL CER NER MILLENNIUM Specimen Anatomical Collection Method Collection Time Receive d Time (Source) Location / / Volume Laterality Blood specimen 09/18/2010 4:13 AM 011 4:38 (specimen) EDT AM EDT Edu Jacobs MD HEMATOLOGY ORDERABLES Performing Organization Address City/State/ZIP Code Phon e Number [place] [phone] CERNER MILLENNIUM (ABNORMAL) Basic Metabolic Panel (non-fasting) (09/18/2010 4:13 AM EDT) athologist Signature Glucose Lvl 97 60 - 199 CERNER mg/dL MILLENNIUM Comment: Diabetes: >=200 mg/dL plus symp toms BUN 18 8 - 18 mg/dL CERNER MILLENNIUM Creatinine 0.31 (L) 0.70 - 1.20 mg/dL CERNER MILL ENNIUM Sodium 135 135 - 145 mmol/L CERNER ORLY NIUM Potassium 3.5 3.5 - 5.0 mmol/L CERNER ORLY NIUM Comment: Please note: ??Patients with WBC >100,00 0 may have falsely elevated Potassium levels. ??For accurate Potassium quantif ication in these patients send serum separator tube (gold top) for subsequent determinations. ??Contact the Clinical Chemistry Laboratory if there are any qu estions. Chloride 106 98 - 107 mmol/L CERNER MILLENN IUM CO2 21 (L) 22 - 31 mmol/L CERNER MILLENNI UM Anion Gap 8 5 - 15 mmol/L CERNER MILLENNIU M Calcium 9.1 8.5 - 10.5 mg/dL CERNER ORLY NIUM Estimated GFR >60 >=60 CERNER MILLENNIU M Comment: The National Kidney Disease Education Pr ogram (NKDEP) has recommended all laboratories report estimated GFR (eGFR) along with plasma creatinine measurements to assist you with recognit ion of early kidney disease. Caveats: ??Plasma creatinine should be a t steady-state (unchanged within the past week). For patient s multiply eGFR by 1.2.MDRD equation has not been validated for pediatric pat ients and is only valid for patients with age >= 18 years. At present, NKDEP does NOT recommend usi ng the MDRD equation for drug dosing purposes and pharmacists should continue to use their current dosing methods. In addition, numerical eGFR values great er than 60 ml/min/1.73 square meters should be treated as > 60, and not an ex act number due to greater inaccuracies at these higher values. Per NKDEP, they classify normal renal function as any GFR >60ml/min/1.73 square meters; chronic kidney disease wh en GFR <60, and renal failure when GFR <15. ??This calculation may not be valid for patients with atypical muscle mass (very lean or obese), acute renal failur e, and in patients with diabetic kidney disease. References: http://nkdep.nih.gov/resources/NKDEP_Sug gestn4Labs_0606_508.pdf http://www.kidney.org/professionals/kls/ pdf/faq_gfr.pdf Specimen Anatomical Collection Method Collection Time Receive d Time (Source) Location / / Volume Laterality Blood specimen 09/18/2010 4:13 AM 011 4:38 (specimen) EDT AM EDT Edu Jacobs MD CHEMISTRY ORDERABLES Performing Organization Address City/State/[place] [address] [facility] (ABNORMAL) CBC (with Diff) (09/18/2010 4:13 AM EDT) athologist Signature WBC 6.9 4.0 - 10.0 CERNER x10(3)/mcL MILLENNIUM RBC 3.64 (L) 3.93 - CERNER 5.22 MILLENNIUM x10(6)/mcL Hemoglobin 9.9 (L) 11.2 - CERNER 15.7 gm/dL [facility] Hematocrit 29.9 (L) 34.0 - CERNER 45.0 % [facility] MCV 82.1 79.0 - CERNER 94.0 fL [facility] MCH 27.2 26.6 - CERNER 32.2 pg [facility] MCHC 33.1 32.0 - CERNER 36.5 gm/dL [facility] Platelets 486 (H) 145 - 370 CERNER x10(3)/mcL [facility] RDWSD 48.5 (H) 35.0 - CERNER 46.0 fL [facility] RDWCV 16.0 (H) 10.9 - CERNER 14.4 % [facility] MPV 9.2 9.0 - 12.0 CERNER fL [facility] Specimen Anatomical Collection Method Collection Time Receive d Time (Source) Location / / Volume Laterality Blood specimen 09/18/2010 4:13 AM 011 4:38 (specimen) EDT AM EDT Edu Jacobs MD HEMATOLOGY ORDERABLES Performing Organization Address City/State/ZIP Code Phon e Number [address] [facility] POCT GLUCOSE LAB USE ONLY (09/17/2010 4:59 PM EDT) athologist Signature POC Glucose 105 60 - 199 CERNER mg/dL [facility] Comment: Supplemental ranges: <110 mg/dL before meals <200 mg/dL all other times of the day Specimen Anatomical Collection Method Collection Time Receive d Time (Source) Location / / Volume Laterality Blood specimen 09/17/2010 4:59 PM 011 4:59 (specimen) EDT PM EDT Benson Leahy MD POINT OF CARE TEST ORDERABLE S Performing Organization Address City/State/[place] [address] [facility] C. Difficile Screen (09/17/2010 4:31 PM EDT) Analysis Performed At Patho logist Time Signature C Diff Screen Negative Negative [facility] Specimen Anatomical Collection Method Collection Time Receive d Time (Source) Location / / Volume Laterality Stool specimen 09/17/2010 4:31 PM 011 4:45 (specimen) EDT PM EDT Edu Jacobs MD MICROBIOLOGY - GENERAL ORDER RITO Performing Organization Address City/State/ZIP Code Phon e Number [address] [address] [facility] PO[facility] LAB USE ONLY (09/17/2010 1:01 PM EDT) P athologist Signature POC Glucose 106 60 - 199 CERNER mg/dL [facility] Comment: Supplemental ranges: <110 mg/dL before meals <200 mg/dL all other times of the day Specimen Anatomical Collection Method Collection Time Receive d Time (Source) Location / / Volume Laterality Blood specimen 09/17/2010 1:01 PM 011 1:01 (specimen) EDT PM EDT Benson Leahy MD POINT OF CARE TEST ORDERABLE S Performing Organization Address City/[facility]/ZIP Code Phon e Number [address] [facility] POCT GLUCOSE LAB USE ONLY (09/17/2010 6:41 AM EDT) P athologist Signature POC Glucose 106 60 - 199 CERNER mg/dL [facility]UM Comment: Supplemental ranges: <110 mg/dL before meals <200 mg/dL all other times of the day Specimen Anatomical Collection Method Collection Time Receive d Time (Source) Location / / Volume Laterality Blood specimen 09/17/2010 6:41 AM 011 6:41 (specimen) EDT AM EDT Benson Leahy MD POINT OF CARE TEST ORDERABLE S Performing Organization Address City/State/[place] [address] CERNER MILLENNIUM (ABNORMAL) REFLEX LAB-A-DIFF (09/17/2010 4:10 AM EDT) [facility] Method Time Signature Neutrophils % 73.1 (H) 34.0 - CERNER 71.0 % MILLENNIUM Neutr Abs (ANC) 6.96 (H) 1.50 - CERNER 6.30 MILLENNIUM x10(3)/mc L Lymphocytes % 14.2 (L) 19.0 - CERNER 53.0 % [facility]NIUM Lymphocytes Abs 1.4 1.0 - 3.6 CERNER x10(3)/mc [facility]NIUM L Monocytes % 8.7 4.0 - CERNER 13.0 % MILLENNIUM Monocyte Abs 0.8 0.2 - 1.0 CERNER x10(3)/mc MILLENNIUM L Eosinophils % 3.4 0.0 - 7.0 CERNER % MILLENNIUM Eosinophils Abs 0.3 0.0 - 0.5 CERNER x10(3)/mc MILLENNIUM L Basophils % 0.4 0.0 - 2.0 CERNER % MILLENNIUM Basophils Abs 0.0 0.0 - 0.2 CERNER x10(3)/mc MILLENNIUM L Immature Gran % 0.20 0.00 - CERNER 0.66 % MILLENNIUM Comment: Immature granulocytes(IG's)percentage an d absolute count will include metamyelocytes, myelocytes, and promyelo cytes. Blood smears from CBCs yielding IG's will be scanned manually for concor dance. If this scan disagrees with the automated IG or if promyelocytes are not ed, a manual differential will be performed. Liss Gran Abs 0.02 0.00 - 0.05 x10(3)/mcL CER NER MILLENNIUM Specimen Anatomical Collection Method Collection Time Receive d Time (Source) Location / / Volume Laterality Blood specimen 09/17/2010 4:10 AM 011 4:24 (specimen) EDT AM EDT Edu Jacobs MD HEMATOLOGY ORDERABLES Performing Organization Address City/State/[place] [address] CERNER MILLENNIUM (ABNORMAL) Basic Metabolic Panel (non-fasting) (09/17/2010 4:10 AM EDT) P athologist Signature Glucose Lvl 109 60 - 199 CERNER mg/dL [facility]UM Comment: Diabetes: >=200 mg/dL plus symp toms BUN 22 (H) 8 - 18 mg/dL CERNER MILLENNIUM Creatinine 0.46 (L) 0.70 - 1.20 mg/dL CERNER MILL ENNIUM Sodium 137 135 - 145 mmol/L CERNER ORLY NIUM Potassium 3.1 (L) 3.5 - 5.0 mmol/L CERNER ORLY NIUM Comment: Please note: ??Patients with WBC >100,00 0 may have falsely elevated Potassium levels. ??For accurate Potassium quantif ication in these patients send serum separator tube (gold top) for subsequent determinations. ??Contact the Clinical Chemistry Laboratory if there are any qu estions. Chloride 107 98 - 107 mmol/L CERNER MILLENN IUM CO2 19 (L) 22 - 31 mmol/L CERNER MILLENNI UM Anion Gap 11 5 - 15 mmol/L CERNER MILLENNIU M Calcium 9.4 8.5 - 10.5 mg/dL CERNER ORLY NIUM Estimated GFR >60 >=60 CERNER MILLENNIU M Comment: The National Kidney Disease Education Pr ogram (NKDEP) has recommended all laboratories report estimated GFR (eGFR) along with plasma creatinine measurements to assist you with recognit ion of early kidney disease. Caveats: ??Plasma creatinine should be a t steady-state (unchanged within the past week). For patient s multiply eGFR by 1.2.MDRD equation has not been validated for pediatric pat ients and is only valid for patients with age >= 18 years. At present, NKDEP does NOT recommend usi ng the MDRD equation for drug dosing purposes and pharmacists should continue to use their current dosing methods. In addition, numerical eGFR values great er than 60 ml/min/1.73 square meters should be treated as > 60, and not an ex act number due to greater inaccuracies at these higher values. Per NKDEP, they classify normal renal function as any GFR >60ml/min/1.73 square meters; chronic kidney disease wh en GFR <60, and renal failure when GFR <15. ??This calculation may not be valid for patients with atypical muscle mass (very lean or obese), acute renal failur e, and in patients with diabetic kidney disease. References: http://nkdep.nih.gov/resources/NKDEP_Sug gestn4Labs_0606_508.pdf http://www.kidney.org/professionals/kls/ pdf/faq_gfr.pdf Specimen Anatomical Collection Method Collection Time Receive d Time (Source) Location / / Volume Laterality Blood specimen 09/17/2010 4:10 AM 011 4:24 (specimen) EDT AM EDT Edu Jacobs MD CHEMISTRY ORDERABLES Performing Organization Address City/State/[place] [address] CERNER MILLENNIUM (ABNORMAL) CBC (with Diff) (09/17/2010 4:10 AM EDT) P athologist Signature WBC 9.5 4.0 - 10.0 CERNER x10(3)/mcL [facility] RBC 3.82 (L) 3.93 - CERNER 5.22 MILLENNIUM x10(6)/mcL Hemoglobin 10.4 (L) 11.2 - CERNER 15.7 gm/dL MILLENNIUM Hematocrit 31.9 (L) 34.0 - CERNER 45.0 % MILLENNIUM MCV 83.5 79.0 - CERNER 94.0 fL MILLENNIUM MCH 27.2 26.6 - CERNER 32.2 pg MILLENNIUM MCHC 32.6 32.0 - CERNER 36.5 gm/dL MILLENNIUM Platelets 552 (H) 145 - 370 CERNER x10(3)/mcL MILLENNIUM RDWSD 49.4 (H) 35.0 - CERNER 46.0 fL MILLENNIUM RDWCV 16.0 (H) 10.9 - CERNER 14.4 % MILLENNIUM MPV 9.3 9.0 - 12.0 CERNER fL [facility]ILL[facility]UM Specimen Anatomical Collection Method Collection Time Receive d Time (Source) Location / / Volume Laterality Blood specimen 09/17/2010 4:10 AM 011 4:24 (specimen) EDT AM EDT Edu Jacobs MD HEMATOLOGY ORDERABLES Performing Organization Address City/State/[place] [address] CERNER MILLENNIUM (ABNORMAL) Prealbumin (09/17/2010 4:10 AM EDT) athologist Signature Prealbumin 19 (L) 20 - 40 CERNER mg/dL [facility]ILL[facility]NIUM Comment: Prealbumin levels are generally lower in the pediatric population; adult concentrations are usually attained near puberty. Specimen Anatomical Collection Method Collection Time Receive d Time (Source) Location / / Volume Laterality Blood specimen 09/17/2010 4:10 AM 011 4:24 (specimen) EDT AM EDT Edu Jacobs MD CHEMISTRY ORDERABLES Performing Organization Address City/[facility] Code Phon e Number [address] CERNER MILLENNIUM POCT GLUCOSE LAB USE ONLY (09/16/2010 11:27 PM EDT) athologist Signature POC Glucose 126 60 - 199 CERNER mg/dL [facility]UM Comment: Supplemental ranges: <110 mg/dL before meals <200 mg/dL all other times of the day Specimen Anatomical Collection Method Collection Time Receive d Time (Source) Location / / Volume Laterality Blood specimen 09/16/2010 11:27 1 (specimen) PM EDT 11:27 PM EDT Benson Leahy MD POINT OF CARE TEST ORDERABLE S Performing Organization Address City/[facility]/[place] [address] CERNER MILLENNIUM POCT GLUCOSE LAB USE ONLY (09/16/2010 10:01 PM EDT) athologist Signature POC Glucose 64 60 - 199 CERNER mg/dL MILL[facility]NIUM Comment: Supplemental ranges: <110 mg/dL before meals <200 mg/dL all other times of the day Specimen Anatomical Collection Method Collection Time Receive d Time (Source) Location / / Volume Laterality Blood specimen 09/16/2010 10:01 1 (specimen) PM EDT 10:01 PM EDT Benson Leahy MD POINT OF CARE TEST ORDERABLE S Performing Organization Address City/State/[place] [address] CERNER MILLENNIUM POCT GLUCOSE LAB USE ONLY (09/16/2010 3:55 PM EDT) P athologist Signature POC Glucose 115 60 - 199 CERNER mg/dL [facility]UM Comment: Supplemental ranges: <110 mg/dL before meals <200 mg/dL all other times of the day Specimen Anatomical Collection Method Collection Time Receive d Time (Source) Location / / Volume Laterality Blood specimen 09/16/2010 3:55 PM 011 3:55 (specimen) EDT PM EDT Benson Leahy MD POINT OF CARE TEST ORDERABLE S Performing Organization Address City/[facility]/ZIP Code Phon e Number [address] CERNER MILLENNIUM POCT GLUCOSE LAB USE ONLY (09/16/2010 11:53 AM EDT) athologist Signature POC Glucose 125 60 - 199 CERNER mg/dL [facility] Comment: Supplemental ranges: <110 mg/dL before meals <200 mg/dL all other times of the day Specimen Anatomical Collection Method Collection Time Receive d Time (Source) Location / / Volume Laterality Blood specimen 09/16/2010 11:53 1 (specimen) AM EDT 11:53 AM EDT Benson Leahy MD POINT OF CARE TEST ORDERABLE S Performing Organization Address City/State/[place] [address] CERNER MILLENNIUM POCT GLUCOSE LAB USE ONLY (09/16/2010 8:00 AM EDT) P athologist Signature POC Glucose 126 60 - 199 CERNER mg/dL [facility]UM Comment: Supplemental ranges: <110 mg/dL before meals <200 mg/dL all other times of the day Specimen Anatomical Collection Method Collection Time Receive d Time (Source) Location / / Volume Laterality Blood specimen 09/16/2010 8:00 AM 011 8:00 (specimen) EDT AM EDT Benson Leahy MD POINT OF CARE TEST ORDERABLE S Performing Organization Address City/[facility]/ZIP Code Phon e Number [place] [id number] CERNER MILLENNIUM (ABNORMAL) REFLEX LAB-A-DIFF (09/16/2010 2:24 AM EDT) [facility] Method Time Signature Neutrophils % 92.2 (H) 34.0 - CERNER 71.0 % MILLENNIUM Neutr Abs (ANC) 16.36 (H) 1.50 - CERNER 6.30 MILLENNIUM x10(3)/mc L Lymphocytes % 4.2 (L) 19.0 - CERNER 53.0 % MILLENNIUM Lymphocytes Abs 0.7 (L) 1.0 - 3.6 CERNER x10(3)/mc MILLENNIUM L Monocytes % 2.4 (L) 4.0 - CERNER 13.0 % MILLENNIUM Monocyte Abs 0.4 0.2 - 1.0 CERNER x10(3)/mc MILLENNIUM L Eosinophils % 0.8 0.0 - 7.0 CERNER % MILLENNIUM Eosinophils Abs 0.2 0.0 - 0.5 CERNER x10(3)/mc MILLENNIUM L Basophils % 0.1 0.0 - 2.0 CERNER % MILLENNIUM Basophils Abs 0.0 0.0 - 0.2 CERNER x10(3)/mc MILLENNIUM L Immature Gran % 0.30 0.00 - CERNER 0.66 % MILLENNIUM Comment: Immature granulocytes(IG's)percentage an d absolute count will include metamyelocytes, myelocytes, and promyelo cytes. Blood smears from CBCs yielding IG's will be scanned manually for concor dance. If this scan disagrees with the automated IG or if promyelocytes are not ed, a manual differential will be performed. Liss Gran Abs 0.05 0.00 - 0.05 x10(3)/mcL CER NER MILLENNIUM Specimen Anatomical Collection Method Collection Time Receive d Time (Source) Location / / Volume Laterality Blood specimen 09/16/2010 2:24 AM 011 2:27 (specimen) EDT AM EDT Edu Jacobs MD HEMATOLOGY ORDERABLES Performing Organization Address City/State/ZIP Code Phon [place] [address] CERNER MILLENNIUM (ABNORMAL) Basic Metabolic Panel (non-fasting) (09/16/2010 2:24 AM EDT) P athologist Signature Glucose Lvl 121 60 - 199 CERNER mg/dL MILLENNIUM Comment: Diabetes: >=200 mg/dL plus symp toms BUN 26 (H) 8 - 18 mg/dL CERNER MILLENNIUM Creatinine 0.50 (L) 0.70 - 1.20 mg/dL CERNER MILL ENNIUM Sodium 137 135 - 145 mmol/L CERNER ORLY NIUM Comment: rechecked - llu Potassium 3.8 3.5 - 5.0 mmol/L CERNER ORLY NIUM Comment: rechecked - llu Please note: ??Patients with WBC >100,00 0 may have falsely elevated Potassium levels. ??For accurate Potassium quantif ication in these patients send serum separator tube (gold top) for subsequent determinations. ??Contact the Clinical Chemistry Laboratory if there are any qu estions. Chloride 107 98 - 107 mmol/L CERNER MILLENN IUM Comment: result rechecked-llu CO2 16 (L) 22 - 31 mmol/L CERNER MILLENNI UM Anion Gap 14 5 - 15 mmol/L CERNER MILLENNIU M Calcium 9.1 8.5 - 10.5 mg/dL CERNER ORLY NIUM Estimated GFR >60 >=60 CERNER MILLENNIU M Comment: The National Kidney Disease Education Pr ogram (NKDEP) has recommended all laboratories report estimated GFR (eGFR) along with plasma creatinine measurements to assist you with recognit ion of early kidney disease. Caveats: ??Plasma creatinine should be a t steady-state (unchanged within the past week). For patient s multiply eGFR by 1.2.MDRD equation has not been validated for pediatric pat ients and is only valid for patients with age >= 18 years. At present, NKDEP does NOT recommend usi ng the MDRD equation for drug dosing purposes and pharmacists should continue to use their current dosing methods. In addition, numerical eGFR values great er than 60 ml/min/1.73 square meters should be treated as > 60, and not an ex act number due to greater inaccuracies at these higher values. Per NKDEP, they classify normal renal function as any GFR >60ml/min/1.73 square meters; chronic kidney disease wh en GFR <60, and renal failure when GFR <15. ??This calculation may not be valid for patients with atypical muscle mass (very lean or obese), acute renal failur e, and in patients with diabetic kidney disease. References: http://nkdep.nih.gov/resources/NKDEP_Sug gestn4Labs_0606_508.pdf http://www.kidney.org/professionals/kls/ pdf/faq_gfr.pdf Specimen Anatomical Collection Method Collection Time Receive d Time (Source) Location / / Volume Laterality Blood specimen 09/16/2010 2:24 AM 011 2:27 (specimen) EDT AM EDT Edu Jacobs MD CHEMISTRY ORDERABLES Performing Organization Address City/State/[place] [address] CERNER MILLENNIUM (ABNORMAL) CBC (with Diff) (09/16/2010 2:24 AM EDT) P athologist Signature WBC 17.7 (H) 4.0 - 10.0 CERNER x10(3)/mcL [facility]UM RBC 4.29 3.93 - CERNER 5.22 MILLENNIUM x10(6)/mcL Hemoglobin 11.7 11.2 - CERNER 15.7 gm/dL MILLENNIUM Hematocrit 35.8 34.0 - CERNER 45.0 % MILLENNIUM MCV 83.4 79.0 - CERNER 94.0 fL MILLENNIUM MCH 27.3 26.6 - CERNER 32.2 pg MILLENNIUM MCHC 32.7 32.0 - CERNER 36.5 gm/dL MILLENNIUM Platelets 624 (H) 145 - 370 CERNER x10(3)/mcL MILLENNIUM RDWSD 48.0 (H) 35.0 - CERNER 46.0 fL MILLENNIUM RDWCV 15.8 (H) 10.9 - CERNER 14.4 % MILLENNIUM MPV 9.2 9.0 - 12.0 CERNER fL MILLENNIUM Specimen Anatomical Collection Method Collection Time Receive d Time (Source) Location / / Volume Laterality Blood specimen 09/16/2010 2:24 AM 011 2:27 (specimen) EDT AM EDT Edu Jacobs MD HEMATOLOGY ORDERABLES Performing Organization Address City/[facility]/[place] [address] CERNER MILLENNIUM POCT GLUCOSE LAB USE ONLY (09/16/2010 12:03 AM EDT) athologist Signature POC Glucose 121 60 - 199 CERNER mg/dL MILLENNIUM Comment: Supplemental ranges: <110 mg/dL before meals <200 mg/dL all other times of the day Specimen Anatomical Collection Method Collection Time Receive d Time (Source) Location / / Volume Laterality Blood specimen 09/16/2010 12:03 1 (specimen) AM EDT 12:03 AM EDT Benson Leahy MD POINT OF CARE TEST ORDERABLE S Performing Organization Address City/[facility]/ZIP Code Phon e Number [address] CERNER MILLENNIUM POCT GLUCOSE LAB USE ONLY (09/15/2010 5:54 PM EDT) athologist Signature POC Glucose 112 60 - 199 CERNER mg/dL MILLENNIUM Comment: Supplemental ranges: <110 mg/dL before meals <200 mg/dL all other times of the day Specimen Anatomical Collection Method Collection Time Receive d Time (Source) Location / / Volume Laterality Blood specimen 09/15/2010 5:54 PM 011 5:54 (specimen) EDT PM EDT Benson Leahy MD POINT OF CARE TEST ORDERABLE S Performing Organization Address City/[facility]/ZIP Code Phon e Number [address] CERNER MILLENNIUM POCT GLUCOSE LAB USE ONLY (09/15/2010 11:58 AM EDT) P athologist Signature POC Glucose 126 60 - 199 CERNER mg/dL MILLENNIUM Comment: Supplemental ranges: <110 mg/dL before meals <200 mg/dL all other times of the day Specimen Anatomical Collection Method Collection Time Receive d Time (Source) Location / / Volume Laterality Blood specimen 09/15/2010 11:58 1 (specimen) AM EDT 11:58 AM EDT Benson Leahy MD POINT OF CARE TEST ORDERABLE S Performing Organization Address City/State/[place] [address] CERNER MILLENNIUM POCT GLUCOSE LAB USE ONLY (09/15/2010 8:15 AM EDT) P athologist Signature POC Glucose 152 60 - 199 CERNER mg/dL MILLENNIUM Comment: Supplemental ranges: <110 mg/dL before meals <200 mg/dL all other times of the day Specimen Anatomical Collection Method Collection Time Receive d Time (Source) Location / / Volume Laterality Blood specimen 09/15/2010 8:15 AM 011 8:15 (specimen) EDT AM EDT Benson Leahy MD POINT OF CARE TEST ORDERABLE S Performing Organization Address City/[facility]/ZIP Code Phon e Number [address] CERNER MILLENNIUM (ABNORMAL) REFLEX LAB-A-DIFF (09/15/2010 2:32 AM EDT) Patholo gist Method Time Signature Neutrophils % 71.9 (H) 34.0 - CERNER 71.0 % MILLENNIUM Neutr Abs (ANC) 6.63 (H) 1.50 - CERNER 6.30 MILLENNIUM x10(3)/mc L Lymphocytes % 15.9 (L) 19.0 - CERNER 53.0 % MILLENNIUM Lymphocytes Abs 1.5 1.0 - 3.6 CERNER x10(3)/mc MILLENNIUM L Monocytes % 9.3 4.0 - CERNER 13.0 % MILLENNIUM Monocyte Abs 0.9 0.2 - 1.0 CERNER x10(3)/mc MILLENNIUM L Eosinophils % 2.3 0.0 - 7.0 CERNER % MILLENNIUM Eosinophils Abs 0.2 0.0 - 0.5 CERNER x10(3)/mc MILLENNIUM L Basophils % 0.5 0.0 - 2.0 CERNER % MILLENNIUM Basophils Abs 0.1 0.0 - 0.2 CERNER x10(3)/mc MILLENNIUM L Immature Gran % 0.10 0.00 - CERNER 0.66 % MILLENNIUM Comment: Immature granulocytes(IG's)percentage an d absolute count will include metamyelocytes, myelocytes, and promyelo cytes. Blood smears from CBCs yielding IG's will be scanned manually for concor dance. If this scan disagrees with the automated IG or if promyelocytes are not ed, a manual differential will be performed. Liss Gran Abs 0.01 0.00 - 0.05 x10(3)/mcL CER NER MILLENNIUM Specimen Anatomical Collection Method Collection Time Receive d Time (Source) Location / / Volume Laterality Blood specimen 09/15/2010 2:32 AM 011 2:44 (specimen) EDT AM EDT Edu Jacobs MD HEMATOLOGY ORDERABLES Performing Organization Address City/State/ZIP Code Phon e Number [place] [phone] CERNER MILLENNIUM (ABNORMAL) Basic Metabolic Panel (non-fasting) (09/15/2010 2:32 AM EDT) athologist Signature Glucose Lvl 126 60 - 199 CERNER mg/dL MILLENNIUM Comment: Diabetes: >=200 mg/dL plus symp toms BUN 23 (H) 8 - 18 mg/dL CERNER MILLENNIUM Creatinine 0.52 (L) 0.70 - 1.20 mg/dL CERNER MILL ENNIUM Sodium 131 (L) 135 - 145 mmol/L CERNER ORLY NIUM Potassium 3.7 3.5 - 5.0 mmol/L CERNER ORLY NIUM Comment: Please note: ??Patients with WBC >100,00 0 may have falsely elevated Potassium levels. ??For accurate Potassium quantif ication in these patients send serum separator tube (gold top) for subsequent determinations. ??Contact the Clinical Chemistry Laboratory if there are any qu estions. Chloride 98 98 - 107 mmol/L CERNER MILLENN IUM CO2 22 22 - 31 mmol/L CERNER MILLENNI UM Anion Gap 11 5 - 15 mmol/L CERNER MILLENNIU M Calcium 9.5 8.5 - 10.5 mg/dL CERNER ORLY NIUM Estimated GFR >60 >=60 DAVID [place] Comment: The National Kidney Disease Education Pr ogram (NKDEP) has recommended all laboratories report estimated GFR (eGFR) along with plasma creatinine measurements to assist you with recognit ion of early kidney disease. Caveats: ??Plasma creatinine should be a t steady-state (unchanged within the past week). For patient s multiply eGFR by 1.2.MDRD equation has not been validated for pediatric pat ients and is only valid for patients with age >= 18 years. At present, NKDEP does NOT recommend usi ng the MDRD equation for drug dosing purposes and pharmacists should continue to use their current dosing methods. In addition, numerical eGFR values great er than 60 ml/min/1.73 square meters should be treated as > 60, and not an ex act number due to greater inaccuracies at these higher values. Per NKDEP, they classify normal renal function as any GFR >60ml/min/1.73 square meters; chronic kidney disease wh en GFR <60, and renal failure when GFR <15. ??This calculation may not be valid for patients with atypical muscle mass (very lean or obese), acute renal failur e, and in patients with diabetic kidney disease. References: http://nkdep.nih.gov/resources/NKDEP_Sug gestn4Labs_0606_508.pdf http://www.kidney.org/professionals/kls/ pdf/faq_gfr.pdf Specimen Anatomical Collection Method Collection Time Receive d Time (Source) Location / / Volume Laterality Blood specimen 09/15/2010 2:32 AM 011 2:44 (specimen) EDT AM EDT Edu Jacobs MD CHEMISTRY ORDERABLES Performing Organization Address City/State/ZIP Code Phon e Number [place] [phone] DAVID LIN (ABNORMAL) CBC (with Diff) (09/15/2010 2:32 AM EDT) P athologist Signature WBC 9.2 4.0 - 10.0 CERNER x10(3)/mcL MILLENNIUM RBC 4.15 3.93 - CERNER 5.22 MILLENNIUM x10(6)/mcL Hemoglobin 11.5 11.2 - CERNER 15.7 gm/dL MILLENNIUM Hematocrit 34.6 34.0 - CERNER 45.0 % MILLENNIUM MCV 83.4 79.0 - CERNER 94.0 fL MILLENNIUM MCH 27.7 26.6 - CERNER 32.2 pg MILLENNIUM MCHC 33.2 32.0 - CERNER 36.5 gm/dL ENNIUM Platelets 659 (H) 145 - 370 CERNER x10(3)/mcL MILLENNIUM RDWSD 47.5 (H) 35.0 - CERNER 46.0 fL MILLENNIUM RDWCV 15.7 (H) 10.9 - CERNER 14.4 % MILLENNIUM MPV 9.2 9.0 - 12.0 CERNER fL MILLENNIUM Specimen Anatomical Collection Method Collection Time Receive d Time (Source) Location / / Volume Laterality Blood specimen 09/15/2010 2:32 AM 011 2:44 (specimen) EDT AM EDT Edu Jacobs MD HEMATOLOGY ORDERABLES Performing Organization Address City/State/[facility] Code Phon e Number [address] [facility] POCT GLUCOSE LAB USE ONLY (09/14/2010 8:11 PM EDT) athologist Signature POC Glucose 116 60 - 199 CERNER mg/dL [facility] Comment: Supplemental ranges: <110 mg/dL before meals <200 mg/dL all other times of the day Specimen Anatomical Collection Method Collection Time Receive d Time (Source) Location / / Volume Laterality Blood specimen 09/14/2010 8:11 PM 011 8:11 (specimen) EDT PM EDT Benson Leahy MD POINT OF CARE TEST ORDERABLE S Performing Organization Address City/State/ZIP Code Phon e Number [address] [facility] POCT GLUCOSE LAB USE ONLY (09/14/2010 6:27 PM EDT) athologist Signature POC Glucose 109 60 - 199 CERNER mg/dL [facility] Comment: Supplemental ranges: <110 mg/dL before meals <200 mg/dL all other times of the day Specimen Anatomical Collection Method Collection Time Receive d Time (Source) Location / / Volume Laterality Blood specimen 09/14/2010 6:27 PM 011 6:27 (specimen) EDT PM EDT Benson Leahy MD POINT OF CARE TEST ORDERABLE S Performing Organization Address City/[facility]/ZIP Code Phon e Number [address] CERNER MILLENNIUM POCT GLUCOSE LAB USE ONLY (09/14/2010 12:14 PM EDT) P athologist Signature POC Glucose 121 60 - 199 CERNER mg/dL [facility] Comment: Supplemental ranges: <110 mg/dL before meals <200 mg/dL all other times of the day Specimen Anatomical Collection Method Collection Time Receive d Time (Source) Location / / Volume Laterality Blood specimen 09/14/2010 12:14 1 (specimen) PM EDT 12:14 PM EDT Benson Leahy MD POINT OF CARE TEST ORDERABLE S Performing Organization Address City/[facility]/ZIP Code Phon e Number [address] CERNER MILLENNIUM POCT GLUCOSE LAB USE ONLY (09/14/2010 9:01 AM EDT) P athologist Signature POC Glucose 121 60 - 199 CERNER mg/dL MILLENNIUM Comment: Supplemental ranges: <110 mg/dL before meals <200 mg/dL all other times of the day Specimen Anatomical Collection Method Collection Time Receive d Time (Source) Location / / Volume Laterality Blood specimen 09/14/2010 9:01 AM 011 9:01 (specimen) EDT AM EDT Benson Leahy MD POINT OF CARE TEST ORDERABLE S Performing Organization Address City/[facility]/ZIP Code Phon e Number [address] CERNER MILLENNIUM (ABNORMAL) REFLEX LAB-A-DIFF (09/14/2010 2:38 AM EDT) [facility] gist Method Time Signature Neutrophils % 74.3 (H) 34.0 - CERNER 71.0 % MILLENNIUM Neutr Abs (ANC) 8.36 (H) 1.50 - CERNER 6.30 MILLENNIUM x10(3)/mc L Lymphocytes % 14.0 (L) 19.0 - CERNER 53.0 % MILLENNIUM Lymphocytes Abs 1.6 1.0 - 3.6 CERNER x10(3)/mc MILLENNIUM L Monocytes % 10.0 4.0 - CERNER 13.0 % MILLENNIUM Monocyte Abs 1.1 (H) 0.2 - 1.0 CERNER x10(3)/mc MILLENNIUM L Eosinophils % 0.9 0.0 - 7.0 CERNER % MILLENNIUM Eosinophils Abs 0.1 0.0 - 0.5 CERNER x10(3)/mc MILLENNIUM L Basophils % 0.5 0.0 - 2.0 CERNER % MILLENNIUM Basophils Abs 0.1 0.0 - 0.2 CERNER x10(3)/mc MILLENNIUM L Immature Gran % 0.30 0.00 - CERNER 0.66 % MILLENNIUM Comment: Immature granulocytes(IG's)percentage an d absolute count will include metamyelocytes, myelocytes, and promyelo cytes. Blood smears from CBCs yielding IG's will be scanned manually for concor dance. If this scan disagrees with the automated IG or if promyelocytes are not ed, a manual differential will be performed. Liss Gran Abs 0.03 0.00 - 0.05 x10(3)/mcL CER NER MILLENNIUM Specimen Anatomical Collection Method Collection Time Receive d Time (Source) Location / / Volume Laterality Blood specimen 09/14/2010 2:38 AM 011 2:44 (specimen) EDT AM EDT Edu Jacobs MD HEMATOLOGY ORDERABLES Performing Organization Address City/State/[place] [address] CERNER MILLENNIUM (ABNORMAL) Basic Metabolic Panel (non-fasting) (09/14/2010 2:38 AM EDT) P athologist Signature Glucose Lvl 135 60 - 199 CERNER mg/dL MILLENNIUM Comment: Diabetes: >=200 mg/dL plus symp toms BUN 18 8 - 18 mg/dL CERNER MILLENNIUM Creatinine 0.47 (L) 0.70 - 1.20 mg/dL CERNER MILL ENNIUM Sodium 132 (L) 135 - 145 mmol/L CERNER ORLY NIUM Potassium 3.9 3.5 - 5.0 mmol/L CERNER ORLY NIUM Comment: Please note: ??Patients with WBC >100,00 0 may have falsely elevated Potassium levels. ??For accurate Potassium quantif ication in these patients send serum separator tube (gold top) for subsequent determinations. ??Contact the Clinical Chemistry Laboratory if there are any qu estions. Chloride 99 98 - 107 mmol/L CERNER MILLENN IUM CO2 21 (L) 22 - 31 mmol/L CERNER MILLENNI UM Anion Gap 12 5 - 15 mmol/L CERNER MILLENNIU M Calcium 9.7 8.5 - 10.5 mg/dL CERNER ORLY NIUM Estimated GFR >60 >=60 CERNER MILLENNIU M Comment: The National Kidney Disease Education Pr ogram (NKDEP) has recommended all laboratories report estimated GFR (eGFR) along with plasma creatinine measurements to assist you with recognit ion of early kidney disease. Caveats: ??Plasma creatinine should be a t steady-state (unchanged within the past week). For patient s multiply eGFR by 1.2.MDRD equation has not been validated for pediatric pat ients and is only valid for patients with age >= 18 years. At present, NKDEP does NOT recommend usi ng the MDRD equation for drug dosing purposes and pharmacists should continue to use their current dosing methods. In addition, numerical eGFR values great er than 60 ml/min/1.73 square meters should be treated as > 60, and not an ex act number due to greater inaccuracies at these higher values. Per NKDEP, they classify normal renal function as any GFR >60ml/min/1.73 square meters; chronic kidney disease wh en GFR <60, and renal failure when GFR <15. ??This calculation may not be valid for patients with atypical muscle mass (very lean or obese), acute renal failur e, and in patients with diabetic kidney disease. References: http://nkdep.nih.gov/resources/NKDEP_Sug gestn4Labs_0606_508.pdf http://www.kidney.org/professionals/kls/ pdf/faq_gfr.pdf Specimen Anatomical Collection Method Collection Time Receive d Time (Source) Location / / Volume Laterality Blood specimen 09/14/2010 2:38 AM 011 2:44 (specimen) EDT AM EDT Edu Jacobs MD CHEMISTRY ORDERABLES Performing Organization Address City/[facility]/[place] [address] CERNER MILLENNIUM (ABNORMAL) CBC (with Diff) (09/14/2010 2:38 AM EDT) athologist Signature WBC 11.3 (H) 4.0 - 10.0 CERNER x10(3)/mcL MILLENNIUM RBC 4.29 3.93 - CERNER 5.22 MILLENNIUM x10(6)/mcL Hemoglobin 11.8 11.2 - CERNER 15.7 gm/dL MILLENNIUM Hematocrit 35.7 34.0 - CERNER 45.0 % MILLENNIUM MCV 83.2 79.0 - CERNER 94.0 fL MILLENNIUM MCH 27.5 26.6 - CERNER 32.2 pg MILLENNIUM MCHC 33.1 32.0 - CERNER 36.5 gm/dL MILLENNIUM Platelets 607 (H) 145 - 370 CERNER x10(3)/mcL MILLENNIUM RDWSD 46.8 (H) 35.0 - CERNER 46.0 fL MILLENNIUM RDWCV 15.5 (H) 10.9 - CERNER 14.4 % MILLENNIUM MPV 9.2 9.0 - 12.0 CERNER fL MILLENNIUM Specimen Anatomical Collection Method Collection Time Receive d Time (Source) Location / / Volume Laterality Blood specimen 09/14/2010 2:38 AM 011 2:44 (specimen) EDT AM EDT Edu Jacobs MD HEMATOLOGY ORDERABLES Performing Organization Address City/[facility] [place] [address] CERNER MILLENNIUM POCT GLUCOSE LAB USE ONLY (09/13/2010 10:13 PM EDT) athologist Signature POC Glucose 117 60 - 199 CERNER mg/dL MILLENNIUM Comment: Supplemental ranges: <110 mg/dL before meals <200 mg/dL all other times of the day Specimen Anatomical Collection Method Collection Time Receive d Time (Source) Location / / Volume Laterality Blood specimen 09/13/2010 10:13 1 (specimen) PM EDT 10:13 PM EDT Benson Leahy MD POINT OF CARE TEST ORDERABLE S Performing Organization Address City/State/[place] [address] CERNER MILLENNIUM POCT GLUCOSE LAB USE ONLY (09/13/2010 5:45 PM EDT) athologist Signature POC Glucose 125 60 - 199 CERNER mg/dL MILLENNIUM Comment: Supplemental ranges: <110 mg/dL before meals <200 mg/dL all other times of the day Specimen Anatomical Collection Method Collection Time Receive d Time (Source) Location / / Volume Laterality Blood specimen 09/13/2010 5:45 PM 011 5:45 (specimen) EDT PM EDT Benson Leahy MD POINT OF CARE TEST ORDERABLE S Performing Organization Address City/State/[place] [address] CERNER MILLENNIUM POCT GLUCOSE LAB USE ONLY (09/13/2010 11:45 AM EDT) athologist Signature POC Glucose 118 60 - 199 CERNER mg/dL MILLENNIUM Comment: Supplemental ranges: <110 mg/dL before meals <200 mg/dL all other times of the day Specimen Anatomical Collection Method Collection Time Receive d Time (Source) Location / / Volume Laterality Blood specimen 09/13/2010 11:45 1 (specimen) AM EDT 11:45 AM EDT Benson Leahy MD POINT OF CARE TEST ORDERABLE S Performing Organization Address City/State/[place] [address] CERNER MILLENNIUM POCT GLUCOSE LAB USE ONLY (09/13/2010 2:24 AM EDT) athologist Signature POC Glucose 116 60 - 199 CERNER mg/dL MILLENNIUM Comment: Supplemental ranges: <110 mg/dL before meals <200 mg/dL all other times of the day Specimen Anatomical Collection Method Collection Time Receive d Time (Source) Location / / Volume Laterality Blood specimen 09/13/2010 2:24 AM 011 2:24 (specimen) EDT AM EDT Benson Leahy MD POINT OF CARE TEST ORDERABLE S Performing Organization Address City/State/[place] [address] CERNER MILLENNIUM REFLEX LAB-A-DIFF (09/13/2010 2:06 AM EDT) athologist Signature Neutrophils % 63.5 34.0 - CERNER 71.0 % MILLENNIUM Neutr Abs (ANC) 4.36 1.50 - CERNER 6.30 MILLENNIUM x10(3)/mcL Lymphocytes % 20.5 19.0 - CERNER 53.0 % MILLENNIUM Lymphocytes Abs 1.4 1.0 - 3.6 CERNER x10(3)/mcL MILLENNIUM Monocytes % 9.9 4.0 - 13.0 CERNER % MILLENNIUM Monocyte Abs 0.7 0.2 - 1.0 CERNER x10(3)/mcL MILLENNIUM Eosinophils % 4.8 0.0 - 7.0 CERNER % MILLENNIUM Eosinophils Abs 0.3 0.0 - 0.5 CERNER x10(3)/mcL MILLENNIUM Basophils % 0.9 0.0 - 2.0 CERNER % MILLENNIUM Basophils Abs 0.1 0.0 - 0.2 CERNER x10(3)/mcL MILLENNIUM Immature Gran % 0.40 0.00 - CERNER 0.66 % MILLENNIUM Comment: Immature granulocytes(IG's)percentage an d absolute count will include metamyelocytes, myelocytes, and promyelo cytes. Blood smears from CBCs yielding IG's will be scanned manually for concor dance. If this scan disagrees with the automated IG or if promyelocytes are not ed, a manual differential will be performed. Liss Gran Abs 0.03 0.00 - 0.05 x10(3)/mcL CER NER MILLENNIUM Specimen Anatomical Collection Method Collection Time Receive d Time (Source) Location / / Volume Laterality Blood specimen 09/13/2010 2:06 AM 011 2:10 (specimen) EDT AM EDT Edu Jacobs MD HEMATOLOGY ORDERABLES Performing Organization Address City/State/ZIP Code Phon e Number [place] [id number] CERNER MILLENNIUM (ABNORMAL) Basic Metabolic Panel (non-fasting) (09/13/2010 2:06 AM EDT) P athologist Signature Glucose Lvl 114 60 - 199 CERNER mg/dL MILLENNIUM Comment: Diabetes: >=200 mg/dL plus symp toms BUN 19 (H) 8 - 18 mg/dL CERNER MILLENNIUM Creatinine 0.41 (L) 0.70 - 1.20 mg/dL CERNER MILL ENNIUM Sodium 135 135 - 145 mmol/L CERNER ORLY NIUM Potassium 3.6 3.5 - 5.0 mmol/L CERNER ORLY NIUM Comment: Please note: ??Patients with WBC >100,00 0 may have falsely elevated Potassium levels. ??For accurate Potassium quantif ication in these patients send serum separator tube (gold top) for subsequent determinations. ??Contact the Clinical Chemistry Laboratory if there are any qu estions. Chloride 101 98 - 107 mmol/L CERNER MILLENN IUM CO2 24 22 - 31 mmol/L CERNER MILLENNI UM Anion Gap 10 5 - 15 mmol/L CERNER MILLENNIU M Calcium 9.3 8.5 - 10.5 mg/dL CERNER ORLY NIUM Estimated GFR >60 >=60 CERNER MILLENNIU M Comment: The National Kidney Disease Education Pr ogram (NKDEP) has recommended all laboratories report estimated GFR (eGFR) along with plasma creatinine measurements to assist you with recognit ion of early kidney disease. Caveats: ??Plasma creatinine should be a t steady-state (unchanged within the past week). For patient s multiply eGFR by 1.2.MDRD equation has not been validated for pediatric pat ients and is only valid for patients with age >= 18 years. At present, NKDEP does NOT recommend usi ng the MDRD equation for drug dosing purposes and pharmacists should continue to use their current dosing methods. In addition, numerical eGFR values great er than 60 ml/min/1.73 square meters should be treated as > 60, and not an ex act number due to greater inaccuracies at these higher values. Per NKDEP, they classify normal renal function as any GFR >60ml/min/1.73 square meters; chronic kidney disease wh en GFR <60, and renal failure when GFR <15. ??This calculation may not be valid for patients with atypical muscle mass (very lean or obese), acute renal failur e, and in patients with diabetic kidney disease. References: http://nkdep.nih.gov/resources/NKDEP_Sug gestn4Labs_0606_508.pdf http://www.kidney.org/professionals/kls/ pdf/faq_gfr.pdf Specimen Anatomical Collection Method Collection Time Receive d Time (Source) Location / / Volume Laterality Blood specimen 09/13/2010 2:06 AM 011 2:09 (specimen) EDT AM EDT Edu Jacobs MD CHEMISTRY ORDERABLES Performing Organization Address City/State/[place] [address] CERNER MILLENNIUM (ABNORMAL) CBC (with Diff) (09/13/2010 2:06 AM EDT) P athologist Signature WBC 6.9 4.0 - 10.0 CERNER x10(3)/mcL MILLENNIUM RBC 3.77 (L) 3.93 - CERNER 5.22 MILLENNIUM x10(6)/mcL Hemoglobin 10.5 (L) 11.2 - CERNER 15.7 gm/dL MILLENNIUM Hematocrit 31.4 (L) 34.0 - CERNER 45.0 % MILLENNIUM MCV 83.3 79.0 - CERNER 94.0 fL MILLENNIUM MCH 27.9 26.6 - CERNER 32.2 pg MILLENNIUM MCHC 33.4 32.0 - CERNER 36.5 gm/dL MILLENNIUM Platelets 644 (H) 145 - 370 CERNER x10(3)/mcL MILLENNIUM RDWSD 46.4 (H) 35.0 - CERNER 46.0 fL MILLENNIUM RDWCV 15.2 (H) 10.9 - CERNER 14.4 % MILLENNIUM MPV 9.2 9.0 - 12.0 CERNER fL [facility] Specimen Anatomical Collection Method Collection Time Receive d Time (Source) Location / / Volume Laterality Blood specimen 09/13/2010 2:06 AM 011 2:10 (specimen) EDT AM EDT Edu Jacobs MD HEMATOLOGY ORDERABLES Performing Organization Address City/[facility]/ZIP Code Phon e Number [address] CERNER MILLENNIUM POCT GLUCOSE LAB USE ONLY (09/12/2010 7:54 PM EDT) P athologist Signature POC Glucose 92 60 - 199 CERNER mg/dL [facility] Comment: Supplemental ranges: <110 mg/dL before meals <200 mg/dL all other times of the day Specimen Anatomical Collection Method Collection Time Receive d Time (Source) Location / / Volume Laterality Blood specimen 09/12/2010 7:54 PM 011 7:54 (specimen) EDT PM EDT Benson Leahy MD POINT OF CARE TEST ORDERABLE S Performing Organization Address City/[facility]/ZIP Code Phon e Number [address] CERNER MILLENNIUM POCT GLUCOSE LAB USE ONLY (09/12/2010 4:53 PM EDT) P athologist Signature POC Glucose 112 60 - 199 CERNER mg/dL [facility] Comment: Supplemental ranges: <110 mg/dL before meals <200 mg/dL all other times of the day Specimen Anatomical Collection Method Collection Time Receive d Time (Source) Location / / Volume Laterality Blood specimen 09/12/2010 4:53 PM 011 4:53 (specimen) EDT PM EDT Benson Leahy MD POINT OF CARE TEST ORDERABLE S Performing Organization Address City/[facility]/ZIP Code Phon e Number [address] CERNER MILLENNIUM POCT GLUCOSE LAB USE ONLY (09/12/2010 12:12 PM EDT) athologist Signature POC Glucose 104 60 - 199 CERNER mg/dL MILLENNIUM Comment: Supplemental ranges: <110 mg/dL before meals <200 mg/dL all other times of the day Specimen Anatomical Collection Method Collection Time Receive d Time (Source) Location / / Volume Laterality Blood specimen 09/12/2010 12:12 1 (specimen) PM EDT 12:12 PM EDT Benson Leahy MD POINT OF CARE TEST ORDERABLE S Performing Organization Address City/State/[place] [address] CERNER MILLENNIUM POCT GLUCOSE LAB USE ONLY (09/12/2010 7:46 AM EDT) athologist [facility] POC Glucose 101 60 - 199 CERNER mg/dL MILLENNIUM Comment: Supplemental ranges: <110 mg/dL before meals <200 mg/dL all other times of the day Specimen Anatomical Collection Method Collection Time Receive d Time (Source) Location / / Volume Laterality Blood specimen 09/12/2010 7:46 AM 011 7:46 (specimen) EDT AM EDT Benson Leahy MD POINT OF CARE TEST ORDERABLE S Performing Organization Address City/[facility]/[place] [address] CERNER MILLENNIUM REFLEX LAB-A-DIFF (09/12/2010 4:37 AM EDT) athologist Signature Neutrophils % 61.3 34.0 - CERNER 71.0 % MILLENNIUM Neutr Abs (ANC) 5.05 1.50 - CERNER 6.30 MILLENNIUM x10(3)/mcL Lymphocytes % 22.4 19.0 - CERNER 53.0 % MILLENNIUM Lymphocytes Abs 1.8 1.0 - 3.6 CERNER x10(3)/mcL MILLENNIUM Monocytes % 10.6 4.0 - 13.0 CERNER % MILLENNIUM Monocyte Abs 0.9 0.2 - 1.0 CERNER x10(3)/mcL MILLENNIUM Eosinophils % 4.7 0.0 - 7.0 CERNER % MILLENNIUM Eosinophils Abs 0.4 0.0 - 0.5 CERNER x10(3)/mcL MILLENNIUM Basophils % 0.6 0.0 - 2.0 CERNER % MILLENNIUM Basophils Abs 0.1 0.0 - 0.2 CERNER x10(3)/mcL MILLENNIUM Immature Gran % 0.40 0.00 - CERNER 0.66 % MILLENNIUM Comment: Immature granulocytes(IG's)percentage an d absolute count will include metamyelocytes, myelocytes, and promyelo cytes. Blood smears from CBCs yielding IG's will be scanned manually for concor dance. If this scan disagrees with the automated IG or if promyelocytes are not ed, a manual differential will be performed. Liss Gran Abs 0.03 0.00 - 0.05 x10(3)/mcL CER NER MILLENNIUM Specimen Anatomical Collection Method Collection Time Receive d Time (Source) Location / / Volume Laterality Blood specimen 09/12/2010 4:37 AM 011 4:45 (specimen) EDT AM EDT Edu Jacobs MD HEMATOLOGY ORDERABLES Performing Organization Address City/State/[place] [address] CERNER MILLENNIUM (ABNORMAL) Basic Metabolic Panel (non-fasting) (09/12/2010 4:37 AM EDT) P athologist Signature Glucose Lvl 106 60 - 199 CERNER mg/dL MILLENNIUM Comment: Diabetes: >=200 mg/dL plus symp toms BUN 23 (H) 8 - 18 mg/dL CERNER MILLENNIUM Creatinine 0.50 (L) 0.70 - 1.20 mg/dL CERNER MILL ENNIUM Sodium 134 (L) 135 - 145 mmol/L CERNER ORLY NIUM Potassium 4.2 3.5 - 5.0 mmol/L CERNER ORLY NIUM Comment: Please note: ??Patients with WBC >100,00 0 may have falsely elevated Potassium levels. ??For accurate Potassium quantif ication in these patients send serum separator tube (gold top) for subsequent determinations. ??Contact the Clinical Chemistry Laboratory if there are any qu estions. Chloride 102 98 - 107 mmol/L CERNER MILLENN IUM CO2 25 22 - 31 mmol/L CERNER MILLENNI UM Anion Gap 7 5 - 15 mmol/L CERNER MILLENNIU M Calcium 9.3 8.5 - 10.5 mg/dL CERPERRY ORLY NIUM Estimated GFR >60 >=60 CERNER NARENDRAIU M Comment: The National Kidney Disease Education Pr ogram (NKDEP) has recommended all laboratories report estimated GFR (eGFR) along with plasma creatinine measurements to assist you with recognit ion of early kidney disease. Caveats: ??Plasma creatinine should be a t steady-state (unchanged within the past week). For patient s multiply eGFR by 1.2.MDRD equation has not been validated for pediatric pat ients and is only valid for patients with age >= 18 years. At present, NKDEP does NOT recommend usi ng the MDRD equation for drug dosing purposes and pharmacists should continue to use their current dosing methods. In addition, numerical eGFR values great er than 60 ml/min/1.73 square meters should be treated as > 60, and not an ex act number due to greater inaccuracies at these higher values. Per NKDEP, they classify normal renal function as any GFR >60ml/min/1.73 square meters; chronic kidney disease wh en GFR <60, and renal failure when GFR <15. ??This calculation may not be valid for patients with atypical muscle mass (very lean or obese), acute renal failur e, and in patients with diabetic kidney disease. References: http://nkdep.nih.gov/resources/NKDEP_Sug gestn4Labs_0606_508.pdf http://www.kidney.org/professionals/kls/ pdf/faq_gfr.pdf Specimen Anatomical Collection Method Collection Time Receive d Time (Source) Location / / Volume Laterality Blood specimen 09/12/2010 4:37 AM 011 4:45 (specimen) EDT AM EDT Edu Jacobs MD CHEMISTRY ORDERABLES Performing Organization Address City/State/[place] [address] DAVID MACKEYIUM (ABNORMAL) CBC (with Diff) (09/12/2010 4:37 AM EDT) athologist Signature WBC 8.2 4.0 - 10.0 CERNER x10(3)/mcL MILLENNIUM RBC 3.52 (L) 3.93 - CERNER 5.22 MILLENNIUM x10(6)/mcL Hemoglobin 9.6 (L) 11.2 - CERNER 15.7 gm/dL MILLENNIUM Hematocrit 29.7 (L) 34.0 - CERNER 45.0 % MILLENNIUM MCV 84.4 79.0 - CERNER 94.0 fL MILLENNIUM MCH 27.3 26.6 - CERNER 32.2 pg MILLENNIUM MCHC 32.3 32.0 - CERNER 36.5 gm/dL MILLENNIUM Platelets 564 (H) 145 - 370 CERNER x10(3)/mcL MILLENNIUM RDWSD 47.3 (H) 35.0 - CERNER 46.0 fL MILLENNIUM RDWCV 15.4 (H) 10.9 - CERNER 14.4 % MILLENNIUM MPV 9.2 9.0 - 12.0 CERNER fL MILLENNIUM Specimen Anatomical Collection Method Collection Time Receive d Time (Source) Location / / Volume Laterality Blood specimen 09/12/2010 4:37 AM 011 4:45 (specimen) EDT AM EDT Edu Jacobs MD HEMATOLOGY ORDERABLES Performing Organization Address City/State/ZIP Code Phon e Number [place] [phone] CERNER MILLENNIUM Potassium (09/11/2010 9:03 PM EDT) athologist Signature Potassium 4.1 3.5 - 5.0 CERNER mmol/L MILLENNIUM Comment: Please note: ??Patients with WBC >100,00 0 may have falsely elevated Potassium levels. ??For accurate Potassium quantif ication in these patients send serum separator tube (gold top) for subsequent determinations. ??Contact the Clinical Chemistry Laboratory if there are any qu estions. Specimen Anatomical Collection Method Collection Time Receive d Time (Source) Location / / Volume Laterality Blood specimen 09/11/2010 9:03 PM 011 9:09 (specimen) EDT PM EDT Edu Jacobs MD CHEMISTRY ORDERABLES Performing Organization Address City/State/[place] [address] CERNER MILLENNIUM POCT GLUCOSE LAB USE ONLY (09/11/2010 8:40 PM EDT) P athologist Signature POC Glucose 90 60 - 199 CERNER mg/dL MILLENNIUM Comment: Supplemental ranges: <110 mg/dL before meals <200 mg/dL all other times of the day Specimen Anatomical Collection Method Collection Time Receive d Time (Source) Location / / Volume Laterality Blood specimen 09/11/2010 8:40 PM 011 8:40 (specimen) EDT PM EDT Benson Leahy MD POINT OF CARE TEST ORDERABLE S Performing Organization Address City/[facility]/ZIP Code Phon e Number [address] CERNER MILLENNIUM POCT GLUCOSE LAB USE ONLY (09/11/2010 5:01 PM EDT) athologist Signature POC Glucose 105 60 - 199 CERNER mg/dL [facility] Comment: Supplemental ranges: <110 mg/dL before meals <200 mg/dL all other times of the day Specimen Anatomical Collection Method Collection Time Receive d Time (Source) Location / / Volume Laterality Blood specimen 09/11/2010 5:01 PM 011 5:01 (specimen) EDT PM EDT Benson Leahy MD POINT OF CARE TEST ORDERABLE S Performing Organization Address City/[facility]/ZIP Code Phon e Number [address] CERNER MILLENNIUM XR CHEST PA OR AP- 1 VIEW (09/11/2010 1:27 PM EDT) Anatomical Region Laterality Modality Chest N/A Radiographic Imaging Specimen (Source) Anatomical Collection Method Collection Time Re ceived Time Location / / Volume Laterality 09/11/2010 1:27 PM EDT Impressions 09/12/2010 4:55 PM EDT IMPRESSION: ?? No pneumothorax identified status post l eft pigtail chest tube removal. ? Narrative 09/12/2010 4:55 PM EDT PORTABLE CHEST ?? INDICATION: ??Status post left chest tub e removal, question pneumothorax. ?? TECHNIQUE: ??A single, frontal view of t he chest from 09/11/10 at 1:20 PM compared to 09/10/10 at 3:05 PM. FINDINGS: ??Left-sided pigtail catheter has been removed. ??Although there is equipment overlying the left lung apex, no pneumothorax is appreciated. ??There is subsegmental atelectasis in the retro cardiac left lower lobe. ??No change in the appearance of the right lung, cardio mediastinal silhouette, or vasculature allowing for differences in patient posi tion. Procedure Note Nikki Peraza MD - 09/12/2010Formatt ing of this note might be different from the original. PORTABLE CHEST INDICATION: Status post left chest tube removal, question pneumothorax. TECHNIQUE: A single, frontal view of the chest from 09/11/10 at 1:20 PM compared to 09/10/10 at 3:05 PM. FINDINGS: Left-sided pigtail catheter woods s been removed. Although there is equipment overlying the left lung apex, no pneumothorax is appreciated. There is subsegmental atelectasis in the retro cardiac left lower lobe. No change in the appearance of the right lung, cardio mediastinal silhouette, or vasculature allowing for differences in patient posi tion. IMPRESSION IMPRESSION: No pneumothorax identified status post l eft pigtail chest tube removal. Kalpana Madrid MD IMG DX ORDERABLES POCT GLUCOSE LAB USE ONLY (09/11/2010 11:48 AM EDT) athologist Signature POC Glucose 112 60 - 199 CERNER mg/dL [facility] Comment: Supplemental ranges: <110 mg/dL before meals <200 mg/dL all other times of the day Specimen Anatomical Collection Method Collection Time Receive d Time (Source) Location / / Volume Laterality Blood specimen 09/11/2010 11:48 1 (specimen) AM EDT 11:48 AM EDT Benson Leahy MD POINT OF CARE TEST ORDERABLE S Performing Organization Address City/State/[place] [address] CERNER MILLENNIUM POCT GLUCOSE LAB USE ONLY (09/11/2010 7:43 AM EDT) P athologist Signature POC Glucose 109 60 - 199 CERNER mg/dL MILLENNIUM Comment: Supplemental ranges: <110 mg/dL before meals <200 mg/dL all other times of the day Specimen Anatomical Collection Method Collection Time Receive d Time (Source) Location / / Volume Laterality Blood specimen 09/11/2010 7:43 AM 011 7:43 (specimen) EDT AM EDT Benson Leahy MD POINT OF CARE TEST ORDERABLE S Performing Organization Address City/State/ZIP Code Phon e Number [place] [phone] CERNER MILLENNIUM (ABNORMAL) REFLEX LAB-A-DIFF (09/11/2010 2:51 AM EDT) Patholo gist Method Time Signature Neutrophils % 64.8 34.0 - CERNER 71.0 % MILLENNIUM Neutr Abs (ANC) 4.51 1.50 - CERNER 6.30 MILLENNIUM x10(3)/mc L Lymphocytes % 18.5 (L) 19.0 - CERNER 53.0 % MILLENNIUM Lymphocytes Abs 1.3 1.0 - 3.6 CERNER x10(3)/mc MILLENNIUM L Monocytes % 10.2 4.0 - CERNER 13.0 % MILLENNIUM Monocyte Abs 0.7 0.2 - 1.0 CERNER x10(3)/mc MILLENNIUM L Eosinophils % 5.6 0.0 - 7.0 CERNER % MILLENNIUM Eosinophils Abs 0.4 0.0 - 0.5 CERNER x10(3)/mc MILLENNIUM L Basophils % 0.6 0.0 - 2.0 CERNER % MILLENNIUM Basophils Abs 0.0 0.0 - 0.2 CERNER x10(3)/mc MILLENNIUM L Immature Gran % 0.30 0.00 - CERNER 0.66 % MILLENNIUM Comment: Immature granulocytes(IG's)percentage an d absolute count will include metamyelocytes, myelocytes, and promyelo cytes. Blood smears from CBCs yielding IG's will be scanned manually for concor dance. If this scan disagrees with the automated IG or if promyelocytes are not ed, a manual differential will be performed. Liss Gran Abs 0.02 0.00 - 0.05 x10(3)/mcL CER NER MILLENNIUM Specimen Anatomical Collection Method Collection Time Receive d Time (Source) Location / / Volume Laterality Blood specimen 09/11/2010 2:51 AM 011 3:15 (specimen) EDT AM EDT Edu Jacobs MD HEMATOLOGY ORDERABLES Performing Organization Address City/State/ZIP Code Phon e Number [place] [phone] CERNER MILLENNIUM (ABNORMAL) Basic Metabolic Panel (non-fasting) (09/11/2010 2:51 AM EDT) P athologist Signature Glucose Lvl 111 60 - 199 CERNER mg/dL MILLENNIUM Comment: Diabetes: >=200 mg/dL plus symp toms BUN 25 (H) 8 - 18 mg/dL CERNER MILLENNIUM Creatinine 0.43 (L) 0.70 - 1.20 mg/dL CERNER MILL ENNIUM Sodium 136 135 - 145 mmol/L CERNER ORLY NIUM Potassium 3.5 3.5 - 5.0 mmol/L CERNER ORLY NIUM Comment: Please note: ??Patients with WBC >100,00 0 may have falsely elevated Potassium levels. ??For accurate Potassium quantif ication in these patients send serum separator tube (gold top) for subsequent determinations. ??Contact the Clinical Chemistry Laboratory if there are any qu estions. Chloride 102 98 - 107 mmol/L CERNER MILLENN IUM CO2 23 22 - 31 mmol/L CERNER MILLENNI UM Anion Gap 11 5 - 15 mmol/L CERNER MILLENNIU M Calcium 9.1 8.5 - 10.5 mg/dL CERNER ORLY NIUM Estimated GFR >60 >=60 CERNER MILLENNIU M Comment: The National Kidney Disease Education Pr ogram (NKDEP) has recommended all laboratories report estimated GFR (eGFR) along with plasma creatinine measurements to assist you with recognit ion of early kidney disease. Caveats: ??Plasma creatinine should be a t steady-state (unchanged within the past week). For patient s multiply eGFR by 1.2.MDRD equation has not been validated for pediatric pat ients and is only valid for patients with age >= 18 years. At present, NKDEP does NOT recommend usi ng the MDRD equation for drug dosing purposes and pharmacists should continue to use their current dosing methods. In addition, numerical eGFR values great er than 60 ml/min/1.73 square meters should be treated as > 60, and not an ex act number due to greater inaccuracies at these higher values. Per NKDEP, they classify normal renal function as any GFR >60ml/min/1.73 square meters; chronic kidney disease wh en GFR <60, and renal failure when GFR <15. ??This calculation may not be valid for patients with atypical muscle mass (very lean or obese), acute renal failur e, and in patients with diabetic kidney disease. References: http://nkdep.nih.gov/resources/NKDEP_Sug gestn4Labs_0606_508.pdf http://www.kidney.org/professionals/kls/ pdf/faq_gfr.pdf Specimen Anatomical Collection Method Collection Time Receive d Time (Source) Location / / Volume Laterality Blood specimen 09/11/2010 2:51 AM 011 3:15 (specimen) EDT AM EDT Edu Jacobs MD CHEMISTRY ORDERABLES Performing Organization Address City/State/[place] [address] CERNER MILLENNIUM (ABNORMAL) CBC (with Diff) (09/11/2010 2:51 AM EDT) P athologist Signature WBC 7.0 4.0 - 10.0 CERNER x10(3)/mcL MILLENNIUM RBC 3.62 (L) 3.93 - CERNER 5.22 MILLENNIUM x10(6)/mcL Hemoglobin 9.8 (L) 11.2 - CERNER 15.7 gm/dL MILLENNIUM Hematocrit 30.1 (L) 34.0 - CERNER 45.0 % MILLENNIUM MCV 83.1 79.0 - CERNER 94.0 fL MILLENNIUM MCH 27.1 26.6 - CERNER 32.2 pg MILLENNIUM MCHC 32.6 32.0 - CERNER 36.5 gm/dL MILLENNIUM Platelets 603 (H) 145 - 370 CERNER x10(3)/mcL MILLENNIUM RDWSD 44.8 35.0 - CERNER 46.0 fL [facility] RDWCV 14.8 (H) 10.9 - CERNER 14.4 % MILLENNIUM MPV 9.2 9.0 - 12.0 CERNER fL [facility] Specimen Anatomical Collection Method Collection Time Receive d Time (Source) Location / / Volume Laterality Blood specimen 09/11/2010 2:51 AM 011 3:15 (specimen) EDT AM EDT Edu Jacobs MD HEMATOLOGY ORDERABLES Performing Organization Address City/[facility]/[place] [address] CERNER [facility] POCT GLUCOSE LAB USE ONLY (09/10/2010 8:57 PM EDT) athologist Signature POC Glucose 124 60 - 199 CERNER mg/dL [facility] Comment: Supplemental ranges: <110 mg/dL before meals <200 mg/dL all other times of the day Specimen Anatomical Collection Method Collection Time Receive d Time (Source) Location / / Volume Laterality Blood specimen 09/10/2010 8:57 PM 011 8:57 (specimen) EDT PM EDT Benson Leahy MD POINT OF CARE TEST ORDERABLE S Performing Organization Address City/[facility]/ZIP Code Phon e Number [address] [facility] MILLENNIUM POCT GLUCOSE LAB USE ONLY (09/10/2010 5:55 PM EDT) athologist Signature POC Glucose 114 60 - 199 CERNER mg/dL [facility] Comment: Supplemental ranges: <110 mg/dL before meals <200 mg/dL all other times of the day Specimen Anatomical Collection Method Collection Time Receive d Time (Source) Location / / Volume Laterality Blood specimen 09/10/2010 5:55 PM 011 5:55 (specimen) EDT PM EDT Benson Leahy MD POINT OF CARE TEST ORDERABLE S Performing Organization Address City/[facility]/ZIP Code Phon e Number [address] [facility] MILLENNIUM XR CHEST PA OR AP- 1 VIEW (09/10/2010 3:10 PM EDT) Anatomical Region Laterality Modality Chest N/A Radiographic Imaging Specimen (Source) Anatomical Collection Method Collection Time Re ceived Time Location / / Volume Laterality 09/10/2010 3:10 PM EDT Impressions 09/12/2010 10:33 AM EDT IMPRESSION: ?? No interval change. Narrative 09/12/2010 10:33 AM EDT PORTABLE AP SEMIUPRIGHT CHEST, SEPTEMBER 10, 2010, 1505 HOURS: ?? HISTORY: ??Question pus in left pigtail catheter. ?? COMPARISON: ??September 09. ?? FINDINGS: ??There is no significant inte rval change allowing for the patient's listing toward the left. ??Again noted a re mild left basilar atelectasis and a left-sided pigtail catheter superimposed over the left costophrenic angle. ?? Also again noted is a tracheostomy tube and left-sided central line. ?? Procedure Note Kenneth Santiago MD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 (gold top) for subsequent determinations. ??Contact the Clinical Chemistry Laboratory if there are any qu estions. Chloride 99 98 - 107 mmol/L CERNER MILLENN IUM CO2 26 22 - 31 mmol/L CERNER MILLENNI UM Anion Gap 8 5 - 15 mmol/L CERNER MILLENNIU M Calcium 8.6 8.5 - 10.5 mg/dL CERNER ORLY NIUM Total Protein 5.7 (L) 6.4 - 8.3 gm/dL CERNER MIL LENNIUM Albumin 2.7 (L) 3.2 - 5.2 gm/dL CERNER MILLENN IUM AST 18 0 - 30 unit/L CERNER MILLENNIU M ALT <5 0 - 30 unit/L CERNER MILLENNIU M Comment: Result rechecked. blr Alk Phos 80 40 - 104 unit/L CERNER MILLENN IUM Total Bilirubin 0.2 0.2 - 1.3 mg/dL CERNER M ILLENNIUM Bili, Direct 0.1 0.0 - 0.3 mg/dL CERNER MILL ENNIUM Estimated GFR >60 >=60 CERNER MILLENNIU M Comment: The National Kidney Disease Education Pr ogram (NKDEP) has recommended all laboratories report estimated GFR (eGFR) along with plasma creatinine measurements to assist you with recognit ion of early kidney disease. Caveats: ??Plasma creatinine should be a t steady-state (unchanged within the past week). For patient s multiply eGFR by 1.2.MDRD equation has not been validated for pediatric pat ients and is only valid for patients with age >= 18 years. At present, NKDEP does NOT recommend usi ng the MDRD equation for drug dosing purposes and pharmacists should continue to use their current dosing methods. In addition, numerical eGFR values great er than 60 ml/min/1.73 square meters should be treated as > 60, and not an ex act number due to greater inaccuracies at these higher values. Per NKDEP, they classify normal renal function as any GFR >60ml/min/1.73 square meters; chronic kidney disease wh en GFR <60, and renal failure when GFR <15. ??This calculation may not be valid for patients with atypical muscle mass (very lean or obese), acute renal failur e, and in patients with diabetic kidney disease. References: http://nkdep.nih.gov/resources/NKDEP_Sug gestn4Labs_0606_508.pdf http://www.kidney.org/professionals/kls/ pdf/faq_gfr.pdf Specimen Anatomical Collection Method Collection Time Receive d Time (Source) Location / / Volume Laterality Blood specimen 09/08/2010 7:00 PM 011 7:11 (specimen) EDT PM EDT Edu Jacobs MD CHEMISTRY ORDERABLES Performing Organization Address City/[facility]/[place] [address] CERNER MILLENNIUM Potassium (09/08/2010 6:05 PM EDT) athologist Signature Potassium 4.3 3.5 - 5.0 CERNER mmol/L MILLENNIUM Comment: Please note: ??Patients with WBC >100,00 0 may have falsely elevated Potassium levels. ??For accurate Potassium quantif ication in these patients send serum separator tube (gold top) for subsequent determinations. ??Contact the Clinical Chemistry Laboratory if there are any qu estions. Specimen Anatomical Collection Method Collection Time Receive d Time (Source) Location / / Volume Laterality Blood specimen 09/08/2010 6:05 PM 011 6:21 (specimen) EDT PM EDT Edu Jacobs MD CHEMISTRY ORDERABLES Performing Organization Address City/[facility]/[place] [address] CERNER MILLENNIUM POCT GLUCOSE LAB USE ONLY (09/08/2010 4:01 PM EDT) athologist Signature POC Glucose 97 60 - 199 CERNER mg/dL MILLENNIUM Comment: Supplemental ranges: <110 mg/dL before meals <200 mg/dL all other times of the day Specimen Anatomical Collection Method Collection Time Receive d Time (Source) Location / / Volume Laterality Blood specimen 09/08/2010 4:01 PM 011 4:01 (specimen) EDT PM EDT Benson Leahy MD POINT OF CARE TEST ORDERABLE S Performing Organization Address City/[facility]/[place] [address] CERNER MILLENNIUM POCT GLUCOSE LAB USE ONLY (09/08/2010 12:06 PM EDT) athologist Signature POC Glucose 101 60 - 199 CERNER mg/dL MILLENNIUM Comment: Supplemental ranges: <110 mg/dL before meals <200 mg/dL all other times of the day Specimen Anatomical Collection Method Collection Time Receive d Time (Source) Location / / Volume Laterality Blood specimen 09/08/2010 12:06 1 (specimen) PM EDT 12:06 PM EDT Benson Leahy MD POINT OF CARE TEST ORDERABLE S Performing Organization Address City/[facility]/[place] [address] CERNER MILLENNIUM POCT GLUCOSE LAB USE ONLY (09/08/2010 7:46 AM EDT) athologist Signature POC Glucose 87 60 - 199 CERNER mg/dL MILLENNIUM Comment: Supplemental ranges: <110 mg/dL before meals <200 mg/dL all other times of the day Specimen Anatomical Collection Method Collection Time Receive d Time (Source) Location / / Volume Laterality Blood specimen 09/08/2010 7:46 AM 011 7:46 (specimen) EDT AM EDT Benson Leahy MD POINT OF CARE TEST ORDERABLE S Performing Organization Address City/[facility]/ZIP Code Phon e Number [address] CERNER MILLENNIUM (ABNORMAL) Basic Metabolic Panel (non-fasting) (09/08/2010 5:41 AM EDT) athologist Signature Glucose Lvl 89 60 - 199 CERNER mg/dL MILLENNIUM Comment: Diabetes: >=200 mg/dL plus symp toms BUN 19 (H) 8 - 18 mg/dL CERNER MILLENNIUM Creatinine 0.39 (L) 0.70 - 1.20 mg/dL CERNER MILL ENNIUM Sodium 138 135 - 145 mmol/L CERNER ORLY NIUM Potassium 3.8 3.5 - 5.0 mmol/L CERNER ORLY NIUM Comment: Please note: ??Patients with WBC >100,00 0 may have falsely elevated Potassium levels. ??For accurate Potassium quantif ication in these patients send serum separator tube (gold top) for subsequent determinations. ??Contact the Clinical Chemistry Laboratory if there are any qu estions. Chloride 105 98 - 107 mmol/L CERNER MILLENN IUM CO2 29 22 - 31 mmol/L CERNER MILLENNI UM Anion Gap 4 (L) 5 - 15 mmol/L CERNER MILLENNIU M Calcium 8.4 (L) 8.5 - 10.5 mg/dL CERNER ORLY NIUM Estimated GFR >60 >=60 CERPERRY MACKEYIU M Comment: The National Kidney Disease Education Pr ogram (NKDEP) has recommended all laboratories report estimated GFR (eGFR) along with plasma creatinine measurements to assist you with recognit ion of early kidney disease. Caveats: ??Plasma creatinine should be a t steady-state (unchanged within the past week). For patient s multiply eGFR by 1.2.MDRD equation has not been validated for pediatric pat ients and is only valid for patients with age >= 18 years. At present, NKDEP does NOT recommend usi ng the MDRD equation for drug dosing purposes and pharmacists should continue to use their current dosing methods. In addition, numerical eGFR values great er than 60 ml/min/1.73 square meters should be treated as > 60, and not an ex act number due to greater inaccuracies at these higher values. Per NKDEP, they classify normal renal function as any GFR >60ml/min/1.73 square meters; chronic kidney disease wh en GFR <60, and renal failure when GFR <15. ??This calculation may not be valid for patients with atypical muscle mass (very lean or obese), acute renal failur e, and in patients with diabetic kidney disease. References: http://nkdep.nih.gov/resources/NKDEP_Sug gestn4Labs_0606_508.pdf http://www.kidney.org/professionals/kls/ pdf/faq_gfr.pdf Specimen Anatomical Collection Method Collection Time Receive d Time (Source) Location / / Volume Laterality Blood specimen 09/08/2010 5:41 AM 011 5:41 (specimen) EDT AM EDT Edu Jacobs MD CHEMISTRY ORDERABLES Performing Organization Address City/State/ZIP Code Phon e Number [place] [phone] DAVID MACKEYIUM (ABNORMAL) Urinalysis with microscopic (09/08/2010 5:30 AM EDT) [facility] Method Time Signature Glucose UA Negative Negative CERNER mg/dL MILLENNIUM Protein UA Trace (A) Neg mg/dL CERNER MILLENNIUM Bilirubin UA Negative Negative CERNER mg/dL MILLENNIUM Urobilinogen UA Normal mg/dL CERNER MILLENNIUM pH UA 6.0 5.0 - 8.0 CERNER MILLENNIUM Blood UA Negative mg/dL CERNER MILLENNIUM Ketones UA Negative mg/dL CERNER MILLENNIUM Nitrite UA Positive CERNER MILLENNIUM Leukocytes UA Large (A) Neg CERNER MILLENNIUM Appearance UA Clear Clear CERNER MILLENNIUM Spec Fitzgerald UA 1.012 1.002 - CERNER 1.030 MILLENNIUM Color UA Yellow Yellow CERNER MILLENNIUM RBC UA 1 0 - 4 /HPF CERNER MILLENNIUM WBC UA 54 (H) 0 - 5 /HPF CERNER MILLENNIUM Bacteria UA Occasional /HPF CERNER MILLENNIUM Renal Epith UA <1 (H) <=0 /HPF [facility] MILL[facility] Specimen Anatomical Collection Method Collection Time Receive d Time (Source) Location / / Volume Laterality Urine specimen 09/08/2010 5:30 AM 011 5:42 (specimen) EDT AM EDT Edu Jacobs MD URINE ORDERABLES Performing Organization Address City/State/ZIP Code Phon e Number [place] [phone] CERNER MILLENNIUM (ABNORMAL) REFLEX LAB-A-DIFF (09/08/2010 5:13 AM EDT) [facility] Method Time Signature Neutrophils % 66.4 34.0 - CERNER 71.0 % MILLENNIUM Neutr Abs (ANC) 4.53 1.50 - CERNER 6.30 MILLENNIUM x10(3)/mc L Lymphocytes % 15.8 (L) 19.0 - CERNER 53.0 % MILLENNIUM Lymphocytes Abs 1.1 1.0 - 3.6 CERNER x10(3)/mc MILLENNIUM L Monocytes % 10.8 4.0 - CERNER 13.0 % MILLENNIUM Monocyte Abs 0.7 0.2 - 1.0 CERNER x10(3)/mc MILLENNIUM L Eosinophils % 6.1 0.0 - 7.0 CERNER % MILLENNIUM Eosinophils Abs 0.4 0.0 - 0.5 CERNER x10(3)/mc MILLENNIUM L Basophils % 0.6 0.0 - 2.0 CERNER % MILLENNIUM Basophils Abs 0.0 0.0 - 0.2 CERNER x10(3)/mc MILLENNIUM L Immature Gran % 0.30 0.00 - CERNER 0.66 % MILLENNIUM Comment: Immature granulocytes(IG's)percentage an d absolute count will include metamyelocytes, myelocytes, and promyelo cytes. Blood smears from CBCs yielding IG's will be scanned manually for concor dance. If this scan disagrees with the automated IG or if promyelocytes are not ed, a manual differential will be performed. Liss Gran Abs 0.02 0.00 - 0.05 x10(3)/mcL CER NER MILLENNIUM Specimen Anatomical Collection Method Collection Time Receive d Time (Source) Location / / Volume Laterality Blood specimen 09/08/2010 5:13 AM 011 5:13 (specimen) EDT AM EDT Edu Jacobs MD HEMATOLOGY ORDERABLES Performing Organization Address City/State/[place] [address] CERNER MILLENNIUM (ABNORMAL) CBC (with Diff) (09/08/2010 5:13 AM EDT) P athologist Signature WBC 6.8 4.0 - 10.0 CERNER x10(3)/mcL MILLENNIUM RBC 2.99 (L) 3.93 - CERNER 5.22 MILLENNIUM x10(6)/mcL Hemoglobin 8.3 (L) 11.2 - CERNER 15.7 gm/dL MILLENNIUM Hematocrit 24.9 (L) 34.0 - CERNER 45.0 % MILLENNIUM MCV 83.3 79.0 - CERNER 94.0 fL MILLENNIUM MCH 27.8 26.6 - CERNER 32.2 pg MILLENNIUM MCHC 33.3 32.0 - CERNER 36.5 gm/dL MILLENNIUM Platelets 543 (H) 145 - 370 CERNER x10(3)/mcL MILLENNIUM RDWSD 47.4 (H) 35.0 - CERNER 46.0 fL [facility] RDWCV 15.5 (H) 10.9 - CERNER 14.4 % [facility] MPV 8.9 (L) 9.0 - 12.0 CERNER fL [facility] Specimen Anatomical Collection Method Collection Time Receive d Time (Source) Location / / Volume Laterality Blood specimen 09/08/2010 5:13 AM 011 5:13 (specimen) EDT AM EDT Edu Jacobs MD HEMATOLOGY ORDERABLES Performing Organization Address City/[facility]/ZIP Code Phon e Number [address] [facility] GREEN TUBE HOLD (09/08/2010 5:00 AM EDT) athologist Signature Green Hold Sample in [facility] lab. [facility] Specimen Anatomical Collection Method Collection Time Receive d Time (Source) Location / / Volume Laterality Blood specimen 09/08/2010 5:00 AM 011 5:13 (specimen) EDT AM EDT Edu Jacobs MD CHEMISTRY ORDERABLES Performing Organization Address City/[facility] [place] [address] [facility] POCT GLUCOSE LAB USE ONLY (09/07/2010 11:50 PM EDT) athologist Signature POC Glucose 101 60 - 199 CERNER mg/dL [facility] Comment: Supplemental ranges: <110 mg/dL before meals <200 mg/dL all other times of the day Specimen Anatomical Collection Method Collection Time Receive d Time (Source) Location / / Volume Laterality Blood specimen 09/07/2010 11:50 1 (specimen) PM EDT 11:50 PM EDT Benson Leahy MD POINT OF CARE TEST ORDERABLE S Performing Organization Address City/[facility]/ZIP Code Phon e Number [address] [facility] POCT GLUCOSE LAB USE ONLY (09/07/2010 9:22 PM EDT) athologist Signature POC Glucose 88 60 - 199 CERNER mg/dL MILLENNIUM Comment: Supplemental ranges: <110 mg/dL before meals <200 mg/dL all other times of the day Specimen Anatomical Collection Method Collection Time Receive d Time (Source) Location / / Volume Laterality Blood specimen 09/07/2010 9:22 PM 011 9:22 (specimen) EDT PM EDT Benson Leahy MD POINT OF CARE TEST ORDERABLE S Performing Organization Address City/State/ZIP Code Phon e Number [address] CERNER MILLENNIUM POCT GLUCOSE LAB USE ONLY (09/07/2010 4:07 PM EDT) P athologist Signature POC Glucose 105 60 - 199 CERNER mg/dL MILLENNIUM Comment: Supplemental ranges: <110 mg/dL before meals <200 mg/dL all other times of the day Specimen Anatomical Collection Method Collection Time Receive d Time (Source) Location / / Volume Laterality Blood specimen 09/07/2010 4:07 PM 011 4:07 (specimen) EDT PM EDT Benson Leahy MD POINT OF CARE TEST ORDERABLE S Performing Organization Address City/State/ZIP Code Phon e Number [address] CERNER MILLENNIUM POCT GLUCOSE LAB USE ONLY (09/07/2010 11:24 AM EDT) P athologist Signature POC Glucose 93 60 - 199 CERNER mg/dL ENNIUM Comment: Supplemental ranges: <110 mg/dL before meals <200 mg/dL all other times of the day Specimen Anatomical Collection Method Collection Time Receive d Time (Source) Location / / Volume Laterality Blood specimen 09/07/2010 11:24 1 (specimen) AM EDT 11:24 AM EDT Benson Leahy MD POINT OF CARE TEST ORDERABLE S Performing Organization Address City/State/ZIP Code Phon e Number [address] CERNER MILLENNIUM POCT GLUCOSE LAB USE ONLY (09/07/2010 7:11 AM EDT) P athologist Signature POC Glucose 82 60 - 199 CERNER mg/dL MILLENNIUM Comment: Supplemental ranges: <110 mg/dL before meals <200 mg/dL all other times of the day Specimen Anatomical Collection Method Collection Time Receive d Time (Source) Location / / Volume Laterality Blood specimen 09/07/2010 7:11 AM 011 7:11 (specimen) EDT AM EDT Benson Leahy MD POINT OF CARE TEST ORDERABLE S Performing Organization Address City/State/[place] [address] CERNER MILLENNIUM (ABNORMAL) BASIC METABOLIC PANEL (NON-FASTING) (09/07/2010 12:55 AM EDT) athologist Signature Glucose Lvl 102 60 - 199 CERNER mg/dL MILLENNIUM Comment: Diabetes: >=200 mg/dL plus symp toms BUN 24 (H) 8 - 18 mg/dL CERNER MILLENNIUM Creatinine 0.32 (L) 0.70 - 1.20 mg/dL CERNER MILL ENNIUM Sodium 133 (L) 135 - 145 mmol/L CERNER ORLY NIUM Potassium 4.1 3.5 - 5.0 mmol/L CERNER ORLY NIUM Comment: Please note: ??Patients with WBC >100,00 0 may have falsely elevated Potassium levels. ??For accurate Potassium quantif ication in these patients send serum separator tube (gold top) for subsequent determinations. ??Contact the Clinical Chemistry Laboratory if there are any qu estions. Chloride 104 98 - 107 mmol/L CERNER MILLENN IUM CO2 Not Perf 22 - 31 mmol/L CERNER MILLENNI UM Comment: Add-on request. Sample too old to perform test. Anion Gap Unable to Calculate 5 - 15 mmol/L CERNER MILLENNIUM Calcium 8.1 (L) 8.5 - 10.5 mg/dL CERNER ORLY NIUM Estimated GFR >60 >=60 CERNER MILLENNIU M Comment: The National Kidney Disease Education Pr ogram (NKDEP) has recommended all laboratories report estimated GFR (eGFR) along with plasma creatinine measurements to assist you with recognit ion of early kidney disease. Caveats: ??Plasma creatinine should be a t steady-state (unchanged within the past week). For patient s multiply eGFR by 1.2.MDRD equation has not been validated for pediatric pat ients and is only valid for patients with age >= 18 years. At present, NKDEP does NOT recommend usi ng the MDRD equation for drug dosing purposes and pharmacists should continue to use their current dosing methods. In addition, numerical eGFR values great er than 60 ml/min/1.73 square meters should be treated as > 60, and not an ex act number due to greater inaccuracies at these higher values. Per NKDEP, they classify normal renal function as any GFR >60ml/min/1.73 square meters; chronic kidney disease wh en GFR <60, and renal failure when GFR <15. ??This calculation may not be valid for patients with atypical muscle mass (very lean or obese), acute renal failur e, and in patients with diabetic kidney disease. References: http://nkdep.nih.gov/resources/NKDEP_Sug gestn4Labs_0606_508.pdf http://www.kidney.org/professionals/kls/ pdf/faq_gfr.pdf Specimen Anatomical Collection Method Collection Time Receive d Time (Source) Location / / Volume Laterality Blood specimen 09/07/2010 12:55 1 (specimen) AM EDT 12:58 AM EDT Dayton Zepeda III, MD CHEMISTRY ORDERABLES Performing Organization Address City/State/[place] [address] CERNER MILLENNIUM (ABNORMAL) REFLEX LAB-A-DIFF (09/07/2010 12:55 AM EDT) [facility] gist Method Time Signature Neutrophils % 67.1 34.0 - CERNER 71.0 % MILLENNIUM Neutr Abs (ANC) 5.29 1.50 - CERNER 6.30 MILLENNIUM x10(3)/mc L Lymphocytes % 18.1 (L) 19.0 - CERNER 53.0 % MILLENNIUM Lymphocytes Abs 1.4 1.0 - 3.6 CERNER x10(3)/mc MILLENNIUM L Monocytes % 9.5 4.0 - CERNER 13.0 % MILLENNIUM Monocyte Abs 0.8 0.2 - 1.0 CERNER x10(3)/mc MILLENNIUM L Eosinophils % 4.6 0.0 - 7.0 CERNER % MILLENNIUM Eosinophils Abs 0.4 0.0 - 0.5 CERNER x10(3)/mc MILLENNIUM L Basophils % 0.1 0.0 - 2.0 CERNER % MILLENNIUM Basophils Abs 0.0 0.0 - 0.2 CERNER x10(3)/mc MILLENNIUM L Immature Gran % 0.60 0.00 - CERNER 0.66 % MILLENNIUM Comment: Immature granulocytes(IG's)percentage an d absolute count will include metamyelocytes, myelocytes, and promyelo cytes. Blood smears from CBCs yielding IG's will be scanned manually for concor dance. If this scan disagrees with the automated IG or if promyelocytes are not ed, a manual differential will be performed. Liss Gran Abs 0.05 0.00 - 0.05 x10(3)/mcL CER NER MILLENNIUM Specimen Anatomical Collection Method Collection Time Receive d Time (Source) Location / / Volume Laterality Blood specimen 09/07/2010 12:55 1 (specimen) AM EDT 12:58 AM EDT Dayton Zepeda III, MD HEMATOLOGY ORDERABLES Performing Organization Address City/[facility]/[place] [address] CERNER MILLENNIUM Potassium (09/07/2010 12:55 AM EDT) athologist Signature Potassium 4.1 3.5 - 5.0 CERNER mmol/L MILLENNIUM Comment: Please note: ??Patients with WBC >100,00 0 may have falsely elevated Potassium levels. ??For accurate Potassium quantif ication in these patients send serum separator tube (gold top) for subsequent determinations. ??Contact the Clinical Chemistry Laboratory if there are any qu estions. Specimen Anatomical Collection Method Collection Time Receive d Time (Source) Location / / Volume Laterality Blood specimen 09/07/2010 12:55 1 (specimen) AM EDT 12:58 AM EDT Dayton Zepeda III, MD CHEMISTRY ORDERABLES Performing Organization Address City/State/ZIP [place] [address] [facility] (ABNORMAL) CBC (with Diff) (09/07/2010 12:55 AM EDT) athologist Signature WBC 7.9 4.0 - 10.0 CERNER x10(3)/mcL MILLENNIUM RBC 3.08 (L) 3.93 - CERNER 5.22 MILLENNIUM x10(6)/mcL Hemoglobin 8.5 (L) 11.2 - CERNER 15.7 gm/dL MILLENNIUM Hematocrit 25.6 (L) 34.0 - CERNER 45.0 % MILLENNIUM MCV 83.1 79.0 - CERNER 94.0 fL MILLENNIUM MCH 27.6 26.6 - CERNER 32.2 pg MILLENNIUM MCHC 33.2 32.0 - CERNER 36.5 gm/dL MILLENNIUM Platelets 565 (H) 145 - 370 CERNER x10(3)/mcL MILLENNIUM RDWSD 46.5 (H) 35.0 - CERNER 46.0 fL MILLENNIUM RDWCV 15.4 (H) 10.9 - CERNER 14.4 % MILLENNIUM MPV 8.7 (L) 9.0 - 12.0 CERNER fL MILLENNIUM Specimen Anatomical Collection Method Collection Time Receive d Time (Source) Location / / Volume Laterality Blood specimen 09/07/2010 12:55 1 (specimen) AM EDT 12:58 AM EDT Dayton Zepeda III, MD HEMATOLOGY ORDERABLES Performing Organization Address City/State/[place] [address] [facility] POCT GLUCOSE LAB USE ONLY (09/07/2010 12:24 AM EDT) athologist Signature POC Glucose 94 60 - 199 CERNER mg/dL [facility] Comment: Supplemental ranges: <110 mg/dL before meals <200 mg/dL all other times of the day Specimen Anatomical Collection Method Collection Time Receive d Time (Source) Location / / Volume Laterality Blood specimen 09/07/2010 12:24 1 (specimen) AM EDT 12:24 AM EDT Benson Leahy MD POINT OF CARE TEST ORDERABLE S Performing Organization Address [facility]/[place] [address] CERNER MILLENNIUM POCT GLUCOSE LAB USE ONLY (09/06/2010 8:18 PM EDT) P athologist Signature POC Glucose 97 60 - 199 CERNER mg/dL [facility] Comment: Supplemental ranges: <110 mg/dL before meals <200 mg/dL all other times of the day Specimen Anatomical Collection Method Collection Time Receive d Time (Source) Location / / Volume Laterality Blood specimen 09/06/2010 8:18 PM 011 8:18 (specimen) EDT PM EDT Benson Leahy MD POINT OF CARE TEST ORDERABLE S Performing Organization Address [facility]/ZIP Code Phon e Number [address] CERNER MILLENNIUM POCT GLUCOSE LAB USE ONLY (09/06/2010 5:27 PM EDT) P athologist Signature POC Glucose 118 60 - 199 CERNER mg/dL [facility] Comment: Supplemental ranges: <110 mg/dL before meals <200 mg/dL all other times of the day Specimen Anatomical Collection Method Collection Time Receive d Time (Source) Location / / Volume Laterality Blood specimen 09/06/2010 5:27 PM 011 5:27 (specimen) EDT PM EDT Benson Leahy MD POINT OF CARE TEST ORDERABLE S Performing Organization Address City/[facility]/[place] [address] CERNER [facility] SMEAR REVIEW REPORT (09/06/2010 2:52 PM EDT) Component Value Ref Test Analysis Performed At Patholo gist Range Method Time Signature Smear Review CERNER Report ? [facility] ? Provider: ?? EDU JACOBS ?Pt. Name: ?? DIANE, LASHANDAEN R ? Acc #: ?[id number] ? Pt. ? Col Date: ?? 1 ? /Sex: ?1945,(64 years),Female ? Rec Date: ?? 09/06/2010 ? LOC: ?ICUS ? MORPHOLOGIC HEMATOLOGY: SMEAR REVIEW ? ---Clinical Information--- ? peripheral blood smear ? ---Results--- ? See e-DH: LAB and PATHOLOGY, Lab Results, CBC and manual differential. ? ---Interpretation--- ? Thrombocytosis. No diagnostic morphologic pathology. see comment ? 09/06/10 ? PK ? 09/06/10 Verified by: ? Flora LYNNE, Nikolai ? Hematopatholog ist ? (Electronic Si gnature) ? The attending pathologist whose signature appears o n this report has ? reviewed all diagnostic slides and has edited the jennifer ss and/or ? microscopic portion of the report in rendering the fi nal pathologic ? diagnosis. ? ---Comment--- ? Thrombocytosis can be seen in reactive co nditions ( drugs, nutritional ? deficiencies-iron). However, if persistent, may repre sent a ? myeloproliferative ne oplasm; hematology consult with BM studies may be a ? consideration. ??Christina pheral specimen may be sent for JAK2 mutation studies ( ? molecular studies). I f positive will support myeloproliferative neoplasm. A ? negative study will not rule it out. Specimen (Source) Anatomical Collection Method Collection Time Re ceived Time Location / / Volume Laterality 09/06/2010 2:52 PM EDT Edu Jacobs MD PATHOLOGY/CYTOLOGY ORDERABLE S Performing Organization Address City/[facility]/[place] [address] CERNER MILLENNIUM POCT GLUCOSE LAB USE ONLY (09/06/2010 12:55 PM EDT) P athologist Signature POC Glucose 104 60 - 199 CERNER mg/dL MILLENNIUM Comment: Supplemental ranges: <110 mg/dL before meals <200 mg/dL all other times of the day Specimen Anatomical Collection Method Collection Time Receive d Time (Source) Location / / Volume Laterality Blood specimen 09/06/2010 12:55 1 (specimen) PM EDT 12:55 PM EDT Benson Leahy MD POINT OF CARE TEST ORDERABLE S Performing Organization Address City/[facility]/[place] [address] CERNER MILLENNIUM POCT GLUCOSE LAB USE ONLY (09/06/2010 7:36 AM EDT) athologist Signature POC Glucose 123 60 - 199 CERNER mg/dL MILLENNIUM Comment: Supplemental ranges: <110 mg/dL before meals <200 mg/dL all other times of the day Specimen Anatomical Collection Method Collection Time Receive d Time (Source) Location / / Volume Laterality Blood specimen 09/06/2010 7:36 AM 011 7:36 (specimen) EDT AM EDT Benson Leahy MD POINT OF CARE TEST ORDERABLE S Performing Organization Address City/[facility]/[place] [address] CERNER MILLENNIUM XR CHEST PA OR AP- 1 VIEW (09/06/2010 7:05 AM EDT) Anatomical Region Laterality Modality Chest N/A Radiographic Imaging Specimen (Source) Anatomical Collection Method Collection Time Re ceived Time Location / / Volume Laterality 09/06/2010 7:05 AM EDT Impressions 09/07/2010 8:40 AM EDT IMPRESSION: ?? 1. ??Bilateral hemidiaphragms obscured, right greater than left, suggesting atelectasis versus infiltrate. ?? Film and interpretation reviewed by the attending Narrative 09/07/2010 8:40 AM EDT CHEST X-RAY, AP: ?? REASON FOR STUDY: ??On T-piece. ?? Incre ased white blood cell count. ??Question pneumonia. ?? EXAM FOR COMPARISON: ??AP chest x-ray, 0 09/01/10. ?? FINDINGS: Trach in place. ??Left subclav willy line in place, with catheter tip terminating in cavoatrial junction. ??Tw o pigtail catheters, one each projecting into hemithorax, in place. ??Loss of rig ht and left hemidiaphragmatic borders suggestive of atelectasis versus infiltr ate. ??This process is more noticeable on the right side. ??Cardiomediastinal s ilhouette within normal limits. ?? Procedure Note Nikki Peraza MD - 09/07/2010Formatt ing of this note might be different from the original. CHEST X-RAY, AP: REASON FOR STUDY: On T-piece. Increased white blood cell count. Question pneumonia. EXAM FOR COMPARISON: AP chest x-ray, 11/04. FINDINGS: Trach in place. Left subclavia n line in place, with catheter tip terminating in cavoatrial junction. Two pigtail catheters, one each projecting into hemithorax, in place. Loss of right and left hemidiaphragmatic borders suggestive of atelectasis versus infiltr ate. This process is more noticeable on the right side. Cardiomediastinal caty houette within normal limits. IMPRESSION IMPRESSION: 1. Bilateral hemidiaphragms obscured, ri ght greater than left, suggesting atelectasis versus infiltrate. Film and interpretation reviewed by the attending Chris WILDER IMG DX ORDERABLES POCT GLUCOSE LAB USE ONLY (09/06/2010 4:35 AM EDT) P athologist Signature POC Glucose 121 60 - 199 CERNER mg/dL [facility] Comment: Supplemental ranges: <110 mg/dL before meals <200 mg/dL all other times of the day Specimen Anatomical Collection Method Collection Time Receive d Time (Source) Location / / Volume Laterality Blood specimen 09/06/2010 4:35 AM 011 4:35 (specimen) EDT AM EDT Benson Leahy MD POINT OF CARE TEST ORDERABLE S Performing Organization Address City/State/ZIP Code Phon e Number [address] CERNER MILLENNIUM PERIPHERAL SMEAR REVIEW (09/06/2010 12:45 AM EDT) Analysis Performed At Patho logist Time Signature Periph Smear See Note CERNER Rev MILLENNIUM Comment: When completed by the Pathologist, belle terrell [id number] will display under Hematology Reports. Specimen Anatomical Collection Method Collection Time Receive d Time (Source) Location / / Volume Laterality Blood specimen 09/06/2010 12:45 1 (specimen) AM EDT 12:53 AM EDT Dayton Zepeda III, MD HEMATOLOGY ORDERABLES Performing Organization Address City/[facility]/[place] [address] CERNER MILLENNIUM (ABNORMAL) REFLEX LAB-A-DIFF (09/06/2010 12:45 AM EDT) Patholo gist Method Time Signature Neutrophils % 73.7 (H) 34.0 - CERNER 71.0 % MILLENNIUM Neutr Abs (ANC) 8.49 (H) 1.50 - CERNER 6.30 MILLENNIUM x10(3)/mc L Lymphocytes % 12.6 (L) 19.0 - CERNER 53.0 % MILLENNIUM Lymphocytes Abs 1.5 1.0 - 3.6 CERNER x10(3)/mc MILLENNIUM L Monocytes % 9.5 4.0 - CERNER 13.0 % MILLENNIUM Monocyte Abs 1.1 (H) 0.2 - 1.0 CERNER x10(3)/mc MILLENNIUM L Eosinophils % 3.3 0.0 - 7.0 CERNER % MILLENNIUM Eosinophils Abs 0.4 0.0 - 0.5 CERNER x10(3)/mc MILLENNIUM L Basophils % 0.3 0.0 - 2.0 CERNER % MILLENNIUM Basophils Abs 0.0 0.0 - 0.2 CERNER x10(3)/mc MILLENNIUM L Immature Gran % 0.60 0.00 - CERNER 0.66 % MILLENNIUM Comment: Immature granulocytes(IG's)percentage an d absolute count will include metamyelocytes, myelocytes, and promyelo cytes. Blood smears from CBCs yielding IG's will be scanned manually for concor dance. If this scan disagrees with the automated IG or if promyelocytes are not ed, a manual differential will be performed. Liss Gran Abs 0.07 (H) 0.00 - 0.05 x10(3)/mcL CER NER MILLENNIUM Specimen Anatomical Collection Method Collection Time Receive d Time (Source) Location / / Volume Laterality Blood specimen 09/06/2010 12:45 1 (specimen) AM EDT 12:53 AM EDT Dayton Zepeda III, MD HEMATOLOGY ORDERABLES Performing Organization Address City/[facility]/[place] [address] CERNER MILLENNIUM Potassium (09/06/2010 12:45 AM EDT) athologist Signature Potassium 4.1 3.5 - 5.0 CERNER mmol/L MILLENNIUM Comment: Please note: ??Patients with WBC >100,00 0 may have falsely elevated Potassium levels. ??For accurate Potassium quantif ication in these patients send serum separator tube (gold top) for subsequent determinations. ??Contact the Clinical Chemistry Laboratory if there are any qu estions. Specimen Anatomical Collection Method Collection Time Receive d Time (Source) Location / / Volume Laterality Blood specimen 09/06/2010 12:45 1 (specimen) AM EDT 12:53 AM EDT Dayton Zepeda III, MD CHEMISTRY ORDERABLES Performing Organization Address City/[facility]/[place] [address] CERNER MILLENNIUM (ABNORMAL) CBC (with Diff) (09/06/2010 12:45 AM EDT) P athologist Signature WBC 11.5 (H) 4.0 - 10.0 CERNER x10(3)/mcL MILLENNIUM RBC 3.67 (L) 3.93 - CERNER 5.22 MILLENNIUM x10(6)/mcL Hemoglobin 10.2 (L) 11.2 - CERNER 15.7 gm/dL MILLENNIUM Hematocrit 31.2 (L) 34.0 - CERNER 45.0 % MILLENNIUM MCV 85.0 79.0 - CERNER 94.0 fL MILLENNIUM MCH 27.8 26.6 - CERNER 32.2 pg MILLENNIUM MCHC 32.7 32.0 - CERNER 36.5 gm/dL MILLENNIUM Platelets 808 (H) 145 - 370 CERNER x10(3)/mcL MILLENNIUM RDWSD 47.6 (H) 35.0 - CERNER 46.0 fL MILLENNIUM RDWCV 15.2 (H) 10.9 - CERNER 14.4 % MILLENNIUM MPV 9.0 9.0 - 12.0 CERNER fL MILLENNIUM Specimen Anatomical Collection Method Collection Time Receive d Time (Source) Location / / Volume Laterality Blood specimen 09/06/2010 12:45 1 (specimen) AM EDT 12:53 AM EDT Dayton Zepeda III, MD HEMATOLOGY ORDERABLES Performing Organization Address City/[facility] Phon e Number [address] [facility] POCT GLUCOSE LAB USE ONLY (09/06/2010 12:11 AM EDT) athologist Signature POC Glucose 120 60 - 199 CERNER mg/dL [facility] Comment: Supplemental ranges: <110 mg/dL before meals <200 mg/dL all other times of the day Specimen Anatomical Collection Method Collection Time Receive d Time (Source) Location / / Volume Laterality Blood specimen 09/06/2010 12:11 1 (specimen) AM EDT 12:11 AM EDT Benson Leahy MD POINT OF CARE TEST ORDERABLE S Performing Organization Address City/[facility] Phon e Number [address] [facility] POCT GLUCOSE LAB USE ONLY (09/05/2010 9:00 PM EDT) athologist Signature POC Glucose 118 60 - 199 CERNER mg/dL [facility] Comment: Supplemental ranges: <110 mg/dL before meals <200 mg/dL all other times of the day Specimen Anatomical Collection Method Collection Time Receive d Time (Source) Location / / Volume Laterality Blood specimen 09/05/2010 9:00 PM 011 9:00 (specimen) EDT PM EDT Benson Leahy MD POINT OF CARE TEST ORDERABLE S Performing Organization Address City/[facility]/ZIP Code Phon e Number [address] CERNER MILLENNIUM POCT GLUCOSE LAB USE ONLY (09/05/2010 4:53 PM EDT) P athologist Signature POC Glucose 123 60 - 199 CERNER mg/dL MILLENNIUM Comment: Supplemental ranges: <110 mg/dL before meals <200 mg/dL all other times of the day Specimen Anatomical Collection Method Collection Time Receive d Time (Source) Location / / Volume Laterality Blood specimen 09/05/2010 4:53 PM 011 4:53 (specimen) EDT PM EDT Benson Leahy MD POINT OF CARE TEST ORDERABLE S Performing Organization Address City/[facility]/ZIP Code Phon e Number [address] CERNER MILLENNIUM POCT GLUCOSE LAB USE ONLY (09/05/2010 1:18 PM EDT) athologist Signature POC Glucose 115 60 - 199 CERNER mg/dL MILLENNIUM Comment: Supplemental ranges: <110 mg/dL before meals <200 mg/dL all other times of the day Specimen Anatomical Collection Method Collection Time Receive d Time (Source) Location / / Volume Laterality Blood specimen 09/05/2010 1:18 PM 011 1:18 (specimen) EDT PM EDT Benson Leahy MD POINT OF CARE TEST ORDERABLE S Performing Organization Address City/State/[place] [address] CERNER MILLENNIUM POCT GLUCOSE LAB USE ONLY (09/05/2010 8:35 AM EDT) P athologist Signature POC Glucose 121 60 - 199 CERNER mg/dL [facility]ILLEN[facility]UM Comment: Supplemental ranges: <110 mg/dL before meals <200 mg/dL all other times of the day Specimen Anatomical Collection Method Collection Time Receive d Time (Source) Location / / Volume Laterality Blood specimen 09/05/2010 8:35 AM 011 8:35 (specimen) EDT AM EDT Benson Leahy MD POINT OF CARE TEST ORDERABLE S Performing Organization Address City/[facility]/[place] [address] CERNER MILLENNIUM POCT GLUCOSE LAB USE ONLY (09/05/2010 4:18 AM EDT) P athologist Signature POC Glucose 121 60 - 199 CERNER mg/dL [facility]ILLEN[facility]UM Comment: Supplemental ranges: <110 mg/dL before meals <200 mg/dL all other times of the day Specimen Anatomical Collection Method Collection Time Receive d Time (Source) Location / / Volume Laterality Blood specimen 09/05/2010 4:18 AM 011 4:18 (specimen) EDT AM EDT Benson Leahy MD POINT OF CARE TEST ORDERABLE S Performing Organization Address City/[facility]/ZIP Code Phon e Number [address] CERNER MILLENNIUM (ABNORMAL) REFLEX LAB-A-DIFF (09/05/2010 12:35 AM EDT) Patholo gist Method Time Signature Neutrophils % 76.0 (H) 34.0 - CERNER 71.0 % MILLENNIUM Neutr Abs (ANC) 6.56 (H) 1.50 - CERNER 6.30 MILLENNIUM x10(3)/mc L Lymphocytes % 10.5 (L) 19.0 - CERNER 53.0 % MILLENNIUM Lymphocytes Abs 0.9 (L) 1.0 - 3.6 CERNER x10(3)/mc MILLENNIUM L Monocytes % 10.0 4.0 - CERNER 13.0 % MILLENNIUM Monocyte Abs 0.9 0.2 - 1.0 CERNER x10(3)/mc MILLENNIUM L Eosinophils % 2.7 0.0 - 7.0 CERNER % MILLENNIUM Eosinophils Abs 0.2 0.0 - 0.5 CERNER x10(3)/mc MILLENNIUM L Basophils % 0.3 0.0 - 2.0 CERNER % MILLENNIUM Basophils Abs 0.0 0.0 - 0.2 CERNER x10(3)/mc MILLENNIUM L Immature Gran % 0.50 0.00 - CERNER 0.66 % MILLENNIUM Comment: Immature granulocytes(IG's)percentage an d absolute count will include metamyelocytes, myelocytes, and promyelo cytes. Blood smears from CBCs yielding IG's will be scanned manually for concor dance. If this scan disagrees with the automated IG or if promyelocytes are not ed, a manual differential will be performed. Liss Gran Abs 0.04 0.00 - 0.05 x10(3)/mcL CER NER MILLENNIUM Specimen Anatomical Collection Method Collection Time Receive d Time (Source) Location / / Volume Laterality Blood specimen 09/05/2010 12:35 1 (specimen) AM EDT 12:42 AM EDT Dayton Zepeda III, MD HEMATOLOGY ORDERABLES Performing Organization Address City/State/ZIP Code Phon e Number [place] [id number] CERNER MILLENNIUM (ABNORMAL) CBC (with Diff) (09/05/2010 12:35 AM EDT) P athologist Signature WBC 8.6 4.0 - 10.0 CERNER x10(3)/mcL MILLENNIUM RBC 3.11 (L) 3.93 - CERNER 5.22 MILLENNIUM x10(6)/mcL Hemoglobin 8.5 (L) 11.2 - CERNER 15.7 gm/dL MILLENNIUM Hematocrit 26.3 (L) 34.0 - CERNER 45.0 % MILLENNIUM MCV 84.6 79.0 - CERNER 94.0 fL MILLENNIUM MCH 27.3 26.6 - CERNER 32.2 pg MILLENNIUM MCHC 32.3 32.0 - CERNER 36.5 gm/dL MILLENNIUM Platelets 633 (H) 145 - 370 CERNER x10(3)/mcL MILLENNIUM RDWSD 46.6 (H) 35.0 - CERNER 46.0 fL MILLENNIUM RDWCV 14.9 (H) 10.9 - CERNER 14.4 % MILLENNIUM MPV 8.9 (L) 9.0 - 12.0 CERNER fL MILLENNIUM Specimen Anatomical Collection Method Collection Time Receive d Time (Source) Location / / Volume Laterality Blood specimen 09/05/2010 12:35 1 (specimen) AM EDT 12:42 AM EDT Dayton Zepeda III, MD HEMATOLOGY ORDERABLES Performing Organization Address City/[facility]/[place] [address] CERNER MILLENNIUM (ABNORMAL) Hepatic Function Panel (09/05/2010 12:35 AM EDT) P athologist Signature Total Protein 5.0 (L) 6.4 - 8.3 CERNER gm/dL MILLENNIUM Albumin 2.3 (L) 3.2 - 5.2 CERNER gm/dL MILLENNIUM AST 20 0 - 30 CERNER unit/L MILLENNIUM ALT 23 0 - 30 CERNER unit/L MILLENNIUM Alk Phos 72 40 - 104 CERNER unit/L MILLENNIUM Total 0.2 0.2 - 1.3 CERNER Bilirubin mg/dL MILLENNIUM Bili, Direct 0.1 0.0 - 0.3 CERNER mg/dL MILLENNIUM Specimen Anatomical Collection Method Collection Time Receive d Time (Source) Location / / Volume Laterality Blood specimen 09/05/2010 12:35 1 (specimen) AM EDT 12:42 AM EDT Edu Jacobs MD CHEMISTRY ORDERABLES Performing Organization Address City/[facility]/[place] [address] CERNER MILLENNIUM Phosphorus (09/05/2010 12:35 AM EDT) P athologist Signature Phosphorus 3.3 2.5 - 4.5 CERNER mg/dL MILLENNIUM Specimen Anatomical Collection Method Collection Time Receive d Time (Source) Location / / Volume Laterality Blood specimen 09/05/2010 12:35 1 (specimen) AM EDT 12:42 AM EDT Edu Jacobs MD CHEMISTRY ORDERABLES Performing Organization Address City/[facility]/[place] [address] CERNER MILLENNIUM Magnesium (09/05/2010 12:35 AM EDT) P athologist Signature Magnesium 0.85 0.69 - 1.07 CERNER mmol/L MILLENNIUM Specimen Anatomical Collection Method Collection Time Receive d Time (Source) Location / / Volume Laterality Blood specimen 09/05/2010 12:35 1 (specimen) AM EDT 12:42 AM EDT Edu Jacobs MD CHEMISTRY ORDERABLES Performing Organization Address City/State/ZIP Code Phon e Number [address] CERNER MILLENNIUM Glucose, random (09/05/2010 12:35 AM EDT) athologist Signature Glucose Lvl 117 60 - 199 CERNER mg/dL MILLENNIUM Comment: Diabetes: >=200 mg/dL plus symp toms Specimen Anatomical Collection Method Collection Time Receive d Time (Source) Location / / Volume Laterality Blood specimen 09/05/2010 12:35 1 (specimen) AM EDT 12:42 AM EDT Edu Jacobs MD CHEMISTRY ORDERABLES Performing Organization Address City/[facility]/ZIP Code Phon e Number [address] CERNER MILLENNIUM (ABNORMAL) Creatinine, serum (09/05/2010 12:35 AM EDT) Analysis Performed At Patho logist Time Signature Creatinine 0.25 (L) 0.70 - CERNER 1.20 mg/dL MILLENNIUM Estimated GFR >60 >=60 CERNER MILLENNIUM Comment: The National Kidney Disease Education Pr ogram (NKDEP) has recommended all laboratories report estimated GFR (eGFR) along with plasma creatinine measurements to assist you with recognit ion of early kidney disease. Caveats: ??Plasma creatinine should be a t steady-state (unchanged within the past week). For patient s multiply eGFR by 1.2.MDRD equation has not been validated for pediatric pat ients and is only valid for patients with age >= 18 years. At present, NKDEP does NOT recommend usi ng the MDRD equation for drug dosing purposes and pharmacists should continue to use their current dosing methods. In addition, numerical eGFR values great er than 60 ml/min/1.73 square meters should be treated as > 60, and not an ex act number due to greater inaccuracies at these higher values. Per NKDEP, they classify normal renal function as any GFR >60ml/min/1.73 square meters; chronic kidney disease wh en GFR <60, and renal failure when GFR <15. ??This calculation may not be valid for patients with atypical muscle mass (very lean or obese), acute renal failur e, and in patients with diabetic kidney disease. References: http://nkdep.nih.gov/resources/NKDEP_Sug gestn4Labs_0606_508.pdf http://www.kidney.org/professionals/kls/ pdf/faq_gfr.pdf Specimen Anatomical Collection Method Collection Time Receive d Time (Source) Location / / Volume Laterality Blood specimen 09/05/2010 12:35 1 (specimen) AM EDT 12:42 AM EDT Edu Jacobs MD CHEMISTRY ORDERABLES Performing Organization Address City/[facility] Code Phon e Number [address] CERNER MILLENNIUM BUN (09/05/2010 12:35 AM EDT) P athologist Signature BUN 9 8 - 18 CERNER mg/dL MILLENNIUM Comment: result rechecked-[facility] Specimen Anatomical Collection Method Collection Time Receive d Time (Source) Location / / Volume Laterality Blood specimen 09/05/2010 12:35 1 (specimen) AM EDT 12:42 AM EDT Edu Jacobs MD CHEMISTRY ORDERABLES Performing Organization Address City/[facility] [place] [address] CERNER MILLENNIUM (ABNORMAL) Electrolyte panel (09/05/2010 12:35 AM EDT) P athologist Signature Sodium 138 135 - 145 CERNER mmol/L MILLENNIUM Potassium 4.1 3.5 - 5.0 CERNER mmol/L MILLENNIUM Comment: Please note: ??Patients with WBC >100,00 0 may have falsely elevated Potassium levels. ??For accurate Potassium quantif ication in these patients send serum separator tube (gold top) for subsequent determinations. ??Contact the Clinical Chemistry Laboratory if there are any qu estions. Chloride 108 (H) 98 - 107 mmol/L CERNER MILLENN IUM CO2 27 22 - 31 mmol/L CERNER MILLENNI UM Anion Gap 3 (L) 5 - 15 mmol/L CERNER MILLENNIU M Specimen Anatomical Collection Method Collection Time Receive d Time (Source) Location / / Volume Laterality Blood specimen 09/05/2010 12:35 1 (specimen) AM EDT 12:42 AM EDT Edu Jacobs MD CHEMISTRY ORDERABLES Performing Organization Address City/[facility] [place] [address] CERNER MILLENNIUM POCT GLUCOSE LAB USE ONLY (09/05/2010 12:34 AM EDT) P athologist Signature POC Glucose 116 60 - 199 CERNER mg/dL MILLENNIUM Comment: Supplemental ranges: <110 mg/dL before meals <200 mg/dL all other times of the day Specimen Anatomical Collection Method Collection Time Receive d Time (Source) Location / / Volume Laterality Blood specimen 09/05/2010 12:34 1 (specimen) AM EDT 12:34 AM EDT Benson Leahy MD POINT OF CARE TEST ORDERABLE S Performing Organization Address City/[facility] [place] [address] CERNER MILLENNIUM POCT GLUCOSE LAB USE ONLY (09/05/2010 12:03 AM EDT) P athologist Signature POC Glucose 114 60 - 199 CERNER mg/dL MILLENNIUM Comment: Supplemental ranges: <110 mg/dL before meals <200 mg/dL all other times of the day Specimen Anatomical Collection Method Collection Time Receive d Time (Source) Location / / Volume Laterality Blood specimen 09/05/2010 12:03 1 (specimen) AM EDT 12:03 AM EDT Benson Leahy MD POINT OF CARE TEST ORDERABLE S Performing Organization Address City/[facility]/[place] [address] CERNER MILLENNIUM POCT GLUCOSE LAB USE ONLY (09/04/2010 7:59 PM EDT) athologist Signature POC Glucose 115 60 - 199 CERNER mg/dL MILLENNIUM Comment: Supplemental ranges: <110 mg/dL before meals <200 mg/dL all other times of the day Specimen Anatomical Collection Method Collection Time Receive d Time (Source) Location / / Volume Laterality Blood specimen 09/04/2010 7:59 PM 011 7:59 (specimen) EDT PM EDT Benson Leahy MD POINT OF CARE TEST ORDERABLE S Performing Organization Address [facility]/[place] [address] CERNER MILLENNIUM POCT GLUCOSE LAB USE ONLY (09/04/2010 6:18 PM EDT) athologist Signature POC Glucose 124 60 - 199 CERNER mg/dL MILLENNIUM Comment: Supplemental ranges: <110 mg/dL before meals <200 mg/dL all other times of the day Specimen Anatomical Collection Method Collection Time Receive d Time (Source) Location / / Volume Laterality Blood specimen 09/04/2010 6:18 PM 011 6:18 (specimen) EDT PM EDT Benson Leahy MD POINT OF CARE TEST ORDERABLE S Performing Organization Address City/[facility]/[place] [address] CERNER MILLENNIUM Potassium (09/04/2010 4:10 PM EDT) athologist Signature Potassium 3.6 3.5 - 5.0 CERNER mmol/L MILLENNIUM Comment: Please note: ??Patients with WBC >100,00 0 may have falsely elevated Potassium levels. ??For accurate Potassium quantif ication in these patients send serum separator tube (gold top) for subsequent determinations. ??Contact the Clinical Chemistry Laboratory if there are any qu estions. Specimen Anatomical Collection Method Collection Time Receive d Time (Source) Location / / Volume Laterality Blood specimen 09/04/2010 4:10 PM 011 4:26 (specimen) EDT PM EDT Dayton Zepeda III, MD CHEMISTRY ORDERABLES Performing Organization Address City/[facility]/[place] [address] CERNER MILLENNIUM POCT GLUCOSE LAB USE ONLY (09/04/2010 2:34 PM EDT) athologist Signature POC Glucose 144 60 - 199 CERNER mg/dL MILLSentientIUM Comment: Supplemental ranges: <110 mg/dL before meals <200 mg/dL all other times of the day Specimen Anatomical Collection Method Collection Time Receive d Time (Source) Location / / Volume Laterality Blood specimen 09/04/2010 2:34 PM 011 2:34 (specimen) EDT PM EDT Benson Leahy MD POINT OF CARE TEST ORDERABLE S Performing Organization Address City/[facility]/ZIP Code Phon e Number [address] CERNER MILLENNIUM XR Fluoro Tube placement (09/04/2010 1:44 PM EDT) Anatomical Region Laterality Modality N/A Radiographic Imaging Specimen (Source) Anatomical Collection Method Collection Time Re ceived Time Location / / Volume Laterality 09/04/2010 1:44 PM EDT Impressions 09/05/2010 1:54 PM EDT IMPRESSION: Normal gastric filling of stomach after contrast injection via G-tube. No leak Film and interpretation reviewed by the attending Narrative 09/05/2010 1:54 PM EDT PEG TUBE PLACEMENT UNDER FLUOROSCOPY: INDICATION: ??Question for tube placemen t and possible intraperitoneal leakage. TECHNIQUE: ??Gastrografin injection of G -tube under fluoroscopy. FINDINGS: ??G-tube was identified in the left upper quadrant; there was no drainage or erythema surrounding the tub e. The tube was opened and 50 cc of Gastrografin injection under fluoroscopy was performed, which demonstrated normal filling of the stomach. There wer e no leaks or stenoses found. Bilateral pigtail chest tubes seen on this exam. Procedure Note Estefania Harris MD - 09/05/2010Formatt ing of this note might be different from the original. PEG TUBE PLACEMENT UNDER FLUOROSCOPY: INDICATION: Question for tube placement and possible intraperitoneal leakage. TECHNIQUE: Gastrografin injection of G-t ube under fluoroscopy. FINDINGS: G-tube was identified in the l eft upper quadrant; there was no drainage or erythema surrounding the tub e. The tube was opened and 50 cc of Gastrografin injection under fluoroscopy was performed, which demonstrated normal filling of the stomach. There wer e no leaks or stenoses found. Bilateral pigtail chest tubes seen on this exam. IMPRESSION IMPRESSION: Normal gastric filling of stomach after contrast injection via G-tube. No leak Film and interpretation reviewed by the attending Edu Jacobs MD IMG FLUORO ORDERABLES POCT GLUCOSE LAB USE ONLY (09/04/2010 8:16 AM EDT) athologist Signature POC Glucose 163 60 - 199 CERNER mg/dL MILLENNIUM Comment: Supplemental ranges: <110 mg/dL before meals <200 mg/dL all other times of the day Specimen Anatomical Collection Method Collection Time Receive d Time (Source) Location / / Volume Laterality Blood specimen 09/04/2010 8:16 AM 011 8:16 (specimen) EDT AM EDT Benson Leahy MD POINT OF CARE TEST ORDERABLE S Performing Organization Address City/State/ZIP Code Phon e Number [place] [id number] CERNER MILLENNIUM EKG 12 Lead (09/04/2010 7:27 AM EDT) Component Value Ref Range Test Analysis Performed Pathologis t Method Time At Signature Ventricular rate 113 BPM MUSE SYSTEM Atrial Rate 113 BPM MUSE SYSTEM P-R Interval 148 ms MUSE SYSTEM QRS Duration 78 ms MUSE SYSTEM Q-T Interval 352 ms MUSE SYSTEM QTC Calculated 482 ms MUSE SYSTEM (Bezet) Calculated P [place] 84 degrees MUSE SYSTEM Calculated R [place] 53 degrees MUSE SYSTEM Calculated T [place] 83 degrees MUSE SYSTEM INTERPRETATION Sinus tachycardia MUSE SY STEM T wave abnormality, consider anterolateral ischemia Abnormal ECG When compared with ECG of 31-AUG-2010 14:49, No significant change was found Confirmed by MD Ramon, Barron Ragland ([id number]) on 09/04/2010 12:08:40 PM Specimen Anatomical Collection Method Collection Time Receive d Time (Source) Location / / Volume Laterality 09/04/2010 7:27 AM 201 1 EDT 12:08 PM EDT Dayton Zepeda III, MD ECG ORDERABLES Performing Organization Address City/State/ZIP Code Phon e Number MUSE SYSTEM (ABNORMAL) Basic Metabolic Panel (non-fasting) (09/04/2010 6:20 AM EDT) P athologist Signature Glucose Lvl 144 60 - 199 CERNER mg/dL MILLENNIUM Comment: Diabetes: >=200 mg/dL plus symp toms BUN 5 (L) 8 - 18 mg/dL CERNER MILLENNIUM Creatinine 0.32 (L) 0.70 - 1.20 mg/dL CERNER MILL ENNIUM Sodium 137 135 - 145 mmol/L CERNER ORLY NIUM Potassium 3.9 3.5 - 5.0 mmol/L CERNER ORLY NIUM Comment: Please note: ??Patients with WBC >100,00 0 may have falsely elevated Potassium levels. ??For accurate Potassium quantif ication in these patients send serum separator tube (gold top) for subsequent determinations. ??Contact the Clinical Chemistry Laboratory if there are any qu estions. Chloride 105 98 - 107 mmol/L CERNER MILLENN IUM CO2 28 22 - 31 mmol/L CERNER MILLENNI UM Anion Gap 4 (L) 5 - 15 mmol/L CERNER MILLENNIU M Calcium 8.0 (L) 8.5 - 10.5 mg/dL CERNER ORLY NIUM Estimated GFR >60 >=60 CERNER MILLENNIU M Comment: The National Kidney Disease Education Pr ogram (NKDEP) has recommended all laboratories report estimated GFR (eGFR) along with plasma creatinine measurements to assist you with recognit ion of early kidney disease. Caveats: ??Plasma creatinine should be a t steady-state (unchanged within the past week). For patient s multiply eGFR by 1.2.MDRD equation has not been validated for pediatric pat ients and is only valid for patients with age >= 18 years. At present, NKDEP does NOT recommend usi ng the MDRD equation for drug dosing purposes and pharmacists should continue to use their current dosing methods. In addition, numerical eGFR values great er than 60 ml/min/1.73 square meters should be treated as > 60, and not an ex act number due to greater inaccuracies at these higher values. Per NKDEP, they classify normal renal function as any GFR >60ml/min/1.73 square meters; chronic kidney disease wh en GFR <60, and renal failure when GFR <15. ??This calculation may not be valid for patients with atypical muscle mass (very lean or obese), acute renal failur e, and in patients with diabetic kidney disease. References: http://nkdep.nih.gov/resources/NKDEP_Sug gestn4Labs_0606_508.pdf http://www.kidney.org/professionals/kls/ pdf/faq_gfr.pdf Specimen Anatomical Collection Method Collection Time Receive d Time (Source) Location / / Volume Laterality Blood specimen 09/04/2010 6:20 AM 011 6:26 (specimen) EDT AM EDT Dayton Zepeda III, MD CHEMISTRY ORDERABLES Performing Organization Address City/[facility]/[place] [address] [facility] FolicaIUM POCT GLUCOSE LAB USE ONLY (09/04/2010 4:18 AM EDT) athologist Signature POC Glucose 161 60 - 199 CERNER mg/dL MILLENNIUM Comment: Supplemental ranges: <110 mg/dL before meals <200 mg/dL all other times of the day Specimen Anatomical Collection Method Collection Time Receive d Time (Source) Location / / Volume Laterality Blood specimen 09/04/2010 4:18 AM 011 4:18 (specimen) EDT AM EDT Benson Leahy MD POINT OF CARE TEST ORDERABLE S Performing Organization Address City/[facility]/ZIP Code Phon e Number [address] [facility] MILLENNIUM (ABNORMAL) REFLEX LAB-A-DIFF (09/04/2010 4:00 AM EDT) Patholo gist Method Time Signature Neutrophils % 74.3 (H) 34.0 - CERNER 71.0 % MILLENNIUM Neutr Abs (ANC) 7.42 (H) 1.50 - CERNER 6.30 MILLENNIUM x10(3)/mc L Lymphocytes % 9.9 (L) 19.0 - CERNER 53.0 % MILLENNIUM Lymphocytes Abs 1.0 1.0 - 3.6 CERNER x10(3)/mc MILLENNIUM L Monocytes % 12.8 4.0 - CERNER 13.0 % MILLENNIUM Monocyte Abs 1.3 (H) 0.2 - 1.0 CERNER x10(3)/mc MILLENNIUM L Eosinophils % 2.5 0.0 - 7.0 CERNER % MILLENNIUM Eosinophils Abs 0.3 0.0 - 0.5 CERNER x10(3)/mc MILLENNIUM L Basophils % 0.2 0.0 - 2.0 CERNER % MILLENNIUM Basophils Abs 0.0 0.0 - 0.2 CERNER x10(3)/mc MILLENNIUM L Immature Gran % 0.30 0.00 - CERNER 0.66 % MILLENNIUM Comment: Immature granulocytes(IG's)percentage an d absolute count will include metamyelocytes, myelocytes, and promyelo cytes. Blood smears from CBCs yielding IG's will be scanned manually for concor dance. If this scan disagrees with the automated IG or if promyelocytes are not ed, a manual differential will be performed. Liss Gran Abs 0.03 0.00 - 0.05 x10(3)/mcL CER NER MILLENNIUM Specimen Anatomical Collection Method Collection Time Receive d Time (Source) Location / / Volume Laterality Blood specimen 09/04/2010 4:00 AM 011 4:23 (specimen) EDT AM EDT Dayton Zepeda III, MD HEMATOLOGY ORDERABLES Performing Organization Address City/State/[place] [address] CERNER MILLENNIUM (ABNORMAL) Potassium (09/04/2010 4:00 AM EDT) athologist Signature Potassium 3.4 (L) 3.5 - 5.0 CERNER mmol/L MILLENNIUM Comment: Please note: ??Patients with WBC >100,00 0 may have falsely elevated Potassium levels. ??For accurate Potassium quantif ication in these patients send serum separator tube (gold top) for subsequent determinations. ??Contact the Clinical Chemistry Laboratory if there are any qu estions. Specimen Anatomical Collection Method Collection Time Receive d Time (Source) Location / / Volume Laterality Blood specimen 09/04/2010 4:00 AM 011 4:23 (specimen) EDT AM EDT Dayton Zepeda III, MD CHEMISTRY ORDERABLES Performing Organization Address City/[facility] Phon e Number [address] CERNER MILLENNIUM (ABNORMAL) CBC (with Diff) (09/04/2010 4:00 AM EDT) athologist Signature WBC 10.0 4.0 - 10.0 CERNER x10(3)/mcL MILLENNIUM RBC 3.57 (L) 3.93 - CERNER 5.22 MILLENNIUM x10(6)/mcL Hemoglobin 9.9 (L) 11.2 - CERNER 15.7 gm/dL MILLENNIUM Hematocrit 30.1 (L) 34.0 - CERNER 45.0 % MILLENNIUM MCV 84.3 79.0 - CERNER 94.0 fL MILLENNIUM MCH 27.7 26.6 - CERNER 32.2 pg MILLENNIUM MCHC 32.9 32.0 - CERNER 36.5 gm/dL MILLENNIUM Platelets 790 (H) 145 - 370 CERNER x10(3)/mcL MILLENNIUM RDWSD 45.9 35.0 - CERNER 46.0 fL MILLENNIUM RDWCV 14.7 (H) 10.9 - CERNER 14.4 % MILLENNIUM MPV 9.1 9.0 - 12.0 CERNER fL MILLENNIUM Specimen Anatomical Collection Method Collection Time Receive d Time (Source) Location / / Volume Laterality Blood specimen 09/04/2010 4:00 AM 011 4:23 (specimen) EDT AM EDT Dayton Zepeda III, MD HEMATOLOGY ORDERABLES Performing Organization Address City/[facility] [place] [address] CERNER MILLENNIUM POCT GLUCOSE LAB USE ONLY (09/04/2010 12:11 AM EDT) athologist Signature POC Glucose 140 60 - 199 CERNER mg/dL MILLENNIUM Comment: Supplemental ranges: <110 mg/dL before meals <200 mg/dL all other times of the day Specimen Anatomical Collection Method Collection Time Receive d Time (Source) Location / / Volume Laterality Blood specimen 09/04/2010 12:11 1 (specimen) AM EDT 12:11 AM EDT Benson Leahy MD POINT OF CARE TEST ORDERABLE S Performing Organization Address City/State/[place] [address] CERNER MILLENNIUM POCT GLUCOSE LAB USE ONLY (09/03/2010 8:41 PM EDT) athologist Signature POC Glucose 166 60 - 199 CERNER mg/dL MILLENNIUM Comment: Supplemental ranges: <110 mg/dL before meals <200 mg/dL all other times of the day Specimen Anatomical Collection Method Collection Time Receive d Time (Source) Location / / Volume Laterality Blood specimen 09/03/2010 8:41 PM 011 8:41 (specimen) EDT PM EDT Benson Leahy MD POINT OF CARE TEST ORDERABLE S Performing Organization Address City/State/[place] [address] CERNER MILLENNIUM POCT GLUCOSE LAB USE ONLY (09/03/2010 6:26 PM EDT) athologist Signature POC Glucose 126 60 - 199 CERNER mg/dL MILLENNIUM Comment: Supplemental ranges: <110 mg/dL before meals <200 mg/dL all other times of the day Specimen Anatomical Collection Method Collection Time Receive d Time (Source) Location / / Volume Laterality Blood specimen 09/03/2010 6:26 PM 011 6:26 (specimen) EDT PM EDT Bensno Leahy MD POINT OF CARE TEST ORDERABLE S Performing Organization Address City/State/[place] [address] CERNER MILLENNIUM Urinalysis without microscopic (09/03/2010 2:46 PM EDT) [facility] gist Method Time Signature Glucose UA Negative Negative CERNER mg/dL [facility] Protein UA Negative mg/dL [facility] MILLENNIUM Bilirubin UA Negative Negative CERNER mg/dL [facility] Urobilinogen UA Normal mg/dL [facility] pH UA 6.5 5.0 - 8.0 CERNER [facility] Blood UA Negative mg/dL [facility] M[facility]CLE[facility]KY [facility] Ketones UA Negative mg/dL CERNER MILLENNIUM Nitrite UA Negative CERNER MILLENNIUM Leukocytes UA Negative mcL [facility] Appearance UA Clear Clear [facility] Spec Fitzgerald UA 1.004 1.002 - CERNER 1.030 MILLENNIUM Color UA Yellow Yellow [facility] Specimen Anatomical Collection Method Collection Time Receive d Time (Source) Location / / Volume Laterality Urine specimen 09/03/2010 2:46 PM 011 2:56 (specimen) EDT PM EDT Laureano Leslie MD URINE ORDERABLES Performing Organization Address City/State/[place] [address] [facility] POCT GLUCOSE LAB USE ONLY (09/03/2010 11:42 AM EDT) athologist [facility] POC Glucose 132 60 - 199 CERNER mg/dL [facility] Comment: Supplemental ranges: <110 mg/dL before meals <200 mg/dL all other times of the day Specimen Anatomical Collection Method Collection Time Receive d Time (Source) Location / / Volume Laterality Blood specimen 09/03/2010 11:42 1 (specimen) AM EDT 11:42 AM EDT Benson Leahy MD POINT OF CARE TEST ORDERABLE S Performing Organization Address City/State/[place] [address] [facility] Duplex Study for DVT, Bilat legs (09/03/2010 9:29 AM EDT) Component Value Ref Test Analysis Performed At [facility] Range Method Time Signature VB Text VASCUBASE Report Department: Vascular Surgery Lab Patient: [id number] (DEN HAN) CPT Code: 69040 ICD-9: 959.8 Referring Physician: DAYTON ZEPEDA Indication: ?? Surveillance, Trauma. ICD9 Diagnosis Code: 959.8 RIGHT: Patent common femoral vein and popliteal vein with sp ontaneous, respirophasic Doppler wavefo sean that respond normally to augmentation maneuvers. The common femoral vein, sap henofemoral junction, femoral vein through the thigh and the popliteal vein are f ully compressible. Unable to evaluate the posterior tibial or peroneal veins due to lower leg cast; therefore, c annot exclude thrombus in the calf. LEFT: Patent popliteal, posterior tibial and peroneal veins, but unable to exclude small non-occlusive thrombus due to patient pain and positioning. Patent common femoral vein and popliteal vein w ith spontaneous, respirophasic Doppler waveforms that respond normally to augmentation maneuvers. The common femoral vein, saphenofemoral junction, femoral vein through the thig h are fully compressible. Interpretation: RIGHT: No evidence of lower extremity deep vein thrombosis i n area's investigated. LEFT: No evidence of lower extremity deep vein thrombosis in area's investigated. Signed by AARON ASHLEY on 2010-09-06 04:34:10 PM VB Text End of Report [email or web address] Report Specimen (Source) Anatomical Collection Method Collection Time Re ceived Time Location / / Volume Laterality 09/03/2010 9:29 AM EDT Dayton Zepeda III, MD VASCULAR ORDERABLES Performing Organization Address City/State/ZIP Code Phon e Number [id number] Vancomycin, trough (09/03/2010 8:35 AM EDT) P athologist Signature Vanc Trough 3.4 mg/L [facility] Comment: Therapeutic range for complicated infect ions such as bacteremia, endocarditis, osteomyelitis, meningitis, and hospital- acquired pneumonia caused by S. aureus: 15-20 mg/L Therapeutic range for other indications: 10-15 mg/L Toxic: >30 mg/L Reference: Vancomycin Therapeutic Monitoring: Nader mills and Recommendations from the ASHP, IDSA and SIDP Task Force. ??Am J Health- Syst Pharm. 2009; 66:82-98 Specimen Anatomical Collection Method Collection Time Receive d Time (Source) Location / / Volume Laterality Blood specimen 09/03/2010 8:35 AM 011 8:51 (specimen) EDT AM EDT Dayton Zepeda III, MD CHEMISTRY ORDERABLES Performing Organization Address City/State/ZIP Code Phon e Number [place] [id number] DAVID Yemeksepeti XR tibia fibula AP & lateral (09/03/2010 8:19 AM EDT) Anatomical Region Laterality Modality N/A Radiographic Imaging Specimen (Source) Anatomical Collection Method Collection Time Re ceived Time Location / / Volume Laterality 09/03/2010 8:19 AM EDT Impressions 09/04/2010 9:16 AM EDT IMPRESSION: ?? 1. ??Status post interval fixation of th e bicondylar tibial plateau fracture with near anatomic alignment. 2. ??Re-demonstration of unstable osteoc hondral injury of the medial femoral condyle. 3. ??Postsurgical changes at the left an kle with internal fixation of the syndesmosis. ? Narrative 09/04/2010 9:16 AM EDT TWO VIEWS OF THE LEFT TIB/FIB, 09/03/10: INDICATION: ??Status post PAULA plate darien cement. COMPARISON: ??08/15/10. FINDINGS: ??Status post internal fixatio n of the bicondylar tibial plateau fracture with PAULA plate and screws. ??T he alignment appears near anatomic. ?? Additionally, there is a syndesmotic scr ew at the distal tib/fib syndesmosis. ?? Also again noted is the osteochondral in jury to the medial femoral condyle. ?? There is mild distraction of the fractur e fragment. ??Proximal fibular fracture is also apparent, with callus deposition . ?? Procedure Note Neto Aldridge MD - 09/04/2010Formattin g of this note might be different from the original. TWO VIEWS OF THE LEFT TIB/FIB, 09/03/10: INDICATION: Status post PAULA plate place ment. COMPARISON: 08/15/10. FINDINGS: Status post internal fixation of the bicondylar tibial plateau fracture with PAULA plate and screws. The alignment appears near anatomic. Additionally, there is a syndesmotic scr ew at the distal tib/fib syndesmosis. Also again noted is the osteochondral in jury to the medial femoral condyle. There is mild distraction of the fractur e fragment. Proximal fibular fracture is also apparent, with callus deposition . IMPRESSION IMPRESSION: 1. Status post interval fixation of the bicondylar tibial plateau fracture with near anatomic alignment. 2. Re-demonstration of unstable osteocho ndral injury of the medial femoral condyle. 3. Postsurgical changes at the left ankl e with internal fixation of the syndesmosis. Dayton Zepeda III, MD IMG DX ORDERABLES POCT GLUCOSE LAB USE ONLY (09/03/2010 8:08 AM EDT) P athologist Signature POC Glucose 120 60 - 199 CERNER mg/dL MILLENNIUM Comment: Supplemental ranges: <110 mg/dL before meals <200 mg/dL all other times of the day Specimen Anatomical Collection Method Collection Time Receive d Time (Source) Location / / Volume Laterality Blood specimen 09/03/2010 8:08 AM 011 8:08 (specimen) EDT AM EDT Benson Leahy MD POINT OF CARE TEST ORDERABLE S Performing Organization Address City/State/[place] [address] CERNER MILLENNIUM (ABNORMAL) REFLEX LAB-A-DIFF (09/03/2010 5:00 AM EDT) [facility] Method Time Signature Neutrophils % 73.2 (H) 34.0 - CERNER 71.0 % MILLENNIUM Neutr Abs (ANC) 5.85 1.50 - CERNER 6.30 MILLENNIUM x10(3)/mc L Lymphocytes % 10.7 (L) 19.0 - CERNER 53.0 % MILLENNIUM Lymphocytes Abs 0.9 (L) 1.0 - 3.6 CERNER x10(3)/mc MILLENNIUM L Monocytes % 12.2 4.0 - CERNER 13.0 % MILLENNIUM Monocyte Abs 1.0 0.2 - 1.0 CERNER x10(3)/mc MILLENNIUM L Eosinophils % 3.6 0.0 - 7.0 CERNER % MILLENNIUM Eosinophils Abs 0.3 0.0 - 0.5 CERNER x10(3)/mc MILLENNIUM L Basophils % 0.2 0.0 - 2.0 CERNER % MILLENNIUM Basophils Abs 0.0 0.0 - 0.2 CERNER x10(3)/mc MILLENNIUM L Immature Gran % 0.10 0.00 - CERNER 0.66 % MILLENNIUM Comment: Immature granulocytes(IG's)percentage an d absolute count will include metamyelocytes, myelocytes, and promyelo cytes. Blood smears from CBCs yielding IG's will be scanned manually for concor dance. If this scan disagrees with the automated IG or if promyelocytes are not ed, a manual differential will be performed. Liss Gran Abs 0.01 0.00 - 0.05 x10(3)/mcL CER NER MILLENNIUM Specimen Anatomical Collection Method Collection Time Receive d Time (Source) Location / / Volume Laterality Blood specimen 09/03/2010 5:00 AM 011 5:02 (specimen) EDT AM EDT Dayton Zepeda III, MD HEMATOLOGY ORDERABLES Performing Organization Address City/State/[place] [address] CERNER MILLENNIUM (ABNORMAL) CBC (with Diff) (09/03/2010 5:00 AM EDT) P athologist Signature WBC 8.0 4.0 - 10.0 CERNER x10(3)/mcL MILLENNIUM RBC 3.02 (L) 3.93 - CERNER 5.22 MILLENNIUM x10(6)/mcL Hemoglobin 8.4 (L) 11.2 - CERNER 15.7 gm/dL MILLENNIUM Hematocrit 25.7 (L) 34.0 - CERNER 45.0 % MILLENNIUM MCV 85.1 79.0 - CERNER 94.0 fL MILLENNIUM MCH 27.8 26.6 - CERNER 32.2 pg MILLENNIUM MCHC 32.7 32.0 - CERNER 36.5 gm/dL MILLENNIUM Platelets 609 (H) 145 - 370 CERNER x10(3)/mcL MILLENNIUM RDWSD 47.3 (H) 35.0 - CERNER 46.0 fL MILLENNIUM RDWCV 15.2 (H) 10.9 - CERNER 14.4 % MILLENNIUM MPV 8.8 (L) 9.0 - 12.0 CERNER fL MILLENNIUM Specimen Anatomical Collection Method Collection Time Receive d Time (Source) Location / / Volume Laterality Blood specimen 09/03/2010 5:00 AM 011 5:02 (specimen) EDT AM EDT Dayton Zepeda III, MD HEMATOLOGY ORDERABLES Performing Organization Address City/State/[place] [address] CERNER MILLENNIUM POCT GLUCOSE LAB USE ONLY (09/03/2010 4:58 AM EDT) athologist Signature POC Glucose 114 60 - 199 CERNER mg/dL MILLENNIUM Comment: Supplemental ranges: <110 mg/dL before meals <200 mg/dL all other times of the day Specimen Anatomical Collection Method Collection Time Receive d Time (Source) Location / / Volume Laterality Blood specimen 09/03/2010 4:58 AM 011 4:58 (specimen) EDT AM EDT Benson Leahy MD POINT OF CARE TEST ORDERABLE S Performing Organization Address City/[facility]/ZIP Code Phon e Number [address] CERNER MILLENNIUM POCT GLUCOSE LAB USE ONLY (09/03/2010 12:32 AM EDT) P athologist Signature POC Glucose 96 60 - 199 CERNER mg/dL MILLENNIUM Comment: Supplemental ranges: <110 mg/dL before meals <200 mg/dL all other times of the day Specimen Anatomical Collection Method Collection Time Receive d Time (Source) Location / / Volume Laterality Blood specimen 09/03/2010 12:32 1 (specimen) AM EDT 12:32 AM EDT Benson Leahy MD POINT OF CARE TEST ORDERABLE S Performing Organization Address City/State/[place] [address] CERNER MILLENNIUM POCT GLUCOSE LAB USE ONLY (09/02/2010 8:40 PM EDT) P athologist Signature POC Glucose 112 60 - 199 CERNER mg/dL MILLENNIUM Comment: Supplemental ranges: <110 mg/dL before meals <200 mg/dL all other times of the day Specimen Anatomical Collection Method Collection Time Receive d Time (Source) Location / / Volume Laterality Blood specimen 09/02/2010 8:40 PM 011 8:40 (specimen) EDT PM EDT Benson Leahy MD POINT OF CARE TEST ORDERABLE S Performing Organization Address City/[facility]/[place] [address] CERNER MILLENNIUM POCT GLUCOSE LAB USE ONLY (09/02/2010 3:43 PM EDT) P athologist Signature POC Glucose 121 60 - 199 CERNER mg/dL MILLENNIUM Comment: Supplemental ranges: <110 mg/dL before meals <200 mg/dL all other times of the day Specimen Anatomical Collection Method Collection Time Receive d Time (Source) Location / / Volume Laterality Blood specimen 09/02/2010 3:43 PM 011 3:43 (specimen) EDT PM EDT Benson Leahy MD POINT OF CARE TEST ORDERABLE S Performing Organization Address City/[facility]/[place] [address] CERNER MILLENNIUM (ABNORMAL) Urinalysis without microscopic (09/02/2010 3:33 PM EDT) [facility] Method Time Signature Glucose UA Negative Negative CERNER mg/dL MILLENNIUM Protein UA Negative mg/dL CERNER MILLENNIUM Bilirubin UA Negative Negative CERNER mg/dL MILLENNIUM Urobilinogen UA Normal mg/dL CERNER MILLENNIUM pH UA 5.0 5.0 - 8.0 CERNER MILLENNIUM Blood UA Negative mg/dL CERNER MILLENNIUM Ketones UA Trace (A) Neg mg/dL CERNER MILLENNIUM Nitrite UA Negative CERNER MILLENNIUM Leukocytes UA Negative mcL CERNER MILLENNIUM Appearance UA Clear Clear CERNER MILLENNIUM Spec Fitzgerald UA 1.009 1.002 - CERNER 1.030 MILLENNIUM Color UA Yellow Yellow CERNER MILLENNIUM Specimen Anatomical Collection Method Collection Time Receive d Time (Source) Location / / Volume Laterality Urine specimen 09/02/2010 3:33 PM 011 3:54 (specimen) EDT PM EDT Dayton Zepeda III, MD URINE ORDERABLES Performing Organization Address City/[facility]/[place] [address] CERNER MILLENNIUM POCT GLUCOSE LAB USE ONLY (09/02/2010 11:58 AM EDT) athologist Signature POC Glucose 112 60 - 199 CERNER mg/dL MILLENNIUM Comment: Supplemental ranges: <110 mg/dL before meals <200 mg/dL all other times of the day Specimen Anatomical Collection Method Collection Time Receive d Time (Source) Location / / Volume Laterality Blood specimen 09/02/2010 11:58 1 (specimen) AM EDT 11:58 AM EDT Benson Leahy MD POINT OF CARE TEST ORDERABLE S Performing Organization Address City/[facility]/ZIP Code Phon e Number [address] CERNER MILLENNIUM Potassium (09/02/2010 11:43 AM EDT) athologist Signature Potassium 4.3 3.5 - 5.0 CERNER mmol/L MILLENNIUM Comment: Please note: ??Patients with WBC >100,00 0 may have falsely elevated Potassium levels. ??For accurate Potassium quantif ication in these patients send serum separator tube (gold top) for subsequent determinations. ??Contact the Clinical Chemistry Laboratory if there are any qu estions. Specimen Anatomical Collection Method Collection Time Receive d Time (Source) Location / / Volume Laterality Blood specimen 09/02/2010 11:43 1 (specimen) AM EDT 11:51 AM EDT Dayton Zepeda III, MD CHEMISTRY ORDERABLES Performing Organization Address City/[facility]/ZIP Code Phon e Number [address] CERNER MILLENNIUM POCT GLUCOSE LAB USE ONLY (09/02/2010 7:40 AM EDT) athologist Signature POC Glucose 94 60 - 199 CERNER mg/dL MILLENNIUM Comment: Supplemental ranges: <110 mg/dL before meals <200 mg/dL all other times of the day Specimen Anatomical Collection Method Collection Time Receive d Time (Source) Location / / Volume Laterality Blood specimen 09/02/2010 7:40 AM 011 7:40 (specimen) EDT AM EDT Benson Leahy MD POINT OF CARE TEST ORDERABLE S Performing Organization Address City/[facility]/[place] [address] CERNER MILLENNIUM POCT GLUCOSE LAB USE ONLY (09/02/2010 4:04 AM EDT) P athologist Signature POC Glucose 89 60 - 199 CERNER mg/dL MILLENNIUM Comment: Supplemental ranges: <110 mg/dL before meals <200 mg/dL all other times of the day Specimen Anatomical Collection Method Collection Time Receive d Time (Source) Location / / Volume Laterality Blood specimen 09/02/2010 4:04 AM 011 4:04 (specimen) EDT AM EDT Benson Leahy MD POINT OF CARE TEST ORDERABLE S Performing Organization Address City/[facility]/ZIP Code Phon e Number [address] CERNER MILLENNIUM (ABNORMAL) REFLEX LAB-A-DIFF (09/02/2010 4:00 AM EDT) Patholo gist Method Time Signature Neutrophils % 77.2 (H) 34.0 - CERNER 71.0 % MILLENNIUM Neutr Abs (ANC) 7.79 (H) 1.50 - CERNER 6.30 MILLENNIUM x10(3)/mc L Lymphocytes % 8.9 (L) 19.0 - CERNER 53.0 % MILLENNIUM Lymphocytes Abs 0.9 (L) 1.0 - 3.6 CERNER x10(3)/mc MILLENNIUM L Monocytes % 11.0 4.0 - CERNER 13.0 % MILLENNIUM Monocyte Abs 1.1 (H) 0.2 - 1.0 CERNER x10(3)/mc MILLENNIUM L Eosinophils % 2.3 0.0 - 7.0 CERNER % MILLENNIUM Eosinophils Abs 0.2 0.0 - 0.5 CERNER x10(3)/mc MILLENNIUM L Basophils % 0.3 0.0 - 2.0 CERNER % MILLENNIUM Basophils Abs 0.0 0.0 - 0.2 CERNER x10(3)/mc MILLENNIUM L Immature Gran % 0.30 0.00 - CERNER 0.66 % MILLENNIUM Comment: Immature granulocytes(IG's)percentage an d absolute count will include metamyelocytes, myelocytes, and promyelo cytes. Blood smears from CBCs yielding IG's will be scanned manually for concor dangael. If this scan disagrees with the automated IG or if promyelocytes are not ed, a manual differential will be performed. Liss Gran Abs 0.03 0.00 - 0.05 x10(3)/mcL CER NER MILLENNIUM Specimen Anatomical Collection Method Collection Time Receive d Time (Source) Location / / Volume Laterality Blood specimen 09/02/2010 4:00 AM 011 4:11 (specimen) EDT AM EDT Dayton Zepeda III, MD HEMATOLOGY ORDERABLES Performing Organization Address City/State/[place] [address] CERNER MILLENNIUM (ABNORMAL) CBC (with Diff) (09/02/2010 4:00 AM EDT) P athologist Signature WBC 10.1 (H) 4.0 - 10.0 CERNER x10(3)/mcL MILLENNIUM RBC 3.02 (L) 3.93 - CERNER 5.22 MILLENNIUM x10(6)/mcL Hemoglobin 8.5 (L) 11.2 - CERNER 15.7 gm/dL MILLENNIUM Hematocrit 25.9 (L) 34.0 - CERNER 45.0 % MILLENNIUM MCV 85.8 79.0 - CERNER 94.0 fL MILLENNIUM MCH 28.1 26.6 - CERNER 32.2 pg MILLENNIUM MCHC 32.8 32.0 - CERNER 36.5 gm/dL MILLENNIUM Platelets 638 (H) 145 - 370 CERNER x10(3)/mcL MILLENNIUM RDWSD 48.2 (H) 35.0 - CERNER 46.0 fL MILLENNIUM RDWCV 15.3 (H) 10.9 - CERNER 14.4 % MILLENNIUM MPV 8.8 (L) 9.0 - 12.0 CERNER fL MILLENNIUM Specimen Anatomical Collection Method Collection Time Receive d Time (Source) Location / / Volume Laterality Blood specimen 09/02/2010 4:00 AM 011 4:11 (specimen) EDT AM EDT Dayton Zepeda III, MD HEMATOLOGY ORDERABLES Performing Organization Address City/State/[place] [address] CERNER MILLENNIUM (ABNORMAL) Basic Metabolic Panel (non-fasting) (09/02/2010 4:00 AM EDT) athologist Signature Glucose Lvl 94 60 - 199 CERNER mg/dL MILLENNIUM Comment: Diabetes: >=200 mg/dL plus symp toms BUN 9 8 - 18 mg/dL CERNER MILLENNIUM Creatinine 0.42 (L) 0.70 - 1.20 mg/dL CERNER MILL ENNIUM Sodium 136 135 - 145 mmol/L CERNER ORLY NIUM Potassium 4.0 3.5 - 5.0 mmol/L CERNER ORLY NIUM Comment: Please note: ??Patients with WBC >100,00 0 may have falsely elevated Potassium levels. ??For accurate Potassium quantif ication in these patients send serum separator tube (gold top) for subsequent determinations. ??Contact the Clinical Chemistry Laboratory if there are any qu estions. Chloride 107 98 - 107 mmol/L CERNER MILLENN IUM CO2 24 22 - 31 mmol/L CERNER MILLENNI UM Anion Gap 5 5 - 15 mmol/L CERNER MILLENNIU M Calcium 7.7 (L) 8.5 - 10.5 mg/dL CERNER ORLY NIUM Estimated GFR >60 >=60 CERNER MILLENNIU M Comment: The National Kidney Disease Education Pr ogram (NKDEP) has recommended all laboratories report estimated GFR (eGFR) along with plasma creatinine measurements to assist you with recognit ion of early kidney disease. Caveats: ??Plasma creatinine should be a t steady-state (unchanged within the past week). For patient s multiply eGFR by 1.2.MDRD equation has not been validated for pediatric pat ients and is only valid for patients with age >= 18 years. At present, NKDEP does NOT recommend usi ng the MDRD equation for drug dosing purposes and pharmacists should continue to use their current dosing methods. In addition, numerical eGFR values great er than 60 ml/min/1.73 square meters should be treated as > 60, and not an ex act number due to greater inaccuracies at these higher values. Per NKDEP, they classify normal renal function as any GFR >60ml/min/1.73 square meters; chronic kidney disease wh en GFR <60, and renal failure when GFR <15. ??This calculation may not be valid for patients with atypical muscle mass (very lean or obese), acute renal failur e, and in patients with diabetic kidney disease. References: http://nkdep.nih.gov/resources/NKDEP_Sug gestn4Labs_0606_508.pdf http://www.kidney.org/professionals/kls/ pdf/faq_gfr.pdf Specimen Anatomical Collection Method Collection Time Receive d Time (Source) Location / / Volume Laterality Blood specimen 09/02/2010 4:00 AM 011 4:11 (specimen) EDT AM EDT Dayton Zepeda III, MD CHEMISTRY ORDERABLES Performing Organization Address City/State/ZIP Code Phon e Number [address] CERNER MILLENNIUM POCT GLUCOSE LAB USE ONLY (09/02/2010 12:21 AM EDT) athologist Signature POC Glucose 95 60 - 199 CERNER mg/dL MILLENNIUM Comment: Supplemental ranges: <110 mg/dL before meals <200 mg/dL all other times of the day Specimen Anatomical Collection Method Collection Time Receive d Time (Source) Location / / Volume Laterality Blood specimen 09/02/2010 12:21 1 (specimen) AM EDT 12:21 AM EDT Benson Leahy MD POINT OF CARE TEST ORDERABLE S Performing Organization Address City/State/[place] [address] CERNER MILLENNIUM Potassium (09/02/2010 12:20 AM EDT) athologist Signature Potassium 4.5 3.5 - 5.0 CERNER mmol/L [facility] Comment: Please note: ??Patients with WBC >100,00 0 may have falsely elevated Potassium levels. ??For accurate Potassium quantif ication in these patients send serum separator tube (gold top) for subsequent determinations. ??Contact the Clinical Chemistry Laboratory if there are any qu estions. Specimen Anatomical Collection Method Collection Time Receive d Time (Source) Location / / Volume Laterality Blood specimen 09/02/2010 12:20 1 (specimen) AM EDT 12:27 AM EDT Dayton Zepeda III, MD CHEMISTRY ORDERABLES Performing Organization Address City/[facility] Phon e Number [address] CERNER MILLENNIUM Potassium (09/01/2010 8:15 PM EDT) athologist Signature Potassium 4.0 3.5 - 5.0 CERNER mmol/L [facility] Comment: Please note: ??Patients with WBC >100,00 0 may have falsely elevated Potassium levels. ??For accurate Potassium quantif ication in these patients send serum separator tube (gold top) for subsequent determinations. ??Contact the Clinical Chemistry Laboratory if there are any qu estions. Specimen Anatomical Collection Method Collection Time Receive d Time (Source) Location / / Volume Laterality Blood specimen 09/01/2010 8:15 PM 011 8:21 (specimen) EDT PM EDT Dayton Zepeda III, MD CHEMISTRY ORDERABLES Performing Organization Address City/[facility] [place] [address] CERNER MILLENNIUM POCT GLUCOSE LAB USE ONLY (09/01/2010 8:02 PM EDT) athologist Signature POC Glucose 104 60 - 199 CERNER mg/dL [facility] Comment: Supplemental ranges: <110 mg/dL before meals <200 mg/dL all other times of the day Specimen Anatomical Collection Method Collection Time Receive d Time (Source) Location / / Volume Laterality Blood specimen 09/01/2010 8:02 PM 011 8:02 (specimen) EDT PM EDT Benson Leahy MD POINT OF CARE TEST ORDERABLE S Performing Organization Address City/State/ZIP Code Phon e Number [address] CERNER MILLENNIUM POCT GLUCOSE LAB USE ONLY (09/01/2010 4:17 PM EDT) athologist Signature POC Glucose 94 60 - 199 CERNER mg/dL [facility] Comment: Supplemental ranges: <110 mg/dL before meals <200 mg/dL all other times of the day Specimen Anatomical Collection Method Collection Time Receive d Time (Source) Location / / Volume Laterality Blood specimen 09/01/2010 4:17 PM 011 4:17 (specimen) EDT PM EDT Benson Leahy MD POINT OF CARE TEST ORDERABLE S Performing Organization Address City/[facility]/ZIP Code Phon e Number [address] DAVID HUNTLEYENNIUM CENTRAL LINE (09/01/2010 3:20 PM EDT) Narrative Anali Cheney, ANVIL WORKER - 09/01/2010 3:20 PM EDT ANALI CHENEY ? 09/01/2010 ? 3:20:32 PM Central Line Placement Procedure Note Indication for Central Line Insertion: New Catheter: ??access, monitoring and m edication administration This insertion was not to replace a malf unctioning central line. This insertion was due to a suspected ce ntral line associated infection. Location of Procedure: ICU Risks and Benefits: The risks and benefits of this procedure were reviewed and informed consent was obtained. Time Out: Prior to the start of the procedure, the patient's identity, intended procedure, site/side, correct p atient positioning and presence of the site marcus was confirmed as applicable. The medical history and chart were reviewed to rule out potential contraindications to the planned procedu re. Hand Hygiene: The elastic tape inserter did perform hand hygiene pr ior to central line insertion. Procedure Technique: Skin was prepped with chlorhexidine. Skin preparation agent was completely dr y at the time of first skin puncture. The following barrier precautions were u sed:large sterile drape, maske/eye shield, large sterile gown, st erile gloves and cap. 1 ml of 1% Lidocaine was used for skin w heal. Ultrasound was not used for guidance. Procedure Details: A 22 gauge finder needle was used to jennifer ntify the vein. An 18 Ga. X 2.5 inch Catheter needle was placed in vein after blood return identified. Guided by a 0.[address] guide wire, a 9 Fr., 3 lumen, 20 cm catheter was inserted usi ng the Seldinger Technique. Additional Catheter Details: Catheter type: antimicrobial coated. Catheter was a non tunneled. Insertion site was left, subclavian. There was 1 attempt(s). The catheter was sutured to the skin at 1 cm. The central line was placed over a guide wire. Sterile Dressing: CHG integrated tegaderm Findings: Patient tolerated procedure well., Blood returned appropriately. Complications: No Complications. Post Procedure: Chest x-ray ordered. Procedure Comments: NONE Procedure Note Anali Cheney APRN - 09/01/2010 3:10 PM EDT Central Line Placement Procedure Note Indication for Central Line Insertion: New Catheter: access, monitoring and med ication administration This insertion was not to replace a malf unctioning central line. This insertion was due to a suspected ce ntral line associated infection. Location of Procedure: ICU Risks and Benefits: The risks and benefits of this procedure were reviewed and informed consent was obtained. Time Out: Prior to the start of the procedure, the patient's identity, intended procedure, site/side, correct patient positioning and presence of the site marcus was confirmed as applicable. The medical history and chart were reviewed to rule out potential contraind ications to the planned procedure. Hand Hygiene: The elastic tape inserter did perform hand hygiene pr ior to central line insertion. Procedure Technique: Skin was prepped with chlorhexidine. Skin preparation agent was completely dr y at the time of first skin puncture. The following barrier precautions were u sed:large sterile drape, maske/eye shield, large sterile gown, sterile gloves and cap. 1 ml of 1% Lidocaine was used for skin w heal. Ultrasound was not used for guidance. Procedure Details: A 22 gauge finder needle was used to jennifer ntify the vein. An 18 Ga. X 2.5 inch Catheter needle was placed in vein after blood return identified. Guided by a 0.018 inch diameter guide wire, a 9 Fr., 3 lumen, 20 cm catheter was inserted using the Seldinge r Technique. Additional Catheter Details: Catheter type: antimicrobial coated. Catheter was a non tunneled. Insertion site was left, subclavian. There was 1 attempt(s). The catheter was sutured to the skin at 1 cm. The central line was placed over a guide wire. Sterile Dressing: CHG integrated tegaderm Findings: Patient tolerated procedure well., Blood returned appropriately. Complications: No Complications. Post Procedure: Chest x-ray ordered. Procedure Comments: NONE Edu Jacobs MD PROCEDURE/MINOR SURGICAL ORD ERABLES XR chest PA or AP- 1 view (09/01/2010 1:32 PM EDT) Anatomical Region Laterality Modality Chest N/A Radiographic Imaging Specimen (Source) Anatomical Collection Method Collection Time Re ceived Time Location / / Volume Laterality 09/01/2010 1:32 PM EDT Narrative 09/02/2010 8:20 AM EDT SINGLE-VIEW CHEST: CLINICAL: ?? Evaluate LSC. FINDINGS: ??Left central venous catheter , tip at SVC/RA junction, retracted slightly since previous study from 09/01, same day. ??Right central venous catheter removed. ??No pneumothorax. ??N o other changes. ??Persistent left basilar focal atelectasis and/or consolidation. ??Two pleural chest tubes, one on right, and one on left. ??Tracheostomy tube. Procedure Note Yaya Ha MD - 09/02/2010Form atting of this note might be different from the original. SINGLE-VIEW CHEST: CLINICAL: Evaluate LSC. FINDINGS: Left central venous catheter, tip at SVC/RA junction, retracted slightly since previous study from 09/01, same day. Right central venous catheter removed. No pneumothorax. No ot her changes. Persistent left basilar focal atelectasis and/or consolidation. Two pleural chest tubes, one on right, and one on left. Tracheostomy tube. Edu Jacobs MD IMG DX ORDERABLES Potassium (09/01/2010 12:31 PM EDT) P athologist Signature Potassium 3.9 3.5 - 5.0 CERNER mmol/L MILLENNIUM Comment: Please note: ??Patients with WBC >100,00 0 may have falsely elevated Potassium levels. ??For accurate Potassium quantif ication in these patients send serum separator tube (gold top) for subsequent determinations. ??Contact the Clinical Chemistry Laboratory if there are any qu estions. Specimen Anatomical Collection Method Collection Time Receive d Time (Source) Location / / Volume Laterality Blood specimen 09/01/2010 12:31 1 (specimen) PM EDT 12:36 PM EDT Dayton Zepeda III, MD CHEMISTRY ORDERABLES Performing Organization Address City/[facility]/[place] [address] [facility] POCT GLUCOSE LAB USE ONLY (09/01/2010 12:07 PM EDT) athologist Signature POC Glucose 97 60 - 199 CERNER mg/dL [facility] Comment: Supplemental ranges: <110 mg/dL before meals <200 mg/dL all other times of the day Specimen Anatomical Collection Method Collection Time Receive d Time (Source) Location / / Volume Laterality Blood specimen 09/01/2010 12:07 1 (specimen) PM EDT 12:07 PM EDT Benson Leahy MD POINT OF CARE TEST ORDERABLE S Performing Organization Address City/[facility]/[place] [address] sinus WO contrast (09/01/2010 11:43 AM EDT) Anatomical Region Laterality Modality Head Computed Tomography Specimen (Source) Anatomical Collection Method Collection Time Re ceived Time Location / / Volume Laterality 09/01/2010 11:43 AM EDT Impressions 09/02/2010 4:46 PM EDT IMPRESSION: Opacification of the sphenoid and left m axillary sinuses. Material within the left maxillary sinus unchanged and it mo st likely represents blood. No air-fluid level is present within the sp henoid sinus and there is no visible osseous erosion. Narrative 09/02/2010 4:[address] SINUSES WITHOUT CONTRAST: HISTORY: ??Fever FINDINGS: ??There is opacification of th e left maxillary antrum by heterogeneous, but predominantly high-at tenuation material, most likely representing blood from the orbital floo r fracture. The extent of opacification is little changed from the CT of 1. There is opacification of much of the sphenoid sinus. On the prior study, the sphenoid sinus contained an air-fluid level, but that is no longer p resent. The ethmoid, right maxillary, and frontal sinuses are clear. 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 There is rightward nasal septal deviatio n. The lateral aranda of the infundibular are formed by the orbital f loors. The lamina of papyracea appear intact. The cribriform plate is symmetri c. Procedure Note Sylvester Garcia MD - 09/02/2010Format ting of this note might be different from the original. CT SINUSES WITHOUT CONTRAST: HISTORY: Fever FINDINGS: There is opacification of the left maxillary antrum by heterogeneous, but predominantly high-at tenuation material, most likely representing blood from the orbital floo r fracture. The extent of opacification is little changed from the CT of 1. There is opacification of much of the sphenoid sinus. On the prior study, the sphenoid sinus contained an air-fluid level, but that is no longer p resent. The ethmoid, right maxillary, and frontal sinuses are clear. 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 There is rightward nasal septal deviatio n. The lateral aranda of the infundibular are formed by the orbital f loors. The lamina of papyracea appear intact. The cribriform plate is symmetri c. IMPRESSION IMPRESSION: Opacification of the sphenoid and left m axillary sinuses. Material within the left maxillary sinus unchanged and it mo st likely represents blood. No air-fluid level is present within the sp henoid sinus and there is no visible osseous erosion. Dayton Zepeda III, MD IMJono CT ORDERABLES XR chest PA or AP- 1 view (09/01/2010 11:01 AM EDT) Anatomical Region Laterality Modality Chest N/A Radiographic Imaging Specimen (Source) Anatomical Collection Method Collection Time Re ceived Time Location / / Volume Laterality 09/01/2010 11:01 AM EDT Narrative 09/02/2010 8:20 AM EDT SINGLE VIEW CHEST: CLINICAL: ?? Evaluate LSC. FINDINGS: ??New left central venous cath eter, tip at SVC/RA junction, when compared to study from 08/29/10. ??Right central venous catheter, position stable. Left basilar focal atelectasis and/or co nsolidation, new and/or increased since previous study. ??Bilateral pleural ches t tubes, position unchanged. ??No other changes. Procedure Note Yaya Ha MD - 09/02/2010Form atting of this note might be different from the original. SINGLE VIEW CHEST: CLINICAL: Evaluate LSC. FINDINGS: New left central venous cathet er, tip at SVC/RA junction, when compared to study from 08/29/10. Right c entral venous catheter, position stable. Left basilar focal atelectasis and/or co nsolidation, new and/or increased since previous study. Bilateral pleural chest tubes, position unchanged. No other changes. Edu Jacobs MD IMG DX ORDERABLES C. Difficile Screen (09/01/2010 8:41 AM EDT) Analysis Performed At Patho logist Time Signature C Diff Screen Negative Negative CERNER MILLENNIUM Specimen Anatomical Collection Method Collection Time Receive d Time (Source) Location / / Volume Laterality Stool specimen 09/01/2010 8:41 AM 011 9:19 (specimen) EDT AM EDT Edu Jacobs MD MICROBIOLOGY - GENERAL ORDER RITO Performing Organization Address City/State/[place] [address] CERNER MILLENNIUM POCT GLUCOSE LAB USE ONLY (09/01/2010 8:00 AM EDT) P athologist Signature POC Glucose 119 60 - 199 CERNER mg/dL [facility]ILLENNIUM Comment: Supplemental ranges: <110 mg/dL before meals <200 mg/dL all other times of the day Specimen Anatomical Collection Method Collection Time Receive d Time (Source) Location / / Volume Laterality Blood specimen 09/01/2010 8:00 AM 011 8:00 (specimen) EDT AM EDT Benson Leahy MD POINT OF CARE TEST ORDERABLE S Performing Organization Address City/State/ZIP Code Phon e Number [address] CERNER MILLENNIUM (ABNORMAL) HEPATIC FUNCTION PANEL (09/01/2010 5:15 AM EDT) P athologist Signature Total Protein 6.1 (L) 6.4 - 8.3 CERNER gm/dL MILLENNIUM Albumin 2.6 (L) 3.2 - 5.2 CERNER gm/dL MILLENNIUM AST 25 0 - 30 CERNER unit/L MILLENNIUM ALT 27 0 - 30 CERNER unit/L MILLENNIUM Alk Phos 108 (H) 40 - 104 CERNER unit/L MILLENNIUM Total 0.5 0.2 - 1.3 CERNER Bilirubin mg/dL MILLENNIUM Bili, Direct 0.1 0.0 - 0.3 CERNER mg/dL MILLENNIUM Specimen Anatomical Collection Method Collection Time Receive d Time (Source) Location / / Volume Laterality Blood specimen 09/01/2010 5:15 AM 011 5:19 (specimen) EDT AM EDT Dayton Zepeda III, MD CHEMISTRY ORDERABLES Performing Organization Address City/[facility]/ZIP Code Phon e Number [address] CERNER MILLENNIUM (ABNORMAL) REFLEX LAB-A-DIFF (09/01/2010 5:15 AM EDT) Patholo gist Method Time Signature Neutrophils % 85.9 (H) 34.0 - CERNER 71.0 % MILLENNIUM Neutr Abs (ANC) 16.18 (H) 1.50 - CERNER 6.30 MILLENNIUM x10(3)/mc L Lymphocytes % 5.4 (L) 19.0 - CERNER 53.0 % MILLENNIUM Lymphocytes Abs 1.0 1.0 - 3.6 CERNER x10(3)/mc MILLENNIUM L Monocytes % 7.5 4.0 - CERNER 13.0 % MILLENNIUM Monocyte Abs 1.4 (H) 0.2 - 1.0 CERNER x10(3)/mc MILLENNIUM L Eosinophils % 0.9 0.0 - 7.0 CERNER % MILLENNIUM Eosinophils Abs 0.2 0.0 - 0.5 CERNER x10(3)/mc MILLENNIUM L Basophils % 0.1 0.0 - 2.0 CERNER % MILLENNIUM Basophils Abs 0.0 0.0 - 0.2 CERNER x10(3)/mc MILLENNIUM L Immature Gran % 0.20 0.00 - CERNER 0.66 % MILLENNIUM Comment: Immature granulocytes(IG's)percentage an d absolute count will include metamyelocytes, myelocytes, and promyelo cytes. Blood smears from CBCs yielding IG's will be scanned manually for concor dance. If this scan disagrees with the automated IG or if promyelocytes are not ed, a manual differential will be performed. Liss Gran Abs 0.04 0.00 - 0.05 x10(3)/mcL CER NER MILLENNIUM Specimen Anatomical Collection Method Collection Time Receive d Time (Source) Location / / Volume Laterality Blood specimen 09/01/2010 5:15 AM 011 5:18 (specimen) EDT AM EDT Dayton Zepeda III, MD HEMATOLOGY ORDERABLES Performing Organization Address City/State/[place] [address] CERNER MILLENNIUM (ABNORMAL) BMP w/fasting Glucose (09/01/2010 5:15 AM EDT) P athologist Signature Glucose 118 (H) 65 - 99 CERNER Fasting mg/dL MILLENNIUM Comment: ?Fasting* Glucose Interpretive C riteria Normal ?65-99 mg/dL Impaired Fasting glucose ?100-125 mg/dL Consistent with Diabetes Mellitus ? >or= 126 mg/dL *Fasting is defined as no caloric intake for at least 8 hours In the absence of unequivocal hypergly cemia a plasma glucose value of >or= 126 mg/dL should be repeated on a subseq uent day. Diagnosis and Classification of Diabetes Mellitus, Position Statement from the [place] [employer]. ??Diabete s Care, Volume 33, Supplement 1, Feb 2009 BUN 9 8 - 18 mg/dL CERNER MILLENNIUM Creatinine 0.38 (L) 0.70 - 1.20 mg/dL CERNER MILL ENNIUM Sodium 135 135 - 145 mmol/L CERNER ORLY NIUM Potassium 3.5 3.5 - 5.0 mmol/L CERNER ORLY NIUM Comment: Please note: ??Patients with WBC >100,00 0 may have falsely elevated Potassium levels. ??For accurate Potassium quantif ication in these patients send serum separator tube (gold top) for subsequent determinations. ??Contact the Clinical Chemistry Laboratory if there are any qu estions. Chloride 103 98 - 107 mmol/L CERNER MILLENN IUM CO2 23 22 - 31 mmol/L CERNER MILLENNI UM Anion Gap 9 5 - 15 mmol/L CERNER MILLENNIU M Calcium 8.3 (L) 8.5 - 10.5 mg/dL CERNER ORLY NIUM Comment: result rechecked-llu Estimated GFR >60 >=60 CERNER MILLENNIU M Comment: The National Kidney Disease Education Pr ogram (NKDEP) has recommended all laboratories report estimated GFR (eGFR) along with plasma creatinine measurements to assist you with recognit ion of early kidney disease. Caveats: ??Plasma creatinine should be a t steady-state (unchanged within the past week). For patient s multiply eGFR by 1.2.MDRD equation has not been validated for pediatric pat ients and is only valid for patients with age >= 18 years. At present, NKDEP does NOT recommend usi ng the MDRD equation for drug dosing purposes and pharmacists should continue to use their current dosing methods. In addition, numerical eGFR values great er than 60 ml/min/1.73 square meters should be treated as > 60, and not an ex act number due to greater inaccuracies at these higher values. Per NKDEP, they classify normal renal function as any GFR >60ml/min/1.73 square meters; chronic kidney disease wh en GFR <60, and renal failure when GFR <15. ??This calculation may not be valid for patients with atypical muscle mass (very lean or obese), acute renal failur e, and in patients with diabetic kidney disease. References: http://nkdep.nih.gov/resources/NKDEP_Sug gestn4Labs_0606_508.pdf http://www.kidney.org/professionals/kls/ pdf/faq_gfr.pdf Specimen Anatomical Collection Method Collection Time Receive d Time (Source) Location / / Volume Laterality Blood specimen 09/01/2010 5:15 AM 011 5:18 (specimen) EDT AM EDT Dayton Zepeda III, MD CHEMISTRY ORDERABLES Performing Organization Address City/[facility] [place] [address] CERNER MILLENNIUM (ABNORMAL) CBC (with Diff) (09/01/2010 5:15 AM EDT) P athologist Signature WBC 18.9 (H) 4.0 - 10.0 CERNER x10(3)/mcL MILLENNIUM RBC 3.64 (L) 3.93 - CERNER 5.22 MILLENNIUM x10(6)/mcL Hemoglobin 10.3 (L) 11.2 - CERNER 15.7 gm/dL MILLENNIUM Hematocrit 30.9 (L) 34.0 - CERNER 45.0 % MILLENNIUM MCV 84.9 79.0 - CERNER 94.0 fL MILLENNIUM MCH 28.3 26.6 - CERNER 32.2 pg MILLENNIUM MCHC 33.3 32.0 - CERNER 36.5 gm/dL MILLENNIUM Platelets 852 (H) 145 - 370 CERNER x10(3)/mcL MILLENNIUM RDWSD 47.5 (H) 35.0 - CERNER 46.0 fL MILLENNIUM RDWCV 15.2 (H) 10.9 - CERNER 14.4 % MILLENNIUM MPV 8.9 (L) 9.0 - 12.0 CERNER fL MILLENNIUM Specimen Anatomical Collection Method Collection Time Receive d Time (Source) Location / / Volume Laterality Blood specimen 09/01/2010 5:15 AM 011 5:18 (specimen) EDT AM EDT Dayton Zepeda III, MD HEMATOLOGY ORDERABLES Performing Organization Address City/[facility]/[place] [address] CERNER MILLENNIUM POCT GLUCOSE LAB USE ONLY (09/01/2010 4:31 AM EDT) athologist Signature POC Glucose 105 60 - 199 CERNER mg/dL MILLENNIUM Comment: Supplemental ranges: <110 mg/dL before meals <200 mg/dL all other times of the day Specimen Anatomical Collection Method Collection Time Receive d Time (Source) Location / / Volume Laterality Blood specimen 09/01/2010 4:31 AM 011 4:31 (specimen) EDT AM EDT Benson Leahy MD POINT OF CARE TEST ORDERABLE S Performing Organization Address City/[facility]/ZIP Code Phon e Number [address] CERNER MILLENNIUM POCT GLUCOSE LAB USE ONLY (09/01/2010 12:22 AM EDT) athologist Signature POC Glucose 110 60 - 199 CERNER mg/dL [facility] Comment: Supplemental ranges: <110 mg/dL before meals <200 mg/dL all other times of the day Specimen Anatomical Collection Method Collection Time Receive d Time (Source) Location / / Volume Laterality Blood specimen 09/01/2010 12:22 1 (specimen) AM EDT 12:22 AM EDT Benson Leahy MD POINT OF CARE TEST ORDERABLE S Performing Organization Address City/[facility]/[place] [address] ABDOMEN & PELVIS WITH CONTRAST (08/31/2010 9:14 PM EDT) Anatomical Region Laterality Modality Abdomen, Pelvis Computed Tomography Specimen (Source) Anatomical Collection Method Collection Time Re ceived Time Location / / Volume Laterality 08/31/2010 9:14 PM EDT Impressions 09/01/2010 4:44 PM EDT IMPRESSION: 1. Diffuse body wall edema. ?? 2. Bilateral pleural effusions, decrease d with bibasilar focal atelectasis and/or consolidation. ?? 3. No evidence of inflammatory process i n abdomen or pelvis. ?? Narrative 09/01/2010 4:[address] CHEST, ABDOMEN, AND PELVIS: CLINICAL: ??Fever, tachycardia, status p ost perc trachea; abdominal pain, fevers. ?? TECHNIQUE: ??110 cc Omnipaque-350 utiliz ed for an intravenously and orally-enhanced CT of the chest, abdomen , and pelvis. CONTRAST: ??110 cc Omnipaque-350. ?? COMPARISON: ??CT of the chest from 08/28. ?? FINDINGS: CHEST: ??Mild right and moderate left b ilateral pleural effusions, decreased from previous study. Bibasilar, left gre ater than right, focal atelectasis and/or consolidation, also decreased. No evidence for congestive failure. ?? Tracheostomy tube, tip in place. Right c entral venous catheter. No thoracic adenopathy. Extensive edema of soft tiss ues. Bilateral pleural chest tubes. ?? ABDOMEN: ??The liver, spleen, gallbladde r, and pancreas are unremarkable. The adrenal glands and kidneys are normal, a side from a subcentimeter cyst seen in the upper pole of the right kidney. No r enal collecting system obstruction. ?? No free fluid or free air. No abdominal lymphadenopathy. The bowel pattern is unremarkable, without evidence of dilata tion or wall thickening. ?? PELVIS: ??Edema of the soft tissues. Sca ttered colonic diverticula without evidence of diverticulitis. ?? Procedure Note Yaya Ha MD - 09/01/2010Form atting of this note might be different from the original. CT CHEST, ABDOMEN, AND PELVIS: CLINICAL: Fever, tachycardia, status pos t perc trachea; abdominal pain, fevers. TECHNIQUE: 110 cc Omnipaque-350 utilized for an intravenously and orally-enhanced CT of the chest, abdomen , and pelvis. CONTRAST: 110 cc Omnipaque-350. COMPARISON: CT of the chest from 1. FINDINGS: CHEST: Mild right and moderate left mariam ateral pleural effusions, decreased from previous study. Bibasilar, left gre ater than right, focal atelectasis and/or consolidation, also decreased. No evidence for congestive failure. Tracheostomy tube, tip in place. Right c entral venous catheter. No thoracic adenopathy. Extensive edema of soft tiss ues. Bilateral pleural chest tubes. ABDOMEN: The liver, spleen, gallbladder, and pancreas are unremarkable. The adrenal glands and kidneys are normal, a side from a subcentimeter cyst seen in the upper pole of the right kidney. No r enal collecting system obstruction. No free fluid or free air. No abdominal lymphadenopathy. The bowel pattern is unremarkable, without evidence of dilata tion or wall thickening. PELVIS: Edema of the soft tissues. Scatt ered colonic diverticula without evidence of diverticulitis. IMPRESSION IMPRESSION: 1. Diffuse body wall edema. 2. Bilateral pleural effusions, decrease d with bibasilar focal atelectasis and/or consolidation. 3. No evidence of inflammatory process i n abdomen or pelvis. Nicolas Rhodes MD IMG CT ORDERABLES CT chest with contrast (08/31/2010 9:14 PM EDT) Anatomical Region Laterality Modality Chest Computed Tomography Specimen (Source) Anatomical Collection Method Collection Time Re ceived Time Location / / Volume Laterality 08/31/2010 9:14 PM EDT Impressions 09/01/2010 4:44 PM EDT IMPRESSION: 1. Diffuse body wall edema. ?? 2. Bilateral pleural effusions, decrease d with bibasilar focal atelectasis and/or consolidation. ?? 3. No evidence of inflammatory process i n abdomen or pelvis. ?? Narrative 09/01/2010 4:[address] CHEST, ABDOMEN, AND PELVIS: CLINICAL: ??Fever, tachycardia, status p ost perc trachea; abdominal pain, fevers. ?? TECHNIQUE: ??110 cc Omnipaque-350 utiliz ed for an intravenously and orally-enhanced CT of the chest, abdomen , and pelvis. CONTRAST: ??110 cc Omnipaque-350. ?? COMPARISON: ??CT of the chest from 08/28. ?? FINDINGS: CHEST: ??Mild right and moderate left b ilateral pleural effusions, decreased from previous study. Bibasilar, left gre ater than right, focal atelectasis and/or consolidation, also decreased. No evidence for congestive failure. ?? Tracheostomy tube, tip in place. Right c entral venous catheter. No thoracic adenopathy. Extensive edema of soft tiss ues. Bilateral pleural chest tubes. ?? ABDOMEN: ??The liver, spleen, gallbladde r, and pancreas are unremarkable. The adrenal glands and kidneys are normal, a side from a subcentimeter cyst seen in the upper pole of the right kidney. No r enal collecting system obstruction. ?? No free fluid or free air. No abdominal lymphadenopathy. The bowel pattern is unremarkable, without evidence of dilata tion or wall thickening. ?? PELVIS: ??Edema of the soft tissues. Sca ttered colonic diverticula without evidence of diverticulitis. ?? Procedure Note Yaya Ha MD - 09/01/2010Form atting of this note might be different from the original. CT CHEST, ABDOMEN, AND PELVIS: CLINICAL: Fever, tachycardia, status pos t perc trachea; abdominal pain, fevers. TECHNIQUE: 110 cc Omnipaque-350 utilized for an intravenously and orally-enhanced CT of the chest, abdomen , and pelvis. CONTRAST: 110 cc Omnipaque-350. COMPARISON: CT of the chest from 1. FINDINGS: CHEST: Mild right and moderate left mariam ateral pleural effusions, decreased from previous study. Bibasilar, left gre ater than right, focal atelectasis and/or consolidation, also decreased. No evidence for congestive failure. Tracheostomy tube, tip in place. Right c entral venous catheter. No thoracic adenopathy. Extensive edema of soft tiss ues. Bilateral pleural chest tubes. ABDOMEN: The liver, spleen, gallbladder, and pancreas are unremarkable. The adrenal glands and kidneys are normal, a side from a subcentimeter cyst seen in the upper pole of the right kidney. No r enal collecting system obstruction. No free fluid or free air. No abdominal lymphadenopathy. The bowel pattern is unremarkable, without evidence of dilata tion or wall thickening. PELVIS: Edema of the soft tissues. Scatt ered colonic diverticula without evidence of diverticulitis. IMPRESSION IMPRESSION: 1. Diffuse body wall edema. 2. Bilateral pleural effusions, decrease d with bibasilar focal atelectasis and/or consolidation. 3. No evidence of inflammatory process i n abdomen or pelvis. Dayton Zepeda III, MD IMG CT ORDERABLES POCT GLUCOSE LAB USE ONLY (08/31/2010 8:00 PM EDT) P athologist Signature POC Glucose 153 60 - 199 CERNER mg/dL [facility] Comment: Supplemental ranges: <110 mg/dL before meals <200 mg/dL all other times of the day Specimen Anatomical Collection Method Collection Time Receive d Time (Source) Location / / Volume Laterality Blood specimen 08/31/2010 8:00 PM 011 8:00 (specimen) EDT PM EDT Benson Leahy MD POINT OF CARE TEST ORDERABLE S Performing Organization Address City/[facility]/[place] [address] CERNER MILLENNIUM POCT GLUCOSE LAB USE ONLY (08/31/2010 4:38 PM EDT) P athologist Signature POC Glucose 142 60 - 199 CERNER mg/dL [facility] Comment: Supplemental ranges: <110 mg/dL before meals <200 mg/dL all other times of the day Specimen Anatomical Collection Method Collection Time Receive d Time (Source) Location / / Volume Laterality Blood specimen 08/31/2010 4:38 PM 011 4:38 (specimen) EDT PM EDT Benson Leahy MD POINT OF CARE TEST ORDERABLE S Performing Organization Address City/[facility]/ZIP Code Phon e Number [address] CERNER MILLENNIUM Blood culture #2 (08/31/2010 3:48 PM EDT) Patholo gist Method Time Signature Blood Culture CERNER ? Patient Name: SAQIBL , DEN R ?Ordered By: KATELYN III, DAYTON F [facility] ? MR#: [id number] ?LOC: ??ICUS ? /Sex: ??1945 (64 years), ? Female ? PROCEDURE: Blood Culture ?SOURCE: Blood ? COLLECTED: 08/31/2010 15:48 ? STARTED: 08/31/2010 15:48 ? FINAL REPORT ? Final Report ? Verified:09/06/2010 15:07 ? No growth at 5 days. ? PRELIMINARY REPORT ? Preliminary Report ? Verified:09/04/2010 23:07 ? No growth at 4 days. ? Specimen Anatomical Collection Method Collection Time Receive d Time (Source) Location / / Volume Laterality Blood specimen 08/31/2010 3:48 PM 011 3:48 (specimen) EDT PM EDT Dayton Zepeda III, MD MICROBIOLOGY - BLOOD [facility] JUANCARLOS Performing Organization Address City/State/[place] [address] DAVID LIN Blood culture #1 (08/31/2010 3:48 PM EDT) [facility] Method Time Signature Blood Culture CERNER ? Patient Name: VANDERL , LASHANDAEN R ?Ordered By: KATELYN BORRERO, DAYTON LIN ? MR#: [id number] ?LOC: ??ICUS ? /Sex: ??1945 (64 years), ? Female ? PROCEDURE: Blood Culture ?SOURCE: Blood Pedi ? COLLECTED: 08/31/2010 15:48 ? STARTED: 08/31/2010 15:48 ? FINAL REPORT ? Final Report ? Verified:09/06/2010 15:07 ? No growth at 5 days. ? PRELIMINARY REPORT ? Preliminary Report ? Verified:09/04/2010 23:07 ? No growth at 4 days. ? Specimen Anatomical Collection Method Collection Time Receive d Time (Source) Location / / Volume Laterality Blood specimen 08/31/2010 3:48 PM 011 3:48 (specimen) EDT PM EDT Dayton Zepeda III, MD MICROBIOLOGY - BLOOD [facility] Performing Organization Address City/State/[place] [address] [facility] XR ABDOMEN 1 VIEW (08/31/2010 3:45 PM EDT) Anatomical Region Laterality Modality Abdomen N/A Radiographic Imaging Specimen (Source) Anatomical Collection Method Collection Time Re ceived Time Location / / Volume Laterality 08/31/2010 3:45 PM EDT Impressions 09/07/2010 1:06 PM EDT IMPRESSION: ?? No free air or obstruction. ? Film and interpretation reviewed by the attending Narrative 09/07/2010 1:06 PM EDT ABDOMINAL RADIOGRAPH, 08/31/10: CLINICAL HISTORY: ??Decubitus film not p revious done on acute abdominal series. ?? COMPARISON STUDY: ??Abdominal radiograph , 08/31/10 at 9:21 AM. TECHNIQUE: ??A single, portable left lat eral decubitus radiograph of the abdomen. FINDINGS: ??There is no free air. ??No a ir filled, dilated loops of small bowel to suggest obstruction. ??No large pleur al effusion. ??A pigtail is noted over the right lower chest and a gastrostomy tube is noted over the left upper abdomen. ?? Procedure Note Kenneth Santiago MD - 09/07/2010Formatt ing of this note might be different from the original. ABDOMINAL RADIOGRAPH, 08/31/10: CLINICAL HISTORY: Decubitus film not pre vious done on acute abdominal series. COMPARISON STUDY: Abdominal radiograph, 08/31/10 at 9:21 AM. TECHNIQUE: A single, portable left later al decubitus radiograph of the abdomen. FINDINGS: There is no free air. No air f illed, dilated loops of small bowel to suggest obstruction. No large pleural effusion. A pigtail is noted over the right lower chest and a gastrostomy tube is noted over the left upper abdomen. IMPRESSION IMPRESSION: No free air or obstruction. Film and interpretation reviewed by the attending Edilberto Trinidad MD IMG DX ORDERABLES (ABNORMAL) REFLEX LAB-A-DIFF (08/31/2010 3:25 PM EDT) [facility] Method Time Signature Neutrophils % 89.6 (H) 34.0 - CERNER 71.0 % MILLENNIUM Neutr Abs (ANC) 15.64 (H) 1.50 - CERNER 6.30 MILLENNIUM x10(3)/mc L Lymphocytes % 4.2 (L) 19.0 - CERNER 53.0 % MILLENNIUM Lymphocytes Abs 0.7 (L) 1.0 - 3.6 CERNER x10(3)/mc MILLENNIUM L Monocytes % 5.1 4.0 - CERNER 13.0 % MILLENNIUM Monocyte Abs 0.9 0.2 - 1.0 CERNER x10(3)/mc MILLENNIUM L Eosinophils % 0.7 0.0 - 7.0 CERNER % MILLENNIUM Eosinophils Abs 0.1 0.0 - 0.5 CERNER x10(3)/mc MILLENNIUM L Basophils % 0.1 0.0 - 2.0 CERNER % MILLENNIUM Basophils Abs 0.0 0.0 - 0.2 CERNER x10(3)/mc MILLENNIUM L Immature Gran % 0.30 0.00 - CERNER 0.66 % MILLENNIUM Comment: Immature granulocytes(IG's)percentage an d absolute count will include metamyelocytes, myelocytes, and promyelo cytes. Blood smears from CBCs yielding IG's will be scanned manually for concor dance. If this scan disagrees with the automated IG or if promyelocytes are not ed, a manual differential will be performed. Liss Gran Abs 0.06 (H) 0.00 - 0.05 x10(3)/mcL CER NER MILLENNIUM Specimen Anatomical Collection Method Collection Time Receive d Time (Source) Location / / Volume Laterality Blood specimen 08/31/2010 3:25 PM 011 3:40 (specimen) EDT PM EDT Dayton Zepeda III, MD HEMATOLOGY ORDERABLES Performing Organization Address City/[facility]/[place] [address] CERNER MILLENNIUM (ABNORMAL) CBC (with Diff) (08/31/2010 3:25 PM EDT) P athologist Signature WBC 17.5 (H) 4.0 - 10.0 CERNER x10(3)/mcL MILLENNIUM RBC 3.45 (L) 3.93 - CERNER 5.22 MILLENNIUM x10(6)/mcL Hemoglobin 9.7 (L) 11.2 - CERNER 15.7 gm/dL MILLENNIUM Hematocrit 29.5 (L) 34.0 - CERNER 45.0 % MILLENNIUM MCV 85.5 79.0 - CERNER 94.0 fL MILLENNIUM MCH 28.1 26.6 - CERNER 32.2 pg MILLENNIUM MCHC 32.9 32.0 - CERNER 36.5 gm/dL MILLENNIUM Platelets 819 (H) 145 - 370 CERNER x10(3)/mcL MILLENNIUM RDWSD 47.9 (H) 35.0 - CERNER 46.0 fL MILLENNIUM RDWCV 15.3 (H) 10.9 - CERNER 14.4 % MILLENNIUM MPV 9.3 9.0 - 12.0 CERNER fL MILLENNIUM Specimen Anatomical Collection Method Collection Time Receive d Time (Source) Location / / Volume Laterality Blood specimen 08/31/2010 3:25 PM 011 3:40 (specimen) EDT PM EDT Dayton Zepeda III, MD HEMATOLOGY ORDERABLES Performing Organization Address City/[facility]/[place] [address] CERNER MILLENNIUM (ABNORMAL) Urinalysis with microscopic (08/31/2010 3:17 PM EDT) Patholo gist Method Time Signature Glucose UA Negative Negative CERNER mg/dL MILLENNIUM Protein UA Negative mg/dL CERNER MILLENNIUM Bilirubin UA Negative Negative CERNER mg/dL MILLENNIUM Urobilinogen UA 2.0 (A) Normal CERNER mg/dL MILLENNIUM pH UA 6.0 5.0 - 8.0 CERNER MILLENNIUM Blood UA Negative mg/dL CERNER MILLENNIUM Ketones UA Negative mg/dL CERNER MILLENNIUM Nitrite UA Negative CERNER MILLENNIUM Leukocytes UA Small (A) Neg CERNER MILLENNIUM Appearance UA Clear Clear CERNER MILLENNIUM Spec Fitzgerald UA 1.014 1.002 - CERNER 1.030 MILLENNIUM Color UA Yellow Yellow CERNER MILLENNIUM RBC UA 2 0 - 4 /HPF [facility] WBC UA 16 (H) 0 - 5 /HPF [facility] MILLENNIUM Bacteria UA Occasional /HPF CERNER MILLENNIUM Squam Epith UA 2 <=4 /HPF [facility] MILLENNIUM Specimen Anatomical Collection Method Collection Time Receive d Time (Source) Location / / Volume Laterality Urine specimen 08/31/2010 3:17 PM 011 3:40 (specimen) EDT PM EDT Dayton Zepeda III, MD URINE ORDERABLES Performing Organization Address City/State/ZIP Code Phon e Number [address] [facility] E[facility] 12 Lead (08/31/2010 2:49 PM EDT) Component Value Ref Range Test Analysis Performed Pathologis t Method Time At Signature Ventricular rate 120 BPM MUSE SYSTEM Atrial Rate 120 BPM MUSE SYSTEM P-R Interval 166 ms MUSE SYSTEM QRS Duration 82 ms MUSE SYSTEM Q-T Interval 342 ms MUSE SYSTEM QTC Calculated 483 ms MUSE SYSTEM (Bezet) Calculated P [place] 79 degrees MUSE SYSTEM Calculated R [place] 50 degrees MUSE SYSTEM Calculated T [place] 110 degrees MUSE SYSTEM INTERPRETATION Sinus tachycardia MUSE SY STEM T wave abnormality, consider anterolateral ischemia Abnormal ECG When compared with ECG of 31-AUG-2010 04:47, No significant change was found Confirmed by MD Josee, Parminder ([id number]) on 09/01/2010 1:13:48 PM Specimen Anatomical Collection Method Collection Time Receive d Time (Source) Location / / Volume Laterality 08/31/2010 2:49 PM 1 1:13 EDT PM EDT Dayton Zepeda III, MD ECG ORDERABLES Performing Organization Address City/State/ZIP Code Phon e Number MUSE SYSTEM Urine culture Indwelling Catheter Urine (08/31/2010 2:49 PM EDT) Component Value Ref Test Analysis Performed At [facility] Range Method Time Signature Urine CERNER Culture ? Patient Name: SAQIBL , DEN R ?Ordered By: DAYTON ZEPEDA III [facility] ? MR#: [id number] ?LOC: ??ICUS ? /Sex: ??1945 (64 years), ? Female ? PROCEDURE: Urine Culture ?SOURCE: U ICa ? COLLECTED: 08/31/2010 14:49 ? STARTED: 08/31/2010 15:18 ? FINAL REPORT ? Final Report ? Verified:09/01/2010 10:46 ? Greater than 100,000 cfu/ml Enterococcus species ? Susceptibilities previously reported ? PRELIMINARY REPORT ? Preliminary Report ? Verified:09/01/2010 09:48 ? Greater than 100,000 cfu/ml Enterococcus species ? Specimen (Source) Anatomical Collection Method Collection Time Re ceived Time Location / / Volume Laterality Urine specimen 08/31/2010 2:49 08/31/2010 3:18 obtained via PM EDT PM EDT indwelling urinary catheter (specimen) Dayton Zepeda III, MD MICROBIOLOGY - GENERAL [facility] [place] Performing Organization Address City/State/ZIP Code Phon e Number [facility] [place] [address] DAVID HUNTLEYENNIUM Lower Respiratory Culture Tracheal Aspirate (08/31/2010 2:48 PM EDT) Component Value Ref Test Analysis Performed At [facility] Range Method Time Signature Lower CERNER Respiratory ? Patient Name: SAQIBL , DEN R ?Ordered By: DAYTON ZEPEDA III [facility] Culture ? MR#: [id number] ?LOC: ??ICUS ? /Sex: ??1945 (64 years), ? Female ? PROCEDURE: Lower Respiratory Culture ?SOURCE: Trach Asp ? COLLECTED: 08/31/2010 14:48 ? STARTED: 08/31/2010 15:18 ? STAINS / PREPARATIONS ? Gram Stain Report ? Verified:08/31/2010 20:37 ? Many White Blood Cells seen ? Few squamous epithelial cells seen ? Few mixed bacterial morphotypes suggestiv e of normal upper respiratory ? shama ? FINAL REPORT ? Final Report ? Verified:09/02/2010 11:31 ? Many Haemophilus species, not influenzae ? Few mixed bacterial morphotypes suggestiv e of normal upper respiratory ? shama ? PRELIMINARY REPORT ? Preliminary Report ? Verified:09/01/2010 07:33 ? Few mixed bacterial morphotypes suggestiv e of normal upper respiratory ? shama ? Specimen (Source) Anatomical Collection Method Collection Time Re ceived Time Location / / Volume Laterality Specimen from 08/31/2010 2:48 08/31/2010 3:18 trachea obtained PM EDT PM EDT by aspiration (specimen) Dayton Zepeda III, MD [facility] Performing Organization Address City/[facility]/ZIP Code Phon e Number [address] CERNER MILLENNIUM Lactic acid, plasma (08/31/2010 12:00 PM EDT) athologist Signature Lactate 0.6 0.5 - 2.2 CERNER mmol/L [facility] Specimen Anatomical Collection Method Collection Time Receive d Time (Source) Location / / Volume Laterality Blood specimen 08/31/2010 12:00 1 (specimen) PM EDT 12:55 PM EDT Dayton Zepeda III, MD CHEMISTRY ORDERABLES Performing Organization Address City/[facility] Phon e Number [address] CERNER MILLENNIUM CARDIAC ENZYMES (08/31/2010 12:00 PM EDT) athologist Signature Troponin-T <0.03 <=0.03 CERNER ng/mL [facility] Comment: 0.03 ng/mL: Represents the 99th percenti le upper reference limit for normals. >0.03 ng/mL: Elevated cardiac troponin T level indicative of myocardial damage. Diagnosis of acute, evolving or recent M I requires a typical rise and gradual fall of cTnT with at least ONE of the fo llowing: a) Ischemic symptoms b) Development of pathologic Q waves on the ECG c) ECG changes indicative of eschemia (S -T segment elevation/depression) d) Coronary artery intervention Serial bloods should be obtained for ifeoma ting on admission, at 6 to 9 hrs and again at 12 to 24 hrs if earlier samples are negative and the clinical index of suspicion is high. Reference: [Myocardial infarction redefined a consensus document of the Joint [place] an Society of Cardiology/[place] College [employer] Committee for the redefinition of myocardial infarction. Journal of the [place] College of Cardi ology 2000; 36: 959-969] CK, Total 55 0 - 160 unit/L CERNER MILLENNI UM Specimen Anatomical Collection Method Collection Time Receive d Time (Source) Location / / Volume Laterality Blood specimen 08/31/2010 12:00 1 (specimen) PM EDT 12:02 PM EDT Dayton Zepeda III, MD CHEMISTRY ORDERABLES Performing Organization Address City/[facility]/[place] [address] CERNER MILLENNIUM Lipase (08/31/2010 12:00 PM EDT) P athologist Signature Lipase 36 0 - 60 CERNER unit/L MILLENNIUM Specimen Anatomical Collection Method Collection Time Receive d Time (Source) Location / / Volume Laterality Blood specimen 08/31/2010 12:00 1 (specimen) PM EDT 12:02 PM EDT Dayton Zepeda III, MD CHEMISTRY ORDERABLES Performing Organization Address City/[facility]/[place] [address] CERNER MILLENNIUM Amylase (08/31/2010 12:00 PM EDT) P athologist Signature Amylase 39 28 - 100 CERNER unit/L MILLENNIUM Specimen Anatomical Collection Method Collection Time Receive d Time (Source) Location / / Volume Laterality Blood specimen 08/31/2010 12:00 1 (specimen) PM EDT 12:02 PM EDT Dayton Zepeda III, MD CHEMISTRY ORDERABLES Performing Organization Address City/[facility]/ZIP [facility] [place] [address] CERNER MILLENNIUM (ABNORMAL) Hepatic Function Panel (08/31/2010 12:00 PM EDT) athologist Signature Total Protein 5.5 (L) 6.4 - 8.3 CERNER gm/dL [facility] Albumin 2.3 (L) 3.2 - 5.2 CERNER gm/dL MILLENNIUM AST 21 0 - 30 CERNER unit/L MILLENNIUM ALT 19 0 - 30 CERNER unit/L [facility] Alk Phos 93 40 - 104 CERNER unit/L MILLENNIUM Total 0.3 0.2 - 1.3 CERNER Bilirubin mg/dL [facility] Bili, Direct 0.1 0.0 - 0.3 CERNER mg/dL [facility] Specimen Anatomical Collection Method Collection Time Receive d Time (Source) Location / / Volume Laterality Blood specimen 08/31/2010 12:00 1 (specimen) PM EDT 12:02 PM EDT Dayton Zepeda III, MD CHEMISTRY ORDERABLES Performing Organization Address City/[facility]/[place] [address] [facility] FolicaIUM POCT GLUCOSE LAB USE ONLY (08/31/2010 11:54 AM EDT) athologist Signature POC Glucose 113 60 - 199 CERNER mg/dL [facility] Comment: Supplemental ranges: <110 mg/dL before meals <200 mg/dL all other times of the day Specimen Anatomical Collection Method Collection Time Receive d Time (Source) Location / / Volume Laterality Blood specimen 08/31/2010 11:54 1 (specimen) AM EDT 11:54 AM EDT Benson Leahy MD POINT OF CARE TEST ORDERABLE S Performing Organization Address City/State/[place] [address] CERConvozineIUM XR ABDOMEN 1 VIEW (08/31/2010 9:22 AM EDT) Anatomical Region Laterality Modality Abdomen N/A Radiographic Imaging Specimen (Source) Anatomical Collection Method Collection Time Re ceived Time Location / / Volume Laterality 08/31/2010 9:22 AM EDT Narrative 09/01/2010 9:43 AM EDT SINGLE PORTABLE SUPINE VIEW OF THE ABDOM EN: INDICATION: ??Abdominal pain and distent ion. COMPARISON STUDY: ??08/20/10. FINDINGS: ??The nasogastric tube has bee n removed, and there has been interval placement of a PEG tube overlying the st omach. ??Bilateral pleural drains are grossly unchanged. ??There is a nonspeci fic bowel gas pattern with air seen in the rectum. ??However, on this overall l imited study the left lateral side of the abdomen has been excluded. ??Free ai r cannot be excluded on this single supine view. ??Consider additional uprig ht or decubitus views. Findings discussed with Dr. Trinidad on 08/31/10 at 1540 hours. Film and interpretation reviewed by the attending Procedure Note Deepali Swift MD - 2010 SINGLE PORTABLE SUPINE VIEW OF THE ABDOM EN: INDICATION: Abdominal pain and distentio n. COMPARISON STUDY: 08/20/10. FINDINGS: The nasogastric tube has been removed, and there has been interval placement of a PEG tube overlying the st omach. Bilateral pleural drains are grossly unchanged. There is a nonspecifi c bowel gas pattern with air seen in the rectum. However, on this overall gomez ited study the left lateral side of the abdomen has been excluded. Free air cannot be excluded on this single supine view. Consider additional upright or decubitus views. Findings discussed with Dr. Trinidad on 08/31/10 at 1540 hours. Film and interpretation reviewed by the attending Edilberto Trinidad MD IMG DX ORDERABLES Echo Transthoracic (Complete) (08/31/2010 9:19 AM EDT) P athologist Signature EF 45 [facility] Anatomical Region Laterality Modality Other Specimen (Source) Anatomical Location Collection Method / Collectio n Time Received Time / Laterality Volume 08/31/2010 Narrative 08/31/2010 10:21 AM EDT Procedure: ? Transthoracic Echocardiogram ? Patient: ? DIANE AGUIRRE R ?(Age): 1945(64) Med Rec#: ?[id number] ?Sex: ?F ? Site Loc: ?DH ?Ht / Wt: 152.4(cm)/62.7( Pt. Loc: ? ICU ? BSA: ?1.63 Study Date: ?08/31/2010 ?Pt. Type: Inpatient Tape: ?[id number] ? Referring: Dayton Richmond Global [employer] Researcher: Emilie Mondragon BA, [facility] Diagnosis: ??Abnormal EKG (794.31) CPT Code(s): ??Spectral Doppler (60129), ??Echo Full (68610), ??Color Doppler (06019), Indication(s): ??Abnormal EKG Rhythm: HR ?BP ?129/69 ?? SUMMARY: 1. This patient is tachycardic throughou t the study (estimated HR 125 bpm). 2. Global left ventricular systolic func tion is mild to moderately reduced. ??Ejection fraction is estimate d to be 45% with apical akinesis as coded below. 3. The left atrium is normal in size. 4. The mitral leaflets appear normal in structure, but there is a moderate (2 to 3+) jet of mitral regurgi tation. ?? The estimated ERO is 0.27 cm2. ?? 5. Other details as noted below. 6. IMPRESSION: As compared to the prior study from 08/28/2010, the amount of MR has increased. ??This may be due t o a change in loading conditions. Consider repeat evaluation at a slower HR or MANINDER if clinically indicated. FINDINGS: Left Ventricle ?The left ventricular chamber size is normal. ?Left ventricular wall thickness is normal. ?Global left ventricular systolic f unction is mildly reduced. Ejection fraction is estimated to be 45% . ?There are left ventricular segment al wall motion abnormalities present, as shown in the diagram below. ?Doppler assessment is consistent w ith elevated left sided filling pressure. ?The ??mid anteroseptal wall segmen t is hypokinetic. ?The ??apical septal, apical anteri or, apical lateral and apical inferior wall segments are akinetic. Left Atrium ?The left atrium is normal in size. Right Ventricle ?Right ventricular chamber size, wa ll thickness, and systolic function are within normal limits. ?There is evidence of mild pulmonar y hypertension. ?The estimated pulmonary artery sys tolic pressure is 46 mmHg. ?The estimated right atrial pressur e is 8 mmHg. Right Atrium ?The right atrium is normal in size . Aortic Valve ?The aortic valve is not well visua lized. ?There is no evidence of aortic karen ve stenosis. ?There is no evidence of aortic reg urgitation. Mitral Valve ?The mitral valve leaflets are mild ly thickened. ?There is moderate to severe (3+/4+ ) mitral regurgitation present. Tricuspid Valve ?The tricuspid valve appears normal in structure and function. ?There is trace tricuspid regurgita tion present. Pulmonic Valve ?The pulmonic valve is not well vis ualized. Pericardium ?The pericardium appears normal and there is no evidence of a pericardial effusion. Aorta ?The aortic root is normal in size. ?The ascending aorta is normal in s ize. Pulmonary Artery ?The main pulmonary artery is not w ell visualized. Venous ?The inferior vena cava appears nor mal in size. ?There is less than 50% respiratory change in the inferior vena cava dimension consistent with elevated right atrial pressure. Misc ?See remainder of report for additi onal findings. ?Two-dimensional echo, spectral Dop pler and color Doppler performed. Wall Motion: Segment Name ?Rest ? Base-Anteroseptal ?? Normal ? Base-Anterior ? Normal ? Base-Anterolateral ??Normal ? Base-Posterolateral Normal ? Base-Inferior ? Normal ? Base-Inferoseptal ?? Normal ? Mid-Anteroseptal ?Hypokinetic ? Mid-Anterior ?Normal ? Mid-Anterolateral ?? Normal ? Mid-Posterolateral ??Normal ? Mid-Inferior ?Normal ? Mid-Inferoseptal ?Normal ? Flint-Septal ? Akinetic ? Flint-Anterior ? Akinetic ? [place]-Lateral ?Akinetic ? [place]-Inferior ? Akinetic ? [place]-Tip ?Akinetic ? Chambers ?Value ?Units (Range) ? LV EF Est ? 45 ? % (55 to 80) ? LA area ? 19 ? cm2 (<21) ? RA area ? 11 ? cm2 (<18) ? Ao root ? 2.6 ?cm (2.1 to 3.6) ? Asc Ao ?2.9 ?cm (2 to 3.5) ? Mitral Valve ?Value ?Units (Range) ? E peak ?1.32 ? m/sec ? E1 ?0.1 ?m/sec ? E/E1 ?13.2 ? ratio ? Tricuspid/Pulmonic Valves ?Value ?Units (Range) ? TR peak anton ? 3.1 ?m/sec ? RAP ? 8 ?mmHg ? RVSP/PASP ? 46 ? mmHg ? This report has been electronically sign ed by: _ Theo Bean MD ? 08/31/2010 10:20:55 Images reviewed and interpretation verif ied [facility] Procedure Note Theo Bean MD - 08/31/2010Forma tting of this note might be different from the original. Procedure: Transthoracic Echocardiogram Patient: DIANE Galindo (Age): (64) Med Rec#: [id number] Sex: F [place] [facility] / Wt: 152.4(cm)/62.7( Pt. Loc: ICU BSA: 1.63 Study Date: 08/31/2010 Pt. Type: Inpatie nt Tape: [id number] Referring: Dayton Richmond Global Climate [employer] Researcher: Emilie Mondragon BA, [facility] Diagnosis: Abnormal EKG (794.31) CPT Code(s): Spectral Doppler (92240), E cho Full (81494), Color Doppler (40603), Indication(s): Abnormal EKG Rhythm: HR BP 129/69 SUMMARY: 1. This patient is tachycardic throughou t the study (estimated HR 125 bpm). 2. Global left ventricular systolic func tion is mild to moderately reduced. Ejection fraction is estimated to be 45% with apical akinesis as coded below. 3. The left atrium is normal in size. 4. The mitral leaflets appear normal in structure, but there is a moderate (2 to 3+) jet of mitral regurgi tation. The estimated ERO is 0.27 cm2. 5. Other details as noted below. 6. IMPRESSION: As compared to the prior study from 08/28/2010, the amount of MR has increased. This may be due to a change in loading conditions. Consider repeat evaluation at a slower HR or MANINDER if clinically indicated. FINDINGS: Left Ventricle The left ventricular chamber size is no rmal. Left ventricular wall thickness is norm al. Global left ventricular systolic functi on is mildly reduced. Ejection fraction is estimated to be 45% . There are left ventricular segmental wa ll motion abnormalities present, as shown in the diagram below. Doppler assessment is consistent with e levated left sided filling pressure. The mid anteroseptal wall segment is hy pokinetic. The apical septal, apical anterior, api ladonna lateral and apical inferior wall segments are akinetic. Left Atrium The left atrium is normal in size. Right Ventricle Right ventricular chamber size, wall th ickness, and systolic function are within normal limits. There is evidence of mild pulmonary hyp ertension. The estimated pulmonary artery systolic pressure is 46 mmHg. The estimated right atrial pressure is 8 mmHg. Right Atrium The right atrium is normal in size. Aortic Valve The aortic valve is not well visualized . There is no evidence of aortic valve st enosis. There is no evidence of aortic regurgit ation. Mitral Valve The mitral valve leaflets are mildly th ickened. There is moderate to severe (3+/4+) kyle ral regurgitation present. Tricuspid Valve The tricuspid valve appears normal in s tructure and function. There is trace tricuspid regurgitation present. Pulmonic Valve The pulmonic valve is not well visualiz ed. Pericardium The pericardium appears normal and ther e is no evidence of a pericardial effusion. Aorta The aortic root is normal in size. The ascending aorta is normal in size. Pulmonary Artery The main pulmonary artery is not well v isualized. Venous The inferior vena cava appears normal i n size. There is less than 50% respiratory kelly ge in the inferior vena cava dimension consistent with elevated right atrial pressure. Misc See remainder of report for additional findings. Two-dimensional echo, spectral Doppler and color Doppler performed. Wall Motion: Segment Name Rest Base-Anteroseptal Normal Base-Anterior Normal Base-Anterolateral Normal Base-Posterolateral Normal Base-Inferior Normal Base-Inferoseptal Normal Mid-Anteroseptal Hypokinetic Mid-Anterior Normal Mid-Anterolateral Normal Mid-Posterolateral Normal Mid-Inferior Normal Mid-Inferoseptal Normal Flint-Septal Akinetic Flint-Anterior Akinetic Flint-Lateral Akinetic Flint-Inferior Akinetic Flint-Tip Akinetic Chambers Value Units (Range) LV EF Est 45 % (55 to 80) LA area 19 cm2 (<21) RA area 11 cm2 (<18) Ao root 2.6 cm (2.1 to 3.6) Asc Ao 2.9 cm (2 to 3.5) Mitral Valve Value Units (Range) E peak 1.32 m/sec E1 0.1 m/sec E/E1 13.2 ratio Tricuspid/Pulmonic Valves Value Units (Range) TR peak anton 3.1 m/sec RAP 8 mmHg RVSP/PASP 46 mmHg This report has been electronically sign ed by: _ Theo Bean MD 08/31/2010 10:20: 55 Images reviewed and interpretation ver ied [facility] Card[facility] Dayton Zepeda III, MD ECHO ORDERABLES POCT GLUCOSE LAB USE ONLY (08/31/2010 8:43 AM EDT) athologist Signature POC Glucose 123 60 - 199 CERNER mg/dL [facility] Comment: Supplemental ranges: <110 mg/dL before meals <200 mg/dL all other times of the day Specimen Anatomical Collection Method Collection Time Receive d Time (Source) Location / / Volume Laterality Blood specimen 08/31/2010 8:43 AM 011 8:43 (specimen) EDT AM EDT Benson Leahy MD POINT OF CARE TEST ORDERABLE S Performing Organization Address City/State/ZIP Code Phon e Number [place] [id number] CERNER I Am Smart TechnologyENNIUM XR CERVICAL SPINE 1 VIEW (08/31/2010 7:53 AM EDT) Anatomical Region Laterality Modality C-spine N/A Radiographic Imaging Specimen (Source) Anatomical Collection Method Collection Time Re ceived Time Location / / Volume Laterality 08/31/2010 7:53 AM EDT Narrative 08/31/2010 10:03 AM EDT CERVICAL SPINE AND RIGHT ANKLE: CLINICAL HISTORY: ??Spine injury and fra cture of the foot. RIGHT FOOT: TECHNIQUE: ??Three views of the right fo ot. COMPARISON: ??Compared to 08/16/10. FINDINGS: ??Postsurgical changes of oper ative reduction internal fixation of fractures of the distal tibia and fibula . Hardware is intact. No complications. ?? CERVICAL SPINE: TECHNIQUE: ??Cross-table lateral view of the cervical spine in the lateral projection. FINDINGS: ??C1 through C5 are visible in the lateral projection, but no lower. No abnormality of C1 through C5. Procedure Note Randall Messina MD - 08/31/2010Form atting of this note might be different from the original. CERVICAL SPINE AND RIGHT ANKLE: CLINICAL HISTORY: Spine injury and fract ure of the foot. RIGHT FOOT: TECHNIQUE: Three views of the right foot . COMPARISON: Compared to 08/16/10. FINDINGS: Postsurgical changes of operat nicole reduction internal fixation of fractures of the distal tibia and fibula . Hardware is intact. No complications. CERVICAL SPINE: TECHNIQUE: Cross-table lateral view of t he cervical spine in the lateral projection. FINDINGS: C1 through C5 are visible in t he lateral projection, but no lower. No abnormality of C1 through C5. Milagro Traylor MD IMG DX ORDERABLES XR ankle minimum 3 views (08/31/2010 7:52 AM EDT) Anatomical Region Laterality Modality Ankle N/A Radiographic Imaging Specimen (Source) Anatomical Collection Method Collection Time Re ceived Time Location / / Volume Laterality 08/31/2010 7:52 AM EDT Narrative 08/31/2010 10:03 AM EDT CERVICAL SPINE AND RIGHT ANKLE: CLINICAL HISTORY: ??Spine injury and fra cture of the foot. RIGHT FOOT: TECHNIQUE: ??Three views of the right fo ot. COMPARISON: ??Compared to 08/16/10. FINDINGS: ??Postsurgical changes of oper ative reduction internal fixation of fractures of the distal tibia and fibula . Hardware is intact. No complications. ?? CERVICAL SPINE: TECHNIQUE: ??Cross-table lateral view of the cervical spine in the lateral projection. FINDINGS: ??C1 through C5 are visible in the lateral projection, but no lower. No abnormality of C1 through C5. Procedure Note Randall Messina MD - 08/31/2010Form atting of this note might be different from the original. CERVICAL SPINE AND RIGHT ANKLE: CLINICAL HISTORY: Spine injury and fract ure of the foot. RIGHT FOOT: TECHNIQUE: Three views of the right foot . COMPARISON: Compared to 08/16/10. FINDINGS: Postsurgical changes of operat nicole reduction internal fixation of fractures of the distal tibia and fibula . Hardware is intact. No complications. CERVICAL SPINE: TECHNIQUE: Cross-table lateral view of t he cervical spine in the lateral projection. FINDINGS: C1 through C5 are visible in t he lateral projection, but no lower. No abnormality of C1 through C5. Perry Lunsford MD IMG DX ORDERABLES EKG 12 Lead (08/31/2010 4:47 AM EDT) Component Value Ref Range Test Analysis Performed Pathologis t Method Time At Signature Ventricular rate 106 BPM MUSE SYSTEM Atrial Rate 106 BPM MUSE SYSTEM P-R Interval 148 ms MUSE SYSTEM QRS Duration 84 ms MUSE SYSTEM Q-T Interval 402 ms MUSE SYSTEM QTC Calculated 533 ms MUSE SYSTEM (Bezet) Calculated P [place] 77 degrees MUSE SYSTEM Calculated R [place] 50 degrees MUSE SYSTEM Calculated T [place] 167 degrees MUSE SYSTEM INTERPRETATION Sinus tachycardia MUSE SY STEM T wave abnormality, consider inferior ischemia T wave abnormality, consider anterolateral ischemia Abnormal ECG When compared with ECG of 30-AUG-2010 22:31, No significant change was found Confirmed by MD Ramon, Barron Ragland ([id number]) on 08/31/2010 12:45:39 PM Specimen Anatomical Collection Method Collection Time Receive d Time (Source) Location / / Volume Laterality 08/31/2010 4:47 AM 1 EDT 12:45 PM EDT Dayton Zepeda III, MD ECG ORDERABLES Performing Organization Address City/State/ZIP Code Phon e Number MUSE SYSTEM MAGNESIUM (08/31/2010 4:00 AM EDT) P athologist Signature Magnesium 0.82 0.69 - 1.07 CERNER mmol/L MILLENNIUM Specimen Anatomical Collection Method Collection Time Receive d Time (Source) Location / / Volume Laterality Blood specimen 08/31/2010 4:00 AM 011 4:14 (specimen) EDT AM EDT Dayton Zepeda III, MD CHEMISTRY ORDERABLES Performing Organization Address City/State/[place] [address] CERNER MILLENNIUM (ABNORMAL) REFLEX LAB-A-DIFF (08/31/2010 4:00 AM EDT) [facility] Method Time Signature Neutrophils % 84.5 (H) 34.0 - CERNER 71.0 % MILLENNIUM Neutr Abs (ANC) 10.37 (H) 1.50 - CERNER 6.30 MILLENNIUM x10(3)/mc L Lymphocytes % 8.1 (L) 19.0 - CERNER 53.0 % MILLENNIUM Lymphocytes Abs 1.0 1.0 - 3.6 CERNER x10(3)/mc MILLENNIUM L Monocytes % 5.7 4.0 - CERNER 13.0 % MILLENNIUM Monocyte Abs 0.7 0.2 - 1.0 CERNER x10(3)/mc MILLENNIUM L Eosinophils % 1.3 0.0 - 7.0 CERNER % MILLENNIUM Eosinophils Abs 0.2 0.0 - 0.5 CERNER x10(3)/mc MILLENNIUM L Basophils % 0.2 0.0 - 2.0 CERNER % MILLENNIUM Basophils Abs 0.0 0.0 - 0.2 CERNER x10(3)/mc MILLENNIUM L Immature Gran % 0.20 0.00 - CERNER 0.66 % MILLENNIUM Comment: Immature granulocytes(IG's)percentage an d absolute count will include metamyelocytes, myelocytes, and promyelo cytes. Blood smears from CBCs yielding IG's will be scanned manually for concor dance. If this scan disagrees with the automated IG or if promyelocytes are not ed, a manual differential will be performed. Liss Gran Abs 0.02 0.00 - 0.05 x10(3)/mcL CER NER MILLENNIUM Specimen Anatomical Collection Method Collection Time Receive d Time (Source) Location / / Volume Laterality Blood specimen 08/31/2010 4:00 AM 011 4:07 (specimen) EDT AM EDT Dayton Zepeda III, MD HEMATOLOGY ORDERABLES Performing Organization Address City/[facility]/[place] [address] CERNER MILLENNIUM CARDIAC ENZYMES (08/31/2010 4:00 AM EDT) athologist Signature Troponin-T <0.03 <=0.03 CERNER ng/mL [facility] Comment: 0.03 ng/mL: Represents the 99th percenti le upper reference limit for normals. >0.03 ng/mL: Elevated cardiac troponin T level indicative of myocardial damage. Diagnosis of acute, evolving or recent M I requires a typical rise and gradual fall of cTnT with at least ONE of the fo llowing: a) Ischemic symptoms b) Development of pathologic Q waves on the ECG c) ECG changes indicative of eschemia (S -T segment elevation/depression) d) Coronary artery intervention Serial bloods should be obtained for ifeoma ting on admission, at 6 to 9 hrs and again at 12 to 24 hrs if earlier samples are negative and the clinical index of suspicion is high. Reference: [Myocardial infarction redefined a consensus document of the Joint [place] Society of Cardiology/[place] [employer] Committee for the redefinition of myocardial infarction. Journal of the [place] [employer] of Cardi ology 2000; 36: 959-969] CK, Total 41 0 - 160 unit/L CERNER MILLENNI UM Specimen Anatomical Collection Method Collection Time Receive d Time (Source) Location / / Volume Laterality Blood specimen 08/31/2010 4:00 AM 011 4:07 (specimen) EDT AM EDT Dayton Zepeda III, MD CHEMISTRY ORDERABLES Performing Organization Address City/State/ZIP Code Phon e Number [place] [phone] [facility] [address] CERNER MILLENNIUM (ABNORMAL) Basic Metabolic Panel (non-fasting) (08/31/2010 4:00 AM EDT) athologist Signature Glucose Lvl 140 60 - 199 CERNER mg/dL [facility] Comment: Diabetes: >=200 mg/dL plus symp toms BUN 9 8 - 18 mg/dL CERNER MILLENNIUM Creatinine 0.31 (L) 0.70 - 1.20 mg/dL CERNER MILL ENNIUM Sodium 137 135 - 145 mmol/L CERNER ORLY NIUM Potassium 3.3 (L) 3.5 - 5.0 mmol/L CERNER ORLY NIUM Comment: Please note: ??Patients with WBC >100,00 0 may have falsely elevated Potassium levels. ??For accurate Potassium quantif ication in these patients send serum separator tube (gold top) for subsequent determinations. ??Contact the Clinical Chemistry Laboratory if there are any qu estions. Chloride 106 98 - 107 mmol/L CERNER MILLENN IUM CO2 24 22 - 31 mmol/L CERNER MILLENNI UM Anion Gap 7 5 - 15 mmol/L CERNER MILLENNIU M Calcium 7.5 (L) 8.5 - 10.5 mg/dL CERNER ORLY NIUM Estimated GFR >60 >=60 CERNER MILLENNIU M Comment: The National Kidney Disease Education Pr ogram (NKDEP) has recommended all laboratories report estimated GFR (eGFR) along with plasma creatinine measurements to assist you with recognit ion of early kidney disease. Caveats: ??Plasma creatinine should be a t steady-state (unchanged within the past week). For patient s multiply eGFR by 1.2.MDRD equation has not been validated for pediatric pat ients and is only valid for patients with age >= 18 years. At present, NKDEP does NOT recommend usi ng the MDRD equation for drug dosing purposes and pharmacists should continue to use their current dosing methods. In addition, numerical eGFR values great er than 60 ml/min/1.73 square meters should be treated as > 60, and not an ex act number due to greater inaccuracies at these higher values. Per NKDEP, they classify normal renal function as any GFR >60ml/min/1.73 square meters; chronic kidney disease wh en GFR <60, and renal failure when GFR <15. ??This calculation may not be valid for patients with atypical muscle mass (very lean or obese), acute renal failur e, and in patients with diabetic kidney disease. References: http://nkdep.nih.gov/resources/NKDEP_Sug gestn4Labs_0606_508.pdf http://www.kidney.org/professionals/kls/ pdf/faq_gfr.pdf Specimen Anatomical Collection Method Collection Time Receive d Time (Source) Location / / Volume Laterality Blood specimen 08/31/2010 4:00 AM 011 4:07 (specimen) EDT AM EDT Dayton Zepeda III, MD CHEMISTRY ORDERABLES Performing Organization Address City/[facility] [place] [address] CERNER MILLENNIUM (ABNORMAL) CBC (with Diff) (08/31/2010 4:00 AM EDT) athologist Signature WBC 12.3 (H) 4.0 - 10.0 CERNER x10(3)/mcL MILLENNIUM RBC 3.00 (L) 3.93 - CERNER 5.22 MILLENNIUM x10(6)/mcL Hemoglobin 8.5 (L) 11.2 - CERNER 15.7 gm/dL MILLENNIUM Hematocrit 26.0 (L) 34.0 - CERNER 45.0 % MILLENNIUM MCV 86.7 79.0 - CERNER 94.0 fL MILLENNIUM MCH 28.3 26.6 - CERNER 32.2 pg MILLENNIUM MCHC 32.7 32.0 - CERNER 36.5 gm/dL MILLENNIUM Platelets 606 (H) 145 - 370 CERNER x10(3)/mcL MILLENNIUM RDWSD 49.1 (H) 35.0 - CERNER 46.0 fL MILLENNIUM RDWCV 15.4 (H) 10.9 - CERNER 14.4 % MILLENNIUM MPV 9.2 9.0 - 12.0 CERNER fL MILLENNIUM Specimen Anatomical Collection Method Collection Time Receive d Time (Source) Location / / Volume Laterality Blood specimen 08/31/2010 4:00 AM 011 4:07 (specimen) EDT AM EDT Dayton Zepeda III, MD HEMATOLOGY ORDERABLES Performing Organization Address City/[facility]/ZIP [place] [address] CERNER MILLENNIUM POCT GLUCOSE LAB USE ONLY (08/31/2010 3:59 AM EDT) athologist Signature POC Glucose 99 60 - 199 CERNER mg/dL [facility] Comment: Supplemental ranges: <110 mg/dL before meals <200 mg/dL all other times of the day Specimen Anatomical Collection Method Collection Time Receive d Time (Source) Location / / Volume Laterality Blood specimen 08/31/2010 3:59 AM 011 3:59 (specimen) EDT AM EDT Benson Leahy MD POINT OF CARE TEST ORDERABLE S Performing Organization Address City/State/ZIP Code Phon e Number [address] CERNER MILLENNIUM Creatinine, urine, random (08/31/2010 12:53 AM EDT) P athologist Signature U Creatinine 102 mg/dL CERNER MILLENNIUM Specimen Anatomical Collection Method Collection Time Receive d Time (Source) Location / / Volume Laterality Urine specimen 08/31/2010 12:53 1 1:09 (specimen) AM EDT AM EDT Dayton Zepeda III, MD URINE ORDERABLES Performing Organization Address City/[facility]/[place] [address] CERNER MILLENNIUM Electrolytes, urine, random (08/31/2010 12:53 AM EDT) P athologist Signature U Sodium 65 mmol/L CERNER MILLENNIUM U Potassium 39 mmol/L CERNER MILLENNIUM U Chloride 91 mmol/L CERNER MILLENNIUM Specimen Anatomical Collection Method Collection Time Receive d Time (Source) Location / / Volume Laterality Urine specimen 08/31/2010 12:53 1 1:09 (specimen) AM EDT AM EDT Dayton Zepeda III, MD URINE ORDERABLES Performing Organization Address City/[facility]/ZIP Code Phon e Number [address] CERNER MILLENNIUM POCT GLUCOSE LAB USE ONLY (08/31/2010 12:11 AM EDT) P athologist Signature POC Glucose 133 60 - 199 CERNER mg/dL MILLENNIUM Comment: Supplemental ranges: <110 mg/dL before meals <200 mg/dL all other times of the day Specimen Anatomical Collection Method Collection Time Receive d Time (Source) Location / / Volume Laterality Blood specimen 08/31/2010 12:11 1 (specimen) AM EDT 12:11 AM EDT Benson Leahy MD POINT OF CARE TEST ORDERABLE S Performing Organization Address City/State/ZIP Code Phon e Number [place] [phone] CERNER FolicaIUM EKG 12 Lead (08/30/2010 10:31 PM EDT) Component Value Ref Range Test Analysis Performed Pathologis t Method Time At Signature Ventricular rate 98 BPM MUSE SYSTEM Atrial Rate 98 BPM MUSE SYSTEM P-R Interval 154 ms MUSE SYSTEM QRS Duration 76 ms MUSE SYSTEM Q-T Interval 412 ms MUSE SYSTEM QTC Calculated 525 ms MUSE SYSTEM (Bezet) Calculated P [place] 76 degrees MUSE SYSTEM Calculated R [place] 58 degrees MUSE SYSTEM Calculated T [place] 132 degrees MUSE SYSTEM INTERPRETATION Normal sinus rhythm MUSE SYSTEM T wave abnormality, consider anterolateral ischemia Prolonged QT Abnormal ECG When compared with ECG of 30-AUG-2010 20:06, (unconfirmed) Serial changes of Anterolateral infarct Confirmed by MD Ramon, Barron Ragland ([id number]) on 08/31/2010 7:22:12 A M Specimen Anatomical Collection Method Collection Time Receive d Time (Source) Location / / Volume Laterality 08/30/2010 10:31 08/31/2010 7:22 PM EDT AM EDT Dayton Zepeda III, MD ECG ORDERABLES Performing Organization Address City/State/ZIP Code Phon e Number MUSE SYSTEM Cardiac Enzymes (08/30/2010 9:00 PM EDT) P athologist Signature Troponin-T <0.03 <=0.03 CERNER ng/mL [facility] Comment: 0.03 ng/mL: Represents the 99th percenti le upper reference limit for normals. >0.03 ng/mL: Elevated cardiac troponin T level indicative of myocardial damage. Diagnosis of acute, evolving or recent M I requires a typical rise and gradual fall of cTnT with at least ONE of the fo llowing: a) Ischemic symptoms b) Development of pathologic Q waves on the ECG c) ECG changes indicative of eschemia (S -T segment elevation/depression) d) Coronary artery intervention Serial bloods should be obtained for ifeoma ting on admission, at 6 to 9 hrs and again at 12 to 24 hrs if earlier samples are negative and the clinical index of suspicion is high. Reference: [Myocardial infarction redefined a consensus document of the [employer] [place] Society of Cardiology/[place] [employer]iology Committee for the redefinition of myocardial infarction. Journal of the [place] College of Cardi ology 2000; 36: 959-969] CK, Total 66 0 - 160 unit/L CERNER FolicaI UM Specimen Anatomical Collection Method Collection Time Receive d Time (Source) Location / / Volume Laterality Blood specimen 08/30/2010 9:00 PM 011 9:06 (specimen) EDT PM EDT Dayton Zepeda III, MD CHEMISTRY ORDERABLES Performing Organization Address City/State/[place] [address] [facility] EKG 12 Lead (08/30/2010 8:06 PM EDT) Component Value Ref Range Test Analysis Performed Pathologis t Method Time At Signature Ventricular rate 121 BPM MUSE SYSTEM Atrial Rate 242 BPM MUSE SYSTEM QRS Duration 76 ms MUSE SYSTEM Q-T Interval 350 ms MUSE SYSTEM QTC Calculated 497 ms MUSE SYSTEM (Bezet) Calculated P [place] 89 degrees MUSE SYSTEM Calculated R [place] 76 degrees MUSE SYSTEM Calculated T [place] -105 degrees MUSE SYSTEM INTERPRETATION Sinus tachycardia MUSE SY STEM Anterolateral injury pattern Abnormal ECG When compared with ECG of 27-AUG-2010 09:46, Vent. rate has increased T wave inversion now evident in Anterolateral leads Anterolateral infarct Confirmed by MD Navarro Peter A ([id number]) on 08/31/2010 7:20:00 A M Specimen Anatomical Collection Method Collection Time Receive d Time (Source) Location / / Volume Laterality 08/30/2010 8:06 PM 7:20 EDT AM EDT Dayton Zepeda III, MD ECG ORDERABLES Performing Organization Address City/State/ZIP Code Phon e Number MUSE SYSTEM POCT GLUCOSE LAB USE ONLY (08/30/2010 7:15 PM EDT) P athologist Signature POC Glucose 111 60 - 199 CERNER mg/dL [facility] Comment: Supplemental ranges: <110 mg/dL before meals <200 mg/dL all other times of the day Specimen Anatomical Collection Method Collection Time Receive d Time (Source) Location / / Volume Laterality Blood specimen 08/30/2010 7:15 PM 011 7:15 (specimen) EDT PM EDT Benson Leahy MD POINT OF CARE TEST ORDERABLE S Performing Organization Address City/State/ZIP Code Phon e Number [address] CERNER MILLENNIUM POCT GLUCOSE LAB USE ONLY (08/30/2010 4:08 PM EDT) athologist Signature POC Glucose 140 60 - 199 CERNER mg/dL [facility] Comment: Supplemental ranges: <110 mg/dL before meals <200 mg/dL all other times of the day Specimen Anatomical Collection Method Collection Time Receive d Time (Source) Location / / Volume Laterality Blood specimen 08/30/2010 4:08 PM 011 4:08 (specimen) EDT PM EDT Benson Leahy MD POINT OF CARE TEST ORDERABLE S Performing Organization Address City/[facility]/ZIP Code Phon e Number [address] DAVID HUNTLEYENNIUM CENTRAL LINE (08/30/2010 1:19 PM EDT) Narrative 08/30/2010 1:19 PM EDT Central Line Placement Procedure Note Indication for Central Line Insertion: New Catheter: ??volume replacement, acce ss, monitoring and medication administration This insertion was not to replace a malf unctioning central line. This insertion was not due to a suspecte d central line associated infection. Location of Procedure: ICU Hand Hygiene: The elastic tape inserter did perform hand hygiene pr ior to central line insertion. Procedure Technique: Skin was prepped with chlorhexidine. Skin preparation agent was completely dr y at the time of first skin puncture. The following barrier precautions were u sed:large sterile drape, maske/eye shield, large sterile gown, st erile gloves and cap. 3 ml of 1% Lidocaine was used for skin w heal. Ultrasound was not used for guidance. Procedure Details: An 18 Ga. X 2.5 inch Introducer needle w as placed in vein after blood return identified. Guided by a 0.0 32 inch diameter guide wire, a 7 Fr., 3 lumen, 20 cm catheter w as inserted using the Seldinger Technique. Additional Catheter Details: Catheter type: antimicrobial coated. Catheter was a non tunneled. Insertion site was left, subclavian. There was 1 attempt(s). The catheter was sutured to the skin at 1 cm. The central line was placed over a guide wire. Sterile Dressing: CHG integrated tegaderm Findings: Patient tolerated procedure well., Blood returned appropriately. Complications: No Complications. Post Procedure: Chest x-ray ordered. Procedure Comments: None Procedure Note Gualberto Calvillo MD - 08/16/2010 2:10 P M EDT Central Line Placement Procedure Note Indication for Central Line Insertion: New Catheter: volume replacement, access , monitoring and medication administration This insertion was not to replace a malf unctioning central line. This insertion was not due to a suspecte d central line associated infection. Location of Procedure: ICU Hand Hygiene: The elastic tape inserter did perform hand hygiene pr ior to central line insertion. Procedure Technique: Skin was prepped with chlorhexidine. Skin preparation agent was completely dr y at the time of first skin puncture. The following barrier precautions were u sed:large sterile drape, maske/eye shield, large sterile gown, sterile gloves and cap. 3 ml of 1% Lidocaine was used for skin w heal. Ultrasound was not used for guidance. Procedure Details: An 18 Ga. X 2.5 inch Introducer needle w as placed in vein after blood return identified. Guided by a 0.032 inch diameter guide wire, a 7 Fr., 3 lumen, 20 cm catheter was inserted using the Seldinger Technique. Additional Catheter Details: Catheter type: antimicrobial coated. Catheter was a non tunneled. Insertion site was left, subclavian. There was 1 attempt(s). The catheter was sutured to the skin at 1 cm. The central line was placed over a guide wire. Sterile Dressing: CHG integrated tegaderm Findings: Patient tolerated procedure well., Blood returned appropriately. Complications: No Complications. Post Procedure: Chest x-ray ordered. Procedure Comments: None Ivett Petit MD PROCEDURE/MINOR SURGICAL ORD ERABLES POCT GLUCOSE LAB USE ONLY (08/30/2010 12:01 PM EDT) P athologist Signature POC Glucose 147 60 - 199 CERNER mg/dL [facility] Comment: Supplemental ranges: <110 mg/dL before meals <200 mg/dL all other times of the day Specimen Anatomical Collection Method Collection Time Receive d Time (Source) Location / / Volume Laterality Blood specimen 08/30/2010 12:01 1 (specimen) PM EDT 12:01 PM EDT Benson Leahy MD POINT OF CARE TEST ORDERABLE S Performing Organization Address City/[facility]/ZIP Code Phon e Number [address] CERNER FolicaIUM POCT GLUCOSE LAB USE ONLY (08/30/2010 7:31 AM EDT) athologist Signature POC Glucose 132 60 - 199 CERNER mg/dL [facility] Comment: Supplemental ranges: <110 mg/dL before meals <200 mg/dL all other times of the day Specimen Anatomical Collection Method Collection Time Receive d Time (Source) Location / / Volume Laterality Blood specimen 08/30/2010 7:31 AM 011 7:31 (specimen) EDT AM EDT Benson Leahy MD POINT OF CARE TEST ORDERABLE S Performing Organization Address City/[facility]/ZIP Code Phon e Number [address] CERConvozineIUM XR cervical spine 1 view (08/30/2010 6:25 AM EDT) Anatomical Region Laterality Modality C-spine N/A Radiographic Imaging Specimen (Source) Anatomical Collection Method Collection Time Re ceived Time Location / / Volume Laterality 08/30/2010 6:25 AM EDT Impressions 08/31/2010 7:46 AM EDT IMPRESSION: Alignment from C1 to C6 appears anatomi c. Known C7 facet fractures not visualized. Degenerative changes. Narrative 08/31/2010 7:46 AM EDT CERVICAL SPINE, LATERAL ONLY: CLINICAL HISTORY: ??Two-week status post C7 fracture. Question to answered interval change. According to technologi st notes, the patient in cervical collar with spinal precautions. ?? TECHNIQUE: ??Portable crosstable in ICU at 0610 hours labeled in collar. ?? FINDINGS: ??Due to positioning and body habitus, exam is limited as C7 is not included on the film. Overlying collar s omewhat obscures bone detail. Vertebral body heights in C1 to C6 appear intact. Disc space narrowing at C5-C6. Degenerative facet disease is noted thro ughout the cervical spine. The prevertebral soft tissues are unremarkab le. The alignment is anatomic. Tracheostomy tube is in position. Small metallic devices overlie the skull. ?? Procedure Note Faby Cruz MD - 1 CERVICAL SPINE, LATERAL ONLY: CLINICAL HISTORY: Two-week status post C 7 fracture. Question to answered interval change. According to technologi st notes, the patient in cervical collar with spinal precautions. TECHNIQUE: Portable crosstable in ICU at 0610 hours labeled in collar. FINDINGS: Due to positioning and body woods bitus, exam is limited as C7 is not included on the film. Overlying collar s omewhat obscures bone detail. Vertebral body heights in C1 to C6 appear intact. Disc space narrowing at C5-C6. Degenerative facet disease is noted thro ughout the cervical spine. The prevertebral soft tissues are unremarkab le. The alignment is anatomic. Tracheostomy tube is in position. Small metallic devices overlie the skull. IMPRESSION IMPRESSION: Alignment from C1 to C6 appears anatomi c. Known C7 facet fractures not visualized. Degenerative changes. Dayton Zepeda III, MD IMG DX ORDERABLES Blood culture (08/30/2010 5:15 AM EDT) [facility] Method Time Signature Blood Culture CERNER ? Patient Name: VINOD , DEN Galindo ?Ordered By: DAYTON ZEPEDA III MILLENNIUM ? MR#: [id number] ?LOC: ??ICUS ? /Sex: ??1945 (64 years), ? Female ? PROCEDURE: Blood Culture ?SOURCE: Blood ? COLLECTED: 08/30/2010 05:15 ? STARTED: 08/30/2010 05:15 ? FINAL REPORT ? Final Report ? Verified:09/04/2010 15:07 ? No growth at 5 days. ? PRELIMINARY REPORT ? Preliminary Report ? Verified:09/03/2010 07:06 ? No growth at 4 days. ? Specimen Anatomical Collection Method Collection Time Receive d Time (Source) Location / / Volume Laterality Blood specimen 08/30/2010 5:15 AM 011 5:15 (specimen) EDT AM EDT Dayton Zepeda III, MD MICROBIOLOGY - BLOOD [facility] Performing Organization Address City/State/[place] [address] DAVID YUKOANABELLAIUM Blood culture (08/30/2010 4:42 AM EDT) [facility] Method Time Signature Blood Culture CERNER ? Patient Name: VINOD , DEN R ?Ordered By: DAYTON ZEPEDA III ? MR#: [id number] ?LOC: ??ICUS ? /Sex: ??1945 (64 years), ? Female ? PROCEDURE: Blood Culture ?SOURCE: Blood ? COLLECTED: 08/30/2010 04:42 ? STARTED: 08/30/2010 04:42 ? FINAL REPORT ? Final Report ? Verified:09/04/2010 15:07 ? No growth at 5 days. ? PRELIMINARY REPORT ? Preliminary Report ? Verified:09/03/2010 07:06 ? No growth at 4 days. ? Specimen Anatomical Collection Method Collection Time Receive d Time (Source) Location / / Volume Laterality Blood specimen 08/30/2010 4:42 AM 011 4:42 (specimen) EDT AM EDT Dayton Zepeda III, MD MICROBIOLOGY - BLOOD [facility] Performing Organization Address City/State/[place] [address] DAVID [facility] Urine culture Urine (08/30/2010 4:30 AM EDT) Component Value Ref Test Analysis Performed At [facility] Range Method Time Signature Urine Culture [facility] ? Patient Name: VANDERL , DEN R ?Ordered By: DAYTON ZEPEDA III [facility] ? MR#: [id number] ?LOC: ??ICUS ? /Sex: ??1945 (64 years), ? Female ? PROCEDURE: Urine Culture ?SOURCE: U [facility] ? COLLECTED: 08/30/2010 04:30 ? STARTED: 08/30/2010 07:33 ? AMENDED REPORT ? Amended Final Report ? Verified:09/01/2010 10:45 ? Note: This is a corrected report ? 50,000-99,000 cfu/ml Enterococcus species ? previous report coagulase negative staph ? FINAL REPORT ? Final Report ? Verified:08/31/2010 07:40 ? 10,000-49,000 cfu/ml Coagulase negative Staphylococcu s species ? Susceptibility testin g not routinely performed for Staphylococcus species ? and other Gram Positive ? organisms from urine. ? SUSCEPTIBILITY RESULTS ? Enterococcus species ?BERENICE Interp ? Ampicillin ? S ? Ciprofloxacin ?S ? Nitrofurantoin ? S ? Penicillin ? S ? Tetracycline ? R ? Vancomycin ? S ? S=Susceptible ??I=Intermediate ??R=Resistant ??NA=Not Applicable ? DDS=Dose dependent-susceptible ??NS=Non-susceptible ? Specimen (Source) Anatomical Collection Method Collection Time Re ceived Time Location / / Volume Laterality Urine specimen 08/30/2010 4:30 08/30/2010 7:33 obtained via AM EDT AM EDT indwelling urinary catheter (specimen) Dayton Zepeda III, MD MICROBIOLOGY - GENERAL [facility] Performing Organization Address City/[facility]/ZIP [place] [address] CERNER MILLENNIUM (ABNORMAL) Urinalysis with microscopic (08/30/2010 4:30 AM EDT) [facility] Method Time Signature Glucose UA Negative Negative CERNER mg/dL MILLENNIUM Protein UA Trace (A) Neg mg/dL CERNER MILLENNIUM Bilirubin UA Negative Negative CERNER mg/dL MILLENNIUM Urobilinogen UA Normal mg/dL CERNER MILLENNIUM pH UA 5.5 5.0 - 8.0 CERNER MILLENNIUM Blood UA Negative mg/dL CERNER MILLENNIUM Ketones UA 10 (A) Neg mg/dL CERNER MILLENNIUM Nitrite UA Negative CERNER MILLENNIUM Leukocytes UA Negative mcL CERNER MILLENNIUM Appearance UA Clear Clear CERNER MILLENNIUM Spec Fitzgerald UA 1.016 1.002 - CERNER 1.030 MILLENNIUM Color UA Yellow Yellow CERNER MILLENNIUM RBC UA <1 0 - 4 /HPF CERNER MILLENNIUM WBC UA 3 0 - 5 /HPF CERNER MILLENNIUM Bacteria UA Occasional /HPF CERNER MILLENNIUM Squam Epith UA 1 <=4 /HPF CERNER MILLENNIUM Specimen Anatomical Collection Method Collection Time Receive d Time (Source) Location / / Volume Laterality Urine specimen 08/30/2010 4:30 AM 011 4:59 (specimen) EDT AM EDT Dayton Zepeda III, MD URINE ORDERABLES Performing Organization Address City/[facility]/ZIP [place] [address] CERNER MILLENNIUM (ABNORMAL) REFLEX LAB-A-DIFF (08/30/2010 3:30 AM EDT) [facility] Method Time Signature Neutrophils % 89.6 (H) 34.0 - CERNER 71.0 % MILLENNIUM Neutr Abs (ANC) 12.68 (H) 1.50 - CERNER 6.30 MILLENNIUM x10(3)/mc L Lymphocytes % 4.0 (L) 19.0 - CERNER 53.0 % MILLENNIUM Lymphocytes Abs 0.6 (L) 1.0 - 3.6 CERNER x10(3)/mc MILLENNIUM L Monocytes % 4.8 4.0 - CERNER 13.0 % MILLENNIUM Monocyte Abs 0.7 0.2 - 1.0 CERNER x10(3)/mc MILLENNIUM L Eosinophils % 1.1 0.0 - 7.0 CERNER % MILLENNIUM Eosinophils Abs 0.2 0.0 - 0.5 CERNER x10(3)/mc MILLENNIUM L Basophils % 0.1 0.0 - 2.0 CERNER % MILLENNIUM Basophils Abs 0.0 0.0 - 0.2 CERNER x10(3)/mc MILLENNIUM L Immature Gran % 0.40 0.00 - CERNER 0.66 % MILLENNIUM Comment: Immature granulocytes(IG's)percentage an d absolute count will include metamyelocytes, myelocytes, and promyelo cytes. Blood smears from CBCs yielding IG's will be scanned manually for concor dance. If this scan disagrees with the automated IG or if promyelocytes are not ed, a manual differential will be performed. Liss Gran Abs 0.05 0.00 - 0.05 x10(3)/mcL CER NER MILLENNIUM Specimen Anatomical Collection Method Collection Time Receive d Time (Source) Location / / Volume Laterality Blood specimen 08/30/2010 3:30 AM 011 3:44 (specimen) EDT AM EDT Benson Leahy MD HEMATOLOGY ORDERABLES Performing Organization Address City/State/[place] [address] CERNER MILLENNIUM (ABNORMAL) CBC (with Diff) (08/30/2010 3:30 AM EDT) P athologist Signature WBC 14.2 (H) 4.0 - 10.0 CERNER x10(3)/mcL MILLENNIUM RBC 3.63 (L) 3.93 - CERNER 5.22 MILLENNIUM x10(6)/mcL Hemoglobin 10.1 (L) 11.2 - CERNER 15.7 gm/dL MILLENNIUM Hematocrit 31.3 (L) 34.0 - CERNER 45.0 % MILLENNIUM MCV 86.2 79.0 - CERNER 94.0 fL MILLENNIUM MCH 27.8 26.6 - CERNER 32.2 pg MILLENNIUM MCHC 32.3 32.0 - CERNER 36.5 gm/dL MILLENNIUM Platelets 768 (H) 145 - 370 CERNER x10(3)/mcL MILLENNIUM RDWSD 47.9 (H) 35.0 - CERNER 46.0 fL MILLENNIUM RDWCV 15.2 (H) 10.9 - CERNER 14.4 % MILLENNIUM MPV 9.1 9.0 - 12.0 CERNER fL MILLENNIUM Specimen Anatomical Collection Method Collection Time Receive d Time (Source) Location / / Volume Laterality Blood specimen 08/30/2010 3:30 AM 011 3:44 (specimen) EDT AM EDT Benson Leahy MD HEMATOLOGY ORDERABLES Performing Organization Address City/State/[place] [address] CERNER MILLENNIUM (ABNORMAL) Basic Metabolic Panel (non-fasting) (08/30/2010 3:30 AM EDT) athologist Signature Glucose Lvl 124 60 - 199 CERNER mg/dL MILLENNIUM Comment: Diabetes: >=200 mg/dL plus symp toms BUN 8 8 - 18 mg/dL CERNER MILLENNIUM Creatinine 0.38 (L) 0.70 - 1.20 mg/dL CERNER MILL ENNIUM Sodium 138 135 - 145 mmol/L CERNER ORLY NIUM Potassium 3.4 (L) 3.5 - 5.0 mmol/L CERNER ORLY NIUM Comment: Please note: ??Patients with WBC >100,00 0 may have falsely elevated Potassium levels. ??For accurate Potassium quantif ication in these patients send serum separator tube (gold top) for subsequent determinations. ??Contact the Clinical Chemistry Laboratory if there are any qu estions. Chloride 103 98 - 107 mmol/L CERNER MILLENN IUM CO2 25 22 - 31 mmol/L CERNER MILLENNI UM Anion Gap 10 5 - 15 mmol/L CERNER MILLENNIU M Calcium 8.1 (L) 8.5 - 10.5 mg/dL CERNER ORLY NIUM Estimated GFR >60 >=60 CERNER MILLENNIU M Comment: The National Kidney Disease Education Pr ogram (NKDEP) has recommended all laboratories report estimated GFR (eGFR) along with plasma creatinine measurements to assist you with recognit ion of early kidney disease. Caveats: ??Plasma creatinine should be a t steady-state (unchanged within the past week). For patient s multiply eGFR by 1.2.MDRD equation has not been validated for pediatric pat ients and is only valid for patients with age >= 18 years. At present, NKDEP does NOT recommend usi ng the MDRD equation for drug dosing purposes and pharmacists should continue to use their current dosing methods. In addition, numerical eGFR values great er than 60 ml/min/1.73 square meters should be treated as > 60, and not an ex act number due to greater inaccuracies at these higher values. Per NKDEP, they classify normal renal function as any GFR >60ml/min/1.73 square meters; chronic kidney disease wh en GFR <60, and renal failure when GFR <15. ??This calculation may not be valid for patients with atypical muscle mass (very lean or obese), acute renal failur e, and in patients with diabetic kidney disease. References: http://nkdep.nih.gov/resources/NKDEP_Sug gestn4Labs_0606_508.pdf http://www.kidney.org/professionals/kls/ pdf/faq_gfr.pdf Specimen Anatomical Collection Method Collection Time Receive d Time (Source) Location / / Volume Laterality Blood specimen 08/30/2010 3:30 AM 011 3:44 (specimen) EDT AM EDT Benson Leahy MD CHEMISTRY ORDERABLES Performing Organization Address City/State/[place] [address] [facility] PO[facility] GLU[facility] LAB USE ONLY (08/30/2010 12:26 AM EDT) P athologist Signature POC Glucose 115 60 - 199 EMILEENER mg/dL [facility] Comment: Supplemental ranges: <110 mg/dL before meals <200 mg/dL all other times of the day Specimen Anatomical Collection Method Collection Time Receive d Time (Source) Location / / Volume Laterality Blood specimen 08/30/2010 12:26 1 (specimen) AM EDT 12:26 AM EDT Benson Leahy MD POINT OF CARE TEST ORDERABLE S Performing Organization Address City/State/[place] [address] CERNER MILLENNIUM POCT GLUCOSE LAB USE ONLY (08/29/2010 8:55 PM EDT) P athologist Signature POC Glucose 112 60 - 199 CERNER mg/dL [facility] Comment: Supplemental ranges: <110 mg/dL before meals <200 mg/dL all other times of the day Specimen Anatomical Collection Method Collection Time Receive d Time (Source) Location / / Volume Laterality Blood specimen 08/29/2010 8:55 PM 011 8:55 (specimen) EDT PM EDT Benson Leahy MD POINT OF CARE TEST ORDERABLE S Performing Organization Address City/[facility]/ZIP Code Phon e Number [address] CERNER FolicaIUM XR CHEST PA OR AP- 1 VIEW (08/29/2010 5:38 PM EDT) Anatomical Region Laterality Modality Chest N/A Radiographic Imaging Specimen (Source) Anatomical Collection Method Collection Time Re ceived Time Location / / Volume Laterality 08/29/2010 5:38 PM EDT Impressions 08/30/2010 3:28 PM EDT IMPRESSION: ?? Tracheostomy tube tip in appropriate loc ation. ??Otherwise stable chest. ?? Film and interpretation reviewed by the attending Narrative 08/30/2010 3:28 PM EDT CHEST RADIOGRAPH, 08/29/10: ?? CLINICAL HISTORY: ??History of trauma. ? ?Status post tracheostomy. COMPARISON STUDY: ??Chest radiograph, , 08/28/10, 08/16/10; chest CT, 08/28/10. ?? TECHNIQUE: ??Portable AP 30-degree uprig ht radiograph of the chest at 1737. ?? FINDINGS: ??The endotracheal tube and na sogastric tube have been removed. ??There is a new tracheostomy tube with the tip at the thoracic inlet. ??The right-sided PICC line is stable with the tip in the SVC. ??Bilateral pigtail catheters are likely stable given differences in patie nt rotation overlying the lower hemithoraces. ??The lungs are well expan ded and there is minimal residual patchy basilar opacity, likely representing ate lectasis. ?? Procedure Note Dulce Barber MD - 08/30/2010Formattin g of this note might be different from the original. CHEST RADIOGRAPH, 08/29/10: CLINICAL HISTORY: History of trauma. Sta tus post tracheostomy. COMPARISON STUDY: Chest radiograph, 08/04, 08/28/10, 08/16/10; chest CT, 08/28/10. TECHNIQUE: Portable AP 30-degree upright radiograph of the chest at 1737. FINDINGS: The endotracheal tube and naso gastric tube have been removed. There is a new tracheostomy tube with the tip at the thoracic inlet. The right-sided PICC line is stable with the tip in the SVC. Bilateral pigtail catheters are likely stable given differences in patie nt rotation overlying the lower hemithoraces. The lungs are well expande d and there is minimal residual patchy basilar opacity, likely representing ate lectasis. IMPRESSION IMPRESSION: Tracheostomy tube tip in appropriate loc ation. Otherwise stable chest. Film and interpretation reviewed by the attending Barron Gutierrez MD IMG DX ORDERABLES BRONCHOSCOPY,DIAGNOSTIC PRFM (08/29/2010 5:33 PM EDT) Narrative José Junior MD - 08/29/2010 5:33 PM EDT JOSÉ JUNIOR ? 08/29/2010 ? 5:33:36 PM Critical Care Attending Procedure - flexible bronchoscopy via en dotracheal tube in support of percutaneous tracheostomy [facility] Physicians - Dr. Nicolas Rhodes (fellow), Dr. José Junior (attending) Sedation - propofol 50 mcg/kg/min, midaz olam 18mg IVP (divided doses), fentanyl 600 mcg/hour Description - Endotracheal tube pulled b ack to 13 cm, ventilation was ensured. ??Fiberoptic scope was intr oduced into the airway via the endotracheal tube while surgical pro cedure performed. ??After uncomplicated percutaneous tracheostomy, the trachea was again inspected and there was no evidence of b leeding or mucus collection. ??Hemodynamically-stable thr oughout, oxygenation was nominal. Procedure Note José Junior MD - 08/29/2010 5:30 PM EDT Critical Care Attending Procedure - flexible bronchoscopy via en dotracheal tube in support of percutaneous tracheostomy placement Physicians - Dr. Nicolas Rhodes (fellow), Dr. José Junior (attending) Sedation - propofol 50 mcg/kg/min, midaz olam 18mg IVP (divided doses), fentanyl 600 mcg/hour Description - Endotracheal tube pulled b ack to 13 cm, ventilation was ensured. Fiberoptic scope was introduced into the airway via the endotracheal tube while surgical procedure performed. After uncomplicated percutaneous tracheostomy, the trachea w as again inspected and there was no evidence of bleeding or mucus collection. Hemodynamically-stable throughout, oxygenation was nominal. José Junior MD PROCEDURE/MINOR SURGICAL ORD ERABLES POCT GLUCOSE LAB USE ONLY (08/29/2010 3:56 PM EDT) athologist Signature POC Glucose 112 60 - 199 CERNER mg/dL [facility] Comment: Supplemental ranges: <110 mg/dL before meals <200 mg/dL all other times of the day Specimen Anatomical Collection Method Collection Time Receive d Time (Source) Location / / Volume Laterality Blood specimen 08/29/2010 3:56 PM 011 3:56 (specimen) EDT PM EDT Benson Leahy MD POINT OF CARE TEST ORDERABLE S Performing Organization Address City/[facility]/[place] [address] CERNER [facility] POCT GLUCOSE LAB USE ONLY (08/29/2010 11:52 AM EDT) athologist Signature POC Glucose 120 60 - 199 CERNER mg/dL MILLENNIUM Comment: Supplemental ranges: <110 mg/dL before meals <200 mg/dL all other times of the day Specimen Anatomical Collection Method Collection Time Receive d Time (Source) Location / / Volume Laterality Blood specimen 08/29/2010 11:52 1 (specimen) AM EDT 11:52 AM EDT Benson Leahy MD POINT OF CARE TEST ORDERABLE S Performing Organization Address City/State/[place] [address] DAVID Yemeksepeti XR chest PA or AP- 1 view (08/29/2010 10:02 AM EDT) Anatomical Region Laterality Modality Chest N/A Radiographic Imaging Specimen (Source) Anatomical Collection Method Collection Time Re ceived Time Location / / Volume Laterality 08/29/2010 10:02 AM EDT Impressions 08/29/2010 12:32 PM EDT IMPRESSION: 1. New bilateral pigtail catheters with drainage of large amounts of pleural fluid. ?? 2. Nonspecific bibasilar opacity. ?? 3. No pneumothorax or other complication . Narrative 08/29/2010 12:32 PM EDT PORTABLE AP SUPINE CHEST, AUGUST 29, 2010, 0940 HOURS: ?? CLINICAL INDICATION: ??Status post drain age of pleural effusions, H flu growing in sputum. Question airspace disease. ?? COMPARISON: ??August 28. ?? FINDINGS: ??There are new bilateral pigt ail catheters overlying the lower lung zones. There is much less opacity overly ing the lower lung zones due to the removal of large amounts of pleural flui d. There is some residual opacity in both lungs bases, most likely due to ate lectasis, but a component of pneumonia cannot be excluded. The upper lung zones are clear. No pneumothorax or other complication is seen. Again noted are th e endotracheal tube, NG tube, and right-sided PIC catheter. ?? Procedure Note Randall Messina MD - 08/29/2010Form atting of this note might be different from the original. PORTABLE AP SUPINE CHEST, AUGUST 29, 2010, 0940 HOURS: CLINICAL INDICATION: Status post drainag e of pleural effusions, H flu growing in sputum. Question airspace disease. COMPARISON: August 28. FINDINGS: There are new bilateral pigtai l catheters overlying the lower lung zones. There is much less opacity overly ing the lower lung zones due to the removal of large amounts of pleural flui d. There is some residual opacity in both lungs bases, most likely due to ate lectasis, but a component of pneumonia cannot be excluded. The upper lung zones are clear. No pneumothorax or other complication is seen. Again noted are th e endotracheal tube, NG tube, and right-sided PIC catheter. IMPRESSION IMPRESSION: 1. New bilateral pigtail catheters with drainage of large amounts of pleural fluid. 2. Nonspecific bibasilar opacity. 3. No pneumothorax or other complication . Dayton Zepeda III, MD IMG DX ORDERABLES POCT GLUCOSE LAB USE ONLY (08/29/2010 7:56 AM EDT) P athologist Signature POC Glucose 114 60 - 199 CERNER mg/dL [facility] Comment: Supplemental ranges: <110 mg/dL before meals <200 mg/dL all other times of the day Specimen Anatomical Collection Method Collection Time Receive d Time (Source) Location / / Volume Laterality Blood specimen 08/29/2010 7:56 AM 011 7:56 (specimen) EDT AM EDT Benson Leahy MD POINT OF CARE TEST ORDERABLE S Performing Organization Address City/State/[place] [address] CERNER MILLENNIUM Lower Respiratory Culture Tracheal Aspirate (08/29/2010 6:06 AM EDT) Component Value Ref Test Analysis Performed At Patholo gist Range Method Time Signature Lower CERNER Respiratory ? Patient Name: VANDERL , LASHANDAEN R ?Ordered By: DAYTON ZEPEDA III [facility] Culture ? MR#: [id number] ?LOC: ??ICUS ? /Sex: ??1945 (64 years), ? Female ? PROCEDURE: Lower Respiratory Culture ?SOURCE: Trach Asp ? COLLECTED: 08/29/2010 06:06 ? STARTED: 08/29/2010 08:39 ? STAINS / PREPARATIONS ? Gram Stain Report ? Verified:08/29/2010 09:45 ? Many White Blood Cells seen ? Few squamous epithelial cells seen ? Many Gram Negative Rods seen ? Rare mixed bacterial morphotypes suggestive of normal upper respiratory ? shama ? FINAL REPORT ? Final Report ? Verified:08/31/2010 11:02 ? Moderate Haemophilus species, not influenzae ? Many mixed bacterial morphotypes suggestive of normal upper respiratory ? shama ? PRELIMINARY REPORT ? Preliminary Report ? Verified:08/30/2010 14:41 ? Moderate Haemophilus species ? Many mixed bacterial morphotypes suggestive of normal upper respiratory ? shama ? Specimen (Source) Anatomical Collection Method Collection Time Re ceived Time Location / / Volume Laterality Specimen from 08/29/2010 6:06 08/29/2010 8:39 trachea obtained AM EDT AM EDT by aspiration (specimen) Dayton Zepeda III, MD MICROBIOLOGY - GENERAL [facility] Performing Organization Address City/State/[place] [address] CERNER MILLENNIUM Osmolality (08/29/2010 5:40 AM EDT) athologist Signature Osmolality 291 275 - 295 CERNER mOsm/kg MILLENNIUM Specimen Anatomical Collection Method Collection Time Receive d Time (Source) Location / / Volume Laterality Blood specimen 08/29/2010 5:40 AM 011 5:54 (specimen) EDT AM EDT Leila Padilla MD CHEMISTRY ORDERABLES Performing Organization Address City/[facility]/[place] [address] CERNER MILLENNIUM Potassium (08/29/2010 5:40 AM EDT) P athologist Signature Potassium 4.0 3.5 - 5.0 CERNER mmol/L MILLENNIUM Comment: Please note: ??Patients with WBC >100,00 0 may have falsely elevated Potassium levels. ??For accurate Potassium quantif ication in these patients send serum separator tube (gold top) for subsequent determinations. ??Contact the Clinical Chemistry Laboratory if there are any qu estions. Specimen Anatomical Collection Method Collection Time Receive d Time (Source) Location / / Volume Laterality Blood specimen 08/29/2010 5:40 AM 011 5:54 (specimen) EDT AM EDT Zeke Richter MD CHEMISTRY ORDERABLES Performing Organization Address City/[facility]/ZIP [facility] [place] [address] CERNER MILLENNIUM POCT GLUCOSE LAB USE ONLY (08/29/2010 5:01 AM EDT) athologist Signature POC Glucose 104 60 - 199 CERNER mg/dL MILL[facility]UM Comment: Supplemental ranges: <110 mg/dL before meals <200 mg/dL all other times of the day Specimen Anatomical Collection Method Collection Time Receive d Time (Source) Location / / Volume Laterality Blood specimen 08/29/2010 5:01 AM 011 5:01 (specimen) EDT AM EDT Benson Leahy MD POINT OF CARE TEST ORDERABLE S Performing Organization Address [facility]/ZIP Code Phon e Number [address] CERNER MILLENNIUM POCT GLUCOSE LAB USE ONLY (08/29/2010 1:36 AM EDT) athologist Signature POC Glucose 129 60 - 199 CERNER mg/dL MILLENNIUM Comment: Supplemental ranges: <110 mg/dL before meals <200 mg/dL all other times of the day Specimen Anatomical Collection Method Collection Time Receive d Time (Source) Location / / Volume Laterality Blood specimen 08/29/2010 1:36 AM 011 1:36 (specimen) EDT AM EDT Benson Leahy MD POINT OF CARE TEST ORDERABLE S Performing Organization Address City/[facility]/[place] [address] CERNER MILLENNIUM (ABNORMAL) REFLEX LAB-A-DIFF (08/29/2010 1:10 AM EDT) [facility] gist Method Time Signature Neutrophils % 86.2 (H) 34.0 - CERNER 71.0 % MILLENNIUM Neutr Abs (ANC) 11.98 (H) 1.50 - CERNER 6.30 MILLENNIUM x10(3)/mc L Lymphocytes % 6.0 (L) 19.0 - CERNER 53.0 % MILLENNIUM Lymphocytes Abs 0.8 (L) 1.0 - 3.6 CERNER x10(3)/mc MILLENNIUM L Monocytes % 6.2 4.0 - CERNER 13.0 % MILLENNIUM Monocyte Abs 0.9 0.2 - 1.0 CERNER x10(3)/mc MILLENNIUM L Eosinophils % 0.9 0.0 - 7.0 CERNER % MILLENNIUM Eosinophils Abs 0.1 0.0 - 0.5 CERNER x10(3)/mc MILLENNIUM L Basophils % 0.3 0.0 - 2.0 CERNER % MILLENNIUM Basophils Abs 0.0 0.0 - 0.2 CERNER x10(3)/mc MILLENNIUM L Immature Gran % 0.40 0.00 - CERNER 0.66 % MILLENNIUM Comment: Immature granulocytes(IG's)percentage an d absolute count will include metamyelocytes, myelocytes, and promyelo cytes. Blood smears from CBCs yielding IG's will be scanned manually for concor dance. If this scan disagrees with the automated IG or if promyelocytes are not ed, a manual differential will be performed. Liss Gran Abs 0.05 0.00 - 0.05 x10(3)/mcL CER NER MILLENNIUM Specimen Anatomical Collection Method Collection Time Receive d Time (Source) Location / / Volume Laterality Blood specimen 08/29/2010 1:10 AM 011 1:21 (specimen) EDT AM EDT Benson Leahy MD HEMATOLOGY ORDERABLES Performing Organization Address City/State/ZIP Code Phon e Number [place] [phone] [facility] [address] CERNER MILLENNIUM REFLEX LAB-SCAN, PERIPHERAL BLOOD (08/29/2010 1:10 AM EDT) Patholo gist Method Time Signature Plat Estimate Increased CERNER MILLENNIUM RBC Morphology Abnormal CERNER MILLENNIUM Tear Drop 1-5 /HPF CERNER Cells MILLENNIUM [place] Cells 1-5 /HPF CERNER MILLENNIUM Giant Less than 1 /HPF CERNER Platelets MILLENNIUM Specimen Anatomical Collection Method Collection Time Receive d Time (Source) Location / / Volume Laterality Blood specimen 08/29/2010 1:10 AM 011 1:21 (specimen) EDT AM EDT Benson Leahy MD HEMATOLOGY ORDERABLES Performing Organization Address City/[facility]/ZIP Code Phon e Number [address] CERNER MILLENNIUM OSMOLALITY (08/29/2010 1:10 AM EDT) P athologist Signature Osmolality 294 275 - 295 CERNER mOsm/kg MILLENNIUM Specimen Anatomical Collection Method Collection Time Receive d Time (Source) Location / / Volume Laterality Blood specimen 08/29/2010 1:10 AM 011 1:21 (specimen) EDT AM EDT Benson Leahy MD CHEMISTRY ORDERABLES Performing Organization Address City/[facility]/ZIP [facility] Phon e Number [address] CERNER MILLENNIUM (ABNORMAL) CBC (with Diff) (08/29/2010 1:10 AM EDT) P athologist Signature WBC 13.9 (H) 4.0 - 10.0 CERNER x10(3)/mcL MILLENNIUM RBC 3.64 (L) 3.93 - CERNER 5.22 MILLENNIUM x10(6)/mcL Hemoglobin 10.3 (L) 11.2 - CERNER 15.7 gm/dL MILLENNIUM Hematocrit 31.3 (L) 34.0 - CERNER 45.0 % MILLENNIUM MCV 86.0 79.0 - CERNER 94.0 fL MILLENNIUM MCH 28.3 26.6 - CERNER 32.2 pg MILLENNIUM MCHC 32.9 32.0 - CERNER 36.5 gm/dL MILLENNIUM Platelets 815 (H) 145 - 370 CERNER x10(3)/mcL MILLENNIUM RDWSD 49.5 (H) 35.0 - CERNER 46.0 fL MILLENNIUM RDWCV 15.6 (H) 10.9 - CERNER 14.4 % MILLENNIUM MPV 9.4 9.0 - 12.0 CERNER fL MILLENNIUM Specimen Anatomical Collection Method Collection Time Receive d Time (Source) Location / / Volume Laterality Blood specimen 08/29/2010 1:10 AM 011 1:21 (specimen) EDT AM EDT Benson Leahy MD HEMATOLOGY ORDERABLES Performing Organization Address City/State/ZIP Code Phon e Number [place] [phone] [facility] CERNER MILLENNIUM (ABNORMAL) Basic Metabolic Panel (non-fasting) (08/29/2010 1:10 AM EDT) P athologist Signature Glucose Lvl 131 60 - 199 CERNER mg/dL MILLENNIUM Comment: Diabetes: >=200 mg/dL plus symp toms BUN 15 8 - 18 mg/dL CERNER MILLENNIUM Creatinine 0.34 (L) 0.70 - 1.20 mg/dL CERNER MILL ENNIUM Sodium 138 135 - 145 mmol/L CERNER ORLY NIUM Potassium 3.6 3.5 - 5.0 mmol/L CERNER ORLY NIUM Comment: Please note: ??Patients with WBC >100,00 0 may have falsely elevated Potassium levels. ??For accurate Potassium quantif ication in these patients send serum separator tube (gold top) for subsequent determinations. ??Contact the Clinical Chemistry Laboratory if there are any qu estions. Chloride 105 98 - 107 mmol/L CERNER MILLENN IUM CO2 25 22 - 31 mmol/L CERNER MILLENNI UM Anion Gap 8 5 - 15 mmol/L CERNER MILLENNIU M Calcium 8.3 (L) 8.5 - 10.5 mg/dL CERNER ORLY NIUM Estimated GFR >60 >=60 CERNER MILLENNIU M Comment: The National Kidney Disease Education Pr ogram (NKDEP) has recommended all laboratories report estimated GFR (eGFR) along with plasma creatinine measurements to assist you with recognit ion of early kidney disease. Caveats: ??Plasma creatinine should be a t steady-state (unchanged within the past week). For patient s multiply eGFR by 1.2.MDRD equation has not been validated for pediatric pat ients and is only valid for patients with age >= 18 years. At present, NKDEP does NOT recommend usi ng the MDRD equation for drug dosing purposes and pharmacists should continue to use their current dosing methods. In addition, numerical eGFR values great er than 60 ml/min/1.73 square meters should be treated as > 60, and not an ex act number due to greater inaccuracies at these higher values. Per NKDEP, they classify normal renal function as any GFR >60ml/min/1.73 square meters; chronic kidney disease wh en GFR <60, and renal failure when GFR <15. ??This calculation may not be valid for patients with atypical muscle mass (very lean or obese), acute renal failur e, and in patients with diabetic kidney disease. References: http://nkdep.nih.gov/resources/NKDEP_Sug gestn4Labs_0606_508.pdf http://www.kidney.org/professionals/kls/ pdf/faq_gfr.pdf Specimen Anatomical Collection Method Collection Time Receive d Time (Source) Location / / Volume Laterality Blood specimen 08/29/2010 1:10 AM 011 1:21 (specimen) EDT AM EDT Benson Leahy MD CHEMISTRY ORDERABLES Performing Organization Address City/State/[place] [address] [facility] POCT GLUCOSE LAB USE ONLY (08/28/2010 9:04 PM EDT) athologist Signature POC Glucose 127 60 - 199 CERNER mg/dL [facility] Comment: Supplemental ranges: <110 mg/dL before meals <200 mg/dL all other times of the day Specimen Anatomical Collection Method Collection Time Receive d Time (Source) Location / / Volume Laterality Blood specimen 08/28/2010 9:04 PM 011 9:04 (specimen) EDT PM EDT Benson Leahy MD POINT OF CARE TEST ORDERABLE S Performing Organization Address City/State/ZIP Code Phon e Number [facility] [place] [address] [facility] FLUID REVIEW REPORT (08/28/2010 7:54 PM EDT) Component Value Ref Test Analysis Performed At [facility] gist Range Method Time Signature Fluid Review [facility] Report ? [facility] ? Provider: ?? KATELYN BORRERO, ?Pt. Name: ?? CHLOE WHITMORE, DEN Galindo ?DAYTON F ? Acc #: ?[id number] ? Pt. ? Col Date: ?? 08/28/2010 ?/Sex: ?1945,(64 years),Female ? Rec Date: ?? 08/28/2010 ?LOC: ?ICUS ? MORPHOLOGIC HEMATOLOGY: FLUID REVIEW ? ---Clinical Information--- ? Specimen: ? PLEURAL FLUID ? Clinical Diagnosis: ? NA ? Indication for Study: ?? BFCT ? ---Preparation--- ? Microscopic Description: ?WBC/ul: ?270 ? 200 cells counted on cytocentrifuge preparation . ? # ?Neut: ??74 ?Lymph: 12 ?Phag: ??90 ?Meso: ??24 ?Eos: ?? _ ?Baso: ??_ ?Other: _ ? ---Interpretation--- ? SPECIMEN SUBMITTED: ? INTERNAL LABORATORY BODY FLUID REVIEW ? A Dyer's stained sm ear of this ??fluid has been referred to a pathologist ? by the hematology lab oratory for internal review. ??The review agreed with ? the results that have been report ed on this patient's laboratory chart. ? THIS IS NOT A CYTOLOGY REPORT. ? 08/29/10 ? PK ? 08/29/10 Verified by: ? Flora LYNNE, Nikolai ? Hematopatholog ist ? (Electronic Si gnature) ? The attending pathologist whose signature appears o n this report has ? reviewed all diagnostic slides and has edited the jennifer ss and/or ? microscopic portion of the report in rendering the fi nal pathologic ? diagnosis. Specimen (Source) Anatomical Collection Method Collection Time Re ceived Time Location / / Volume Laterality 08/28/2010 7:54 PM EDT Dayton Zepeda III, MD PATHOLOGY/CYTOLOGY ORDERABL ES Performing Organization Address City/State/[place] [address] [facility] Echo Transthoracic (Complete) (08/28/2010 5:19 PM EDT) P athologist Signature EF 60 [facility] Anatomical Region Laterality Modality Other Specimen (Source) Anatomical Location Collection Method / Collectio n Time Received Time / Laterality Volume 08/29/2010 Narrative 08/29/2010 8:28 AM EDT Procedure: ? Transthoracic Echocardiogram ? Patient: ? DIANE AGUIRRE R ?(Age): 1945(64) Med Rec#: ?[id number] ?Sex: ?F ? [place] ?Ht / Wt: ??(cm)/63(kg) ?? Pt. Loc: ? ICU ? BSA: ? Study Date: ?08/28/2010 ?Pt. Type: Inpatient Tape: ? Referring: Dayton [place] [employer] Researcher: Sarabjit Gustafson Diagnosis: ??Hypoxia (799.02) CPT Code(s): ??Echo Full (79868), ??Spec tral Doppler (05701), ??Color Doppler (50050), Indication(s): ??Hypoxia Rhythm: HR ?BP ?92/47 ?? SUMMARY: 1. The left ventricular chamber size is normal. Left ventricular wall thickness is normal. There is a small ar ea of apical akinesis. There is normal global left ventricular systolic function. ??Ejection fraction is estimated to be 60%. 2. Right ventricular chamber size, wall thickness, and systolic function are within normal limits. 3. No intracardiac shunt noted. 4. There is no hemodynamically significa nt valve disease. 5. The estimated pulmonary artery systol ic pressure is 32 mmHg. 6. See remainder of report for additiona l findings. FINDINGS: Left Ventricle ?The left ventricular chamber size is normal. ?Left ventricular wall thickness is normal. ?There is normal global left ventri cular systolic function. ??Ejection fraction is estimated to be 60%. ?There are left ventricular segment al wall motion abnormalities present, as shown in the diagram below. ?The ??apical septal, apical anteri or, apical lateral and apical inferior wall segments are akinetic. ?No thrombus is visualized within t he left ventricle. Left Atrium ?The left atrium is mildly dilated. Right Ventricle ?Right ventricular chamber size, wa ll thickness, and systolic function are within normal limits. ?The estimated pulmonary artery sys tolic pressure is 32 mmHg. ?The estimated right atrial pressur e is 3 mmHg. Right Atrium ?The right atrium is normal in size . Aortic Valve ?The aortic valve is probably tricu spid. ?There is no evidence of aortic karen ve stenosis. ?There is no evidence of aortic reg urgitation. Mitral Valve ?The mitral valve appears normal in structure and function. ?There is mild (1+/4+) mitral regur gitation present. Tricuspid Valve ?The tricuspid valve appears normal in structure and function. ?There is trace tricuspid regurgita tion present. Pulmonic Valve ?The pulmonic valve appears normal in structure and function. Pericardium ?The pericardium appears normal and there is no evidence of a pericardial effusion. Aorta ?The aortic root is normal in size. ?The ascending aorta was not well v isualized. Pulmonary Artery ?The main pulmonary artery appears normal. Venous ?The inferior vena cava appears nor mal in size. ?There is a greater than 50% respir atory change in the inferior vena cava dimension. Misc ?Two-dimensional echo, spectral Dop pler and color Doppler performed. Wall Motion: Segment Name ?Rest ? Base-Anteroseptal ?? Normal ? Base-Anterior ? Normal ? Base-Anterolateral ??Normal ? Base-Posterolateral Normal ? Base-Inferior ? Normal ? Base-Inferoseptal ?? Normal ? Mid-Anteroseptal ?Normal ? Mid-Anterior ?Normal ? Mid-Anterolateral ?? Normal ? Mid-Posterolateral ??Normal ? Mid-Inferior ?Normal ? Mid-Inferoseptal ?Normal ? [place]-Septal ? Akinetic ? Flint-Anterior ? Akinetic ? [place]-Lateral ?Akinetic ? [place]-Inferior ? Akinetic ? Flint-Tip ?Akinetic ? Chambers ?Value ?Units (Range) ? LV EF Est ? 60 ? % (55 to 80) ? IVSd 2D ? 0.8 ?cm ? LVIDd 2D ?3.9 ?cm ? PWd 2D ?0.7 ?cm ? LVIDs 2D ?2.3 ?cm ? LVFS 2D ? 41 ? % ? LA area ? 23 ? cm2 (<21) ? RA area ? 12 ? cm2 (<18) ? Ao root ? 2.4 ?cm (2.1 to 3.6) ? Mitral Valve ?Value ?Units (Range) ? E peak ?1.14 ? m/sec ? E/A ratio ? 1.5 ?ratio ? E1 ?0.11 ? m/sec ? E/E1 ?10.4 ? ratio ? Tricuspid/Pulmonic Valves ?Value ?Units (Range) ? TR peak anton ? 2.7 ?m/sec ? RAP ? 3 ?mmHg ? RVSP/PASP ? 32 ? mmHg ? This report has been electronically sign ed by: _ Randall Bailey MD ? 08/29/2010 08 :27:55 Images reviewed and interpretation shelli polanco [facility] Cardiac Ultrasound Laboratory Procedure Note 08/29/2010 Procedure: Transthoracic Echocardiogram Patient: DIANE Galindo (Age): (64) Med Rec#: [id number] Sex: F [place] [facility] Ht / Wt: (cm)/63(kg) Pt. Loc: ICU BSA: Study Date: 08/28/2010 Pt. Type: Inpatie nt Tape: Referring: Dayton Richmond Global [employer] Researcher: Sarabjit Gustafson Diagnosis: Hypoxia (799.02) CPT Code(s): Echo Full (22220), Spectral Doppler (67758), Color Doppler (38971), Indication(s): Hypoxia Rhythm: HR BP 92/47 SUMMARY: 1. The left ventricular chamber size is normal. Left ventricular wall thickness is normal. There is a small ar ea of apical akinesis. There is normal global left ventricular systolic function. Ejection fraction is estimated to be 60%. 2. Right ventricular chamber size, wall thickness, and systolic function are within normal limits. 3. No intracardiac shunt noted. 4. There is no hemodynamically significa nt valve disease. 5. The estimated pulmonary artery systol ic pressure is 32 mmHg. 6. See remainder of report for additiona l findings. FINDINGS: Left Ventricle The left ventricular chamber size is no rmal. Left ventricular wall thickness is norm al. There is normal global left ventricular systolic function. Ejection fraction is estimated to be 60%. There are left ventricular segmental wa ll motion abnormalities present, as shown in the diagram below. The apical septal, apical anterior, api ladonna lateral and apical inferior wall segments are akinetic. No thrombus is visualized within the le ft ventricle. Left Atrium The left atrium is mildly dilated. Right Ventricle Right ventricular chamber size, wall th ickness, and systolic function are within normal limits. The estimated pulmonary artery systolic pressure is 32 mmHg. The estimated right atrial pressure is 3 mmHg. Right Atrium The right atrium is normal in size. Aortic Valve The aortic valve is probably tricuspid. There is no evidence of aortic valve st enosis. There is no evidence of aortic regurgit ation. Mitral Valve The mitral valve appears normal in stru cture and function. There is mild (1+/4+) mitral regurgitat ion present. Tricuspid Valve The tricuspid valve appears normal in s tructure and function. There is trace tricuspid regurgitation present. Pulmonic Valve The pulmonic valve appears normal in st ructure and function. Pericardium The pericardium appears normal and ther e is no evidence of a pericardial effusion. Aorta The aortic root is normal in size. The ascending aorta was not well visual ized. Pulmonary Artery The main pulmonary artery appears zeferino l. Venous The inferior vena cava appears normal i n size. There is a greater than 50% respiratory change in the inferior vena cava dimension. [facility] Two-dimensional echo, spectral Doppler and color Doppler performed. Wall Motion: Segment Name Rest Base-Anteroseptal Normal Base-Anterior Normal Base-Anterolateral Normal Base-Posterolateral Normal Base-Inferior Normal Base-Inferoseptal Normal Mid-Anteroseptal Normal Mid-Anterior Normal Mid-Anterolateral Normal Mid-Posterolateral Normal Mid-Inferior Normal Mid-Inferoseptal Normal Flint-Septal Akinetic [place]-Anterior Akinetic [place]-Lateral Akinetic [place]-Inferior Akinetic Flint-Tip Akinetic Chambers Value Units (Range) LV EF Est 60 % (55 to 80) IVSd 2D 0.8 cm LVIDd 2D 3.9 cm PWd 2D 0.7 cm LVIDs 2D 2.3 cm LVFS 2D 41 % LA area 23 cm2 (<21) RA area 12 cm2 (<18) Ao root 2.4 cm (2.1 to 3.6) Mitral Valve Value Units (Range) E peak 1.14 m/sec E/A ratio 1.5 ratio E1 0.11 m/sec E/E1 10.4 ratio Tricuspid/Pulmonic Valves Value Units (Range) TR peak anton 2.7 m/sec RAP 3 mmHg RVSP/PASP 32 mmHg This report has been electronically sign ed by: _ Randall Bailey MD 08/29/2010 08:27:55 Images reviewed and interpretation [facility] Dayton Zepeda III, MD ECHO ORDERABLES POCT GLUCOSE LAB USE ONLY (08/28/2010 4:36 PM EDT) P athologist Signature POC Glucose 103 60 - 199 CERNER mg/dL [facility] Comment: Supplemental ranges: <110 mg/dL before meals <200 mg/dL all other times of the day Specimen Anatomical Collection Method Collection Time Receive d Time (Source) Location / / Volume Laterality Blood specimen 08/28/2010 4:36 PM 011 4:36 (specimen) EDT PM EDT Benson Leahy MD POINT OF CARE TEST ORDERABLE S Performing Organization Address City/State/[place] [address] CERNER MILLENNIUM REFLEX LAB-ANAEROBIC CULTURE (08/28/2010 4:14 PM EDT) [facility] Method Time Signature Anaerobic CERNER Culture ? Patient Name: VINOD , DEN R ?Ordered By: DAYTON ZEPEDA III ? MR#: [id number] ?LOC: ??ICUS ? /Sex: ??1945 (64 years), ? Female ? PROCEDURE: Anaerobic Culture ?SOURCE: Pleural Fl ? COLLECTED: 08/28/2010 16:14 ? STARTED: 08/28/2010 17:14 ? FINAL REPORT ? Final Report ? Verified:09/01/2010 14:38 ? No anaerobic organisms isolated ? PRELIMINARY REPORT ? Preliminary Report ? Verified:08/30/2010 15:02 ? No anaerobic organisms isolated to date ? Specimen Anatomical Collection Method Collection Time Receive d Time (Source) Location / / Volume Laterality Pleural fluid 08/28/2010 4:14 PM 08/29/19 11 5:14 specimen EDT PM EDT (specimen) Dayton Zepeda III, MD MICROBIOLOGY - GENERAL [facility] [place] Performing Organization Address City/State/[place] [address] DAVID MILLENNIUM BODY FLUID CULTURE (08/28/2010 4:14 PM EDT) Component Value Ref Test Analysis Performed At [facility] Range Method Time Signature Body Fluid CERNER Culture ? Patient Name: VINOD , DEN R ?Ordered By: DAYTON ZEPEDA III [facility] ? MR#: [id number] ?LOC: ??ICUS ? /Sex: ??1945 (64 years), ? Female ? PROCEDURE: Body Fluid Culture ?SOURCE: Pleural Fl ? COLLECTED: 08/28/2010 16:14 ? STARTED: 08/28/2010 16:52 ? STAINS / PREPARATIONS ? Gram Stain Report ? Verified:08/28/2010 17:35 ? Cytocentrifuge Gram Stain performed ? White Blood Cells seen ? No microorganisms seen. ? FINAL REPORT ? Final Report ? Verified:09/01/2010 10:19 ? No growth ? PRELIMINARY REPORT ? Preliminary Report ? Verified:08/29/2010 09:12 ? No growth to date. ? Specimen Anatomical Collection Method Collection Time Receive d Time (Source) Location / / Volume Laterality Pleural fluid 08/28/2010 4:14 PM 08/29/19 11 4:52 specimen EDT PM EDT (specimen) Dayton Zepeda III, MD MICROBIOLOGY - GENERAL [facility] [place] Performing Organization Address City/State/ZIP Code Phon [place] [address] DAVID MILLENNIUM [employer] culture Pleural Fluid (08/28/2010 4:14 PM EDT) [facility] Method Time Signature Acid Fast CERNER Bacilli ? Patient Name: VINOD , DEN Galindo ?Ordered By: DAYTON ZEPEDA III MILLENNIUM Culture ? MR#: [id number] ?LOC: ??3WST ? /Sex: ??1945 (64 years), ? Female ? PROCEDURE: Acid Fast Bacilli Culture ?SOURCE: Pleural Fl ? COLLECTED: 08/28/2010 16:14 ? STARTED: 08/28/2010 16:52 ? STAINS / PREPARATIONS ? Acid Fast Stain Report ? Verified:08/29/2010 22:21 ? No Acid Fast Bacilli seen ? FINAL REPORT ? Final Report ? Verified:10/26/2010 10:06 ? No Acid Fast Bacilli isolated ? If active tuberculosis is suspected, the patient should be on [employer] ? PRECAUTIONS. ? Call [employer] [phone]) for assistance if needed. ? PRELIMINARY REPORT ? Preliminary Report ? Verified:08/30/2010 14:01 ? No Acid Fast Bacilli isolated to date If active tuberculosis is suspected, ? the patient should be on ? [employer] PRECAUTIONS. Call [employer] ([phone]) for assistan ce if needed. ? Specimen Anatomical Collection Method Collection Time Receive d Time (Source) Location / / Volume Laterality Pleural fluid 08/28/2010 4:14 PM 08/29/19 11 4:52 specimen EDT PM EDT (specimen) Dayton Zepeda III, MD MICROBIOLOGY - GENERAL [facility] [place] Performing Organization Address City/[facility] Phon e Number [address] CERNER MILLENNIUM Glucose Level Body Fluid (08/28/2010 4:14 PM EDT) P athologist Signature Glucose, BF 116 mg/dL CERNER MILLENNIUM Comment: No reference range is available for the specimen type submitted. ??The performance of this assay for the submit aristeo type has not been validated and results should be interpreted accordingl y and with regard to the patient's clinical status. Gluc, BF Type Pleural fluid CERNER MILLE NNIUM Specimen Anatomical Collection Method Collection Time Receive d Time (Source) Location / / Volume Laterality Body fluid 08/28/2010 4:14 PM 1 4:43 specimen EDT PM EDT (specimen) Dayton Zepeda III, MD BODY FLUIDS AND STOOLS [facility] [place] Performing Organization Address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 equal to 43.5 seconds, or Fibrinogen gre ater than or equal to 100 mg/dl indicate adequate procoagulant activity for hemostasis in patients without underlying bleeding disorders. INR 1.0 0.9 - 1.1 CERNER MILLENNIUM Specimen Anatomical Collection Method Collection Time Receive d Time (Source) Location / / Volume Laterality Blood specimen 08/28/2010 2:10 AM 011 2:17 (specimen) EDT AM EDT Benson Leahy MD HEMATOLOGY ORDERABLES Performing Organization Address City/[facility] [place] [address] CERNER MILLENNIUM POCT GLUCOSE LAB USE ONLY (08/28/2010 1:23 AM EDT) athologist Signature POC Glucose 134 60 - 199 CERNER mg/dL MILLENNIUM Comment: Supplemental ranges: <110 mg/dL before meals <200 mg/dL all other times of the day Specimen Anatomical Collection Method Collection Time Receive d Time (Source) Location / / Volume Laterality Blood specimen 08/28/2010 1:23 AM 011 1:23 (specimen) EDT AM EDT Benson Leahy MD POINT OF CARE TEST ORDERABLE S Performing Organization Address City/[facility] [place] [address] CERNER MILLENNIUM POCT GLUCOSE LAB USE ONLY (08/27/2010 9:22 PM EDT) athologist Signature POC Glucose 175 60 - 199 CERNER mg/dL MILLENNIUM Comment: Supplemental ranges: <110 mg/dL before meals <200 mg/dL all other times of the day Specimen Anatomical Collection Method Collection Time Receive d Time (Source) Location / / Volume Laterality Blood specimen 08/27/2010 9:22 PM 011 9:22 (specimen) EDT PM EDT Benson Leahy MD POINT OF CARE TEST ORDERABLE S Performing Organization Address City/State/ZIP Code Phon e Number [place] [phone] CERNER MILLENNIUM (ABNORMAL) REFLEX LAB-BLOOD GAS 2 ARTERIAL (08/27/2010 9:15 PM EDT) P athologist Signature pH Art 7.38 7.35 - CERNER 7.45 MILLENNIUM pCO2 Art 41 35 - 45 CERNER mmHg MILLENNIUM pO2 Art 61 (L) 85 - 104 CERNER mmHg MILLENNIUM HCO3 Art 23.8 20.0 - CERNER 26.0 MILLENNIUM mmol/L BE Art -1.3 -3.0 - 3.0 CERNER mmol/L MILLENNIUM Hgb Blood Gas 9.9 (L) 11.2 - CERNER 15.7 gm/dL MILLENNIUM Comment: Total Hemoglobin (in gm/dL) ?Based on [facility] [place] ran ges: ?Age ?Referen ce Range Less than 3 days ?14.5 to 22.5 3 days to 2 weeks ? 12.5 to 20.5 2 weeks to 1 month ?10.0 to 18.0 1 to 6 months ?9.4 to 14 .0 6 months to 2 years ? 10.5 to 13.5 2 to 6 years ?11.5 to 13 .5 6 to 12 years ? 11.5 to 15. 5 12 to 18 years (female) 12.0 to 16.0 ? (male) ?? 13.0 to 16.0 > 18 years ? (female) 11.2 to 15.7 ? (male) ?? 13.7 to 17.5 O2HB Art 89.0 (L) 94.0 - 97.0 % CERNER MILLENNIU M COHB Art 0.9 % CERNER MILLENNIUM Comment: Nonsmokers: 0.5-1.5% COHB Smokers: Variable, but usually less than 10% Toxic: 20-30% COHB Lethal: Greater than 60% COHB METHB Art 0.2 <=1.5 % CERNER MILLENNIUM Na Whole Blood 138 135 - 145 mmol/L CERNER M ILLENNIUM K Whole Blood 3.6 3.5 - 5.0 mmol/L CERNER [place] LLENNIUM Comment: Please note: Patients with WBC >100,000 may have falsely elevated Potassium levels. Contact the Clinical Chemistry L aboratory if there are any questions. ICa Whole Blood 1.19 1.15 - 1.33 mmol/L CERNE R MILLENNIUM Comment: Reference Ranges: ?? < 19 yrs: 1.22 - 1.37 mmol/L ? Adults: 1.15 - 1.33 mmol/L Note: ??Total bilirubin higher than 20 m g/dL may lead to falsely low ionized calcium. CL Whole Blood 106 98 - 107 mmol/L [facility] LLENNIUM Gluc Whole Bld 178 60 - 199 mg/dL [facility] MIL LENNIUM Comment: Diabetes: >=200 mg/dL plus symp toms. FIO2 Art 40 % CERNER MILLENNIUM PF Ratio Art 152 CERNER MILLENNIUM Specimen Anatomical Collection Method Collection Time Receive d Time (Source) Location / / Volume Laterality Blood specimen 08/27/2010 9:15 PM 011 9:15 (specimen) EDT PM EDT Benson Leahy MD CHEMISTRY ORDERABLES Performing Organization Address City/State/[place] [address] CERNER MILLENNIUM (ABNORMAL) Osmolality (08/27/2010 8:00 PM EDT) P athologist Signature Osmolality 297 (H) 275 - 295 CERNER mOsm/kg MILLENNIUM Specimen Anatomical Collection Method Collection Time Receive d Time (Source) Location / / Volume Laterality Blood specimen 08/27/2010 8:00 PM 011 8:13 (specimen) EDT PM EDT Leila Padilla MD CHEMISTRY ORDERABLES Performing Organization Address City/State/ZIP Code Phon e Number [address] [facility] Electrolytes panel (08/27/2010 8:00 PM EDT) P athologist Signature Sodium 137 135 - 145 CERNER mmol/L MILLENNIUM Potassium 4.0 3.5 - 5.0 CERNER mmol/L MILLENNIUM Comment: Please note: ??Patients with WBC >100,00 0 may have falsely elevated Potassium levels. ??For accurate Potassium quantif ication in these patients send serum separator tube (gold top) for subsequent determinations. ??Contact the Clinical Chemistry Laboratory if there are any qu estions. Chloride 103 98 - 107 mmol/L CERNER MILLENN IUM CO2 26 22 - 31 mmol/L CERNER MILLENNI UM Anion Gap 8 5 - 15 mmol/L CERNER MILLENNIU M Specimen Anatomical Collection Method Collection Time Receive d Time (Source) Location / / Volume Laterality Blood specimen 08/27/2010 8:00 PM 011 8:13 (specimen) EDT PM EDT Leila Padilla MD CHEMISTRY ORDERABLES Performing Organization Address City/State/ZIP Code Phon e Number [address] [facility] REFLEX LAB-ABORH TYPE MANUAL (08/27/2010 7:24 PM EDT) Analysis Performed At Patho logist Time Signature Expires at [id number] CERNER 235 on: MILLENNIUM ABORh Type A Pos CERNER [facility] Specimen Anatomical Collection Method Collection Time Receive d Time (Source) Location / / Volume Laterality Blood specimen 08/27/2010 7:24 PM 011 7:24 (specimen) EDT PM EDT Benson Leahy MD BLOOD BANK ORDERABLES Performing Organization Address City/State/ZIP Code Phon e Number [address] [facility] Lower Respiratory Culture Other (08/27/2010 6:52 PM EDT) Component Value Ref Test Analysis Performed At Patholo gist Range Method Time Signature Lower CERNER Respiratory ? Patient Name: VANDERL , TAMSEN R ?Ordered By: BENSON LEAHY [facility] Culture ? MR#: [id number] ?LOC: ??ICUS ? /Sex: ??1945 (64 years), ? Female ? PROCEDURE: Lower Respiratory Culture ?SOURCE: Trach Asp ? COLLECTED: 08/27/2010 18:52 ? STARTED: 08/27/2010 19:55 ? STAINS / PREPARATIONS ? Gram Stain Report ? Verified:08/27/2010 22:16 ? Many White Blood Cells seen ? Few squamous epithelial cells seen ? Many Gram Negative Rods seen ? Many mixed bacterial morphotypes suggestive of normal upper respiratory ? shama ? FINAL REPORT ? Final Report ? Verified:08/31/2010 11:01 ? Many Haemophilus spec ies, not influenzae Beta-lactamase result indicates ? organism may be susceptible to ? ampicillin and penicillin. ? Many mixed bacterial morphotypes suggestive of normal upper respiratory ? shama ? PRELIMINARY REPORT ? Preliminary Report ? Verified:08/28/2010 09:02 ? Many Haemophilus spec ies Beta-lactamase result indicates organism may be ? susceptible to ampicillin and ? penicillin. ? Rare mixed bacterial morphotypes suggestive of normal upper respiratory ? shama ? Specimen (Source) Anatomical Collection Method Collection Time Re ceived Time Location / / Volume Laterality Specimen from 08/27/2010 6:52 08/27/2010 7:54 trachea obtained PM EDT PM EDT by aspiration (specimen) Benson Leahy MD MICROBIOLOGY - GENERAL ORDER RITO Performing Organization Address City/[facility]/[place] [address] [facility] REFLEX LAB-ANTIBODY SCREEN (08/27/2010 5:55 PM EDT) Analysis Performed At [facility] logist [place] Signature Ab Screen Negative [facility] Expires at [id number] [facility] [id number] on: [facility] Specimen Anatomical Collection Method Collection Time Receive d Time (Source) Location / / Volume Laterality Blood specimen 08/27/2010 5:55 PM 011 6:13 (specimen) EDT PM EDT Benson Leahy MD BLOOD BANK ORDERABLES Performing Organization Address City/[facility]/[place] [address] [facility]-ABO/RH TYPING (08/27/2010 5:55 PM EDT) athologist Signature ABORh Type A Pos [facility] Specimen Anatomical Collection Method Collection Time Receive d Time (Source) Location / / Volume Laterality Blood specimen 08/27/2010 5:55 PM 011 6:13 (specimen) EDT PM EDT Benson Leahy MD BLOOD BANK ORDERABLES Performing Organization Address City/[facility]/[place] [address] [facility] POCT GLUCOSE LAB USE ONLY (08/27/2010 5:53 PM EDT) P athologist Signature POC Glucose 113 60 - 199 [facility] mg/dL [facility] Comment: Supplemental ranges: <110 mg/dL before meals <200 mg/dL all other times of the day Specimen Anatomical Collection Method Collection Time Receive d Time (Source) Location / / Volume Laterality Blood specimen 08/27/2010 5:53 PM 07/04/2 011 5:53 (specimen) EDT PM EDT Benson Leahy MD POINT OF CARE TEST ORDERABLE S Performing Organization Address City/[facility]/[place] [address] CERNER MILLENNIUM POCT GLUCOSE LAB USE ONLY (08/27/2010 1:47 PM EDT) athologist Signature POC Glucose 119 60 - 199 CERNER mg/dL MILLENNIUM Comment: Supplemental ranges: <110 mg/dL before meals <200 mg/dL all other times of the day Specimen Anatomical Collection Method Collection Time Receive d Time (Source) Location / / Volume Laterality Blood specimen 08/27/2010 1:47 PM 011 1:47 (specimen) EDT PM EDT Benson Leahy MD POINT OF CARE TEST ORDERABLE S Performing Organization Address City/[facility]/ZIP Code Phon e Number [address] CERNER MILLENNIUM Osmolality (08/27/2010 1:45 PM EDT) athologist Signature Osmolality 288 275 - 295 CERNER mOsm/kg MILLENNIUM Specimen Anatomical Collection Method Collection Time Receive d Time (Source) Location / / Volume Laterality Blood specimen 08/27/2010 1:45 PM 011 1:52 (specimen) EDT PM EDT Leila Padilla MD CHEMISTRY ORDERABLES Performing Organization Address City/[facility]/[place] [address] CERNER MILLENNIUM (ABNORMAL) Electrolytes panel (08/27/2010 1:45 PM EDT) athologist Signature Sodium 134 (L) 135 - 145 CERNER mmol/L MILLENNIUM Potassium 3.9 3.5 - 5.0 CERNER mmol/L MILLENNIUM Comment: Please note: ??Patients with WBC >100,00 0 may have falsely elevated Potassium levels. ??For accurate Potassium quantif ication in these patients send serum separator tube (gold top) for subsequent determinations. ??Contact the Clinical Chemistry Laboratory if there are any qu estions. Chloride 107 98 - 107 mmol/L CERNER MILLENN IUM CO2 26 22 - 31 mmol/L CERNER MILLENNI UM Anion Gap 1 (L) 5 - 15 mmol/L CERNER MILLENNIU M Specimen Anatomical Collection Method Collection Time Receive d Time (Source) Location / / Volume Laterality Blood specimen 08/27/2010 1:45 PM 011 1:52 (specimen) EDT PM EDT Leila Padilla MD CHEMISTRY ORDERABLES Performing Organization Address City/State/ZIP Code Phon e Number [address] CERNER MILLENNIUM POCT GLUCOSE LAB USE ONLY (08/27/2010 12:04 PM EDT) athologist Signature POC Glucose 125 60 - 199 CERNER mg/dL [facility] Comment: Supplemental ranges: <110 mg/dL before meals <200 mg/dL all other times of the day Specimen Anatomical Collection Method Collection Time Receive d Time (Source) Location / / Volume Laterality Blood specimen 08/27/2010 12:04 1 (specimen) PM EDT 12:04 PM EDT Benson Leahy MD POINT OF CARE TEST ORDERABLE S Performing Organization Address City/[facility]/ZIP Code Phon e Number [address] CERNER MILLENNIUM POCT GLUCOSE LAB USE ONLY (08/27/2010 10:05 AM EDT) athologist Signature POC Glucose 139 60 - 199 CERNER mg/dL [facility] Comment: Supplemental ranges: <110 mg/dL before meals <200 mg/dL all other times of the day Specimen Anatomical Collection Method Collection Time Receive d Time (Source) Location / / Volume Laterality Blood specimen 08/27/2010 10:05 1 (specimen) AM EDT 10:05 AM EDT Benson Leahy MD POINT OF CARE TEST ORDERABLE S Performing Organization Address City/State/ZIP Code Phon e Number [address] CERNER MILLENNIUM EKG 12 Lead (08/27/2010 9:46 AM EDT) Component Value Ref Range Test Analysis Performed Pathologis t Method Time At Signature Ventricular rate 100 BPM MUSE SYSTEM Atrial Rate 100 BPM MUSE SYSTEM P-R Interval 166 ms MUSE SYSTEM QRS Duration 80 ms MUSE SYSTEM Q-T Interval 348 ms MUSE SYSTEM QTC Calculated 448 ms MUSE SYSTEM (Bezet) Calculated P [place] 70 degrees MUSE SYSTEM Calculated R [place] 58 degrees MUSE SYSTEM Calculated T [place] 67 degrees MUSE SYSTEM INTERPRETATION Normal sinus rhythm MUSE SYSTEM Nonspecific T wave abnormality Abnormal ECG When compared with ECG of 24-AUG-2010 11:48, QT has lengthened Confirmed by MD DAWIT, ROCHELLE ([id number]) on 08/27/2010 3:18:56 PM Specimen Anatomical Collection Method Collection Time Receive d Time (Source) Location / / Volume Laterality 08/27/2010 9:46 AM 1 3:18 EDT PM EDT Benson Leahy MD ECG ORDERABLES Performing Organization Address City/State/ZIP Code Phon e Number MUSE SYSTEM (ABNORMAL) REFLEX LAB-BLOOD GAS 2 ARTERIAL (08/27/2010 8:32 AM EDT) Analysis Performed At Patho logist Time Signature pH Art 7.41 CERNER MILLENNIUM pCO2 Art 43 mmHg CERNER MILLENNIUM pO2 Art 63 (L) mmHg CERNER MILLENNIUM HCO3 Art 26.6 (H) mmol/L CERNER MILLENNIUM BE Art 2.0 mmol/L CERNER MILLENNIUM Hgb Blood Gas 10.0 (L) gm/dL CERNER MILLENNIUM Comment: Total Hemoglobin (in gm/dL) ?Based on [facility] [place] ran ges: ?Age ?Referen ce Range Less than 3 days ?14.5 to 22.5 3 days to 2 weeks ? 12.5 to 20.5 2 weeks to 1 month ?10.0 to 18.0 1 to 6 months ?9.4 to 14 .0 6 months to 2 years ? 10.5 to 13.5 2 to 6 years ?11.5 to 13 .5 6 to 12 years ? 11.5 to 15. 5 12 to 18 years (female) 12.0 to 16.0 ? (male) ?? 13.0 to 16.0 > 18 years ? (female) 11.2 to 15.7 ? (male) ?? 13.7 to 17.5 O2HB Art 91.4 (L) % CERNER MILLENNIUM COHB Art 0.8 % CERNER MILLENNIUM Comment: Nonsmokers: 0.5-1.5% COHB Smokers: Variable, but usually less than 10% Toxic: 20-30% COHB Lethal: Greater than 60% COHB METHB Art 0.2 % CERNER MILLENNIUM Na Whole Blood 133 (L) mmol/L CERNER MILLENNI UM K Whole Blood 4.2 mmol/L CERNER MILLENNIU M Comment: Please note: Patients with WBC >100,000 may have falsely elevated Potassium levels. Contact the Clinical Chemistry L aboratory if there are any questions. ICa Whole Blood 1.23 mmol/L CERNER MILLENN IUM Comment: Reference Ranges: ?? < 19 yrs: 1.22 - 1.37 mmol/L ? Adults: 1.15 - 1.33 mmol/L Note: ??Total bilirubin higher than 20 m g/dL may lead to falsely low ionized calcium. CL Whole Blood 103 mmol/L CERNER MILLENNI UM Gluc Whole Bld 130 mg/dL CERNER MILLENNI UM Comment: Diabetes: >=200 mg/dL plus symp toms. FIO2 Art 40 % CERNER MILLENNIUM PF Ratio Art 158 CERNER MILLENNIUM Specimen Anatomical Collection Method Collection Time Receive d Time (Source) Location / / Volume Laterality Blood specimen 08/27/2010 8:32 AM 011 8:32 (specimen) EDT AM EDT Benson Lehay MD CHEMISTRY ORDERABLES Performing Organization Address City/State/[place] [address] CERNER MILLENNIUM XR CHEST PA OR AP- 1 VIEW (08/27/2010 7:02 AM EDT) Anatomical Region Laterality Modality Chest N/A Radiographic Imaging Specimen (Source) Anatomical Collection Method Collection Time Re ceived Time Location / / Volume Laterality 08/27/2010 7:02 AM EDT Impressions 08/28/2010 12:59 PM EDT IMPRESSION: ?? 1. ??Stable support lines and tubes. ?? 2. ??Stable bilateral pulmonary opacitie s, likely representing pleural effusions and underlying airspace disease. Narrative 08/28/2010 12:59 PM EDT AP VIEW OF THE CHEST, 08/27/10: ?? INDICATION: ??Desaturation, increased O2 requirement. ?? COMPARISON: ??08/26/10. ?? FINDINGS: ??Endotracheal tube terminates approximately 5 cm above the daniel. ?? Enteric tube crosses the diaphragm, tip not visualized. ??Right upper extremity PICC terminates at the lower SVC. ??Ther e is no significant change in bilateral diffuse lung opacities. ??There is no de finite pneumothorax. ??The cardiac silhouette is grossly stable. ?? Procedure Note Neto Aldridge MD - 08/28/2010Formattin g of this note might be different from the original. AP VIEW OF THE CHEST, 08/27/10: INDICATION: Desaturation, increased O2 r equirement. COMPARISON: 08/26/10. FINDINGS: Endotracheal tube terminates a pproximately 5 cm above the daniel. Enteric tube crosses the diaphragm, tip not visualized. Right upper extremity PICC terminates at the lower SVC. There is no significant change in bilateral diffuse lung opacities. There is no defi nite pneumothorax. The cardiac silhouette is grossly stable. IMPRESSION IMPRESSION: 1. Stable support lines and tubes. 2. Stable bilateral pulmonary opacities, likely representing pleural effusions and underlying airspace disease. Wilber Vila MD IMG DX ORDERABLES POCT GLUCOSE LAB USE ONLY (08/27/2010 1:55 AM EDT) P athologist Signature POC Glucose 107 60 - 199 CERNER mg/dL [facility] Comment: Supplemental ranges: <110 mg/dL before meals <200 mg/dL all other times of the day Specimen Anatomical Collection Method Collection Time Receive d Time (Source) Location / / Volume Laterality Blood specimen 08/27/2010 1:55 AM 011 1:55 (specimen) EDT AM EDT Benson Leahy MD POINT OF CARE TEST ORDERABLE S Performing Organization Address City/State/ZIP Code Phon e Number [place] [id number] CERNER MILLENNIUM (ABNORMAL) REFLEX LAB-A-DIFF (08/27/2010 1:50 AM EDT) [facility] Method Time Signature Neutrophils % 76.8 (H) 34.0 - CERNER 71.0 % MILLENNIUM Neutr Abs (ANC) 6.05 1.50 - CERNER 6.30 MILLENNIUM x10(3)/mc L Lymphocytes % 9.9 (L) 19.0 - CERNER 53.0 % MILLENNIUM Lymphocytes Abs 0.8 (L) 1.0 - 3.6 CERNER x10(3)/mc MILLENNIUM L Monocytes % 10.4 4.0 - CERNER 13.0 % MILLENNIUM Monocyte Abs 0.8 0.2 - 1.0 CERNER x10(3)/mc MILLENNIUM L Eosinophils % 2.3 0.0 - 7.0 CERNER % MILLENNIUM Eosinophils Abs 0.2 0.0 - 0.5 CERNER x10(3)/mc MILLENNIUM L Basophils % 0.3 0.0 - 2.0 CERNER % MILLENNIUM Basophils Abs 0.0 0.0 - 0.2 CERNER x10(3)/mc MILLENNIUM L Immature Gran % 0.30 0.00 - CERNER 0.66 % MILLENNIUM Comment: Immature granulocytes(IG's)percentage an d absolute count will include metamyelocytes, myelocytes, and promyelo cytes. Blood smears from CBCs yielding IG's will be scanned manually for concor dance. If this scan disagrees with the automated IG or if promyelocytes are not ed, a manual differential will be performed. Liss Gran Abs 0.02 0.00 - 0.05 x10(3)/mcL CER NER MILLENNIUM Specimen Anatomical Collection Method Collection Time Receive d Time (Source) Location / / Volume Laterality Blood specimen 08/27/2010 1:50 AM 011 2:02 (specimen) EDT AM EDT Benson Leahy MD HEMATOLOGY ORDERABLES Performing Organization Address City/State/ZIP Code Phon e [place] [address] CERNER MILLENNIUM (ABNORMAL) Basic metabolic panel (non-fasting) (08/27/2010 1:50 AM EDT) P athologist Signature Glucose Lvl 111 60 - 199 CERNER mg/dL MILLENNIUM Comment: Diabetes: >=200 mg/dL plus symp toms BUN 21 (H) 8 - 18 mg/dL CERNER MILLENNIUM Creatinine 0.37 (L) 0.70 - 1.20 mg/dL CERNER MILL ENNIUM Sodium 132 (L) 135 - 145 mmol/L CERNER ORLY NIUM Potassium 3.9 3.5 - 5.0 mmol/L CERNER ORLY NIUM Comment: Please note: ??Patients with WBC >100,00 0 may have falsely elevated Potassium levels. ??For accurate Potassium quantif ication in these patients send serum separator tube (gold top) for subsequent determinations. ??Contact the Clinical Chemistry Laboratory if there are any qu estions. Chloride 99 98 - 107 mmol/L CERNER MILLENN IUM CO2 27 22 - 31 mmol/L CERNER MILLENNI UM Anion Gap 6 5 - 15 mmol/L CERNER MILLENNIU M Calcium 7.9 (L) 8.5 - 10.5 mg/dL CERNER ORLY NIUM Estimated GFR >60 >=60 CERNER MILLENNIU M Comment: The National Kidney Disease Education Pr ogram (NKDEP) has recommended all laboratories report estimated GFR (eGFR) along with plasma creatinine measurements to assist you with recognit ion of early kidney disease. Caveats: ??Plasma creatinine should be a t steady-state (unchanged within the past week). For patient s multiply eGFR by 1.2.MDRD equation has not been validated for pediatric pat ients and is only valid for patients with age >= 18 years. At present, NKDEP does NOT recommend usi ng the MDRD equation for drug dosing purposes and pharmacists should continue to use their current dosing methods. In addition, numerical eGFR values great er than 60 ml/min/1.73 square meters should be treated as > 60, and not an ex act number due to greater inaccuracies at these higher values. Per NKDEP, they classify normal renal function as any GFR >60ml/min/1.73 square meters; chronic kidney disease wh en GFR <60, and renal failure when GFR <15. ??This calculation may not be valid for patients with atypical muscle mass (very lean or obese), acute renal failur e, and in patients with diabetic kidney disease. References: http://nkdep.nih.gov/resources/NKDEP_Sug gestn4Labs_0606_508.pdf http://www.kidney.org/professionals/kls/ pdf/faq_gfr.pdf Specimen Anatomical Collection Method Collection Time Receive d Time (Source) Location / / Volume Laterality Blood specimen 08/27/2010 1:50 AM 011 2:02 (specimen) EDT AM EDT Zeke Richter MD CHEMISTRY ORDERABLES Performing Organization Address City/State/[place] [address] CERNER MILLENNIUM (ABNORMAL) CBC (with Diff) (08/27/2010 1:50 AM EDT) P athologist Signature WBC 7.9 4.0 - 10.0 CERNER x10(3)/mcL MILLENNIUM RBC 3.11 (L) 3.93 - CERNER 5.22 MILLENNIUM x10(6)/mcL Hemoglobin 8.9 (L) 11.2 - CERNER 15.7 gm/dL MILLENNIUM Hematocrit 26.4 (L) 34.0 - CERNER 45.0 % MILLENNIUM MCV 84.9 79.0 - CERNER 94.0 fL MILLENNIUM MCH 28.6 26.6 - CERNER 32.2 pg MILLENNIUM MCHC 33.7 32.0 - CERNER 36.5 gm/dL MILLENNIUM Platelets 444 (H) 145 - 370 CERNER x10(3)/mcL MILLENNIUM RDWSD 49.1 (H) 35.0 - CERNER 46.0 fL MILLENNIUM RDWCV 15.7 (H) 10.9 - CERNER 14.4 % MILLENNIUM MPV 9.6 9.0 - 12.0 CERNER fL MILLENNIUM Specimen Anatomical Collection Method Collection Time Receive d Time (Source) Location / / Volume Laterality Blood specimen 08/27/2010 1:50 AM 011 2:02 (specimen) EDT AM EDT Benson Leahy MD HEMATOLOGY ORDERABLES Performing Organization Address City/[facility]/ZIP Code Phon e Number [address] CERNER MILLENNIUM POCT GLUCOSE LAB USE ONLY (08/26/2010 9:01 PM EDT) P athologist Signature POC Glucose 170 60 - 199 CERNER mg/dL MILLENNIUM Comment: Supplemental ranges: <110 mg/dL before meals <200 mg/dL all other times of the day Specimen Anatomical Collection Method Collection Time Receive d Time (Source) Location / / Volume Laterality Blood specimen 08/26/2010 9:01 PM 011 9:01 (specimen) EDT PM EDT Benson Leahy MD POINT OF CARE TEST ORDERABLE S Performing Organization Address City/[facility]/[place] [address] CERNER MILLENNIUM POCT GLUCOSE LAB USE ONLY (08/26/2010 5:58 PM EDT) P athologist Signature POC Glucose 134 60 - 199 CERNER mg/dL MILLENNIUM Comment: Supplemental ranges: <110 mg/dL before meals <200 mg/dL all other times of the day Specimen Anatomical Collection Method Collection Time Receive d Time (Source) Location / / Volume Laterality Blood specimen 08/26/2010 5:58 PM 011 5:58 (specimen) EDT PM EDT Benson Leahy MD POINT OF CARE TEST ORDERABLE S Performing Organization Address City/[facility]/ZIP Code Phon e Number [address] CERNER MILLENNIUM XR chest PA or AP- 1 view (08/26/2010 1:13 PM EDT) Anatomical Region Laterality Modality Chest N/A Radiographic Imaging Specimen (Source) Anatomical Collection Method Collection Time Re ceived Time Location / / Volume Laterality 08/26/2010 1:13 PM EDT Impressions 08/28/2010 8:19 AM EDT IMPRESSION: ?? 1. ??Stable support lines and tubes. ?? 2. ??Stable bilateral pleural effusions and airspace disease. Narrative 08/28/2010 8:19 AM EDT AP VIEW OF THE CHEST, 08/26/10: ?? INDICATION: ?? Ventilation. ?? COMPARISON: ??08/25/10. ?? FINDINGS: ??Endotracheal tube terminates approximately 4 cm above the daniel. ?? Enteric tube crosses the diaphragm, tip not visualized. ??Right upper extremity PICC terminates at the mid SVC. ??Again noted are bilateral hazy lung opacities and pleural effusions. ??Overall, appear ance is not significantly changed from the prior examination. ??There is no def inite pneumothorax. ??The cardiac silhouette is stable. ?? Procedure Note Neto Aldridge MD - 08/28/2010Formattin g of this note might be different from the original. AP VIEW OF THE CHEST, 08/26/10: INDICATION: Ventilation. COMPARISON: 08/25/10. FINDINGS: Endotracheal tube terminates a pproximately 4 cm above the daniel. Enteric tube crosses the diaphragm, tip not visualized. Right upper extremity PICC terminates at the mid SVC. Again no aristeo are bilateral hazy lung opacities and pleural effusions. Overall, appearan ce is not significantly changed from the prior examination. There is no defin ite pneumothorax. The cardiac silhouette is stable. IMPRESSION IMPRESSION: 1. Stable support lines and tubes. 2. Stable bilateral pleural effusions an d airspace disease. Benson Leahy MD IMG DX ORDERABLES POCT GLUCOSE LAB USE ONLY (08/26/2010 11:33 AM EDT) athologist Signature POC Glucose 106 60 - 199 CERNER mg/dL [facility] Comment: Supplemental ranges: <110 mg/dL before meals <200 mg/dL all other times of the day Specimen Anatomical Collection Method Collection Time Receive d Time (Source) Location / / Volume Laterality Blood specimen 08/26/2010 11:33 1 (specimen) AM EDT 11:33 AM EDT Benson Leahy MD POINT OF CARE TEST ORDERABLE S Performing Organization Address City/State/ZIP Code Phon e Number [facility] [place] [address] HOSP[address] LABORATORY Drive CERNER MILLENNIUM POCT GLUCOSE LAB USE ONLY (08/26/2010 7:42 AM EDT) athologist Signature POC Glucose 125 60 - 199 CERNER mg/dL [facility] Comment: Supplemental ranges: <110 mg/dL before meals <200 mg/dL all other times of the day Specimen Anatomical Collection Method Collection Time Receive d Time (Source) Location / / Volume Laterality Blood specimen 08/26/2010 7:42 AM 011 7:42 (specimen) EDT AM EDT Benson Leahy MD POINT OF CARE TEST ORDERABLE S Performing Organization Address City/[facility]/ZIP Code Phon e Number [address] CERNER MILLENNIUM Potassium (08/26/2010 4:15 AM EDT) athologist Signature Potassium 4.7 3.5 - 5.0 CERNER mmol/L [facility] Comment: Please note: ??Patients with WBC >100,00 0 may have falsely elevated Potassium levels. ??For accurate Potassium quantif ication in these patients send serum separator tube (gold top) for subsequent determinations. ??Contact the Clinical Chemistry Laboratory if there are any qu estions. Specimen Anatomical Collection Method Collection Time Receive d Time (Source) Location / / Volume Laterality Blood specimen 08/26/2010 4:15 AM 011 5:51 (specimen) EDT AM EDT Zeke Richter MD CHEMISTRY ORDERABLES Performing Organization Address City/[facility]/[place] [address] CERNER MILLENNIUM POCT GLUCOSE LAB USE ONLY (08/26/2010 4:12 AM EDT) athologist Signature POC Glucose 142 60 - 199 CERNER mg/dL [facility] Comment: Supplemental ranges: <110 mg/dL before meals <200 mg/dL all other times of the day Specimen Anatomical Collection Method Collection Time Receive d Time (Source) Location / / Volume Laterality Blood specimen 08/26/2010 4:12 AM 011 4:12 (specimen) EDT AM EDT Benson Leahy MD POINT OF CARE TEST ORDERABLE S Performing Organization Address City/State/ZIP Code Phon e Number [place] [id number]OSPITAL LAB[address]ORY [address] CERNER MILLENNIUM (ABNORMAL) REFLEX LAB-A-DIFF (08/26/2010 1:40 AM EDT) [facility] Method Time Signature Neutrophils % 81.2 (H) 34.0 - CERNER 71.0 % MILLENNIUM Neutr Abs (ANC) 6.84 (H) 1.50 - CERNER 6.30 MILLENNIUM x10(3)/mc L Lymphocytes % 6.8 (L) 19.0 - CERNER 53.0 % MILLENNIUM Lymphocytes Abs 0.6 (L) 1.0 - 3.6 CERNER x10(3)/mc MILLENNIUM L Monocytes % 8.8 4.0 - CERNER 13.0 % MILLENNIUM Monocyte Abs 0.7 0.2 - 1.0 CERNER x10(3)/mc MILLENNIUM L Eosinophils % 2.4 0.0 - 7.0 CERNER % MILLENNIUM Eosinophils Abs 0.2 0.0 - 0.5 CERNER x10(3)/mc MILLENNIUM L Basophils % 0.4 0.0 - 2.0 CERNER % MILLENNIUM Basophils Abs 0.0 0.0 - 0.2 CERNER x10(3)/mc MILLENNIUM L Immature Gran % 0.40 0.00 - CERNER 0.66 % MILLENNIUM Comment: Immature granulocytes(IG's)percentage an d absolute count will include metamyelocytes, myelocytes, and promyelo cytes. Blood smears from CBCs yielding IG's will be scanned manually for concor dance. If this scan disagrees with the automated IG or if promyelocytes are not ed, a manual differential will be performed. Liss Gran Abs 0.03 0.00 - 0.05 x10(3)/mcL CER NER MILLENNIUM Specimen Anatomical Collection Method Collection Time Receive d Time (Source) Location / / Volume Laterality Blood specimen 08/26/2010 1:40 AM 011 1:43 (specimen) EDT AM EDT Benson Leahy MD HEMATOLOGY ORDERABLES Performing Organization Address City/State/ZIP Code Phon e Number [place] [phone] [facility]OSPITAL LAB[address]ORY [address] CERNER MILLENNIUM (ABNORMAL) Basic Metabolic Panel (non-fasting) (08/26/2010 1:40 AM EDT) P athologist Signature Glucose Lvl 128 60 - 199 CERNER mg/dL MILLENNIUM Comment: Diabetes: >=200 mg/dL plus symp toms BUN 15 8 - 18 mg/dL CERNER MILLENNIUM Creatinine 0.38 (L) 0.70 - 1.20 mg/dL CERNER MILL ENNIUM Sodium 133 (L) 135 - 145 mmol/L CERNER ORLY NIUM Potassium 3.7 3.5 - 5.0 mmol/L CERNER ORLY NIUM Comment: Please note: ??Patients with WBC >100,00 0 may have falsely elevated Potassium levels. ??For accurate Potassium quantif ication in these patients send serum separator tube (gold top) for subsequent determinations. ??Contact the Clinical Chemistry Laboratory if there are any qu estions. Chloride 101 98 - 107 mmol/L CERNER MILLENN IUM CO2 25 22 - 31 mmol/L CERNER MILLENNI UM Anion Gap 7 5 - 15 mmol/L CERNER MILLENNIU M Calcium 7.8 (L) 8.5 - 10.5 mg/dL CERNER ORLY NIUM Estimated GFR >60 >=60 CERNER MILLENNIU M Comment: The National Kidney Disease Education Pr ogram (NKDEP) has recommended all laboratories report estimated GFR (eGFR) along with plasma creatinine measurements to assist you with recognit ion of early kidney disease. Caveats: ??Plasma creatinine should be a t steady-state (unchanged within the past week). For patient s multiply eGFR by 1.2.MDRD equation has not been validated for pediatric pat ients and is only valid for patients with age >= 18 years. At present, NKDEP does NOT recommend usi ng the MDRD equation for drug dosing purposes and pharmacists should continue to use their current dosing methods. In addition, numerical eGFR values great er than 60 ml/min/1.73 square meters should be treated as > 60, and not an ex act number due to greater inaccuracies at these higher values. Per NKDEP, they classify normal renal function as any GFR >60ml/min/1.73 square meters; chronic kidney disease wh en GFR <60, and renal failure when GFR <15. ??This calculation may not be valid for patients with atypical muscle mass (very lean or obese), acute renal failur e, and in patients with diabetic kidney disease. References: http://nkdep.nih.gov/resources/NKDEP_Sug gestn4Labs_0606_508.pdf http://www.kidney.org/professionals/kls/ pdf/faq_gfr.pdf Specimen Anatomical Collection Method Collection Time Receive d Time (Source) Location / / Volume Laterality Blood specimen 08/26/2010 1:40 AM 011 1:43 (specimen) EDT AM EDT Benson Leahy MD CHEMISTRY ORDERABLES Performing Organization Address City/State/[place] [address] CERNER MILLENNIUM (ABNORMAL) CBC (with Diff) (08/26/2010 1:40 AM EDT) P athologist Signature WBC 8.4 4.0 - 10.0 CERNER x10(3)/mcL MILLENNIUM RBC 3.24 (L) 3.93 - CERNER 5.22 MILLENNIUM x10(6)/mcL Hemoglobin 9.4 (L) 11.2 - CERNER 15.7 gm/dL MILLENNIUM Hematocrit 27.4 (L) 34.0 - CERNER 45.0 % MILLENNIUM MCV 84.6 79.0 - CERNER 94.0 fL MILLENNIUM MCH 29.0 26.6 - CERNER 32.2 pg MILLENNIUM MCHC 34.3 32.0 - CERNER 36.5 gm/dL MILLENNIUM Platelets 412 (H) 145 - 370 CERNER x10(3)/mcL MILLENNIUM RDWSD 50.4 (H) 35.0 - CERNER 46.0 fL MILLENNIUM RDWCV 16.3 (H) 10.9 - CERNER 14.4 % MILLENNIUM MPV 9.8 9.0 - 12.0 CERNER fL MILLENNIUM Specimen Anatomical Collection Method Collection Time Receive d Time (Source) Location / / Volume Laterality Blood specimen 08/26/2010 1:40 AM 011 1:43 (specimen) EDT AM EDT Benson Leahy MD HEMATOLOGY ORDERABLES Performing Organization Address City/[facility] [place] [address] CERNER MILLENNIUM POCT GLUCOSE LAB USE ONLY (08/26/2010 12:38 AM EDT) athologist Signature POC Glucose 117 60 - 199 CERNER mg/dL MILLENNIUM Comment: Supplemental ranges: <110 mg/dL before meals <200 mg/dL all other times of the day Specimen Anatomical Collection Method Collection Time Receive d Time (Source) Location / / Volume Laterality Blood specimen 08/26/2010 12:38 1 (specimen) AM EDT 12:38 AM EDT Benson Leahy MD POINT OF CARE TEST ORDERABLE S Performing Organization Address [facility] [place] [address] CERNER MILLENNIUM Potassium (08/25/2010 8:20 PM EDT) athologist Signature Potassium 4.5 3.5 - 5.0 CERNER mmol/L MILLENNIUM Comment: Please note: ??Patients with WBC >100,00 0 may have falsely elevated Potassium levels. ??For accurate Potassium quantif ication in these patients send serum separator tube (gold top) for subsequent determinations. ??Contact the Clinical Chemistry Laboratory if there are any qu estions. Specimen Anatomical Collection Method Collection Time Receive d Time (Source) Location / / Volume Laterality Blood specimen 08/25/2010 8:20 PM 011 8:24 (specimen) EDT PM EDT Zeke Richter MD CHEMISTRY ORDERABLES Performing Organization Address City/[facility] [place] [address] CERNER MILLENNIUM POCT GLUCOSE LAB USE ONLY (08/25/2010 7:51 PM EDT) athologist Signature POC Glucose 101 60 - 199 CERNER mg/dL MILLENNIUM Comment: Supplemental ranges: <110 mg/dL before meals <200 mg/dL all other times of the day Specimen Anatomical Collection Method Collection Time Receive d Time (Source) Location / / Volume Laterality Blood specimen 08/25/2010 7:51 PM 011 7:51 (specimen) EDT PM EDT Benson Leahy MD POINT OF CARE TEST ORDERABLE S Performing Organization Address City/[facility] [place] [address] CERNER MILLENNIUM POCT GLUCOSE LAB USE ONLY (08/25/2010 5:01 PM EDT) athologist Signature POC Glucose 111 60 - 199 CERNER mg/dL MILLENNIUM Comment: Supplemental ranges: <110 mg/dL before meals <200 mg/dL all other times of the day Specimen Anatomical Collection Method Collection Time Receive d Time (Source) Location / / Volume Laterality Blood specimen 08/25/2010 5:01 PM 011 5:01 (specimen) EDT PM EDT Benson Leahy MD POINT OF CARE TEST ORDERABLE S Performing Organization Address [facility] Phon e Number [address] CERNER MILLENNIUM Potassium (08/25/2010 2:43 PM EDT) athologist Signature Potassium 3.7 3.5 - 5.0 CERNER mmol/L MILLENNIUM Comment: Please note: ??Patients with WBC >100,00 0 may have falsely elevated Potassium levels. ??For accurate Potassium quantif ication in these patients send serum separator tube (gold top) for subsequent determinations. ??Contact the Clinical Chemistry Laboratory if there are any qu estions. Specimen Anatomical Collection Method Collection Time Receive d Time (Source) Location / / Volume Laterality Blood specimen 08/25/2010 2:43 PM 011 2:43 (specimen) EDT PM EDT Zeke Richter MD CHEMISTRY ORDERABLES Performing Organization Address City/[facility]/ZIP [facility] Phon e Number [address] CERNER MILLENNIUM POCT GLUCOSE LAB USE ONLY (08/25/2010 11:58 AM EDT) P athologist Signature POC Glucose 122 60 - 199 CERPERRY mg/dL [facility] Comment: Supplemental ranges: <110 mg/dL before meals <200 mg/dL all other times of the day Specimen Anatomical Collection Method Collection Time Receive d Time (Source) Location / / Volume Laterality Blood specimen 08/25/2010 11:58 1 (specimen) AM EDT 11:58 AM EDT Benson Leahy MD POINT OF CARE TEST ORDERABLE S Performing Organization Address City/State/[place] [address] DAVID HUNTLEYOmnisens XR chest PA or AP- 1 view (08/25/2010 9:49 AM EDT) Anatomical Region Laterality Modality Chest N/A Radiographic Imaging Specimen (Source) Anatomical Collection Method Collection Time Re ceived Time Location / / Volume Laterality 08/25/2010 9:49 AM EDT Narrative 08/28/2010 1:27 PM EDT CHEST X-RAY: ?? HISTORY: ??Increased sputum production. ?? TECHNIQUE: ??Portable chest at 0946 hour s. ?? COMPARISON: ??Compared to 08/21. ?? FINDINGS: ??The right PICC line is in th e superior vena cava. ??NG tube terminates in the stomach. ??ET tube ter minates 6.6 cm above the daniel. ??The lungs appear worse with spreading airspa ce process suggestive of pulmonary edema, ARDS, or diffuse pneumonia. ??In addition, there is collapse of the left lower retrocardiac lung. ??There are pro bably small bilateral pleural effusions. ?? CONCLUSION: ?? 1. ??Worsening in bilateral airspace dis ease. ??Persistent left lower lobe collapse. ?? 2. ??Life support devices as above. Procedure Note Perry Marrufo MD - 08/28/2010Formatt ing of this note might be different from the original. CHEST X-RAY: HISTORY: Increased sputum production. TECHNIQUE: Portable chest at 0946 hours. COMPARISON: Compared to 08/21. FINDINGS: The right PICC line is in the superior vena cava. NG tube terminates in the stomach. ET tube termi nates 6.6 cm above the daniel. The lungs appear worse with spreading airspa ce process suggestive of pulmonary edema, ARDS, or diffuse pneumonia. In ad dition, there is collapse of the left lower retrocardiac lung. There are proba bridgett small bilateral pleural effusions. CONCLUSION: 1. Worsening in bilateral airspace disea se. Persistent left lower lobe collapse. 2. Life support devices as above. Benson Leahy MD IMG DX ORDERABLES Lower Respiratory Culture Tracheal Aspirate (08/25/2010 8:40 AM EDT) Component Value Ref Test Analysis Performed At [facility] Method Time Signature Lower CERNER Respiratory ? Patient Name: VINOD , [place] R ?Ordered By: BENSON LEAHY [facility] Culture ? MR#: [id number] ?LOC: ??ICUS ? /Sex: ??1945 (64 years), ? Female ? PROCEDURE: Lower Respiratory Culture ?SOURCE: Trach Asp ? COLLECTED: 08/25/2010 08:40 ? STARTED: 08/25/2010 08:53 ? STAINS / PREPARATIONS ? Gram Stain Report ? Verified:08/25/2010 14:49 ? Moderate White Blood Cells seen ? Many squamous epithelial cells seen ? Many mixed bacterial morphotypes suggestive of normal upper respiratory ? shama ? Specimen unsatisfacto ry for Culture based on Gram Stain findings indicating ? significant oral ? contamination, suggest repeat specimen of improved qu ality. ? Specimen (Source) Anatomical Collection Method Collection Time Re ceived Time Location / / Volume Laterality Specimen from 08/25/2010 8:40 08/25/2010 8:53 trachea obtained AM EDT AM EDT by aspiration (specimen) Benson Leahy MD MICROBIOLOGY - GENERAL ORDER RITO Performing Organization Address City/[facility]/ZIP [facility] Phon e Number [address] CERNER MILLENNIUM POCT GLUCOSE LAB USE ONLY (08/25/2010 8:35 AM EDT) athologist Signature POC Glucose 111 60 - 199 CERNER mg/dL [facility] Comment: Supplemental ranges: <110 mg/dL before meals <200 mg/dL all other times of the day Specimen Anatomical Collection Method Collection Time Receive d Time (Source) Location / / Volume Laterality Blood specimen 08/25/2010 8:35 AM 011 8:35 (specimen) EDT AM EDT Benson Leahy MD POINT OF CARE TEST ORDERABLE S Performing Organization Address [facility] Phon e Number [address] CERNER MILLENNIUM Potassium (08/25/2010 7:20 AM EDT) athologist Signature Potassium 4.0 3.5 - 5.0 CERNER mmol/L [facility] Comment: Please note: ??Patients with WBC >100,00 0 may have falsely elevated Potassium levels. ??For accurate Potassium quantif ication in these patients send serum separator tube (gold top) for subsequent determinations. ??Contact the Clinical Chemistry Laboratory if there are any qu estions. Specimen Anatomical Collection Method Collection Time Receive d Time (Source) Location / / Volume Laterality Blood specimen 08/25/2010 7:20 AM 011 7:24 (specimen) EDT AM EDT Zeke Richter MD CHEMISTRY ORDERABLES Performing Organization Address City/[facility]/ZIP Code Phon e Number [address] CERNER MILLENNIUM (ABNORMAL) Hemogram (08/25/2010 6:15 AM EDT) athologist Signature WBC 9.3 4.0 - 10.0 CERNER x10(3)/mcL MILLENNIUM RBC 3.34 (L) 3.93 - CERNER 5.22 MILLENNIUM x10(6)/mcL Hemoglobin 9.4 (L) 11.2 - CERNER 15.7 gm/dL MILLENNIUM Hematocrit 28.6 (L) 34.0 - CERNER 45.0 % MILLENNIUM MCV 85.6 79.0 - CERNER 94.0 fL MILLENNIUM MCH 28.1 26.6 - CERNER 32.2 pg MILLENNIUM MCHC 32.9 32.0 - CERNER 36.5 gm/dL MILLENNIUM Platelets 419 (H) 145 - 370 CERNER x10(3)/mcL MILLENNIUM RDWSD 47.4 (H) 35.0 - CERNER 46.0 fL MILLENNIUM RDWCV 15.0 (H) 10.9 - CERNER 14.4 % MILLENNIUM MPV 9.8 9.0 - 12.0 CERNER fL MILLENNIUM Specimen Anatomical Collection Method Collection Time Receive d Time (Source) Location / / Volume Laterality Blood specimen 08/25/2010 6:15 AM 011 6:29 (specimen) EDT AM EDT Benson Leahy MD HEMATOLOGY ORDERABLES Performing Organization Address City/State/[place] [address] [facility] Transfuse RBC (08/25/2010 5:37 AM EDT) Benson Leahy MD NURSING TREATMENT ORDERABLES - BLOOD ADMIN POCT GLUCOSE LAB USE ONLY (08/25/2010 4:58 AM EDT) athologist Signature POC Glucose 115 60 - 199 CERNER mg/dL [facility] Comment: Supplemental ranges: <110 mg/dL before meals <200 mg/dL all other times of the day Specimen Anatomical Collection Method Collection Time Receive d Time (Source) Location / / Volume Laterality Blood specimen 08/25/2010 4:58 AM 07/02/2 011 4:58 (specimen) EDT AM EDT Benson Leahy MD POINT OF CARE TEST ORDERABLE S Performing Organization Address City/[facility]/ZIP [facility] Phon e Number [address] EMILEENER YUKOENNIUM Transfuse RBC (08/25/2010 4:47 AM EDT) Benson Leahy MD NURSING TREATMENT ORDERABLES - BLOOD ADMIN REFLEX LAB-ABORH TYPE MANUAL (08/25/2010 3:08 AM EDT) Analysis Performed At Patho logist Time Signature Expires at [id number] [facility] [id number] on: MILLENNIUM ABORh Type A Pos [facility] Specimen Anatomical Collection Method Collection Time Receive d Time (Source) Location / / Volume Laterality Blood specimen 08/25/2010 3:08 AM 011 3:08 (specimen) EDT AM EDT Benson Leahy MD BLOOD BANK ORDERABLES Performing Organization Address [facility]/ZIP Code Phon e Number [address] CERPERRY MILLENNIUM PREPARE RBC (08/25/2010 2:18 AM EDT) P athologist Signature Dispensed? Yes [facility] Specimen Anatomical Collection Method Collection Time Receive d Time (Source) Location / / Volume Laterality Blood specimen 08/25/2010 2:18 AM 011 2:18 (specimen) EDT AM EDT Benson Leahy MD BLOOD BANK ORDERABLES Performing Organization Address City/[facility]/ZIP Code Phon e Number [address] [facility] MILL[facility]UM Prepare RBC (08/25/2010 2:10 AM EDT) P athologist Signature Dispensed? Yes [facility] Specimen Anatomical Collection Method Collection Time Receive d Time (Source) Location / / Volume Laterality Blood specimen 08/25/2010 2:10 AM 011 2:11 (specimen) EDT AM EDT Benson Leahy MD BLOOD BANK ORDERABLES Performing Organization Address City/[facility]/[place] [address] CERNER MILLENNIUM (ABNORMAL) REFLEX LAB-A-DIFF (08/25/2010 1:00 AM EDT) [facility] Method Time Signature Neutrophils % 71.0 34.0 - CERNER 71.0 % MILLENNIUM Neutr Abs (ANC) 4.32 1.50 - CERNER 6.30 MILLENNIUM x10(3)/mc L Lymphocytes % 16.0 (L) 19.0 - CERNER 53.0 % MILLENNIUM Lymphocytes Abs 1.0 1.0 - 3.6 CERNER x10(3)/mc MILLENNIUM L Monocytes % 9.9 4.0 - CERNER 13.0 % MILLENNIUM Monocyte Abs 0.6 0.2 - 1.0 CERNER x10(3)/mc MILLENNIUM L Eosinophils % 2.6 0.0 - 7.0 CERNER % MILLENNIUM Eosinophils Abs 0.2 0.0 - 0.5 CERNER x10(3)/mc MILLENNIUM L Basophils % 0.3 0.0 - 2.0 CERNER % MILLENNIUM Basophils Abs 0.0 0.0 - 0.2 CERNER x10(3)/mc MILLENNIUM L Immature Gran % 0.20 0.00 - CERNER 0.66 % MILLENNIUM Comment: Immature granulocytes(IG's)percentage an d absolute count will include metamyelocytes, myelocytes, and promyelo cytes. Blood smears from CBCs yielding IG's will be scanned manually for concor dance. If this scan disagrees with the automated IG or if promyelocytes are not ed, a manual differential will be performed. Liss Gran Abs 0.01 0.00 - 0.05 x10(3)/mcL CER NER MILLENNIUM Specimen Anatomical Collection Method Collection Time Receive d Time (Source) Location / / Volume Laterality Blood specimen 08/25/2010 1:00 AM 011 1:30 (specimen) EDT AM EDT Benson Leahy MD HEMATOLOGY ORDERABLES Performing Organization Address City/State/ZIP Code Phon e Number [address] CERNER MILLENNIUM TRIGLYCERIDE (08/25/2010 1:00 AM EDT) athologist Signature Triglycerides 132 <=149 CERNER mg/dL [facility] Comment: Reference Range: Normal triglycerides: ??<150 mg/dL Borderline high: ??150-199 mg/dL High: ??200-499 mg/dL Very high: ??>qh=503 mg/dL ROLAND 2001; 285(19):[id number] Specimen Anatomical Collection Method Collection Time Receive d Time (Source) Location / / Volume Laterality Blood specimen 08/25/2010 1:00 AM 011 1:20 (specimen) EDT AM EDT Benson Leahy MD CHEMISTRY ORDERABLES Performing Organization Address City/[facility]/ZIP Code Phon e Number [address] [facility] REFLEX LAB-ANTIBODY SCREEN (08/25/2010 1:00 AM EDT) Analysis [facility] Signature Ab Screen Negative [facility] Expires at [id number] CERNER 9 on: [facility] Specimen Anatomical Collection Method Collection Time Receive d Time (Source) Location / / Volume Laterality Blood specimen 08/25/2010 1:00 AM 011 1:20 (specimen) EDT AM EDT Ramsey Bailey MD BLOOD BANK ORDERABLES Performing Organization Address City/[facility]/[place] [address] [facility] REFLEX LAB-ABO/RH TYPING (08/25/2010 1:00 AM EDT) P athologist Signature ABORh Type A Pos [facility] Specimen Anatomical Collection Method Collection Time Receive d Time (Source) Location / / Volume Laterality Blood specimen 08/25/2010 1:00 AM 011 1:20 (specimen) EDT AM EDT Ramsey Bailey MD BLOOD BANK ORDERABLES Performing Organization Address City/[facility]/[place] [address] [facility] (ABNORMAL) Basic Metabolic Panel (non-fasting) (08/25/2010 1:00 AM EDT) P athologist Signature Glucose Lvl 95 60 - 199 CERNER mg/dL MILLENNIUM Comment: Diabetes: >=200 mg/dL plus symp toms BUN 11 8 - 18 mg/dL CERNER MILLENNIUM Creatinine 0.41 (L) 0.70 - 1.20 mg/dL CERNER MILL ENNIUM Sodium 135 135 - 145 mmol/L CERNER ORLY NIUM Potassium 3.6 3.5 - 5.0 mmol/L CERNER ORLY NIUM Comment: Please note: ??Patients with WBC >100,00 0 may have falsely elevated Potassium levels. ??For accurate Potassium quantif ication in these patients send serum separator tube (gold top) for subsequent determinations. ??Contact the Clinical Chemistry Laboratory if there are any qu estions. Chloride 103 98 - 107 mmol/L CERNER MILLENN IUM CO2 25 22 - 31 mmol/L CERNER MILLENNI UM Anion Gap 7 5 - 15 mmol/L CERNER MILLENNIU M Calcium 7.7 (L) 8.5 - 10.5 mg/dL CERNER ORLY NIUM Estimated GFR >60 >=60 CERNER MILLENNIU M Comment: The National Kidney Disease Education Pr ogram (NKDEP) has recommended all laboratories report estimated GFR (eGFR) along with plasma creatinine measurements to assist you with recognit ion of early kidney disease. Caveats: ??Plasma creatinine should be a t steady-state (unchanged within the past week). For patient s multiply eGFR by 1.2.MDRD equation has not been validated for pediatric pat ients and is only valid for patients with age >= 18 years. At present, NKDEP does NOT recommend usi ng the MDRD equation for drug dosing purposes and pharmacists should continue to use their current dosing methods. In addition, numerical eGFR values great er than 60 ml/min/1.73 square meters should be treated as > 60, and not an ex act number due to greater inaccuracies at these higher values. Per NKDEP, they classify normal renal function as any GFR >60ml/min/1.73 square meters; chronic kidney disease wh en GFR <60, and renal failure when GFR <15. ??This calculation may not be valid for patients with atypical muscle mass (very lean or obese), acute renal failur e, and in patients with diabetic kidney disease. References: http://nkdep.nih.gov/resources/NKDEP_Sug gestn4Labs_0606_508.pdf http://www.kidney.org/professionals/kls/ pdf/faq_gfr.pdf Specimen Anatomical Collection Method Collection Time Receive d Time (Source) Location / / Volume Laterality Blood specimen 08/25/2010 1:00 AM 011 1:20 (specimen) EDT AM EDT Benson Leahy MD CHEMISTRY ORDERABLES Performing Organization Address City/[facility] [place] [address] CERNER MILLENNIUM (ABNORMAL) CBC (with Diff) (08/25/2010 1:00 AM EDT) P athologist Signature WBC 6.1 4.0 - 10.0 CERNER x10(3)/mcL MILLENNIUM RBC 2.32 (L) 3.93 - CERNER 5.22 MILLENNIUM x10(6)/mcL Hemoglobin 6.8 (L) 11.2 - CERNER 15.7 gm/dL MILLENNIUM Hematocrit 20.3 (L) 34.0 - CERNER 45.0 % MILLENNIUM MCV 87.5 79.0 - CERNER 94.0 fL MILLENNIUM MCH 29.3 26.6 - CERNER 32.2 pg MILLENNIUM MCHC 33.5 32.0 - CERNER 36.5 gm/dL MILLENNIUM Platelets 405 (H) 145 - 370 CERNER x10(3)/mcL MILLENNIUM RDWSD 47.5 (H) 35.0 - CERNER 46.0 fL MILLENNIUM RDWCV 15.0 (H) 10.9 - CERNER 14.4 % MILLENNIUM MPV 9.8 9.0 - 12.0 CERNER fL MILLENNIUM Specimen Anatomical Collection Method Collection Time Receive d Time (Source) Location / / Volume Laterality Blood specimen 08/25/2010 1:00 AM 011 1:30 (specimen) EDT AM EDT Benson Leahy MD HEMATOLOGY ORDERABLES Performing Organization Address City/State/[place] [address] CERNER MILLENNIUM POCT GLUCOSE LAB USE ONLY (08/25/2010 12:10 AM EDT) P athologist Signature POC Glucose 104 60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 AM EDT Benson Leahy MD HEMATOLOGY ORDERABLES Performing Organization Address City/State/[place] [address] CERNER MILLENNIUM (ABNORMAL) CBC (with Diff) (08/23/2010 3:00 AM EDT) P athologist Signature WBC 9.7 4.0 - 10.0 CERNER x10(3)/mcL MILLENNIUM RBC 2.89 (L) 3.93 - CERNER 5.22 MILLENNIUM x10(6)/mcL Hemoglobin 8.3 (L) 11.2 - CERNER 15.7 gm/dL MILLENNIUM Hematocrit 25.0 (L) 34.0 - CERNER 45.0 % MILLENNIUM MCV 86.5 79.0 - CERNER 94.0 fL MILLENNIUM MCH 28.7 26.6 - CERNER 32.2 pg MILLENNIUM MCHC 33.2 32.0 - CERNER 36.5 gm/dL MILLENNIUM Platelets 391 (H) 145 - 370 CERNER x10(3)/mcL MILLENNIUM RDWSD 49.8 (H) 35.0 - CERNER 46.0 fL MILLENNIUM RDWCV 15.7 (H) 10.9 - CERNER 14.4 % MILLENNIUM MPV 9.8 9.0 - 12.0 CERNER fL MILLENNIUM Specimen Anatomical Collection Method Collection Time Receive d Time (Source) Location / / Volume Laterality Blood specimen 08/23/2010 3:00 AM 011 3:03 (specimen) EDT AM EDT Benson Leahy MD HEMATOLOGY ORDERABLES Performing Organization Address City/State/[place] [address] CERNER MILLENNIUM (ABNORMAL) Basic Metabolic Panel (non-fasting) (08/23/2010 3:00 AM EDT) P athologist Signature Glucose Lvl 132 60 - 199 CERNER mg/dL MILLENNIUM Comment: Diabetes: >=200 mg/dL plus symp toms BUN 17 8 - 18 mg/dL CERNER MILLENNIUM Creatinine 0.40 (L) 0.70 - 1.20 mg/dL CERNER MILL ENNIUM Sodium 137 135 - 145 mmol/L CERNER ORLY NIUM Potassium 3.9 3.5 - 5.0 mmol/L CERNER ORLY NIUM Comment: Please note: ??Patients with WBC >100,00 0 may have falsely elevated Potassium levels. ??For accurate Potassium quantif ication in these patients send serum separator tube (gold top) for subsequent determinations. ??Contact the Clinical Chemistry Laboratory if there are any qu estions. Chloride 104 98 - 107 mmol/L CERNER MILLENN IUM CO2 23 22 - 31 mmol/L CERNER MILLENNI UM Anion Gap 10 5 - 15 mmol/L CERNER MILLENNIU M Calcium 8.4 (L) 8.5 - 10.5 mg/dL CERNER ORLY NIUM Estimated GFR >60 >=60 CERNER MILLENNIU M Comment: The National Kidney Disease Education Pr ogram (NKDEP) has recommended all laboratories report estimated GFR (eGFR) along with plasma creatinine measurements to assist you with recognit ion of early kidney disease. Caveats: ??Plasma creatinine should be a t steady-state (unchanged within the past week). For patient s multiply eGFR by 1.2.MDRD equation has not been validated for pediatric pat ients and is only valid for patients with age >= 18 years. At present, NKDEP does NOT recommend usi ng the MDRD equation for drug dosing purposes and pharmacists should continue to use their current dosing methods. In addition, numerical eGFR values great er than 60 ml/min/1.73 square meters should be treated as > 60, and not an ex act number due to greater inaccuracies at these higher values. Per NKDEP, they classify normal renal function as any GFR >60ml/min/1.73 square meters; chronic kidney disease wh en GFR <60, and renal failure when GFR <15. ??This calculation may not be valid for patients with atypical muscle mass (very lean or obese), acute renal failur e, and in patients with diabetic kidney disease. References: http://nkdep.nih.gov/resources/NKDEP_Sug gestn4Labs_0606_508.pdf http://www.kidney.org/professionals/kls/ pdf/faq_gfr.pdf Specimen Anatomical Collection Method Collection Time Receive d Time (Source) Location / / Volume Laterality Blood specimen 08/23/2010 3:00 AM 011 3:03 (specimen) EDT AM EDT Benson Leahy MD CHEMISTRY ORDERABLES Performing Organization Address City/State/ZIP Code Phon e Number [place] [phone] CERNER MILLENNIUM Phosphorus (08/23/2010 3:00 AM EDT) athologist Signature Phosphorus 3.6 2.5 - 4.5 CERNER mg/dL [facility] Specimen Anatomical Collection Method Collection Time Receive d Time (Source) Location / / Volume Laterality Blood specimen 08/23/2010 3:00 AM 011 3:03 (specimen) EDT AM EDT Zeke Richter MD CHEMISTRY ORDERABLES Performing Organization Address City/State/ZIP Code Phon e Number [address] CERNER [facility] Magnesium (08/23/2010 3:00 AM EDT) athologist Signature Magnesium 0.78 0.69 - 1.07 CERNER mmol/L [facility] Specimen Anatomical Collection Method Collection Time Receive d Time (Source) Location / / Volume Laterality Blood specimen 08/23/2010 3:00 AM 011 3:03 (specimen) EDT AM EDT Zeke Richter MD CHEMISTRY ORDERABLES Performing Organization Address City/[facility]/ZIP Code Phon e Number [address] CERNER [facility] POCT GLUCOSE LAB USE ONLY (08/23/2010 12:07 AM EDT) athologist [facility] POC Glucose 185 60 - 199 CERNER mg/dL [facility] Comment: Supplemental ranges: <110 mg/dL before meals <200 mg/dL all other times of the day Specimen Anatomical Collection Method Collection Time Receive d Time (Source) Location / / Volume Laterality Blood specimen 08/23/2010 12:07 1 (specimen) AM EDT 12:07 AM EDT Benson Leahy MD POINT OF CARE TEST ORDERABLE S Performing Organization Address City/[facility]/ZIP Code Phon e Number [address] CERNER [facility] Blood culture #2 (08/22/2010 10:55 PM EDT) [facility] gist Method Time Signature Blood Culture CERNER ? Patient Name: DIANE, DEN R ?Ordered By: BENSON LEAHY ? MR#: [id number] ?LOC: ??ICUS ? /Sex: ??1945 (64 years), ? Female ? PROCEDURE: Blood Culture ?SOURCE: Blood ? COLLECTED: 08/22/2010 22:55 ? BODY SITE: Left Forearm ? STARTED: 08/23/2010 00:41 ? FINAL REPORT ? Final Report ? Verified:08/28/2010 15:10 ? No growth at 5 days. ? PRELIMINARY REPORT ? Preliminary Report ? Verified:08/27/2010 07:08 ? No growth at 4 days. ? Specimen Anatomical Collection Method Collection Time Receive d Time (Source) Location / / Volume Laterality Blood specimen STRUCTURE OF LEFT 08/22/2010 10:55 07/27 (specimen) FOREARM / Unknown PM EDT 12:41 AM E DT Benson Leahy MD MICROBIOLOGY - BLOOD ORDERAB LES Performing Organization Address City/State/ZIP Code Phon e Number [place] [phone] [facility]OS[address] DAVID LIN Blood culture #1 (08/22/2010 10:40 PM EDT) [facility] Method Time Signature Blood Culture CERNER ? Patient Name: DIANE, DEN R ?Ordered By: BENSON LEAHY ? MR#: [id number] ?LOC: ??ICUS ? /Sex: ??1945 (64 years), ? Female ? PROCEDURE: Blood Culture ?SOURCE: Blood ? COLLECTED: 08/22/2010 22:40 ? BODY SITE: Right Antecubital ? STARTED: 08/23/2010 00:41 ? FINAL REPORT ? Final Report ? Verified:08/28/2010 15:10 ? No growth at 5 days. ? PRELIMINARY REPORT ? Preliminary Report ? Verified:08/27/2010 07:08 ? No growth at 4 days. ? Specimen Anatomical Location Collection Method Collection Time Received Time (Source) / Laterality / Volume Blood specimen ANTECUBITAL REGION 08/22/2010 10:40 (specimen) STRUCTURE / Unknown PM EDT 12:40 AM EDT Benson Leahy MD MICROBIOLOGY - BLOOD ORDERAB LES Performing Organization Address City/State/[place] [address] DAVID LIN Urine culture Indwelling Catheter Urine (08/22/2010 10:23 PM EDT) [facility] Method Time Signature Urine Culture CERNER ? Patient Name: DIANE, DEN R ?Ordered By: BENSON LEAHY ? MR#: [id number] ?LOC: ??ICUS ? /Sex: ??1945 (64 years), ? Female ? PROCEDURE: Urine Culture ?SOURCE: U ICath ? COLLECTED: 08/22/2010 22:23 ? STARTED: 08/23/2010 08:28 ? FINAL REPORT ? Final Report ? Verified:08/24/2010 07:16 ? No growth (Less than 1,000 cfu/ml). ? Specimen (Source) Anatomical Collection Method Collection Time Re ceived Time Location / / Volume Laterality Urine specimen 08/22/2010 10:23 1 8:28 obtained via PM EDT AM EDT indwelling urinary catheter (specimen) Benson Leahy MD MICROBIOLOGY - GENERAL ORDER RITO Performing Organization Address City/State/[place] [address] CERNER MILLENNIUM (ABNORMAL) Urinalysis with microscopic (08/22/2010 10:20 PM EDT) [facility] Method Time Signature Glucose UA Negative Negative CERNER mg/dL MILLENNIUM Protein UA 30 (A) Neg mg/dL CERNER MILLENNIUM Bilirubin UA Negative Negative CERNER mg/dL MILLENNIUM Urobilinogen UA Normal mg/dL CERNER MILLENNIUM pH UA 6.0 5.0 - 8.0 CERNER MILLENNIUM Blood UA Negative mg/dL [facility] Ketones UA Negative mg/dL [facility] Nitrite UA Negative [facility] Leukocytes UA Negative mcL [facility] Appearance UA Clear Clear [facility] Spec Fitzgerald UA 1.016 1.002 - [facility] 1.030 [facility] Color UA Yellow Yellow [facility] RBC UA 10 (H) 0 - 4 /HPF [facility] WBC UA 2 0 - 5 /HPF [facility] Squam Epith UA 1 <=4 /HPF [facility] Trans Epith UA <1 <=1 /HPF [facility] Renal Epith UA <1 (H) <=0 /HPF [facility] Amorph Lanie UA Rare (A) None /HPF [facility] Specimen Anatomical Collection Method Collection Time Receive d Time (Source) Location / / Volume Laterality Urine specimen 08/22/2010 10:20 1 (specimen) PM EDT 11:00 PM EDT Benson Leahy MD URINE ORDERABLES Performing Organization Address City/[facility]/ZIP Code Phon e Number [address] [facility] POCT GLUCOSE LAB USE ONLY (08/22/2010 9:32 PM EDT) athologist Signature POC Glucose 110 60 - 199 CERNER mg/dL [facility] Comment: Supplemental ranges: <110 mg/dL before meals <200 mg/dL all other times of the day Specimen Anatomical Collection Method Collection Time Receive d Time (Source) Location / / Volume Laterality Blood specimen 08/22/2010 9:32 PM 011 9:32 (specimen) EDT PM EDT Benson Leahy MD POINT OF CARE TEST ORDERABLE S Performing Organization Address City/[facility]/ZIP Code Phon e Number [address] [facility] POCT GLUCOSE LAB USE ONLY (08/22/2010 4:42 PM EDT) athologist Signature POC Glucose 99 60 - 199 CERNER mg/dL [facility] Comment: Supplemental ranges: <110 mg/dL before meals <200 mg/dL all other times of the day Specimen Anatomical Collection Method Collection Time Receive d Time (Source) Location / / Volume Laterality Blood specimen 08/22/2010 4:42 PM 011 4:42 (specimen) EDT PM EDT Benson Leahy MD POINT OF CARE TEST ORDERABLE S Performing Organization Address City/[facility]/[place] [address] CERNER MILLENNIUM POCT GLUCOSE LAB USE ONLY (08/22/2010 12:58 PM EDT) P athologist Signature POC Glucose 108 60 - 199 CERNER mg/dL MILLENNIUM Comment: Supplemental ranges: <110 mg/dL before meals <200 mg/dL all other times of the day Specimen Anatomical Collection Method Collection Time Receive d Time (Source) Location / / Volume Laterality Blood specimen 08/22/2010 12:58 1 (specimen) PM EDT 12:58 PM EDT Benson Leahy MD POINT OF CARE TEST ORDERABLE S Performing Organization Address City/[facility]/ZIP Code Phon e Number [address] CERNER MILLENNIUM POCT GLUCOSE LAB USE ONLY (08/22/2010 7:55 AM EDT) P athologist Signature POC Glucose 112 60 - 199 CERNER mg/dL MILLENNIUM Comment: Supplemental ranges: <110 mg/dL before meals <200 mg/dL all other times of the day Specimen Anatomical Collection Method Collection Time Receive d Time (Source) Location / / Volume Laterality Blood specimen 08/22/2010 7:55 AM 011 7:55 (specimen) EDT AM EDT Benson Leahy MD POINT OF CARE TEST ORDERABLE S Performing Organization Address City/[facility]/[place] [address] CERNER MILLENNIUM POCT GLUCOSE LAB USE ONLY (08/22/2010 5:43 AM EDT) P athologist Signature POC Glucose 99 60 - 199 CERNER mg/dL MILLENNIUM Comment: Supplemental ranges: <110 mg/dL before meals <200 mg/dL all other times of the day Specimen Anatomical Collection Method Collection Time Receive d Time (Source) Location / / Volume Laterality Blood specimen 08/22/2010 5:43 AM 011 5:43 (specimen) EDT AM EDT Benson Leahy MD POINT OF CARE TEST ORDERABLE S Performing Organization Address City/[facility]/ZIP Code Phon e Number [address] CERNER MILLENNIUM POCT GLUCOSE LAB USE ONLY (08/22/2010 3:38 AM EDT) P athologist Signature POC Glucose 110 60 - 199 CERNER mg/dL MILLENNIUM Comment: Supplemental ranges: <110 mg/dL before meals <200 mg/dL all other times of the day Specimen Anatomical Collection Method Collection Time Receive d Time (Source) Location / / Volume Laterality Blood specimen 08/22/2010 3:38 AM 011 3:38 (specimen) EDT AM EDT Benson Leahy MD POINT OF CARE TEST ORDERABLE S Performing Organization Address City/[facility]/ZIP Code Phon e Number [address] CERNER MILLENNIUM (ABNORMAL) REFLEX LAB-A-DIFF (08/22/2010 1:30 AM EDT) Patholo gist Method Time Signature Neutrophils % 74.9 (H) 34.0 - CERNER 71.0 % MILLENNIUM Neutr Abs (ANC) 5.98 1.50 - CERNER 6.30 MILLENNIUM x10(3)/mc L Lymphocytes % 11.9 (L) 19.0 - CERNER 53.0 % MILLENNIUM Lymphocytes Abs 1.0 1.0 - 3.6 CERNER x10(3)/mc MILLENNIUM L Monocytes % 11.2 4.0 - CERNER 13.0 % MILLENNIUM Monocyte Abs 0.9 0.2 - 1.0 CERNER x10(3)/mc MILLENNIUM L Eosinophils % 1.5 0.0 - 7.0 CERNER % MILLENNIUM Eosinophils Abs 0.1 0.0 - 0.5 CERNER x10(3)/mc MILLENNIUM L Basophils % 0.1 0.0 - 2.0 CERNER % MILLENNIUM Basophils Abs 0.0 0.0 - 0.2 CERNER x10(3)/mc MILLENNIUM L Immature Gran % 0.40 0.00 - CERNER 0.66 % MILLENNIUM Comment: Immature granulocytes(IG's)percentage an d absolute count will include metamyelocytes, myelocytes, and promyelo cytes. Blood smears from CBCs yielding IG's will be scanned manually for concor dance. If this scan disagrees with the automated IG or if promyelocytes are not ed, a manual differential will be performed. Liss Gran Abs 0.03 0.00 - 0.05 x10(3)/mcL CER NER MILLENNIUM Specimen Anatomical Collection Method Collection Time Receive d Time (Source) Location / / Volume Laterality Blood specimen 08/22/2010 1:30 AM 011 1:42 (specimen) EDT AM EDT Benson Leahy MD HEMATOLOGY ORDERABLES Performing Organization Address City/State/[place] [address] CERNER MILLENNIUM (ABNORMAL) CBC (with Diff) (08/22/2010 1:30 AM EDT) P athologist Signature WBC 8.0 4.0 - 10.0 CERNER x10(3)/mcL MILLENNIUM RBC 2.72 (L) 3.93 - CERNER 5.22 MILLENNIUM x10(6)/mcL Hemoglobin 8.0 (L) 11.2 - CERNER 15.7 gm/dL MILLENNIUM Hematocrit 23.4 (L) 34.0 - CERNER 45.0 % MILLENNIUM MCV 86.0 79.0 - CERNER 94.0 fL MILLENNIUM MCH 29.4 26.6 - CERNER 32.2 pg MILLENNIUM MCHC 34.2 32.0 - CERNER 36.5 gm/dL MILLENNIUM Platelets 276 145 - 370 CERNER x10(3)/mcL MILLENNIUM RDWSD 51.4 (H) 35.0 - CERNER 46.0 fL MILLENNIUM RDWCV 16.3 (H) 10.9 - CERNER 14.4 % MILLENNIUM MPV 9.6 9.0 - 12.0 CERNER fL MILLENNIUM Specimen Anatomical Collection Method Collection Time Receive d Time (Source) Location / / Volume Laterality Blood specimen 08/22/2010 1:30 AM 011 1:42 (specimen) EDT AM EDT Benson Leahy MD HEMATOLOGY ORDERABLES Performing Organization Address City/State/[place] [address] CERNER MILLENNIUM (ABNORMAL) Basic Metabolic Panel (non-fasting) (08/22/2010 1:30 AM EDT) P athologist Signature Glucose Lvl 110 60 - 199 CERNER mg/dL MILLENNIUM Comment: Diabetes: >=200 mg/dL plus symp toms BUN 21 (H) 8 - 18 mg/dL CERNER MILLENNIUM Comment: result rechecked - afp Creatinine 0.37 (L) 0.70 - 1.20 mg/dL CERNER MILL ENNIUM Sodium 138 135 - 145 mmol/L CERNER ORLY NIUM Potassium 4.1 3.5 - 5.0 mmol/L CERNER ORLY NIUM Comment: Please note: ??Patients with WBC >100,00 0 may have falsely elevated Potassium levels. ??For accurate Potassium quantif ication in these patients send serum separator tube (gold top) for subsequent determinations. ??Contact the Clinical Chemistry Laboratory if there are any qu estions. Chloride 108 (H) 98 - 107 mmol/L CERNER MILLENN IUM CO2 23 22 - 31 mmol/L CERNER MILLENNI UM Anion Gap 7 5 - 15 mmol/L CERNER MILLENNIU M Calcium 7.7 (L) 8.5 - 10.5 mg/dL CERNER ORLY NIUM Estimated GFR >60 >=60 CERNER MILLENNIU M Comment: The National Kidney Disease Education Pr ogram (NKDEP) has recommended all laboratories report estimated GFR (eGFR) along with plasma creatinine measurements to assist you with recognit ion of early kidney disease. Caveats: ??Plasma creatinine should be a t steady-state (unchanged within the past week). For patient s multiply eGFR by 1.2.MDRD equation has not been validated for pediatric pat ients and is only valid for patients with age >= 18 years. At present, NKDEP does NOT recommend usi ng the MDRD equation for drug dosing purposes and pharmacists should continue to use their current dosing methods. In addition, numerical eGFR values great er than 60 ml/min/1.73 square meters should be treated as > 60, and not an ex act number due to greater inaccuracies at these higher values. Per NKDEP, they classify normal renal function as any GFR >60ml/min/1.73 square meters; chronic kidney disease wh en GFR <60, and renal failure when GFR <15. ??This calculation may not be valid for patients with atypical muscle mass (very lean or obese), acute renal failur e, and in patients with diabetic kidney disease. References: http://nkdep.nih.gov/resources/NKDEP_Sug gestn4Labs_0606_508.pdf http://www.kidney.org/professionals/kls/ pdf/faq_gfr.pdf Specimen Anatomical Collection Method Collection Time Receive d Time (Source) Location / / Volume Laterality Blood specimen 08/22/2010 1:30 AM 011 1:42 (specimen) EDT AM EDT Benson Leahy MD CHEMISTRY ORDERABLES Performing Organization Address [facility] e Number [address] CERNER MILLENNIUM Phosphorus (08/22/2010 1:30 AM EDT) athologist Signature Phosphorus 3.8 2.5 - 4.5 CERNER mg/dL MILLENNIUM Specimen Anatomical Collection Method Collection Time Receive d Time (Source) Location / / Volume Laterality Blood specimen 08/22/2010 1:30 AM 011 1:42 (specimen) EDT AM EDT Zeke Richter MD CHEMISTRY ORDERABLES Performing Organization Address [facility] Phon e Number [address] CERNER MILLENNIUM Magnesium (08/22/2010 1:30 AM EDT) athologist Signature Magnesium 0.83 0.69 - 1.07 CERNER mmol/L MILLENNIUM Specimen Anatomical Collection Method Collection Time Receive d Time (Source) Location / / Volume Laterality Blood specimen 08/22/2010 1:30 AM 011 1:42 (specimen) EDT AM EDT Zeke Richter MD CHEMISTRY ORDERABLES Performing Organization Address City/[facility]/ZIP Code Phon e Number [address] CERNER MILLENNIUM POCT GLUCOSE LAB USE ONLY (08/22/2010 1:26 AM EDT) athologist Signature POC Glucose 146 60 - 199 CERNER mg/dL MILLENNIUM Comment: Supplemental ranges: <110 mg/dL before meals <200 mg/dL all other times of the day Specimen Anatomical Collection Method Collection Time Receive d Time (Source) Location / / Volume Laterality Blood specimen 08/22/2010 1:26 AM 011 1:26 (specimen) EDT AM EDT Benson Leahy MD POINT OF CARE TEST ORDERABLE S Performing Organization Address City/[facility]/ZIP Code Phon e Number [address] CERNER MILLENNIUM POCT GLUCOSE LAB USE ONLY (08/21/2010 9:22 PM EDT) athologist Signature POC Glucose 113 60 - 199 CERNER mg/dL MILLENNIUM Comment: Supplemental ranges: <110 mg/dL before meals <200 mg/dL all other times of the day Specimen Anatomical Collection Method Collection Time Receive d Time (Source) Location / / Volume Laterality Blood specimen 08/21/2010 9:22 PM 011 9:22 (specimen) EDT PM EDT Benson Leahy MD POINT OF CARE TEST ORDERABLE S Performing Organization Address City/[facility]/[place] [address] CERNER MILLENNIUM POCT GLUCOSE LAB USE ONLY (08/21/2010 7:46 PM EDT) athologist Signature POC Glucose 132 60 - 199 CERNER mg/dL MILLENNIUM Comment: Supplemental ranges: <110 mg/dL before meals <200 mg/dL all other times of the day Specimen Anatomical Collection Method Collection Time Receive d Time (Source) Location / / Volume Laterality Blood specimen 08/21/2010 7:46 PM 011 7:46 (specimen) EDT PM EDT Benson Leahy MD POINT OF CARE TEST ORDERABLE S Performing Organization Address City/[facility]/[place] [address] CERNER FolicaIUM POCT GLUCOSE LAB USE ONLY (08/21/2010 5:03 PM EDT) athologist Signature POC Glucose 98 60 - 199 CERNER mg/dL [facility] Comment: Supplemental ranges: <110 mg/dL before meals <200 mg/dL all other times of the day Specimen Anatomical Collection Method Collection Time Receive d Time (Source) Location / / Volume Laterality Blood specimen 08/21/2010 5:03 PM 011 5:03 (specimen) EDT PM EDT Benson Leahy MD POINT OF CARE TEST ORDERABLE S Performing Organization Address City/[facility]/ZIP Code Phon e Number [address] Radario XR chest PA or AP- 1 view (08/21/2010 4:46 PM EDT) Anatomical Region Laterality Modality Chest N/A Radiographic Imaging Specimen (Source) Anatomical Collection Method Collection Time Re ceived Time Location / / Volume Laterality 08/21/2010 4:46 PM EDT Narrative 08/22/2010 11:18 AM EDT PORTABLE CHEST X-RAY, 08/21/2010: INDICATION: ??Desaturation. TECHNIQUE: ?? A single portable AP supin e view of the chest. COMPARISON: ??08/20/2010. FINDINGS: ??Moderate size bilateral post erior layering effusions are still present. ??Suspect partial compression a telectasis of the bilateral lower lungs. ?? No worsening airspace consolidation in c omparison to the prior exam. ?? Endotracheal tube, left-sided central ve nous line and tube coursing along the esophagus are in stable position. ?? Procedure Note Deepali Swift MD - 2010 PORTABLE CHEST X-RAY, 08/21/2010: INDICATION: Desaturation. TECHNIQUE: A single portable AP supine v iew of the chest. COMPARISON: 08/20/2010. FINDINGS: Moderate size bilateral risk consultant ior layering effusions are still present. Suspect partial compression ate lectasis of the bilateral lower lungs. No worsening airspace consolidation in c omparison to the prior exam. Endotracheal tube, left-sided central ve nous line and tube coursing along the esophagus are in stable position. Benson Leahy MD IMG DX ORDERABLES Potassium (08/21/2010 1:32 PM EDT) athologist Signature Potassium 3.7 3.5 - 5.0 CERNER mmol/L [facility] Comment: Please note: ??Patients with WBC >100,00 0 may have falsely elevated Potassium levels. ??For accurate Potassium quantif ication in these patients send serum separator tube (gold top) for subsequent determinations. ??Contact the Clinical Chemistry Laboratory if there are any qu estions. Specimen Anatomical Collection Method Collection Time Receive d Time (Source) Location / / Volume Laterality Blood specimen 08/21/2010 1:32 PM 011 1:32 (specimen) EDT PM EDT Zeke Richter MD CHEMISTRY ORDERABLES Performing Organization Address City/[facility]/[place] [address] CERNER FolicaIUM POCT GLUCOSE LAB USE ONLY (08/21/2010 1:02 PM EDT) athologist Signature POC Glucose 150 60 - 199 CERNER mg/dL [facility] Comment: Supplemental ranges: <110 mg/dL before meals <200 mg/dL all other times of the day Specimen Anatomical Collection Method Collection Time Receive d Time (Source) Location / / Volume Laterality Blood specimen 08/21/2010 1:02 PM 011 1:02 (specimen) EDT PM EDT Benson Leahy MD POINT OF CARE TEST ORDERABLE S Performing Organization Address City/[facility]/[place] [address] CERNER MILLENNIUM POCT GLUCOSE LAB USE ONLY (08/21/2010 8:26 AM EDT) P athologist Signature POC Glucose 177 60 - 199 CERNER mg/dL MILLENNIUM Comment: Supplemental ranges: <110 mg/dL before meals <200 mg/dL all other times of the day Specimen Anatomical Collection Method Collection Time Receive d Time (Source) Location / / Volume Laterality Blood specimen 08/21/2010 8:26 AM 011 8:26 (specimen) EDT AM EDT Benson Leahy MD POINT OF CARE TEST ORDERABLE S Performing Organization Address City/State/[place] [address] [facility] [address] DAVID HUNTLEYENNIUM (ABNORMAL) REFLEX LAB-A-DIFF (08/21/2010 4:45 AM EDT) Patholo gist Method Time Signature Neutrophils % 77.8 (H) 34.0 - CERNER 71.0 % MILLENNIUM Neutr Abs (ANC) 6.68 (H) 1.50 - CERNER 6.30 MILLENNIUM x10(3)/mc L Lymphocytes % 11.0 (L) 19.0 - CERNER 53.0 % MILLENNIUM Lymphocytes Abs 1.0 1.0 - 3.6 CERNER x10(3)/mc MILLENNIUM L Monocytes % 9.8 4.0 - CERNER 13.0 % MILLENNIUM Monocyte Abs 0.8 0.2 - 1.0 CERNER x10(3)/mc MILLENNIUM L Eosinophils % 1.0 0.0 - 7.0 CERNER % MILLENNIUM Eosinophils Abs 0.1 0.0 - 0.5 CERNER x10(3)/mc MILLENNIUM L Basophils % 0.1 0.0 - 2.0 CERNER % MILLENNIUM Basophils Abs 0.0 0.0 - 0.2 CERNER x10(3)/mc MILLENNIUM L Immature Gran % 0.30 0.00 - CERNER 0.66 % MILLENNIUM Comment: Immature granulocytes(IG's)percentage an d absolute count will include metamyelocytes, myelocytes, and promyelo cytes. Blood smears from CBCs yielding IG's will be scanned manually for concor dance. If this scan disagrees with the automated IG or if promyelocytes are not ed, a manual differential will be performed. Liss Gran Abs 0.03 0.00 - 0.05 x10(3)/mcL CER NER MILLENNIUM Specimen Anatomical Collection Method Collection Time Receive d Time (Source) Location / / Volume Laterality Blood specimen 08/21/2010 4:45 AM 011 4:54 (specimen) EDT AM EDT Benson Leahy MD HEMATOLOGY ORDERABLES Performing Organization Address City/[facility]/[place] [address] CERNER MILLENNIUM (ABNORMAL) CBC (with Diff) (08/21/2010 4:45 AM EDT) P athologist Signature WBC 8.6 4.0 - 10.0 CERNER x10(3)/mcL MILLENNIUM RBC 3.07 (L) 3.93 - CERNER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 with atypical muscle mass (very lean or obese), acute renal failur e, and in patients with diabetic kidney disease. References: http://nkdep.nih.gov/resources/NKDEP_Sug gestn4Labs_0606_508.pdf http://www.kidney.org/professionals/kls/ pdf/faq_gfr.pdf Specimen Anatomical Collection Method Collection Time Receive d Time (Source) Location / / Volume Laterality Blood specimen 08/20/2010 2:30 PM 011 2:46 (specimen) EDT PM EDT Benson Leahy MD CHEMISTRY ORDERABLES Performing Organization Address City/State/[place] [address] CERNER MILLENNIUM (ABNORMAL) CBC (with Diff) (08/20/2010 2:30 PM EDT) P athologist Signature WBC 9.2 4.0 - 10.0 CERNER x10(3)/mcL MILLENNIUM RBC 2.87 (L) 3.93 - CERNER 5.22 MILLENNIUM x10(6)/mcL Hemoglobin 8.5 (L) 11.2 - CERNER 15.7 gm/dL MILLENNIUM Hematocrit 24.3 (L) 34.0 - CERNER 45.0 % MILLENNIUM MCV 84.7 79.0 - CERNER 94.0 fL MILLENNIUM MCH 29.6 26.6 - CERNER 32.2 pg MILLENNIUM MCHC 35.0 32.0 - CERNER 36.5 gm/dL MILLENNIUM Platelets 233 145 - 370 CERNER x10(3)/mcL MILLENNIUM RDWSD 49.0 (H) 35.0 - CERNER 46.0 fL MILLENNIUM RDWCV 15.9 (H) 10.9 - CERNER 14.4 % MILLENNIUM MPV 9.3 9.0 - 12.0 CERNER fL MILLENNIUM Specimen Anatomical Collection Method Collection Time Receive d Time (Source) Location / / Volume Laterality Blood specimen 08/20/2010 2:30 PM 011 2:46 (specimen) EDT PM EDT Benson Leahy MD HEMATOLOGY ORDERABLES Performing Organization Address City/State/[place] [address] CERNER FolicaIUM XR KNEE DIAGNOSTIC 1 OR 2 VIEW (08/20/2010 1:27 PM EDT) Anatomical Region Laterality Modality Knee N/A Radiographic Imaging Specimen (Source) Anatomical Collection Method Collection Time Re ceived Time Location / / Volume Laterality 08/20/2010 1:27 PM EDT Narrative 08/21/2010 8:24 AM EDT LEFT KNEE: CLINICAL HISTORY: ??Followup fracture. FINDINGS: ??Two C-arm images show operat nicole reduction internal fixation of a tibial plateau fracture. ??Hardware inta ct. ??Alignment is normal. ?? Fibular fracture is identified. ?? Procedure Note Randall Messina MD - 08/21/2010Form atting of this note might be different from the original. LEFT KNEE: CLINICAL HISTORY: Followup fracture. FINDINGS: Two C-arm images show operativ e reduction internal fixation of a tibial plateau fracture. Hardware intact . Alignment is normal. Fibular fracture is identified. Perry Lunsford MD IMG DX ORDERABLES Transfuse RBC (08/20/2010 11:24 AM EDT) Ramsey Bailey MD NURSING TREATMENT ORDERABLES - BLOOD ADMIN POCT GLUCOSE LAB USE ONLY (08/20/2010 8:54 AM EDT) athologist Signature POC Glucose 195 60 - 199 CERNER mg/dL [facility] Comment: Supplemental ranges: <110 mg/dL before meals <200 mg/dL all other times of the day Specimen Anatomical Collection Method Collection Time Receive d Time (Source) Location / / Volume Laterality Blood specimen 08/20/2010 8:54 AM 011 8:54 (specimen) EDT AM EDT Benson Leahy MD POINT OF CARE TEST ORDERABLE S Performing Organization Address City/State/[place] [address] CERNER FolicaIUM Duplex Study for DVT, Bilat legs (08/20/2010 8:19 AM EDT) Component Value Ref Test Analysis Performed At [facility] gist Range Method Time Signature VB Text VASCUBASE Report Department: Vascular Surgery Lab Patient: [id number] (DEN HAN) CPT Code: 70913 ICD-9: 959.8 Referring Physician: BENSON LEAHY Indication: ??s/p multi-trauma, tachicardia ICD9 Diagnosis Code: 959.8 RIGHT: Patent common femoral vein and popliteal vein with sp ontaneous, respirophasic Doppler wavefo sean that respond normally to augmentation maneuvers. The common femoral vein, sap henofemoral junction, femoral vein through the thigh and the popliteal vein are fully compressible. C annot visualize the posterior tibial or peroneal veins due to a cast; therefore, cannot exclude calf vein thrombus. No significant change compared to previous exam on 08.17.2010. LEFT: Patent common femoral vein with spontaneous, respiroph asic Doppler waveforms that respond normally to augmentation maneuvers. The common femoral vein, saphenofemoral junction, femoral vein at the proxima l thigh are fully compressible. Unable to visu ramon the femoral vein at the mid and distal thigh, popliteal vein and calf veins due to a c ast; therefore cannot exclude thrombus at these levels. Test is mor e limited today due to presence of the cast compared to prior exam on 08.17.2010. Interpretation: RIGHT: No evidence of fem-pop lower extremity deep vein thro mbosis. Cannot exclude calf vein thrombus. LEFT: No evidence of deep vein thrombosis in the common femo ral vein and femoral vein at the proximal thigh level . Unable to visualize the femoral vein at the mid and distal thigh, popliteal vein and calf veins d ue to a cast; therefore cannot exclude thrombus at these levels. Signed by AARON ASHLEY on 2010-08-23 08:56:22 AM VB Text End of Report VASCUBASE Report Specimen (Source) Anatomical Collection Method Collection Time Re ceived Time Location / / Volume Laterality 08/20/2010 8:19 AM EDT Benson Leahy MD VASCULAR ORDERABLES Performing Organization Address City/State/ZIP Code Phon e Number [facility] PREPARE RBC (08/20/2010 7:52 AM EDT) P athologist Signature Dispensed? No CERNER [facility] Specimen Anatomical Collection Method Collection Time Receive d Time (Source) Location / / Volume Laterality Blood specimen 08/20/2010 7:52 AM 011 7:52 (specimen) EDT AM EDT Benson Leahy MD BLOOD BANK ORDERABLES Performing Organization Address City/[facility]/ZIP Code Phon e Number [address] DAVID MACKEYIUM Prepare RBC (08/20/2010 7:50 AM EDT) P athologist Signature Dispensed? Yes [facility] Specimen Anatomical Collection Method Collection Time Receive d Time (Source) Location / / Volume Laterality Blood specimen 08/20/2010 7:50 AM 011 7:50 (specimen) EDT AM EDT Benson Leahy MD BLOOD BANK ORDERABLES Performing Organization Address City/[facility]/ZIP Code Phon e Number [address] DAVID HUNTLEYENNIUM REFLEX LAB-ABORH TYPE MANUAL (08/20/2010 6:28 AM EDT) Analysis Performed At Patho logist Time Signature Expires at [id number] [facility] 9 on: MILLENNIUM ABORh Type A Pos DAVID MACKEYIUM Specimen Anatomical Collection Method Collection Time Receive d Time (Source) Location / / Volume Laterality Blood specimen 08/20/2010 6:28 AM 011 6:28 (specimen) EDT AM EDT Benson Leahy MD BLOOD BANK ORDERABLES Performing Organization Address City/[facility]/ZIP Code Phon e Number [address] DAVID HUNTLEYENNIUM (ABNORMAL) REFLEX LAB-A-DIFF (08/20/2010 4:45 AM EDT) Patholo gist Method Time Signature Neutrophils % 78.2 (H) 34.0 - CERNER 71.0 % MILLENNIUM Neutr Abs (ANC) 5.96 1.50 - CERNER 6.30 MILLENNIUM x10(3)/mc L Lymphocytes % 8.7 (L) 19.0 - CERNER 53.0 % MILLENNIUM Lymphocytes Abs 0.7 (L) 1.0 - 3.6 CERNER x10(3)/mc MILLENNIUM L Monocytes % 10.9 4.0 - CERNER 13.0 % MILLENNIUM Monocyte Abs 0.8 0.2 - 1.0 CERNER x10(3)/mc MILLENNIUM L Eosinophils % 1.7 0.0 - 7.0 CERNER % MILLENNIUM Eosinophils Abs 0.1 0.0 - 0.5 CERNER x10(3)/mc MILLENNIUM L Basophils % 0.1 0.0 - 2.0 CERNER % MILLENNIUM Basophils Abs 0.0 0.0 - 0.2 CERNER x10(3)/mc MILLENNIUM L Immature Gran % 0.40 0.00 - CERNER 0.66 % MILLENNIUM Comment: Immature granulocytes(IG's)percentage an d absolute count will include metamyelocytes, myelocytes, and promyelo cytes. Blood smears from CBCs yielding IG's will be scanned manually for concor dance. If this scan disagrees with the automated IG or if promyelocytes are not ed, a manual differential will be performed. Liss Gran Abs 0.03 0.00 - 0.05 x10(3)/mcL CER NER MILLENNIUM Specimen Anatomical Collection Method Collection Time Receive d Time (Source) Location / / Volume Laterality Blood specimen 08/20/2010 4:45 AM 011 4:57 (specimen) EDT AM EDT Benson Leahy MD HEMATOLOGY ORDERABLES Performing Organization Address City/[facility]/[place] [address] [facility] REFLEX LAB-ANTIBODY SCREEN (08/20/2010 4:45 AM EDT) Analysis Performed At Patho logist Time Signature Ab Screen Negative CERNER Interp MILLENNIUM Expires at [id number] CERNER 2358 on: MILLENNIUM Specimen Anatomical Collection Method Collection Time Receive d Time (Source) Location / / Volume Laterality Blood specimen 08/20/2010 4:45 AM 011 4:57 (specimen) EDT AM EDT Benson Leahy MD BLOOD BANK ORDERABLES Performing Organization Address City/[facility]/[place] [address] [facility] MILLENNIUM REFLEX LAB-ABO/RH TYPING (08/20/2010 4:45 AM EDT) athologist Signature ABORh Type A Pos CERNER MILLENNIUM Specimen Anatomical Collection Method Collection Time Receive d Time (Source) Location / / Volume Laterality Blood specimen 08/20/2010 4:45 AM 011 4:57 (specimen) EDT AM EDT Benson Leahy MD BLOOD BANK ORDERABLES Performing Organization Address City/[facility]/[place] [address] CERNER MILLENNIUM (ABNORMAL) CBC (with Diff) (08/20/2010 4:45 AM EDT) P athologist Signature WBC 7.6 4.0 - 10.0 CERNER x10(3)/mcL MILLENNIUM RBC 2.45 (L) 3.93 - CERNER 5.22 MILLENNIUM x10(6)/mcL Hemoglobin 7.2 (L) 11.2 - CERNER 15.7 gm/dL MILLENNIUM Hematocrit 20.9 (L) 34.0 - CERNER 45.0 % MILLENNIUM MCV 85.3 79.0 - CERNER 94.0 fL MILLENNIUM MCH 29.4 26.6 - CERNER 32.2 pg MILLENNIUM MCHC 34.4 32.0 - CERNER 36.5 gm/dL MILLENNIUM Platelets 224 145 - 370 CERNER x10(3)/mcL MILLENNIUM RDWSD 46.7 (H) 35.0 - CERNER 46.0 fL MILLENNIUM RDWCV 15.0 (H) 10.9 - CERNER 14.4 % MILLENNIUM MPV 8.8 (L) 9.0 - 12.0 CERNER fL MILLENNIUM Specimen Anatomical Collection Method Collection Time Receive d Time (Source) Location / / Volume Laterality Blood specimen 08/20/2010 4:45 AM 011 4:57 (specimen) EDT AM EDT Benson Leahy MD HEMATOLOGY ORDERABLES Performing Organization Address City/[facility]/[place] [address] CERNER MILLENNIUM (ABNORMAL) Basic Metabolic Panel (non-fasting) (08/20/2010 4:45 AM EDT) P athologist Signature Glucose Lvl 164 60 - 199 CERNER mg/dL MILLENNIUM Comment: Diabetes: >=200 mg/dL plus symp toms BUN 9 8 - 18 mg/dL CERNER MILLENNIUM Creatinine 0.42 (L) 0.70 - 1.20 mg/dL CERNER MILL ENNIUM Sodium 137 135 - 145 mmol/L CERNER ORLY NIUM Comment: rechecked - llu Potassium 3.0 (Critical) 3.5 - 5.0 mmol/L CERNER M ILLENNIUM Comment: Called by: llu, Read back by: Serafin Casas ins, Date/Time:08/20/10 05:37. Please note: ??Patients with WBC >100,00 0 may have falsely elevated Potassium levels. ??For accurate Potassium quantif ication in these patients send serum separator tube (gold top) for subsequent determinations. ??Contact the Clinical Chemistry Laboratory if there are any qu estions. Chloride 107 98 - 107 mmol/L CERNER MILLENN IUM Comment: rechecked - llu CO2 22 22 - 31 mmol/L CERNER MILLENNI UM Anion Gap 8 5 - 15 mmol/L CERNER MILLENNIU M Calcium 7.8 (L) 8.5 - 10.5 mg/dL CERNER ORLY NIUM Estimated GFR >60 >=60 CERNER MILLENNIU M Comment: The National Kidney Disease Education Pr ogram (NKDEP) has recommended all laboratories report estimated GFR (eGFR) along with plasma creatinine measurements to assist you with recognit ion of early kidney disease. Caveats: ??Plasma creatinine should be a t steady-state (unchanged within the past week). For patient s multiply eGFR by 1.2.MDRD equation has not been validated for pediatric pat ients and is only valid for patients with age >= 18 years. At present, NKDEP does NOT recommend usi ng the MDRD equation for drug dosing purposes and pharmacists should continue to use their current dosing methods. In addition, numerical eGFR values great er than 60 ml/min/1.73 square meters should be treated as > 60, and not an ex act number due to greater inaccuracies at these higher values. Per NKDEP, they classify normal renal function as any GFR >60ml/min/1.73 square meters; chronic kidney disease wh en GFR <60, and renal failure when GFR <15. ??This calculation may not be valid for patients with atypical muscle mass (very lean or obese), acute renal failur e, and in patients with diabetic kidney disease. References: http://nkdep.nih.gov/resources/NKDEP_Sug gestn4Labs_0606_508.pdf http://www.kidney.org/professionals/kls/ pdf/faq_gfr.pdf Specimen Anatomical Collection Method Collection Time Receive d Time (Source) Location / / Volume Laterality Blood specimen 08/20/2010 4:45 AM 011 4:57 (specimen) EDT AM EDT Benson Leahy MD CHEMISTRY ORDERABLES Performing Organization Address [facility]/[place] [address] CERNER MILLENNIUM Phosphorus (08/20/2010 4:45 AM EDT) P athologist Signature Phosphorus 2.5 2.5 - 4.5 CERNER mg/dL MILLENNIUM Specimen Anatomical Collection Method Collection Time Receive d Time (Source) Location / / Volume Laterality Blood specimen 08/20/2010 4:45 AM 011 4:57 (specimen) EDT AM EDT Benson Leahy MD CHEMISTRY ORDERABLES Performing Organization Address City/[facility]/[place] [address] CERNER MILLENNIUM Magnesium (08/20/2010 4:45 AM EDT) P athologist Signature Magnesium 0.76 0.69 - 1.07 CERNER mmol/L MILLENNIUM Specimen Anatomical Collection Method Collection Time Receive d Time (Source) Location / / Volume Laterality Blood specimen 08/20/2010 4:45 AM 011 4:57 (specimen) EDT AM EDT Benson Leahy MD CHEMISTRY ORDERABLES Performing Organization Address City/[facility]/ZIP Code Phon e Number QUINTEN MOISE[address] [facility] (ABNORMAL) Prealbumin (08/20/2010 4:45 AM EDT) athologist Signature Prealbumin 6 (L) 20 - 40 CERNER mg/dL [facility] Comment: Prealbumin levels are generally lower in the pediatric population; adult concentrations are usually attained near puberty. Specimen Anatomical Collection Method Collection Time Receive d Time (Source) Location / / Volume Laterality Blood specimen 08/20/2010 4:45 AM 011 4:57 (specimen) EDT AM EDT Dayton Zepeda III, MD CHEMISTRY ORDERABLES Performing Organization Address City/State/ZIP Code Phon e Number [address] [facility] POCT GLUCOSE LAB USE ONLY (08/20/2010 4:27 AM EDT) athologist Signature POC Glucose 168 60 - 199 CERNER mg/dL [facility] Comment: Supplemental ranges: <110 mg/dL before meals <200 mg/dL all other times of the day Specimen Anatomical Collection Method Collection Time Receive d Time (Source) Location / / Volume Laterality Blood specimen 08/20/2010 4:27 AM 011 4:27 (specimen) EDT AM EDT Benson Leahy MD POINT OF CARE TEST ORDERABLE S Performing Organization Address City/[facility]/ZIP Code Phon e Number [address] [facility] EKG 12-LEAD Is a rhythm strip needed?: No; Reason for Exam:: Tachycardia (08/20/2010 3:15 AM EDT) Component Value Ref Range Test Analysis Performed Pathologis t Method Time At Signature Ventricular rate 118 BPM MUSE SYSTEM Atrial Rate 118 BPM MUSE SYSTEM P-R Interval 136 ms MUSE SYSTEM QRS Duration 64 ms MUSE SYSTEM Q-T Interval 310 ms MUSE SYSTEM QTC Calculated 434 ms MUSE SYSTEM (Bezet) Calculated P [place] 37 degrees MUSE SYSTEM Calculated R [place] 52 degrees MUSE SYSTEM Calculated T [place] 73 degrees MUSE SYSTEM INTERPRETATION Sinus tachycardia MUSE SY STEM Low voltage QRS Serial changes of evolving Septal infarct (cited on or befor e 19-AUG-2010) Abnormal ECG When compared with ECG of 19-AUG-2010 08:43, T wave inversion now evident in Anterior leads Confirmed by MD COCHRAN BRUCE (52) on 08/20/2010 8:48:06 A M Specimen Anatomical Collection Method Collection Time Receive d Time (Source) Location / / Volume Laterality 08/20/2010 3:15 AM 1 8:48 EDT AM EDT Benson Leahy MD ECG ORDERABLES Performing Organization Address City/[facility]/ZIP Code Phon e Number MUSE SYSTEM POCT GLUCOSE LAB USE ONLY (08/20/2010 12:23 AM EDT) athologist Signature POC Glucose 158 60 - 199 CERNER mg/dL MILLENNIUM Comment: Supplemental ranges: <110 mg/dL before meals <200 mg/dL all other times of the day Specimen Anatomical Collection Method Collection Time Receive d Time (Source) Location / / Volume Laterality Blood specimen 08/20/2010 12:23 1 (specimen) AM EDT 12:23 AM EDT Benson Leahy MD POINT OF CARE TEST ORDERABLE S Performing Organization Address City/[facility]/[place] [address] CERNER MILLENNIUM POCT GLUCOSE LAB USE ONLY (08/19/2010 7:57 PM EDT) athologist Signature POC Glucose 179 60 - 199 CERNER mg/dL MILLENNIUM Comment: Supplemental ranges: <110 mg/dL before meals <200 mg/dL all other times of the day Specimen Anatomical Collection Method Collection Time Receive d Time (Source) Location / / Volume Laterality Blood specimen 08/19/2010 7:57 PM 011 7:57 (specimen) EDT PM EDT Benson Leahy MD POINT OF CARE TEST ORDERABLE S Performing Organization Address City/[facility]/[place] [address] [address] CERNER MILLENNIUM POCT GLUCOSE LAB USE ONLY (08/19/2010 3:47 PM EDT) athologist Signature POC Glucose 153 60 - 199 CERNER mg/dL MILLENNIUM Comment: Supplemental ranges: <110 mg/dL before meals <200 mg/dL all other times of the day Specimen Anatomical Collection Method Collection Time Receive d Time (Source) Location / / Volume Laterality Blood specimen 08/19/2010 3:47 PM 011 3:47 (specimen) EDT PM EDT Benson Leahy MD POINT OF CARE TEST ORDERABLE S Performing Organization Address City/State/ZIP Code Phon e Number [place] [phone] CERNER MILLENNIUM (ABNORMAL) REFLEX LAB-A-DIFF (08/19/2010 3:45 PM EDT) [facility] Method Time Signature Neutrophils % 77.8 (H) 34.0 - CERNER 71.0 % MILLENNIUM Neutr Abs (ANC) 7.57 (H) 1.50 - CERNER 6.30 MILLENNIUM x10(3)/mc L Lymphocytes % 10.1 (L) 19.0 - CERNER 53.0 % MILLENNIUM Lymphocytes Abs 1.0 1.0 - 3.6 CERNER x10(3)/mc MILLENNIUM L Monocytes % 10.8 4.0 - CERNER 13.0 % MILLENNIUM Monocyte Abs 1.1 (H) 0.2 - 1.0 CERNER x10(3)/mc MILLENNIUM L Eosinophils % 0.9 0.0 - 7.0 CERNER % MILLENNIUM Eosinophils Abs 0.1 0.0 - 0.5 CERNER x10(3)/mc MILLENNIUM L Basophils % 0.2 0.0 - 2.0 CERNER % MILLENNIUM Basophils Abs 0.0 0.0 - 0.2 CERNER x10(3)/mc MILLENNIUM L Immature Gran % 0.20 0.00 - CERNER 0.66 % MILLENNIUM Comment: Immature granulocytes(IG's)percentage an d absolute count will include metamyelocytes, myelocytes, and promyelo cytes. Blood smears from CBCs yielding IG's will be scanned manually for concor dance. If this scan disagrees with the automated IG or if promyelocytes are not ed, a manual differential will be performed. Liss Gran Abs 0.02 0.00 - 0.05 x10(3)/mcL CER NER MILLENNIUM Specimen Anatomical Collection Method Collection Time Receive d Time (Source) Location / / Volume Laterality Blood specimen 08/19/2010 3:45 PM 011 3:51 (specimen) EDT PM EDT Benson Leahy MD HEMATOLOGY ORDERABLES Performing Organization Address City/[facility]/[place] [address] CERNER MILLENNIUM (ABNORMAL) Hepatic Function Panel (08/19/2010 3:45 PM EDT) P athologist Signature Total Protein 5.2 (L) 6.4 - 8.3 CERNER gm/dL MILLENNIUM Albumin 2.4 (L) 3.2 - 5.2 CERNER gm/dL MILLENNIUM AST 50 (H) 0 - 30 CERNER unit/L MILLENNIUM ALT 25 0 - 30 CERNER unit/L MILLENNIUM Alk Phos 58 40 - 104 CERNER unit/L MILLENNIUM Total 0.5 0.2 - 1.3 CERNER Bilirubin mg/dL MILLENNIUM Bili, Direct 0.2 0.0 - 0.3 CERNER mg/dL MILLENNIUM Specimen Anatomical Collection Method Collection Time Receive d Time (Source) Location / / Volume Laterality Blood specimen 08/19/2010 3:45 PM 011 3:51 (specimen) EDT PM EDT Benson Leahy MD CHEMISTRY ORDERABLES Performing Organization Address City/[facility]/[place] [address] CERNER MILLENNIUM Lipase (08/19/2010 3:45 PM EDT) P athologist Signature Lipase 15 0 - 60 CERNER unit/L MILLENNIUM Specimen Anatomical Collection Method Collection Time Receive d Time (Source) Location / / Volume Laterality Blood specimen 08/19/2010 3:45 PM 011 3:51 (specimen) EDT PM EDT Benson Leahy MD CHEMISTRY ORDERABLES Performing Organization Address City/[facility]/[place] [address] CERNER MILLENNIUM (ABNORMAL) Amylase (08/19/2010 3:45 PM EDT) P athologist Signature Amylase 23 (L) 28 - 100 CERNER unit/L MILLENNIUM Specimen Anatomical Collection Method Collection Time Receive d Time (Source) Location / / Volume Laterality Blood specimen 08/19/2010 3:45 PM 011 3:51 (specimen) EDT PM EDT Benson Leahy MD CHEMISTRY ORDERABLES Performing Organization Address City/State/[place] [address] CERNER MILLENNIUM (ABNORMAL) Basic Metabolic Panel (non-fasting) (08/19/2010 3:45 PM EDT) P athologist Signature Glucose Lvl 142 60 - 199 CERNER mg/dL MILLENNIUM Comment: Diabetes: >=200 mg/dL plus symp toms BUN 9 8 - 18 mg/dL CERNER MILLENNIUM Creatinine 0.43 (L) 0.70 - 1.20 mg/dL CERNER MILL ENNIUM Sodium 141 135 - 145 mmol/L CERNER ORLY NIUM Potassium 4.1 3.5 - 5.0 mmol/L CERNER ORLY NIUM Comment: Please note: ??Patients with WBC >100,00 0 may have falsely elevated Potassium levels. ??For accurate Potassium quantif ication in these patients send serum separator tube (gold top) for subsequent determinations. ??Contact the Clinical Chemistry Laboratory if there are any qu estions. Chloride 111 (H) 98 - 107 mmol/L CERNER MILLENN IUM CO2 19 (L) 22 - 31 mmol/L CERNER MILLENNI UM Anion Gap 11 5 - 15 mmol/L CERNER MILLENNIU M Calcium 7.7 (L) 8.5 - 10.5 mg/dL CERNER ORLY NIUM Estimated GFR >60 >=60 CERNER MILLENNIU M Comment: The National Kidney Disease Education Pr ogram (NKDEP) has recommended all laboratories report estimated GFR (eGFR) along with plasma creatinine measurements to assist you with recognit ion of early kidney disease. Caveats: ??Plasma creatinine should be a t steady-state (unchanged within the past week). For patient s multiply eGFR by 1.2.MDRD equation has not been validated for pediatric pat ients and is only valid for patients with age >= 18 years. At present, NKDEP does NOT recommend usi ng the MDRD equation for drug dosing purposes and pharmacists should continue to use their current dosing methods. In addition, numerical eGFR values great er than 60 ml/min/1.73 square meters should be treated as > 60, and not an ex act number due to greater inaccuracies at these higher values. Per NKDEP, they classify normal renal function as any GFR >60ml/min/1.73 square meters; chronic kidney disease wh en GFR <60, and renal failure when GFR <15. ??This calculation may not be valid for patients with atypical muscle mass (very lean or obese), acute renal failur e, and in patients with diabetic kidney disease. References: http://nkdep.nih.gov/resources/NKDEP_Sug gestn4Labs_0606_508.pdf http://www.kidney.org/professionals/kls/ pdf/faq_gfr.pdf Specimen Anatomical Collection Method Collection Time Receive d Time (Source) Location / / Volume Laterality Blood specimen 08/19/2010 3:45 PM 011 3:51 (specimen) EDT PM EDT Benson Leahy MD CHEMISTRY ORDERABLES Performing Organization Address City/State/[place] [address] CERNER MILLENNIUM (ABNORMAL) CBC (with Diff) (08/19/2010 3:45 PM EDT) P athologist Signature WBC 9.7 4.0 - 10.0 CERNER x10(3)/mcL MILLENNIUM RBC 2.77 (L) 3.93 - CERNER 5.22 MILLENNIUM x10(6)/mcL Hemoglobin 8.3 (L) 11.2 - CERNER 15.7 gm/dL MILLENNIUM Hematocrit 23.8 (L) 34.0 - CERNER 45.0 % MILLENNIUM MCV 85.9 79.0 - CERNER 94.0 fL MILLENNIUM MCH 30.0 26.6 - CERNER 32.2 pg MILLENNIUM MCHC 34.9 32.0 - CERNER 36.5 gm/dL MILLENNIUM Platelets 251 145 - 370 CERNER x10(3)/mcL MILLENNIUM RDWSD 47.9 (H) 35.0 - CERNER 46.0 fL MILLENNIUM RDWCV 15.4 (H) 10.9 - CERNER 14.4 % MILLENNIUM MPV 8.9 (L) 9.0 - 12.0 CERNER fL MILLENNIUM Specimen Anatomical Collection Method Collection Time Receive d Time (Source) Location / / Volume Laterality Blood specimen 08/19/2010 3:45 PM 011 3:51 (specimen) EDT PM EDT Benson Leahy MD HEMATOLOGY ORDERABLES Performing Organization Address City/[facility] [place] [address] [facility] M[facility]UM Potassium (08/19/2010 2:00 PM EDT) athologist Signature Potassium 4.1 3.5 - 5.0 CERNER mmol/L [facility] Comment: Please note: ??Patients with WBC >100,00 0 may have falsely elevated Potassium levels. ??For accurate Potassium quantif ication in these patients send serum separator tube (gold top) for subsequent determinations. ??Contact the Clinical Chemistry Laboratory if there are any qu estions. Specimen Anatomical Collection Method Collection Time Receive d Time (Source) Location / / Volume Laterality Blood specimen 08/19/2010 2:00 PM 011 2:00 (specimen) EDT PM EDT Benson Leahy MD CHEMISTRY ORDERABLES Performing Organization Address City/[facility] [place] [address] CERNER MILLENNIUM POCT GLUCOSE LAB USE ONLY (08/19/2010 1:57 PM EDT) athologist Signature POC Glucose 124 60 - 199 CERNER mg/dL [facility] Comment: Supplemental ranges: <110 mg/dL before meals <200 mg/dL all other times of the day Specimen Anatomical Collection Method Collection Time Receive d Time (Source) Location / / Volume Laterality Blood specimen 08/19/2010 1:57 PM 011 1:57 (specimen) EDT PM EDT eBnson Leahy MD POINT OF CARE TEST ORDERABLE S Performing Organization Address City/[facility]/[place] [address] CERNER MILLENNIUM Potassium (08/19/2010 10:00 AM EDT) athologist Signature Potassium 4.2 3.5 - 5.0 CERNER mmol/L [facility] Comment: Please note: ??Patients with WBC >100,00 0 may have falsely elevated Potassium levels. ??For accurate Potassium quantif ication in these patients send serum separator tube (gold top) for subsequent determinations. ??Contact the Clinical Chemistry Laboratory if there are any qu estions. Specimen Anatomical Collection Method Collection Time Receive d Time (Source) Location / / Volume Laterality Blood specimen 08/19/2010 10:00 1 (specimen) AM EDT 10:00 AM EDT Benson Leahy MD CHEMISTRY ORDERABLES Performing Organization Address City/[facility]/ZIP Code Phon e Number [address] [facility] MILLCLEARSKY RE[facility] AVONDALEIUM POCT GLUCOSE LAB USE ONLY (08/19/2010 9:54 AM EDT) athologist Signature POC Glucose 97 60 - 199 CERNER mg/dL [facility] Comment: Supplemental ranges: <110 mg/dL before meals <200 mg/dL all other times of the day Specimen Anatomical Collection Method Collection Time Receive d Time (Source) Location / / Volume Laterality Blood specimen 08/19/2010 9:54 AM 011 9:54 (specimen) EDT AM EDT Benson Leahy MD POINT OF CARE TEST ORDERABLE S Performing Organization Address City/[facility]/[place] [address] [facility] E[facility] 12-LEAD Is a rhythm strip needed?: No; Reason for Exam:: Change in Mental Status (08/19/2010 8:43 AM EDT) Component Value Ref Range Test Analysis Performed Pathologis t Method Time At Signature Ventricular rate 129 BPM MUSE SYSTEM Atrial Rate 129 BPM MUSE SYSTEM P-R Interval 136 ms MUSE SYSTEM QRS Duration 68 ms MUSE SYSTEM Q-T Interval 300 ms MUSE SYSTEM QTC Calculated 439 ms MUSE SYSTEM (Bezet) Calculated P [place] 31 degrees MUSE SYSTEM Calculated R [place] 58 degrees MUSE SYSTEM Calculated T [place] -3 degrees MUSE SYSTEM INTERPRETATION Sinus tachycardia MUSE SY STEM Low voltage QRS Septal infarct , age undetermined Abnormal ECG No previous ECGs available Confirmed by MD Roberto, Baldemar Galindo ([id number]) on 08/19/2010 11:23:43 AM Specimen Anatomical Collection Method Collection Time Receive d Time (Source) Location / / Volume Laterality 08/19/2010 8:43 AM 1 EDT 11:23 AM EDT Zeke Richter MD ECG ORDERABLES Performing Organization Address City/State/ZIP Code Phon e Number MUSE SYSTEM POCT GLUCOSE LAB USE ONLY (08/19/2010 3:55 AM EDT) athologist Signature POC Glucose 105 60 - 199 CERNER mg/dL MILLENNIUM Comment: Supplemental ranges: <110 mg/dL before meals <200 mg/dL all other times of the day Specimen Anatomical Collection Method Collection Time Receive d Time (Source) Location / / Volume Laterality Blood specimen 08/19/2010 3:55 AM 011 3:55 (specimen) EDT AM EDT Benson Leahy MD POINT OF CARE TEST ORDERABLE S Performing Organization Address City/State/ZIP Code Phon e Number [place] [phone] CERNER MILLENNIUM (ABNORMAL) REFLEX LAB-A-DIFF (08/19/2010 2:34 AM EDT) [facility] gist Method Time Signature Neutrophils % 80.2 (H) 34.0 - CERNER 71.0 % MILLENNIUM Neutr Abs (ANC) 6.73 (H) 1.50 - CERNER 6.30 MILLENNIUM x10(3)/mc L Lymphocytes % 9.2 (L) 19.0 - CERNER 53.0 % MILLENNIUM Lymphocytes Abs 0.8 (L) 1.0 - 3.6 CERNER x10(3)/mc MILLENNIUM L Monocytes % 9.9 4.0 - CERNER 13.0 % MILLENNIUM Monocyte Abs 0.8 0.2 - 1.0 CERNER x10(3)/mc MILLENNIUM L Eosinophils % 0.4 0.0 - 7.0 CERNER % MILLENNIUM Eosinophils Abs 0.0 0.0 - 0.5 CERNER x10(3)/mc MILLENNIUM L Basophils % 0.1 0.0 - 2.0 CERNER % MILLENNIUM Basophils Abs 0.0 0.0 - 0.2 CERNER x10(3)/mc MILLENNIUM L Immature Gran % 0.20 0.00 - CERNER 0.66 % MILLENNIUM Comment: Immature granulocytes(IG's)percentage an d absolute count will include metamyelocytes, myelocytes, and promyelo cytes. Blood smears from CBCs yielding IG's will be scanned manually for concor dance. If this scan disagrees with the automated IG or if promyelocytes are not ed, a manual differential will be performed. Liss Gran Abs 0.02 0.00 - 0.05 x10(3)/mcL CER NER MILLENNIUM Specimen Anatomical Collection Method Collection Time Receive d Time (Source) Location / / Volume Laterality Blood specimen 08/19/2010 2:34 AM 011 2:38 (specimen) EDT AM EDT Benson Leahy MD HEMATOLOGY ORDERABLES Performing Organization Address City/State/[place] [address] CERNER MILLENNIUM (ABNORMAL) CBC (with Diff) (08/19/2010 2:34 AM EDT) P athologist Signature WBC 8.4 4.0 - 10.0 CERNER x10(3)/mcL MILLENNIUM RBC 2.61 (L) 3.93 - CERNER 5.22 MILLENNIUM x10(6)/mcL Hemoglobin 7.7 (L) 11.2 - CERNER 15.7 gm/dL MILLENNIUM Hematocrit 22.1 (L) 34.0 - CERNER 45.0 % MILLENNIUM MCV 84.7 79.0 - CERNER 94.0 fL MILLENNIUM MCH 29.5 26.6 - CERNER 32.2 pg MILLENNIUM MCHC 34.8 32.0 - CERNER 36.5 gm/dL MILLENNIUM Platelets 183 145 - 370 CERNER x10(3)/mcL MILLENNIUM RDWSD 47.7 (H) 35.0 - CERNER 46.0 fL MILLENNIUM RDWCV 15.3 (H) 10.9 - CERNER 14.4 % MILLENNIUM MPV 8.9 (L) 9.0 - 12.0 CERNER fL MILLENNIUM Specimen Anatomical Collection Method Collection Time Receive d Time (Source) Location / / Volume Laterality Blood specimen 08/19/2010 2:34 AM 011 2:38 (specimen) EDT AM EDT Benson Leahy MD HEMATOLOGY ORDERABLES Performing Organization Address City/State/ZIP Code Phon e Number [place] [phone] CERNER MILLENNIUM (ABNORMAL) Basic Metabolic Panel (non-fasting) (08/19/2010 2:34 AM EDT) P athologist Signature Glucose Lvl 109 60 - 199 CERNER mg/dL MILLENNIUM Comment: Diabetes: >=200 mg/dL plus symp toms BUN 8 8 - 18 mg/dL CERNER MILLENNIUM Creatinine 0.44 (L) 0.70 - 1.20 mg/dL CERNER MILL ENNIUM Sodium 140 135 - 145 mmol/L CERNER ORLY NIUM Potassium 4.0 3.5 - 5.0 mmol/L CERNER ORLY NIUM Comment: Please note: ??Patients with WBC >100,00 0 may have falsely elevated Potassium levels. ??For accurate Potassium quantif ication in these patients send serum separator tube (gold top) for subsequent determinations. ??Contact the Clinical Chemistry Laboratory if there are any qu estions. Chloride 113 (H) 98 - 107 mmol/L CERNER MILLENN IUM CO2 18 (L) 22 - 31 mmol/L CERNER MILLENNI UM Anion Gap 9 5 - 15 mmol/L CERNER MILLENNIU M Calcium 8.1 (L) 8.5 - 10.5 mg/dL CERNER ORLY NIUM Comment: result rechecked-[id number] Estimated GFR >60 >=60 CERNER MILLENNIU M Comment: The National Kidney Disease Education Pr ogram (NKDEP) has recommended all laboratories report estimated GFR (eGFR) along with plasma creatinine measurements to assist you with recognit ion of early kidney disease. Caveats: ??Plasma creatinine should be a t steady-state (unchanged within the past week). For patient s multiply eGFR by 1.2.MDRD equation has not been validated for pediatric pat ients and is only valid for patients with age >= 18 years. At present, NKDEP does NOT recommend usi ng the MDRD equation for drug dosing purposes and pharmacists should continue to use their current dosing methods. In addition, numerical eGFR values great er than 60 ml/min/1.73 square meters should be treated as > 60, and not an ex act number due to greater inaccuracies at these higher values. Per NKDEP, they classify normal renal function as any GFR >60ml/min/1.73 square meters; chronic kidney disease wh en GFR <60, and renal failure when GFR <15. ??This calculation may not be valid for patients with atypical muscle mass (very lean or obese), acute renal failur e, and in patients with diabetic kidney disease. References: http://nkdep.nih.gov/resources/NKDEP_Sug gestn4Labs_0606_508.pdf http://www.kidney.org/professionals/kls/ pdf/faq_gfr.pdf Specimen Anatomical Collection Method Collection Time Receive d Time (Source) Location / / Volume Laterality Blood specimen 08/19/2010 2:34 AM 011 2:38 (specimen) EDT AM EDT Benson Leahy MD CHEMISTRY ORDERABLES Performing Organization Address City/State/[place] [address] [facility] POCT GLUCOSE LAB USE ONLY (08/19/2010 12:36 AM EDT) athologist Signature POC Glucose 111 60 - 199 CERNER mg/dL [facility] Comment: Supplemental ranges: <110 mg/dL before meals <200 mg/dL all other times of the day Specimen Anatomical Collection Method Collection Time Receive d Time (Source) Location / / Volume Laterality Blood specimen 08/19/2010 12:36 1 (specimen) AM EDT 12:36 AM EDT Benson Leahy MD POINT OF CARE TEST ORDERABLE S Performing Organization Address City/[facility]/[place] [address] CERNER MILLENNIUM POCT GLUCOSE LAB USE ONLY (08/18/2010 8:00 PM EDT) athologist Signature POC Glucose 101 60 - 199 CERNER mg/dL MILLENNIUM Comment: Supplemental ranges: <110 mg/dL before meals <200 mg/dL all other times of the day Specimen Anatomical Collection Method Collection Time Receive d Time (Source) Location / / Volume Laterality Blood specimen 08/18/2010 8:00 PM 011 8:00 (specimen) EDT PM EDT Benson Leahy MD POINT OF CARE TEST ORDERABLE S Performing Organization Address City/[facility]/[place] [address] CERNER MILLENNIUM POCT GLUCOSE LAB USE ONLY (08/18/2010 6:09 PM EDT) athologist Signature POC Glucose 119 60 - 199 CERNER mg/dL MILLENNIUM Comment: Supplemental ranges: <110 mg/dL before meals <200 mg/dL all other times of the day Specimen Anatomical Collection Method Collection Time Receive d Time (Source) Location / / Volume Laterality Blood specimen 08/18/2010 6:09 PM 011 6:09 (specimen) EDT PM EDT Benson Leahy MD POINT OF CARE TEST ORDERABLE S Performing Organization Address City/[facility]/[place] [address] CERNER MILLENNIUM Potassium (08/18/2010 3:50 PM EDT) athologist Signature Potassium 3.8 3.5 - 5.0 CERNER mmol/L MILLENNIUM Comment: Please note: ??Patients with WBC >100,00 0 may have falsely elevated Potassium levels. ??For accurate Potassium quantif ication in these patients send serum separator tube (gold top) for subsequent determinations. ??Contact the Clinical Chemistry Laboratory if there are any qu estions. Specimen Anatomical Collection Method Collection Time Receive d Time (Source) Location / / Volume Laterality Blood specimen 08/18/2010 3:50 PM 011 3:56 (specimen) EDT PM EDT Benson Leahy MD CHEMISTRY ORDERABLES Performing Organization Address City/[facility]/[place] [address] CERNER MILLENNIUM POCT GLUCOSE LAB USE ONLY (08/18/2010 2:07 PM EDT) athologist Signature POC Glucose 120 60 - 199 CERNER mg/dL MILLENNIUM Comment: Supplemental ranges: <110 mg/dL before meals <200 mg/dL all other times of the day Specimen Anatomical Collection Method Collection Time Receive d Time (Source) Location / / Volume Laterality Blood specimen 08/18/2010 2:07 PM 011 2:07 (specimen) EDT PM EDT Benson Leahy MD POINT OF CARE TEST ORDERABLE S Performing Organization Address City/[facility]/ZIP Code Phon e Number [address] CERNER MILLENNIUM POCT GLUCOSE LAB USE ONLY (08/18/2010 8:07 AM EDT) athologist Signature POC Glucose 110 60 - 199 CERNER mg/dL MILLENNIUM Comment: Supplemental ranges: <110 mg/dL before meals <200 mg/dL all other times of the day Specimen Anatomical Collection Method Collection Time Receive d Time (Source) Location / / Volume Laterality Blood specimen 08/18/2010 8:07 AM 011 8:07 (specimen) EDT AM EDT Benson Leahy MD POINT OF CARE TEST ORDERABLE S Performing Organization Address City/[facility]/ZIP Code Phon e Number [address] CERNER MILLENNIUM Potassium (08/18/2010 6:15 AM EDT) P athologist Signature Potassium 4.6 3.5 - 5.0 CERNER mmol/L MILLENNIUM Comment: Please note: ??Patients with WBC >100,00 0 may have falsely elevated Potassium levels. ??For accurate Potassium quantif ication in these patients send serum separator tube (gold top) for subsequent determinations. ??Contact the Clinical Chemistry Laboratory if there are any qu estions. Specimen Anatomical Collection Method Collection Time Receive d Time (Source) Location / / Volume Laterality Blood specimen 08/18/2010 6:15 AM 011 6:20 (specimen) EDT AM EDT Ivett Petit MD CHEMISTRY ORDERABLES Performing Organization Address City/[facility]/ZIP Code Phon e Number [address] CERNER MILLENNIUM POCT GLUCOSE LAB USE ONLY (08/18/2010 6:01 AM EDT) P athologist Signature POC Glucose 107 60 - 199 CERNER mg/dL MILLENNIUM Comment: Supplemental ranges: <110 mg/dL before meals <200 mg/dL all other times of the day Specimen Anatomical Collection Method Collection Time Receive d Time (Source) Location / / Volume Laterality Blood specimen 08/18/2010 6:01 AM 011 6:01 (specimen) EDT AM EDT Benson Leahy MD POINT OF CARE TEST ORDERABLE S Performing Organization Address City/[facility]/ZIP Code Phon e Number [address] CERNER MILLENNIUM (ABNORMAL) REFLEX LAB-A-DIFF (08/18/2010 2:00 AM EDT) Patholo gist Method Time Signature Neutrophils % 80.9 (H) 34.0 - CERNER 71.0 % MILLENNIUM Neutr Abs (ANC) 7.26 (H) 1.50 - CERNER 6.30 MILLENNIUM x10(3)/mc L Lymphocytes % 8.4 (L) 19.0 - CERNER 53.0 % MILLENNIUM Lymphocytes Abs 0.8 (L) 1.0 - 3.6 CERNER x10(3)/mc MILLENNIUM L Monocytes % 8.5 4.0 - CERNER 13.0 % MILLENNIUM Monocyte Abs 0.8 0.2 - 1.0 CERNER x10(3)/mc MILLENNIUM L Eosinophils % 1.9 0.0 - 7.0 CERNER % MILLENNIUM Eosinophils Abs 0.2 0.0 - 0.5 CERNER x10(3)/mc MILLENNIUM L Basophils % 0.1 0.0 - 2.0 CERNER % MILLENNIUM Basophils Abs 0.0 0.0 - 0.2 CERNER x10(3)/mc MILLENNIUM L Immature Gran % 0.20 0.00 - CERNER 0.66 % MILLENNIUM Comment: Immature granulocytes(IG's)percentage an d absolute count will include metamyelocytes, myelocytes, and promyelo cytes. Blood smears from CBCs yielding IG's will be scanned manually for concor dance. If this scan disagrees with the automated IG or if promyelocytes are not ed, a manual differential will be performed. Liss Gran Abs 0.02 0.00 - 0.05 x10(3)/mcL CER NER MILLENNIUM Specimen Anatomical Collection Method Collection Time Receive d Time (Source) Location / / Volume Laterality Blood specimen 08/18/2010 2:00 AM 011 2:02 (specimen) EDT AM EDT Benson Leahy MD HEMATOLOGY ORDERABLES Performing Organization Address City/State/[place] [address] CERNER MILLENNIUM (ABNORMAL) CBC (with Diff) (08/18/2010 2:00 AM EDT) P athologist Signature WBC 9.0 4.0 - 10.0 CERNER x10(3)/mcL MILLENNIUM RBC 2.75 (L) 3.93 - CERNER 5.22 MILLENNIUM x10(6)/mcL Hemoglobin 8.3 (L) 11.2 - CERNER 15.7 gm/dL MILLENNIUM Hematocrit 23.5 (L) 34.0 - CERNER 45.0 % MILLENNIUM MCV 85.5 79.0 - CERNER 94.0 fL MILLENNIUM MCH 30.2 26.6 - CERNER 32.2 pg MILLENNIUM MCHC 35.3 32.0 - CERNER 36.5 gm/dL MILLENNIUM Platelets 144 (L) 145 - 370 CERNER x10(3)/mcL MILLENNIUM RDWSD 49.5 (H) 35.0 - CERNER 46.0 fL MILLENNIUM RDWCV 16.0 (H) 10.9 - CERNER 14.4 % MILLENNIUM MPV 9.5 9.0 - 12.0 CERNER fL MILLENNIUM Specimen Anatomical Collection Method Collection Time Receive d Time (Source) Location / / Volume Laterality Blood specimen 08/18/2010 2:00 AM 011 2:02 (specimen) EDT AM EDT Benson Leahy MD HEMATOLOGY ORDERABLES Performing Organization Address City/State/[place] [address] CERNER MILLENNIUM (ABNORMAL) Basic Metabolic Panel (non-fasting) (08/18/2010 2:00 AM EDT) P athologist Signature Glucose Lvl 115 60 - 199 CERNER mg/dL MILLENNIUM Comment: Diabetes: >=200 mg/dL plus symp toms BUN 6 (L) 8 - 18 mg/dL CERNER MILLENNIUM Creatinine 0.44 (L) 0.70 - 1.20 mg/dL CERNER MILL ENNIUM Sodium 137 135 - 145 mmol/L CERNER ORLY NIUM Potassium 3.9 3.5 - 5.0 mmol/L CERNER ORLY NIUM Comment: Please note: ??Patients with WBC >100,00 0 may have falsely elevated Potassium levels. ??For accurate Potassium quantif ication in these patients send serum separator tube (gold top) for subsequent determinations. ??Contact the Clinical Chemistry Laboratory if there are any qu estions. Chloride 112 (H) 98 - 107 mmol/L CERNER MILLENN IUM CO2 20 (L) 22 - 31 mmol/L CERNER MILLENNI UM Anion Gap 5 5 - 15 mmol/L CERNER MILLENNIU M Calcium 7.0 (L) 8.5 - 10.5 mg/dL CERNER ORLY NIUM Estimated GFR >60 >=60 CERNER MILLENNIU M Comment: The National Kidney Disease Education Pr ogram (NKDEP) has recommended all laboratories report estimated GFR (eGFR) along with plasma creatinine measurements to assist you with recognit ion of early kidney disease. Caveats: ??Plasma creatinine should be a t steady-state (unchanged within the past week). For patient s multiply eGFR by 1.2.MDRD equation has not been validated for pediatric pat ients and is only valid for patients with age >= 18 years. At present, NKDEP does NOT recommend usi ng the MDRD equation for drug dosing purposes and pharmacists should continue to use their current dosing methods. In addition, numerical eGFR values great er than 60 ml/min/1.73 square meters should be treated as > 60, and not an ex act number due to greater inaccuracies at these higher values. Per NKDEP, they classify normal renal function as any GFR >60ml/min/1.73 square meters; chronic kidney disease wh en GFR <60, and renal failure when GFR <15. ??This calculation may not be valid for patients with atypical muscle mass (very lean or obese), acute renal failur e, and in patients with diabetic kidney disease. References: http://nkdep.nih.gov/resources/NKDEP_Sug gestn4Labs_0606_508.pdf http://www.kidney.org/professionals/kls/ pdf/faq_gfr.pdf Specimen Anatomical Collection Method Collection Time Receive d Time (Source) Location / / Volume Laterality Blood specimen 08/18/2010 2:00 AM 011 2:02 (specimen) EDT AM EDT Benson Leahy MD CHEMISTRY ORDERABLES Performing Organization Address City/[facility]/ZIP Code Phon e Number [address] [facility] [employer] TechnologyCLE[facility] DIGITALE POCT GLUCOSE LAB USE ONLY (08/18/2010 1:54 AM EDT) P athologist Signature POC Glucose 119 60 - 199 CERNER mg/dL [facility] Comment: Supplemental ranges: <110 mg/dL before meals <200 mg/dL all other times of the day Specimen Anatomical Collection Method Collection Time Receive d Time (Source) Location / / Volume Laterality Blood specimen 08/18/2010 1:54 AM 011 1:54 (specimen) EDT AM EDT Benson Leahy MD POINT OF CARE TEST ORDERABLE S Performing Organization Address City/State/[place] [address] CERNER MILLENNIUM POCT GLUCOSE LAB USE ONLY (08/17/2010 9:08 PM EDT) athologist Signature POC Glucose 108 60 - 199 CERNER mg/dL MILLENNIUM Comment: Supplemental ranges: <110 mg/dL before meals <200 mg/dL all other times of the day Specimen Anatomical Collection Method Collection Time Receive d Time (Source) Location / / Volume Laterality Blood specimen 08/17/2010 9:08 PM 011 9:08 (specimen) EDT PM EDT Benson Leahy MD POINT OF CARE TEST ORDERABLE S Performing Organization Address City/[facility]/ZIP Code Phon e Number [address] CERNER MILLENNIUM Potassium (08/17/2010 6:15 PM EDT) athologist Signature Potassium 4.4 3.5 - 5.0 CERNER mmol/L [facility]UM Comment: Please note: ??Patients with WBC >100,00 0 may have falsely elevated Potassium levels. ??For accurate Potassium quantif ication in these patients send serum separator tube (gold top) for subsequent determinations. ??Contact the Clinical Chemistry Laboratory if there are any qu estions. Specimen Anatomical Collection Method Collection Time Receive d Time (Source) Location / / Volume Laterality Blood specimen 08/17/2010 6:15 PM 011 6:21 (specimen) EDT PM EDT Benson Leahy MD CHEMISTRY ORDERABLES Performing Organization Address City/[facility]/ZIP Code Phon e Number [address] CERNER MILLENNIUM POCT GLUCOSE LAB USE ONLY (08/17/2010 5:06 PM EDT) athologist Signature POC Glucose 113 60 - 199 CERNER mg/dL MILLENNIUM Comment: Supplemental ranges: <110 mg/dL before meals <200 mg/dL all other times of the day Specimen Anatomical Collection Method Collection Time Receive d Time (Source) Location / / Volume Laterality Blood specimen 08/17/2010 5:06 PM 011 5:06 (specimen) EDT PM EDT Benson Leahy MD POINT OF CARE TEST ORDERABLE S Performing Organization Address City/State/[place] [address] CERNER MILLCLEARSKY REHABILITATION HOSPITAL OF AVONDALEIUM Duplex Study for DVT, Bilat legs (08/17/2010 3:21 PM EDT) Component Value Ref Test Analysis Performed At [facility] gist Range Method Time Signature VB Text VASCUBASE Report Department: Vascular Surgery Lab Patient: [id number] (DEN HAN) CPT Code: 05286 ICD-9: 959.8 Referring Physician: JASON BROWN Indication: ? s/p multi trauma ICD9 Diagnosis Code: 959.8 RIGHT: Patent common femoral vein and popliteal vein with sp ontaneous, respirophasic Doppler wavefo sean that respond normally to augmentation maneuvers. The common femoral vein, sap henofemoral junction, femoral vein through the thigh and the popliteal vein are fully compressible. C annot visualize the posterior tibial or peroneal veins due to a cast; therefore, cannot exclude calf vein thrombus. LEFT: Patent common femoral vein and popliteal vein with spo ntaneous, respirophasic Doppler wavefo sean that respond normally to augmentation maneuvers. The common femoral vein, sap henofemoral junction, femoral vein through the thigh and the popliteal vein are fully compressible. Unable to v isualize the calf veins due to edema; therefore cannot exclude thrombus. Interpretation: RIGHT: No evidence of fem-pop lower extremity deep vein thro mbosis. Cannot exclude calf vein thrombus. LEFT: No evidence of fem-pop lower extremity deep vein throm bosis. Cannot exclude calf vein thrombus. Signed by MARCUS JIMENES on 2010-08-17 05:06:35 PM VB Text End of Report VASCUBASE Report Specimen (Source) Anatomical Collection Method Collection Time Re ceived Time Location / / Volume Laterality 08/17/2010 3:21 PM EDT Jason Brown MD VASCULAR ORDERABLES Performing Organization Address City/State/ZIP Code Phon e Number [employer] POCT GLUCOSE LAB USE ONLY (08/17/2010 1:01 PM EDT) athologist Signature POC Glucose 94 60 - 199 CERNER mg/dL MILLENNIUM Comment: Supplemental ranges: <110 mg/dL before meals <200 mg/dL all other times of the day Specimen Anatomical Collection Method Collection Time Receive d Time (Source) Location / / Volume Laterality Blood specimen 08/17/2010 1:01 PM 011 1:01 (specimen) EDT PM EDT Benson Leahy MD POINT OF CARE TEST ORDERABLE S Performing Organization Address City/[facility]/[place] [address] CERNER MILLENNIUM Potassium (08/17/2010 1:00 PM EDT) P athologist Signature Potassium 3.8 3.5 - 5.0 CERNER mmol/L [facility] Comment: Please note: ??Patients with WBC >100,00 0 may have falsely elevated Potassium levels. ??For accurate Potassium quantif ication in these patients send serum separator tube (gold top) for subsequent determinations. ??Contact the Clinical Chemistry Laboratory if there are any qu estions. Specimen Anatomical Collection Method Collection Time Receive d Time (Source) Location / / Volume Laterality Blood specimen 08/17/2010 1:00 PM 011 1:15 (specimen) EDT PM EDT Benson Leahy MD CHEMISTRY ORDERABLES Performing Organization Address City/[facility]/ZIP Code Phon e Number [address] CERNER MILLENNIUM POCT GLUCOSE LAB USE ONLY (08/17/2010 9:11 AM EDT) P athologist Signature POC Glucose 110 60 - 199 CERNER mg/dL [facility] Comment: Supplemental ranges: <110 mg/dL before meals <200 mg/dL all other times of the day Specimen Anatomical Collection Method Collection Time Receive d Time (Source) Location / / Volume Laterality Blood specimen 08/17/2010 9:11 AM 011 9:11 (specimen) EDT AM EDT Benson Leahy MD POINT OF CARE TEST ORDERABLE S Performing Organization Address City/[facility]/[place] [address] CERNER MILLENNIUM Potassium (08/17/2010 9:10 AM EDT) P athologist Signature Potassium 4.1 3.5 - 5.0 CERNER mmol/L MILLENNIUM Comment: Please note: ??Patients with WBC >100,00 0 may have falsely elevated Potassium levels. ??For accurate Potassium quantif ication in these patients send serum separator tube (gold top) for subsequent determinations. ??Contact the Clinical Chemistry Laboratory if there are any qu estions. Specimen Anatomical Collection Method Collection Time Receive d Time (Source) Location / / Volume Laterality Blood specimen 08/17/2010 9:10 AM 011 9:17 (specimen) EDT AM EDT Benson Leahy MD CHEMISTRY ORDERABLES Performing Organization Address City/[facility]/[place] [address] [facility] MILLENNIUM POCT GLUCOSE LAB USE ONLY (08/17/2010 4:11 AM EDT) athologist Signature POC Glucose 115 60 - 199 CERNER mg/dL [facility] Comment: Supplemental ranges: <110 mg/dL before meals <200 mg/dL all other times of the day Specimen Anatomical Collection Method Collection Time Receive d Time (Source) Location / / Volume Laterality Blood specimen 08/17/2010 4:11 AM 011 4:11 (specimen) EDT AM EDT Benson Leahy MD POINT OF CARE TEST ORDERABLE S Performing Organization Address City/[facility]/[place] [address] CERNER MILLENNIUM (ABNORMAL) REFLEX LAB-BLOOD GAS 2 ARTERIAL (08/17/2010 4:05 AM EDT) Patholo gist Method Time Signature pH Art 7.34 (L) CERNER MILLENNIUM pCO2 Art 29 (L) mmHg CERNER MILLENNIUM pO2 Art 81 (L) mmHg CERNER MILLENNIUM HCO3 Art 15.1 (L) mmol/L CERNER MILLENNIUM BE Art -10.7 (L) mmol/L CERNER MILLENNIUM Hgb Blood Gas 7.9 (L) gm/dL CERNER MILLENNIUM Comment: Total Hemoglobin (in gm/dL) ?[place] [facility] [place]ematology ran ges: ?Age ?Referen ce Range Less than 3 days ?14.5 to 22.5 3 days to 2 weeks ? 12.5 to 20.5 2 weeks to 1 month ?10.0 to 18.0 1 to 6 months ?9.4 to 14 .0 6 months to 2 years ? 10.5 to 13.5 2 to 6 years ?11.5 to 13 .5 6 to 12 years ? 11.5 to 15. 5 12 to 18 years (female) 12.0 to 16.0 ? (male) ?? 13.0 to 16.0 > 18 years ? (female) 11.2 to 15.7 ? (male) ?? 13.7 to 17.5 O2HB Art 93.8 (L) % CERNER MILLENNIUM COHB Art 1.7 % CERNER MILLENNIUM Comment: Nonsmokers: 0.5-1.5% COHB Smokers: Variable, but usually less than 10% Toxic: 20-30% COHB Lethal: Greater than 60% COHB METHB Art 0.5 % CERNER MILLENNIUM Na Whole Blood 138 mmol/L CERNER MILLENNI UM K Whole Blood 3.2 (L) mmol/L CERNER MILLENNIU M Comment: Please note: Patients with WBC >100,000 may have falsely elevated Potassium levels. Contact the Clinical Chemistry L aboratory if there are any questions. ICa Whole Blood 1.04 (L) mmol/L CERNER MILLENN IUM Comment: Reference Ranges: ?? < 19 yrs: 1.22 - 1.37 mmol/L ? Adults: 1.15 - 1.33 mmol/L Note: ??Total bilirubin higher than 20 m g/dL may lead to falsely low ionized calcium. CL Whole Blood 119 (H) mmol/L CERNER MILLENNI UM Gluc Whole Bld 91 mg/dL CERNER MILLENNI UM Comment: Diabetes: >=200 mg/dL plus symp toms. FIO2 Art 30 % CERNER MILLENNIUM PF Ratio Art 270 CERNER MILLENNIUM Specimen Anatomical Collection Method Collection Time Receive d Time (Source) Location / / Volume Laterality Blood specimen 08/17/2010 4:05 AM 011 4:05 (specimen) EDT AM EDT Benson Leahy MD CHEMISTRY ORDERABLES Performing Organization Address City/[facility] [place] [address] CERNER MILLENNIUM REFLEX LAB-SCAN, PERIPHERAL BLOOD (08/17/2010 4:00 AM EDT) [facility] [employer] Method Time Signature Plat Estimate Normal CERNER MILLENNIUM RBC Morphology Abnormal CERNER MILLENNIUM Microcytes 1-5 /HPF CERNER MILLENNIUM Ovalocytes 1-5 /HPF CERNER MILLENNIUM [place] Cells 1-5 /HPF CERNER MILLENNIUM Giant Less than 1 /HPF CERNER Platelets MILLENNIUM Specimen Anatomical Collection Method Collection Time Receive d Time (Source) Location / / Volume Laterality Blood specimen 08/17/2010 4:00 AM 011 4:14 (specimen) EDT AM EDT Benson Leahy MD HEMATOLOGY ORDERABLES Performing Organization Address City/[facility]/ZIP [facility] [place] [address] CERNER MILLENNIUM (ABNORMAL) REFLEX LAB-A-DIFF (08/17/2010 4:00 AM EDT) [facility] [employer] Method Time Signature Neutrophils % 74.7 (H) 34.0 - CERNER 71.0 % MILLENNIUM Neutr Abs (ANC) 6.00 1.50 - CERNER 6.30 MILLENNIUM x10(3)/mc L Lymphocytes % 13.0 (L) 19.0 - CERNER 53.0 % MILLENNIUM Lymphocytes Abs 1.1 1.0 - 3.6 CERNER x10(3)/mc MILLENNIUM L Monocytes % 10.4 4.0 - CERNER 13.0 % MILLENNIUM Monocyte Abs 0.8 0.2 - 1.0 CERNER x10(3)/mc MILLENNIUM L Eosinophils % 1.6 0.0 - 7.0 CERNER % MILLENNIUM Eosinophils Abs 0.1 0.0 - 0.5 CERNER x10(3)/mc MILLENNIUM L Basophils % 0.2 0.0 - 2.0 CERNER % MILLENNIUM Basophils Abs 0.0 0.0 - 0.2 CERNER x10(3)/mc MILLENNIUM L Immature Gran % 0.10 0.00 - CERNER 0.66 % MILLENNIUM Comment: Immature granulocytes(IG's)percentage an d absolute count will include metamyelocytes, myelocytes, and promyelo cytes. Blood smears from CBCs yielding IG's will be scanned manually for concor dance. If this scan disagrees with the automated IG or if promyelocytes are not ed, a manual differential will be performed. Liss Gran Abs 0.01 0.00 - 0.05 x10(3)/mcL CER NER MILLENNIUM Specimen Anatomical Collection Method Collection Time Receive d Time (Source) Location / / Volume Laterality Blood specimen 08/17/2010 4:00 AM 011 4:14 (specimen) EDT AM EDT Benson Leahy MD HEMATOLOGY ORDERABLES Performing Organization Address City/State/ZIP Code Phon e Number [place] [id number] CERNER MILLENNIUM (ABNORMAL) CBC (with Diff) (08/17/2010 4:00 AM EDT) P athologist Signature WBC 8.1 4.0 - 10.0 CERNER x10(3)/mcL MILLENNIUM RBC 2.82 (L) 3.93 - CERNER 5.22 MILLENNIUM x10(6)/mcL Hemoglobin 8.2 (L) 11.2 - CERNER 15.7 gm/dL MILLENNIUM Hematocrit 23.7 (L) 34.0 - CERNER 45.0 % MILLENNIUM MCV 84.0 79.0 - CERNER 94.0 fL MILLENNIUM MCH 29.1 26.6 - CERNER 32.2 pg MILLENNIUM MCHC 34.6 32.0 - CERNER 36.5 gm/dL MILLENNIUM Platelets 138 (L) 145 - 370 CERNER x10(3)/mcL MILLENNIUM RDWSD 47.5 (H) 35.0 - CERNER 46.0 fL MILLENNIUM RDWCV 15.3 (H) 10.9 - CERNER 14.4 % MILLENNIUM MPV 9.4 9.0 - 12.0 CERNER fL MILLENNIUM Specimen Anatomical Collection Method Collection Time Receive d Time (Source) Location / / Volume Laterality Blood specimen 08/17/2010 4:00 AM 011 4:14 (specimen) EDT AM EDT Benson Leahy MD HEMATOLOGY ORDERABLES Performing Organization Address City/State/[place] [address] CERNER MILLENNIUM (ABNORMAL) Basic Metabolic Panel (non-fasting) (08/17/2010 4:00 AM EDT) P athologist Signature Glucose Lvl 104 60 - 199 CERNER mg/dL MILLENNIUM Comment: Diabetes: >=200 mg/dL plus symp toms BUN 9 8 - 18 mg/dL CERNER MILLENNIUM Creatinine 0.48 (L) 0.70 - 1.20 mg/dL CERNER MILL ENNIUM Sodium 141 135 - 145 mmol/L CERNER ORLY NIUM Potassium 3.3 (L) 3.5 - 5.0 mmol/L CERNER ORLY NIUM Comment: Please note: ??Patients with WBC >100,00 0 may have falsely elevated Potassium levels. ??For accurate Potassium quantif ication in these patients send serum separator tube (gold top) for subsequent determinations. ??Contact the Clinical Chemistry Laboratory if there are any qu estions. Chloride 119 (H) 98 - 107 mmol/L CERNER MILLENN IUM CO2 17 (L) 22 - 31 mmol/L CERNER MILLENNI UM Anion Gap 5 5 - 15 mmol/L CERNER MILLENNIU M Calcium 6.6 (Critical) 8.5 - 10.5 mg/dL CERNER M ILLENNIUM Comment: Results rechecked. Called by: [facility], Read back by: Ashlee Berry, Date/Time:08/17/10 05:02. Estimated GFR >60 >=60 CERNER MILLENNIU M Comment: The National Kidney Disease Education Pr ogram (NKDEP) has recommended all laboratories report estimated GFR (eGFR) along with plasma creatinine measurements to assist you with recognit ion of early kidney disease. Caveats: ??Plasma creatinine should be a t steady-state (unchanged within the past week). For patient s multiply eGFR by 1.2.MDRD equation has not been validated for pediatric pat ients and is only valid for patients with age >= 18 years. At present, NKDEP does NOT recommend usi ng the MDRD equation for drug dosing purposes and pharmacists should continue to use their current dosing methods. In addition, numerical eGFR values great er than 60 ml/min/1.73 square meters should be treated as > 60, and not an ex act number due to greater inaccuracies at these higher values. Per NKDEP, they classify normal renal function as any GFR >60ml/min/1.73 square meters; chronic kidney disease wh en GFR <60, and renal failure when GFR <15. ??This calculation may not be valid for patients with atypical muscle mass (very lean or obese), acute renal failur e, and in patients with diabetic kidney disease. References: http://nkdep.nih.gov/resources/NKDEP_Sug gestn4Labs_0606_508.pdf http://www.kidney.org/professionals/kls/ pdf/faq_gfr.pdf Specimen Anatomical Collection Method Collection Time Receive d Time (Source) Location / / Volume Laterality Blood specimen 08/17/2010 4:00 AM 011 4:14 (specimen) EDT AM EDT Benson Leahy MD CHEMISTRY ORDERABLES Performing Organization Address City/State/[place] [address] [facility] [employer] POCT GLUCOSE LAB USE ONLY (08/17/2010 12:03 AM EDT) P athologist Signature POC Glucose 106 60 - 199 CERNER mg/dL [employer] Comment: Supplemental ranges: <110 mg/dL before meals <200 mg/dL all other times of the day Specimen Anatomical Collection Method Collection Time Receive d Time (Source) Location / / Volume Laterality Blood specimen 08/17/2010 12:03 1 (specimen) AM EDT 12:03 AM EDT Benson Leahy MD POINT OF CARE TEST ORDERABLE S Performing Organization Address City/[facility]/ZIP Code Phon e Number [address] CERNER MILLENNIUM Lactic acid, plasma (08/16/2010 8:50 PM EDT) athologist Signature Lactate 0.8 0.5 - 2.2 CERNER mmol/L MILLENNIUM Specimen Anatomical Collection Method Collection Time Receive d Time (Source) Location / / Volume Laterality Blood specimen 08/16/2010 8:50 PM 011 8:56 (specimen) EDT PM EDT Ivett Petit MD CHEMISTRY ORDERABLES Performing Organization Address City/[facility]/[place] [address] CERNER MILLENNIUM POCT GLUCOSE LAB USE ONLY (08/16/2010 7:54 PM EDT) athologist Signature POC Glucose 107 60 - 199 CERNER mg/dL MILLENNIUM Comment: Supplemental ranges: <110 mg/dL before meals <200 mg/dL all other times of the day Specimen Anatomical Collection Method Collection Time Receive d Time (Source) Location / / Volume Laterality Blood specimen 08/16/2010 7:54 PM 011 7:54 (specimen) EDT PM EDT Benson Leahy MD POINT OF CARE TEST ORDERABLE S Performing Organization Address City/[facility]/[place] [address] CERNER MILLENNIUM POCT GLUCOSE LAB USE ONLY (08/16/2010 6:01 PM EDT) athologist Signature POC Glucose 108 60 - 199 CERNER mg/dL MILLENNIUM Comment: Supplemental ranges: <110 mg/dL before meals <200 mg/dL all other times of the day Specimen Anatomical Collection Method Collection Time Receive d Time (Source) Location / / Volume Laterality Blood specimen 08/16/2010 6:01 PM 011 6:01 (specimen) EDT PM EDT Benson Leahy MD POINT OF CARE TEST ORDERABLE S Performing Organization Address City/State/ZIP Code Phon e Number [place] [phone] CERNER MILLENNIUM (ABNORMAL) REFLEX LAB-A-DIFF (08/16/2010 6:00 PM EDT) [facility] Method Time Signature Neutrophils % 77.4 (H) 34.0 - CERNER 71.0 % MILLENNIUM Neutr Abs (ANC) 7.27 (H) 1.50 - CERNER 6.30 MILLENNIUM x10(3)/mc L Lymphocytes % 11.7 (L) 19.0 - CERNER 53.0 % MILLENNIUM Lymphocytes Abs 1.1 1.0 - 3.6 CERNER x10(3)/mc MILLENNIUM L Monocytes % 10.2 4.0 - CERNER 13.0 % MILLENNIUM Monocyte Abs 1.0 0.2 - 1.0 CERNER x10(3)/mc MILLENNIUM L Eosinophils % 0.3 0.0 - 7.0 CERNER % MILLENNIUM Eosinophils Abs 0.0 0.0 - 0.5 CERNER x10(3)/mc MILLENNIUM L Basophils % 0.2 0.0 - 2.0 CERNER % MILLENNIUM Basophils Abs 0.0 0.0 - 0.2 CERNER x10(3)/mc MILLENNIUM L Immature Gran % 0.20 0.00 - CERNER 0.66 % MILLENNIUM Comment: Immature granulocytes(IG's)percentage an d absolute count will include metamyelocytes, myelocytes, and promyelo cytes. Blood smears from CBCs yielding IG's will be scanned manually for concor dance. If this scan disagrees with the automated IG or if promyelocytes are not ed, a manual differential will be performed. Liss Gran Abs 0.02 0.00 - 0.05 x10(3)/mcL CER NER MILLENNIUM Specimen Anatomical Collection Method Collection Time Receive d Time (Source) Location / / Volume Laterality Blood specimen 08/16/2010 6:00 PM 011 6:11 (specimen) EDT PM EDT Ivett Petit MD HEMATOLOGY ORDERABLES Performing Organization Address City/State/ZIP Code Phon [place] [address] CERNER MILLENNIUM (ABNORMAL) REFLEX LAB-BLOOD GAS 2 ARTERIAL (08/16/2010 6:00 PM EDT) [facility] gist Method Time Signature pH Art 7.32 (L) CERNER MILLENNIUM pCO2 Art 30 (L) mmHg CERNER MILLENNIUM pO2 Art 84 (L) mmHg CERNER MILLENNIUM HCO3 Art 14.9 (L) mmol/L CERNER MILLENNIUM BE Art -11.2 (L) mmol/L CERNER MILLENNIUM Hgb Blood Gas 9.7 (L) gm/dL CERNER MILLENNIUM Comment: Total Hemoglobin (in gm/dL) ?Based [place] [facility] Hematology ran ges: ?Age ?Referen ce Range Less than 3 days ?14.5 to 22.5 3 days to 2 weeks ? 12.5 to 20.5 2 weeks to 1 month ?10.0 to 18.0 1 to 6 months ?9.4 to 14 .0 6 months to 2 years ? 10.5 to 13.5 2 to 6 years ?11.5 to 13 .5 6 to 12 years ? 11.5 to 15. 5 12 to 18 years (female) 12.0 to 16.0 ? (male) ?? 13.0 to 16.0 > 18 years ? (female) 11.2 to 15.7 ? (male) ?? 13.7 to 17.5 O2HB Art 95.1 % CERNER MILLENNIUM COHB Art 0.6 % CERNER MILLENNIUM Comment: Nonsmokers: 0.5-1.5% COHB Smokers: Variable, but usually less than 10% Toxic: 20-30% COHB Lethal: Greater than 60% COHB METHB Art 0.3 % CERNER MILLENNIUM Na Whole Blood 138 mmol/L CERNER MILLENNI UM K Whole Blood 3.2 (L) mmol/L CERNER MILLENNIU M Comment: Please note: Patients with WBC >100,000 may have falsely elevated Potassium levels. Contact the Clinical Chemistry L aboratory if there are any questions. ICa Whole Blood 1.02 (L) mmol/L CERNER MILLENN IUM Comment: Reference Ranges: ?? < 19 yrs: 1.22 - 1.37 mmol/L ? Adults: 1.15 - 1.33 mmol/L Note: ??Total bilirubin higher than 20 m g/dL may lead to falsely low ionized calcium. CL Whole Blood 120 (H) mmol/L CERNER MILLENNI UM Gluc Whole Bld 106 mg/dL CERNER MILLENNI UM Comment: Diabetes: >=200 mg/dL plus symp toms. FIO2 Art 30 % CERNER MILLENNIUM PF Ratio Art 280 CERNER MILLENNIUM Specimen Anatomical Collection Method Collection Time Receive d Time (Source) Location / / Volume Laterality Blood specimen 08/16/2010 6:00 PM 011 6:00 (specimen) EDT PM EDT Benson Leahy MD CHEMISTRY ORDERABLES Performing Organization Address City/State/ZIP Code Phon e Number [place] [id number] CERNER MILLENNIUM (ABNORMAL) CBC (with Diff) (08/16/2010 6:00 PM EDT) P athologist Signature WBC 9.4 4.0 - 10.0 CERNER x10(3)/mcL MILLENNIUM RBC 3.18 (L) 3.93 - CERNER 5.22 MILLENNIUM x10(6)/mcL Hemoglobin 9.4 (L) 11.2 - CERNER 15.7 gm/dL MILLENNIUM Comment: Patient Transfused Hematocrit 26.9 (L) 34.0 - 45.0 % CERNER MILLENNI UM MCV 84.6 79.0 - 94.0 fL CERNER MILLENNI UM MCH 29.6 26.6 - 32.2 pg CERNER MILLENNI UM MCHC 34.9 32.0 - 36.5 gm/dL CERNER MILLE NNIUM Platelets 153 145 - 370 x10(3)/mcL DAVID HERNANDEZ LLENNIUM RDWSD 45.4 35.0 - 46.0 fL DAVID MENDOZA UM RDWCV 14.7 (H) 10.9 - 14.4 % DAVID GAN M MPV 9.5 9.0 - 12.0 fL DAVID GAN M Specimen Anatomical Collection Method Collection Time Receive d Time (Source) Location / / Volume Laterality Blood specimen 08/16/2010 6:00 PM 011 6:11 (specimen) EDT PM EDT Ivett Petit MD HEMATOLOGY ORDERABLES Performing Organization Address City/State/[place] [address] DAVID LIN Transfuse RBC (08/16/2010 5:01 PM EDT) Jason Brown MD NURSING TREATMENT ORDERABLES - BLOOD ADMIN CT [place] WITH CONTRAST (08/16/2010 4:10 PM EDT) Anatomical Region Laterality Modality Neck, Head Computed Tomography Specimen (Source) Anatomical Collection Method Collection Time Re ceived Time Location / / Volume Laterality 08/16/2010 4:10 PM EDT Impressions 08/17/2010 10:04 AM EDT IMPRESSION: ??Interval evolution of the known hemorrhages without new hemorrhages. ?? CTA OF THE [place] WITH CONTRAS T: ??Again identified is the irregular vascular blush just distal to the origin of the right AICA. ??This is unchanged in appearance compared to the CTA dated yesterday. ??The differential remains the same and includes an aneurysm versus vascular malformation versus venous opacification. ??This should be further evaluated at some point with a conventional catheter angiogram, which w ill give both better spacial and temporal resolution. ??Otherwise, no abn ormality is detected. IMPRESSION: ??Persistent abnormal vascul ar blush just distal to the right AICA origin. ??The differential is discussed above and this will need to be further evaluated with catheter angiography at s ome point. Narrative 08/17/2010 10:[address] SCAN OF THE HEAD WELL CT OF THE [place] WITH CONTRAST, 08/16/2010: COMPARISON: ??Previous study 08/15/2010. CONTRAST: ??65 cc Omnipaque-[address] of the [place]. ?? Three-D reformats were performed at a [employer] work station. HISTORY: ??Head injury, question aneurys m. FINDINGS: ?? CT OF THE HEAD WITHOUT CONTRAST: ??The s ubdural hematoma along the falx appears smaller. ??The adjacent subarachnoid blo od in the anterior left frontal lobe is not significantly changed in appearance. ??No new hemorrhages. ??No midline shift. ??Blood and fluid is present with in the paranasal sinuses. ??Please see the CT scan of the face report for addit ional details. ??The previously seen radio densities in the soft tissue overl marleen the left frontal skull have been removed. ??Extra-calvarial soft tissue s welling is again noted. ??The ventricles are stable in size. ?? Procedure Note Randall Ag MD - 08/17/2010Formatti ng of this note might be different from the original. NONCONTRAST CT SCAN OF THE HEAD WELL CT OF THE [place] WITH CONTRAST, 08/16/2010: COMPARISON: Previous study 08/15/2010. CONTRAST: 65 cc Omnipaque-[address] of the [place]. Three-D reformats were performed at a [employer] station. HISTORY: Head injury, question aneurysm. FINDINGS: CT OF THE HEAD WITHOUT CONTRAST: The sub dural hematoma along the falx appears smaller. The adjacent subarachnoid blood in the anterior left frontal lobe is not significantly changed in appearance. No new hemorrhages. No midline shift. Blood and fluid is present within the paranasal sinuses. Please see the CT scan of the face report for addit ional details. The previously seen radio densities in the soft tissue overl marleen the left frontal skull have been removed. Extra-calvarial soft tissue swe lling is again noted. The ventricles are stable in size. IMPRESSION IMPRESSION: Interval evolution of the kn own hemorrhages without new hemorrhages. CTA OF THE [place] WITH CONTRAS T: Again identified is the irregular vascular blush just distal to the origin of the right AICA. This is unchanged in appearance compared to the CTA dated yesterday. The differential remains the same and includes an aneurysm versus vascular malformation versus venous opacification. This should be further ev aluated at some point with a conventional catheter angiogram, which w ill give both better spacial and temporal resolution. Otherwise, no abnor mality is detected. IMPRESSION: Persistent abnormal vascular blush just distal to the right AICA origin. The differential is discussed ab ove and this will need to be further evaluated with catheter angiography at s ome point. Chris WILDER IMG CT ORDERABLES CT HEAD WO CONTRAST (08/16/2010 4:10 PM EDT) Anatomical Region Laterality Modality Head Computed Tomography Specimen (Source) Anatomical Collection Method Collection Time Re ceived Time Location / / Volume Laterality 08/16/2010 4:10 PM EDT Impressions 08/17/2010 10:04 AM EDT IMPRESSION: ??Interval evolution of the known hemorrhages without new hemorrhages. ?? CTA OF THE [place] WITH CONTRAS T: ??Again identified is the irregular vascular blush just distal to the origin of the right AICA. ??This is unchanged in appearance compared to the CTA dated yesterday. ??The differential remains the same and includes an aneurysm versus vascular malformation versus venous opacification. ??This should be further evaluated at some point with a conventional catheter angiogram, which w ill give both better spacial and temporal resolution. ??Otherwise, no abn ormality is detected. IMPRESSION: ??Persistent abnormal vascul ar blush just distal to the right AICA origin. ??The differential is discussed above and this will need to be further evaluated with catheter angiography at s ome point. Narrative 08/17/2010 10:[address] SCAN OF THE HEAD WELL CT OF THE [place] WITH CONTRAST, 08/16/2010: COMPARISON: ??Previous study 08/15/2010. CONTRAST: ??65 cc Omnipaque-[address] the CT of the [place]. ?? Three-D reformats were performed at a [employer] work station. HISTORY: ??Head injury, question aneurys m. FINDINGS: ?? CT OF THE HEAD WITHOUT CONTRAST: ??The s ubdural hematoma along the falx appears smaller. ??The adjacent subarachnoid blo od in the anterior left frontal lobe is not significantly changed in appearance. ??No new hemorrhages. ??No midline shift. ??Blood and fluid is present with in the paranasal sinuses. ??Please see the CT scan of the face report for addit ional details. ??The previously seen radio densities in the soft tissue overl marleen the left frontal skull have been removed. ??Extra-calvarial soft tissue s welling is again noted. ??The ventricles are stable in size. ?? Procedure Note Randall Ag MD - 08/17/2010Formatti ng of this note might be different from the original. NONCONTRAST CT SCAN OF THE HEAD WELL CT OF THE [place] WITH CONTRAST, 08/16/2010: COMPARISON: Previous study 08/15/2010. CONTRAST: 65 cc Omnipaque-[address] of the [place]. Three-D reformats were performed at a [employer] work station. HISTORY: Head injury, question aneurysm. FINDINGS: CT OF THE HEAD WITHOUT CONTRAST: The sub dural hematoma along the falx appears smaller. The adjacent subarachnoid blood in the anterior left frontal lobe is not significantly changed in appearance. No new hemorrhages. No midline shift. Blood and fluid is present within the paranasal sinuses. Please see the CT scan of the face report for addit ional details. The previously seen radio densities in the soft tissue overl marleen the left frontal skull have been removed. Extra-calvarial soft tissue swe lling is again noted. The ventricles are stable in size. IMPRESSION IMPRESSION: Interval evolution of the kn own hemorrhages without new hemorrhages. CTA OF THE [place] WITH CONTRAS T: Again identified is the irregular vascular blush just distal to the origin of the right AICA. This is unchanged in appearance compared to the CTA dated yesterday. The differential remains the same and includes an aneurysm versus vascular malformation versus venous opacification. This should be further ev aluated at some point with a conventional catheter angiogram, which w ill give both better spacial and temporal resolution. Otherwise, no abnor mality is detected. IMPRESSION: Persistent abnormal vascular blush just distal to the right AICA origin. The differential is discussed ab ove and this will need to be further evaluated with catheter angiography at s ome point. Chris WILDER IMG CT ORDERABLES XR CHEST PA OR AP- 1 VIEW (08/16/2010 2:36 PM EDT) Anatomical Region Laterality Modality Chest N/A Radiographic Imaging Specimen (Source) Anatomical Collection Method Collection Time Re ceived Time Location / / Volume Laterality 08/16/2010 2:36 PM EDT Impressions 08/17/2010 7:29 AM EDT IMPRESSION: 1. Left subclavian line with tip at the cavoatrial junction. ?? 2. OG tube with sidehole at the level of the GE junction and tip at the fundus of the stomach. ??This tube could be adv anced another few centimeters. Narrative 08/17/2010 7:29 AM EDT CHEST: ?? INDICATION: ??Left subclavian line place ment. ??OG tube placement. ??Evaluation for line location, pneumothorax. ?? TECHNIQUE: ??Portable AP semierect view of the chest and upper abdomen. ?? COMPARISON: ??August 16, 2010. ?? FINDINGS: ??New left subclavian central venous line, which ends at the cavoatrial junction. ??Endotracheal tube ends as before in projection onto the midthoracic trachea. ??New tube along th e esophagus, with side hole at the level of the GE junction and tip at the fundus of the stomach. ?? No focal airspace consolidation. ??Stabl e findings of the heart and mediastinum, as well as the pulmonary vasculature. ?? Procedure Note Deepali Swift MD - 2010 CHEST: INDICATION: Left subclavian line placeme nt. OG tube placement. Evaluation for line location, pneumothorax. TECHNIQUE: Portable AP semierect view of the chest and upper abdomen. COMPARISON: August 16, 2010. FINDINGS: New left subclavian central ve nous line, which ends at the cavoatrial junction. Endotracheal tube e nds as before in projection onto the midthoracic trachea. New tube along the esophagus, with side hole at the level of the GE junction and tip at the fundus of the stomach. No focal airspace consolidation. Stable findings of the heart and mediastinum, as well as the pulmonary vasculature. IMPRESSION IMPRESSION: 1. Left subclavian line with tip at the cavoatrial junction. 2. OG tube with sidehole at the level of the GE junction and tip at the fundus of the stomach. This tube could be advan martha another few centimeters. Gualberto Calvillo MD IMG DX ORDERABLES XR ABDOMEN 1 VIEW (08/16/2010 11:11 AM EDT) Anatomical Region Laterality Modality Abdomen N/A Radiographic Imaging Specimen (Source) Anatomical Collection Method Collection Time Re ceived Time Location / / Volume Laterality 08/16/2010 11:11 AM EDT Narrative 08/17/2010 2:19 PM EDT DIAGNOSTIC ABDOMEN, SINGLE VIEW: ?? COMPARISON: ??08/16/10 at 9:00 AM. ?? HISTORY: ??Assess NGT palcement ? FINDINGS: ??Subsequent portable supine f ilm at 1105 hours again demonstrates the enteric tube tip to be in the region of the distal GE junction, and this should be advanced into the stomach. ??MEÑO Nielson, was called with this finding. Procedure Note Karrie Downing MD - 08/17/2010Forma tting of this note might be different from the original. DIAGNOSTIC ABDOMEN, SINGLE VIEW: COMPARISON: 08/16/10 at 9:00 AM. HISTORY: Assess NGT palcement FINDINGS: Subsequent portable supine gracie m at 1105 hours again demonstrates the enteric tube tip to be in the region of the distal GE junction, and this should be advanced into the stomach. MEÑO Mohan, was called with this finding. Chris HARRINGTON DX ORDERABLES PREPARE RBC (08/16/2010 11:07 AM EDT) P athologist Signature Dispensed? Yes CERNER [facility] Specimen Anatomical Collection Method Collection Time Receive d Time (Source) Location / / Volume Laterality Blood specimen 08/16/2010 11:07 1 (specimen) AM EDT 11:10 AM EDT Ramsey Bailey MD BLOOD BANK ORDERABLES Performing Organization Address City/State/ZIP Code Phon [place] [address] CERNER MILLENNIUM XR abdomen 1 view (08/16/2010 9:11 AM EDT) Anatomical Region Laterality Modality Abdomen N/A Radiographic Imaging Specimen (Source) Anatomical Collection Method Collection Time Re ceived Time Location / / Volume Laterality 08/16/2010 9:11 AM EDT Impressions 08/16/2010 4:42 PM EDT IMPRESSION: ?? Enteric tube could be advanced into the stomach approximately 5 to 6 cm. Narrative 08/16/2010 4:42 PM EDT DIAGNOSTIC ABDOMEN, SINGLE VIEW: ?? CLINICAL INDICATION: ??Please confirm ga stric enteric tube tip position. TECHNIQUE: ??Portable supine film at 090 5 hours. FINDINGS: ??Supine imaging demonstrates an enteric tube within the distal esophagus at the region of the GE juncti on. ??It could be advanced into the stomach. ??Degenerative changes are pres ent in the lumbar sacral spine with lumbar degenerative changes and scoliosi s present. Procedure Note Karrie Downing MD - 08/16/2010Forma tting of this note might be different from the original. DIAGNOSTIC ABDOMEN, SINGLE VIEW: CLINICAL INDICATION: Please confirm milton roxanne enteric tube tip position. TECHNIQUE: Portable supine film at 0905 hours. FINDINGS: Supine imaging demonstrates an enteric tube within the distal esophagus at the region of the GE juncti on. It could be advanced into the stomach. Degenerative changes are presen t in the lumbar sacral spine with lumbar degenerative changes and scoliosi s present. IMPRESSION IMPRESSION: Enteric tube could be advanced into the stomach approximately 5 to 6 cm. Ramsey Bailey MD IMG DX ORDERABLES REFLEX LAB-NUCLEATED RED BLOOD CELLS (08/16/2010 9:10 AM EDT) P athologist Signature nRBC % Auto 0.0 0.0 - 0.2 CERNER % MILLENNIUM nRBC Abs Auto 0.000 0.000 - CERNER 0.012 MILLENNIUM x10(3)/mcL Specimen Anatomical Collection Method Collection Time Receive d Time (Source) Location / / Volume Laterality Blood specimen 08/16/2010 9:10 AM 011 9:31 (specimen) EDT AM EDT Ramsey Bailey MD HEMATOLOGY ORDERABLES Performing Organization Address City/State/[place] [address] CERNER MILLENNIUM REFLEX LAB-SCAN, PERIPHERAL BLOOD (08/16/2010 9:10 AM EDT) [facility] [employer] Method Time Signature Plat Estimate Decreased CERNER MILLENNIUM RBC Morphology Abnormal CERNER MILLENNIUM [place] Cells 1-5 /HPF CERNER MILLENNIUM Specimen Anatomical Collection Method Collection Time Receive d Time (Source) Location / / Volume Laterality Blood specimen 08/16/2010 9:10 AM 011 9:31 (specimen) EDT AM EDT Ramsey Bailey MD HEMATOLOGY ORDERABLES Performing Organization Address City/[facility]/ZIP Code Phon e Number [address] CERNER MILLENNIUM (ABNORMAL) REFLEX LAB-A-DIFF (08/16/2010 9:10 AM EDT) [facility] [employer] Method Time Signature Neutrophils % 71.0 34.0 - CERNER 71.0 % MILLENNIUM Neutr Abs (ANC) 6.50 (H) 1.50 - CERNER 6.30 MILLENNIUM x10(3)/mc L Lymphocytes % 13.3 (L) 19.0 - CERNER 53.0 % MILLENNIUM Lymphocytes Abs 1.2 1.0 - 3.6 CERNER x10(3)/mc MILLENNIUM L Monocytes % 13.3 (H) 4.0 - CERNER 13.0 % MILLENNIUM Monocyte Abs 1.2 (H) 0.2 - 1.0 CERNER x10(3)/mc MILLENNIUM L Eosinophils % 0.1 0.0 - 7.0 CERNER % MILLENNIUM Eosinophils Abs 0.0 0.0 - 0.5 CERNER x10(3)/mc MILLENNIUM L Basophils % 0.9 0.0 - 2.0 CERNER % MILLENNIUM Basophils Abs 0.1 0.0 - 0.2 CERNER x10(3)/mc MILLENNIUM L Immature Gran % 1.40 (H) 0.00 - CERNER 0.66 % MILLENNIUM Comment: Immature granulocytes(IG's)percentage an d absolute count will include metamyelocytes, myelocytes, and promyelo cytes. Blood smears from CBCs yielding IG's will be scanned manually for concor dance. If this scan disagrees with the automated IG or if promyelocytes are not ed, a manual differential will be performed. Liss Gran Abs 0.13 (H) 0.00 - 0.05 x10(3)/mcL CER NER MILLENNIUM Specimen Anatomical Collection Method Collection Time Receive d Time (Source) Location / / Volume Laterality Blood specimen 08/16/2010 9:10 AM 011 9:31 (specimen) EDT AM EDT Ramsey Bailey MD HEMATOLOGY ORDERABLES Performing Organization Address City/[facility]/[place] [address] CERNER MILLENNIUM POCT GLUCOSE LAB USE ONLY (08/16/2010 9:10 AM EDT) athologist Signature POC Glucose 102 60 - 199 CERNER mg/dL MILLENNIUM Comment: Supplemental ranges: <110 mg/dL before meals <200 mg/dL all other times of the day Specimen Anatomical Collection Method Collection Time Receive d Time (Source) Location / / Volume Laterality Blood specimen 08/16/2010 9:10 AM 011 9:10 (specimen) EDT AM EDT Benson Leahy MD POINT OF CARE TEST ORDERABLE S Performing Organization Address City/State/[place] [address] CERNER MILLENNIUM (ABNORMAL) CBC (with Diff) (08/16/2010 9:10 AM EDT) athologist Signature WBC 9.2 4.0 - 10.0 CERNER x10(3)/mcL MILLENNIUM RBC 2.20 (L) 3.93 - CERNER 5.22 MILLENNIUM x10(6)/mcL Hemoglobin 6.5 (L) 11.2 - CERNER 15.7 gm/dL MILLENNIUM Hematocrit 18.3 (L) 34.0 - CERNER 45.0 % MILLENNIUM MCV 83.2 79.0 - CERNER 94.0 fL MILLENNIUM MCH 29.5 26.6 - CERNER 32.2 pg MILLENNIUM MCHC 35.5 32.0 - CERNER 36.5 gm/dL MILLENNIUM Platelets 125 (L) 145 - 370 CERNER x10(3)/mcL MILLENNIUM RDWSD 46.8 (H) 35.0 - CERNER 46.0 fL MILLENNIUM RDWCV 15.0 (H) 10.9 - CERNER 14.4 % MILLENNIUM MPV 9.6 9.0 - 12.0 CERNER fL MILLENNIUM Specimen Anatomical Collection Method Collection Time Receive d Time (Source) Location / / Volume Laterality Blood specimen 08/16/2010 9:10 AM 011 9:31 (specimen) EDT AM EDT Ramsey Bailey MD HEMATOLOGY ORDERABLES Performing Organization Address City/State/[place] [address] CERNER MILLENNIUM (ABNORMAL) REFLEX LAB-BLOOD GAS 2 ARTERIAL (08/16/2010 4:24 AM EDT) Analysis Performed At Patho logist Time Signature pH Art 7.36 CERNER MILLENNIUM pCO2 Art 31 (L) mmHg CERNER MILLENNIUM pO2 Art 240 (H) mmHg CERNER MILLENNIUM HCO3 Art 17.1 (L) mmol/L CERNER MILLENNIUM BE Art -8.4 (L) mmol/L CERNER MILLENNIUM Hgb Blood Gas 7.2 (L) gm/dL CERNER MILLENNIUM Comment: Total Hemoglobin (in gm/dL) ?Based on [facility] [place] ran ges: ?Age ?Referen ce Range Less than 3 days ?14.5 to 22.5 3 days to 2 weeks ? 12.5 to 20.5 2 weeks to 1 month ?10.0 to 18.0 1 to 6 months ?9.4 to 14 .0 6 months to 2 years ? 10.5 to 13.5 2 to 6 years ?11.5 to 13 .5 6 to 12 years ? 11.5 to 15. 5 12 to 18 years (female) 12.0 to 16.0 ? (male) ?? 13.0 to 16.0 > 18 years ? (female) 11.2 to 15.7 ? (male) ?? 13.7 to 17.5 O2HB Art 97.2 (H) % CERNER MILLENNIUM COHB Art 1.8 % CERNER MILLENNIUM Comment: Nonsmokers: 0.5-1.5% COHB Smokers: Variable, but usually less than 10% Toxic: 20-30% COHB Lethal: Greater than 60% COHB METHB Art 0.5 % CERNER MILLENNIUM Na Whole Blood 138 mmol/L CERNER MILLENNI UM K Whole Blood 3.6 mmol/L CERNER MILLENNIU M Comment: Please note: Patients with WBC >100,000 may have falsely elevated Potassium levels. Contact the Clinical Chemistry L aboratory if there are any questions. ICa Whole Blood 0.99 (L) mmol/L CERNER MILLENN IUM Comment: Reference Ranges: ?? < 19 yrs: 1.22 - 1.37 mmol/L ? Adults: 1.15 - 1.33 mmol/L Note: ??Total bilirubin higher than 20 m g/dL may lead to falsely low ionized calcium. CL Whole Blood 120 (H) mmol/L CERNER MILLENNI UM Gluc Whole Bld 129 mg/dL CERNER MILLENNI UM Comment: Diabetes: >=200 mg/dL plus symp toms. FIO2 Art 50 % CERNER MILLENNIUM PF Ratio Art 480 CERNER MILLENNIUM Specimen Anatomical Collection Method Collection Time Receive d Time (Source) Location / / Volume Laterality Blood specimen 08/16/2010 4:24 AM 011 4:24 (specimen) EDT AM EDT Benson Leahy MD CHEMISTRY ORDERABLES Performing Organization Address City/State/ZIP Code Phon e Number [address] CERNER MILLENNIUM POCT GLUCOSE LAB USE ONLY (08/16/2010 3:58 AM EDT) P athologist Signature POC Glucose 108 60 - 199 CERNER mg/dL MILLENNIUM Comment: Supplemental ranges: <110 mg/dL before meals <200 mg/dL all other times of the day Specimen Anatomical Collection Method Collection Time Receive d Time (Source) Location / / Volume Laterality Blood specimen 08/16/2010 3:58 AM 011 3:58 (specimen) EDT AM EDT Benson Leahy MD POINT OF CARE TEST ORDERABLE S Performing Organization Address City/[facility]/ZIP Code Phon e Number [address] CERNER MILLENNIUM (ABNORMAL) REFLEX LAB-A-DIFF (08/16/2010 3:55 AM EDT) Patholo gist Method Time Signature Neutrophils % 84.0 (H) 34.0 - CERNER 71.0 % MILLENNIUM Neutr Abs (ANC) 6.87 (H) 1.50 - CERNER 6.30 MILLENNIUM x10(3)/mc L Lymphocytes % 7.6 (L) 19.0 - CERNER 53.0 % MILLENNIUM Lymphocytes Abs 0.6 (L) 1.0 - 3.6 CERNER x10(3)/mc MILLENNIUM L Monocytes % 8.1 4.0 - CERNER 13.0 % MILLENNIUM Monocyte Abs 0.7 0.2 - 1.0 CERNER x10(3)/mc MILLENNIUM L Eosinophils % 0.1 0.0 - 7.0 CERNER % MILLENNIUM Eosinophils Abs 0.0 0.0 - 0.5 CERNER x10(3)/mc MILLENNIUM L Basophils % 0.1 0.0 - 2.0 CERNER % MILLENNIUM Basophils Abs 0.0 0.0 - 0.2 CERNER x10(3)/mc MILLENNIUM L Immature Gran % 0.10 0.00 - CERNER 0.66 % MILLENNIUM Comment: Immature granulocytes(IG's)percentage an d absolute count will include metamyelocytes, myelocytes, and promyelo cytes. Blood smears from CBCs yielding IG's will be scanned manually for fiona rico. If this scan disagrees with the automated IG or if promyelocytes are not ed, a manual differential will be performed. Liss Gran Abs 0.01 0.00 - 0.05 x10(3)/mcL CER NER MILLENNIUM Specimen Anatomical Collection Method Collection Time Receive d Time (Source) Location / / Volume Laterality Blood specimen 08/16/2010 3:55 AM 011 4:10 (specimen) EDT AM EDT Ramsey Bailey MD HEMATOLOGY ORDERABLES Performing Organization Address City/State/[place] [address] CERNER MILLENNIUM (ABNORMAL) COMPREHENSIVE METABOLIC PANEL (NON-FASTING) (08/16/2010 3:55 AM EDT) P athologist Signature Glucose Lvl 153 60 - 199 CERNER mg/dL MILLENNIUM Comment: Diabetes: >=200 mg/dL plus symp toms BUN 14 8 - 18 mg/dL CERNER MILLENNIUM Creatinine 0.47 (L) 0.70 - 1.20 mg/dL CERNER MILL ENNIUM Sodium 142 135 - 145 mmol/L CERNER ORLY NIUM Potassium 3.7 3.5 - 5.0 mmol/L CERNER ORLY NIUM Comment: Please note: ??Patients with WBC >100,00 0 may have falsely elevated Potassium levels. ??For accurate Potassium quantif ication in these patients send serum separator tube (gold top) for subsequent determinations. ??Contact the Clinical Chemistry Laboratory if there are any qu estions. Chloride 118 (H) 98 - 107 mmol/L CERNER MILLENN IUM CO2 18 (L) 22 - 31 mmol/L CERNER MILLENNI UM Anion Gap 6 5 - 15 mmol/L CERNER MILLENNIU M Calcium 6.3 (Critical) 8.5 - 10.5 mg/dL CERNER M ILLENNIUM Comment: called by/read back by (full na me)/date-time [address]: 08/16/10 04:55 Total Protein 3.7 (L) 6.4 - 8.3 gm/dL CERNER MIL LENNIUM Albumin 2.2 (L) 3.2 - 5.2 gm/dL CERNER MILLENN IUM AST 27 0 - 30 unit/L CERNER MILLENNIU M ALT 10 0 - 30 unit/L CERNER MILLENNIU M Alk Phos 37 (L) 40 - 104 unit/L CERNER MILLENN IUM Total Bilirubin 0.3 0.2 - 1.3 mg/dL CERNER M ILLENNIUM Bili, Direct 0.1 0.0 - 0.3 mg/dL CERNER MILL ENNIUM Estimated GFR >60 >=60 CERNER MILLENNIU M Comment: The National Kidney Disease Education Pr ogram (NKDEP) has recommended all laboratories report estimated GFR (eGFR) along with plasma creatinine measurements to assist you with recognit ion of early kidney disease. Caveats: ??Plasma creatinine should be a t steady-state (unchanged within the past week). For patient s multiply eGFR by 1.2.MDRD equation has not been validated for pediatric pat ients and is only valid for patients with age >= 18 years. At present, NKDEP does NOT recommend usi ng the MDRD equation for drug dosing purposes and pharmacists should continue to use their current dosing methods. In addition, numerical eGFR values great er than 60 ml/min/1.73 square meters should be treated as > 60, and not an ex act number due to greater inaccuracies at these higher values. Per NKDEP, they classify normal renal function as any GFR >60ml/min/1.73 square meters; chronic kidney disease wh en GFR <60, and renal failure when GFR <15. ??This calculation may not be valid for patients with atypical muscle mass (very lean or obese), acute renal failur e, and in patients with diabetic kidney disease. References: http://nkdep.nih.gov/resources/NKDEP_Sug gestn4Labs_0606_508.pdf http://www.kidney.org/professionals/kls/ pdf/faq_gfr.pdf Specimen Anatomical Collection Method Collection Time Receive d Time (Source) Location / / Volume Laterality Blood specimen 08/16/2010 3:55 AM 011 4:10 (specimen) EDT AM EDT Ramsey Bailey MD CHEMISTRY ORDERABLES Performing Organization Address City/[facility]/[place] [address] CERNER MILLENNIUM Phosphorus (08/16/2010 3:55 AM EDT) athologist Signature Phosphorus 3.2 2.5 - 4.5 CERNER mg/dL MILLENNIUM Specimen Anatomical Collection Method Collection Time Receive d Time (Source) Location / / Volume Laterality Blood specimen 08/16/2010 3:55 AM 011 4:10 (specimen) EDT AM EDT Ramsey Bailey MD CHEMISTRY ORDERABLES Performing Organization Address City/[facility]/[place] [address] CERNER MILLENNIUM (ABNORMAL) Magnesium (08/16/2010 3:55 AM EDT) athologist Signature Magnesium 0.57 (L) 0.69 - 1.07 CERNER mmol/L MILLENNIUM Specimen Anatomical Collection Method Collection Time Receive d Time (Source) Location / / Volume Laterality Blood specimen 08/16/2010 3:55 AM 011 4:10 (specimen) EDT AM EDT Ramsey Bailey MD CHEMISTRY ORDERABLES Performing Organization Address City/[facility]/ZIP [facility] [place] [address] CERNER MILLENNIUM (ABNORMAL) Basic Metabolic Panel (non-fasting) (08/16/2010 3:55 AM EDT) athologist Signature Glucose Lvl 153 60 - 199 CERNER mg/dL MILLENNIUM Comment: Diabetes: >=200 mg/dL plus symp toms BUN 14 8 - 18 mg/dL CERNER MILLENNIUM Creatinine 0.47 (L) 0.70 - 1.20 mg/dL CERNER MILL ENNIUM Sodium 142 135 - 145 mmol/L CERNER ORLY NIUM Potassium 3.7 3.5 - 5.0 mmol/L CERNER ORLY NIUM Comment: Please note: ??Patients with WBC >100,00 0 may have falsely elevated Potassium levels. ??For accurate Potassium quantif ication in these patients send serum separator tube (gold top) for subsequent determinations. ??Contact the Clinical Chemistry Laboratory if there are any qu estions. Chloride 118 (H) 98 - 107 mmol/L CERNER MILLENN IUM CO2 18 (L) 22 - 31 mmol/L CERNER MILLENNI UM Anion Gap 6 5 - 15 mmol/L CERNER MILLENNIU M Calcium 6.3 (Critical) 8.5 - 10.5 mg/dL CERNER M ILLENNIUM Comment: called by/read back by (full na me)/date-time EUGENIO [address]: 08/16/10 04:55 Estimated GFR >60 >=60 CERNER MILLENNIU M Comment: The National Kidney Disease Education Pr ogram (NKDEP) has recommended all laboratories report estimated GFR (eGFR) along with plasma creatinine measurements to assist you with recognit ion of early kidney disease. Caveats: ??Plasma creatinine should be a t steady-state (unchanged within the past week). For patient s multiply eGFR by 1.2.MDRD equation has not been validated for pediatric pat ients and is only valid for patients with age >= 18 years. At present, NKDEP does NOT recommend usi ng the MDRD equation for drug dosing purposes and pharmacists should continue to use their current dosing methods. In addition, numerical eGFR values great er than 60 ml/min/1.73 square meters should be treated as > 60, and not an ex act number due to greater inaccuracies at these higher values. Per NKDEP, they classify normal renal function as any GFR >60ml/min/1.73 square meters; chronic kidney disease wh en GFR <60, and renal failure when GFR <15. ??This calculation may not be valid for patients with atypical muscle mass (very lean or obese), acute renal failur e, and in patients with diabetic kidney disease. References: http://nkdep.nih.gov/resources/NKDEP_Sug gestn4Labs_0606_508.pdf http://www.kidney.org/professionals/kls/ pdf/faq_gfr.pdf Specimen Anatomical Collection Method Collection Time Receive d Time (Source) Location / / Volume Laterality Blood specimen 08/16/2010 3:55 AM 011 4:10 (specimen) EDT AM EDT Ramsey Bailey MD CHEMISTRY ORDERABLES Performing Organization Address City/[facility]/[place] [address] [facility] MILLENNIUM (ABNORMAL) CBC (with Diff) (08/16/2010 3:55 AM EDT) athologist Signature WBC 8.2 4.0 - 10.0 CERNER x10(3)/mcL MILLENNIUM RBC 2.48 (L) 3.93 - CERNER 5.22 MILLENNIUM x10(6)/mcL Hemoglobin 7.5 (L) 11.2 - CERNER 15.7 gm/dL MILLENNIUM Hematocrit 21.3 (L) 34.0 - CERNER 45.0 % MILLENNIUM MCV 85.9 79.0 - CERNER 94.0 fL MILLENNIUM MCH 30.2 26.6 - CERNER 32.2 pg MILLENNIUM MCHC 35.2 32.0 - CERNER 36.5 gm/dL MILLENNIUM Platelets 159 145 - 370 CERNER x10(3)/mcL MILLENNIUM RDWSD 45.4 35.0 - CERNER 46.0 fL MILLENNIUM RDWCV 14.5 (H) 10.9 - CERNER 14.4 % MILLENNIUM MPV 9.3 9.0 - 12.0 CERNER fL MILLENNIUM Specimen Anatomical Collection Method Collection Time Receive d Time (Source) Location / / Volume Laterality Blood specimen 08/16/2010 3:55 AM 011 4:10 (specimen) EDT AM EDT Ramsey Bailey MD HEMATOLOGY ORDERABLES Performing Organization Address City/[facility]/[place] [address] [facility] MILLENNIUM (ABNORMAL) APTT (08/16/2010 3:55 AM EDT) athologist Signature PTT 23 (L) 25 - 37 sec [facility] Comment: Recommended therapeutic PTT range for fu ll dose unfractionated heparin is 80-114 seconds. Specimen Anatomical Collection Method Collection Time Receive d Time (Source) Location / / Volume Laterality Blood specimen 08/16/2010 3:55 AM 011 4:10 (specimen) EDT AM EDT Ramsey Bailey MD HEMATOLOGY ORDERABLES Performing Organization Address City/[facility]/[place] [address] [facility] YUKOENNIUM (ABNORMAL) Protime-INR (08/16/2010 3:55 AM EDT) P athologist Signature PT 15.3 (H) 12.3 - 14.7 CERNER sec [facility] Comment: [facility] Transfusion Committee Guidelines: I NR less than 2.0, PTT less than OR equal to 43.5 seconds, or Fibrinogen gre ater than or equal to 100 mg/dl indicate adequate procoagulant activity for hemostasis in patients without underlying bleeding disorders. INR 1.2 (H) 0.9 - 1.1 [facility] Specimen Anatomical Collection Method Collection Time Receive d Time (Source) Location / / Volume Laterality Blood specimen 08/16/2010 3:55 AM 011 4:10 (specimen) EDT AM EDT Ramsey Bailey MD HEMATOLOGY ORDERABLES Performing Organization Address City/[facility]/ZIP Code Phon e Number [address] [facility] Lactic acid, plasma (08/16/2010 3:55 AM EDT) P athologist Signature Lactate 1.2 0.5 - 2.2 [facility] mmol/L [facility] Specimen Anatomical Collection Method Collection Time Receive d Time (Source) Location / / Volume Laterality Blood specimen 08/16/2010 3:55 AM 011 5:35 (specimen) EDT AM EDT Ramsey Bailey MD CHEMISTRY ORDERABLES Performing Organization Address City/[facility]/ZIP [facility] Phon e Number [address] [facility] XR KNEE DIAGNOSTIC 1 OR 2 VIEW (08/16/2010 2:59 AM EDT) Anatomical Region Laterality Modality Knee N/A Radiographic Imaging Specimen (Source) Anatomical Collection Method Collection Time Re ceived Time Location / / Volume Laterality 08/16/2010 2:59 AM EDT Impressions 08/17/2010 5:02 PM EDT IMPRESSION: Comminuted proximal tibial fracture with intraarticular extension. ??Proximal fibular fracture. ??Lipohemarthrosis. Narrative 08/17/2010 5:02 PM EDT LEFT KNEE: INDICATION: ??Tibial plateau fracture. ? ? TECHNIQUE: ??AP and cross-table lateral views of the left knee are compared to CT images from 08/15/10. ?? FINDINGS: ??Comminuted fracture of the p roximal tibia extending into the joint space. ??Proximal fibular fracture, ques tion slightly impacted. ??Joint fluid, likely representing hemarthrosis. ??The fluid-fluid level seen on the CT demonstrating lipohemarthrosis is not we ll demonstrated due to overlying equipment. ?? Procedure Note Nikki Peraza MD - 08/17/2010Formatt ing of this note might be different from the original. LEFT KNEE: INDICATION: Tibial plateau fracture. TECHNIQUE: AP and cross-table lateral vi ews of the left knee are compared to CT images from 08/15/10. FINDINGS: Comminuted fracture of the pro ximal tibia extending into the joint space. Proximal fibular fracture, questi on slightly impacted. Joint fluid, likely representing hemarthrosis. The fl uid-fluid level seen on the CT demonstrating lipohemarthrosis is not we ll demonstrated due to overlying equipment. IMPRESSION IMPRESSION: Comminuted proximal tibial fracture with intraarticular extension. Proximal fibular fracture. Lipohemarthrosis. Lisbet Jean-Baptiste APRN IMG DX ORDERABLES XR CHEST PA OR AP- 1 VIEW (08/16/2010 2:58 AM EDT) Anatomical Region Laterality Modality Chest N/A Radiographic Imaging Specimen (Source) Anatomical Collection Method Collection Time Re ceived Time Location / / Volume Laterality 08/16/2010 2:58 AM EDT Narrative 08/17/2010 4:48 PM EDT PORTABLE CHEST: INDICATION: ??Status post ETT. TECHNIQUE: ??A single supine radiograph of the chest from 08/16/10 at 02:45 AM. COMPARISON: ??Compared to 08/15/10 at 06 :10 PM. FINDINGS: ??No significant change in end otracheal tube position, approximately 4.0 cm above the daniel. ??Another tube that parallels the endotracheal tube, tip at approximately the level of the ca leonardo. ??Question if this is a nasogastric tube. ??If so, this is in th e mid esophagus, and should be advanced. ?? The lungs appear clear. ??The cardiomedi astinal silhouette, vandana and vasculature are within normal limits. Procedure Note Nikki Peraza MD - 08/17/2010Formatt ing of this note might be different from the original. PORTABLE CHEST: INDICATION: Status post ETT. TECHNIQUE: A single supine radiograph of the chest from 08/16/10 at 02:45 AM. COMPARISON: Compared to 08/15/10 at 06:1 0 PM. FINDINGS: No significant change in endot emmett tube position, approximately 4.0 cm above the daniel. Another tube th at parallels the endotracheal tube, tip at approximately the level of the ca leonardo. Question if this is a nasogastric tube. If so, this is in the mid esophagus, and should be advanced. The lungs appear clear. The cardiomedias tinal silhouette, vandana and vasculature are within normal limits. Lisbet Jean-Baptiste ANV[employer] WORKER IMG DX ORDERABLES XR ANKLE MINIMUM 3 VIEWS (08/16/2010 2:58 AM EDT) Anatomical Region Laterality Modality Ankle N/A Radiographic Imaging Specimen (Source) Anatomical Collection Method Collection Time Re ceived Time Location / / Volume Laterality 08/16/2010 2:58 AM EDT Narrative 08/17/2010 4:46 PM EDT RIGHT ANKLE: ?? INDICATION: ??Status post ORIF right ank le. Question alignment. ?? TECHNIQUE: ??Three views of the right an kle. COMPARISON: ??08/15/10 and compared to i ntraoperative views from 08/15/10. ?? FINDINGS: ??No change in position of fib ular fixation plate, with screw extending across the fibula into the tib ia, as well as by the medial malleolus of the tibia. These are in unchanged pos ition, with no definite intraoperative complications, although evaluation for b romy detail is limited due to overlying cast material. However, the ankle mortis e appears congruent. Bony alignment appears near anatomic. Procedure Note Nikki Peraza MD - 08/17/2010Formatt ing of this note might be different from the original. RIGHT ANKLE: INDICATION: Status post ORIF right ankle . Question alignment. TECHNIQUE: Three views of the right ankl e. COMPARISON: 08/15/10 and compared to int raoperative views from 08/15/10. FINDINGS: No change in position of fibul ar fixation plate, with screw extending across the fibula into the tib ia, as well as by the medial malleolus of the tibia. These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 anterior disk space which m ay suggest ligamentous injury. 4. No acute fracture in the thoracic or lumbar spine. 5. No acute injury to the vessels of the neck or head. Unusual appearance of the right AICA vessel maybe secondary to more focal aneurysm, superimposed loops of a tortuous vessel or a tiny fis santos. Recommend repeat CTA [place] for further clarification. These findings were discussed with Bola riddle at approximately 10:00 AM on 08/16/10. Film and interpretation reviewed by the attending Narrative 08/17/2010 5:52 PM EDT EXAMINATION: CT HEAD AND CERVICAL SPINE, CT FACE, CT THORACIC, CT LUMBAR, CTA CAROTIDS AND [place] OF [place]. DATE OF EXAM: 08/15/10. COMPARISON: None. TECHNIQUE: Noncontrast CT of the head, c ervical, thoracic and lumbar spines. Noncontrast CT of the face. CTA of the c arotids and [place] following the administration of 65 cc Omnipaque-35 0. Multiplanar reformats of the spine and face were performed. 3D reformats of the [place] were performed on a separate workstation. FINDINGS: CT HEAD: There are falcine subdural adam julia present. There is a left frontal subarachnoid hemorrhage versus parenchym al contusion at the superior aspect of the left frontal lobe. No intraventricul ar blood is present. There is no midline shift. No skull fracture seen. F rontal soft tissue defect is present with exposed calvarium. Multiple small r adiodensities are seen in the left frontal/periorbital soft tissues which m ay represent bone fragments versus foreign bodies. Air is present within th e subcutaneous tissues. CT FACE: Comminuted depressed fracture o f the left anterior maxillary sinus with blood within the sinus. Left orbita l floor fracture with a small displaced fragment into the sinus. There is no sylvester dence of herniation of orbital contents or entrapment. Preseptal subcutaneous em physema is present. There is a nondisplaced nasal arch fracture. Nasal septum is deviated to the right. Right maxillary alveolar fracture (series #100 0, image #41). No other facial fractures involving the zygomas or pterg oids are noted. CT CERVICAL SPINE: Alignment of the cerv ical spine is maintained. Vertebral body heights are maintained. There is mi ld widening of the anterior disk space of the C6-C7 level which may be secondar y to a distraction injury. Fracture of the right C7 superior and inferior artic ulating facets with extension into the lateral process. No prevertebral soft ti ssue swelling. CT THORACIC SPINE: Normal alignment of t he thoracic spine. Vertebral body heights are maintained. Multilevel degen erative changes characterized by endplate sclerosis and loss of disk heig ht noted in the midthoracic spine. No acute fracture or dislocation. CT LUMBAR SPINE: Levoconvex scoliosis of the lumbar spine, apex at L3. Vertebral body heights are maintained. N o acute fracture or dislocation. Multilevel degenerative changes are seen within the lower lumbar spine with facet hypertrophic changes, loss of disk height and vacuum disk phenomenon in the lower lumbar spine. CTA CAROTIDS: Three vessel arch is prese nt. Normal course and caliber of the cervical carotids without evidence of ac pauma injury. The left vertebral artery is dominant. Normal course and caliber o f the vertebral arteries without evidence of acute injury. CTA [place] OF [place]: Normal course and caliber of the intracranial vessels without evidence of focal stenosis or cu toff. Unusual appearance the right AICA vessel with possible outpouching (series #8, image #438). This may represent a superimposed loops, a small aneurysm or a tiny fistula Procedure Note Dani Crawford MD - 08/17/2010Format ting of this note might be different from the original. EXAMINATION: CT HEAD AND CERVICAL SPINE, CT FACE, CT THORACIC, CT LUMBAR, CTA CAROTIDS AND [place] OF [place]. DATE OF EXAM: 08/15/10. COMPARISON: None. TECHNIQUE: Noncontrast CT of the head, c ervical, thoracic and lumbar spines. Noncontrast CT of the face. CTA of the c arotids and [place] following the administration of 65 cc Omnipaque-35 0. Multiplanar reformats of the spine and face were performed. 3D reformats of the [place] were performed on a separate workstation. FINDINGS: CT HEAD: There are falcine subdural adam julia present. There is a left frontal subarachnoid hemorrhage versus parenchym al contusion at the superior aspect of the left frontal lobe. No intraventricul ar blood is present. There is no midline shift. No skull fracture seen. F rontal soft tissue defect is present with exposed calvarium. Multiple small r adiodensities are seen in the left frontal/periorbital soft tissues which m ay represent bone fragments versus foreign bodies. Air is present within th e subcutaneous tissues. CT FACE: Comminuted depressed fracture o f the left anterior maxillary sinus with blood within the sinus. Left orbita l floor fracture with a small displaced fragment into the sinus. There is no sylvester dence of herniation of orbital contents or entrapment. Preseptal subcutaneous em physema is present. There is a nondisplaced nasal arch fracture. Nasal septum is deviated to the right. Right maxillary alveolar fracture (series #100 0, image #41). No other facial fractures involving the zygomas or pterg oids are noted. CT CERVICAL SPINE: Alignment of the cerv ical spine is maintained. Vertebral body heights are maintained. There is mi ld widening of the anterior disk space of the C6-C7 level which may be secondar y to a distraction injury. Fracture of the right C7 superior and inferior artic ulating facets with extension into the lateral process. No prevertebral soft ti ssue swelling. CT THORACIC SPINE: Normal alignment of t he thoracic spine. Vertebral body heights are maintained. Multilevel degen erative changes characterized by endplate sclerosis and loss of disk heig ht noted in the midthoracic spine. No acute fracture or dislocation. CT LUMBAR SPINE: Levoconvex scoliosis of the lumbar spine, apex at L3. Vertebral body heights are maintained. N o acute fracture or dislocation. Multilevel degenerative changes are seen within the lower lumbar spine with facet hypertrophic changes, loss of disk height and vacuum disk phenomenon in the lower lumbar spine. CTA CAROTIDS: Three vessel arch is prese nt. Normal course and caliber of the cervical carotids without evidence of ac pauma injury. The left vertebral artery is dominant. Normal course and caliber o f the vertebral arteries without evidence of acute injury. CTA [place] OF [place]: Normal course and caliber of the intracranial vessels without evidence of focal stenosis or cu toff. Unusual appearance the right AICA vessel with possible outpouching (series #8, image #438). This may represent a superimposed loops, a small aneurysm or a tiny fistula IMPRESSION IMPRESSION: 1. There are falcine subdural hematoma a nd left frontal subarachnoid hemorrhage versus contusion. 2. Left orbital floor fracture and anter ior maxillary wall fracture. Soft tissue defect with exposed calvarium. Ri ght maxillary alveolar process fracture. Nondisplaced nasal arch fractu re. 3. Right C7 superior and inferior articu lating facet fractures. Mild widening of the C6-C7 anterior disk space which m ay suggest ligamentous injury. 4. No acute fracture in the thoracic or lumbar spine. 5. No acute injury to the vessels of the neck or head. Unusual appearance of the right AICA vessel maybe secondary to more focal aneurysm, superimposed loops of a tortuous vessel or a tiny fis santos. Recommend repeat CTA [place] for further clarification. These findings were discussed with Bola riddle at approximately 10:00 AM on 08/16/10. Film and interpretation reviewed by the attending Benson Leahy MD IMG CT ORDERABLES CT HEAD & CERVICAL SPINE WO CONTRAST (08/15/2010 7:00 PM EDT) Anatomical Region Laterality Modality Head Computed Tomography Specimen (Source) Anatomical Collection Method Collection Time Re ceived Time Location / / Volume Laterality 08/15/2010 7:00 PM EDT Impressions 08/17/2010 5:52 PM EDT IMPRESSION: 1. There are falcine subdural hematoma a nd left frontal subarachnoid hemorrhage versus contusion. 2. Left orbital floor fracture and anter ior maxillary wall fracture. Soft tissue defect with exposed calvarium. Ri ght maxillary alveolar process fracture. Nondisplaced nasal arch fractu re. 3. Right C7 superior and inferior articu lating facet fractures. Mild widening of the C6-C7 anterior disk space which m ay suggest ligamentous injury. 4. No acute fracture in the thoracic or lumbar spine. 5. No acute injury to the vessels of the neck or head. Unusual appearance of the right AICA vessel maybe secondary to more focal aneurysm, superimposed loops of a tortuous vessel or a tiny fis santos. Recommend repeat CTA [place] for further clarification. These findings were discussed with Bola riddle at approximately 10:00 AM on 08/16/10. Film and interpretation reviewed by the attending Narrative 08/17/2010 5:52 PM EDT EXAMINATION: CT HEAD AND CERVICAL SPINE, CT FACE, CT THORACIC, CT LUMBAR, CTA CAROTIDS AND [place] OF [place]. DATE OF EXAM: 08/15/10. COMPARISON: None. TECHNIQUE: Noncontrast CT of the head, c ervical, thoracic and lumbar spines. Noncontrast CT of the face. CTA of the c arotids and [place] following the administration of 65 cc Omnipaque-35 0. Multiplanar reformats of the spine and face were performed. 3D reformats of the [place] were performed on a separate workstation. FINDINGS: CT HEAD: There are falcine subdural adam julia present. There is a left frontal subarachnoid hemorrhage versus parenchym al contusion at the superior aspect of the left frontal lobe. No intraventricul ar blood is present. There is no midline shift. No skull fracture seen. F rontal soft tissue defect is present with exposed calvarium. Multiple small r adiodensities are seen in the left frontal/periorbital soft tissues which m ay represent bone fragments versus foreign bodies. Air is present within th e subcutaneous tissues. CT FACE: Comminuted depressed fracture o f the left anterior maxillary sinus with blood within the sinus. Left orbita l floor fracture with a small displaced fragment into the sinus. There is no sylvester dence of herniation of orbital contents or entrapment. Preseptal subcutaneous em physema is present. There is a nondisplaced nasal arch fracture. Nasal septum is deviated to the right. Right maxillary alveolar fracture (series #100 0, image #41). No other facial fractures involving the zygomas or pterg oids are noted. CT CERVICAL SPINE: Alignment of the cerv ical spine is maintained. Vertebral body heights are maintained. There is mi ld widening of the anterior disk space of the C6-C7 level which may be secondar y to a distraction injury. Fracture of the right C7 superior and inferior artic ulating facets with extension into the lateral process. No prevertebral soft ti ssue swelling. CT THORACIC SPINE: Normal alignment of t he thoracic spine. Vertebral body heights are maintained. Multilevel degen erative changes characterized by endplate sclerosis and loss of disk heig ht noted in the midthoracic spine. No acute fracture or dislocation. CT LUMBAR SPINE: Levoconvex scoliosis of the lumbar spine, apex at L3. Vertebral body heights are maintained. N o acute fracture or dislocation. Multilevel degenerative changes are seen within the lower lumbar spine with facet hypertrophic changes, loss of disk height and vacuum disk phenomenon in the lower lumbar spine. CTA CAROTIDS: Three vessel arch is prese nt. Normal course and caliber of the cervical carotids without evidence of ac pauma injury. The left vertebral artery is dominant. Normal course and caliber o f the vertebral arteries without evidence of acute injury. CTA [place]: Normal course and caliber of the intracranial vessels without evidence of focal stenosis or cu toff. Unusual appearance the right AICA vessel with possible outpouching (series #8, image #438). This may represent a superimposed loops, a small aneurysm or a tiny fistula Procedure Note Dani Crawford MD - 08/17/2010Format ting of this note might be different from the original. EXAMINATION: CT HEAD AND CERVICAL SPINE, CT FACE, CT THORACIC, CT LUMBAR, CTA CAROTIDS AND [place] OF [place]VL[place]. DATE OF EXAM: 08/15/10. COMPARISON: None. TECHNIQUE: Noncontrast CT of the head, c ervical, thoracic and lumbar spines. Noncontrast CT of the face. CTA of the c arotids and [place] following the administration of 65 cc Omnipaque-35 0. Multiplanar reformats of the spine and face were performed. 3D reformats of the [place] were performed on a separate workstation. FINDINGS: CT HEAD: There are falcine subdural adam ujlia present. There is a left frontal subarachnoid hemorrhage versus parenchym al contusion at the superior aspect of the left frontal lobe. No intraventricul ar blood is present. There is no midline shift. No skull fracture seen. F rontal soft tissue defect is present with exposed calvarium. Multiple small r adiodensities are seen in the left frontal/periorbital soft tissues which m ay represent bone fragments versus foreign bodies. Air is present within th e subcutaneous tissues. CT FACE: Comminuted depressed fracture o f the left anterior maxillary sinus with blood within the sinus. Left orbita l floor fracture with a small displaced fragment into the sinus. There is no sylvester dence of herniation of orbital contents or entrapment. Preseptal subcutaneous em physema is present. There is a nondisplaced nasal arch fracture. Nasal septum is deviated to the right. Right maxillary alveolar fracture (series #100 0, image #41). No other facial fractures involving the zygomas or pterg oids are noted. CT CERVICAL SPINE: Alignment of the cerv ical spine is maintained. Vertebral body heights are maintained. There is mi ld widening of the anterior disk space of the C6-C7 level which may be secondar y to a distraction injury. Fracture of the right C7 superior and inferior artic ulating facets with extension into the lateral process. No prevertebral soft ti ssue swelling. CT THORACIC SPINE: Normal alignment of t he thoracic spine. Vertebral body heights are maintained. Multilevel degen erative changes characterized by endplate sclerosis and loss of disk heig ht noted in the midthoracic spine. No acute fracture or dislocation. CT LUMBAR SPINE: Levoconvex scoliosis of the lumbar spine, apex at L3. Vertebral body heights are maintained. N o acute fracture or dislocation. Multilevel degenerative changes are seen within the lower lumbar spine with facet hypertrophic changes, loss of disk height and vacuum disk phenomenon in the lower lumbar spine. CTA CAROTIDS: Three vessel arch is prese nt. Normal course and caliber of the cervical carotids without evidence of ac pauma injury. The left vertebral artery is dominant. Normal course and caliber o f the vertebral arteries without evidence of acute injury. CTA [place] OF [place]: Normal course and caliber of the intracranial vessels without evidence of focal stenosis or cu toff. Unusual appearance the right AICA vessel with possible outpouching (series #8, image #438). This may represent a superimposed loops, a small aneurysm or a tiny fistula IMPRESSION IMPRESSION: 1. There are falcine subdural hematoma a nd left frontal subarachnoid hemorrhage versus contusion. 2. Left orbital floor fracture and anter ior maxillary wall fracture. Soft tissue defect with exposed calvarium. Ri ght maxillary alveolar process fracture. Nondisplaced nasal arch fractu re. 3. Right C7 superior and inferior articu lating facet fractures. Mild widening of the C6-C7 anterior disk space which m ay suggest ligamentous injury. 4. No acute fracture in the thoracic or lumbar spine. 5. No acute injury to the vessels of the neck or head. Unusual appearance of the right AICA vessel maybe secondary to more focal aneurysm, superimposed loops of a tortuous vessel or a tiny fis santos. Recommend repeat CTA [place] for further clarification. These findings were discussed with Bola riddle at approximately 10:00 AM on 08/16/10. Film and interpretation reviewed by the attending Benson Leahy MD IMG CT ORDERABLES CT CAROTIDS AND [place] OF [place] WITH CONTRAST (08/15/2010 7:00 PM EDT) Anatomical Region Laterality Modality Neck, Head Computed Tomography Specimen (Source) Anatomical Collection Method Collection Time Re ceived Time Location / / Volume Laterality 08/15/2010 7:00 PM EDT Impressions 08/17/2010 5:52 PM EDT IMPRESSION: 1. There are falcine subdural hematoma a nd left frontal subarachnoid hemorrhage versus contusion. 2. Left orbital floor fracture and anter ior maxillary wall fracture. Soft tissue defect with exposed calvarium. Ri ght maxillary alveolar process fracture. Nondisplaced nasal arch fractu re. 3. Right C7 superior and inferior articu lating facet fractures. Mild widening of the C6-C7 anterior disk space which m ay suggest ligamentous injury. 4. No acute fracture in the thoracic or lumbar spine. 5. No acute injury to the vessels of the neck or head. Unusual appearance of the right AICA vessel maybe secondary to more focal aneurysm, superimposed loops of a tortuous vessel or a tiny fis santos. Recommend repeat CTA [place] for further clarification. These findings were discussed with Bola riddle at approximately 10:00 AM on 08/16/10. Film and interpretation reviewed by the attending Narrative 08/17/2010 5:52 PM EDT EXAMINATION: CT HEAD AND CERVICAL SPINE, CT FACE, CT THORACIC, CT LUMBAR, CTA CAROTIDS AND [place] OF [place]. DATE OF EXAM: 08/15/10. COMPARISON: None. TECHNIQUE: Noncontrast CT of the head, c ervical, thoracic and lumbar spines. Noncontrast CT of the face. CTA of the c arotids and [place] following the administration of 65 cc Omnipaque-35 0. Multiplanar reformats of the spine and face were performed. 3D reformats of the [place] were performed on a separate workstation. FINDINGS: CT HEAD: There are falcine subdural adam juila present. There is a left frontal subarachnoid hemorrhage versus parenchym al contusion at the superior aspect of the left frontal lobe. No intraventricul ar blood is present. There is no midline shift. No skull fracture seen. F rontal soft tissue defect is present with exposed calvarium. Multiple small r adiodensities are seen in the left frontal/periorbital soft tissues which m ay represent bone fragments versus foreign bodies. Air is present within th e subcutaneous tissues. CT FACE: Comminuted depressed fracture o f the left anterior maxillary sinus with blood within the sinus. Left orbita l floor fracture with a small displaced fragment into the sinus. There is no sylvester dence of herniation of orbital contents or entrapment. Preseptal subcutaneous em physema is present. There is a nondisplaced nasal arch fracture. Nasal septum is deviated to the right. Right maxillary alveolar fracture (series #100 0, image #41). No other facial fractures involving the zygomas or pterg oids are noted. CT CERVICAL SPINE: Alignment of the cerv ical spine is maintained. Vertebral body heights are maintained. There is mi ld widening of the anterior disk space of the C6-C7 level which may be secondar y to a distraction injury. Fracture of the right C7 superior and inferior artic ulating facets with extension into the lateral process. No prevertebral soft ti ssue swelling. CT THORACIC SPINE: Normal alignment of t he thoracic spine. Vertebral body heights are maintained. Multilevel degen erative changes characterized by endplate sclerosis and loss of disk heig ht noted in the midthoracic spine. No acute fracture or dislocation. CT LUMBAR SPINE: Levoconvex scoliosis of the lumbar spine, apex at L3. Vertebral body heights are maintained. N o acute fracture or dislocation. Multilevel degenerative changes are seen within the lower lumbar spine with facet hypertrophic changes, loss of disk height and vacuum disk phenomenon in the lower lumbar spine. CTA CAROTIDS: Three vessel arch is prese nt. Normal course and caliber of the cervical carotids without evidence of ac pauma injury. The left vertebral artery is dominant. Normal course and caliber o f the vertebral arteries without evidence of acute injury. CTA [place] OF [place]: Normal course and caliber of the intracranial vessels without evidence of focal stenosis or cu toff. Unusual appearance the right AICA vessel with possible outpouching (series #8, image #438). This may represent a superimposed loops, a small aneurysm or a tiny fistula Procedure Note Dain Crawford MD - 08/17/2010Format ting of this note might be different from the original. EXAMINATION: CT HEAD AND CERVICAL SPINE, CT FACE, CT THORACIC, CT LUMBAR, CTA CAROTIDS AND [place] OF [place]. DATE OF EXAM: 08/15/10. COMPARISON: None. TECHNIQUE: Noncontrast CT of the head, c ervical, thoracic and lumbar spines. Noncontrast CT of the face. CTA of the c arotids and [place] following the administration of 65 cc Omnipaque-35 0. Multiplanar reformats of the spine and face were performed. 3D reformats of the [place] were performed on a separate workstation. FINDINGS: CT HEAD: There are falcine subdural adam julia present. There is a left frontal subarachnoid hemorrhage versus parenchym al contusion at the superior aspect of the left frontal lobe. No intraventricul ar blood is present. There is no midline shift. No skull fracture seen. F rontal soft tissue defect is present with exposed calvarium. Multiple small r adiodensities are seen in the left frontal/periorbital soft tissues which m ay represent bone fragments versus foreign bodies. Air is present within th e subcutaneous tissues. CT FACE: Comminuted depressed fracture o f the left anterior maxillary sinus with blood within the sinus. Left orbita l floor fracture with a small displaced fragment into the sinus. There is no sylvester dence of herniation of orbital contents or entrapment. Preseptal subcutaneous em physema is present. There is a nondisplaced nasal arch fracture. Nasal septum is deviated to the right. Right maxillary alveolar fracture (series #100 0, image #41). No other facial fractures involving the zygomas or pterg oids are noted. CT CERVICAL SPINE: Alignment of the cerv ical spine is maintained. Vertebral body heights are maintained. There is mi ld widening of the anterior disk space of the C6-C7 level which may be secondar y to a distraction injury. Fracture of the right C7 superior and inferior artic ulating facets with extension into the lateral process. No prevertebral soft ti ssue swelling. CT THORACIC SPINE: Normal alignment of t he thoracic spine. Vertebral body heights are maintained. Multilevel degen erative changes characterized by endplate sclerosis and loss of disk heig ht noted in the midthoracic spine. No acute fracture or dislocation. CT LUMBAR SPINE: Levoconvex scoliosis of the lumbar spine, apex at L3. Vertebral body heights are maintained. N o acute fracture or dislocation. Multilevel degenerative changes are seen within the lower lumbar spine with facet hypertrophic changes, loss of disk height and vacuum disk phenomenon in the lower lumbar spine. CTA CAROTIDS: Three vessel arch is prese nt. Normal course and caliber of the cervical carotids without evidence of ac pauma injury. The left vertebral artery is dominant. Normal course and caliber o f the vertebral arteries without evidence of acute injury. CTA [place] OF [place]: Normal course and caliber of the intracranial vessels without evidence of focal stenosis or cu toff. Unusual appearance the right AICA vessel with possible outpouching (series #8, image #438). This may represent a superimposed loops, a small aneurysm or a tiny fistula IMPRESSION IMPRESSION: 1. There are falcine subdural hematoma a nd left frontal subarachnoid hemorrhage versus contusion. 2. Left orbital floor fracture and anter ior maxillary wall fracture. Soft tissue defect with exposed calvarium. Ri ght maxillary alveolar process fracture. Nondisplaced nasal arch fractu re. 3. Right C7 superior and inferior articu lating facet fractures. Mild widening of the C6-C7 anterior disk space which m ay suggest ligamentous injury. 4. No acute fracture in the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
--- OUTSIDE RECORDS SUMMARY | 2022-01-11 03:30 | XMS_ITS | Encounter Summary ---
:1945 Author Organization [facility] [place] [address] Care Team Providers Name Role Phone Amber Kraus MD Primary Care Provider Encounter Details Date Type Department Care Team Description 04/19/2010 Office Visit [facility] at [facility] Maxwell Gutierrez MD [facility] [place] [address] ORTHOPAEDIC SURGERY [phone] [place] [id number] (Wo rk) Social History Tobacco Use Types Packs/Day Years Used Date Smoking Tobacco: Never Assessed Sex Assigned at Date Recorded Not on file documented as of this encounter Plan of Treatment Not on filedocumented as of this encounter Visit Diagnoses Not on filedocumented in this encounter Care Teams Occupational Health And Safety Officer Relationship Specialty Start Date End Date Amber Kraus MD PCP - General 04/19/10 [address] [place] [address] documented as of this encounter
--- OUTSIDE RECORDS SUMMARY | 2022-01-11 03:33 | XMS_ITS | Encounter Summary ---
:1945 Author Organization [facility] Address [address] [place] [id number] Care Team Providers Name Role Phone Amber Kraus MD Primary Care Provider Reason for Visit Reason Comments Eye Problem Dislocated one piece PCIOL w / torn capsule, at risk for dislocation into the vitreous, left eye. Pain no Since fall vision loss. Floaters old ones Flashes no Encounter Details Date Type Department Care Team Description 07/13/2012 Office Visit [facility] Cabrera Lugo MD Ophthalmology - [address] [place], [place] [id number] [place] [address] [phone] (Wo rk) Social History Tobacco Use Types Packs/Day Years Used Date Smoking Tobacco: Some Days Sex Assigned at Date Recorded Not on file documented as of this encounter Progress Notes Santos Lugo MD - 07/17/2012 1510 EDT DIVISION OF OPHTHALMOLOGY [facility] July 13, 2012 Westley Mercer MD FA - Ophthalmology [address] [place] [id number] Dear Salinas: I would like to consult you on Den Han. She is a nice lady who had surgery originally by Elías Kingston in about 2006. She had good vision in her eye, but had a head injury and bumped the area of her eye at which time the lens subluxed and she has never had good vision since that time. That occurred a year to a [id number]-half ago. She is interested in having this situation improved if we think it is possible. Current vision in the eye is reasonably good, moderately diminished and in the right eye is excellent. No pain, no new flashes or floaters. The vision is variable. She has what she calls sun flares in the inferior visual field of the eye. I have evaluated the following things in both eyes, confrontations visual willis to count fingers, extraocular movements and eyes in primary position and these are all normal except cannot really countfingers well in the nasal portion of the visual field, left. (Normal confrontation visual willis means visual willis are full to count fingers in all six willis. Extraocular movements normal means movements were full and concomitant. Eyes normal in primary position means eyes are straight in primary position.) I have examined the following ophthalmic exam components for this patient, inspection of bulbar and palpebral conjunctivae, ocular adnexa, which includes the lids, lacrimal glands, lacrimal drainage, orbits and preauricular lymph nodes, examination of pupils including shape, reaction and size, morphology not done due to mydriasis, irises were examined, presence or absence of rubeosis, corneal exam including epithelium, stroma, endothelium and tear film, anterior chambers including depth, cells and flare, lens exam including clarity, anterior and posterior capsule, cortex and nucleus. The above are all normal both eyes except well-placed PC implant, right and hinged subluxed lens, left. Extended ophthalmoscopy with indirect and Hruby lens reveals some central drusen in both eyes. Cup-to-disc ratios are slightly asymmetric, right 0.5 saucerized and left 0.6 saucerized. The peripheral retina is flat. The patient has extensive drusen temporally in both eyes. There is no subretinal fluid, hard exudate or hemorrhage noted in the macular region of either eye. Indications: Drusen. Assessment and Plan: 1. Subluxed intraocular lens, posterior capsular fixation, left eye. I think it would be reasonable to consider explanting the current lens and putting in an anterior chamber lens if you think this would be a good approach. The other option would probably be an iris fixation lens or sewn-in lens. I would like your thoughts on these options. 2. Dry macular degeneration, relatively mild macular component. I do not think the patient necessarily needs to be on vitamins. I will ask her to use an Amsler grid daily. 3. Pseudophakia/aphakia, right, that looks excellent. Comment, Salinas, thanks for assessing this nice lady. Let us talk after you have a chance to look at her and see how we can figure out rehabilitation of this left eye. Best regards, Electronically Signed by Santos Lugo MD 07/27/2012 11:56 Santos Lugo MD [facility] [address] [place] [address] - Santos Lugo MD - DV Job ID: Doc ID: [id number] Ext Doc ID: [id number] cc: MD Westley Lux MD Santos Lugo MD - 07/13/2012 1329 EDT Chief Complaint Patient presents with ??? Eye Problem Dislocated one piece PCIOL w/ torn capsule, at risk for dislocation into the vitreous, left eye. Pain no Since fall vision loss. Floaters old ones Flashes no HPI Location: Left eye Pain: 0 - No pain Quality: Severity: Moderate Duration: Years Timing: Constant Lasts: Continuous Context: Dislocated one piece PCIOL w/ torn capsule, at risk for dislocation into the vitreous, lefteye. Pain no Since fall vision loss. Floaters old ones Flashes no Modifying factors: Fall happened 1 yr ago, Associated Signs & Symptoms: old floater and no flashes Visual Fluctuations: None Attestation: Blood pressure: A1c: Base Ophthalmology Exam Visual Acuity Right Left Dist sc 20/20 -2 20/40 Method: Snellen - Linear Comments: Left eye tested with +10PH Tonometry Right Left Pressure 16 19 Method: Applanation Time: 13:13 Wearing Rx Sphere Right +2.75 Left +2.75 Type: OTC Dilation Both eyes: 1.0% Mydriacyl, 2.5% Phenylephrine @ 13:14 Pupils Dark Light React APD Right 4 2 Brisk None Left 6 Minimal None Visual Willis Right Left Result Full Restrictions Partial superior nasal, inferior nasal deficiencies Extraocular Movement Right Left Result Full, Ortho Full, Ortho Main Ophthalmology Exam External Exam Right Left External Normal Normal Slit Lamp Exam Right Left Lids/Lashes 1+ Blepharitis 1+ Blepharitis Conjunctiva/Sclera White and quiet White and quiet Cornea Clear Clear Anterior Chamber Deep and quiet vit in AC Iris Round and reactive Round and reactive Lens PCIOL capsule torn temp'ly, tilted IOL Vitreous Normal Normal Fundus Exam Right Left Disc saucerized saucerized C/D Ratio 0.5 0.65 Macula Drusen Normal Vessels Normal Normal Periphery temp'l drusen temp'l drusen Neuro/Psych Oriented x3: Yes Mood/Affect: Normal Impression: 1. Aphakia 2. S/P lens implant 3. Subluxation of lens 4. Nonexudative age-related macular degeneration 5. Glaucoma suspect Assessment and Plan: S/p PCIOL both eyes. Subluxed IOL left eye Lens in good position right eye D/w pt option of surgical intervention for subluxed IOL left eye Risks/benefits discussed. Pt would like to proceed with intervention Will d/w Dr. Mercer re: thoughts on procedure Mild dry AMD both No need for intervention at this point Observe. Glaucoma suspect. Defer to Lesli LYNNE for management. Will set up consult [facility] 1-3 wks I, Dr. Lugo, have performed my own HPI and reviewed the [facility] ROS. I have also reviewed the patient's past medical, family, social and surgical history, as well as the patient's medications, allergies, and problem list. I am scribing for Dr. Santos Lugo MD, while he is personally performing the service. NEVIN Mccord (Scribe) documented in this encounter Plan of Treatment Not on filedocumented as of this encounter Visit Diagnoses Diagnosis Aphakia - Primary S/P lens implant Lens replaced by other means Subluxation of lens Nonexudative age-related macular degener ation Nonexudative senile macular degeneration of retina Glaucoma suspect Preglaucoma, unspecified documented in this encounter Eye Exam Visual Acuity (Snellen - Linear) Right eye Left eye Dist sc 20/20 -2 20/40 Left eye tested with +10PH Tonometry (Applanation, 13:13) Right eye Left eye Pressure 16 19 Pupils Dark Light React APD Right eye 4 2 Brisk None Left eye 6 Minimal None Visual Willis Right eye Left eye Full Restrictions Partial outer superi or nasal, inferior nasal deficiencies Extraocular Movement Right eye Left eye Full, Ortho Full, Ortho Neuro/Psych Oriented x3: Yes Mood/Affect: Normal Dilation Both eyes: 1.0% Mydriacyl, 2.5% Phenylep hrine @ 13:14 External Exam Right eye Left eye External Normal Normal Slit Lamp Exam Right eye Left eye Lids/Lashes 1+ Blepharitis 1+ Blepharitis Conjunctiva/Sclera White and quiet White and quiet Cornea Clear Clear Anterior Chamber Deep and quiet vit in AC Iris Round and reactive Round and reactive Lens PCIOL capsule torn temp'ly , tilted IOL Vitreous Normal Normal Fundus Exam Right eye Left eye Disc saucerized saucerized C/D Ratio 0.5 0.65 Macula Drusen Normal Vessels Normal Normal Periphery temp'l drusen temp'l drusen Wearing Rx Sphere Right eye +2.75 Left eye +2.75 Type: OTC Care Teams Sleeping Car Service Attendant Relationship Specialty Start Date End Date Amber Kraus MD PCP - General 06/06/12 [address] [place] [id number] documented as of this encounter
--- OUTSIDE RECORDS SUMMARY | 2022-01-11 03:33 | XMS_ITS | Encounter Summary ---
:1945 Author Organization [facility] Address [address] [place] [address] Care Team Providers Name Role Phone Marcial Tinsley MD Primary Care Provider Reason for Visit Reason Onset Date Comments Advice Only 05/05/2012 Encounter Details Date Type Department Care Team Description 05/05/2012 Telephone [facility] - Karen Bhagat MD Advice Only [address] Intervention[facility] Pain [address] [facility] [place] [phone] (Wo rk) Social History Tobacco Use Types Packs/Day Years Used Date Smoking Tobacco: Some Days Sex Assigned at Date Recorded Not on file documented as of this encounter Miscellaneous Notes Telephone Encounter - Amber Prabhakar RN - 05/06/2012 0912 EDT Returned call to patient, she was under the impression that she was seeing for her pain consult, not . She would like the pain consult and referral not to be sent to her primary care physician as she feels that this plan of care would be taking her back ten years and not be helpful for her care. Telephone Encounter - Gina Hernandez - 05/05/2012 1639 EDT Patient states there has been some confusion about her treatment. She says she was seen for a consult yesterday. She thinks Dr. Bhagat has her confused with another patient. The patient would like to discuss the treatment plan which will be recommended to her referring doctor. She would like to discuss this prior to the recommendations being sent out. Telephone Encounter - Jeyson Montenegro - 05/05/2012 0948 EDT PT WOULD LIKE TO TALK ABOUT HER VISIT YESTERDAY documented in this encounter Plan of Treatment Not on filedocumented as of this encounter Visit Diagnoses Not on filedocumented in this encounter Care Teams Russet Repairer Relationship Specialty Start Date End Date Marcial Tinsley MD PCP - General 10/03/08 06/05/[address] [place] [phone] documented as of this encounter
--- OUTSIDE RECORDS SUMMARY | 2022-01-11 03:33 | XMS_ITS | Encounter Summary ---
:1945 Author Organization [facility] Address [address] [place] [address] Care Team Providers Name Role Phone Unavailable Primary Care Provider Unavailable Encounter Details Date Type Department Care Team Description 08/03/1999 Hospital Encounter [facility] - Jose Parrish MD Other Unknown, Provider, [address] [place], [place] [id number] Social History Tobacco Use Types Packs/Day Years Used Date Smoking Tobacco: Never Assessed Sex Assigned at Date Recorded Not on file documented as of this encounter Discharge Disposition Disposition Code Departure Means Destination Auto Discharge documented in this encounter Plan of Treatment Not on filedocumented as of this encounter Visit Diagnoses Not on filedocumented in this encounter
--- OUTSIDE RECORDS SUMMARY | 2022-01-11 03:33 | XMS_ITS | Encounter Summary ---
:1945 Author Organization [facility] Address [address] [place] [address] Care Team Providers Name Role Phone Marcial Tinsley MD Primary Care Provider Encounter Details Date Type Department Care Team Description 11/12/2003 Before [facility] - Faye Curtis Converted Visit Maple conversion [address] [facility] ([facility]) [address] [place] [address] [place] [address] [phone] Social History Tobacco Use Types Packs/Day Years Used Date Smoking Tobacco: Never Assessed Sex Assigned at Date Recorded Not on file documented as of this encounter Plan of Treatment Not on filedocumented as of this encounter Visit Diagnoses Not on filedocumented in this encounter Care Teams Mobile Equipment Servicer Relationship Specialty Start Date End Date Marcial Tinsley MD PCP - General 10/03/08 06/05/[address] [place] [phone] documented as of this encounter
--- OUTSIDE RECORDS SUMMARY | 2022-01-11 03:33 | XMS_ITS | Encounter Summary ---
:1945 Author Organization [facility] Address [address] [place] [address] Care Team Providers Name Role Phone Amber Kraus MD Primary Care Provider Reason for Visit Reason Onset Date Comments Appointment Related 09/21/2012 Encounter Details Date Type Department Care Team Description 09/21/2012 Telephone [facility] Christian Ballesteros, Vinh ointment Related Ophthalmology - [place] in [address] [phone] Social History Tobacco Use Types Packs/Day Years Used Date Smoking Tobacco: Some Days Sex Assigned at Date Recorded Not on file documented as of this encounter Miscellaneous Notes Telephone Encounter - Radha Sampson - 09/21/2012 1049 EDT Patient requested to be seen at [facility] for her dislocated IOL. [facility] asked for all of her office notes, which I faxed, and they will contact patient. Patient notified. documented in this encounter Plan of Treatment Not on filedocumented as of this encounter Visit Diagnoses Not on filedocumented in this encounter Care Teams Gun Stock Maker Relationship Specialty Start Date End Date Amber Kraus MD PCP - General 06/06/12 [address] [place] [phone] documented as of this encounter
--- OUTSIDE RECORDS SUMMARY | 2022-01-11 03:33 | XMS_ITS | Encounter Summary ---
:[address] [facility] Address [address] [place] [address] Care Team Providers Name Role Phone Jeff Kraus MD Primary Care Provider Reason for Visit Reason Comments Eye Problem NPV: Subluxed Lens Eval. VA fine per pt. c/o blurry VA left eye since about year ago when pt had f all and hit her head. Since then pt have subluxed lens. since injury c/o poor VA inferiorly/temp side left eye like looking trough isauro.No pain.No flashes. No floaters. Encounter Details Date Type Department Care Team Description 07/22/2012 Office Visit [facility] Westley Mercer Ophthalmology - Hernandez Javier MD [address] [address] [address], [place] [phone] (Wo rk) Social History Tobacco Use Types Packs/Day Years Used Date Smoking Tobacco: Some Days Sex Assigned at Date Recorded Not on file documented as of this encounter Progress Notes Westley Merecr MD - 07/22/2012 0825 EDT Department of Ophthalmology / Cataract/Cornea Office Visit Note Referring physician: Santos Lugo Local [employer] Account[employer] Teacher: Family Physician (PCP): JEFF KRAUS Other Physician: History of Present Illness: This HPI section must be documented by the physician (or scribe upon the dictation of the physician). It should not be documented independently by the information technology technician/scribe in the absence of the physician. Patient presents with ??? Eye Problem NPV: Subluxed Lens Eval. c/o very poor vision left eye (like looking through claudiao) since 1.5 years ago when pt had fall and hit her head - she was subsequently found to have a subluxed/dislocated intraocular lens. She recalls that cataract surgery for her left eye was long and difficult (done in [place], [place]). She believes her vision was good in her left eye until the time of her injury. No pain.No flashes. No floaters. Pain: 0 / 10 Both Eyes Flashes: No Floaters: No Controls: Diabetes :No Hypertension:No Tobacco:No EXAMINATION: Base Ophthalmology Exam Visual Acuity Right Left Dist cc 20/20 -2 20/400 Eccentric fix Three line per pt Dist ph cc 20/100-2 Method: Snellen - Linear Tonometry Right Left Pressure 15 18 Method: Applanation Time: 8:16 Dilation Both eyes: 1.0% Mydriacyl, 2.5% Phenylephrine @ 8:53 Pupils Pupils Dark React APD Right PERRL 4 None Left PERRL 6 slower None Comments: Right pupil 6-4, left pupil 8-7 brisk, hippus, no APD , SP Visual Willis Right Left Result Full Full Comments: Right eye full by CF and left eye full by HM, SP Main Ophthalmology Exam Slit Lamp Exam Right Left Lids/Lashes 2+ Dermatochalasis - upper lid, 1+ Meibomian gland dysfunction 2+ Dermatochalasis - upper lid Conjunctiva/Sclera White and quiet White and quiet Cornea Clear Clear Anterior Chamber Deep and quiet Trace Cell, small amount of vitreous in AC superiorly Iris Round and reactive Round and reactive Lens Posterior chamber intraocular lens clear IOL not seen through undilated pupil; intermittently aone-piece IOL shifts into view with nasal decentration with optic edge 4 mm from temporal limbus with extreme pseudo phacodonesis Vitreous Posterior vitreous detachment Posterior vitreous detachment Fundus Exam Right Left Disc Peripapillary atrophy Peripapillary atrophy C/D Ratio 0.6 0.7 Macula many small drusen small drusen Vessels Normal Normal Periphery Normal peripheral drusen temp Gonioscopy Right Left Temporal CB Nasal CB Superior CB Inferior CB Neuro/Psych Oriented x3: Yes Mood/Affect: Normal OPHTHALMOLOGY TESTING: [To insert test results, first enter the results in Doc Flowsheet and then use dot phrase .OPHTESTEXAM to choose the results module(s) to pull into this note] IMPRESSION / PLAN: Encounter Diagnoses Name Primary? Dislocated IOL (intraocular lens), posterior Yes ??? Glaucoma suspect ??? Nonexudative age-related macular degeneration ??? PVD (posterior vitreous detachment) ??? Dermatochalasis ??? Pseudophakia -the IOL/capsular bag complex has dislocated into the vitreous cavity, and only intermittently floats into position behind the pupil. I told the patient that I felt there was no good approach to fixate her existing, one piece IOL, and that it could be removed at the time of a pars plana vitrectomy procedure, and replaced with either an ACIOL or sutured PCIOL. I told her that risks of such procedureincluded retinal tears or detachment, macular edema, persistent corneal edema or secondary glaucoma. -I told her that another option which may be helpful for her would be to fit her left eye with an extended wear, aphakic contact lens, and that such a lens would likely improve her vision to an acceptable level (aphakic refraction last visit with Dr. Lugo resulted in 20/40 visual acuity left eye) much of the time, except at times when the existing IOL shifts into the visual axis. Presumably, there will be less of a tendency for her existing IOL to shift into the visual axis over time, when the IOLwill fully dislocate into the vitreous cavity. I told her that there was likely some risk of retinaltears/detachments or other problems with a fully dislocated IOL, but that I have not personally seen patients develop such problems with dislocated IOLs, and follow a number of patients with this condition in this practice. Plan: She wishes to try an aphakic contact lens fitting for her left eye with Shant Mac, who willinform me of the results of the fitting. If she is unable to replace the contact lens herself, she may be able to go to the [facility] or [facility] Out[facility] clinic to have the lens replaced periodically. We will send this note to Drs. Lugo and Lesli, and I appreciate the opportunity to take part in her care. Scribe Attestation: I am scribing for Westley Mercer MD while he is personally performing the service. Cliff Pittman (Scribe) Time spent: documented in this encounter Plan of Treatment Not on filedocumented as of this encounter Visit Diagnoses Diagnosis Dislocated IOL (intraocular lens), poste rior - Primary Posterior dislocation of lens Glaucoma suspect Preglaucoma, unspecified Nonexudative age-related macular degener ation Nonexudative senile macular degeneration of retina PVD (posterior vitreous detachment) Vitreous degeneration Dermatochalasis Pseudophakia Lens replaced by other means documented in this encounter Historical Medications This list may reflect changes made after this encounter. Medication Sig Dispensed Refills Start Date End Date carbidopa-levodopa Take 1 Tab by mouth 2 0 (SINEMET) 10-100 mg per times daily. tablet added in this encounter Eye Exam Visual Acuity (Snellen - Linear) Right eye Left eye Dist cc 20/20 -2 20/400 Eccentric fix Three line per pt Dist ph cc 20/100-2 Tonometry (Applanation, 8:16) Right eye Left eye Pressure 15 18 Gonioscopy Right eye Left eye Temporal CB Nasal CB Superior CB Inferior CB Pupils Pupils Dark React APD Right eye PERRL 4 None Left eye PERRL 6 slower None Right pupil 6-4, left pupil 8-7 brisk, hippus, no APD , SP Visual Willis Right eye Left eye Full Full Right eye full by CF and left eye full by HM, SP Neuro/Psych Oriented x3: Yes Mood/Affect: Normal Dilation Both eyes: 1.0% Mydriacyl, 2.5% Phenylep hrine @ 8:53 Slit Lamp Exam Right eye Left eye Lids/Lashes 2+ Dermatochalasis - upper lid, 2+ Lydia tochalasis - upper lid 1+ Meibomian gland dysfunction Conjunctiva/Sclera White and quiet White and quiet Cornea Clear Clear Anterior Chamber Deep and quiet Trace Cell, small am ount of vitreous in AC super iorly Iris Round and reactive Round and reactive Lens Posterior chamber intraocular IOL not se en through undilated lens clear pupil; intermittentl y a one-piece IOL shifts into view with nasal decentration with op tic edge 4 mm from temporal limbus with extreme pseudo phacodonesis Vitreous Posterior vitreous detachment Posterior vitreous detachment Fundus Exam Right eye Left eye Disc Peripapillary atrophy Peripapillary atro phy C/D Ratio 0.6 0.7 Macula many small drusen small drusen Vessels Normal Normal Periphery Normal peripheral drusen te mp Care Teams Shingle Trimmer Relationship Specialty Start Date End Date Jeff Kraus MD PCP - General 06/06/12 [address] [place] [phone] documented as of this encounter
--- OUTSIDE RECORDS SUMMARY | 2022-01-11 03:33 | XMS_ITS | Encounter Summary ---
:1945 Author Organization [facility] Address [address] [place] [address] Care Team Providers Name Role Phone Marcial Tinsley MD Primary Care Provider Encounter Details Date Type Department Care Team Description 11/12/2003 Before [facility] - Yaya Golden Converted Visit Chantel Robertson MD ([facility]) [address] [facility] [address] [place] [address] [place], [place] [phone] (Wo rk) Social History Tobacco Use Types Packs/Day Years Used Date Smoking Tobacco: Never Assessed Sex Assigned at Date Recorded Not on file documented as of this encounter Plan of Treatment Not on filedocumented as of this encounter Visit Diagnoses Not on filedocumented in this encounter Care Teams Publication Editor Relationship Specialty Start Date End Date Marcial Tinsley MD PCP - General 10/03/08 06/05/[address] [place] [phone] documented as of this encounter
--- OUTSIDE RECORDS SUMMARY | 2022-01-11 03:33 | XMS_ITS | Encounter Summary ---
:1945 Author Organization [facility] Address [address] [place] [address] Care Team Providers Name Role Phone Marcial Tinsley MD Primary Care Provider Encounter Details Date Type Department Care Team Description 08/25/2009 Abstract Used for ABSTRACTING Data Marcial Tinsley MD [phone] [address] [place] [phone] (Wo rk) Social History Tobacco Use Types Packs/Day Years Used Date Smoking Tobacco: Never Assessed Sex Assigned at Date Recorded Not on file documented as of this encounter Plan of Treatment Not on filedocumented as of this encounter Visit Diagnoses Not on filedocumented in this encounter Care Teams Supervisor Welding Equipment Repairer Relationship Specialty Start Date End Date Marcial Tinsley MD PCP - General 10/03/08 06/05/12 [address] [place] [phone] documented as of this encounter
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
--- OUTSIDE RECORDS SUMMARY | 2022-01-11 03:33 | XMS_ITS | Encounter Summary ---
:1945 Author Organization [facility] Address [address] [place] [address] Care Team Providers Name Role Phone Amber Kraus MD Primary Care Provider Reason for Visit Reason Comments Eye Problem Pt feels VA in left eye is w orse since falling & hitting her head over 1 year ago. Feels like she is looking through jello except when she looks to the extreme upper left woods nd side. Encounter Details Date Type Department Care Team Description 07/02/2012 Office Visit [facility] James Ballesteros MD Ophthalmology - [place] [address] [place] [address] [address] [id number] [place], [place] [address] Social History Tobacco Use Types Packs/Day Years Used Date Smoking Tobacco: Some Days Sex Assigned at Date Recorded Not on file documented as of this encounter Progress Notes Christian Ballesteros MD - 07/02/2012 5497 EDT Chief Complaint Patient presents with ??? Eye Problem Pt feels VA in left eye is worse since falling & hitting her head over 1 year ago. Feels like she is looking through jello except when she looks to the extreme upper left hand side. HPI The patient is a 66 y.o. female Right Eye: NL Left Eye: Blurred Vision Visual Aid: None Current Rx Age Location: Left eye Pain: 0 - No pain Quality: Severity: Moderate Duration: Years Timing: Constant Lasts: Continuous Context: Change in vision in left eye since falling, hitting her head. Feels like the PCIOL has moved in her left eye...this is how she describes it. Modifying factors: Associated Signs & Symptoms: Attestation: ROS Constitutional: ENT/Mouth NL Cardiovascular: NL Respiratory: NL Gastrointestinal: NL Genitourinary: NL Musculoskeletal: NL Integumentary: NL Neurologic: Seizures Psychiatric: NL Endocrine: NL Hematologic: NL Immunologic: NL Metal Inspector: Exposures: None Other: Attestation: Allergies include: Sulfa (sulfonamide antibiotics) Patient Active Problem List Diagnoses ??? Other chronic pain ??? Pain in joint, shoulder region ??? Hip pain, left Outpatient Prescriptions Marked as Taking for the 07/02/12 encounter (Office Visit) with Christian Ballesteros MD Medication Sig ??? Morphine 30 mg TbSO Take by mouth 2 times daily. ??? VALACYCLOVIR HCL (VALTREX ORAL) Take by mouth daily. ??? DIPHENHYDRAMINE HCL (BENADRYL ALLERGY ORAL) Take by mouth. ??? OXCARBAZEPINE (TRILEPTAL ORAL) Take by mouth. History reviewed. No pertinent past medical history. Past Surgical History Procedure Date ??? Cataract removal with implant 2004 Family History Problem Relation Age of Onset ??? Macular Degen Mother ??? Glaucoma Neg Hx ??? Retinal Detachment Neg Hx Patient reports that she has been smoking. She does not have any smokeless tobacco history on file. Base Ophthalmology Exam Visual Acuity Right Left Both Dist sc 20/20 -2 CF at 3' Method: Snellen - Linear Tonometry Right Left Pressure 15 15 Method: Applanation Time: 15:22 Manifest Refraction (Auto) Sphere Cylinder [place] Right -0.50 +0.25 90 Left -2.75 +1.25 045 Dilation Both eyes: 1.0% Mydriacyl, 2.5% Phenylephrine @ 15:22 Pupils Pupils Dark React APD Right PERRL 2.5 None Left PERRL 4 none None Visual Willis Right Left Result Full Full Extraocular Movement Right Left Result Full Full Main Ophthalmology Exam Slit Lamp Exam Right Left Lids/Lashes Normal Normal Conjunctiva/Sclera White and quiet White and quiet Cornea Clear Clear Anterior Chamber Deep and quiet Deep and quiet Iris Round and reactive Round and reactive Lens Posterior chamber intraocular lens one piece Posterior chamber intraocular lens nasaly dislocated w/torn capsule Fundus Exam Right Left Vitreous Normal Normal Disc Peripapillary atrophy Peripapillary atrophy C/D Ratio 0.3 0.3 Macula Normal Normal Vessels Normal Normal Periphery Normal Normal Neuro/Psych Oriented x3: Yes Mood/Affect: Normal DIAGNOSTIC TESTS: IMPRESSION & PLAN: Dislocated one piece PCIOL w/ torn capsule, at risk for dislocation into the vitreous, left eye -will refer to [facility] retina for evaluation, within 2 weeks -RTC PRN Pseudophakia, right eye -stable I have reviewed the patient's past medical, family, social and surgical history. I have also reviewed the patient's medications, allergies, and problem list. I performed my own HPI and have reviewed the tech's ROS as well. I personally completed this exam myself. Christian Ballesteros MD I am scribing for Christian Ballesteros MD, while he is personally performing the service. Patient Education Topic: dislocated PCIOL Method: Verbal Taught to: Patient Barriers: None Outcomes: independent Signature: ADAM Johnson The patient was instructed to call our office or go to emergency room if worse vision, worse symptoms, or new/other concerns arise. documented in this encounter Plan of Treatment Not on filedocumented as of this encounter Visit Diagnoses Diagnosis Pseudophakia of both eyes - Primary Lens replaced by other means Dislocated IOL (intraocular lens), poste rior Posterior dislocation of lens documented in this encounter Discontinued Medications Medication Sig Discontinue Reason Start Date End Date aspirin 325 mg tablet Take 325 mg by 10/2012 mouth every 6 hours as needed. ASPIRIN/ACETAMINOPHEN/CAF Take by mouth 3 07/02/2012 FEINE (EXCEDRIN EXTRA times daily. STRENGTH ORAL) OXYCODONE HCL (OXYCODONE Take 50 mg by mouth 07/02/2012 ORAL) daily. CARVEDILOL ORAL Take by mouth 2 3 times daily. documented as of this encounter Eye Exam Visual Acuity (Snellen - Linear) Right eye Left eye Dist sc 20/20 -2 CF at 3' Tonometry (Applanation, 15:22) Right eye Left eye Pressure 15 15 Pupils Pupils Dark React APD Right eye PERRL 2.5 None Left eye PERRL 4 none None Visual Willis Right eye Left eye Full Full Extraocular Movement Right eye Left eye Full Full Neuro/Psych Oriented x3: Yes Mood/Affect: Normal Dilation Both eyes: 1.0% Mydriacyl, 2.5% Phenylep hrine @ 15:22 Slit Lamp Exam Right eye Left eye Lids/Lashes Normal Normal Conjunctiva/Sclera White and quiet White and quiet Cornea Clear Clear Anterior Chamber Deep and quiet Deep and quiet Iris Round and reactive Round and reactive Lens Posterior chamber intraocular one piece Posterior chamber lens intraocular lens dorothy cee dislocated w/torn ca psule Vitreous Normal Normal Fundus Exam Right eye Left eye Disc Peripapillary atrophy Peripapillary atro phy C/D Ratio 0.3 0.3 Macula Normal Normal Vessels Normal Normal Periphery Normal Normal Manifest Refraction (Auto) Sphere Cylinder [place] Right eye -0.50 +0.25 90 Left eye -2.75 +1.25 045 Care Teams Addiction Social Worker Relationship Specialty Start Date End Date Amber Kraus MD PCP - General 06/06/12 [address] [place] [phone] documented as of this encounter
--- OUTSIDE RECORDS SUMMARY | 2022-01-11 03:33 | XMS_ITS | Encounter Summary ---
:[address] [facility] Address [address] [place] [address] Care Team Providers Name Role Phone Marcial Tinsley MD Primary Care Provider Encounter Details Date Type Department Care Team Description 12/13/[address] [facility] - Unknown, ProviderMD [facility] Florecita Bhagat MD [address] [facility] [address] [place] [phone] Medical Center Xochitl Gonzales MD [address] [phone] Interventional Pain [address] [place], [place] [address] Social History Tobacco Use Types Packs/Day Years Used Date Smoking Tobacco: Never Assessed Sex Assigned at Date Recorded Not on file documented as of this encounter Discharge Disposition Disposition Code Departure Means Destination Home or Self Skilled Nursing documented in this encounter Progress Notes Xochitl Gonzales MD - 12/13/2008 0000 EDT DIVISION OF PAIN MANAGEMENT PROGRESS/FOLLOWUP NOTE - 12/13/2008 Ms. Han comes to the clinic at the request of Dr. Marcial Tinsley. Upon initial visit to our PainClinic, the patient states she is not interested in discussing with any physician other than a psychologist or psychiatrist her pain medications and she is not interested in any intervention or injection therapy. She again is not interested in discussing her pain with myself or Dr. Bhagat and as such, we have rescheduled her for a visit with the pain psychologist at our clinic. She is to return to see Anju at her earliest convenience. Supervising Physician Electronically Signed by Florecita Bhagat MD 12/23/2008 17:33 Xochitl Gonzales MD Florecita Bhagat MD - Xochitl Gonzales MD - [facility] Job ID: SM Doc ID: [id number] Ext Doc ID: [id number] cc: Marcial Tinsley MD documented in this encounter Plan of Treatment Not on filedocumented as of this encounter Visit Diagnoses Not on filedocumented in this encounter Care Teams Checkman Relationship Specialty Start Date End Date Marcial Tinsley MD PCP - General 10/03/08 06/05/[address] [place] [phone] documented as of this encounter
--- OUTSIDE RECORDS SUMMARY | 2022-01-11 03:33 | XMS_ITS | Encounter Summary ---
:1945 Author Organization [facility] Address [address] [place] [address] Care Team Providers Name Role Phone Marcial Tinsley MD Primary Care Provider Amber Kraus MD Primary Care Provider Encounter Details Date Type Department Care Team Description 05/22/2001 Hospital Encounter [facility] - Shant Palmer MD Other Unknown, Provider, [address] [place] [address] Social History Tobacco Use Types Packs/Day Years Used Date Smoking Tobacco: Some Days Sex Assigned at Date Recorded Not on file documented as of this encounter Plan of Treatment Not on filedocumented as of this encounter Procedures Procedure Name Priority Date/Time Associated Diagnosis Comme nts SURGICAL PATHOLOGY Routine 05/22/2001 0:00 EST Re sults for this procedure are i n the results section. documented in this encounter Results SURGICAL PATHOLOGY (05/22/2001 0:00 EST) Component Value Ref Test Analysis Performed At [facility] Method Time Signature Pathology SURGICAL PATHOLOGY REPORT TOMAS CASTRO Report: Reports generated via electronic interface contain origina l data; ELMIRA ORTIZ however they are lacking the format of the original report. Caution should be taken when reading/interpreting unformatte d reports. Name: ? LUCIA HAN ? Accession #: ? [id number] ? : ? 1945 (Age: 55) ??F ? Collect Date: ? 05/22/2001 ? Location: ? [facility] ? Receive Date: ? 05/22/2001 ? Provider: SHANT PALMER MD Copy to: ? Final Pathologic Diagnosis: ? Skin of leg, right lower, shave biopsy: 1. ?Superficial perivascular dermatitis with epidermal hyperplasia and focal interface inflammation. ??See microscopic and comment. Comment: ? It is difficult to render a speci fic diagnosis on this biopsy given the superficial nature of the sh ave biopsy. ??A punch biopsy with representation of the superficial and deep vas cular plexus, together with superficial subcutis if a deep process is suspected, is preferable. ??Nevertheless, the biopsy does show superficial dermal inflammat ion with epidermal changes including hyperplasia and interface vacuolization. ??Our differential diagnosis would include lichen simplex chronicus as well as a drug-related eruption. ??The features are not those of erythema multiforme given the features of chronicit y including epidermal hyperplasia, hyper granulosis and hyperkeratosis. ??As you noted, other dermatologic conditions asso ciated with hepatitis C cannot be excluded given the lack of investment representative dermi s. ??Correlation with the clinical appearance of the lesion(s) with additional biopsies, if clinically oscar anted, is recommended. (Dr. Faith)/jong Microscopic Description: ? Sections consist of a shave biopsy of skin that trans ects the lower epidermis and superficial de rmis. ??The stratum corneum is thickened by compact orthohyperkeratosis, parakeratosis, and scale crust. ??The e pidermis is irregularly hyperplastic with an accentuated rete architec ture. ??Where the dermal-epidermal junction is represented, there is vacuolization of the basal zone accompanied by exocytosis of lymphomononuclear cells. ? ?Scattered degenerating keratinocytes are noted. ??There is a focal pun ctate zone of epidermal erosion associated with erythr ocyte extravasation. ??In general, the keratinocytes show application consultant maturation with reactive nuclear changes. ??The granular layer is thickened. ??Where the dermis is represented, there is a patchy lymphomononuclear infiltrate. ??(Dr. Faith)/klb Document reviewed and electronically signed by: Anali Faith MD Report ??Date: 05/26/2001 16:32 By the signature above, the attending physician certifies th at he/she has personally conducted a gross and/or microscopic examin ation of the described specimens and rendered or confirmed the above diagnosis. Specimen(s) Received: ? [facility] [id number] (1) Clinical History: ? Skin lesion; hepatitis C Gross Description: ? One slide is received for review from [facility] labelled [id number]. End of Report Specimen (Source) Anatomical Collection Method Collection Time Re ceived Time Location / / Volume Laterality 05/22/2001 05/22/2001 14:0 2 EST Shant Palmer MD PATHOLOGY ORDERABLES Performing Organization Address City/State/ZIP Code Phon e Number [facility] [address] [place] [address] SERVICES [facility] [address] [place] [address] documented in this encounter Visit Diagnoses Not on filedocumented in this encounter Care Teams Castings Trimmer Relationship Specialty Start Date End Date Marcial Tinsley MD PCP - General 10/03/08 06/05/12 [address] [place] [phone] Amber Kraus MD PCP - General 06/06/12 [address] [place] [phone] documented as of this encounter
--- OUTSIDE RECORDS SUMMARY | 2022-01-11 03:33 | XMS_ITS | Encounter Summary ---
:1945 Author Organization [facility] Address [address] [place] [address] Care Team Providers Name Role Phone Marcial Tinsley MD Primary Care Provider Amber Kraus MD Primary Care Provider Reason for Visit Reason Onset Date Comments Appointment Related 05/07/2012 Encounter Details Date Type Department Care Team Description 05/07/2012 Telephone [facility] - Denise Guerrero ppointment Related [facility] [address] [place], [place] [address] Social History Tobacco Use Types Packs/Day Years Used Date Smoking Tobacco: Some Days Sex Assigned at Date Recorded Not on file documented as of this encounter Miscellaneous Notes Telephone Encounter - Alexia Crenshaw RN - 05/07/2012 1243 EDT ALEXIA CRENSHAW RN Telephone Encounter - Denise Guerrero RN - 05/07/2012 1020 EDT Pt called wishing to speak to [facility] whose was not in clinic at time of call. Call transferred to nurse clinician. She wished to express her dissatisfaction with her visit with Dr Bhagat. She feels she was not listened to, was talked over and did not hear what she was saying about recommending to PCP to increase her pain meds and or write for more. She requested that notes not be sent to PCP as she did not agree with plan and she did not want to be charged for this visit and did not want Medicare or her insurance billed for this. RN asked if she expressed this at the time of her visit. Shestates she left very confused and has had time to think about it. RN attempted to review how opioid t herapy prescribing is used and she states she knows that since Dr Bhagat advised her it is reserved for cancer patients and she know Dr Scott would have made the recommendations to her PCP to increase the dose and written extra. She has seen Sonia in the past along with Olayinka and she thought she was seeing Sonia. She said this was a total waste and wants her requests about billing honored and she did not wish to see Dr Scott as she is out of money and cannot and will not come here again. She states sheis 68 y/o and has tried it all and just wanted more meds. RN advised her message will be forwarded to [facility] and Dr Bhagat. documented in this encounter Plan of Treatment Not on filedocumented as of this encounter Visit Diagnoses Not on filedocumented in this encounter Care Teams Packing Room Inspector Relationship Specialty Start Date End Date Marcial Tinsley MD PCP - General 10/03/08 06/05/12 [address] [place] [phone] Amber Kraus MD PCP - General 06/06/12 [address] [place] [phone] documented as of this encounter
--- OUTSIDE RECORDS SUMMARY | 2022-01-11 03:33 | XMS_ITS | Encounter Summary ---
:1945 Author Organization [facility] Address [address] [place] [address] Care Team Providers Name Role Phone Unavailable Primary Care Provider Unavailable Encounter Details Date Type Department Care Team Description 01/05/2004 Hospital Encounter [facility] - Aung Golden, [facility] [address] [address] SUZANNE SIM [phone] (Wo rk) Social History Tobacco Use Types Packs/Day Years Used Date Smoking Tobacco: Never Assessed Sex Assigned at Date Recorded Not on file documented as of this encounter Discharge Disposition Disposition Code Departure Means Destination Auto Discharge documented in this encounter Plan of Treatment Not on filedocumented as of this encounter Procedures Procedure Name Priority Date/Time Associated Diagnosis Comme nts MR UPPER EXTREM JT Routine 01/05/2004 14:37 Resul ts for this W/CONTRAST EST procedure are i n the results section. FL GUIDE LOCATION, Routine 01/05/2004 13:46 Resul ts for this ASPIRATION, EST procedure are i n INJECTION, BIOPSY the result s section. documented in this encounter Results MR UPPER EXTREM JT W/CONTRAST (01/05/2004 14:37 EST) Anatomical Region Laterality Modality Other Specimen (Source) Anatomical Collection Method Collection Time Re ceived Time Location / / Volume Laterality 01/05/2004 14:37 EST Narrative 10/27/2008 14:38 EDT PAIN AND INTERNAL ROTATION AND WEAKNESS IN LT SHOULDER R/O BICEPS/SUBSCAPLAR TEAR VS. LABRAL DE RANGEMENT MEDICAID MR ARTHROGRAM, LEFT SHOULDER: TECHNIQUE: Following an arthrogram of the left shou lder, axial, coronal and sagittal T1 weighted sequences were obta ined with and without fat saturation. A coronal T2 weighted sequen ce was also obtained. FINDINGS: Some of the gadolinium injected into the glenohumeral joint has crossed into the subacromial-subdeltoid bursa. This communication between these two spaces is due to a com plete tear of the subscapularis tendon which is retracted for 3 cm. There is also some moderate atrophy of the subscapularis mu scle. There is also a high-grade partial tear of the supraspinatus tendon with more than 75% of the thickness of t he tendon which is torn. The tear measures 2 cm in the coronal plane. The infraspinatus tendon appears intact, but there is some signal abnormalities indicating tendinopathy. There are some degenerative changes in t he glenohumeral joint with moderate thinning of the cartilage invol ving the inferior half of the glenoid with associated degenerative cys t in the inferior portion of the glenoid. The biceps tendon has some increased sig nal within it in its intra-articular portion indicating degen erative changes. There is no evidence for a tear of that tendon. Superior labrum has frayed edge which is consistent with either degenerative changes or a small tear. 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 CONCLUSION: Complete tear of the subscapularis tendo n with retraction of the tendon and moderate atrophy of the subsc apularis muscle. This has allowed the gadolinium to penetrate into the subacromial-subdeltoid bursa. High-grade partial tear of the supraspin atus tendon with approximately 75% of the thickness of the tendon which is torn. Moderate degenerative changes of the car tilage involving the glenohumeral joint with associated degen erative cyst in the inferior portion of the glenoid. Frayed appearance of the superior labrum consistent with degenerative changes. Moderate tendinopathy of the biceps tend on. dw Procedure Note Karyn Kennedy MD - 10/27/2008Formatt ing of this note might be different from the original. PAIN AND INTERNAL ROTATION AND WEAKNESS IN LT SHOULDER R/O BICEPS/SUBSCAPLAR TEAR VS. LABRAL DE RANGEMENT MEDICAID MR ARTHROGRAM, LEFT SHOULDER: TECHNIQUE: Following an arthrogram of the left shou lder, axial, coronal and sagittal T1 weighted sequences were obta ined with and without fat saturation. A coronal T2 weighted sequen ce was also obtained. FINDINGS: Some of the gadolinium injected into the glenohumeral joint has crossed into the subacromial-subdeltoid bursa. This communication between these two spaces is due to a com plete tear of the subscapularis tendon which is retracted for 3 cm. There is also some moderate atrophy of the subscapularis mu scle. There is also a high-grade partial tear of the supraspinatus tendon with more than 75% of the thickness of t he tendon which is torn. The tear measures 2 cm in the coronal plane. The infraspinatus tendon appears intact, but there is some signal abnormalities indicating tendinopathy. There are some degenerative changes in t he glenohumeral joint with moderate thinning of the cartilage invol ving the inferior half of the glenoid with associated degenerative cys t in the inferior portion of the glenoid. The biceps tendon has some increased sig nal within it in its intra-articular portion indicating degen erative changes. There is no evidence for a tear of that tendon. Superior labrum has frayed edge which is consistent with either degenerative changes or a small tear. 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 CONCLUSION: Complete tear of the subscapularis tendo n with retraction of the tendon and moderate atrophy of the subsc apularis muscle. This has allowed the gadolinium to penetrate into the subacromial-subdeltoid bursa. High-grade partial tear of the supraspin atus tendon with approximately 75% of the thickness of the tendon which is torn. Moderate degenerative changes of the car tilage involving the glenohumeral joint with associated degen erative cyst in the inferior portion of the glenoid. Frayed appearance of the superior labrum consistent with degenerative changes. Moderate tendinopathy of the biceps tend on. dw Yaya Golden MD G MRI ORDERABLES FL GUIDE LOCATION, ASPIRATION, INJECTION, BIOPSY (01/05/2004 13:46 EST) Anatomical Region Laterality Modality Other Specimen (Source) Anatomical Collection Method Collection Time Re ceived Time Location / / Volume Laterality 01/05/2004 13:46 EST Narrative 10/27/2008 14:38 EDT PAIN AND INTERNAL ROTATION AND WEAKNESS IN LT SHOULDER R/O BICEPS/SUBSCAPLAR TEAR VS. LABRAL DE RANGEMENT MEDICAID FLUOROSCOPICALLY-GUIDED LEFT SHOULDER AR THROGRAM: 01/05/2004, 1300 HOURS CLINICAL HISTORY: Pain and internal rotation and weakness in left shoulder. Rule out biceps, subscapularus tear versus labral derangement. TECHNIQUE AND FINDINGS: The risks and benefits of the procedure were explained to the patient and proper consent was obtained. The patient's left shoulder was prepped and draped in the usual sterile manner. 1% lidocaine was injecte d subcutaneously in the region of the glenohumeral joint with a 25-gauge needle. A 22-gauge needle was inserted under fluoroscopic g uidance into the glenohumeral joint and Hypaque confirmed proper local ization within the glenohumeral joint. A mixture of saline, gadolinium, and epinephrine was injected into the glenohumeral joint . Internal-external rotation views of the left shoulder demonstrate contrast extravasating outside the gleno humeral joint, compatible with a rotator cuff tear. The patient was taken to MRI post-proced ure. There were no complications. Dr. Karyn Kennedy was present for the entire procedure. /community health Procedure Note Sharmila Fuentes MD / Karyn Kennedy MD - 10/27/2008 PAIN AND INTERNAL ROTATION AND WEAKNESS IN LT SHOULDER R/O BICEPS/SUBSCAPLAR TEAR VS. LABRAL DE RANGEMENT MEDICAID FLUOROSCOPICALLY-GUIDED LEFT SHOULDER AR THROGRAM: 01/05/2004, 1300 HOURS CLINICAL HISTORY: Pain and internal rotation and weakness in left shoulder. Rule out biceps, subscapularus tear versus labral derangement. TECHNIQUE AND FINDINGS: The risks and benefits of the procedure were explained to the patient and proper consent was obtained. The patient's left shoulder was prepped and draped in the usual sterile manner. 1% lidocaine was injecte d subcutaneously in the region of the glenohumeral joint with a 25-gauge needle. A 22-gauge needle was inserted under fluoroscopic g uidance into the glenohumeral joint and Hypaque confirmed proper local ization within the glenohumeral joint. A mixture of saline, gadolinium, and epinephrine was injected into the glenohumeral joint . Internal-external rotation views of the left shoulder demonstrate contrast extravasating outside the gleno humeral joint, compatible with a rotator cuff tear. The patient was taken to MRI post-proced ure. There were no complications. Dr. Karyn Kennedy was present for the entire procedure. /abraham Yaya Golden MD IMG FLUOROSCOPY ORDERABLES documented in this encounter Visit Diagnoses Not on filedocumented in this encounter
--- OUTSIDE RECORDS SUMMARY | 2022-01-11 03:33 | XMS_ITS | Encounter Summary ---
:1945 Author Organization [facility] Address [address] [place] [address] Care Team Providers Name Role Phone Marcial Tinsley MD Primary Care Provider Reason for Visit Reason Comments Hip Pain left hip pain Neck Pain Shoulder Pain left shoulder pain Encounter Details Date Type Department Care Team Description 05/04/2012 Office Visit [facility] - Florecita Bhagat, Hip p ain, left (Primary Dx); [facility] Pain in joint, shoulder region; [address] Other chronic pain Interventional Pain [address] [place] [address] Dr Hernández [place], [place] [address] [place], [place] [phone] Social History Tobacco Use Types Packs/Day Years Used Date Smoking Tobacco: Some Days Sex Assigned at Date Recorded Not on file documented as of this encounter Last Filed Vital Signs Vital Sign Reading Time Taken Comments Blood Pressure 120/83 05/04/2012 1333 EDT Pulse 67 05/04/2012 1333 EDT Temperature 35.8 ??C (96.4 ??F) 05/04/2012 1333 EDT Respiratory Rate 16 05/04/2012 1333 EDT Oxygen Saturation - - Inhaled Oxygen Concentration - - Weight 45.8 kg (101 lb) 05/04/2012 1333 EDT Height 162.6 cm (5' 4) 05/04/2012 1333 EDT Body Mass Index 17.34 05/04/2012 1333 EDT documented in this encounter Progress Notes BhagatMelindai - 05/04/2012 1353 EDT [facility] Follow Up Visit Patient Name: Den Han : 1945 Date of Service: 05/04/2012 Chief Complaint: Chief Complaint Patient presents with ??? Hip Pain left hip pain ??? Neck Pain ??? Shoulder Pain left shoulder pain Mechanical Meter Tester: Florecita Bhagat MD Route Sales Delivery Drivers Supervisor: none Follow up Visit Interval History: Ms. Den Han returns to clinic today for a follow up visit at the initial request of Marcial Tinsley for continued evaluation and treatment of her chronic pain syndrome that is currently managed with opioid therapy. The patient was last seen by Dr. Scott one year ago and treatment modalities recommended/performed at that time included recommendations for continued medicationmanagement. She has not had many changes since that appointment. Her complaints today are similar in character, distribution and intensity with comparison to reports at the last visit. She has some focus of pain to her left shoulder and hip. She defers any further consultation or referral to other specialties for further work-up. She states she is on a tight budget and does not think she can afford any further treatments with her current insurance coverage. She states she is very specifically here to today to ask for recommendations to double her Morphine dose. She states she has tried it and it is helpful. She even suggests taking 2 once a day for increased relief during the day. She rates her pain a Today a 6/10. She has not had additional adjunctive therapy or medication changes since our last visit. She does state over the past 20 years she has tried many medications with no effect or side effects.She does not believe she has tried combinations of these medications. She is also continuing to see a counselor in the [facility] area. Allergies Allergen Reactions ??? Sulfa (Sulfonamide Antibiotics) Anaphylaxis Current Outpatient Prescriptions Medication Sig Dispense Refill ??? ASPIRIN/ACETAMINOPHEN/CAFFEINE (EXCEDRIN EXTRA STRENGTH ORAL) Take by mouth 3 times daily. ??? Morphine 30 mg TbSO Take by mouth 2 times daily. ??? CARVEDILOL ORAL Take by mouth 2 times daily. ??? VALACYCLOVIR HCL (VALTREX ORAL) Take by mouth daily. ??? OXYCODONE HCL (OXYCODONE ORAL) Take 50 mg by mouth daily. ??? aspirin 325 mg tablet Take 325 mg by mouth every 6 hours as needed. ??? DIPHENHYDRAMINE HCL (BENADRYL ALLERGY ORAL) Take by mouth. ??? OXCARBAZEPINE (TRILEPTAL ORAL) Take by mouth. Physical Exam: Vitals: Blood pressure 120/83, pulse 67, temperature 35.8 ??C (96.4 ??F), temperature source Tympanic, resp. rate 16, height 162.6 cm (64), weight 45.813 kg (101 lb). PE: GEN: Patient is an otherwise pleasant white female who appears older than stated age. Patient isin NAD. Alert and oriented x3 and appropriate in conversation today. Ambulates with a cane for an assist device. Patient has antalgic asymmetric gait. The rest of the physical exam was deferred by the patient and due to time constraints was limited. PULM: Non labored breathing. Assessment: Patient is a 66 y.o. year old female with a chronic pain syndrome and a primary complaint of left shoulder and hip pain secondary to the associated diagnoses below. Encounter Diagnoses Name Primary? Hip pain, left Yes ??? Pain in joint, shoulder region ??? Other chronic pain Recommendations: Our recommendation today address her primary questions for follow up today about recommendations formedication management. Considering her long history of medication trials over 20 years, we discussedstarting fresh with the addition of other adjunctive central acting pain medications that could be considered for addition to the current regimen. These include anticonvulsants (neurontin, lyrica) and/or antidepressants (TCA - amitriptyline or nortriptyline: SNRI - Cymbalta or Effexor) as well as muscle relaxants (balcofen, tizanadine, robaxin). Other pain medications such as Tylenol or Ultram can also be considered. We discussed the goal would be to titrate down the current requirement of the Narcotic regimen as the continued trial of the adjunctive medications progresses. I did not encourage increasing the dose of narcotic prior to having other adjunctive medications in her regimen. We did discuss that these medication trials need to be done with one medication at a time and allow for an appropriate time frame to escalate dosing and evaluate response vs. side effects. The synergistic effect of combinations of these medications can be very beneficial as it can allow the use of lower doses to help avoid side effects. These trials usually require 6-12 weeks per medication to appropriately exhaust dosing options. One other option would be compounding creams that include local anesthetic and other agents such as Ketamine, NSAIDs, and Anticonvulsants. Lidoderm or Flector patches could also be included. Other alternative modalities such as aqua therapy, nontraditional physical therapy treatments that include postural advent and myofascial release methods, biofeedback, accupuncture and the use of a TENS unit can also be considered. These options have been communicated to the patient and [facility] so they can devise a plan moving forward. We are available for further consultation by phone or follow up if necessary. We do appreciate this opportunity for consultation and participation in treatment of Den Han's chronic pain syndrome. She is welcome to return if her pain becomes more localized to her hip or shoulder or spine if she changed her mind about the possibility of injection therapy. We would need to schedule her for a consultation for appropriate time to do a full evaluation and exam for possible injection at that time. I did have greater than 20 minutes of face to face conversation with this patient today discussing the clinical, objective findings and treatment recommendations considered and reviewed above. documented in this encounter Plan of Treatment Not on filedocumented as of this encounter Visit Diagnoses Diagnosis Hip pain, left - Primary Pain in joint, pelvic region and thigh Pain in joint, shoulder region Other chronic pain documented in this encounter Historical Medications This list may reflect changes made after this encounter. Medication Sig Dispensed Refills Start Date End Date Morphine 30 mg TbSO Take by mouth 2 0 times daily. ASPIRIN/ACETAMINOPHEN/CAF Take by mouth 3 0 07/02/2012 FEINE (EXCEDRIN EXTRA times daily. STRENGTH ORAL) added in this encounter Care Teams Business Office Representative Relationship Specialty Start Date End Date Marcial Tinsley MD PCP - General 10/03/08 06/05/[address] [place] [phone] documented as of this encounter
--- OUTSIDE RECORDS SUMMARY | 2022-01-11 03:33 | XMS_ITS | Encounter Summary ---
:1945 Author Organization [facility] Address [address] [place] [address] Care Team Providers Name Role Phone Unavailable Primary Care Provider Unavailable Encounter Details Date Type Department Care Team Description 07/27/[address] [facility] - Jose Parrish MD Other Unknown, Provider, [address] [place] [address] Social History Tobacco Use Types Packs/Day Years Used Date Smoking Tobacco: Never Assessed Sex Assigned at Date Recorded Not on file documented as of this encounter Discharge Disposition Disposition Code Departure Means Destination Auto Discharge documented in this encounter Plan of Treatment Not on filedocumented as of this encounter Procedures Procedure Name Priority Date/Time Associated Comments Diagnosis MISCELLANEOUS TEST, Routine 08/03/1999 13:18 Resu lts for this CHINOOK EDT procedure are i n the results section. URINE CHEMICAL (DIP) & Routine 07/27/1999 11:21 R esults for this SEDIMENT (MICRO) EDT procedure a re in WITHOUT REFLEX TO the result s CULTURE section. HEMAGRAM & DIFF Routine 07/27/1999 11:17 Results for this EDT procedure are i n the results section. TESTS ADDED BY PHONE Routine 07/27/1999 11:17 Res ults for this EDT procedure are i n the results section. AFP TUMOR MARKER Routine 07/27/1999 11:17 Results for this EDT procedure are i n the results section. PROTIME Routine 07/27/1999 11:17 Results for this EDT procedure are i n the results section. BILIRUBIN Routine 07/27/1999 11:17 Results for this DIRECT/INDIRECT EDT procedure ar e in the results section. HIV 1/2 ANTIGEN AND Routine 07/27/1999 11:17 Resu lts for this ANTIBODY, 4TH EDT procedure are in GENERATION the results section. QUANT BETA HCG, Routine 07/27/1999 11:17 Results for this EDT procedure are i n the results section. TSH Routine 07/27/1999 11:17 Results for this EDT procedure are i n the results section. LIPID PROFILE Routine 07/27/1999 11:17 Results fo r this (INCLUDES CHOLESTEROL, EDT proce dure are in TRIGLYCERIDES, HDL, the resu lts LDL) section. COMPREHENSIVE Routine 07/27/1999 11:17 Results fo r this METABOLIC PANEL (CMP) EDT proced ure are in the results section. CHEST PA AND LATERAL Routine 07/27/1999 10:50 Res ults for this EDT procedure are i n the results section. documented in this encounter Results MISCELLANEOUS TEST (08/03/1999 13:18 EDT) [facility] Method Time Signature Test Name HEP C RNA BY PCR [facility] Result Positive [facility] Quantitation = [id number] copies/ml [facility] Ref Range See supplementary [facility] report [facility] Ref Lab [facility] Specimen Anatomical Collection Method Collection Time Receive d Time (Source) Location / / Volume Laterality 08/03/1999 13:18 08/03/1999 EDT 13:18 EDT Jensen Parrish MD CHEMISTRY & BLOOD GAS ORDERA BLES Performing Organization Address City/State/ZIP Code Phon e Number [facility] [address] [place] [address] SERVICES [facility] [address] [place] [address] (ABNORMAL) UA WITH MICROSCOPIC (07/27/1999 11:21 EDT) [facility] Method Time Signature Color, UA Yellow [facility] Clarity, UA Clear [facility] Glucose, UA Norm NORM [facility] Bilirubin, UA Neg NEG [facility] Ketones, UA Neg NEG [facility] Specific 1.020 1.005 - [facility] [place], 1.02 [facility] Urine Blood, UA Trace (A) NEG [facility] pH, UA 5.0 5.0 - 9.0 [facility] Protein, UA Trace (A) NEG [facility] Urobilinogen, Norm NORM [facility] UA mg/dL [facility] Nitrite, UA Neg NEG [facility] Leuk Esterase Neg NEG [facility] WBC, UA None seen 0 - 5 [facility] /HPF [facility] RBC, UA less than 1 0 - 5 [facility] /HPF [facility] Squam Few (A) NS /HPF [facility] Epithel, UA [facility] Renal None seen NS /HPF [facility] Epithel, UA [facility] Bacteria, UA None seen NS /HPF [facility] Crystals, UA None seen /HPF [facility] Hyaline None seen /LPF [facility] Casts, UA [facility] UA Comment Microscopic results [facility] are unreliable on [facility] urines unrefrig >2hrs or refrig >8hrs. Specimen Anatomical Collection Method Collection Time Receive d Time (Source) Location / / Volume Laterality 07/27/1999 11:21 07/27/1999 EDT 11:32 EDT Jensen Parrish MD URINALYSIS ORDERABLES Performing Organization Address City/[facility] Phon e Number [facility] [address] [place] [address] SERVICES [facility] [address] [place] [address] TSH (07/27/1999 11:17 EDT) athologist Signature TSH 1.30 0.35 - 5.50 [facility] uIU/ml LAB Specimen Anatomical Collection Method Collection Time Receive d Time (Source) Location / / Volume Laterality 07/27/1999 11:17 07/27/1999 EDT 11:32 EDT Jensen Parrish MD CHEMISTRY & BLOOD GAS ORDERA BLES Performing Organization Address City/[facility] Phon e Number [facility] [address] [place] [address] SERVICES [facility] [address] [place] [address] PROTIME (07/27/1999 11:17 EDT) athologist Signature Pro Time 12.5 11.7 - 13.4 [facility] secs [facility] I.N.R. 1.0 0.8 - 1.2 [facility] Comment: Moderate Intensity Coumadin INR = 2.0-3. 0 Adjustments in anticoagulant therapy dos e should be based upon the INR and NOT the Pro Ti me Specimen Anatomical Collection Method Collection Time Receive d Time (Source) Location / / Volume Laterality 07/27/1999 11:17 07/27/1999 EDT 11:32 EDT Jensen Parrish MD HEMATOLOGY & PF4 ORDERABLES Performing Organization Address City/State/ZIP Code Phon e Number [facility] [address] [place] [address] SERVICES [facility] [address] [place] [address] LIPID PROFILE (INCLUDES CHOLESTEROL, TRIGLYCERIDES, HDL, LDL) (07/27/1999 11:17 EDT) P athologist Signature Cholesterol 254 mg/dl [facility] Comment: Desirable:<200 Borderline:200-239 High Risk:>ve=[id number] Triglycerides 72 35 - 160 mg/dl [facility] HDL 64 mg/dl [facility] Comment: Highly Desirable:>60 Desirable:35-60 High Risk:<35 LDL, Calculated 176 mg/dl [facility] Comment: Desirable:<130 Borderline:130-159 High Risk:>bn=[id number] Chol/HDL Ratio 4.0 [facility] Specimen Anatomical Collection Method Collection Time Receive d Time (Source) Location / / Volume Laterality 07/27/1999 11:17 07/27/1999 EDT 11:32 EDT Jensen Parrish MD CHEMISTRY & BLOOD GAS ORDERA BLES Performing Organization Address City/[facility]/ZIP Code Phon e Number [facility] [address] [place] [address] SERVICES [facility] [address] [place] [address] HIV ANTIBODY ([place]ERA) (07/27/1999 11:17 EDT) Analysis Performed At Patho logist Time Signature HIV 1/2 NONREACT. NR [facility] Antibody [facility] Specimen Anatomical Collection Method Collection Time Receive d Time (Source) Location / / Volume Laterality 07/27/1999 11:17 07/27/1999 EDT 11:32 EDT Jensen Parrish MD IMMUNOLOGY AND SEROLOGY SWATHI [place] Performing Organization Address City/[facility]/ZIP Code Phon e Number [facility] [address] [place] [address] SERVICES [facility] [address] [place] [address] HCG (07/27/1999 11:17 EDT) athologist [facility] HCG <4 mIU/ml [facility] Comment: <4 = Negative 4-10 = Borderline, recommend repeat. Test added by phone Specimen Anatomical Collection Method Collection Time Receive d Time (Source) Location / / Volume Laterality 07/27/1999 11:17 07/27/1999 EDT 11:32 EDT Jensen Parrish MD CHEMISTRY & BLOOD GAS ORDERA BLES Performing Organization Address City/State/ZIP Code Phon e Number [facility] [address] [place] [address] SERVICES [facility] [address] [place] [address] DIRECT BILIRUBIN (07/27/1999 11:17 EDT) athologist [facility] Conjugated 0.0 0.0 - 0.3 [facility] Bilirubin mg/dl [facility] Unconjugated 0.1 0.1 - 1.1 [facility] Bilirubin mg/dl [facility] Specimen Anatomical Collection Method Collection Time Receive d Time (Source) Location / / Volume Laterality 07/27/1999 11:17 07/27/1999 EDT 11:32 EDT Jensen Parrish MD CHEMISTRY & BLOOD GAS ORDERA BLES Performing Organization Address City/[facility]/ZIP [facility] Phon e Number [facility] [address] [place] [address] SERVICES [facility] [address] [place] [address] (ABNORMAL) COMPREHENSIVE METABOLIC PANEL (07/27/1999 11:17 EDT) athologist [facility] Potassium 4.4 3.5 - 5.0 [facility] mEq/L [facility] Sodium 142 136 - 145 [facility] mEq/L [facility] Chloride 107 96 - 110 [facility] mEq/L [facility] CO2 19 (L) 24 - 30 [facility] mEq/L [facility] Total Alkaline 74 38 - 126 [facility] Phosphatase U/L [facility] Bilirubin, Total 0.5 0.2 - 1.3 [facility] mg/dl [facility] AST 26 8 - 50 U/L [facility] ALT 30 15 - 75 [facility] U/L [facility] Albumin 4.3 3.0 - 5.5 [facility] g/dl [facility] Total Protein 8.2 6.0 - 8.5 [facility] g/dl [facility] Creatinine 1.0 0.7 - 1.5 [facility] mg/dl [facility] BUN 15 10 - 26 [facility] mg/dl [facility] Calcium 9.2 8.5 - 10.5 [facility] mg/dl [facility] Calculated 9.3 8.5 - 10.5 [facility] Calcium mg/dl [facility] Glucose, Serum 92 70 - 110 [facility] mg/dl [facility] Albumin/Globulin 1.1 [facility] Ratio [facility] Specimen Anatomical Collection Method Collection Time Receive d Time (Source) Location / / Volume Laterality 07/27/1999 11:17 07/27/1999 EDT 11:32 EDT Jensen Parrish MD CHEMISTRY & BLOOD GAS ORDERA BLES Performing Organization Address City/State/ZIP Code Phon e Number [facility] [address] [place] [address] SERVICES [facility] [address] [place] [address] (ABNORMAL) HEMAGRAM & DIFF (07/27/1999 11:17 EDT) Component Value Ref Test Analysis Performed At [facility] gist Range Method Time Signature WBC 5.36 4.0 - BE[facility] 12.4 [facility] K/cmm RBC 4.92 3.86 - [facility] 5.04 [facility] M/cmm Hemoglobin 11.7 11.6 - BE[facility] 15.2 [facility] gm/dl HCT 35.6 34.9 - [facility] 44.4 % [facility] MCV 72 (L) 81 - 98 [facility] fl [facility] MCH 23.9 (L) 26.7 - [facility] 33.3 pg [facility] MCHC 32.9 32.1 - [facility] 35.9 [facility] gm/dl PLT 375 (H) 141 - [facility] 320 [facility] K/cmm RDW-CV 16.4 (H) 11.7 - [facility] 14.6 % [facility] Neutrophils 72 45.5 - [facility] 79.7 % [facility] Lymphocytes 18 15.0 - [facility] 46.8 % [facility] Monocytes 3 1.8 - [facility] 12.0 % [facility] Eosinophils 4 0.6 - [facility] 6.9 % [facility] Basophils 3 (H) 0.2 - [facility] 1.4 % [facility] ABS Neutrophils 3.87 2.20 - [facility] 8.85 [facility] K/cmm ABS Lymphs 0.96 (L) 1.09 - [facility] 3.30 [facility] K/cmm ABS Monocytes 0.16 0.1 - BE[facility] 0.8 [facility] K/cmm ABS Eosinophils 0.21 0.03 - BE[facility] 0.61 [facility] K/cmm ABS Basophils 0.16 (H) 0.01 - [facility] 0.11 [facility] K/cmm RBC Morphology 1+ Anisocytosis [facility] 1+ Ovalocytes [facility] Type of Diff: Manual [facility] Specimen Anatomical Collection Method Collection Time Receive d Time (Source) Location / / Volume Laterality 07/27/1999 11:17 07/27/1999 EDT 11:32 EDT Jensen Parrish MD HISTORICAL LAB FOR SQ LOAD Performing Organization Address City/[facility]/ZIP Code Phon e Number [facility] [address] [place] [address] SERVICES [facility] [address] [place] [address] AFP TUMOR MARKER (07/27/1999 11:17 EDT) athologist Signature AFP-Tumor 5 IU/ml [facility] Comment: False positives are possible in pregnanc y Reference value is less than 8 in 97% of healthy subjects. Assayed utilizing [employer] chemiluminescent technology. Values obtained by using different assay methods cannot be used interchangeably. Specimen Anatomical Collection Method Collection Time Receive d Time (Source) Location / / Volume Laterality 07/27/1999 11:17 07/27/1999 EDT 11:32 EDT Jensen Parrish MD CHEMISTRY & BLOOD GAS ORDERA BLES Performing Organization Address City/[facility]/ZIP Code Phon e Number [facility] [address] [place] [address] SERVICES [facility] [address] [place] [address] TESTS ADDED BY PHONE (07/27/1999 11:17 EDT) athologist Signature Tests to be HCG [facility] added LAB Diagnosis Code 070.54 [facility] Specimen Anatomical Collection Method Collection Time Receive d Time (Source) Location / / Volume Laterality 07/27/1999 11:17 07/27/1999 EDT 11:32 EDT Jensen Parrish MD CHEMISTRY & BLOOD GAS ORDERA BLES Performing Organization Address City/State/ZIP Code Phon e Number [facility] [address] [place] [address] SERVICES [facility] [address] [place] [address] CHEST PA AND LATERAL (07/27/1999 10:50 EDT) Anatomical Region Laterality Modality Other Specimen (Source) Anatomical Collection Method Collection Time Re ceived Time Location / / Volume Laterality 07/27/1999 10:50 EDT Impressions 01/03/2009 14:02 EST IMPRESSION: #1: No significant abnormality. D: 07-31-99 T: 08-01-99 /am Narrative 01/03/2009 14:02 EST H/O SMOKING, WHEEZE RT LUNG R/O DISEASE 600 PA AND LATERAL CHEST: HISTORY: Smoker with wheezing, right erin g. No prior studies for comparison. The lungs are clear and there is no evid ence of pleural fluid. The cardiomediastinal silhouette and pulmona ry vascularity are normal. The bones are remarakle for scoliosis an d degenerative changes in the thoracic spine. Procedure Note Simon Escobar MD - 01/03/2009Formatti ng of this note might be different from the original. H/O SMOKING, WHEEZE RT LUNG R/O DISEASE 6--00 PA AND LATERAL CHEST: HISTORY: Smoker with wheezing, right erin g. No prior studies for comparison. The lungs are clear and there is no evid ence of pleural fluid. The cardiomediastinal silhouette and pulmona ry vascularity are normal. The bones are remarakle for scoliosis an d degenerative changes in the thoracic spine. IMPRESSION IMPRESSION: #1: No significant abnormality. D: 07-31-99 T: 08-01-99 /am Jensen Parrish MD IMG DIAGNOSTIC IMAGING ORDER RITO documented in this encounter Visit Diagnoses Not on filedocumented in this encounter
[2022-01-11] MEDS: Metoclopramide 10 MG/2 ML VIAL IVP (03:39)
[2022-01-11] MEDS: Normal Saline - Diluent 50 ML VIAL IJ (03:53)
[2022-01-11] MEDS: Omnipaque 350 MG/ML 100 ML BTL IJ (03:53)
[2022-01-11] MEDS: MORPHine 4 MG/ML SYR IVP (03:59)
[2022-01-11 04:41] LABS: Source Nasal/Nares
[2022-01-11 04:47] LABS: Bilirubin Negative (Negative); Blood Negative (Negative); Clarity Clear (Clear); Glucose Negative (Negative); Ketones Negative (Negative); Leukocyte Esterase Negative (Negative); Nitrite Negative (Negative); Urobilinogen 0.2 EU/dL (Up TO 0.2); pH 6.5 (5-8)
--- NOTE | 2022-01-11 04:47 | DI.VRAD_ITS ---
PROCEDURE INFORMATION: Exam: CT Abdomen And Pelvis With Contrast Exam date and time: 01/11/2022 3:46 AM Age: 76 years old Clinical indication: Vomiting and other: Vomiting, epigastric burning, previous peg tube; Prior surgery; Surgery date: 6+ months TECHNIQUE: Imaging protocol: Computed tomography of the abdomen and pelvis with contrast. Radiation optimization: All CT scans at this facility use at least one of these dose optimization techniques: automated exposure control; mA and/or kV adjustment per patient size (includes targeted exams where dose is matched to clinical indication); or iterative reconstruction. Contrast material: OMNI 350; Contrast volume: 100 ml; Contrast route: INTRAVENOUS (IV); COMPARISON: CT ABDOMEN PELVIS W 05/20/2019 3:32 PM FINDINGS: Lungs: Lung bases are clear. Diaphragm: Small hiatus hernia. Liver: Normal. No mass. Gallbladder and bile ducts: Normal. No calcified stones. No ductal dilation. Pancreas: Normal. No ductal dilation. Spleen: Normal. No splenomegaly. Adrenal glands: Normal. No mass. Kidneys and ureters: Bilateral renal scarring. No stones or hydronephrosis. There is a stable 3 mm calcification in the left renal lower pole cortex. Stomach and bowel: Small bowel is normal in caliber. Colonic diverticula. Moderate-sized stool ball in the rectum. There is colonic wall thickening extending from the cecum to the distal sigmoid consistent with colitis. Appendix: Normal. Intraperitoneal space: Unremarkable. No free air. No significant fluid collection. Vasculature: Atherosclerotic aorta without aneurysm. There is moderate stenosis of the proximal right external iliac artery due to atherosclerotic plaque. Lymph nodes: Unremarkable. No enlarged lymph nodes. Urinary bladder: Unremarkable as visualized. Reproductive: Unremarkable as visualized. Bones/joints: Lumbar levoscoliosis and multilevel degenerative changes in the spine. Moderate to severe degenerative changes in the hips. Soft tissues: Small fat containing umbilical hernia. IMPRESSION: Pancolitis. Colonic diverticulosis. Small hiatus hernia. Dictated and Authenticated by: Joanna Alvarado MD. Ordering:LIN Bell MD
[2022-01-11] MEDS: Amox. 875/Clav. 125, 2 TABS/BTL 1 TAB PO (05:06)
[2022-01-11] MEDS: Ondansetron O.D.T. 4 MG TABEF, 3 TABS/BTL PO (05:07)
[2022-01-11 05:10] LABS: COVID-19 PCR Negative (Negative)
[2022-01-11 05:20] LABS: Bacteria Negative HPF (Negative); C & S Indicated? No; Crystals Negative HPF (Negative); Epithelial Cells Few HPF (Negative); Mucus Trace (Negative); RBC 0-2 HPF (0-2); WBC 0-2 HPF (0-5)
== END 2022-01-11 06:37 | disposition home or self-care (01) ==
PROVIDERS: Emergency Provider Student in an Organized Health Care Education/Training Program; PCP Family Medicine
DX: K52.9 Noninfective gastroenteritis and colitis, unspecified (principal); K42.9 Umbilical hernia without obstruction or gangrene; K51.00 Ulcerative (chronic) pancolitis without complications; K57.30 Diverticulosis of large intestine without perforation or abscess without bleeding; I10 Essential (primary) hypertension; G40.909 Epilepsy, unspecified, not intractable, without status epilepticus; D72.829 Elevated white blood cell count, unspecified; J44.1 Chronic obstructive pulmonary disease with (acute) exacerbation; Z20.822 Contact with and (suspected) exposure to COVID-19
CPT/HCPCS: 36415; 80053; 83690; 87635; 93005; 96361; 96374; 96375; 99285; 74177; 81003; 81015; 84484; 85025; 93010; J2270; J2405; J2765; J3490

== ENCOUNTER 2022-07-06 08:16 | Emergency (ER) | payer MEDICARE, SELFPAY ==
--- NOTE | 2022-07-06 08:15 | DI.CT_ITS ---
Exam(s) CT HEAD WO EXAM: CT HEAD WO CLINICAL HISTORY: headache. TECHNIQUE: Imaging Protocol: Axial computed tomography images with coronal and sagittal reformatted images were created and reviewed COMPARISON: No exams were available for comparison FINDINGS: Ventricles and Extra axial spaces: Normal in size and morphology for the patient's age. Hemorrhage: None. Cerebral parenchyma: Mild atrophy. Mild white matter changes of small vessel disease. Midline shift: None. Brainstem/Cerebellum: Normal. Calvarium: Normal. Visualized Paranasal sinuses/Mastoids: Clear. Soft Tissues: Unremarkable. IMPRESSION: No acute intracranial process. RADIATION DOSE DELIVERED: 705.54mGy.cm Total DLP DATA REPOSITORY: All CT scans at this facility are submitted to the National Radiology Data Registry (NRDR) Dose Index Registry (DIR) with the [employer] (ACR). RADIATION OPTIMIZATION: All CT scans at this facility use at least one of these dose optimization te chniques: automated exposure control; mA and/or kV adjustment per patient size (includes targeted exa ms where dose is matched to clinical indication); or iterative reconstruction.
--- NOTE | 2022-07-06 08:15 | DI.CT_ITS ---
Exam(s) CT ABDOMEN PELVIS W EXAM: CT ABDOMEN PELVIS W CLINICAL HISTORY: abd painn n/v. TECHNIQUE: Imaging Protocol: Axial computed tomography images with coronal and sagittal reformatted images were created and reviewed CONTRAST MATERIAL: Intravenous: Omnipaque 350 Contrast volume:60 ml Oral: no COMPARISON: CT CT ABDOMEN PELVIS W from 01/11/2022 FINDINGS: ABDOMEN: Lung Bases: Small hiatal hernia. Liver: Normal density. No measurable mass. Gallbladder and biliary tract: No radiodense calculus. Stable mild biliary dilatation. Common bile duct tapers in the pancreatic head.. Pancreas: Normal density, no abnormal calcifications or inflammatory process. Stable minimal dilatati on of the pancreatic duct. Spleen: Normal. Kidneys: Normal size, contour and axis. No radiodense stones or obstructive uropathy. No suspicious m asses seen. Adrenal glands: No masses seen. Abdominal Aorta: Abdominal portion non-dilated. Severe atherosclerotic changes. Soft tissues: Small fatty containing umbilical hernia. PELVIS: Bladder: No gross wall thickening. No calculi.No focal mass. Bowel: Evaluation limited due to lack of oral contrast and lack of intra-abdominal fat. No obstructi on. The colon is nearly free of stool. There is wall thickening of the sigmoid and question of the descending colon. Findings suspicious for colitis. Appendix normal.Stomach not abnormally distende d and contains some fluid. Peritoneal cavity: No ascites, collection or mesenteric inflammatory response. Bones: Degenerative changes. Scoliosis. Reproductive organs: Uterine fibroids. Lymph nodes: Unremarkable. Impression: Findings suspicious for colitis of the descending and sigmoid colon. RADIATION DOSE DELIVERED: 452.14mGy.cm Total DLP DATA REPOSITORY: All CT scans at this facility are submitted to the National Radiology Data Registry (NRDR) Dose Index Registry (DIR) with the [employer] (ACR). RADIATION OPTIMIZATION: All CT scans at this facility use at least one of these dose optimization te chniques: automated exposure control; mA and/or kV adjustment per patient size (includes targeted exa ms where dose is matched to clinical indication); or iterative reconstruction.
--- NOTE | 2022-07-06 08:15 | RT.EKG_ITS ---
APPROVED REPORT Exam: Resting ECG Reason for Exam: htn Patient Location: E HR:111 bpm ECG Measurements Heart Rate 111 AXIS CA 142 P 89 QRSd 85 QRS 49 QT 385 T 43 QTc 524 Conclusion Sinus tachycardia...rate> 99 Probable left atrial enlargement...P >50mS, <-0.10mV V1 Anteroseptal infarct, age indeterminate...Q >35mS, T neg, V1-V2 Prolonged QT interval...QTc >500mS
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
[2022-07-06 08:39] VITALS: BP 186/90; PULSE 85; RESP 20; TEMP 37.2; O2SAT 98
[2022-07-06 08:50] LABS: Abs Immature Grans 0.04 10^3/uL (0.0-0.06); Absolute Basophil Count 0.01 10^3/uL (0.0-0.2); Absolute Monocyte Count 0.63 10^3/uL (0.1-0.8); Absolute Neutrophil Count 6.58 10^3/uL (1.2-6.7); Basophils % 0.1; HCT 33.9 % (36.0-46.0); HGB 11.5 g/dL (11.2-15.7); Immature Grans % 0.5; Lymphocytes % 14.2; MCH 25.8 pg (27.0-33.0); MCHC 33.9 % (32.0-36.0); MCV 76 fL (80-95); MPV 8.8 fL (8.0-11.0); Monocytes % 7.4; Neutrophils % 77.8; Platelet Count 507 10^3/uL (130-400); RBC 4.45 10^6/uL (3.93-5.22); RDW 16.1 % (11.7-14.6); RDW-SD 44.3 fL; WBC 8.46 10^3/uL (4.4-10.8)
[2022-07-06] MEDS: Normal Saline 500 ML IV ×2 (09:01→10:49)
[2022-07-06] MEDS: MORPHine 4 MG/ML SYR 2 MG IVP (09:09)
[2022-07-06 09:10] LABS: ALT 18 U/L (14-59); AST 16 U/L (15-37); Alkaline Phosphatase 72 U/L (46-116); Anion Gap 15.2 mmol/L (3-11); BUN 12 mg/dL (7-18); Bilirubin, Total 0.3 mg/dL (0.2-1.0); CO2 21.8 mmol/L (21.0-32.0); CREATININE 1.1 mg/dL (0.55-1.02); Calcium 10.2 mg/dL (8.5-10.1); Chloride 101 mmol/L (98-107); Estimated GFR 51.43 (mL/min/1.73m2); Glucose 171 mg/dL (74-106); Lipase 52 U/L (16-77); Sodium 138 mmol/L (136-145); Total Protein 8.5 g/dL (6.4-8.2); Troponin I < 50 ng/L (<or=60)
[2022-07-06 09:11] LABS: ETHANOL BLOOD < 3.0 mg/dL (<10); Potassium 2.8 mmol/L (3.5-5.1)
[2022-07-06] MEDS: Normal Saline - Diluent 50 ML VIAL IJ (09:39)
[2022-07-06] MEDS: Omnipaque 350 MG/ML 100 ML BTL 60 ML IJ (09:40)
[2022-07-06] MEDS: Normal Saline Flush 10 ML SYR IVP (09:41)
--- NOTE | 2022-07-06 09:44 | DI.VRAD_ITS ---
PROCEDURE INFORMATION: Exam: CT Head Without Contrast Exam date and time: 07/06/2022 9:20 AM Age: 76 years old Clinical indication: Pain; Headache TECHNIQUE: Imaging protocol: Computed tomography of the head without contrast. COMPARISON: No relevant prior studies available. FINDINGS: Brain: No acute intracranial hemorrhage.. There is moderate diffuse heterogeneity of the white matter attenuation, consistent with chronic white matter ischemic changes. Moderate cerebral atrophy Cerebral ventricles: No ventriculomegaly. Paranasal sinuses: Visualized sinuses are unremarkable. No fluid levels. Mastoid air cells: Visualized mastoid air cells are well aerated. Bones/joints: Unremarkable. No acute fracture. Soft tissues: Unremarkable. IMPRESSION: No acute intracranial hemorrhage.. Dictated and Authenticated by: Jenny Umana MD. Ordering:ION Guajardo MD
[2022-07-06] MEDS: POTASSIUM CHLORIDE 20 MEQ/100 ML BAG 50 MEQ IVPB (09:52)
--- NOTE | 2022-07-06 10:19 | DI.VRAD_ITS ---
PROCEDURE INFORMATION: Exam: CT Abdomen And Pelvis With Contrast Exam date and time: 07/06/2022 9:31 AM Age: 76 years old Clinical indication: Other: Abd pain n/v.No history of trauma or recent surgery is provided. TECHNIQUE: Imaging protocol: Computed tomography of the abdomen and pelvis with contrast. 1041image(s) are provided. Contrast material: OMNIAPQUE 350; Contrast volume: 60 ml; Contrast route: INTRAVENOUS (IV); Other technique: Axial images are available with sagittal and coronal reconstruction views. Automated dose exposure control is utilized. The DLP is 452.0. COMPARISON: CT ABDOMEN PELVIS W 01/11/2022 3:46 AM FINDINGS: Lungs: No lobar consolidation is appreciated. There is some mild lung base chronic air trapping appearance overall. Liver: There appears to be some mild hepatic steatosis similar overall. There is some subtle periportal tracking appearance similar overall. Gallbladder and bile ducts: There is some borderline prominence about the common bile duct measuring approximately 9.5 mm with no radiopaque obstructive calculus at this site currently appreciated.Distal most, ampullary level evaluation is limited. Pancreas: There is similar prominence of the pancreatic duct with no interval stranding or calcific change currently appreciated. Spleen: Unremarkable. Adrenal glands: Unremarkable. Kidneys and ureters: There is some chronic lobulated renal contour and cortical thinning appearance. No interval radiopaque obstructive renal calculus or hydronephrosis is appreciated. Stomach and bowel: There is a small sliding-type hiatal hernia demonstrated with gastroesophageal fold thickening. Stomach appears fluid filled and slightly distended along with the duodenal C-loop. Some aspects of the colon are undistended. This may also be peristaltic related.There is abundant stool present limiting mucosal detail evaluation. The bowel gas pattern appears nonobstructive. There is diverticulosis related change present similar overall. There is some slight supraumbilical lipomatous eventration similar with no interval bowel or fluid currently appreciated. There appears to be some overall wall thickening of the colon. Appendix: There is an unremarkable overall appearance of the appendix level with no adjacent fluid currently appreciated. Intraperitoneal space: There is some slight mesenteric as well as omental stranding. No definite layering free air or free fluid collections are appreciated. Vasculature: There are extremely dense atherosclerotic aortic predominant calcifications with similar tortuous appearance. No interval saccular aneurysmal dilatation or intimal irregularity is currently appreciated with aortic branch vessel enhancement contrast demonstrated although contrast bolus somewhat limited. Distal small vascular evaluation is limited. There are extremely dense atherosclerotic calcific and noncalcified changes of the iliac vessels similar. Lymph nodes: There are subcentimeter predominant para-aortic and mesenteric lymph nodes overall present. Urinary bladder: The bladder is incompletely fluid filled for evaluation which may exagerate the wall thickness. This can also be seen with post inflammation sequela. Reproductive: There is some heterogeneous lobulated appearance of the uterus similar overall. Bones/joints: Osseous alignment is maintained.No interval displaced fracture or dislocation is appreciated.There is slightly decreased bone mineralization overall. There is some chronic advanced degeneration of the hips right more so than left. Some osteochondrosis could also present in this fashion. There is some chronic multilevel disc space narrowing and degeneration overall throughout the lumbar spine. Soft tissues: No radiopaque foreign body or subcutaneous emphysema is appreciated. There appear to be some chronic degenerative appearing changes about the included portions of the wrist. There appears to be some slight subcutaneous edematous appearance overall. Other findings: No other significant interval changes are appreciated. IMPRESSION: 1. There is an inflamed and diffuse colitis appearance demonstrated overall with wall thickening. This appears most pronounced of the rectosigmoid level with apposition of multiple bowel loops. No layering free air or free fluid collections are currently appreciated. 2. The stomach is fluid filled and distended with some hiatal hernia type appearance. There also appears to be some chronic rugal fold mucosal thickening including of the C-loop. Consider EGD. Dictated and Authenticated by: John Hester MD. Ordering:ION Guajardo MD
[2022-07-06] MEDS: oxyCODONE 5 MG TAB PO (10:49)
[2022-07-06] MEDS: Mylanta Suspension 30 ML CUP PO (10:49)
[2022-07-06] MEDS: Potassium Chloride Liquid 20 MEQ PKT 40 MEQ PO (10:49)
[2022-07-06] MEDS: Famotidine 20 MG TAB 40 MG PO (10:50)
[2022-07-06] MEDS: Metoprolol CR 50 MG TABCR PO (10:50)
[2022-07-06 11:00] LABS: Bilirubin Negative (Negative); Blood Negative (Negative); Clarity Clear (Clear); Glucose Negative (Negative); Ketones Negative (Negative); Leukocyte Esterase Negative (Negative); Nitrite Negative (Negative); Urobilinogen 0.2 mg/dL (Up to 0.2)
[2022-07-06 11:11] LABS: Bacteria Negative HPF (Negative); Crystals Negative HPF (Negative); Epithelial Cells Moderate HPF (Negative)
[2022-07-06 11:12] LABS: C & S Indicated? No; Casts 3-5 Hyaline LPF (Negative); Mucus Negative (Negative)
[2022-07-06 12:14] LABS: Anion Gap 10.7 mmol/L (3-11); BUN 10 mg/dL (7-18); CO2 22.3 mmol/L (21.0-32.0); CREATININE 0.9 mg/dL (0.55-1.02); Calcium 8.9 mg/dL (8.5-10.1); Chloride 105 mmol/L (98-107); Estimated GFR 65.44 (mL/min/1.73m2); Glucose 122 mg/dL (74-106); Potassium 3.5 mmol/L (3.5-5.1); Sodium 138 mmol/L (136-145)
--- NOTE | 2022-07-06 12:56 | NUR.NOTE ---
Nursing Note: Referral faxed to PCP for colitis, hypokalemia/later this week.
[2022-07-06] MEDS: Ondansetron O.D.T. 4 MG TABEF, 3 TABS/BTL PO (13:07)
--- NOTE | 2022-07-08 10:19 | NUR.NOTE ---
Nursing Note: Accessed chart to determine orders for EKG and to determine whether or not one needs to be cancelled.
== END 2022-07-06 13:07 | disposition home or self-care (01) ==
PROVIDERS: Emergency Provider Nurse Practitioner Family; PCP Nurse Practitioner
DX: I10 Essential (primary) hypertension (principal); E87.6 Hypokalemia; K52.9 Noninfective gastroenteritis and colitis, unspecified; R11.2 Nausea with vomiting, unspecified; R51.9 Headache, unspecified; Z79.899 Other long term (current) drug therapy
CPT/HCPCS: 80048; 80053; 83690; 93005; 96365; 96366; 96368; 96375; 99285; 70450; 74177; 80320; 81003; 81015; 84484; 85025; 93010; 99284; J0131; J2270; J3480; J3490

== ENCOUNTER 2022-10-04 10:24 | Emergency (ER) | payer MEDICARE, SELFPAY ==
[2022-10-04 10:25] VITALS: BP 174/88; PULSE 113; RESP 20; TEMP 36.6; O2SAT 100
--- NOTE | 2022-10-04 10:41 | W.ED.GENAD ---
Discharge Plan Disposition Patient Disposition: Home Discharge Details Clinical Impression: Nausea vomiting and diarrhea, Narcotic withdrawal, Chronic pain, Anemia Primary Care Provider: Carla Park ED Provider: Bennett Flores Home Meds and New Rx's Prescriptions: Continued metoprolol succinate [Toprol XL] 50 mg tablet extended release 24 hr 50 mg PO DAILY Qty: 90 3RF naloxone [Narcan] 4 mg/actuation spray,non-aerosol 4 mg NS DAILY PRN (Reason: opioid overdose) Qty: 1 1RF sennosides-docusate sodium [Senna with Docusate Sodium] 8.6-50 mg tablet 1 - 2 tab-cap PO QHS PRN (Reason: constipation) Qty: 30 1RF Rx Instructions: Opioid induced constipation oxycodone 5 mg tablet 5 mg PO TID MDD 15mg PRN (Reason: pain) Qty: 84 0RF docusate sodium 100 mg capsule 100 mg PO BID Qty: 180 3RF ascorbic acid-ascorbate sodium 500 mg wafer 1 wafer PO DAILY ropinirole 0.5 mg tablet 0.5 mg PO QHS Rx Instructions: administer 1-3 hours before bedtime fluoxetine 20 mg capsule 20 mg PO DAILY Qty: 90 3RF albuterol sulfate 90 mcg/actuation HFA aerosol inhaler 1 - 2 inh INHALATION Q4H PRN Patient Comments: INHALE 1 TO 2 PUFFS EVERY 4 TO 6 HOURS NEEDED ferrous gluconate 236 mg (27 mg iron) Tablet 236 mg PO DAILY Discontinued famotidine 40 mg tablet 40 mg PO DAILY Qty: 90 3RF Patient Comments: does not take Discharge Instructions Instructions: Acute Nausea and Vomiting (ED), Anemia (ED) Additional Instructions: It is recommended at this time that you resume your medications but I would hold off on any oral laxatives as they may make your diarrhea return. It is possible that some of your symptoms are due to missing her medications so please take your medications as prescribed. You have been given a limited supply of Zofran to take for further nausea or vomiting. Please take as directed and follow-up with your primary care provider for reassessment along with recheck of your anemia. Refer to return the emergency department for any new or significant worsening symptoms. Referrals: Carla Park NP [Primary Care Provider] - 1 week Discharge Data Discharge Date/Time-TO BE ENTERED AT DEPARTURE: 10/04/22 14:13 Medical Decision Making Patient presenting the emergency department for chief complaint of nausea vomiting diarrhea. Patient states this started last night. Since then she has not been able to take any of her medications and has some muscular spasms. Patient denies any fever chills, chest pain hematochezia or other symptoms. She does state this is similar to what she has had in the past which of note I did take care of her with similar symptoms in June. At that time patient had electrolyte abnormalities and colitis. Will start with labs and hold off on CT imaging given that today patient has diffuse nonfocal abdominal tenderness, patient just starting symptoms last 24 hours and I feel some of her symptoms are secondary to anxiety and not having her normal medications which are some opiates. Will continue fluid bolus started by EMS and give Reglan and small dose of fentanyl given that patient has other allergies that she states are more severe reactions. Reviewed patient's labs and patient does have a microcytic anemia which has been noted in the past hemoglobin is 9.5 so I do not feel this is emergent especially given the patient denies any bloody emesis or diarrhea. CMP does show slightly elevated anion gap of 14.2, glucose of 187, low AST ALT otherwise all electrolytes are within normal range, normal lipase. Urinalysis does show some trace blood otherwise no signs of infection noted. Patient did inform nursing staff that fentanyl had not done much. Nausea was slightly improved. Did give patient her normal prescribed medications along with a small dose of hydromorphone. Patient reassessed and now states near full resolution of symptoms. Reassessed abdomen and patient has no further abdominal pain discomfort or tenderness and she is requesting to go home. I question if patient was somewhat having withdrawal symptoms due to missing her medications. Discussed this with patient and will send patient home with Gabriela otherwise she was encouraged to continue to monitor symptoms and return for any new or worsening of condition otherwise take her medications as prescribed. After discussion of diagnosis and plan of care patient has no further needs, questions, or concerns and states clear understanding to return to the emergency department for any worsening symptoms. This documentation was generated using [employer] system, please disregard any oddities of phrase or misspellings. Lab Data Lab results reviewed: Yes I reviewed the patient's lab results. HPI General Mode of arrival: EMS. Date/Time Provider Initiated Documentation: 10/04/22 10:26. Limitations to Documentation: no limitations. Information obtained by: patient and RN notes reviewed. History of Present Illness 76 year old F presents to the emergency department with the chief complaint of Nausea vomiting diarrhea, described as moderate and similar to prior episodes, Patient started experiencing this day(s) (1) and it has been constant. No relieving factors improve symptom(s), No exacerbating factors reported . Patient notes no other symptoms.. Patient did receive the following treatments prior to arrival, other (Zofran and fluids per EMS) Related Data Home Medications Medication Instructions Recorded Confirmed ascorbic acid-ascorbate sodium 1 wafer PO DAILY 07/12/20 10/04/22 (vitamin C) 500 mg oral wafer ropinirole 0.5 mg tablet 0.5 mg PO QHS 07/12/20 10/04/22 albuterol sulfate 90 mcg/actuation 1 - 2 inh inhalation Q4H PRN 01/16/21 10/04/22 aerosol inhaler ferrous gluconate 236 mg (27 mg 236 mg PO DAILY 01/16/21 10/04/22 iron) tablet naloxone 4 mg/actuation nasal 4 mg NS DAILY PRN opioid overdose 07/10/22 10/04/22 spray (Narcan) #1 ea sennosides 8.6 mg-docusate sodium 1 - 2 tab-cap PO QHS PRN 07/10/22 10/04/22 50 mg tablet (Senna with Docusate constipation #30 tabs Sodium) metoprolol succinate 50 mg 50 mg PO DAILY #90 tabs 07/25/22 10/04/22 tablet,extended release 24 hr (Toprol XL) fluoxetine 20 mg capsule 20 mg PO DAILY #90 caps 08/29/22 10/04/22 docusate sodium 100 mg capsule 100 mg PO BID #180 caps 09/17/22 10/04/22 oxycodone 5 mg tablet 5 mg PO TID PRN pain #84 tabs 09/17/22 10/04/22 Previous Rx's Medication Instructions Recorded naloxone 4 mg/actuation nasal 4 mg NS DAILY PRN opioid overdose 07/10/22 spray (Narcan) #1 ea sennosides 8.6 mg-docusate sodium 1 - 2 tab-cap PO QHS PRN 07/10/22 50 mg tablet (Senna with Docusate constipation #30 tabs Sodium) metoprolol succinate 50 mg 50 mg PO DAILY #90 tabs 07/25/22 tablet,extended release 24 hr (Toprol XL) fluoxetine 20 mg capsule 20 mg PO DAILY #90 caps 08/29/22 docusate sodium 100 mg capsule 100 mg PO BID #180 caps 09/17/22 oxycodone 5 mg tablet 5 mg PO TID PRN pain #84 tabs 09/17/22 Allergies Allergy/AdvReac Type Severity Reaction Status Date / Time Sulfa (Sulfonamide Allergy Severe Anaphylaxsi Verified 10/04/22 10:30 Antibiotics) s meperidine HCl [From Demerol] Allergy Intermediate Contraindicated, Verified 10/04/22 10:30 seizures phenytoin sodium Allergy Intermediate Contraindicated, Verified 10/04/22 10:30 [From Dilantin] seizures phenytoin sodium extended Allergy Intermediate Contraindicated, Verified 10/04/22 10:30 [From Dilantin] seizures amoxicillin Allergy Verified 10/04/22 10:30 diazepam [From Valium] Allergy Verified 10/04/22 10:30 hydromorphone [From Dilaudid] Allergy Verified 10/04/22 12:38 midazolam HCl [From Versed] AdvReac Intermediate Psychosis Verified 10/04/22 10:30 General Stated Complaint: Abd Prob CRISTO: 3 Review of Systems Constitutional Constitutional: Denies chills, Denies fever(s) and Reports poor appetite Cardiovascular Cardiovascular: Denies chest pain and Denies dyspnea Respiratory Respiratory: Denies cough and Denies dyspnea Gastrointestinal Gastrointestinal: Reports as per HPI, Reports abdominal pain, Denies melena, Denies change in bowel habits, Denies constipation, Reports diarrhea, Reports nausea and Reports vomiting Genitourinary Genitourinary: Denies hematuria, Denies urinary incontinence, Denies urinary hesitancy and Denies urinary urgency Integumentary/Breasts Skin/Breast: Denies rash PFSH All Active Problems (Updated 10/04/22 @ 12:57 by Bennett Flores NP) Nausea vomiting and diarrhea (Acute) Chronic pain (Chronic) Depression (Chronic) Hematemesis (Acute) Acute anemia (Acute) NSTEMI (non-ST elevated myocardial infarction) (Acute) Current smoker (Acute) Narcotic withdrawal (Acute) Nausea (Acute) Hypertension (Acute) Anemia (Acute) Medical History Abdominal pain Acute hypokalemia Cachexia Chest pain Chronic, continuous use of opioids COPD (chronic obstructive pulmonary disease) COPD with acute exacerbation Fatigue GI bleed Helicobacter pylori gastritis Hx of drug withdrawal syndrome Late effect of pelvic fracture Loss of vision Movement disorder Multifocal pneumonia PTSD (post-traumatic stress disorder) Respiratory failure with hypoxia Seizures Temporal lobe epilepsy Vitamin D deficiency Social History Smoking/Tobacco Use Status: Current every day Quit status: has quit before Second Hand Exposure: Yes Smoking risk assessment performed?: Yes Alcohol Intake: current Alcohol Intake frequency: holidays/special occasions only Drug use: Daily Substance use type: marijuana Adopted: No Caregiver/Support person: Yes Foster care: No Household members: spouse Housing: house Number of Children: 1 number of grandchildren: 0 Communication Needs: Blind Education Level: middle school Do you need help understanding health information?: Often 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 Pets and animals: Yes Pets and animals: cat(s) and dog(s) Do you think of yourself as: straight/heterosexual Current gender identity: female What is your relationship status?: How often do you talk on the phone with friends or family?: decline to answer How often do you get together with friends or relatives?: never Do you belong to any clubs or organized social groups?: no Panel score (0-1 are the most socially isolated patients): 1 Seatbelt use: always Do you feel safe at home: Yes Do you feel safe in your relationship?: Yes Exam Const General: cooperative, anxious, frail appearing and ill appearing chronically Orientation: alert, awake and oriented x3 Resp Effort & Inspection: normal respiratory effort and able to speak in complete sentences Auscultation: clear to auscultation bilaterally Cardio Rate: regular rate Rhythm: regular rhythm Heart Sounds: S1 normal and S2 normal GI Inspection: normal to inspection Palpation: soft, no hepatosplenomegaly, not firm, no guarding, no masses, no pulsatile masses, not rigid, no splenomegaly and tender (Diffuse nonfocal) Auscultation: normal bowel sounds Back/Spine/Pelvis Back: no CVA tenderness Neuro General: patient alert, patient awake, patient oriented x3, gait normal and moves all extremities Course Vital Signs Vital signs: Vital Signs Temperature 36.6 C 10/04/22 10:25 Pulse 113 H 10/04/22 10:25 Respiratory Rate 20 10/04/22 10:25 Blood Pressure 174/88 H 10/04/22 10:25 Pulse Oximetry 100 10/04/22 10:25 Temperature 36.6 C 10/04/22 10:25 Temperature Source Oral 10/04/22 10:25 Pulse 113 H 10/04/22 10:25 Respiratory Rate 20 10/04/22 10:25 Blood Pressure 174/88 H 10/04/22 10:25 Blood Pressure Position Sitting 10/04/22 10:25 Pulse Oximetry 100 10/04/22 10:25 Oxygen Delivery Method Room Air 10/04/22 10:25 Oxygen Flow Rate 0 10/04/22 10:25 Pain Level 8 10/04/22 10:25
[2022-10-04 10:45] LABS: Abs Immature Grans 0.01 10^3/uL (0.0-0.06); Absolute Basophil Count 0.02 10^3/uL (0.0-0.2); Absolute Lymphocyte Count 0.56 10^3/uL (1.2-3.4); Absolute Monocyte Count 0.14 10^3/uL (0.1-0.8); Absolute Neutrophil Count 7.03 10^3/uL (1.2-6.7); Basophils % 0.3; HCT 29.9 % (36.0-46.0); HGB 9.5 g/dL (11.2-15.7); Immature Grans % 0.1; Lymphocytes % 7.2; MCH 23.9 pg (27.0-33.0); MCHC 31.8 % (32.0-36.0); MCV 75 fL (80-95); Monocytes % 1.8; Neutrophils % 90.6; Platelet Count 445 10^3/uL (130-400); RBC 3.98 10^6/uL (3.93-5.22); RDW 15.6 % (11.7-14.6); RDW-SD 42.9 fL; WBC 7.76 10^3/uL (4.4-10.8)
[2022-10-04] MEDS: Metoclopramide 10 MG/2 ML VIAL 5 MG IVP (10:46)
[2022-10-04] MEDS: fentaNYL 100 MCG/2 ML VIAL 25 MCG IVP (10:46)
[2022-10-04 11:03] LABS: ALT 12 U/L (14-59); AST 14 U/L (15-37); Albumin 4.1 g/dL (3.4-5.0); Alkaline Phosphatase 78 U/L (46-116); Anion Gap 14.2 mmol/L (3-11); BUN 18 mg/dL (7-18); Bilirubin, Total 0.2 mg/dL (0.2-1.0); CO2 21.8 mmol/L (21.0-32.0); Calcium 9.3 mg/dL (8.5-10.1); Chloride 105 mmol/L (98-107); Estimated GFR 57.66 (mL/min/1.73m2); Glucose 187 mg/dL (74-106); Lipase 47 U/L (16-77); Magnesium 1.9 mg/dL (1.8-2.4); Potassium 3.5 mmol/L (3.5-5.1); Sodium 141 mmol/L (136-145); Total Protein 8.1 g/dL (6.4-8.2); Troponin I < 50 ng/L (<or=60)
[2022-10-04 11:10] VITALS: BP 159/101; PULSE 111; RESP 18; O2SAT 99
[2022-10-04] MEDS: oxyCODONE 5 MG TAB PO (11:29)
[2022-10-04 11:30] LABS: Bilirubin Small (Negative); Blood Trace-intact (Negative); Clarity Clear (Clear); Glucose Negative (Negative); Ketones 40 mg/dL (Negative); Leukocyte Esterase Negative (Negative); Nitrite Negative (Negative); Specific Gravity 1.025 (1.005-1.025); Urobilinogen 0.2 mg/dL (Up to 0.2); pH 6.5 (5-8)
[2022-10-04] MEDS: rOPINIRole 0.5 MG TAB PO (11:35)
[2022-10-04 11:39] LABS: Bacteria Negative HPF (Negative); C & S Indicated? No; Casts Negative LPF (Negative); Crystals Negative HPF (Negative); Epithelial Cells Rare HPF (Negative); Mucus Trace (Negative); RBC 0-2 HPF (0-2); WBC Negative HPF (0-5)
[2022-10-04] MEDS: HYDROmorphone 2 MG/ML SYR 0.5 MG IVP (12:00)
[2022-10-04 12:35] VITALS: BP 163/74; PULSE 103; RESP 16; O2SAT 100
--- NOTE | 2022-10-04 13:01 | NUR.NOTE ---
Nursing Note: PT needs follow up next week with PCP to recheck belly pain. Amalia, ED
[2022-10-04 13:05] VITALS: BP 163/74; PULSE 103; RESP 16; O2SAT 100
[2022-10-04] MEDS: Ondansetron O.D.T. 4 MG TABEF, 3 TABS/BTL PO (13:06)
== END 2022-10-04 14:13 | disposition home or self-care (01) ==
PROVIDERS: Emergency Provider Nurse Practitioner Family; PCP Nurse Practitioner
DX: R11.2 Nausea with vomiting, unspecified (principal); R19.7 Diarrhea, unspecified; D64.9 Anemia, unspecified; I25.2 Old myocardial infarction; I10 Essential (primary) hypertension; F17.210 Nicotine dependence, cigarettes, uncomplicated
CPT/HCPCS: 80053; 83690; 96374; 96375; 99283; 81003; 81015; 83735; 84484; 85025; J0131; J1170; J2765; J3010

== ENCOUNTER 2022-10-16 12:48 | Outpatient (REF) | payer MEDICARE, SELFPAY ==
[2022-10-16 17:33] LABS: Abs Immature Grans 0.03 10^3/uL (0.0-0.06); Absolute Basophil Count 0.01 10^3/uL (0.0-0.2); Absolute Eosinophil Count 0.14 10^3/uL (0.0-0.7); Absolute Lymphocyte Count 1.32 10^3/uL (1.2-3.4); Absolute Monocyte Count 0.61 10^3/uL (0.1-0.8); Absolute Neutrophil Count 4.42 10^3/uL (1.2-6.7); Basophils % 0.2; Eosinophils % 2.1; HCT 26.7 % (36.0-46.0); HGB 8.3 g/dL (11.2-15.7); Immature Grans % 0.5; Lymphocytes % 20.2; MCH 23.9 pg (27.0-33.0); MCHC 31.1 % (32.0-36.0); MCV 77 fL (80-95); MPV 9.4 fL (8.0-11.0); Monocytes % 9.3; Neutrophils % 67.7; Platelet Count 496 10^3/uL (130-400); RBC 3.48 10^6/uL (3.93-5.22); RDW 16.4 % (11.7-14.6); RDW-SD 45.6 fL; WBC 6.53 10^3/uL (4.4-10.8)
[2022-10-16 18:20] LABS: Total Iron Binding Capacity 315 ug/dL (250-450)
[2022-10-16 19:10] LABS: Ferritin 8 ng/mL (8-252); TSH (W/Ref FT4) 0.58 uIU/mL (0.36-3.74); Vitamin B12 274 pg/mL (193-986)
== END 2022-10-16 12:49 | disposition home or self-care (01) ==
LOC: LBN 12:48
PROVIDERS: PCP Nurse Practitioner; Visit Provider Nurse Practitioner
DX: D64.9 Anemia, unspecified (principal); G89.29 Other chronic pain; I10 Essential (primary) hypertension; F32.89 Other specified depressive episodes; Z79.899 Other long term (current) drug therapy
CPT/HCPCS: 82607; 82728; 83550; 84443; 85025

== ENCOUNTER 2023-04-08 09:27 | Emergency (ER) | payer MEDICARE, SELFPAY ==
[2023-04-08 09:38] VITALS: BP 182/72; PULSE 78; RESP 18; TEMP 35.9; O2SAT 94
[2023-04-08 10:18] VITALS: RESP 18
[2023-04-08 10:19] LABS: Abs Immature Grans 0.02 10^3/uL (0.0-0.06); Absolute Basophil Count 0.04 10^3/uL (0.0-0.2); Absolute Eosinophil Count 0.32 10^3/uL (0.0-0.7); Absolute Lymphocyte Count 1.39 10^3/uL (1.2-3.4); Absolute Monocyte Count 0.47 10^3/uL (0.1-0.8); Absolute Neutrophil Count 5.32 10^3/uL (1.2-6.7); Basophils % 0.5; Eosinophils % 4.2; HCT 26.8 % (36.0-46.0); HGB 7.8 g/dL (11.2-15.7); Immature Grans % 0.3; Lymphocytes % 18.4; MCH 19.1 pg (27.0-33.0); MCHC 29.1 % (32.0-36.0); MCV 66 fL (80-95); MPV 8.8 fL (8.0-11.0); Monocytes % 6.2; Neutrophils % 70.4; Platelet Count 522 10^3/uL (130-400); RBC 4.09 10^6/uL (3.93-5.22); RDW 18.4 % (11.7-14.6); WBC 7.56 10^3/uL (4.4-10.8)
[2023-04-08 10:36] LABS: Diff Comment RBC Morph Reviewed; Hypochromasia 2+; Microcytosis 2+
[2023-04-08 10:43] LABS: Bilirubin Negative (Negative); Blood Negative (Negative); Clarity Clear (Clear); Glucose Negative (Negative); Ketones Negative (Negative); Leukocyte Esterase Negative (Negative); Nitrite Negative (Negative); Specific Gravity 1.015 (1.005-1.025); Urobilinogen 0.2 mg/dL (Up to 0.2); pH 6.5 (5-8)
[2023-04-08 10:45] LABS: ALT 13 U/L (14-59); AST 14 U/L (15-37); Albumin 3.6 g/dL (3.4-5.0); Alkaline Phosphatase 92 U/L (46-116); Anion Gap 13.2 mmol/L (3-11); BUN 14 mg/dL (7-18); Bilirubin, Total 0.2 mg/dL (0.2-1.0); CO2 20.8 mmol/L (21.0-32.0); CREATININE 0.8 mg/dL (0.55-1.02); Calcium 8.5 mg/dL (8.5-10.1); Chloride 106 mmol/L (98-107); Creatine Kinase 77 U/L (26-192); Glucose 103 mg/dL (74-106); Lipase 54 U/L (16-77); Potassium 3.6 mmol/L (3.5-5.1); Sodium 140 mmol/L (136-145); Total Protein 7.8 g/dL (6.4-8.2)
[2023-04-08 10:46] LABS: C-Reactive Protein < 0.50 mg/dL (<or=0.5)
[2023-04-08 11:03] LABS: FREE T4 0.86 ng/dL (0.76-1.46)
--- NOTE | 2023-04-08 11:25 | ED.GENADUL_ITS ---
HPI General Date/Time Provider Initiated Documentation: 04/08/23 09:37 . HPI Narrative: 77-year-old female presents with reports of pain and swelling to bilateral lower extremities. Denies any fever or chills. States they constantly burn. Denies any known exposures, has tried some lotions. Denies any new medications. Denies any chest pain, calf pain, shortness of breath. Related Data Home Medications Medication Instructions Recorded Confirmed ascorbic acid-ascorbate sodium 1 wafer PO DAILY 07/12/20 04/08/23 (vitamin C) 500 mg oral wafer ropinirole 0.5 mg tablet 0.5 mg PO QHS 07/12/20 04/08/23 ferrous gluconate 236 mg (27 mg 236 mg PO DAILY 01/16/21 04/08/23 iron) tablet naloxone 4 mg/actuation nasal 4 mg NS DAILY PRN opioid overdose 07/10/22 04/08/23 spray (Narcan) #1 ea sennosides 8.6 mg-docusate sodium 1 - 2 tab-cap (1 - 2 x 8.6-50 mg) 07/10/22 04/08/23 50 mg tablet (Senna with Docusate PO QHS PRN constipation #30 tabs Sodium) metoprolol succinate 50 mg 50 mg PO DAILY #90 tabs 07/25/22 04/08/23 tablet,extended release 24 hr (Toprol XL) fluoxetine 20 mg capsule 20 mg PO DAILY #90 caps 08/29/22 04/08/23 docusate sodium 100 mg capsule 100 mg PO BID #180 caps 09/17/22 04/08/23 carbidopa 25 mg-levodopa 250 mg 1 tab PO BID 01/01/23 04/08/23 tablet albuterol sulfate 90 mcg/actuation 1 - 2 inh inhalation Q4H PRN 03/19/23 04/08/23 aerosol inhaler shortness of breath or wheezing #8.5 grams prednisone 20 mg tablet 40 mg (2 x 20 mg) PO DAILY #10 tabs 04/08/23 Previous Rx's Medication Instructions Recorded naloxone 4 mg/actuation nasal 4 mg NS DAILY PRN opioid overdose 07/10/22 spray (Narcan) #1 ea sennosides 8.6 mg-docusate sodium 1 - 2 tab-cap (1 - 2 x 8.6-50 mg) 07/10/22 50 mg tablet (Senna with Docusate PO QHS PRN constipation #30 tabs Sodium) metoprolol succinate 50 mg 50 mg PO DAILY #90 tabs 07/25/22 tablet,extended release 24 hr (Toprol XL) fluoxetine 20 mg capsule 20 mg PO DAILY #90 caps 08/29/22 docusate sodium 100 mg capsule 100 mg PO BID #180 caps 09/17/22 albuterol sulfate 90 mcg/actuation 1 - 2 inh inhalation Q4H PRN 03/19/23 aerosol inhaler shortness of breath or wheezing #8.5 grams prednisone 20 mg tablet 40 mg (2 x 20 mg) PO DAILY #10 tabs 04/08/23 Allergies Allergy/AdvReac Type Severity Reaction Status Date / Time Sulfa (Sulfonamide Allergy Severe Anaphylaxsi Verified 04/08/23 09:43 Antibiotics) s meperidine HCl [From Demerol] Allergy Intermediate Contraindicated, Verified 04/08/23 09:43 seizures phenytoin sodium Allergy Intermediate Contraindicated, Verified 04/08/23 09:43 [From Dilantin] seizures phenytoin sodium extended Allergy Intermediate Contraindicated, Verified 04/08/23 09:43 [From Dilantin] seizures amoxicillin Allergy Unknown unknown Verified 04/08/23 09:43 diazepam [From Valium] Allergy Unknown unknown Verified 04/08/23 09:43 hydromorphone [From Dilaudid] Allergy Unknown unknown Verified 04/08/23 09:43 midazolam HCl [From Versed] AdvReac Intermediate Psychosis Verified 04/08/23 09:43 oxycodone AdvReac Intermediate weird and Uncoded 04/08/23 09:43 anxious feeling General Stated Complaint: GenMedical CRISTO: 3 Course Vital Signs Vital signs: Vital Signs Temperature 35.9 C L 04/08/23 09:38 Pulse 78 04/08/23 09:38 Respiratory Rate 18 04/08/23 09:38 Blood Pressure 182/72 H 04/08/23 09:38 Pulse Oximetry 94 04/08/23 09:38 Temperature 35.9 C L 04/08/23 09:38 Temperature Source Temporal Artery Scan 04/08/23 09:38 Pulse 78 04/08/23 09:38 Respiratory Rate 18 04/08/23 10:18 Respiratory Effort Normal, Non-Labored 04/08/23 10:18 Respiratory Depth Normal 04/08/23 10:18 Respiratory Pattern Normal 04/08/23 10:18 Blood Pressure 182/72 H 04/08/23 09:38 Blood Pressure Position Sitting 04/08/23 09:38 Pulse Oximetry 94 04/08/23 09:38 Oxygen Delivery Method Room Air 04/08/23 09:38 Oxygen Flow Rate 0 04/08/23 09:38 Lab/Test Results Lab/Test Results: Laboratory Tests Range/Units 04/08/23 04/08/23 10:00 10:13 WBC (4.4-10.8) 10^3/uL 7.56 RBC (3.93-5.22) 10^6/uL 4.09 Hgb (11.2-15.7) g/dL 7.8 L Hct (36.0-46.0) % 26.8 L MCV (80-95) fL 66 L MCH (27.0-33.0) pg 19.1 L MCHC (32.0-36.0) % 29.1 L RDW (11.7-14.6) % 18.4 H Plt Count (130-400) 10^3/uL 522 H MPV (8.0-11.0) fL 8.8 Immature Gran % 0.3 Neutrophils % 70.4 Lymphocytes % 18.4 Monocytes % 6.2 Eosinophils % 4.2 Basophils % 0.5 Nucleated RBC % (0.0-0.3) % 0.0 Absolute Neutrophils (1.2-6.7) 10^3/uL 5.32 Absolute Lymphocytes (1.2-3.4) 10^3/uL 1.39 Absolute Monocytes (0.1-0.8) 10^3/uL 0.47 Absolute Eosinophils (0.0-0.7) 10^3/uL 0.32 Absolute Basophils (0.0-0.2) 10^3/uL 0.04 RBC Morphology See Below Hypochromasia 2+ Microcytosis 2+ Sodium (136-145) mmol/L 140 Potassium (3.5-5.1) mmol/L 3.6 Chloride (98-107) mmol/L 106 Carbon Dioxide (21.0-32.0) mmol/L 20.8 L Anion Gap (3-11) mmol/L 13.2 H BUN (7-18) mg/dL 14 Creatinine (0.55-1.02) mg/dL 0.8 Est GFR (CKD-EPI 2020) (mL/min/1.73m2) 74.90 Glucose (74-106) mg/dL 103 Calcium (8.5-10.1) mg/dL 8.5 Total Bilirubin (0.2-1.0) mg/dL 0.2 AST (15-37) U/L 14 L ALT (14-59) U/L 13 L Alkaline Phosphatase (46-116) U/L 92 Creatine Kinase (26-192) U/L 77 C-Reactive Protein (<or=0.5) mg/dL < 0.50 Total Protein (6.4-8.2) g/dL 7.8 Albumin (3.4-5.0) g/dL 3.6 Lipase (16-77) U/L 54 TSH (0.36-3.74) uIU/mL 0.30 L Free T4 (0.76-1.46) ng/dL 0.86 Urine Color (Yellow) Yellow Urine Clarity (Clear) Clear Urine pH (5-8) 6.5 Ur Specific [place] (1.005-1.025) 1.015 Urine Protein (Negative) mg/dL Negative Urine Ketones (Negative) mg/dL Negative Urine Blood (Negative) Negative Urine Nitrite (Negative) Negative Urine Bilirubin (Negative) Negative Urine Urobilinogen (Up to 0.2) mg/dL 0.2 Ur Leukocyte Esterase (Negative) Negative Urine Glucose (Negative) mg/dL Negative Medical Decision Making This 77-year-old female presents with a rash on bilateral lower extremities with swelling Cardiac rate rhythm regular lungs clear to auscultation bilaterally, alert and oriented x 4 States she was recently evaluated and admitted for an upper GI bleed, she denies any current bleeding at this time, she is not vomited since her admission She does report to some swelling and pain to bilateral lower extremities She denies any fever or chills. She denies any new medications in fact she stopped taking some of her medications she reports She has evidence of dry skin with cracking and excoriations to bilateral lower extremities, she is neurovascularly intact bilateral lower extremities The differentials are dyshidrotic eczema versus dry skin Will start patient on steroid for itch and patient will apply Eucerin or intensive care cream twice daily Return precautions reviewed and patient expressed understanding Quality:SDOH Health Related Social Needs: No Data to Display PFSH All Active Problems (Updated 04/08/23 @ 11:27 by MEÑO Wick) Dyshidrosis (Acute) Chronic pain (Chronic) Depression (Chronic) Hematemesis (Acute) Acute anemia (Acute) NSTEMI (non-ST elevated myocardial infarction) (Acute) Current smoker (Acute) Narcotic withdrawal (Acute) Nausea (Acute) Hypertension (Acute) Anemia (Acute) Medical History Abdominal pain Acute hypokalemia Cachexia Chest pain Chronic, continuous use of opioids COPD (chronic obstructive pulmonary disease) COPD with acute exacerbation Fatigue GI bleed Helicobacter pylori gastritis Hx of drug withdrawal syndrome Late effect of pelvic fracture Loss of vision Movement disorder Multifocal pneumonia PTSD (post-traumatic stress disorder) Respiratory failure with hypoxia Seizures Temporal lobe epilepsy Vitamin D deficiency Social History Smoking/Tobacco Use Status: Current-Occasional Quit status: has quit before Second Hand Exposure: Yes Smoking risk assessment performed?: Yes Alcohol Intake: never Drug use: Daily Substance use type: marijuana Adopted: No Caregiver/Support person: Yes Foster care: No Household members: spouse Housing: house Number of Children: 1 number of grandchildren: 0 Communication Needs: Blind Education Level: middle school Do you need help understanding health information?: Often 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 Discharge Plan Disposition Patient Disposition: Home Discharge Details Clinical Impression: Anemia, Dyshidrosis Primary Care Provider: Carla Park ED Provider: Francia Dunn Home Meds and New Rx's Prescriptions: New prednisone 20 mg tablet 40 mg PO DAILY Qty: 10 0RF Continued metoprolol succinate [Toprol XL] 50 mg tablet extended release 24 hr 50 mg PO DAILY Qty: 90 3RF carbidopa-levodopa 25-250 mg tablet 1 tab PO BID Patient Comments: pt states medication prescribed from this office but no record naloxone [Narcan] 4 mg/actuation spray,non-aerosol 4 mg NS DAILY PRN (Reason: opioid overdose) Qty: 1 1RF sennosides-docusate sodium [Senna with Docusate Sodium] 8.6-50 mg tablet 1 - 2 tab-cap PO QHS PRN (Reason: constipation) Qty: 30 1RF Rx Instructions: Opioid induced constipation docusate sodium 100 mg capsule 100 mg PO BID Qty: 180 3RF ascorbic acid-ascorbate sodium 500 mg wafer 1 wafer PO DAILY ropinirole 0.5 mg tablet 0.5 mg PO QHS Rx Instructions: administer 1-3 hours before bedtime fluoxetine 20 mg capsule 20 mg PO DAILY Qty: 90 3RF albuterol sulfate 90 mcg/actuation HFA aerosol inhaler 1 - 2 inh INHALATION Q4H PRN (Reason: shortness of breath or wheezing) Qty: 8.5 12RF ferrous gluconate 236 mg (27 mg iron) Tablet 236 mg PO DAILY Discharge Instructions Instructions: Anemia (ED) Additional Instructions: Follow-up with your doctor regarding anemia Apply vitamin E oil to both of your legs once daily and apply Vaseline intensive care or Eucerin to your legs twice a day Start taking the prednisone Follow-up with your doctor next week for reassessment and return earlier should you have new or worsening complaints Referrals: Carla Park NP [Primary Care Provider] - Discharge Data Discharge Date/Time-TO BE ENTERED AT DEPARTURE: 04/08/23 11:49
[2023-04-08 11:41] LABS: Iron 12 ug/dL (50-170); Total Iron Binding Capacity 332 ug/dL (250-450); Transferrin Sat 4 % (15-50)
[2023-04-08 11:43] VITALS: BP 186/83; PULSE 84; RESP 18; O2SAT 100
== END 2023-04-08 11:49 | disposition home or self-care (01) ==
PROVIDERS: Emergency Provider Physician Assistant; PCP Nurse Practitioner
DX: R21 Rash and other nonspecific skin eruption (principal); L30.1 Dyshidrosis [pompholyx]; M79.661 Pain in right lower leg; M79.662 Pain in left lower leg; I10 Essential (primary) hypertension; R22.43 Localized swelling, mass and lump, lower limb, bilateral; Z87.19 Personal history of other diseases of the digestive system; Z86.2 Personal history of diseases of the blood and blood-forming organs and certain disorders involving the immune mechanism
CPT/HCPCS: 80053; 82550; 83690; 99283; 81003; 83540; 83550; 84439; 84443; 85025; 86140

== ENCOUNTER 2023-04-10 15:45 | Emergency (ER) | payer MEDICARE, SELFPAY ==
[2023-04-10] VITALS (30 sets, daily range): BP systolic 164–199; BP diastolic 66–109; PULSE 89–104; RESP 13–28; TEMP 36.3; O2SAT 99
--- NOTE | 2023-04-10 15:45 | RT.EKG_ITS ---
APPROVED REPORT Exam: Resting ECG Reason for Exam: Chest pain Patient Location: E HR:90 bpm ECG Measurements Heart Rate 90 AXIS IA 166 P 78 QRSd 71 QRS 48 QT 365 T 77 QTc 447 Conclusion Sinus rhythm...normal P axis, V-rate 60- 99 Consider anteroseptal infarct...Q >30mS, dimin R, V1-V2
--- NOTE | 2023-04-10 16:15 | DI.CT_ITS ---
Exam(s) CT ABD AORTA CTA W RUNOFF EXAM: CT ABD AORTA CTA W RUNOFF CLINICAL HISTORY: claudication pain. TECHNIQUE: Imaging Protocol: Axial CT angiography was performed with multi-slice acquisition and mu lti-planar and/or 3D reconstructions. CONTRAST MATERIAL: Intravenous: Omnipaque 350 Contrast volume:structured data in ml mL Oral: yes / no COMPARISON: CT CT ABDOMEN PELVIS W from 07/06/2022 FINDINGS: Vascular Structures: Abdomen and pelvis: Celiac Gar[place]/SMA: No evidence of occlusion or significant stenosis. Renal Arteries: No evidence of occlusion. There is mild calcification in the proximal renal arteries bilaterally. Less than 50 percent stenosis is present. Aorta: No aneurysm, occlusion or significant stenosis. No dissection. Calcification is present thro ughout the abdominal aorta. Iliac Arteries: There is calcification seen in the left common, internal and external iliac arteries . There is 50 percent stenosis seen in the mid left external iliac artery. There is calcification s een throughout the right iliac artery system. There is 50 percent stenosis seen in the proximal righ t external iliac artery. (Series 6, image 225). There is also 50 percent stenosis seen in the mid r ight internal iliac artery. No occlusion is seen in either iliac artery system. Lower extremities: Right: Femoral: There are multiple areas of marked stenosis throughout the right femoral artery. There is o cclusion distally with reconstitution of the popliteal artery. Deep Femoral Artery: No evidence of occlusion or significant stenosis. Popliteal: There is no occlusion. But there is 50 percent stenosis of the popliteal artery proximall y. Knee Trifurcation: No evidence of occlusion or significant stenosis. Anterior Tibial: No evidence of occlusion or significant stenosis. Posterior Tibial: There are multiple areas of stenosis in the proximal and mid posterior tibial arter y with occlusion distally. Peroneal:There is occlusion of the distal peroneal artery. Left: Femoral: There is no occlusion. There are multiple areas of significant stenosis (approximately 50 p ercent to 70 percent) throughout the femoral artery. Deep femoral artery: No evidence of occlusion or significant stenosis. Popliteal: No evidence of occlusion. There is less than 50 percent stenosis of the proximal poplite al artery. Knee Trifurcation: No evidence of occlusion or significant stenosis. Anterior tibial: No evidence of occlusion or significant stenosis. Posterior Tibial: There is occlusion of the distal posterior tibial artery Peroneal: No evidence of occlusion or significant stenosis. Soft Tissues: Lung bases: Clear. Liver: Normal density. No measurable mass. Gallbladder and biliary tract: No radiopaque gallstones are present. The extrahepatic bile duct lauri ures up to 1.4 cm. No choledocholithiasis is seen. No pancreatic head mass is identified. Pancreas: There is mild pancreatic atrophy. No peripancreatic mass or fluid collection is seen. Spleen: Normal. Kidneys: Normal size, contour and axis. No radiodense stones or obstructive uropathy. No masses seen. Adrenal glands: No masses seen. Aorta: Please see above. Bladder: Symmetric distention, no gross wall thickening. Bowel: There is diverticulosis without acute diverticulitis. There is mild bowel wall thickening see n in the distal sigmoid colon but no pericolonic inflammatory changes are seen. This may be due to u nderdistention. There is no evidence of bowel obstruction. The appendix is unremarkable. Peritoneal cavity: No ascites, collection or mesenteric inflammatory response. No free air. Bones: Within normal limits for the patient's age. Postsurgical changes are seen in the proximal lef t tibia and both the right and left ankles. Soft tissues: There is a fat containing umbilical hernia. There is a small fat containing right ingu inal hernia. IMPRESSION: 1. On the right, there is occlusion of the distal posterior tibial and peroneal arteries. 2. On the left, there is occlusion of the posterior tibial artery. 3. Extensive atherosclerosis in the lower extremities as described above. 4. Extrahepatic bile duct measuring 1.4 cm. No evidence of a gallstone or pancreatic mass. Follow-u p as clinically appropriate. 5. Mild bowel wall thickening seen in the distal sigmoid colon. No pericolonic inflammatory changes are seen. This may be due to underdistention. Please correlate with any still concern for diverticu litis or colitis. 6. Findings were discussed with Francia Dunn at 5:43 p.m. on 04/10/2023. RADIATION DOSE DELIVERED: 663.77mGy.cm Total DLP 663.77mGy.cm Total DLP DATA REPOSITORY: All CT scans at this facility are submitted to the National Radiology Data Registry (NRDR) Dose Index Registry (DIR) with the [employer] (A[employer]). RADIATION OPTIMIZATION: All CT scans at this facility use at least one of these dose optimization te chniques: automated exposure control; mA and/or kV adjustment per patient size (includes targeted exa ms where dose is matched to clinical indication); or iterative reconstruction.
[2023-04-10] MEDS: MORPHine 10 MG/ML VIAL 2 MG IVP (16:29)
[2023-04-10 16:32] LABS: Abs Immature Grans 0.01 10^3/uL (0.0-0.06); Absolute Basophil Count 0.07 10^3/uL (0.0-0.2); Absolute Eosinophil Count 0.56 10^3/uL (0.0-0.7); Absolute Lymphocyte Count 1.91 10^3/uL (1.2-3.4); Absolute Monocyte Count 0.68 10^3/uL (0.1-0.8); Absolute Neutrophil Count 4.06 10^3/uL (1.2-6.7); Eosinophils % 7.7; HCT 30.2 % (36.0-46.0); HGB 9.1 g/dL (11.2-15.7); Immature Grans % 0.1; Lymphocytes % 26.2; MCHC 30.1 % (32.0-36.0); MCV 66 fL (80-95); MPV 8.9 fL (8.0-11.0); Monocytes % 9.3; Neutrophils % 55.7; Platelet Count 641 10^3/uL (130-400); RBC 4.56 10^6/uL (3.93-5.22); RDW 19.1 % (11.7-14.6); RDW-SD 43.9 fL; WBC 7.29 10^3/uL (4.4-10.8)
[2023-04-10] MEDS: Normal Saline - Diluent 50 ML VIAL IJ ×2 (16:48→16:51)
[2023-04-10] MEDS: Omnipaque 350 MG/ML 100 ML BTL IJ (16:49)
[2023-04-10] MEDS: Omnipaque 350 MG/ML 50 ML BTL IJ (16:50)
[2023-04-10 16:56] LABS: Anisocytosis 1+; Diff Comment RBC Morph Reviewed; Hypochromasia 2+; Microcytosis 2+; Poikilocytes 2+
[2023-04-10] MEDS: MORPHine 4 MG/ML SYR IVP (17:15)
--- NOTE | 2023-04-10 18:47 | W.ED.GENAD ---
HPI General Date/Time Provider Initiated Documentation: 04/10/23 16:00. HPI Narrative: This 77-year-old female presents with bilateral lower extremity pain which she attributes to her prior surgery on bilateral legs. She states that she is no longer taking her fentanyl and the pain is excruciating, worse when she walks. She denies any fever chills or known injury. She describes the pain as [id number]. Denies any discoloration to her feet. Related Data Home Medications Medication Instructions Recorded Confirmed ascorbic acid-ascorbate sodium 1 wafer PO DAILY 07/12/20 04/10/23 (vitamin C) 500 mg oral wafer ropinirole 0.5 mg tablet 0.5 mg PO QHS 07/12/20 04/10/23 ferrous gluconate 236 mg (27 mg 236 mg PO DAILY 01/16/21 04/10/23 iron) tablet naloxone 4 mg/actuation nasal 4 mg NS DAILY PRN opioid overdose 07/10/22 04/10/23 spray (Narcan) #1 ea sennosides 8.6 mg-docusate sodium 1 - 2 tab-cap (1 - 2 x 8.6-50 mg) 07/10/22 04/10/23 50 mg tablet (Senna with Docusate PO QHS PRN constipation #30 tabs Sodium) metoprolol succinate 50 mg 50 mg PO DAILY #90 tabs 07/25/22 04/10/23 tablet,extended release 24 hr (Toprol XL) fluoxetine 20 mg capsule 20 mg PO DAILY #90 caps 08/29/22 04/10/23 docusate sodium 100 mg capsule 100 mg PO BID #180 caps 09/17/22 04/10/23 carbidopa 25 mg-levodopa 250 mg 1 tab PO BID 01/01/23 04/10/23 tablet albuterol sulfate 90 mcg/actuation 1 - 2 inh inhalation Q4H PRN 03/19/23 04/10/23 aerosol inhaler shortness of breath or wheezing #8.5 grams prednisone 20 mg tablet 40 mg (2 x 20 mg) PO DAILY #10 tabs 04/08/23 04/10/23 atorvastatin 10 mg tablet 10 mg PO DAILY #30 tabs 04/10/23 oxycodone 5 mg capsule 5 mg PO Q6H PRN #20 caps 04/10/23 Previous Rx's Medication Instructions Recorded naloxone 4 mg/actuation nasal 4 mg NS DAILY PRN opioid overdose 07/10/22 spray (Narcan) #1 ea sennosides 8.6 mg-docusate sodium 1 - 2 tab-cap (1 - 2 x 8.6-50 mg) 07/10/22 50 mg tablet (Senna with Docusate PO QHS PRN constipation #30 tabs Sodium) metoprolol succinate 50 mg 50 mg PO DAILY #90 tabs 07/25/22 tablet,extended release 24 hr (Toprol XL) fluoxetine 20 mg capsule 20 mg PO DAILY #90 caps 08/29/22 docusate sodium 100 mg capsule 100 mg PO BID #180 caps 09/17/22 albuterol sulfate 90 mcg/actuation 1 - 2 inh inhalation Q4H PRN 03/19/23 aerosol inhaler shortness of breath or wheezing #8.5 grams prednisone 20 mg tablet 40 mg (2 x 20 mg) PO DAILY #10 tabs 04/08/23 atorvastatin 10 mg tablet 10 mg PO DAILY #30 tabs 04/10/23 oxycodone 5 mg capsule 5 mg PO Q6H PRN #20 caps 04/10/23 Allergies Allergy/AdvReac Type Severity Reaction Status Date / Time Sulfa (Sulfonamide Allergy Severe Anaphylaxsi Verified 04/10/23 16:24 Antibiotics) s meperidine HCl [From Demerol] Allergy Intermediate Contraindicated, Verified 04/10/23 16:24 seizures phenytoin sodium Allergy Intermediate Contraindicated, Verified 04/10/23 16:24 [From Dilantin] seizures phenytoin sodium extended Allergy Intermediate Contraindicated, Verified 04/10/23 16:24 [From Dilantin] seizures amoxicillin Allergy Unknown unknown Verified 04/10/23 16:24 diazepam [From Valium] Allergy Unknown unknown Verified 04/10/23 16:24 hydromorphone [From Dilaudid] Allergy Unknown unknown Verified 04/10/23 16:24 midazolam HCl [From Versed] AdvReac Intermediate Psychosis Verified 04/10/23 16:24 oxycodone AdvReac Intermediate weird and Uncoded 04/10/23 16:24 anxious feeling General Stated Complaint: [facility]Medical CRISTO: 3 Course Vital Signs Vital signs: Vital Signs Temperature 36.3 C L 04/10/23 15:50 Pulse 92 H 04/10/23 15:50 Respiratory Rate 15 04/10/23 15:50 Pulse Oximetry 99 04/10/23 15:50 Temperature 36.3 C L 04/10/23 15:58 Temperature Source Tympanic 04/10/23 15:58 Pulse 97 H 04/10/23 16:41 Pulse 92 H 04/10/23 18:00 Respiratory Rate 19 04/10/23 18:00 Respiratory Effort Normal 04/10/23 15:58 Respiratory Depth Normal 04/10/23 15:58 Respiratory Pattern Normal 04/10/23 15:58 Blood Pressure 193/97 H 04/10/23 16:41 Blood Pressure Mean 124 04/10/23 16:41 Blood Pressure Position Sitting 04/10/23 15:50 Pulse Oximetry 99 04/10/23 15:58 Oxygen Delivery Method Room Air 04/10/23 15:58 Oxygen Flow Rate 0 04/10/23 15:50 Pain Level 8 04/10/23 15:50 Lab/Test Results Lab/Test Results: Laboratory Tests Range/Units 04/10/23 15:50 WBC (4.4-10.8) 10^3/uL 7.29 RBC (3.93-5.22) 10^6/uL 4.56 Hgb (11.2-15.7) g/dL 9.1 L Hct (36.0-46.0) % 30.2 L MCV (80-95) fL 66 L MCH (27.0-33.0) pg 20.0 L MCHC (32.0-36.0) % 30.1 L RDW (11.7-14.6) % 19.1 H Plt Count (130-400) 10^3/uL 641 H MPV (8.0-11.0) fL 8.9 Immature Gran % 0.1 Neutrophils % 55.7 Lymphocytes % 26.2 Monocytes % 9.3 Eosinophils % 7.7 Basophils % 1.0 Nucleated RBC % (0.0-0.3) % 0.0 Absolute Neutrophils (1.2-6.7) 10^3/uL 4.06 Absolute Lymphocytes (1.2-3.4) 10^3/uL 1.91 Absolute Monocytes (0.1-0.8) 10^3/uL 0.68 Absolute Eosinophils (0.0-0.7) 10^3/uL 0.56 Absolute Basophils (0.0-0.2) 10^3/uL 0.07 RBC Morphology See Below Hypochromasia 2+ Poikilocytosis 2+ Anisocytosis 1+ Microcytosis 2+ Medical Decision Making 77-year-old female, alert, oriented presenting with bilateral lower extremity pain, worsening CTA interpretation per discussion with Dr. Braun, radiologist my review shows occlusion to the distal posterior tibial and peroneal arteries, on the left there is occlusion of the posterior tibial artery I suspect that some of her pain is related to this She does have DP and PT pulses bilaterally however they are faint She has delayed cap refill bilaterally and Denies any chest pain or shortness of breath, denies any fever or chills, cardiac rate rhythm regular, no murmurs or rubs, lungs clear to auscultation bilaterally Case discussed with Dr. Hall, vascular surgeon at [facility], she feels that the patient is stable for discharge home at this time with close outpatient follow-up, recommends aspirin, atorvastatin, and risk resuming patient's at home metoprolol, patient is agreeable to this plan She is given pain medication, oxycodone and I will refer back to her primary care physician for continuing these meds as indicated She is aware regarding the importance of following up regarding her vascular occlusions and she was placed on the referral list for care management to follow-up with vascular surgery soon as possible Quality:SDOH Health Related Social Needs: No Data to Display PFSH All Active Problems (Updated 04/10/23 @ 20:55 by MEÑO Wick) Peripheral arterial disease (Acute) Vascular occlusion (Acute) Dyshidrosis (Acute) Chronic pain (Chronic) Depression (Chronic) Hematemesis (Acute) Acute anemia (Acute) NSTEMI (non-ST elevated myocardial infarction) (Acute) Current smoker (Acute) Narcotic withdrawal (Acute) Nausea (Acute) Hypertension (Acute) Anemia (Acute) Medical History Abdominal pain Acute hypokalemia Cachexia Chest pain Chronic, continuous use of opioids COPD (chronic obstructive pulmonary disease) COPD with acute exacerbation Fatigue GI bleed Helicobacter pylori gastritis Hx of drug withdrawal syndrome Late effect of pelvic fracture Loss of vision Movement disorder Multifocal pneumonia PTSD (post-traumatic stress disorder) Respiratory failure with hypoxia Seizures Temporal lobe epilepsy Vitamin D deficiency Social History Smoking/Tobacco Use Status: Current-Occasional Quit status: has quit before Second Hand Exposure: Yes Smoking risk assessment performed?: Yes Alcohol Intake: never Drug use: Daily Substance use type: marijuana Adopted: No Caregiver/Support person: Yes Foster care: No Household members: spouse Housing: house Number of Children: 1 number of grandchildren: 0 Communication Needs: Blind Education Level: middle school Do you need help understanding health information?: Often current occupation: retired [employer] Pets and animals: Yes Pets and animals: cat(s) and dog(s) Do you think of yourself as: straight/heterosexual Current gender identity: female What is your relationship status?: How often do you talk on the phone with friends or family?: decline to answer How often do you get together with friends or relatives?: never Do you belong to any clubs or organized social groups?: no Panel score (0-1 are the most socially isolated patients): 1 Seatbelt use: always Do you feel safe at home: Yes Do you feel safe in your relationship?: Yes Discharge Plan Disposition Patient Disposition: Home Discharge Details Clinical Impression: Vascular occlusion, Peripheral arterial disease Primary Care Provider: Carla Park ED Provider: Francia Dunn Home Meds and New Rx's Prescriptions: New atorvastatin 10 mg tablet 10 mg PO DAILY Qty: 30 0RF oxycodone 5 mg capsule 5 mg PO Q6H PRNQty: 20 0RF Continued metoprolol succinate [Toprol XL] 50 mg tablet extended release 24 hr 50 mg PO DAILY Qty: 90 3RF Hold Instructions: Pt Stopped/Never Started carbidopa-levodopa 25-250 mg tablet 1 tab PO BID Hold Instructions: Pt Stopped/Never Started Patient Comments: pt states medication prescribed from this office but no record naloxone [Narcan] 4 mg/actuation spray,non-aerosol 4 mg NS DAILY PRN (Reason: opioid overdose) Qty: 1 1RF sennosides-docusate sodium [Senna with Docusate Sodium] 8.6-50 mg tablet 1 - 2 tab-cap PO QHS PRN (Reason: constipation) Qty: 30 1RF Hold Instructions: Pt Stopped/Never Started Rx Instructions: Opioid induced constipation docusate sodium 100 mg capsule 100 mg PO BID Qty: 180 3RF Hold Instructions: Pt Stopped/Never Started ascorbic acid-ascorbate sodium 500 mg wafer 1 wafer PO DAILY Hold Instructions: Pt Stopped/Never Started ropinirole 0.5 mg tablet 0.5 mg PO QHS Hold Instructions: Pt Stopped/Never Started Rx Instructions: administer 1-3 hours before bedtime fluoxetine 20 mg capsule 20 mg PO DAILY Qty: 90 3RF Hold Instructions: Pt Stopped/Never Started albuterol sulfate 90 mcg/actuation HFA aerosol inhaler 1 - 2 inh INHALATION Q4H PRN (Reason: shortness of breath or wheezing) Qty: 8.5 12RF ferrous gluconate 236 mg (27 mg iron) Tablet 236 mg PO DAILY prednisone 20 mg tablet 40 mg PO DAILY Qty: 10 0RF Discharge Instructions Additional Instructions: You have arterial occlusions to both of your legs, this is likely causing some of your pain It is very important to follow-up with vascular surgery at [facility] Call them tomorrow, to schedule an appointment Phone:? Let them know your name should be with central scheduling to set up an appointment as soon as possible I am also giving you pain medication to take Take the Lipitor as prescribed Take a baby aspirin, 81 mg aspirin daily Resume your metoprolol, blood pressure medication and let your primary care physician know regarding your situation I would also ask for a prescription for pain medication in the interim Referrals: Carla Park NP [Primary Care Provider] -
[2023-04-10] MEDS: oxyCODONE 5 mg/Acetaminophen 325 mg TAB 1 TAB PO (20:50)
[2023-04-10] MEDS: Metoprolol CR 50 MG TABCR PO (20:50)
--- NOTE | 2023-04-11 05:52 | NUR.NOTE ---
Referral to Care Management to refer to vascular for f/u of bilateral leg vascular occlusion ольга.Nursing Note:
== END 2023-04-10 21:24 | disposition home or self-care (01) ==
PROVIDERS: Emergency Provider Physician Assistant; PCP Nurse Practitioner
DX: I73.9 Peripheral vascular disease, unspecified (principal); I99.8 Other disorder of circulatory system; I25.2 Old myocardial infarction; I10 Essential (primary) hypertension; F17.200 Nicotine dependence, unspecified, uncomplicated
CPT/HCPCS: 36415; 75635; 80053; 85652; 93005; 96374; 99285; 84550; 85025; 86140; 93010; 99284; J2270; J3490; Q9967

== ENCOUNTER 2023-04-16 03:52 | Inpatient (IN) | payer MEDICARE, SELFPAY ==
[2023-04-16] VITALS (35 sets, daily range): BP systolic 166–234; BP diastolic 71–108; PULSE 79–97; RESP 10–20; TEMP 36.9; O2SAT 91–100
--- NOTE | 2023-04-16 03:30 | RT.EKG_ITS ---
APPROVED REPORT Exam: Resting ECG Reason for Exam: nausea/vomiting Patient Location: E HR:92 bpm ECG Measurements Heart Rate 92 AXIS DC 152 P 79 QRSd 78 QRS 57 QT 359 T 83 QTc 443 Conclusion Sinus rhythm...normal P axis, V-rate 60- 99 Anteroseptal infarct, old...Q >40mS, V1-V2 NSR Normal axis, Normal intervals, Q waves in V1 and V2 no evidence of STEMI Minor changes from previous.
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
--- NOTE | 2023-04-16 04:47 | DI.CT_ITS ---
Exam(s) CT ABDOMEN PELVIS CTA EXAM: CT ABDOMEN PELVIS CTA CLINICAL HISTORY: GI bleed and abd pain. TECHNIQUE: Imaging Protocol: Axial computed tomography images with coronal and sagittal reformatted images were created and reviewed CONTRAST MATERIAL: Intravenous: Omnipaque 350 Contrast volume:100 ml Oral: None COMPARISON: CT CT ABD AORTA CTA W RUNOFF from 04/10/2023 FINDINGS: ABDOMEN: AORTA: Abdominal aorta is atherosclerotic but not significantly enlarged. The iliac arteries are also calcified and atherosclerotic but not enlarged. Celiac and superior mesenteric arteries are patent w ith no significant stenosis at their origins. No evidence of embolus within the SMA. The inferior mes enteric artery is patent. Some plaque is noted at the origins of both renal arteries. There is signif icant stenoses in both external iliac arteries but these vessels are not occluded. Common femoral art eries are patent. There is no ascites. There is an anterior abdominal wall midline umbilical fat containing hernia sac measuring 3 cm wide by 1.5 cm AP by 2.2 cm cephalocaudal. Does not contain bowel loops. LIVER: No focal hepatic lesions identified. There are dilated intrahepatic ducts. The common hepati c duct is dilated to 16 mm and the CBD is also dilated and measures 13 mm. GALLBLADDER/BILIARY: No obvious gallstones. CBD dilated as described above. PANCREAS: No obvious pancreatic mass but the pancreatic duct is dilated to 4 mm. No pancreatic calci fications nor cysts. No peripancreatic fluid SPLEEN: Spleen is not enlarged. There are no intrasplenic lesions. Splenic and portal veins are gamino nt. ADRENALS: There are no significant adrenal masses. KIDNEYS: No cysts evident. No calculi nor hydronephrosis. No solid renal masses. LYMPH NODES: There is no retroperitoneal nor para-aortic adenopathy. No obvious mesenteric masses. GI: There is no evidence of bowel obstruction, free air, nor abscess.However, there is a diffuse coli tis pattern involving left side of the colon at and distal to the splenic flexure to the rectosigmoid . There are diverticuli in the sigmoid but no evidence of acute diverticulitis. PELVIS: LYMPH NODES: There is no intrapelvic nor inguinal adenopathy. GI: No evidence of appendicitis.No evidence of sigmoid diverticulitis. URINARY BLADDER: No calculi nor masses evident REPRODUCTIVE: Uterus size normal. No adnexal masses. No free fluid in the pelvis. OSSEOUS: No significant osseous lesions. No fractures. Scoliosis noted. Multilevel chronic degenerative disc disease in the lumbar spine not ed. IMPRESSION: 1. There is a colitis pattern involving the colon at and distal to the splenic flexure. There is als o sigmoid diverticulosis but without evidence of obvious acute diverticulitis. No evidence of append icitis. 2. There is anterior abdominal wall midline umbilical hernia again noted which contains fat and no cal wel loops. There is no bowel obstruction. 3. The biliary tree is dilated with dilated intrahepatic ducts and CBD dilated to 13 mm. There is no obvious radiopaque calculus in the lower CBD and no obvious pancreatic head mass. However, the panc reatic duct is mildly dilated throughout its length. Close follow-up recommended RADIATION DOSE DELIVERED: 1,264.29mGy.cm Total DLP DATA REPOSITORY: All CT scans at this facility are submitted to the National Radiology Data Registry (NRDR) Dose Index Registry (DIR) with the [employer] (ACR). RADIATION OPTIMIZATION: All CT scans at this facility use at least one of these dose optimization te chniques: automated exposure control; mA and/or kV adjustment per patient size (includes targeted exa ms where dose is matched to clinical indication); or iterative reconstruction.
[2023-04-16] MEDS: MORPHine 10 MG/ML VIAL 2 MG IVP ×3 (04:53→11:49)
[2023-04-16] MEDS: Ondansetron 4 MG/2 ML VIAL IVP ×2 (04:55→06:18)
[2023-04-16 04:57] LABS: Abs Immature Grans 0.11 10^3/uL (0.0-0.06); Absolute Lymphocyte Count 2.16 10^3/uL (1.2-3.4); Basophils % 0.4; Eosinophils % 1.5; HCT 30.3 % (36.0-46.0); HGB 8.8 g/dL (11.2-15.7); Immature Grans % 0.6; Lymphocytes % 11.3; MCH 19.5 pg (27.0-33.0); MCV 67 fL (80-95); Monocytes % 6.6; Neutrophils % 79.6; Nucleated RBC 0.1 % (0.0-0.3); RBC 4.51 10^6/uL (3.93-5.22); RDW 21.5 % (11.7-14.6); RDW-SD 47.3 fL; WBC 19.08 10^3/uL (4.4-10.8)
[2023-04-16 05:09] LABS: INR 0.9 (0.9-1.1); Prothrombin Time 9.2 sec (9.1-11.1)
[2023-04-16] MEDS: MORPHine 4 MG/ML SYR IVP (05:11)
[2023-04-16 05:22] LABS: Absolute Basophil Count 0.08 10^3/uL (0.0-0.2); Absolute Eosinophil Count 0.29 10^3/uL (0.0-0.7); Absolute Monocyte Count 1.26 10^3/uL (0.1-0.8); Absolute Neutrophil Count 15.19 10^3/uL (1.2-6.7)
[2023-04-16 05:25] LABS: Diff Comment RBC Morph Reviewed; Platelet Count 855 10^3/uL (130-400)
[2023-04-16 05:26] LABS: Anisocytosis 2+; Microcytosis 1+; Poikilocytes 2+
[2023-04-16 05:30] LABS: ALT 24 U/L (14-59); AST 26 U/L (15-37); Albumin 3.7 g/dL (3.4-5.0); Alkaline Phosphatase 106 U/L (46-116); Anion Gap 12.5 mmol/L (3-11); BUN 26 mg/dL (7-18); Bilirubin, Total 0.3 mg/dL (0.2-1.0); CO2 21.5 mmol/L (21.0-32.0); CREATININE 0.9 mg/dL (0.55-1.02); Calcium 8.9 mg/dL (8.5-10.1); Chloride 105 mmol/L (98-107); Estimated GFR 65.03 (mL/min/1.73m2); Glucose 118 mg/dL (74-106); Magnesium 2.3 mg/dL (1.8-2.4); Potassium 4.4 mmol/L (3.5-5.1); Sodium 139 mmol/L (136-145); Total Protein 7.7 g/dL (6.4-8.2)
[2023-04-16] MEDS: PANTOPRAZOLE 80 MG in Normal Saline 100 ML 10 MG IV (05:30)
[2023-04-16 05:31] LABS: Lipase 52 U/L (16-77)
[2023-04-16 05:42] LABS: Troponin I < 50 ng/L (< or =60)
[2023-04-16] MEDS: Omnipaque 350 MG/ML 100 ML BTL IJ (06:20)
[2023-04-16] MEDS: Normal Saline - Diluent 50 ML VIAL IJ (06:29)
[2023-04-16] MEDS: Normal Saline Flush 10 ML SYR IVP (06:29)
[2023-04-16] MEDS: MORPHine 4 MG/ML SYR (06:51)
--- NOTE | 2023-04-16 07:14 | DI.VRAD_ITS ---
PROCEDURE INFORMATION: Exam: CTA Abdomen and Pelvis With Contrast Exam date and time: 04/16/2023 6:13 AM Age: 77 years old Clinical indication: Abdominal pain; Generalized; Patient HX: Gi bleed, abd pain TECHNIQUE: Imaging protocol: Computed tomographic angiography of the abdomen and pelvis with contrast. Exam focused on the arteries. 3D rendering (Not supervised by radiologist): MIP and/or 3D reconstructed images were created by the technologist. Radiation optimization: All CT scans at this facility use at least one of these dose optimization techniques: automated exposure control; mA and/or kV adjustment per patient size (includes targeted exams where dose is matched to clinical indication); or iterative reconstruction. Contrast material: OMNIPAQUE 350; Contrast volume: 70 ml; Contrast route: INTRAVENOUS (IV); COMPARISON: CT ABDOMEN PELVIS W 07/06/2022 9:31 AM FINDINGS: Lungs: Bibasilar atelectasis versus scarring. Aorta: No aortic aneurysm. No aortic dissection. Celiac trunk and mesenteric arteries: No occlusion or significant stenosis. Renal arteries: No occlusion or significant stenosis. Right iliac arteries: No occlusion or significant stenosis. Left iliac arteries: No occlusion or significant stenosis. Liver: No mass. Gallbladder and bile ducts: Prominence of the common biliary duct reaching up to 11 mm. Pancreas: Fatty atrophy of the pancreas with prominence of the pancreatic duct. Spleen: Unremarkable. No splenomegaly. Adrenal glands: Unremarkable. No mass. Kidneys and ureters: Multiple regions of left renal cortical atrophy without aggressive mass or lesion. Stomach and bowel: Diffuse rectal and sigmoid colonic wall thickening with mild surrounding inflammatory change. Diffuse sigmoid and descending colonic diverticula are noted. There is mild distal transverse and descending colonic wall thickening. Similar-appearing hiatal hernia. Appendix: No evidence of appendicitis. Intraperitoneal space: Unremarkable. No free air. No significant fluid collection. Lymph nodes: Unremarkable. No enlarged lymph nodes. Urinary bladder: Unremarkable. No mass. Reproductive: Unremarkable as visualized. Bones/joints: Diffuse severe degenerative changes of the visualized osseous structures. Soft tissues: Small fat containing umbilical hernia. Other findings: Severe atherosclerotic disease of the visualized vasculature. IMPRESSION: 1. No evidence of gastrointestinal bleed on this examination. 2. Findings suggestive of nonspecific colitis, similar to prior comparisons. Correlate with laboratory findings and physical examination. 3. Other findings as above. Dictated and Authenticated by: Ramin Bernard MD. Ordering:DEWAYNE Linares MD
[2023-04-16] MEDS: fentaNYL 100 MCG/2 ML VIAL 50 MCG IVP (08:20)
[2023-04-16 08:55] LABS: Salicylate < 2.8 mg/dL (<2.8)
[2023-04-16 09:43] LABS: Troponin I < 50 ng/L (< or =60)
[2023-04-16] MEDS: Metoprolol 5 MG/5 ML VIAL 2.5 MG IVP (11:50)
[2023-04-16] MEDS: oxyCODONE 5 MG TAB PO (12:09)
[2023-04-16] MEDS: Pantoprazole 40 MG VIAL IVP (12:10)
[2023-04-16] MEDS: Lactated Ringers 1,000 ML 75 ML IV (12:12)
[2023-04-16 13:04] LABS: Lab Add On Test done
[2023-04-16 13:13] LABS: ESR 23 mm/hr (0-30)
[2023-04-16 13:29] LABS: C-Reactive Protein < 0.50 mg/dL (<or=0.5)
[2023-04-16] MEDS: Sucralfate 1 GM TAB PO (13:39)
--- NOTE | 2023-04-16 14:18 | W.PM.HP.N ---
Date of service: 04/16/23 Time of Service: 10:55 Assessment and Plan Assessment and plan (1) GI bleed: Assessment and plan: CT shows diverticulosis w/o diverticulitis, no bowel ischemia Surgical consult Palliative consult (2) Hematemesis: Status: Acute Assessment and plan: Will continue to monitor No further episode as per this PM (3) Abdominal pain: Assessment and plan: Morphine PRN, adjusting dose Consult pharmacy on MMI corresponding to outpatient dosing -As per pharmacy oxycodone script filled on 04/11 but patient mentioned having received only enough for 4 days and was out of oxycodone (4) Narcotic withdrawal: Status: Acute Assessment and plan: As above and will adjust her narcotic pain meds safely Considering clonidine PO (5) Acute anemia: Status: Acute (6) Nausea: Status: Acute Assessment and plan: PRN ondansetron (7) Hypertension: Status: Acute Assessment and plan: Was on metoprolol and stopped taking it Resume metoprolol (8) Contraindication to deep vein thrombosis (DVT) prophylaxis: Status: Acute Assessment and plan: Acute GI bleed and anemia no lovenox Considering mechanical DVT prophylaxis TEDs or SCD's Discussed with Dr Neal History of Present Illness History of Present Illness Chief Complaint: Abdominal pain,nausea, vomiting Narrative: This 77 years old frail female patient with legally blind with past medical history of non-ST elevation myocardial infarction, chronic back pain, previous narcotic withdrawal, hypertension, anemia, GI bleed, gastritis and still taking aspirin daily presented today in the ED at [facility] for evaluation of abdominal pain and a question of gastrointestinal bleeding due to coffee-ground colored hematemesis. Abdominal CT revealed colitis, diverticulosis without diverticulitis, no constipation, umbilical hernia without bowel loop entrapment. Hemoglobin in the ED was 8.8 hematocrit 30.3, with MCV and MCH showing most likely microcytic anemia; platelet count was 855. Chemistry was unremarkable except for a BUN of 26 most likely due to dehydration versus nitrogen production from digested blood. In the ED the patient was treated with IV morphine and fentanyl for pain. The hospitalist was consulted and the patient was admitted to the medical surgical floor with telemetry for evaluation and management of abdominal pain and gastrointestinal bleeding. The salicylate level ordered by the hospitalist was less than 2.8; as patient mention taking aspirin to help with pain management despite contraindications. On arrival to the floor the patient was treated with IV morphine for pain and pharmacy consult will be done to establish the total milliequivalent dosing of taken since admission to the ED as patient mentioned that she takes 75 mg of oxycodone per day. The patient was also treated with IV Protonix and oral Carafate; IV fluids were initiated. Repeat hemoglobin and hematocrit scheduled for noon. The patient mentioned that she wanted to be a full code. Discussed with Dr. Neal Review of Systems All systems reviewed & are unremarkable except as noted in HPI and below Eyes Eyes: Reports loss of vision (legally blind) Cardiovascular Cardiovascular: Reports system reviewed and no additional complaints, except as documented, Denies chest pain and Denies syncope Respiratory Respiratory: Reports system reviewed and no additional complaints, except as documented, Denies cough, Denies hemoptysis and Denies pain on inspiration Gastrointestinal Gastrointestinal: Reports system reviewed and no additional complaints, except as documented, Reports abdominal pain, Denies belching, Denies bloating, Reports coffee ground emesis, Denies constipation and Denies heartburn Genitourinary Genitourinary: Reports system reviewed and no additional complaints, except as documented and Denies urinary frequency Musculoskeletal Musculoskeletal: Reports system reviewed and no additional complaints, except as documented, Denies abnormal gait and Reports back pain Neurologic Neurologic: Denies abnormal gait, Denies syncope, Denies lack of coordination, Denies localized weakness and Reports loss of vision (legally blind) Psychiatric Psychiatric: Reports mood swings PFSH All Active Problems (Updated 04/16/23 @ 19:15 by Yesenia Muhammad APRN) Contraindication to deep vein thrombosis (DVT) prophylaxis (Acute) Palliative care encounter (Acute) Physician orders for life-sustaining treatment (POLST) form indicates patient wish for zu-vhk-jnnzxnothne status (Acute) ACP (advance care planning) (Acute) Peripheral arterial disease (Acute) Vascular occlusion (Acute) Dyshidrosis (Acute) Chronic pain (Chronic) Depression (Chronic) Hematemesis (Acute) Acute anemia (Acute) NSTEMI (non-ST elevated myocardial infarction) (Acute) Current smoker (Acute) Narcotic withdrawal (Acute) Nausea (Acute) Hypertension (Acute) Anemia (Acute) Medical History Acute hypokalemia COPD (chronic obstructive pulmonary disease) Respiratory failure with hypoxia Multifocal pneumonia COPD with acute exacerbation Temporal lobe epilepsy Vitamin D deficiency Late effect of pelvic fracture Cachexia PTSD (post-traumatic stress disorder) GI bleed Fatigue Helicobacter pylori gastritis Chest pain Movement disorder Loss of vision Abdominal pain Chronic, continuous use of opioids Hx of drug withdrawal syndrome Seizures Social History Smoking/Tobacco Use Status: Former Tobacco Use Quit status: has quit before Second Hand Exposure: Yes Smoking risk assessment performed?: Yes Alcohol Intake: never Drug use: Daily Substance use type: marijuana Adopted: No Caregiver/Support person: Yes Foster care: No Household members: spouse Housing: house Number of Children: 1 number of grandchildren: 0 Communication Needs: Blind Education Level: middle school Do you need help understanding health information?: Often current occupation: retired [employer] Pets and animals: Yes Pets and animals: cat(s) and dog(s) Do you think of yourself as: straight/heterosexual Current gender identity: female What is your relationship status?: How often do you talk on the phone with friends or family?: decline to answer How often do you get together with friends or relatives?: never Do you belong to any clubs or organized social groups?: no Panel score (0-1 are the most socially isolated patients): 1 Seatbelt use: always Do you feel safe at home: Yes Do you feel safe in your relationship?: Yes Meds Allergies and Home Medications Allergies Allergy/AdvReac Type Severity Reaction Status Date / Time Sulfa (Sulfonamide Allergy Severe Anaphylaxsi Verified 04/16/23 04:20 Antibiotics) s meperidine HCl [From Demerol] Allergy Intermediate Contraindicated, Verified 04/16/23 04:20 seizures phenytoin sodium Allergy Intermediate Contraindicated, Verified 04/16/23 04:20 [From Dilantin] seizures phenytoin sodium extended Allergy Intermediate Contraindicated, Verified 04/16/23 04:20 [From Dilantin] seizures amoxicillin Allergy Unknown unknown Verified 04/16/23 04:20 diazepam [From Valium] Allergy Unknown unknown Verified 04/16/23 04:20 hydromorphone [From Dilaudid] Allergy Unknown unknown Verified 04/16/23 04:20 midazolam HCl [From Versed] AdvReac Intermediate Psychosis Verified 04/16/23 04:20 oxycodone AdvReac Intermediate weird and Uncoded 04/16/23 04:20 anxious feeling Home Medications Medication Instructions Recorded Confirmed Type ropinirole 0.5 mg tablet 0.5 mg PO QHS 07/12/20 04/16/23 History ferrous gluconate 236 mg (27 mg 236 mg PO DAILY 01/16/21 04/16/23 History iron) tablet naloxone 4 mg/actuation nasal 4 mg NS DAILY PRN opioid overdose 07/10/22 04/16/23 Rx spray (Narcan) #1 ea sennosides 8.6 mg-docusate sodium 1 - 2 tab-cap (1 - 2 x 8.6-50 mg) 07/10/22 04/16/23 Rx 50 mg tablet (Senna with Docusate PO QHS PRN constipation #30 tabs Sodium) metoprolol succinate 50 mg 50 mg PO DAILY #90 tabs 07/25/22 04/16/23 Rx tablet,extended release 24 hr (Toprol XL) fluoxetine 20 mg capsule 20 mg PO DAILY #90 caps 08/29/22 04/16/23 Rx carbidopa 25 mg-levodopa 250 mg 1 tab PO BID 01/01/23 04/16/23 History tablet albuterol sulfate 90 mcg/actuation 1 - 2 inh inhalation Q4H PRN 03/19/23 04/16/23 Rx aerosol inhaler shortness of breath or wheezing #8.5 grams prednisone 20 mg tablet 40 mg (2 x 20 mg) PO DAILY #10 tabs 04/08/23 04/16/23 Rx atorvastatin 10 mg tablet 10 mg PO DAILY #30 tabs 04/10/23 04/16/23 Rx oxycodone 5 mg capsule 5 mg PO Q6H PRN #20 caps 04/10/23 04/16/23 Rx docusate sodium 100 mg capsule 100 mg PO BID #60 caps 04/16/23 Rx (Colace) pantoprazole 40 mg tablet,delayed 40 mg PO BID #60 tabs 04/16/23 Rx release sucralfate 1 gram tablet 1 g PO AC & HS #120 tabs 04/16/23 Rx Exam Narrative Exam Narrative: Constitutional The patient arrivjng on med-surg floor when seen, steady gait on ambulation, legally aurora but sees some color, comfortable and cooperative during the interview. The patient is well groomed without acute distress and has average body habitus/is obese/ is thin. HENMT: Head is atraumatic, normocephalic, no lymphadenopathy. Facial structures with normal appearance Eyes: Well aligned, intact ROM Neck: Normal ROM, no meningeal signs Neuro:alert and oriented to self, person, place time and situation. No neurological focal deficit, PERRLA Chest:Chest is symmetrical and normal appearance Resp: Normal respiratory pattern, speaks in full sentences, unlabored breathing, clear lung bilaterally Cardio: regular rhythm, S1, S2, no murmur, capillary refill<3 sec., bilateral radial and dorsalis pedis pulses are positive, palpable GI: Abdomen is not distended, soft and non tender, bowel sounds are present : Negative Costovertebral angle tenderness, no bladder distension Back/spine/Pelvis: No back tenderness, normal alignment Integumentary: No skin lesions or rash Extremities: strength 5/5 to bilateral lower and upper extremities Psych: RASS 0, congruent mood and normal affect. Results Labs 04/16/23 14:25 04/16/23 04:05 Labs: Laboratory Results - last 24 hr 04/16/23 04/16/23 04/16/23 04:05 08:10 09:20 WBC 19.08 H RBC 4.51 Hgb 8.8 L Hct 30.3 L MCV 67 L MCH 19.5 L MCHC 29.0 L RDW 21.5 H Plt Count 855 H* MPV 9.0 Immature Gran % 0.6 Neutrophils % 79.6 Lymphocytes % 11.3 Monocytes % 6.6 Eosinophils % 1.5 Basophils % 0.4 Nucleated RBC % 0.1 Absolute Neutrophils 15.19 H Absolute Lymphocytes 2.16 Absolute Monocytes 1.26 H Absolute Eosinophils 0.29 Absolute Basophils 0.08 RBC Morphology See Below Poikilocytosis 2+ Anisocytosis 2+ Microcytosis 1+ ESR 23 PT 9.2 INR 0.9 Sodium 139 Potassium 4.4 Chloride 105 Carbon Dioxide 21.5 Anion Gap 12.5 H BUN 26 H Creatinine 0.9 Est GFR (CKD-EPI 2020) 65.03 Glucose 118 H Calcium 8.9 Magnesium 2.3 Total Bilirubin 0.3 AST 26 ALT 24 Alkaline Phosphatase 106 Troponin I < 50 < 50 C-Reactive Protein < 0.50 Total Protein 7.7 Albumin 3.7 Lipase 52 Salicylates < 2.8 Add-On Test Request Patient ABO/Rh A Positive Antibody Screen NEGATIVE 04/16/23 11:41 WBC RBC Hgb Hct MCV MCH MCHC RDW Plt Count MPV Immature Gran % Neutrophils % Lymphocytes % Monocytes % Eosinophils % Basophils % Nucleated RBC % Absolute Neutrophils Absolute Lymphocytes Absolute Monocytes Absolute Eosinophils Absolute Basophils RBC Morphology Poikilocytosis Anisocytosis Microcytosis ESR PT INR Sodium Potassium Chloride Carbon Dioxide Anion Gap BUN Creatinine Est GFR (CKD-EPI 2020) Glucose Calcium Magnesium Total Bilirubin AST ALT Alkaline Phosphatase Troponin I C-Reactive Protein Total Protein Albumin Lipase Salicylates Add-On Test Request done Patient ABO/Rh Antibody Screen Last Vital Signs Temp 36.9 C 04/16/23 11:12 Pulse 86 04/16/23 11:50 Resp 18 04/16/23 11:12 BP 179/82 H 04/16/23 11:50 Pulse Ox 91 L 04/16/23 11:12 Time Spent Time spent with Patient: >75 minutes Time was spent: preparing to see the patient(eg.review tests), obtaining and/or reviewing separately otained hiistory, ordering medications,tests, procedures, referring, communicating with other health child care giver, indepentently interpreting results, counseling the patient and care coordination
[2023-04-16 14:30] LABS: HCT 26.5 % (36.0-46.0); HGB 7.8 g/dL (11.2-15.7)
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
[2023-04-16] MEDS: MORPHine 10 MG/ML VIAL 3 MG IVP (14:46)
--- NOTE | 2023-04-16 16:18 | NUR.NOTE ---
Nursing Note:RN called into pt's room after pt stated that they were going to leave AMA because pain has not been managed and not being able to eat. RN had notified gas charger two different accounts of pain not being controlled w/ current ordered regimen. IV morphine was increased to 3mg, but pt still c/o of uncontrolled pain. When RN walked into pt room, patient was sitting at the edge of bed, air sampling and monitoring had been removed and patient requesting a telephone to call her for a ride. RN communicated that the doctor was being notified about her concerns and urged pt to wait to discuss plan of care w/ doctor. Pt was adamant about wanting to leave. RN removed Left PIV and assisted pt w/ phone call to call for a ride. Pt refusing to sign AMA paperwork. Doctor arrived at pt's bedside to talk w/ pt. Rosa Isela Garcia RN
--- NOTE | 2023-04-16 16:25 | W.PM.DS.N ---
Date of service: 04/16/23 Time of Service: 16:56 DS: Diagnosis Discharge Diagnosis (1) GI bleed: (2) Chronic pain: Status: Chronic (3) COPD (chronic obstructive pulmonary disease): (4) Fatigue: (5) ACP (advance care planning): Status: Acute (6) Physician orders for life-sustaining treatment (POLST) form indicates patient wish for [id number] status: Status: Acute (7) Palliative care encounter: Status: Acute Discharge Plan Disposition Patient Disposition: Against Medical Advice Condition: Serious Discharge Details Reason For Visit: GI bleeding, abdominal, hypertensive urgency Admit Date/Time: 04/16/23 09:25 Admit Provider: Tricia Neal Attending Provider: Tricia Neal Primary Care Provider: Carla Park Hospital Course Hospital Course: This 77 years old frail female patient with legally blind with past medical history of non-ST elevation myocardial infarction, chronic back pain, previous narcotic withdrawal, hypertension, anemia, GI bleed, gastritis and still taking aspirin daily presented today in the ED at [facility] for evaluation of abdominal pain and a question of gastrointestinal bleeding due to coffee-ground colored hematemesis. Abdominal CT revealed colitis, diverticulosis without diverticulitis, no constipation, umbilical hernia without bowel loop entrapment. Hemoglobin in the ED was 8.8 hematocrit 30.3, with MCV and MCH showing most likely microcytic anemia; platelet count was 855. Chemistry was unremarkable except for a BUN of 26 most likely due to dehydration versus nitrogen production from digested blood. In the ED the patient was treated with IV morphine and fentanyl for pain. The hospitalist was consulted and the patient was admitted to the medical surgical floor with telemetry for evaluation and management of abdominal pain and gastrointestinal bleeding. The salicylate level ordered by the hospitalist was less than 2.8; as patient mention taking aspirin to help with pain management despite contraindications. On arrival to the floor the patient was treated with IV morphine for pain and pharmacy was consulted to establish the total milliequivalent dosing taken since admission as patient mentioned that she takes 75 mg of oxycodone per day. The patient was also treated with IV Protonix and oral Carafate; IV fluids were initiated. Repeat hemoglobin and hematocrit scheduled for noon resulted in H&H of 7.8 and 26.5; might be due to dilution. The patient was seen by palliative care and change her CODE STATUS to DNR/DNI. As pain management was adjusted, the patient decided to leave AGAINST MEDICAL ADVICE and pulled her IV access out before additional dose of fentanyl could be given. The patient was instructed of the seriousness of her condition as gastrointestinal bleeding could be lethal, causing her to . The patient mentioned I don't care. Patient also mentioned that she was out of oral oxycodone which was filled on 11 April. Patient has an narcotic contract with primary care provider and is aware that she has to go to her PCP to obtain additional oxycodone. The patient agrees to be discharged on Protonix and sucralfate and will call the surgical office for outpatient consult with Dr. Shant Braun. The patient is also aware that she has to call her primary care provider office for follow-up within [address] Neal Home Meds and New Rx's Prescriptions: New docusate sodium [Colace] 100 mg Capsule 100 mg PO BID Qty: 60 0RF sucralfate 1 gram Tablet 1 g PO AC & HS Qty: 120 0RF pantoprazole 40 mg tablet,delayed release (DR/EC) 40 mg PO BID Qty: 60 0RF Continued metoprolol succinate [Toprol XL] 50 mg tablet extended release 24 hr 50 mg PO DAILY Qty: 90 3RF Hold Instructions: Pt Stopped/Never Started carbidopa-levodopa 25-250 mg tablet 1 tab PO BID Hold Instructions: Pt Stopped/Never Started Patient Comments: pt states medication prescribed from this office but no record naloxone [Narcan] 4 mg/actuation spray,non-aerosol 4 mg NS DAILY PRN (Reason: opioid overdose) Qty: 1 1RF sennosides-docusate sodium [Senna with Docusate Sodium] 8.6-50 mg tablet 1 - 2 tab-cap PO QHS PRN (Reason: constipation) Qty: 30 1RF Hold Instructions: Pt Stopped/Never Started Rx Instructions: Opioid induced constipation ropinirole 0.5 mg tablet 0.5 mg PO QHS Hold Instructions: Pt Stopped/Never Started Rx Instructions: administer 1-3 hours before bedtime fluoxetine 20 mg capsule 20 mg PO DAILY Qty: 90 3RF Hold Instructions: Pt Stopped/Never Started albuterol sulfate 90 mcg/actuation HFA aerosol inhaler 1 - 2 inh INHALATION Q4H PRN (Reason: shortness of breath or wheezing) Qty: 8.5 12RF ferrous gluconate 236 mg (27 mg iron) Tablet 236 mg PO DAILY atorvastatin 10 mg tablet 10 mg PO DAILY Qty: 30 0RF oxycodone 5 mg capsule 5 mg PO Q6H PRNQty: 20 0RF prednisone 20 mg tablet 40 mg PO DAILY Qty: 10 0RF Discontinued ascorbic acid-ascorbate sodium 500 mg wafer 1 wafer PO DAILY Hold Instructions: Pt Stopped/Never Started Discharge Instructions Referrals: Shant Braun MD [ [facility] STAFF PHYSICIAN] - (Call the Surgical office in the morning at following Phone number: [phone] to set up your outpatient appointment with Dr. Braun ) Carla Park NP [Primary Care Provider] - (Call your PCP in the morning for a follow-up appointment) Activity:: Activity as Tolerated Equipment/Supplies:: No Equipment Needed Discharge Orders Discharge Orders: Discharge Order (Routine); Ordered 04/16/23 Ordered By: Yesenia Muhammad Discharge Data Discharge Date/Time-TO BE ENTERED AT DEPARTURE: 04/16/23 17:18 DS: Summary Time Spent with Patient providing and/or coordinating discharge services: Greater than 30 minutes Status at Discharge Functional status at discharge: independent ambulation Overall status at discharge: patient is not back to baseline Mental Status: other Speech and Movement: agitated Mood: labile mood and other Affect: labile affect and elated Quality:SDOH Health Related Social Needs: No Data to Display Exam Narrative Exam Narrative: Constitutional The patient arrivjng on med-surg floor when seen, steady gait on ambulation, legally aurora but sees some color, comfortable and cooperative during the interview. The patient is well groomed without acute distress and has average body habitus/is obese/ is thin. HENMT: Head is atraumatic, normocephalic, no lymphadenopathy. Facial structures with normal appearance Eyes: Well aligned, intact ROM Neck: Normal ROM, no meningeal signs Neuro:alert and oriented to self, person, place time and situation. No neurological focal deficit, PERRLA Chest:Chest is symmetrical and normal appearance Resp: Normal respiratory pattern, speaks in full sentences, unlabored breathing, clear lung bilaterally Cardio: regular rhythm, S1, S2, no murmur, capillary refill<3 sec., bilateral radial and dorsalis pedis pulses are positive, palpable GI: Abdomen is not distended, soft and non tender, bowel sounds are present : Negative Costovertebral angle tenderness, no bladder distension Back/spine/Pelvis: No back tenderness, normal alignment Integumentary: No skin lesions or rash Extremities: strength 5/5 to bilateral lower and upper extremities Psych: RASS 0, congruent mood and normal affect. Psych Mental Status: other Speech and Movement: agitated Mood: labile mood and other Affect: labile affect and elated DS: Data Vitals/I&O Vitals and I&O: Vital Signs Temperature 36.9 C 04/16/23 11:12 Temperature Source Oral 04/16/23 04:18 Pulse 92 H 04/16/23 14:53 Pulse Rhythm Regular 04/16/23 11:12 Pulse 90 04/16/23 10:16 Respiratory Rate 18 04/16/23 14:53 Respiratory Effort Normal, Non-Labored 04/16/23 11:12 Respiratory Depth Normal 04/16/23 11:12 Respiratory Pattern Normal 04/16/23 11:12 Blood Pressure 176/83 H 04/16/23 14:53 Blood Pressure Mean 120 04/16/23 10:16 Blood Pressure Position Supine 04/16/23 04:18 Pulse Oximetry 100 04/16/23 14:53 Oxygen Delivery Method Room Air 04/16/23 14:53 Oxygen Flow Rate 0 04/16/23 14:53 Pain Level 7 04/16/23 14:53 Intake & Output 04/15/23 04/16/23 04/16/23 23:59 11:59 23:59 Intake Total 100 / 100 Balance 100 / 100 Weight 49.895 kg Intake: IV 100 / 100 Other: Urine Color Yellow Urine Appearance Clear Urine Odor None Stool Size Moderate Stool Characteristics Soft Voiding Methods Bedside Commode # Voids 1 # Bowel Movements 1 Data Completed and Pending Labs on day of discharge: Labs from last 24 hours 04/16/23 04/16/23 04/16/23 14:25 11:41 09:20 WBC RBC Hgb 7.8 L Hct 26.5 L MCV MCH MCHC RDW Plt Count MPV Immature Gran % Neutrophils % Lymphocytes % Monocytes % Eosinophils % Basophils % Nucleated RBC % Absolute Neutrophils Absolute Lymphocytes Absolute Monocytes Absolute Eosinophils Absolute Basophils RBC Morphology Poikilocytosis Anisocytosis Microcytosis ESR PT INR Sodium Potassium Chloride Carbon Dioxide Anion Gap BUN Creatinine Est GFR (CKD-EPI 2020) Glucose Calcium Magnesium Total Bilirubin AST ALT Alkaline Phosphatase Troponin I < 50 C-Reactive Protein Total Protein Albumin Lipase Salicylates Add-On Test Request done Patient ABO/Rh Antibody Screen 04/16/23 04/16/23 08:10 04:05 WBC 19.08 H RBC 4.51 Hgb 8.8 L Hct 30.3 L MCV 67 L MCH 19.5 L MCHC 29.0 L RDW 21.5 H Plt Count 855 H* MPV 9.0 Immature Gran % 0.6 Neutrophils % 79.6 Lymphocytes % 11.3 Monocytes % 6.6 Eosinophils % 1.5 Basophils % 0.4 Nucleated RBC % 0.1 Absolute Neutrophils 15.19 H Absolute Lymphocytes 2.16 Absolute Monocytes 1.26 H Absolute Eosinophils 0.29 Absolute Basophils 0.08 RBC Morphology See Below Poikilocytosis 2+ Anisocytosis 2+ Microcytosis 1+ ESR 23 PT 9.2 INR 0.9 Sodium 139 Potassium 4.4 Chloride 105 Carbon Dioxide 21.5 Anion Gap 12.5 H BUN 26 H Creatinine 0.9 Est GFR (CKD-EPI 2020) 65.03 Glucose 118 H Calcium 8.9 Magnesium 2.3 Total Bilirubin 0.3 AST 26 ALT 24 Alkaline Phosphatase 106 Troponin I < 50 C-Reactive Protein < 0.50 Total Protein 7.7 Albumin 3.7 Lipase 52 Salicylates < 2.8 Add-On Test Request Patient ABO/Rh A Positive Antibody Screen NEGATIVE PFSH All Active Problems (Updated 04/16/23 @ 19:15 by Yesenia Muhammad APRN) Contraindication to deep vein thrombosis (DVT) prophylaxis (Acute) Palliative care encounter (Acute) Physician orders for life-sustaining treatment (POLST) form indicates patient wish for [id number] status (Acute) ACP (advance care planning) (Acute) Peripheral arterial disease (Acute) Vascular occlusion (Acute) Dyshidrosis (Acute) Chronic pain (Chronic) Depression (Chronic) Hematemesis (Acute) Acute anemia (Acute) NSTEMI (non-ST elevated myocardial infarction) (Acute) Current smoker (Acute) Narcotic withdrawal (Acute) Nausea (Acute) Hypertension (Acute) Anemia (Acute) Medical History Acute hypokalemia COPD (chronic obstructive pulmonary disease) Respiratory failure with hypoxia Multifocal pneumonia COPD with acute exacerbation Temporal lobe epilepsy Vitamin D deficiency Late effect of pelvic fracture Cachexia PTSD (post-traumatic stress disorder) GI bleed Fatigue Helicobacter pylori gastritis Chest pain Movement disorder Loss of vision Abdominal pain Chronic, continuous use of opioids Hx of drug withdrawal syndrome Seizures Social History Smoking/Tobacco Use Status: Former Tobacco Use Quit status: has quit before Second Hand Exposure: Yes Smoking risk assessment performed?: Yes Alcohol Intake: never Drug use: Daily Substance use type: marijuana Adopted: No Caregiver/Support person: Yes Foster care: No Household members: spouse Housing: house Number of Children: 1 number of grandchildren: 0 Communication Needs: Blind Education Level: middle school Do you need help understanding health information?: Often current occupation: retired [employer] Pets and animals: Yes Pets and animals: cat(s) and dog(s) Do you think of yourself as: straight/heterosexual Current gender identity: female What is your relationship status?: How often do you talk on the phone with friends or family?: decline to answer How often do you get together with friends or relatives?: never Do you belong to any clubs or organized social groups?: no Panel score (0-1 are the most socially isolated patients): 1 Seatbelt use: always Do you feel safe at home: Yes Do you feel safe in your relationship?: Yes Time Spent with Patient Time Spent with Patient: >85 minutes Time was spent: preparing to see the patient(eg.review tests), obtaining and/or reviewing separately otained hiistory, ordering medications,tests, procedures, referring, communicating with other health rental boats caretaker, indepentently interpreting results, counseling the patient and care coordination
--- NOTE | 2023-04-16 18:40 | NUR.NOTE ---
~1600 RN called into room after pt notified TIME STUDY TECHNOLOGIST that they are having a lot of pain and stating they are going to leave AMA. As RN entered the room pt was sitting edge of bed and had pulled of desk monitor. IVF currently infusing. RN discussed w/ the patient that the doctor was being notified that their pain was uncontrolled. Provider had been notified prior about pain being uncontrolled and morphine had been increased to 3mg, however pt still rating pain 9/10 in abdomen mostly w/ some pain in LUE. Despite multiple attempts to stay to discuss plan of care w/ doctor pt was adamant about leaving and wished to have a phone to call her to come pick her up. This RN removed PIV and assisted pt w/ calling . Doctor came up shortly after and discussed plan of care w/ pt, however pt still insisting on leaving AMA. Pt agreed to sign paper work. arrived on unit @1730 to pick pt up. Pt left w/ belongings and ambulating w/ steady gait at time of leaving unit. Vlad MAHAN
== END 2023-04-16 17:18 | disposition left against medical advice (07) | DRG 378 ==
LOC: ER 09:07 → MS 11:34
PROVIDERS: Emergency Medicine Emergency Medical Services; Admitting Provider Internal Medicine; Emergency Provider Emergency Medicine; PCP Nurse Practitioner; Visit Provider Internal Medicine
DX: K92.0 Hematemesis (principal); G40.109 Localization-related (focal) (partial) symptomatic epilepsy and epileptic syndromes with simple partial seizures, not intractable, without status epilepticus; R64 Cachexia; Z68.1 Body mass index [BMI] 19.9 or less, adult; G89.21 Chronic pain due to trauma; J44.9 Chronic obstructive pulmonary disease, unspecified; F32.A Depression, unspecified; R53.83 Other fatigue; Z66 Do not resuscitate; I25.2 Old myocardial infarction; M54.9 Dorsalgia, unspecified; I10 Essential (primary) hypertension; D50.9 Iron deficiency anemia, unspecified; K29.70 Gastritis, unspecified, without bleeding; Z79.82 Long term (current) use of aspirin; H54.8 Legal blindness, as defined in USA; K52.9 Noninfective gastroenteritis and colitis, unspecified; K57.30 Diverticulosis of large intestine without perforation or abscess without bleeding; I73.9 Peripheral vascular disease, unspecified; L30.1 Dyshidrosis [pompholyx]; F17.210 Nicotine dependence, cigarettes, uncomplicated; E55.9 Vitamin D deficiency, unspecified; F43.10 Post-traumatic stress disorder, unspecified
CPT/HCPCS: 00123; 36415; 80053; 83690; 85652; 86850; 86900; 86901; 93005; 96365; 96366; 96375; 96376; 99291; 74174; 80329; 83735; 84484; 85014; 85018; 85025; 85610; 86140; 93010; 99236; J2270; J2405; J2470; J3010; J3490

== ENCOUNTER 2023-09-09 04:59 | Outpatient (CLI) | payer MEDICARE, SELFPAY ==
--- NOTE | 2023-09-17 13:36 | W.NOCTURNAL ---
Date of service: 09/10/23 Time of Service: 20:00 Nocturnal Oximetry Note: Patient has 13 events of desaturation between 90 and 94% and 4 events of desaturations between 85 and 89%. Of those 4 events she had a total of 7.3 minutes below 88% and the lowest O2 saturations of 87%. She qualifies for nocturnal O2
== END 2023-09-09 05:00 | disposition home or self-care (01) ==
LOC: RT 04:59
PROVIDERS: PCP Nurse Practitioner; Visit Provider Nurse Practitioner Family
DX: G47.20 Circadian rhythm sleep disorder, unspecified type (principal)
CPT/HCPCS: 00123; 94762

== ENCOUNTER 2023-10-14 11:34 | Emergency (ER) | payer MEDICARE, SELFPAY ==
[2023-10-14 11:37] VITALS: BP 209/107; PULSE 106; RESP 16; TEMP 36.8; O2SAT 98
--- NOTE | 2023-10-14 12:07 | W.ED.GENAD ---
Discharge Plan Disposition Patient Disposition: Home Condition: Improving Discharge Details Clinical Impression: COPD exacerbation Primary Care Provider: Carla Park ED Provider: Westley Ramirez Home Meds and New Rx's Prescriptions: New prednisone 20 mg tablet 20 mg PO DAILY 3 Days Qty: 3 0RF No Action naloxone [Narcan] 4 mg/actuation spray,non-aerosol 4 mg NS DAILY PRN (Reason: opioid overdose) Qty: 1 1RF albuterol sulfate 90 mcg/actuation HFA aerosol inhaler 1 - 2 inh INHALATION Q4H PRN (Reason: shortness of breath or wheezing) Qty: 8.5 12RF ferrous gluconate 236 mg (27 mg iron) tablet 236 mg PO DAILY Qty: 30 0RF oxycodone 15 mg tablet 15 mg PO Q4-5H MDD 5 tabs PRN (Reason: pain) Qty: 140 0RF Discharge Instructions Instructions: COPD Exacerbation, Adult ED Additional Instructions: Please follow-up with primary care, pulmonology team as well as palliative care team, I have placed a consultation for care management to review for any resources needed. Return to the emergency department for any worsening symptoms HPI General Date/Time Provider Initiated Documentation: 10/14/23 11:55. HPI Narrative: 77-year-old female history of smoking, presents with shortness of breath, intermittent in nature for some time has been requesting home O2 through her palliative care service, cough nonproductive. Current smoker. Related Data Home Medications ?Medication ?Instructions ?Recorded ?Confirmed naloxone 4 mg/actuation nasal 4 mg NS DAILY PRN opioid overdose 07/10/22 10/14/23 spray (Narcan) #1 ea albuterol sulfate 90 mcg/actuation 1 - 2 inh inhalation Q4H PRN 03/19/23 10/14/23 aerosol inhaler shortness of breath or wheezing #8.5 grams ferrous gluconate 236 mg (27 mg 236 mg PO DAILY #30 tabs 04/17/23 10/14/23 iron) tablet oxycodone 15 mg tablet 15 mg PO Q4-5H PRN pain #140 tabs 10/09/23 10/14/23 prednisone 20 mg tablet 20 mg PO DAILY 3 days #3 tabs 10/14/23 Previous Rx's ?Medication ?Instructions ?Recorded naloxone 4 mg/actuation nasal 4 mg NS DAILY PRN opioid overdose 07/10/22 spray (Narcan) #1 ea albuterol sulfate 90 mcg/actuation 1 - 2 inh inhalation Q4H PRN 03/19/23 aerosol inhaler shortness of breath or wheezing #8.5 grams ferrous gluconate 236 mg (27 mg 236 mg PO DAILY #30 tabs 04/17/23 iron) tablet oxycodone 15 mg tablet 15 mg PO Q4-5H PRN pain #140 tabs 10/09/23 prednisone 20 mg tablet 20 mg PO DAILY 3 days #3 tabs 10/14/23 Allergies Allergy/AdvReac Type Severity Reaction Status Date / Time Sulfa (Sulfonamide Allergy Severe Anaphylaxsi Verified 10/14/23 11:44 Antibiotics) s meperidine HCl (From Demerol) Allergy Intermediate Contraindicated, Verified 10/14/23 11:44 seizures phenytoin sodium (From Allergy Intermediate Contraindicated, Verified 10/14/23 11:44 Dilantin) seizures phenytoin sodium extended Allergy Intermediate Contraindicated, Verified 10/14/23 11:44 (From Dilantin) seizures amoxicillin Allergy Unknown unknown Verified 10/14/23 11:44 diazepam (From Valium) Allergy Unknown unknown Verified 10/14/23 11:44 hydromorphone (From Dilaudid) Allergy Unknown unknown Verified 10/14/23 11:44 morphine Allergy Other (See Verified 10/14/23 11:44 Comment) midazolam HCl (From Versed) AdvReac Intermediate Psychosis Verified 10/14/23 11:44 oxycodone AdvReac Intermediate weird and Uncoded 10/14/23 11:44 anxious feeling General Stated Complaint: SOB CRISTO: 3 Exam Narrative Exam Narrative: Alert oriented interactive Moist mucous membranes tolerating secretions Normal voice speaking full sentences no stridor Lungs clear bilaterally no wheezes rales or rhonchi appreciated Normal heart sounds no murmurs rubs or gallops No appreciable lower extremity edema Course Vital Signs Vital signs: Vital Signs Temperature 36.8 C 10/14/23 11:37 Pulse 106 H 10/14/23 11:37 Respiratory Rate 16 10/14/23 11:37 Blood Pressure 209/107 H 10/14/23 11:37 Pulse Oximetry 98 10/14/23 11:37 Temperature 36.8 C 10/14/23 11:37 Pulse 106 H 10/14/23 11:37 Respiratory Rate 16 10/14/23 11:37 Respiratory Effort Short of Breath 10/14/23 11:42 Blood Pressure 209/107 H 10/14/23 11:37 Blood Pressure Position Supine 10/14/23 11:37 Pulse Oximetry 98 10/14/23 11:37 Medical Decision Making 77-year-old female active smoker, presents with acute on chronic shortness of breath, cough nonproductive, afebrile nontoxic speaking full sentences, lungs clear bilaterally, no peripheral edema, patient refusing EKG, amenable to x-ray, will also treat with albuterol ipratropium nebs consider mild COPD exacerbation versus pneumonia versus viral URI lower suspicion for ACS PE or aortic pathology lower suspicion for CHF given history and physical. 12: 48 feeling better after albuterol/ipratropium nebs, patient has albuterol at home. Will prescribe steroid to be used at home as needed. Patient given pulmonology and care management referral given she would likely benefit from home oxygen for symptom control despite normoxia. Home care instruction return precautions given Quality:SDOH Health Related Social Needs: No Data to Display PFSH All Active Problems (Updated 10/14/23 @ 12:50 by Westley Ramirez MD) COPD exacerbation (Acute) Sleep pattern disturbance (Acute) Palliative care patient (Acute) Peripheral arterial disease (Acute) Vascular occlusion (Acute) Dyshidrosis (Acute) Chronic pain (Chronic) Depression (Chronic) Acute anemia (Acute) NSTEMI (non-ST elevated myocardial infarction) (Acute) Current smoker (Acute) Narcotic withdrawal (Acute) Anemia (Acute) Medical History Palliative care encounter Physician orders for life-sustaining treatment (POLST) form indicates patient wish for [id number] status ACP (advance care planning) Hematemesis Hypertension Nausea Acute hypokalemia COPD (chronic obstructive pulmonary disease) Respiratory failure with hypoxia Multifocal pneumonia COPD with acute exacerbation Temporal lobe epilepsy Vitamin D deficiency Late effect of pelvic fracture Cachexia PTSD (post-traumatic stress disorder) GI bleed Fatigue Helicobacter pylori gastritis Chest pain Movement disorder Loss of vision Abdominal pain Chronic, continuous use of opioids Hx of drug withdrawal syndrome Seizures Social History Smoking/Tobacco Use Status: Former Tobacco Use Quit status: has quit before Second Hand Exposure: Yes Smoking risk assessment performed?: Yes Alcohol Intake: never Drug use: Daily Substance use type: marijuana Adopted: No Caregiver/Support person: Yes Foster care: No Household members: spouse Housing: house Number of Children: 1 number of grandchildren: 0 Communication Needs: Blind Education Level: middle school Do you need help understanding health information?: Often current occupation: retired [employer] Pets and animals: Yes Pets and animals: cat(s) and dog(s) Do you think of yourself as: straight/heterosexual Current gender identity: female What is your relationship status?: How often do you talk on the phone with friends or family?: decline to answer How often do you get together with friends or relatives?: never Do you belong to any clubs or organized social groups?: no Panel score (0-1 are the most socially isolated patients): 1 Seatbelt use: always Do you feel safe at home: Yes Do you feel safe in your relationship?: Yes
--- NOTE | 2023-10-14 12:23 | DI.RAD_ITS ---
Exam(s) XR CHEST 2V PA LATERAL EXAM: XR CHEST 2V PA LATERAL CLINICAL HISTORY: sob TECHNIQUE: 2D digital imaging was performed. Two views. COMPARISON: CT CT CHEST PE CTA from 01/16/2021 FINDINGS: HEART: Normal size. Aorta: Not dilated. PULMONARY VASCULATURE: Normal. MEDIASTINUM: Unremarkable. LUNGS: Clear. PLEURAL SPACE: No pleural effusion or pneumothorax. BONE:Unremarkable for age. SOFT TISSUES: Unremarkable. IMPRESSION: No acute abnormality. DATA REPOSITORY: RADIATION DOSE DELIVERED:
[2023-10-14] MEDS: Albuterol/Ipratropium 3 ML UPD VIAL UPD (12:29)
--- NOTE | 2023-10-14 12:50 | NUR.NOTE ---
Referral faxed to Pulmonary for follow up to ER visit, Low Air/Home Oxygen as soon as available A referral was given to Care Management to help with this process also. .
[2023-10-14] MEDS: predniSONE 20 MG TAB PO (13:02)
== END 2023-10-14 13:07 | disposition home or self-care (01) ==
PROVIDERS: Emergency Provider Emergency Medicine; PCP Nurse Practitioner
DX: J44.1 Chronic obstructive pulmonary disease with (acute) exacerbation (principal)
CPT/HCPCS: 94640; 99284; 71046; J7512; J7620

== ENCOUNTER 2023-10-16 09:24 | Emergency (ER) | payer MEDICARE, SELFPAY ==
[2023-10-16 09:28] VITALS: BP 217/84; PULSE 69; RESP 24; TEMP 36.6; O2SAT 96
[2023-10-16] MEDS: Albuterol/Ipratropium 3 ML UPD VIAL UPD ×3 (10:01)
[2023-10-16 10:24] LABS: Abs Immature Grans 0.01 10^3/uL (0.0-0.06); Absolute Basophil Count 0.03 10^3/uL (0.0-0.2); Absolute Eosinophil Count 0.51 10^3/uL (0.0-0.7); Absolute Lymphocyte Count 1.36 10^3/uL (1.2-3.4); Absolute Monocyte Count 0.59 10^3/uL (0.1-0.8); Basophils % 0.4 %; Eosinophils % 7.6 %; HCT 37.5 % (36.0-46.0); HGB 11.7 g/dL (11.2-15.7); Immature Grans % 0.1 %; Lymphocytes % 20.3 %; MCH 25.1 pg (27.0-33.0); MCHC 31.2 % (32.0-36.0); MCV 81 fL (80-95); MPV 8.5 fL (8.0-11.0); Monocytes % 8.8 %; Neutrophils % 62.8 %; Platelet Count 333 10^3/uL (130-400); RBC 4.66 10^6/uL (3.93-5.22); RDW 19.1 % (11.7-14.6)
[2023-10-16 10:52] LABS: ALT 8 U/L (14-59); AST 9 U/L (15-37); Albumin 3.1 g/dL (3.4-5.0); Alkaline Phosphatase 87 U/L (46-116); Anion Gap 9.3 mmol/L (3-11); BUN 19 mg/dL (7-18); Bilirubin, Total 0.15 mg/dL (0.2-1.0); CO2 23.7 mmol/L (21.0-32.0); Calcium 8.8 mg/dL (8.5-10.1); Chloride 107 mmol/L (98-107); Estimated GFR 57.31 (mL/min/1.73m2); Glucose 95 mg/dL (74-106); Potassium 3.6 mmol/L (3.5-5.1); Sodium 140 mmol/L (136-145); Total Protein 7.1 g/dL (6.4-8.2)
[2023-10-16] MEDS: predniSONE 20 MG TAB 200 MG PO (12:18)
--- NOTE | 2023-10-16 16:26 | ED.GENADUL_ITS ---
Discharge Plan Disposition Patient Disposition: Against Medical Advice Discharge Details Clinical Impression: Current smoker, COPD exacerbation, Non compliance w medication regimen Primary Care Provider: Carla Park ED Provider: Pam Sanchez Home Meds and New Rx's Prescriptions: No Action naloxone [Narcan] 4 mg/actuation spray,non-aerosol 4 mg NS DAILY PRN (Reason: opioid overdose) Qty: 1 1RF albuterol sulfate 90 mcg/actuation HFA aerosol inhaler 1 - 2 inh INHALATION Q4H PRN (Reason: shortness of breath or wheezing) Qty: 8.5 12RF ferrous gluconate 236 mg (27 mg iron) tablet 236 mg PO DAILY Qty: 30 0RF oxycodone 15 mg tablet 15 mg PO Q4-5H MDD 5 tabs PRN (Reason: pain) Qty: 140 0RF prednisone 20 mg tablet 20 mg PO DAILY 3 Days Qty: 3 0RF Discharge Instructions Additional Instructions: * Today you have refused EKG, IV placement and medications * Your oxygen level has been low but you did improve with breathing treatments * You were prescribed medication that was sent to your pharmacy during your last visit that you have not filled this medication. It is recommended that you start your prednisone. * If you would like to resume appropriate medical care for your ongoing chronic symptoms, please return to the emergency department Discharge Data Discharge Date/Time-TO BE ENTERED AT DEPARTURE: 10/16/23 11:42 HPI General Date/Time Provider Initiated Documentation: 10/16/23 09:43 . Limitations to Documentation: no limitations . Information obtained by: patient . HPI Narrative: 77-year-old female with past medical history of COPD, tobacco abuse, NSTEMI presents for evaluation of persistent shortness of breath. She reports that she was recently evaluated in the emergency department and prescribed steroids, but she was not able to pick them up from the pharmacy. She reports that she does not have nebulizer or spacer at home but has been using her albuterol inhaler 2 to 3 puffs every 6 hours. She states that she does not have oxygen at home denies any chest pain. She reports that her symptoms are secondary to the warts that are ongoing around the world creating particulates that are entering her lungs. Related Data Home Medications ?Medication ?Instructions ?Recorded ?Confirmed naloxone 4 mg/actuation nasal 4 mg NS DAILY PRN opioid overdose 07/10/22 10/16/23 spray (Narcan) #1 ea albuterol sulfate 90 mcg/actuation 1 - 2 inh inhalation Q4H PRN 03/19/23 10/16/23 aerosol inhaler shortness of breath or wheezing #8.5 grams ferrous gluconate 236 mg (27 mg 236 mg PO DAILY #30 tabs 04/17/23 10/16/23 iron) tablet oxycodone 15 mg tablet 15 mg PO Q4-5H PRN pain #140 tabs 10/09/23 10/16/23 prednisone 20 mg tablet 20 mg PO DAILY 3 days #3 tabs 10/14/23 10/16/23 Previous Rx's ?Medication ?Instructions ?Recorded naloxone 4 mg/actuation nasal 4 mg NS DAILY PRN opioid overdose 07/10/22 spray (Narcan) #1 ea albuterol sulfate 90 mcg/actuation 1 - 2 inh inhalation Q4H PRN 03/19/23 aerosol inhaler shortness of breath or wheezing #8.5 grams ferrous gluconate 236 mg (27 mg 236 mg PO DAILY #30 tabs 04/17/23 iron) tablet oxycodone 15 mg tablet 15 mg PO Q4-5H PRN pain #140 tabs 10/09/23 prednisone 20 mg tablet 20 mg PO DAILY 3 days #3 tabs 10/14/23 Allergies Allergy/AdvReac Type Severity Reaction Status Date / Time Sulfa (Sulfonamide Allergy Severe Anaphylaxsi Verified 10/16/23 09:39 Antibiotics) s meperidine HCl (From Demerol) Allergy Intermediate Contraindicated, Verified 10/16/23 09:39 seizures phenytoin sodium (From Allergy Intermediate Contraindicated, Verified 10/16/23 09:39 Dilantin) seizures phenytoin sodium extended Allergy Intermediate Contraindicated, Verified 10/16/23 09:39 (From Dilantin) seizures amoxicillin Allergy Unknown unknown Verified 10/16/23 09:39 diazepam (From Valium) Allergy Unknown unknown Verified 10/16/23 09:39 hydromorphone (From Dilaudid) Allergy Unknown unknown Verified 10/16/23 09:39 morphine Allergy Other (See Verified 10/16/23 09:39 Comment) midazolam HCl (From Versed) AdvReac Intermediate Psychosis Verified 10/16/23 09:39 oxycodone AdvReac Intermediate weird and Uncoded 10/16/23 09:39 anxious feeling General Stated Complaint: SOB CRISTO: 3 Exam Narrative Exam Narrative: Review of Systems: All systems reviewed & are unremarkable except as noted in HPI and below Well-developed, no acute distress NCAT No murmur Mild tachypnea, hypoxia in the 80s noted, diminished air movement throughout Nondistended abdomen Extremities w/o deformity, no cyanosis, no edema Course Vital Signs Vital signs: Vital Signs Temperature 36.6 C 10/16/23 09:28 Pulse 69 10/16/23 09:28 Respiratory Rate 24 10/16/23 09:28 Blood Pressure 217/84 H 10/16/23 09:28 Pulse Oximetry 96 10/16/23 09:28 Temperature 36.6 C 10/16/23 09:28 Temperature Source Oral 10/16/23 09:28 Pulse 69 10/16/23 09:28 Respiratory Rate 24 10/16/23 09:28 Respiratory Effort Short of Breath 10/16/23 10:08 Respiratory Depth Deep 10/16/23 10:08 Respiratory Pattern Irregular 10/16/23 10:08 Blood Pressure 217/84 H 10/16/23 09:28 Blood Pressure Position Sitting 10/16/23 09:28 Pulse Oximetry 96 10/16/23 09:28 Oxygen Delivery Method Room Air 10/16/23 09:28 Oxygen Flow Rate 0 10/16/23 09:28 Pain Level 0 10/16/23 09:28 Lab/Test Results Lab/Test Results: Laboratory Tests Range/Units 10/16/23 10/16/23 09:43 10:20 WBC (4.4-10.8) 10^3/uL 6.70 RBC (3.93-5.22) 10^6/uL 4.66 Hgb (11.2-15.7) g/dL 11.7 Hct (36.0-46.0) % 37.5 MCV (80-95) fL 81 MCH (27.0-33.0) pg 25.1 L MCHC (32.0-36.0) % 31.2 L RDW (11.7-14.6) % 19.1 H Plt Count (130-400) 10^3/uL 333 MPV (8.0-11.0) fL 8.5 Immature Gran % % 0.1 Neutrophils % % 62.8 Lymphocytes % % 20.3 Monocytes % % 8.8 Eosinophils % % 7.6 Basophils % % 0.4 Nucleated RBC % (0.0-0.3) % 0.0 Absolute Neutrophils (1.2-6.7) 10^3/uL 4.20 Absolute Lymphocytes (1.2-3.4) 10^3/uL 1.36 Absolute Monocytes (0.1-0.8) 10^3/uL 0.59 Absolute Eosinophils (0.0-0.7) 10^3/uL 0.51 Absolute Basophils (0.0-0.2) 10^3/uL 0.03 Sodium (136-145) mmol/L 140 Potassium (3.5-5.1) mmol/L 3.6 Chloride (98-107) mmol/L 107 Carbon Dioxide (21.0-32.0) mmol/L 23.7 Anion Gap (3-11) mmol/L 9.3 BUN (7-18) mg/dL 19 H Creatinine (0.55-1.02) mg/dL 1.0 Est GFR (CKD-EPI 2020) (mL/min/1.73m2) 57.31 Glucose (74-106) mg/dL 95 Calcium (8.5-10.1) mg/dL 8.8 Magnesium (1.8-2.4) mg/dL 2.0 Total Bilirubin (0.2-1.0) mg/dL 0.15 L AST (15-37) U/L 9 L ALT (14-59) U/L 8 L Alkaline Phosphatase (46-116) U/L 87 Troponin I Cancelled Total Protein (6.4-8.2) g/dL 7.1 Albumin (3.4-5.0) g/dL 3.1 L Medical Decision Making Emergent evaluation of shortness of breath and difficulty breathing. Patient has ongoing history of COPD and continues to smoke. Based on my evaluation of the patient and her medical record, it seems that she is generally noncompliant with recommended care. She has refused EKG, she is refusing cardiac leads, she is refusing IV placement. She repeatedly uses the F word to the nurses. Blood was able to be drawn. She is refusing chest x-ray. DuoNebs were given, that did improve her hypoxia and her breath sounds. I reviewed the patient's medical record and noted that it seems like she supposed to have oxygen at home. I discussed with resident care associate who referred me to the respiratory therapy. Respiratory therapy states that her oxygen arrangement is being set up through palliative care. That provider is out of town until next week. But patient has refused a lot of the outpatient workup for getting home oxygen. The patient h as become pretty agitated in the ER and came into the nurses station screaming to see a doctor because no one was doing anything for her and we were all fucking worthless. The patient then went back to her room got dressed and decided to leave. The laborer cook house did talk to the patient and the only thing that she wants is for oral steroids. Even though prescription was sent to the pharmacy after her previous emergency department visit, I did dispense 5 days of 40 mg prednisone from the emergency department to give to the patient. She understands that she can return to the emergency department at any time to resume any medical care. And I urged close follow-up with her PCP and palliative care Quality:SDOH Health Related Social Needs: No Data to Display PFSH All Active Problems (Updated 10/16/23 @ 11:36 by Pam Sanchez MD) Non compliance w medication regimen (Acute) COPD exacerbation (Acute) Sleep pattern disturbance (Acute) Palliative care patient (Acute) Peripheral arterial disease (Acute) Vascular occlusion (Acute) Dyshidrosis (Acute) Chronic pain (Chronic) Depression (Chronic) Acute anemia (Acute) NSTEMI (non-ST elevated myocardial infarction) (Acute) Current smoker (Acute) Narcotic withdrawal (Acute) Anemia (Acute) Medical History Palliative care encounter Physician orders for life-sustaining treatment (POLST) form indicates patient wish for dn-yai-eelwxjsgyzm status ACP (advance care planning) Hematemesis Hypertension Nausea Acute hypokalemia COPD (chronic obstructive pulmonary disease) Respiratory failure with hypoxia Multifocal pneumonia COPD with acute exacerbation Temporal lobe epilepsy Vitamin D deficiency Late effect of pelvic fracture Cachexia PTSD (post-traumatic stress disorder) GI bleed Fatigue Helicobacter pylori gastritis Chest pain Movement disorder Loss of vision Abdominal pain Chronic, continuous use of opioids Hx of drug withdrawal syndrome Seizures Social History Smoking/Tobacco Use Status: Former Tobacco Use Quit status: has quit before Second Hand Exposure: Yes Smoking risk assessment performed?: Yes Alcohol Intake: never Drug use: Daily Substance use type: marijuana Adopted: No Caregiver/Support person: Yes Foster care: No Household members: spouse Housing: house Number of Children: 1 number of grandchildren: 0 Communication Needs: Blind Education Level: middle school Do you need help understanding health information?: Often current occupation: retired [employer] Pets and animals: Yes Pets and animals: cat(s) and dog(s) Do you think of yourself as: straight/heterosexual Current gender identity: female What is your relationship status?: How often do you talk on the phone with friends or family?: decline to answer How often do you get together with friends or relatives?: never Do you belong to any clubs or organized social groups?: no Panel score (0-1 are the most socially isolated patients): 1 Seatbelt use: always Do you feel safe at home: Yes Do you feel safe in your relationship?: Yes
== END 2023-10-16 11:42 | disposition left against medical advice (07) ==
PROVIDERS: Emergency Provider Emergency Medicine; PCP Nurse Practitioner
DX: J44.1 Chronic obstructive pulmonary disease with (acute) exacerbation (principal); I10 Essential (primary) hypertension; I25.2 Old myocardial infarction; F17.210 Nicotine dependence, cigarettes, uncomplicated; Z91.128 Patient's intentional underdosing of medication regimen for other reason; Z91.198 Patient's noncompliance with other medical treatment and regimen for other reason; Z53.29 Procedure and treatment not carried out because of patient's decision for other reasons
CPT/HCPCS: 36415; 80053; 94640; 99284; 83735; 84484; 85025; J2919; J7512; J7620

== ENCOUNTER 2023-11-07 01:36 | Outpatient (CLI) | payer MEDICARE, SELFPAY | END 2023-11-07 01:37 | disposition home or self-care (01) | LOC: RT 01:36 | PROVIDERS: PCP Nurse Practitioner; Visit Provider Nurse Practitioner Family | DX: J44.9 Chronic obstructive pulmonary disease, unspecified (principal) | CPT/HCPCS: 94762 ==

== ENCOUNTER → 2023-11-12 12:43 | Outpatient (BNVA) | payer MEDICARE, SELFPAY | PROVIDERS: PCP Nurse Practitioner; Referring Provider Nurse Practitioner; Visit Provider Internal Medicine | DX: R06.09 Other forms of dyspnea (principal); F17.200 Nicotine dependence, unspecified, uncomplicated; F11.90 Opioid use, unspecified, uncomplicated | CPT/HCPCS: 99214 ==

== ENCOUNTER 2023-12-23 02:15 | Emergency (ER) | payer MEDICARE, SELFPAY ==
[2023-12-23] VITALS (11 sets, daily range): BP systolic 180–211; BP diastolic 84–118; PULSE 90–113; RESP 14–30; TEMP 36.6; O2SAT 99–100
--- NOTE | 2023-12-23 02:15 | RT.EKG_ITS ---
APPROVED REPORT Exam: Resting ECG Reason for Exam: weakness Patient Location: E HR:101 bpm ECG Measurements Heart Rate 101 AXIS CA 161 P 89 QRSd 80 QRS -7 QT 393 T 86 QTc 511 Conclusion Sinus tachycardia...rate> 99 Anterior infarct, old...Q >40mS, abnormal ST-T, V2-V5 Prolonged QT interval...QTc >500mS I have reviewed and interpreted ECG and agree with software generated interpretation. No significant change from 03/2023 EKGs except for prolong QTc.
--- NOTE | 2023-12-23 02:18 | ED.GENADUL_ITS ---
Discharge Plan Disposition Patient Disposition: Home Condition: Improving Discharge Details Clinical Impression: Nausea and vomiting Primary Care Provider: Carla Park ED Provider: Santos Lott Loiza Meds and New Rx's Prescriptions: New prochlorperazine maleate 5 mg tablet 5 mg PO QID PRN (Reason: nausea and vomiting) Qty: 10 0RF Continued Excedrin Extra Strength 250-250-65 mg tablet 1 tab PO BID naloxone [Narcan] 4 mg/actuation spray,non-aerosol 4 mg NS DAILY PRN (Reason: opioid overdose) Qty: 1 1RF ipratropium-albuterol 0.5 mg-3 mg(2.5 mg base)/3 mL solution for nebulization 3 ml inhalation Q6H PRN (Reason: wheezing) Qty: 90 3RF albuterol sulfate 90 mcg/actuation HFA aerosol inhaler 1 - 2 inh INHALATION Q4H PRN (Reason: shortness of breath or wheezing) Qty: 8.5 12RF oxycodone 15 mg tablet 15 mg PO Q4-5H MDD 5 tabs PRN (Reason: pain) Qty: 140 0RF ferrous gluconate 236 mg (27 mg iron) tablet 236 mg PO DAILY Qty: 30 0RF Discharge Instructions Instructions: Nausea and Vomiting, Adult ED Additional Instructions: You were seen in the ED for nausea and vomiting as well as exacerbation of your chronic pain likely related to not being able to keep down your pain medication. You have been provided a prescription for prochlorperazine for recurrent nausea vomiting. Would stick with a clear liquid/bland diet for today. Follow- up with your primary care physician. Return to ED for persistent vomiting, worsening abdominal pain, black or bloody stool, syncope, other concerns. Referrals: Carla Park, MANUFACTURING PROCESS ENGINEER [Primary Care Provider] - [facility] General Mode of arrival: EMS . Date/Time Provider Initiated Documentation: 12/23/23 02:18 . Limitations to Documentation: no limitations . Information obtained by: patient, RN notes reviewed and old records reviewed . HPI Narrative: Patient presenting to ED from home with complaint of nausea and vomiting most of the afternoon and evening. Patient reports a few episodes of diarrhea. She denies any new abdominal pain. States that she has chronic abdominal pain which is unchanged. However, she also reports that she has not been able to take her oral pain medication since first thing this morning. She denies chest pain or shortness of breath currently. Denies any fever. She is followed by primary care as well as palliative care. She reports she has had similar issues like this in the past. Related Data Home Medications ?Medication ?Instructions ?Recorded ?Confirmed naloxone 4 mg/actuation nasal 4 mg NS DAILY PRN opioid overdose 07/10/22 12/23/23 spray (Narcan) #1 ea ferrous gluconate 236 mg (27 mg 236 mg PO DAILY #30 tabs 04/17/23 12/23/23 iron) tablet albuterol sulfate 90 mcg/actuation 1 - 2 inh inhalation Q4H PRN 10/22/23 12/23/23 aerosol inhaler shortness of breath or wheezing #8.5 grams ipratropium 0.5 mg-albuterol 3 mg 3 ml inhalation Q6H PRN wheezing 10/22/23 12/23/23 (2.5 mg base)/3 mL nebulization #90 mL soln oxycodone 15 mg tablet 15 mg PO Q4-5H PRN pain #140 tabs 10/22/23 12/23/23 [id number] 250 1 tab PO BID 11/21/23 12/23/23 mg-250 mg-65 mg tablet (Excedrin Extra Strength) prochlorperazine maleate 5 mg 5 mg PO QID PRN nausea and 12/23/23 tablet vomiting #10 tabs Previous Rx's ?Medication ?Instructions ?Recorded naloxone 4 mg/actuation nasal 4 mg NS DAILY PRN opioid overdose 07/10/22 spray (Narcan) #1 ea ferrous gluconate 236 mg (27 mg 236 mg PO DAILY #30 tabs 04/17/23 iron) tablet albuterol sulfate 90 mcg/actuation 1 - 2 inh inhalation Q4H PRN 10/22/23 aerosol inhaler shortness of breath or wheezing #8.5 grams ipratropium 0.5 mg-albuterol 3 mg 3 ml inhalation Q6H PRN wheezing 10/22/23 (2.5 mg base)/3 mL nebulization #90 mL soln oxycodone 15 mg tablet 15 mg PO Q4-5H PRN pain #140 tabs 10/22/23 prochlorperazine maleate 5 mg 5 mg PO QID PRN nausea and 12/23/23 tablet vomiting #10 tabs Allergies Allergy/AdvReac Type Severity Reaction Status Date / Time Sulfa (Sulfonamide Allergy Severe Anaphylaxsi Verified 12/23/23 02:25 Antibiotics) s meperidine HCl (From Demerol) Allergy Intermediate Contraindicated, Verified 12/23/23 02:25 seizures phenytoin sodium (From Allergy Intermediate Contraindicated, Verified 12/23/23 02:25 Dilantin) seizures phenytoin sodium extended Allergy Intermediate Contraindicated, Verified 12/23/23 02:25 (From Dilantin) seizures amoxicillin Allergy Unknown unknown Verified 12/23/23 02:25 diazepam (From Valium) Allergy Unknown unknown Verified 12/23/23 02:25 hydromorphone (From Dilaudid) Allergy Unknown unknown Verified 12/23/23 02:25 morphine Allergy Other (See Verified 12/23/23 02:25 Comment) midazolam HCl (From Versed) AdvReac Intermediate Psychosis Verified 12/23/23 02:25 oxycodone AdvReac Intermediate weird and Uncoded 12/23/23 02:25 anxious feeling General CRISTO: 3 Review of Systems Narrative: Per HPI Exam Narrative Exam Narrative: Const: Very cachectic, elderly female in NAD. VS per triage. HEENT: NC/AT. Normal facial exam. Neck: Supple. Trachea midline. Lungs: Mild increased work of breathing consistent with chronic COPD. Lungs without significant wheezing tonight. Cor: RRR without murmur. Good radial pulses. GI: Soft/ND/NT. Neuro: A+O x 3. Normal speech, mentation. Cranial nerves II - XII grossly intact. No gross motor or sensory deficit. Ext: No C/C/E. Medical Decision Making Patient presenting to ED with complaint of nausea and vomiting. She denies any new abdominal pain, reports chronic abdominal pain. Denies any chest pain or shortness of breath tonight. Reports not being able to take her oral pain medications since early this morning. Has had episodes similar to this in the past. Most recent palliative care note reports that she requested increase in pain medications. Consider opiate withdrawal as patient is tachycardic, hypertensive, vomiting and diarrhea with a benign abdomen. Patient has previously been uncooperative per ED records. Tonight did refuse the fluid. We were able to get an IV in and obtain labs. She was given ondansetron. After further discussion with the patient did agree to give her a single dose of fentanyl which she reports she does tolerate. Reports having allergies to morphine and hydromorphone. Did vomit up reddish material but states she has been drinking Agustín-Aid. However, on Gastroccult testing there was faint blue color change suggesting positive blood. Potentially related to Bernarda-Ch given her reported multiple episodes of vomiting. Patient's EKG is sinus tachycardia with nonspecific ST changes which are not significantly different than previous. She does have prolonged QT tonight. Laboratory studies show a normal white count and hemoglobin. Electrolytes normal with a slight anion gap of 13.2. Kidney function is baseline. Liver function and lipase normal. Troponin normal. Patient still with nausea and occasional dry heaves. Given her prolonged QT no further ondansetron given. Prochlorperazine given. Plan to repeat H&H at 6 AM. Once nausea vomiting under control will also give her oral dose of pain medication. Patient tolerated her oral pain medication. She has tolerated juice. Her repeat hemoglobin is unchanged. She can be discharged home to follow-up with primary care. Will provide prescription for prochlorperazine for recurrent nausea vomiting. Return precautions provided. Medical Records Medical records reviewed: Yes I reviewed the patient's medical records. Medical records narrative: Recent ED records, most recent palliative care record Lab Data Lab results reviewed: Yes I reviewed the patient's lab results. Lab results narrative: See [facility] ECG Data Attestation: I personally reviewed and interpreted this ECG (s) as follows: Prior ECG tracings: available for review Interpretation: See MDM/EKG [facility] All Active Problems (Updated 12/23/23 @ 06:06 by Santos Lott MD) Nausea and vomiting (Acute) Fatigue (Acute) Nausea (Acute) Palliative care encounter (Acute) GERD (gastroesophageal reflux disease) (Chronic) Unintentional weight loss (Acute) Impaired instrumental activities of daily living (Acute) Dyspnea on exertion (Acute) History of sleep study (Acute) Sleep pattern disturbance (Acute) Palliative care patient (Acute) Vascular occlusion (Acute) Dyshidrosis (Acute) Chronic pain (Chronic) Depression (Chronic) Current smoker (Acute) Narcotic withdrawal (Acute) Anemia (Acute) Medical History NSTEMI (non-ST elevated myocardial infarction) Peripheral arterial disease Physician orders for life-sustaining treatment (POLST) form indicates patient wish for vr-dcd-[id number] status ACP (advance care planning) Hematemesis Hypertension COPD (chronic obstructive pulmonary disease) Respiratory failure with hypoxia Temporal lobe epilepsy Vitamin D deficiency Late effect of pelvic fracture Cachexia PTSD (post-traumatic stress disorder) GI bleed Helicobacter pylori gastritis Movement disorder Loss of vision Abdominal pain Chronic, continuous use of opioids Hx of drug withdrawal syndrome Seizures Social History Smoking/Tobacco Use Status: Former Tobacco Use Quit status: has quit before Second Hand Exposure: Yes Smoking risk assessment performed?: Yes Alcohol Intake: never Drug use: Daily Substance use type: marijuana Adopted: No Caregiver/Support person: Yes Foster care: No Household members: spouse Housing: house Number of Children: 1 number of grandchildren: 0 Communication Needs: Blind Education Level: middle school Do you need help understanding health information?: Often current occupation: retired [employer] Pets and animals: Yes Pets and animals: cat(s) and dog(s) Do you think of yourself as: straight/heterosexual Current gender identity: female What is your relationship status?: How often do you talk on the phone with friends or family?: decline to answer How often do you get together with friends or relatives?: never Do you belong to any clubs or organized social groups?: no Panel score (0-1 are the most socially isolated patients): 1 Seatbelt use: always Do you feel safe at home: Yes Do you feel safe in your relationship?: Yes
[2023-12-23 02:53] LABS: ALT 14 U/L (14-59); AST 16 U/L (15-37); Abs Immature Grans 0.02 10^3/uL (0.0-0.06); Absolute Basophil Count 0.02 10^3/uL (0.0-0.2); Absolute Eosinophil Count 0.01 10^3/uL (0.0-0.7); Absolute Lymphocyte Count 0.83 10^3/uL (1.2-3.4); Absolute Monocyte Count 0.18 10^3/uL (0.1-0.8); Absolute Neutrophil Count 8.58 10^3/uL (1.2-6.7); Albumin 4.2 g/dL (3.4-5.0); Alkaline Phosphatase 109 U/L (46-116); Anion Gap 13.2 mmol/L (3-11); BUN 19 mg/dL (7-18); Basophils % 0.2 %; Bilirubin, Total 0.31 mg/dL (0.2-1.0); CO2 24.8 mmol/L (21.0-32.0); CREATININE 1.1 mg/dL (0.55-1.02); Calcium 9.8 mg/dL (8.5-10.1); Chloride 104 mmol/L (98-107); Eosinophils % 0.1 %; Estimated GFR 51.11 (mL/min/1.73m2); Glucose 198 mg/dL (74-106); HCT 43.2 % (36.0-46.0); Immature Grans % 0.2 %; Lymphocytes % 8.6 %; MCH 26.3 pg (27.0-33.0); MCHC 32.4 % (32.0-36.0); MCV 81 fL (80-95); MPV 9.1 fL (8.0-11.0); Magnesium 1.8 mg/dL (1.8-2.4); Monocytes % 1.9 %; Platelet Count 494 10^3/uL (130-400); Potassium 3.9 mmol/L (3.5-5.1); RBC 5.32 10^6/uL (3.93-5.22); RDW 17.1 % (11.7-14.6); RDW-SD 50.2 fL; Sodium 142 mmol/L (136-145); Total Protein 8.6 g/dL (6.4-8.2); WBC 9.64 10^3/uL (4.4-10.8)
[2023-12-23 02:57] LABS: Lipase 32 U/L (16-77); Troponin I 9 ng/L (<or=51)
--- NOTE | 2023-12-23 03:11 | NUR.NOTE ---
0311: This RN to pt bedside d/t pt yelling and screaming in room. Pt has been refusing majority of testing appropriate for assessing chief complaint, and requesting fentanyl, stated to this RN 'All you do is push test after test, it's not real medicine'. Pt very agitated and yelling at this RN I need something for all this pain. Give it to me give it to me fast! RN offered education on reasoning behind various tests and explained that we were awaiting an MD order and inquired after some pt's listed narcotic allergies to ascertain reaction. At this point pt became very hostile 'I don't like your tone. You're antagonistic and it's fucking pissing me off. Get out'. This RN re-iterated desire for pt's safety and well being, and re-oriented pt to call [facility]. MD Lott aware.
[2023-12-23] MEDS: Ondansetron 4 MG/2 ML VIAL IVP (03:16)
[2023-12-23] MEDS: fentaNYL 100 MCG/2 ML VIAL 50 MCG IVP (03:16)
[2023-12-23] MEDS: Prochlorperazine 10 MG/2 ML VIAL 5 MG IVP (03:56)
[2023-12-23] MEDS: Normal Saline 50 ML 250 ML (03:56)
--- NOTE | 2023-12-23 04:31 | NUR.NOTE ---
Pt continues to leave her room and wander around the ED, continually asks for pain medications, she refuses tests, states we aren't doing anything for her, she has been given medications for pain and multiple medications for nausea but continues to ask for more, LUZMA
--- NOTE | 2023-12-23 04:31 | NUR.NOTE ---
Nursing Note: PT told staff she does not want her vs taken and is refusing care.
[2023-12-23] MEDS: oxyCODONE 5 MG TAB (04:47)
[2023-12-23 05:58] LABS: HCT 42.7 % (36.0-46.0); HGB 13.7 g/dL (11.2-15.7)
== END 2023-12-23 06:56 | disposition home or self-care (01) ==
PROVIDERS: Emergency Provider Emergency Medicine; PCP Nurse Practitioner
DX: R11.2 Nausea with vomiting, unspecified (principal); R94.31 Abnormal electrocardiogram [ECG] [EKG]; I10 Essential (primary) hypertension; I25.2 Old myocardial infarction; J44.9 Chronic obstructive pulmonary disease, unspecified; Z87.891 Personal history of nicotine dependence
CPT/HCPCS: 80053; 83690; 87637; 93005; 96374; 96375; 99284; 83735; 84484; 85014; 85018; 85025; 93010; J0780; J2405; J3010

== ENCOUNTER 2024-01-21 16:00 | Inpatient (IN) | payer OTHER, SELFPAY ==
[2024-01-21 16:30] VITALS: BP 206/100; PULSE 100; RESP 20; TEMP 37.7; O2SAT 100
--- NOTE | 2024-01-21 16:55 | HPE_ITS ---
Date of service: 01/21/24 Time of Service: 16:55 Assessment and Plan Assessment and plan (1) Comfort measures only status: Status: Acute (2) Protein calorie malnutrition: Status: Acute (3) Nausea and vomiting: Status: Acute (4) Unintentional weight loss: Status: Acute (5) Dyspnea on exertion: Status: Acute (6) PTSD (post-traumatic stress disorder): (7) Cachexia: (8) Opioid withdrawal: Status: Acute (9) COPD (chronic obstructive pulmonary disease): (10) Hospice care patient: Status: Acute Assessment and plan: Scott is on hospice for protein-calorie malnutrition/unintentional weight loss. She was not interested in diagnostics to investigate the cause of her weight loss and abdominal pain. She also has a history of abdominal pain. It has been difficult to manage her pain at home. She has a significant trauma history with PTSD, which likely exacerbates her symptoms. She was on oral pain medication and transitioned to fentanyl patch. The patch dose was increased and she initially had good pain control, however, when her hospice nurse went to visit yesterday Den did not feel the patch was working and had removed it. Her pain was uncontrolled and her nurse was concerned that she was experiencing withdrawal. She was agitated, anxious, restless and had nausea with vomiting. Her symptoms were completely out of control and the decision was made to admit her to [facility] for hospice symptom management for pain control and treatment of withdrawal. She was initially started on subcutaneous hydromorphone pump. She required IV hydromorphone for abdominal pain prior to the initiation of the pump. She was also nauseated and vomiting at the time of admission and required zofran, IV lorazepam and haloperidol to manage her symptoms. She had a BM yesterday. She has had limited PO intake due to abdominal pain. She is admitted to [facility] for Hospice symptom management. History of Present Illness Narrative: Scott is on hospice for protein-calorie malnutrition/unintentional weight loss. She was not interested in diagnostics to investigate the cause of her weight loss and abdominal pain. She also has a history of abdominal pain. It has been difficult to manage her pain at home. She was on oral pain medication and transitioned to fentanyl patch. The patch dose was increased and she initially had good pain control, however, when her hospice nurse went to visit yesterday Den did not feel the patch was working and had removed it. Her pain was uncontrolled and her nurse was concerned that she was experiencing withdrawal. She was agitated, anxious, restless and had nausea with vomiting. Her symptoms were completely out of control and the decision was made to admit her to [facility] for hospice symptom management. She was initially started on subcutaneous hydromorphone pump. She required IV hydromorphone for abdominal pain prior to the initiation of the pump. She was also nauseated and vomiting at the time of admission and required zofran, IV lorazepam and haloperidol to manage her symptoms. She had a BM yesterday. She has had limited PO intake due to abdominal pain. She is admitted to [facility] for Hospice symptom management. Review of Systems Narrative: Per HPI PFSH All Active Problems (Updated 01/22/24 @ 12:22 by Ayesha Rehman NP) Comfort measures only status (Acute) Opioid withdrawal (Acute) Hospice care patient (Acute) Opioid dependence with current use (Acute) Opiate misuse (Acute) Protein calorie malnutrition (Acute) Encounter for hospice care discussion (Acute) Nausea and vomiting (Acute) Fatigue (Acute) Nausea (Acute) Palliative care encounter (Acute) GERD (gastroesophageal reflux disease) (Chronic) Unintentional weight loss (Acute) Impaired instrumental activities of daily living (Acute) Dyspnea on exertion (Acute) History of sleep study (Acute) Sleep pattern disturbance (Acute) Palliative care patient (Acute) Vascular occlusion (Acute) Dyshidrosis (Acute) Chronic pain (Chronic) Depression (Chronic) Current smoker (Acute) Narcotic withdrawal (Acute) Anemia (Acute) Medical History NSTEMI (non-ST elevated myocardial infarction) Peripheral arterial disease Physician orders for life-sustaining treatment (POLST) form indicates patient wish for to-[id number]-giklbeeuppl status ACP (advance care planning) Hematemesis Hypertension COPD (chronic obstructive pulmonary disease) Respiratory failure with hypoxia Temporal lobe epilepsy Vitamin D deficiency Late effect of pelvic fracture Cachexia PTSD (post-traumatic stress disorder) GI bleed Helicobacter pylori gastritis Movement disorder Loss of vision Abdominal pain Chronic, continuous use of opioids Hx of drug withdrawal syndrome Seizures Social History Smoking/Tobacco Use Status: Former Tobacco Use Quit status: has quit before Second Hand Exposure: Yes Smoking risk assessment performed?: Yes Alcohol Intake: never Drug use: Daily Substance use type: marijuana Adopted: No Caregiver/Support person: Yes Foster care: No Household members: spouse Housing: house Number of Children: 1 number of grandchildren: 0 Communication Needs: Blind Education Level: middle school Do you need help understanding health information?: Often 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 Pets and animals: Yes Pets and animals: cat(s) and dog(s) Do you think of yourself as: straight/heterosexual Current gender identity: female What is your relationship status?: How often do you talk on the phone with friends or family?: decline to answer How often do you get together with friends or relatives?: never Do you belong to any clubs or organized social groups?: no Panel score (0-1 are the most socially isolated patients): 1 Seatbelt use: always Do you feel safe at home: Yes Do you feel safe in your relationship?: Yes Meds Allergies and Home Medications Allergies Allergy/AdvReac Type Severity Reaction Status Date / Time Sulfa (Sulfonamide Allergy Severe Anaphylaxsi Verified 12/23/23 02:25 Antibiotics) s meperidine HCl (From Demerol) Allergy Intermediate Contraindicated, Verified 12/23/23 02:25 seizures phenytoin sodium (From Allergy Intermediate Contraindicated, Verified 12/23/23 02:25 Dilantin) seizures phenytoin sodium extended Allergy Intermediate Contraindicated, Verified 12/23/23 02:25 (From Dilantin) seizures amoxicillin Allergy Unknown unknown Verified 12/23/23 02:25 diazepam (From Valium) Allergy Unknown unknown Verified 12/23/23 02:25 hydromorphone (From Dilaudid) Allergy Unknown unknown Verified 12/23/23 02:25 morphine Allergy Other (See Verified 12/23/23 02:25 Comment) midazolam HCl (From Versed) AdvReac Intermediate Psychosis Verified 12/23/23 02:25 oxycodone AdvReac Intermediate weird and Uncoded 12/23/23 02:25 anxious feeling Home Medications ?Medication ?Instructions ?Recorded ?Confirmed ?Type albuterol sulfate 90 mcg/actuation 1 - 2 inh inhalation Q4H PRN 10/22/23 12/24/23 Rx aerosol inhaler shortness of breath or wheezing #8.5 grams ipratropium 0.5 mg-albuterol 3 mg 3 ml inhalation Q6H PRN wheezing 10/22/23 12/24/23 Rx (2.5 mg base)/3 mL nebulization #90 mL soln acetaminophen 650 mg rectal 650 mg FL Q6H PRN fever, mild pain 12/31/23 Rx suppository #6 supp bisacodyl 10 mg rectal suppository 10 mg FL daily PRN constipation #2 12/31/23 Rx (Dulcolax (bisacodyl)) supp haloperidol lactate 2 mg/mL oral 1 mg (0.5 mL) PO Q6H PRN agitation 12/31/23 Rx concentrate #15 mL hyoscyamine sulfate 0.125 mg 0.125 - 0.25 mg (1 - 2 x 0.125 mg) 12/31/23 Rx disintegrating tablet PO Q4H PRN secretions #24 tabs lorazepam 1 mg tablet 1 mg PO Q4H PRN anxiety, GARCÍA or 12/31/23 Rx nausea #6 tabs prochlorperazine maleate 10 mg 10 mg PO Q6H PRN nausea and 12/31/23 Rx tablet vomiting #6 tabs sennosides 8.6 mg tablet (senna) 8.6 mg PO BID PRN constipation #30 01/11/24 Rx tabs Exam Narrative Exam Narrative: General: thin, frail, elderly female, laying in hospital bed with HOB elevated. She is JAMUL. She appears uncomfortable, holding her stomach. She was actively vomiting at the time of admission. HEENT: normocephalic, atraumatic, EOMI, MM slightly dry. Neck: supple Cardiovascular: tachycardic. Respiratory: respirations appear even and unlabored at rest. Lung sounds are diminished, no rales or wheezing. GI: abd soft, nondistended, tender on gentle palpation. Ext: moves all 4 extremities freely, extremities are thin with muscle atrophy, no edema. Results Last Vital Signs Temp 37.7 C H 01/21/24 16:30 Pulse 100 H 01/21/24 16:30 Resp 20 01/21/24 16:30 BP 206/100 H 01/21/24 16:30 Pulse Ox 100 01/21/24 16:30 Time Spent Time spent with Patient: 40-54 minutes Time was spent: preparing to see the patient(eg.review tests), obtaining and/or reviewing separately otained hiistory, ordering medications,tests, procedures, referring, communicating with other health critical care physician, counseling the patient and care coordination
[2024-01-21] MEDS: HYDROmorphone 1 MG/ML SYR IVP ×3 (17:05→19:42)
[2024-01-21] MEDS: Scopolamine 1 MG/3 DAYS PATCH TD (17:06)
[2024-01-21] MEDS: Ondansetron O.D.T. 4 MG TABEF PO (17:13)
[2024-01-21] MEDS: LORazepam 2 MG/ML VIAL 1 MG IVP ×2 (17:14→23:00)
[2024-01-21] MEDS: Acetaminophen 325 MG TAB PO (17:46)
[2024-01-21] MEDS: HYDROmorphone 200 MG in CADD PUMP CASSETTE 1 EACH, Normal Saline 80 ML SC_INF (17:51)
[2024-01-21] MEDS: Prochlorperazine 10 MG TAB PO (18:44)
[2024-01-21] MEDS: Haloperidol 1 MG TAB PO (18:44)
--- NOTE | 2024-01-21 23:04 | NUR.NOTE ---
Nursing Note: Pt ripped out SC set that GOSPEL SINGER pump was running to. Pt very restless and cachexic, difficult to find another area for SC set at this time. GOSPEL SINGER restarted through IV site.
[2024-01-22] MEDS: Ondansetron O.D.T. 4 MG TABEF PO ×3 (04:41→18:01)
[2024-01-22] MEDS: HYDROmorphone 200 MG in CADD PUMP CASSETTE 1 EACH, Normal Saline 80 ML IV (05:18)
--- NOTE | 2024-01-22 05:36 | NUR.NOTE ---
Nursing Note: Noted fentanyl patch to pts R shoulder blade. Pt stated this is from home health expiry date noted on patch 01/20. Removed at this time.
[2024-01-22 07:23] VITALS: BP 164/90; PULSE 91; RESP 25; TEMP 36.3; O2SAT 96
[2024-01-22] MEDS: Prochlorperazine 10 MG TAB PO ×2 (07:40→15:30)
[2024-01-22] MEDS: Haloperidol 1 MG TAB PO ×2 (08:02→15:30)
--- NOTE | 2024-01-22 08:52 | CHAPLAIN ---
I had a brief visit with Den after she was admitted last night, and brought her a prayer shawl. She was very tired and was getting settled in. I let her know that psychiatric technician is available 16/09 if she wanted company. I'll check in with her today.
--- NOTE | 2024-01-22 11:20 | PHACLINREV_ITS ---
Pharmacy Admission Review Admission Clinical Review Admission Pharmacy Review: Sulfa (Sulfonamide Antibiotics) Allergy (Severe, Verified 12/23/23 02:25) Anaphylaxsis meperidine HCl (From Demerol) Allergy (Intermediate, Verified 12/23/23 02:25) Contraindicated, seizures phenytoin sodium (From Dilantin) Allergy (Intermediate, Verified 12/23/23 02:25) Contraindicated, seizures phenytoin sodium extended (From Dilantin) Allergy (Intermediate, Verified 12/23/23 02:25) Contraindicated, seizures amoxicillin Allergy (Unknown, Verified 12/23/23 02:25) unknown diazepam (From Valium) Allergy (Unknown, Verified 12/23/23 02:25) unknown hydromorphone (From Dilaudid) Allergy (Unknown, Verified 12/23/23 02:25) unknown morphine Allergy (Verified 12/23/23 02:25) Other (See Comment) midazolam HCl (From Versed) Adverse Reaction (Intermediate, Verified 12/23/23 02:25) Psychosis oxycodone Adverse Reaction (Intermediate, Uncoded 12/23/23 02:25) weird and anxious feeling Resuscitation Status DNR/DNI Pharmacy Admission Review Renal Dosing Medications needing adjustments: N/A (Hospice patient - no weight or height in chart) Anticoagulation DVT Prophylaxis: N/A Opiate Usage Evaluate Pain Scale/Pains Meds: Reviewed (hydromorphone drip with hydromorphone 1mp IVP PRN) Scheduled Bowel Reg ordered if on Opiates?: No (PRN Miralax/bisacodyl) Relevant Labs Electrolytes, C-Reactive P, ESR: Reviewed Cardiac Review BP, HR, EF%: Reviewed (BP 164/90, HR 91 and RR 25) QTc Review QTc: Reviewed (511 from 12/23/23) IV to PO Switch IV Medications: Reviewed Home Meds Home Med List reviewed: Reviewed Current Meds Current Medication Order Review: Intervened Comments: Hydromorphone pump currently running at 1.2mg/hr Per nurse going well and patient has not required any boluses Was paged last night when nurse was setting up pump because they were not able to put in a value for MASTER WELDER bolus. Had to look into this so I told nurse to run with clinician boluses until I was able to get an answer. Told nursing today during morning meeting that MASTER WELDER boluses are only allowed for infusions that are very low concentrations (these are available as options in order set for provider).
[2024-01-22] MEDS: LORazepam 1 MG TAB PO ×2 (12:08→18:01)
--- NOTE | 2024-01-22 15:04 | PGE_ITS ---
Date of Service Date of service: 01/22/24 Time of Service: 15:04 Assessment and Plan Assessment and plan (1) Comfort measures only status: Status: Acute (2) Protein calorie malnutrition: Status: Acute (3) Nausea and vomiting: Status: Inactive (4) Unintentional weight loss: Status: Acute (5) Dyspnea on exertion: Status: Acute (6) PTSD (post-traumatic stress disorder): (7) Cachexia: (8) Opioid withdrawal: Status: Resolved (9) COPD (chronic obstructive pulmonary disease): (10) Hospice care patient: Status: Acute Assessment and plan: Scott is on hospice for protein-calorie malnutrition/unintentional weight loss. She is not interested in diagnostics to investigate the cause of her weight loss and abdominal pain. She also has a history of abdominal pain. It has been difficult to manage her pain at home. She has a significant trauma history with PTSD, which likely exacerbates her symptoms. She remains on HOSPICE SYMPTOM MANAGEMENT for uncontrolled pain, nausea and vomiting . Her pain is not under control despite being on the hydromorphone pump, discussed increasing the rate with nursing. She is requiring intermittent boluses. She continues to have nausea and vomiting. She has not vomited for 3 hours after getting zofran, compazine, scop patch, lorazepam and haloperidol. Her nausea and vomiting has been difficult to manage. Discussed giving medications on a more regular basis and alternating. She had a BM yesterday. She has had limited PO intake due to abdominal pain and n/v. She will remain on hospice symptom management until her symptoms are well managed. She plans to return home after discharge. Subjective Subjective Interval history since last seen: Scott remains on hospice Symptom management. She was admitted yesterday and started on a hydromorphone pump, her dose is curr ently at 1.6 mg/hr. Her pain is not well controlled. She is requiring frequent boluses. Her BP is elevated, likely due to uncontrolled pain. She continues to have nausea and vomiting. Nursing has given every option available for nausea/vomting. She has scop patch in place, she has had ondansetron, compazine, haloperidol and lorazepam. She has not vomited for 3 hours, which is significant since she has been nauseated and vomiting frequently. She has not been able to keep anything down. She tried to take some sips of a protein shake and vomited shortly after. She moved her bowels prior to coming into the hospital. She has not had a BM since she was admitted. She has been getting up to the BR with assistance. Exam Narrative Exam Narrative: General: very pleasant, thin, elderly female, laying in hospital bed with HOB elevated. She is awake, alert and oriented. She does not appear comfortable. HEENT: normocephalic, atraumatic, EOMI, MM slightly dry. Neck: supple Cardiovascular: tachycardic. Respiratory: respirations appear even and unlabored at rest. Lungs sound clear throughout. GI: +BS, abd soft, nondistended, tenderness noted on gentle palpation. Ext: moves all 4 extremities freely, extremities are thin. No edema. Objective Last Vital Signs Temp 36.3 C L 01/22/24 07:23 Pulse 91 H 01/22/24 07:23 Resp 25 H 01/22/24 07:23 BP 164/90 H 01/22/24 07:23 Pulse Ox 96 01/22/24 07:23 Time Spent with Patient Time Spent with Patient: 35-49 minutes Time was spent: preparing to see the patient(eg.review tests), referring, communicating with other health healthcare consultant, indepentently interpreting results, counseling the patient and care coordination
[2024-01-23] MEDS: Ondansetron O.D.T. 4 MG TABEF PO ×2 (01:07→12:07)
[2024-01-23] MEDS: Prochlorperazine 10 MG TAB PO ×4 (01:32→21:18)
[2024-01-23] MEDS: Haloperidol 1 MG TAB PO (06:09)
[2024-01-23] MEDS: LORazepam 2 MG/ML VIAL 1 MG IVP ×2 (08:04→12:07)
--- NOTE | 2024-01-23 08:47 | PDOC.CMIN ---
Date of service: 01/23/24 Time of Service: 08:47 Care Management Initial Assmt Advance Directives Advance Directives: Do you have an Advance Directive: N 06/18/23 09:58 AD On File at [facility]: N 06/18/23 09:58 Date Asked 01/21/24 01/21/24 14:56 AD Date Reviewed COLST On File at [facility] Yes 06/18/23 09:58 COLST Date Scanned 04/16/23 06/18/23 09:58 Code Status Resuscitation Status DNR/DNI Care Team Visit Care Team Role Provider Type Carla Park NP Primary Care Provider NURSE PRACTITIONER Tosha Payton MD Admit Provider [facility] STAFF PHYSICIAN Attending Provider [facility] All Active Problems (Updated 01/23/24 @ 00:03 by DEVEN CERON) Comfort measures only status (Acute) Opioid withdrawal (Acute) Hospice care patient (Acute) Opioid dependence with current use (Acute) Opiate misuse (Acute) Protein calorie malnutrition (Acute) Encounter for hospice care discussion (Acute) Fatigue (Acute) Nausea (Acute) Palliative care encounter (Acute) GERD (gastroesophageal reflux disease) (Chronic) Unintentional weight loss (Acute) Impaired instrumental activities of daily living (Acute) Dyspnea on exertion (Acute) History of sleep study (Acute) Sleep pattern disturbance (Acute) Palliative care patient (Acute) Vascular occlusion (Acute) Dyshidrosis (Acute) Chronic pain (Chronic) Depression (Chronic) Current smoker (Acute) Narcotic withdrawal (Acute) Anemia (Acute) Medical History NSTEMI (non-ST elevated myocardial infarction) Peripheral arterial disease Physician orders for life-sustaining treatment (POLST) form indicates patient wish for [id number] status ACP (advance care planning) Hematemesis Hypertension COPD (chronic obstructive pulmonary disease) Respiratory failure with hypoxia Temporal lobe epilepsy Vitamin D deficiency Late effect of pelvic fracture Cachexia PTSD (post-traumatic stress disorder) GI bleed Helicobacter pylori gastritis Movement disorder Loss of vision Abdominal pain Chronic, continuous use of opioids Hx of drug withdrawal syndrome Seizures Social History Smoking/Tobacco Use Status: Former Tobacco Use Quit status: has quit before Second Hand Exposure: Yes Smoking risk assessment performed?: Yes Alcohol Intake: never Drug use: Daily Substance use type: marijuana Adopted: No Caregiver/Support person: Yes Foster care: No Household members: spouse Housing: house Number of Children: 1 number of grandchildren: 0 Communication Needs: Blind Education Level: middle school Do you need help understanding health information?: Often 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 SDOH(Care Management) Screening Will the Patient Participate in the Screening?: Declined to provide Social Determinants of Health Comments(SDOH Details): pt vomiting and in pain, unable to answer, home health hospice nurse sent her in from home via ems
--- NOTE | 2024-01-23 08:49 | PDOC.CMPRO ---
Date of service: 01/23/24 Time of Service: 08:49 Care Management Progress Note Progress Note Text Progress Note Text: Den was sitting up in bed when CM met with her. Her eyes were half closed but she was awake. She is hard of hearing, especially on the right side and does not see well so it was difficult to communicate. Den responded to questions slowly or not at all and seemed irritated. She was admitted by hospice for symptom management yesterday. She has not been doing well at home and her pain has not been well managed. Den is now receiving IV hydromorphone via infusion at 1.6 mls/hr. and she informed CM that her pain is better controlled here in the hospital Discharge Potential Discharge Needs: Other (return home on hospice) Anticipated Barriers to Discharge: Medical Status Patient/Family Education Needs: Review discharge instructions, discuss Ask Me Three Transportation: Private vehicle Plan: Anticipate Den will be discharged back home on hospice when her symptoms are controlled. She will follow up with the hospice providers and care team and transport via EMS coordinated by CM. CM will follow and assess for ongoing discharge concerns. SDOH(Care Management) Screening Will the Patient Participate in the Screening?: Declined to provide Social Determinants of Health Comments(SDOH Details): pt vomiting and in pain, unable to answer, home health hospice nurse sent her in from home via ems
[2024-01-23 10:16] VITALS: BP 178/89; PULSE 97; RESP 14; TEMP 36.6; O2SAT 96
--- NOTE | 2024-01-23 12:49 | CHAPLAIN ---
Den was sleeping when I visited. I gentle spoke to her and she opened her eyes. I explained who I was and offered support and let her know store host is available 16/09. She closed her eyes again. Den is a hospice patient here for pain management. She appears comfortable. An WALL WORKER was in the room with her and said Den opens her eyes off and on and the WALL WORKER talks to her when she appears to awake..
[2024-01-23] MEDS: Normal Saline Flush 10 ML SYR IVP (13:00)
[2024-01-23] MEDS: Senna TAB 1 TAB PO (17:33)
[2024-01-23] MEDS: Polyethylene Glycol 3350 17 GM PACKET PO (17:34)
[2024-01-23] MEDS: LORazepam 1 MG TAB PO ×2 (17:34→21:18)
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
[2024-01-24] VITALS (11 sets, daily range): BP systolic 137–176; BP diastolic 72–91; PULSE 99–115; RESP 15–24; TEMP 36.4–36.8; O2SAT 94–98
[2024-01-24] MEDS: Ondansetron O.D.T. 4 MG TABEF PO ×2 (02:20→14:36)
[2024-01-24] MEDS: Hyoscyamine 0.125 MG SL/ORAL/CHEW PO ×2 (09:11→14:06)
[2024-01-24] MEDS: LORazepam 1 MG TAB PO ×2 (09:11→21:27)
[2024-01-24] MEDS: Senna TAB 1 TAB PO (09:12)
[2024-01-24] MEDS: Prochlorperazine 10 MG TAB PO ×3 (09:51→22:28)
[2024-01-24] MEDS: Normal Saline Flush 10 ML SYR IVP ×4 (14:06→21:28)
[2024-01-24] MEDS: LORazepam 2 MG/ML VIAL 1 MG IVP ×2 (14:36→16:49)
[2024-01-24] MEDS: Scopolamine 1 MG/3 DAYS PATCH TD (16:49)
[2024-01-24] MEDS: Polyethylene Glycol 3350 17 GM PACKET PO (16:52)
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
[2024-01-25] MEDS: LORazepam 2 MG/ML VIAL 1 MG IVP ×4 (01:59→21:56)
[2024-01-25 07:26] VITALS: BP 161/89; PULSE 109; RESP 19; TEMP 37.2; O2SAT 96
[2024-01-25] MEDS: Hyoscyamine 0.125 MG SL/ORAL/CHEW PO (07:58)
[2024-01-25] MEDS: Prochlorperazine 10 MG TAB PO (07:58)
[2024-01-25] MEDS: Normal Saline Flush 10 ML SYR IVP ×2 (07:58→12:40)
[2024-01-25] MEDS: Polyethylene Glycol 3350 17 GM PACKET PO (10:48)
[2024-01-25] MEDS: Ondansetron O.D.T. 4 MG TABEF PO (12:38)
[2024-01-25] MEDS: LORazepam 1 MG TAB PO (17:57)
[2024-01-25 20:51] VITALS: BP 157/83; PULSE 114; RESP 16; TEMP 36.2; O2SAT 96
[2024-01-25 23:35] VITALS: RESP 17
[2024-01-26] MEDS: Prochlorperazine 10 MG TAB PO ×2 (02:12→22:09)
[2024-01-26] MEDS: LORazepam 2 MG/ML VIAL 1 MG IVP ×3 (05:23→21:55)
[2024-01-26] MEDS: Normal Saline Flush 10 ML SYR IVP ×2 (05:36→23:00)
--- NOTE | 2024-01-26 07:30 | W.PALPGNOTE ---
Date of service: 01/26/24 Time of Service: 07:31 Assessment and Plan Assessment and plan (1) Palliative care encounter: Status: Acute (2) Comfort measures only status: Status: Acute (3) Unintentional weight loss: Status: Acute (4) Protein calorie malnutrition: Status: Acute (5) Sleep pattern disturbance: Status: Acute Assessment and plan: Den is an 78-year-old woman on hospice for protein calorie malnutrition. I am meeting her for a second consult for medical aid in dying. I do understand that she is not a morning person. She will need a second visit by me to reevaluate her at a better time for her. I am able to do this at 3:00 [address]. I will let Dr. Payton know. I have asked nursing to not dose her with Ativan 1 to 2 hours before me coming Subjective Subjective Interval history since last seen: I am seeing Den at [facility]. She has been admitted through hospice due to pain and nausea. I was asked by Dr. Tosha Barrett to do a second consult for her request for medical aid in dying. Staff states that she was in a lot of pain even with the change in concentration. She is presently getting Dilaudid 4 mg/h. She got 2 additional doses last evening. She also received Ativan and buspirone. Morning is not her best time. I did wake her and initially she did not open her eyes but spoke. I reminded her of why I was there and she sat up in bed on her own and opened her eyes and talk. She said she is quite confused and that she has been hallucinating a lot. She could not tell me why she was in the hospital or why she was on hospice. She states that she lives in [place] with her but that neither of them can take care of themself. After a bit she was able to remember that she was going to meet with me this morning. Exam Narrative Exam Narrative: Sleepy but able to sit up on her own and then move her legs over the side of the bed. She smiled. She was not able to tell me why she was on hospice and what was going to happen to her. She was unable to explain to me what medical aid in dying was. She did say that she knew she was dying. She did tell nursing earlier that she expected to today Cachectic 78-year-old woman who looks older than her stated age. She does have depends on. Her breathing was actually quite good. She had deep breathing and cooperated with the exam. She was tachycardic. Her abdomen was nontender. Objective Last Vital Signs Temp 97.2 F L 01/25/24 20:51 Pulse 114 H 01/25/24 20:51 Resp 17 01/25/24 23:35 BP 157/83 H 01/25/24 20:51 Pulse Ox 96 01/25/24 20:51 1. Able to Understand Medical Problem: Observations:no 2. Able to Understand Proposed Treatment: Observations:no 3. Able to Understand Alternative to Proposed Treatment (if any): Observations: not at this time 4. Able to Understand Option of Refusing Proposed Treatment (including withholding or withdrawing proposed treatment): Observations: unable to grasp 5. Able to Appreciate Reasonably Foreseeable Consequences of Accepting Proposed Treatment: Observations: 6. Able to Appreciate Resonably Foreseeable Consequences of Refusing Proposed Treatment (including withholding or withdrawing proposed treatment): Observation: Note: for questions 7a/7b a Yes answer means the person's decision is affected by the depression of psychosis. 7a. The Person's Decision is Affected by Depression: Observations: unsure 7b. The Person's Decision is Affected by Delusion/Psychosis: Observations: unsure, did not demonstrate delusions today Overall Impression: Definitely Capable Probably Capable Probably Incapable XXXX Definitely Incapable Comments: I understand she is NOT a morning person
[2024-01-26 07:32] VITALS: BP 155/77; PULSE 100; RESP 15; TEMP 36.6; O2SAT 95
--- NOTE | 2024-01-26 11:38 | CMPROGNOTE_ITS ---
Date of service: 01/26/24 Time of Service: 11:39 Care Management Progress Note Progress Note Text Progress Note Text: CLIFF met with Hillary, hospice ANESTHESIOLOGIST AND CRITICAL CARE, to discuss the plan of care for Den. Hillary met with Den, her , and Dia, an [facility] home provider in the community, to discuss the option of Den going to live with Dia, who will provide 16/09 care. CM met with Den, who was resting in her chair. She engaged minimally, and stated that she was resting after receiving medication that makes her feel sleepy. Den expressed understanding and agreement of the plan for her to discharge, likely tomorrow, to [facility] [place]. Hillary assisted Den with completing a [facility] med[facility] application today; CM faxed it to [facility]. Hillary will set up transport via EMS for Den, when she is ready for discharge. CM will continue to follow. Discharge Potential Discharge Needs: Other (coordination of home care/[facility] home) Anticipated Barriers to Discharge: None Identified Patient/Family Education Needs: Review discharge instructions, discuss Ask Me Three Transportation: EMS Plan: Den is at [facility] for hospice symptom management. She will remain here until her symptoms are well controlled. Per hospice ANESTHESIOLOGIST AND CRITICAL CARE, she will transfer from here to a family shelter in the community, coordinated by hospice. She will transport via EMS, and will follow up with hospice providers, as needed. CM will continue to follow. SDOH(Care Management) Screening Will the Patient Participate in the Screening?: Declined to provide Social Determinants of Health Comments(SDOH Details): pt vomiting and in pain, unable to answer, home health hospice nurse sent her in from home via ems
[2024-01-26] MEDS: Acetaminophen 325 MG TAB PO (14:58)
[2024-01-26 16:38] VITALS: O2SAT 95
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
[2024-01-26 20:19] VITALS: BP 153/77; PULSE 101; RESP 97; TEMP 36.2
[2024-01-26] MEDS: Senna TAB 1 TAB PO (22:09)
[2024-01-27] MEDS: LORazepam 2 MG/ML VIAL 1 MG IVP ×4 (02:43→20:48)
[2024-01-27 07:19] VITALS: BP 151/79; PULSE 97; RESP 16; TEMP 37.3; O2SAT 97
--- NOTE | 2024-01-27 09:57 | PDOC.CMPRO ---
Date of service: 01/27/24 Time of Service: 09:58 Care Management Progress Note Progress Note Text Progress Note Text: Den was sitting up on the edge of her bed talking with Mora, the Electrician Apprentice, and her RN, Bola, when CM met with her. She stated that she feels confused today, and she is achy all over, but she also stated that her pain is much better controlled than when she arrived. CM reviewed the plan with Den, which will be for her to go to a community halfway in [place]. Den expressed some concern for her , Danis, who is also not well. He is planning to remain at home, with support from a friend. Per hospice, Den will transition to hospice respite today, as she is not yet able to discharge, but her symptoms are well managed. CM will continue to follow. Discharge Potential Discharge Needs: Other (coordination of community placement) Anticipated Barriers to Discharge: Bed availability Patient/Family Education Needs: Review discharge instructions, discuss Ask Me Three Transportation: EMS Plan: Den is at [facility] for hospice respite, which she was transitioned to from hospice symptom management on 01/27/24. Per hospice BARREL REAMER, she will transfer from here to a family halfway in the community, coordinated by hospice. She will transport via EMS, and will follow up with hospice providers, as needed. CM will continue to follow. SDOH(Care Management) Screening Will the Patient Participate in the Screening?: Declined to provide Social Determinants of Health Comments(SDOH Details): pt vomiting and in pain, unable to answer, home health hospice nurse sent her in from home via ems
[2024-01-27 10:12] VITALS: O2SAT 97
[2024-01-27] MEDS: Normal Saline Flush 10 ML SYR IVP ×3 (14:28→20:48)
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
[2024-01-27] MEDS: Scopolamine 1 MG/3 DAYS PATCH TD (15:48)
--- NOTE | 2024-01-27 15:54 | CHAPLAIN ---
Den was sitting up at the edge of her bed when I visited. She was tearful and said she didn't understand why she was here. She asked if she is dying, is that why I was visiting. I told her I visit everyone and I believe she came in to have her pain better controlled. She asked if we could speak with her nurse, so Bola RN, came in and explained that Den was admitted because her pain needed to be better controlled, and that she is under hospice care, and malnourished. Bola offered Den juices and got her some sherbert when she requested that. Accountant Bookkeeper Irma Lino came in and told Den she was scheduled to be transferred to a community skilled nursing today, but there's been a delay and Den will remain here for five days of respite care. Den asked about her , Danis, and told us he has leukemia. Irma said as far as she knows, Danis will remain at their home with the support of a friend. Den acknowledged that she knows she's confused and appreciated the reminders of why she is here. I will continue to visit.
--- NOTE | 2024-01-27 16:00 | PGE_ITS ---
Date of Service Date of service: 01/25/24 Time of Service: 10:00 Assessment and Plan Assessment and plan (1) Constipation: Status: Acute (2) Severely underweight adult: Status: Acute (3) Psychological trauma history: Status: Acute (4) Comfort measures only status: Status: Acute (5) Hospice care patient: Status: Acute (6) Nausea: Status: Acute (7) Fatigue: Status: Acute (8) Protein calorie malnutrition: Status: Acute (9) Chronic pain: Status: Chronic Assessment and plan: Pain improved with increase in hydromorphone to 4 mg/hr. Hopefully, we will be able to hold her steady there. Qualifiers: Chronic pain type: due to trauma Qualified Code(s): G89.21 - Chronic pain due to trauma Subjective Subjective Patient reports: still having pain, pain is less, no bowel movement and nausea; denies vomiting Interval history since last seen: Tamsen's hydromorphone pump was increased to 4 mg/hr during my visit. To run at this rate, we had to change the pump concentration to 10 mg/ml. This was done. I spoke to her nurses later in the day and they said she appeared more comfortable on this dose (up from 3.2 mg/hr). She continues to eat very little, less than a total 4 oz of food (mostly fruit). She is drinking about 16 ounces of fluids. She has not had a BM since admission, despite receiving bowel meds. We are working on a plan to get her home safely once her symptoms are controlled. If her cannot care for her, she may need to go to a community penitentiary. He is due to have chemo soon, and he may not be strong enough to care for her next week particularly. Exam Narrative Exam Narrative: General: pleasant, cachectic elderly female, sitting up at the side of the bed. She was crying on and off throughout the visit. She reported active hallucinations of ants and a person sitting in her recliner. She appears fatigued. eyes anicteric, she is legally blind and has a hard time focusing on objects HEENT: normocephalic, atraumatic, mmm, edentulous neck: no jvd or lad cardiovascular: tachycardic. Respiratory: respirations appear even and unlabored at rest. Lungs sound diminished throughout. GI: +BS, abd softly distended, nontender on gentle palpation. Ext: moves all 4 extremities freely, using both upper extremities to try to take a drink from her cup. no edema. little muscle mass neuro she knows she is in the hospital, knows it is January, unclear of day of week or date , hallucinations as reported psych tearful, misses her , unsure if she will ever see him again skin very thin skin, copious wrinkles, no rashes, no skin breakdown gu no torres, wearing incontinence pants Objective Last Vital Signs Temp 99.1 F 01/27/24 07:19 Pulse 97 H 01/27/24 07:19 Resp 16 01/27/24 07:19 BP 151/79 H 01/27/24 07:19 Pulse Ox 97 01/27/24 10:12 Time Spent with Patient Time Spent with Patient: 35-49 minutes Time was spent: ordering medications,tests, procedures, referring, communicating with other health child care associate teacher, counseling the patient and care coordination
[2024-01-27] MEDS: Senna TAB 1 TAB PO (20:29)
[2024-01-27] MEDS: Polyethylene Glycol 3350 17 GM PACKET PO (20:29)
[2024-01-28] MEDS: Normal Saline Flush 10 ML SYR IVP ×3 (00:38→22:53)
[2024-01-28] MEDS: LORazepam 2 MG/ML VIAL 1 MG IVP ×4 (00:38→22:53)
[2024-01-28] MEDS: Bisacodyl 10 MG SUPP PR (04:58)
[2024-01-28] MEDS: LORazepam 1 MG TAB PO (05:16)
[2024-01-28 07:37] VITALS: BP 145/92; PULSE 109; RESP 16; TEMP 37.1; O2SAT 95
--- NOTE | 2024-01-28 12:44 | W.NUTRFU ---
Date of service: 01/28/24 Time of Service: 12:44 Nutrition Note NOTE: Pt noted to be on comfort measures with little po intake capability. PNC in kitchen continues to visit pt to offer juice, tea and other items as desired. No aggressive nutrition intervention planned/desired by patient and family at this time. Will continue to support with any items from the kitchen desired, family guest trays/hospice cart with nourishments as needed. Time Spent in Nutritional Counseling and Treatment: 0
--- NOTE | 2024-01-28 16:20 | PDOC.CMPRO ---
Date of service: 01/28/24 Time of Service: 16:20 Care Management Progress Note Progress Note Text Progress Note Text: CM attempted to meet with Den several times today. She was sleeping each time. On the last attempt, she was awake, but did not respond to her name or other attempts at conversation made by CM. Den continues on her hydromorphone drip at 4mg/h. Hospice provider has not yet been in to see her today. Discharge Potential Discharge Needs: Other (coordination of community placement ) Anticipated Barriers to Discharge: Bed availability Patient/Family Education Needs: Review discharge instructions, discuss Ask Me Three Transportation: EMS Plan: Den is at [facility] for hospice respite, which she was transitioned to from hospice symptom management on 01/27/24. Per hospice WEBSITE OPTIMIZATION STRATEGIST, she will transfer from here to a family nursing home in the community, coordinated by hospice. She will transport via EMS, and will follow up with hospice providers, as needed. CM will continue to follow. SDOH(Care Management) Screening Will the Patient Participate in the Screening?: Declined to provide Social Determinants of Health Comments(SDOH Details): pt vomiting and in pain, unable to answer, home health hospice nurse sent her in from home via ems
[2024-01-28 22:41] VITALS: BP 163/77; PULSE 100; RESP 18; TEMP 37; O2SAT 100
[2024-01-29] MEDS: LORazepam 2 MG/ML VIAL 1 MG IVP ×5 (01:40→20:26)
[2024-01-29] MEDS: Haloperidol 1 MG TAB PO (01:52)
[2024-01-29 02:02] VITALS: RESP 18
[2024-01-29] MEDS: Senna TAB 1 TAB PO ×3 (02:11→20:48)
[2024-01-29] MEDS: Polyethylene Glycol 3350 17 GM PACKET PO ×2 (02:11→20:48)
[2024-01-29] MEDS: LORazepam 1 MG TAB PO ×2 (06:01→23:40)
[2024-01-29 06:46] VITALS: BP 138/78; PULSE 100; RESP 14; TEMP 37.5; O2SAT 97
--- NOTE | 2024-01-29 08:43 | CMPROGNOTE_ITS ---
Date of service: 01/29/24 Time of Service: 08:43 Care Management Progress Note Progress Note Text Progress Note Text: Den was sitting up in bed when CM met with her today. She looked comfortable, and per nursing, she had just received an injection of Ativan. She did not respond to CM, but had just been talking with nursing staff. Per nursing, Den is declining some. She no longer can feed herself and she no longer can use a straw. She is purposely being kept at a level of -1 on the RASS scale. Discharge Potential Discharge Needs: Other (coordination of placement in [facility] home vs returning to her own home) Anticipated Barriers to Discharge: None Identified Patient/Family Education Needs: Review discharge instructions, discuss Ask Me Three Transportation: EMS Plan: Den is at [facility] for hospice respite, which she was transitioned to from hospice symptom management on 01/27/24. Per hospice OIL WELL CABLE TOOL DRILLER, she will transfer from here to a family assisted in the community, coordinated by hospice vs returning home, which is her top choice. She will discharge on Friday02/01/24. She will transport via EMS, and will follow up with hospice providers, as needed. CM will continue to follow. SDOH(Care Management) Screening Will the Patient Participate in the Screening?: Declined to provide Social Determinants of Health Comments(SDOH Details): pt vomiting and in pain, unable to answer, home health hospice nurse sent her in from home via ems
--- NOTE | 2024-01-29 09:32 | NUR.NOTE ---
Nursing Note: Tubing kinked off under the mesh. Tubing looped and taped. CADD pump did not alert or beep.
[2024-01-29 13:13] VITALS: RESP 18
--- NOTE | 2024-01-29 14:26 | CHAPLAIN ---
When I visited Den this morning, the LNAs had just changed her clothes and braided her hair. She looked comfortable. She was sitting up in bed. I believe she knew I was there, but she didn't responded to questions. I sat with her for a while. I will continue to visit. According to Care Management notes, Den will be transferred to a community [facility] on Hospice on 01/02/24. She was admitted here as a hospice patient for symptom management, and then continued to stay as a hospice patient on respite.
[2024-01-29] MEDS: Normal Saline Flush 10 ML SYR IVP ×2 (14:45→20:26)
--- NOTE | 2024-01-29 16:41 | NUR.NOTE ---
Nursing Note: SC needle was dislodged. Site changed laterally of old site. New tubing primed. Bolus received.
[2024-01-29 16:44] VITALS: RESP 22
--- NOTE | 2024-01-29 18:18 | NUTRITION ---
Patient c/o all over itchiness. Silicone moisturizer applied to upper body skin and knees
[2024-01-29] MEDS: Bisacodyl 10 MG SUPP PR (20:48)
[2024-01-29 20:50] VITALS: BP 139/66; PULSE 102; RESP 16; TEMP 37.3; O2SAT 97
[2024-01-30] MEDS: LORazepam 2 MG/ML VIAL 1 MG IVP ×3 (01:47→09:24)
[2024-01-30] MEDS: Haloperidol 1 MG TAB PO (05:52)
[2024-01-30 07:50] VITALS: BP 134/75; PULSE 105; RESP 14; TEMP 36.6; O2SAT 96
[2024-01-30] MEDS: Normal Saline Flush 10 ML SYR IVP (09:25)
--- NOTE | 2024-01-30 11:33 | CHAPLAIN ---
I sat with Den for a while this morning. She opened her eyes briefly and seemed to acknowledge that I was there. She didn't say anything but seems to be resting comfortably.
[2024-01-30] MEDS: LORazepam 1 MG TAB PO ×2 (13:12→17:35)
--- NOTE | 2024-01-30 13:43 | NUR.NOTE ---
Nursing Note: Spoke with Ashlee Santana RN, @ [facility]- she advised pulling IV access due to pain, patency issues, advised she would inform provider.
--- NOTE | 2024-01-30 16:03 | CMPROGNOTE_ITS ---
Date of service: 01/30/24 Time of Service: 11:45 Care Management Progress Note Progress Note Text Progress Note Text: Den was sitting up in the bed when CM met with her today. The nurse's aide was with her, assisting her with lunch. Den was unable to eat or drink much today. She did respond to CM that she is good, when asked how she was feeling. Den appeared to barely have the strength to speak. CM reached out to hospice x 2 today to get a clearer picture of her discharge plan - [facility] home vs home with hospice services, but had to leave a message each time. Discharge Potential Discharge Needs: Other (coordination of placement in [facility] home vs returning to her own home) Anticipated Barriers to Discharge: None Identified Patient/Family Education Needs: Review discharge instructions, discuss Ask Me Three Transportation: EMS Plan: Den is at [facility] for hospice respite. Per hospice SUPERINTENDENT RECREATION, she will transfer from here to a family shelter in the community, coordinated by hospice vs returning home, which is her top choice. She will discharge on Friday02/01/24. She will transport via EMS, and will follow up with hospice providers, as needed. CM will continue to follow. SDOH(Care Management) Screening Will the Patient Participate in the Screening?: Declined to provide Social Determinants of Health Comments(SDOH Details): pt vomiting and in pain, unable to answer, home health hospice nurse sent her in from home via ems
[2024-01-30] MEDS: Scopolamine 1 MG/3 DAYS PATCH TD (16:40)
[2024-01-31] MEDS: LORazepam 1 MG TAB PO ×3 (05:23→14:38)
[2024-01-31 07:16] VITALS: BP 143/86; PULSE 109; RESP 17; TEMP 36.4; O2SAT 97
[2024-02-01] MEDS: LORazepam 1 MG TAB PO ×2 (00:29→10:10)
--- NOTE | 2024-02-01 02:11 | NUR.NOTE ---
00:30 assumed care of this patient .Patient is sitting quietly in bed .Nursing Note:
[2024-02-01 07:24] VITALS: BP 166/88; PULSE 112; RESP 19; TEMP 37.4; O2SAT 98
--- NOTE | 2024-02-01 10:06 | PDOC.CMDIS ---
Date of service: 02/01/24 Time of Service: 10:07 LACE Index Scoring Tool Questions: Length of Stay (in days): 7 - 13 Was the patient admitted via the E.D.?: No E.D. Visits: 3 Answers: Total Score: 8 Risk of Readmission: Low Risk Care Management Discharge Plan Reason for Hospitalization: hospice symptom management, hospice respite Discharge Plan: Den will return to the community today, into the care of an [facility] home, coordinated by hospice. She will transport via EMS. She will follow up with hospice providers in the community. Patient/Family Education Needs: Review discharge instructions and limitations, discussion of self care needs including ask me three. Services Needed at Discharge: Transportation (EMS) SDOH Health Related Social Needs: No Data to Display
[2024-02-01 13:30] VITALS: O2SAT 98
--- NOTE | 2024-02-01 13:57 | W.PM.DS.N ---
Date of service: 02/01/24 Time of Service: 13:20 DS: Diagnosis Discharge Diagnosis (1) Constipation: Status: Acute Asessment and Plan: F/u with hospice at home (2) Severely underweight adult: Status: Acute Asessment and Plan: On hospice for protein-calorie malnutrition (3) Psychological trauma history: Status: Acute (4) Comfort measures only status: Status: Acute (5) Hospice care patient: Status: Acute (6) Nausea: Status: Acute Asessment and Plan: Controlled (7) Fatigue: Status: Acute (8) Protein calorie malnutrition: Status: Acute (9) Chronic pain: Status: Chronic Asessment and Plan: Controlled, continue CADD pump Discharge Plan Disposition Patient Disposition: Home W/Hospice Services Condition: Fair Discharge Details Reason For Visit: Hospice Symptom Management, Pain Control Admit Date/Time: 01/21/24 16:00 Admit Provider: Tosha Payton Attending Provider: Tosha Payton Primary Care Provider: Carla [facility] Hospital Course Hospital Course: Scott is on hospice for protein-calorie malnutrition/unintentional weight loss. She was not interested in diagnostics to investigate the cause of her weight loss and abdominal pain. It was difficult to to manage her pain at home. She has a significant trauma history with PTSD, which likely exacerbates her symptoms. Prior to her admission to [facility] for hospice symptom management, she was on oral pain medication and transitioned to fentanyl patch. The patch dose was increased and she initially had good pain control, however, when her hospice nurse went to visit Den had removed the patch. Her pain was uncontrolled and her nurse was concerned that she was experiencing withdrawal. She was agitated, anxious, restless and had nausea with vomiting. Her symptoms were completely out of control and the decision was made to admit her to [facility] for hospice symptom management for pain control and treatment of withdrawal. She was initially started on subcutaneous hydromorphone pump. She required IV hydromorphone for abdominal pain prior to the initiation of the pump. She had significant nausea and vomiting initially that required multiple medications IV to manage. Once her symptoms were under control she transitioned to hospice respite as her has his own medical problems and was unable to care for her in her weakened, more dependent state. She remained on respite for 5 nights. An alternative living situation was sought and found. She will discharge home today to a community [facility]ci. She will remain on hospice services with Dia as her new caregiver. During her stay at the hospital, she took small amounts of PO, mostly fluids. Her last BM was 01/21/24. She was given senna but she declined other laxatives, including miralax and suppositories. She requires 1 assist for ambulation. She is walking minimally. She is primarily doing transfers from bed/chair to [facility]. She is weak and requires assistance for all care. She does not have any open areas on her skin. She has a healed pressure area on her coccyx. Home Meds and New Rx's Prescriptions: New acetaminophen 325 mg Tablet 650 mg PO Q6H PRNQty: 30 0RF Rx Instructions: hospice polyethylene glycol 3350 17 gram Powder In Packet 17 g PO DAILY PRN PRN (Reason: Constipation) Qty: 0 0RF scopolamine base 1 mg over 3 days Patch 3 Day 1 mg transdermal Q72H Qty: 5 0RF Rx Instructions: hospice ondansetron 4 mg Tablet,Disintegrating 4 mg PO Q4H PRN PRNQty: 30 0RF Rx Instructions: hospice hydromorphone (PF) 10 mg/mL solution 4 mg subcut Q1H Qty: 100 0RF Rx Instructions: Continue CADD pump per hospice basal rate: 4 mg/hr bolus: 2 mg q15m PRN Continued ipratropium-albuterol 0.5 mg-3 mg(2.5 mg base)/3 mL solution for nebulization 3 ml inhalation Q6H PRN (Reason: wheezing) Qty: 90 3RF albuterol sulfate 90 mcg/actuation HFA aerosol inhaler 1 - 2 inh INHALATION Q4H PRN (Reason: shortness of breath or wheezing) Qty: 8.5 12RF hyoscyamine sulfate 0.125 mg tablet,disintegrating 0.125 - 0.25 mg PO Q4H PRN (Reason: secretions) Qty: 24 0RF Rx Instructions: Hospice Patient lorazepam 1 mg tablet 1 mg PO Q4H PRN (Reason: anxiety, GARCÍA or nausea) Qty: 6 5RF Rx Instructions: Hospice Patient haloperidol lactate 2 mg/mL concentrate 1 mg PO Q6H PRN (Reason: agitation) Qty: 15 0RF Rx Instructions: Hospice Patient prochlorperazine maleate 10 mg tablet 10 mg PO Q6H PRN (Reason: nausea and vomiting) Qty: 6 0RF Rx Instructions: Hospice Patient bisacodyl [Dulcolax (bisacodyl)] 10 mg suppository 10 mg NE daily PRN (Reason: constipation) Qty: 2 0RF Rx Instructions: Hospice Patient Insert 1 supp NE Daily PRN constipation (no BM in 3 days) sennosides [senna] 8.6 mg tablet 8.6 mg PO BID PRN (Reason: constipation) Qty: 30 4RF No Action acetaminophen 650 mg suppository 650 mg NE Q6H PRN (Reason: fever, mild pain) Qty: 6 0RF Rx Instructions: Hospice Patient Discharge Instructions Instructions: Palliative Care Additional Instructions: Resume hospice services. Please call Hospice with any questions or concerns [phone] Stand Alone Forms: Nursing Discharge Form Activity:: Activity as Tolerated Equipment/Supplies:: No Equipment Needed Diet:: As Tolerated Discharge Orders Discharge Orders: Discharge Order (Routine); Ordered 02/01/24 Ordered By: Ayesha Rehman DS: Summary Time Spent with Patient providing and/or coordinating discharge services: Greater than 30 minutes Status at Discharge Functional status at discharge: independent ambulation (requires assistance but does not use ambulatory aid, only takes steps) Overall status at discharge: patient is back to baseline Mental Status: other (confused, hallucinating) Speech and Movement: delayed speech Mood: other (confused, hallucinating) Affect: normal affect (blunted) Quality:SDOH Health Related Social Needs: No Data to Display Exam Narrative Exam Narrative: General: pleasant, thin/cachectic elderly female, sitting up in the chair in her hospital room. She was hallucinating but did not appear uncomfortable or frightened. She was sticking her tongue out at little children, smiling. She appears fatigued, she states she is in the hospital. HEENT: normocephalic, atraumatic, appears to have difficulty with vision, mmm, edentulous neck: no jvd or lad cardiovascular: tachycardic. Respiratory: respirations appear even and unlabored at rest. Lungs sound diminished throughout. GI: +BS, abd softly distended, nontender on gentle palpation. Ext: moves all 4 extremities freely, using both upper extremities to try to take a drink from her cup. no edema. She has muscle atrophy. Psych Mental Status: other (confused, hallucinating) Speech and Movement: delayed speech Mood: other (confused, hallucinating) Affect: normal affect (blunted) DS: Data Vitals/I&O Vitals and I&O: Vital Signs Temperature 37.4 C 02/01/24 07:24 Temperature Source Tympanic 02/01/24 07:24 Pulse 112 H 02/01/24 07:24 Respiratory Rate 19 02/01/24 07:24 Respiratory Effort Labored 01/21/24 19:37 Respiratory Depth Normal 01/21/24 19:37 Respiratory Pattern Normal 01/21/24 19:37 Blood Pressure 166/88 H 02/01/24 07:24 Pulse Oximetry 98 02/01/24 13:30 Oxygen Delivery Method Room Air 02/01/24 13:30 Oxygen Flow Rate 0 02/01/24 13:30 Pain Level 0 02/01/24 11:49 Comment RN notified 01/28/24 07:40 Intake & Output 01/31/24 02/01/24 02/01/24 23:59 11:59 23:59 Intake Total 123.653 / 591.999 6.947 / 126.947 120 / 126.947 Balance 123.653 / 591.999 6.947 / 126.947 120 / 126.947 Intake: IV 3.653 / 11.999 6.947 / 6.947 Oral 120 / 580 120 / 120 Other: Urine Color Yellow Urine Appearance Clear Clear PFSH All Active Problems Housing problems (Acute) Constipation (Acute) Severely underweight adult (Acute) Psychological trauma history (Acute) Comfort measures only status (Acute) Hospice care patient (Acute) Opioid dependence with current use (Acute) Opiate misuse (Acute) Protein calorie malnutrition (Acute) Encounter for hospice care discussion (Acute) Fatigue (Acute) Nausea (Acute) Palliative care encounter (Acute) GERD (gastroesophageal reflux disease) (Chronic) Unintentional weight loss (Acute) Impaired instrumental activities of daily living (Acute) Dyspnea on exertion (Acute) History of sleep study (Acute) Sleep pattern disturbance (Acute) Palliative care patient (Acute) Vascular occlusion (Acute) Dyshidrosis (Acute) Chronic pain (Chronic) Depression (Chronic) Current smoker (Acute) Narcotic withdrawal (Acute) Anemia (Acute) Medical History NSTEMI (non-ST elevated myocardial infarction) Peripheral arterial disease Physician orders for life-sustaining treatment (POLST) form indicates patient wish for [id number] status ACP (advance care planning) Hematemesis Hypertension COPD (chronic obstructive pulmonary disease) Respiratory failure with hypoxia Temporal lobe epilepsy Vitamin D deficiency Late effect of pelvic fracture Cachexia PTSD (post-traumatic stress disorder) GI bleed Helicobacter pylori gastritis Movement disorder Loss of vision Abdominal pain Chronic, continuous use of opioids Hx of drug withdrawal syndrome Seizures Social History Smoking/Tobacco Use Status: Former Tobacco Use Quit status: has quit before Second Hand Exposure: Yes Smoking risk assessment performed?: Yes Alcohol Intake: never Drug use: Daily Substance use type: marijuana Adopted: No Caregiver/Support person: Yes Foster care: No Household members: spouse Housing: house Number of Children: 1 number of grandchildren: 0 Communication Needs: Blind Education Level: middle school Do you need help understanding health information?: Often current occupation: retired [employer] Pets and animals: Yes Pets and animals: cat(s) and dog(s) Do you think of yourself as: straight/heterosexual Current gender identity: female What is your relationship status?: How often do you talk on the phone with friends or family?: decline to answer How often do you get together with friends or relatives?: never Do you belong to any clubs or organized social groups?: no Panel score (0-1 are the most socially isolated patients): 1 Seatbelt use: always Do you feel safe at home: Yes Do you feel safe in your relationship?: Yes Time Spent with Patient Time Spent with Patient: 45-69 minutes Time was spent: preparing to see the patient(eg.review tests), ordering medications,tests, procedures, referring, communicating with other health physician primary care sports medicine, counseling the patient and care coordination
--- NOTE | 2024-02-01 15:42 | NUR.NOTE ---
Nursing Note: This remote mortgage underwriter contacted [facility] and spoke with Emmie in the answering service. I explained that the pt was discharged earlier today and her discharge paperwork was left at the desk. Emmie stated that she will reach out to the trade economist home health/hospice provider and provided me with their fax # . Michelle (trade economist home health) returned call and spoke with this nurse. I explained the situation and Michelle confirmed that they received all the information they needed(this information already received earlier). Michelle confirms that they do not need the d/c information (med list, health summary, and pt education.
== END 2024-02-01 14:48 | disposition hospice, home (50) | DRG 392 ==
PROVIDERS: Admitting Provider Family Medicine; PCP Nurse Practitioner; Visit Provider Family Medicine
DX: R10.9 Unspecified abdominal pain (principal); E46 Unspecified protein-calorie malnutrition; Z68.1 Body mass index [BMI] 19.9 or less, adult; G40.109 Localization-related (focal) (partial) symptomatic epilepsy and epileptic syndromes with simple partial seizures, not intractable, without status epilepticus; Z79.891 Long term (current) use of opiate analgesic; Z51.5 Encounter for palliative care; J44.9 Chronic obstructive pulmonary disease, unspecified; I73.9 Peripheral vascular disease, unspecified; I10 Essential (primary) hypertension; F32.A Depression, unspecified; D64.9 Anemia, unspecified; R63.4 Abnormal weight loss; R11.2 Nausea with vomiting, unspecified; K21.9 Gastro-esophageal reflux disease without esophagitis; R06.09 Other forms of dyspnea; G47.9 Sleep disorder, unspecified; G89.29 Other chronic pain; F17.210 Nicotine dependence, cigarettes, uncomplicated; I25.2 Old myocardial infarction; F43.10 Post-traumatic stress disorder, unspecified; E55.9 Vitamin D deficiency, unspecified; Z79.899 Other long term (current) drug therapy; K59.00 Constipation, unspecified; H54.8 Legal blindness, as defined in USA
CPT/HCPCS: 00123; J1171; J2060; J3490

== ENCOUNTER 2024-07-11 04:23 | Emergency (ER) | payer MEDICARE, MEDICAID, SELFPAY ==
[2024-07-11 04:24] VITALS: BP 188/101; PULSE 83; RESP 18; TEMP 37.2; O2SAT 100
[2024-07-11 04:29] VITALS: BP 195/95; PULSE 80; RESP 18; TEMP 37.2; O2SAT 99
--- NOTE | 2024-07-11 04:31 | W.ED.GENAD ---
Discharge Plan Disposition Patient Disposition: Home Condition: Stable Discharge Details Chief Complaint: Urinary Clinical Impression: Chronic abdominal pain Primary Care Provider: Carla Park ED Provider: Ray May Home Meds and New Rx's Prescriptions: No Action albuterol sulfate 90 mcg/actuation HFA aerosol inhaler 1 - 2 inh INHALATION Q4H PRN (Reason: shortness of breath or wheezing) Qty: 8.5 12RF morphine concentrate 100 mg/5 mL (20 mg/mL) solution 15 mg PO Q2H PRN MDD 24 mL PRN (Reason: pain) Qty: 120 0RF Rx Instructions: Keep track of daily use by writing it down ondansetron 4 mg tablet,disintegrating 4 mg PO Q4H PRN PRN (Reason: nausea and vomiting) Qty: 30 0RF Rx Instructions: hospice sennosides [senna] 8.6 mg tablet 8.6 mg PO BID PRN (Reason: constipation) Qty: 30 4RF food supplemt, lactose-reduced 0.04 gram- 1 kcal/mL liquid 237 ml PO QD-BID Qty: 5688 2RF polyethylene glycol 3350 17 gram Powder In Packet 17 g PO DAILY PRN PRN (Reason: Constipation) Qty: 0 0RF Discharge Instructions Additional Instructions: At this time there is no evidence of urinary tract infection. There is a very small amount of blood in your urine that is noted. If you do change your mind and would like further diagnostic workup, please do not hesitate to return and we would be happy to continue diagnostic evaluation. Please continue to take your home morphine as prescribed. If you notice any worsening of your symptoms, or any new symptoms such as vomiting, diarrhea, fever, chills, shortness of breath, chest pain, numbness, weakness, or fainting , please return immediately to the emergency department for reevaluation. Please follow up with your primary care provider as soon as possible for reassessment and reevaluation. As always, it was a pleasure participating in your medical care today. Referrals: Martha Buchanan NP [NURSE PRACTITIONER] - Carla Park NP [Primary Care Provider] - [facility] General Date/Time Provider Initiated Documentation: 07/11/24 04:29. HPI Narrative: This is an 78-year-old female with a past medical history of hypertension, epilepsy, previous PEG tube, PTSD, COPD, chronic pain on morphine who is a palliative care patient, and for time was a hospice patient but I did not , and so I think they kicked me off of hospice, whose goals of care are avoiding hospitals, avoiding labs, imaging, or procedures if at all possible is DNR/DNI, who presents today via EMS for dysuria, burning with urinary frequency, and mild suprapubic pain. Symptoms have been present for the last 2 or 3 days. She denies any vomiting or diarrhea. No chest pain or shortness of breath. No fever or chills. No other complaints at this time. Related Data Home Medications ?Medication ?Instructions ?Recorded ?Confirmed albuterol sulfate 90 mcg/actuation 1 - 2 inh inhalation Q4H PRN 10/22/23 07/11/24 aerosol inhaler shortness of breath or wheezing #8.5 grams polyethylene glycol 3350 17 gram 17 g PO DAILY PRN PRN Constipation 02/01/24 07/11/24 oral powder packet #0 ea morphine concentrate 100 mg/5 mL 15 mg (0.75 mL) PO Q2H PRN PRN 06/29/24 07/11/24 (20 mg/mL) oral solution pain #120 mL ondansetron 4 mg disintegrating 4 mg PO Q4H PRN PRN nausea and 06/29/24 07/11/24 tablet vomiting #30 tabs sennosides 8.6 mg tablet (senna) 8.6 mg PO BID PRN constipation #30 06/29/24 07/11/24 tabs food supplemt, lactose-reduced 237 ml PO QD-BID #5,688 mL 06/30/24 07/11/24 0.04 gram-1 kcal/mL oral liquid Previous Rx's ?Medication ?Instructions ?Recorded albuterol sulfate 90 mcg/actuation 1 - 2 inh inhalation Q4H PRN 10/22/23 aerosol inhaler shortness of breath or wheezing #8.5 grams polyethylene glycol 3350 17 gram 17 g PO DAILY PRN PRN Constipation 02/01/24 oral powder packet #0 ea morphine concentrate 100 mg/5 mL 15 mg (0.75 mL) PO Q2H PRN PRN 06/29/24 (20 mg/mL) oral solution pain #120 mL ondansetron 4 mg disintegrating 4 mg PO Q4H PRN PRN nausea and 06/29/24 tablet vomiting #30 tabs sennosides 8.6 mg tablet (senna) 8.6 mg PO BID PRN constipation #30 06/29/24 tabs food supplemt, lactose-reduced 237 ml PO QD-BID #5,688 mL 06/30/24 0.04 gram-1 kcal/mL oral liquid Allergies Allergy/AdvReac Type Severity Reaction Status Date / Time Sulfa (Sulfonamide Allergy Severe Anaphylaxsi Verified 07/11/24 04:32 Antibiotics) s meperidine HCl (From Demerol) Allergy Intermediate Contraindicated, Verified 07/11/24 04:32 seizures phenytoin sodium (From Allergy Intermediate Contraindicated, Verified 07/11/24 04:32 Dilantin) seizures phenytoin sodium extended Allergy Intermediate Contraindicated, Verified 07/11/24 04:32 (From Dilantin) seizures amoxicillin Allergy Unknown unknown Verified 07/11/24 04:32 diazepam (From Valium) Allergy Unknown unknown Verified 07/11/24 04:32 hydromorphone (From Dilaudid) Allergy Unknown unknown Verified 07/11/24 04:32 morphine Allergy Other (See Verified 07/11/24 04:32 Comment) midazolam HCl (From Versed) AdvReac Intermediate Psychosis Verified 07/11/24 04:32 oxycodone AdvReac Intermediate weird and Uncoded 07/11/24 04:32 anxious feeling General Stated Complaint: Urinary CRISTO: 3 Exam Narrative Exam Narrative: 1.Const: Thin cachectic female 2.Eyes: PERRL, no conjunctival injection, and symmetrical lids. 3.ENT: Atraumatic external nose and ears. Moist MM. Neck: Symmetric, trachea midline, No thyromegaly. 4.CVS: +S1/S2, Peripheral pulses 2+ and equal in all extremities. Brisk capillary refill in all extremities. 5.RESP: Unlabored respiratory effort. Clear to auscultation bilaterally. No wheezes rales or rhonchi 6.GI: Soft, Nontender/Nondistended, No hepatosplenomegaly. No guarding or rebound. 7.MSK: Normocephalic/Atraumatic, Extremities w/o deformity or ttp No cyanosis or clubbing, Normal movement of all extremities 8.Skin: Warm, Dry. No rashes or lesions. 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 Sensation grossly intact, no focal neurologic deficits. 10.Psych: (AAO) x3. Appropriate mood and affect Course Vital Signs Vital signs: Vital Signs Temperature 37.2 C 07/11/24 04:24 Pulse 83 07/11/24 04:24 Respiratory Rate 18 07/11/24 04:24 Blood Pressure 188/101 H 07/11/24 04:24 Pulse Oximetry 100 07/11/24 04:24 Temperature 37.2 C 07/11/24 04:24 Temperature Source Temporal Artery Scan 07/11/24 04:24 Pulse 83 07/11/24 04:24 Respiratory Rate 18 07/11/24 04:24 Blood Pressure 188/101 H 07/11/24 04:24 Pulse Oximetry 100 07/11/24 04:24 Oxygen Delivery Method Room Air 07/11/24 04:24 Oxygen Flow Rate 0 07/11/24 04:24 Pain Level 8 07/11/24 04:24 Medical Decision Making This is an 78-year-old female with a past medical history of hypertension, epilepsy, previous PEG tube, PTSD, COPD, chronic pain on morphine who is a palliative care patient, and for time was a hospice patient but I did not , and so I think they kicked me off of hospice, whose goals of care are avoiding hospitals, avoiding labs, imaging, or procedures if at all possible is DNR/DNI, who presents today via EMS for dysuria, burning with urinary frequency, and mild suprapubic pain. Symptoms have been present for the last 2 or 3 days. She denies any vomiting or diarrhea. No chest pain or shortness of breath. No fever or chills. No other complaints at this time. Exam demonstrates a thin and cachectic female, no signs of an acute surgical abdomen. No abdominal guarding or rebound. I discussed the patient's goals with her, we discussed aggressiveness of evaluation. At this time patient would like to avoid testing, IVs, or anything else if at all possible. I did offer a urinalysis and she consented. We will get a UA to check for infection, monitor closely and reassess. 5:40 AM Urinalysis is negative for evidence of infection. There are a few RBCs. I discussed these findings with the patient and offered additional diagnostic evaluation. Patient has declined any further diagnostic assessment, and does not want any further comanagement. She would like to go home. We have given Tylenol, Motrin, and morphine IR here which she is tolerated well. She would like to follow-up with her palliative care team. Will place referral for this. With no further diagnostic workup being desired, no evidence of life-threatening etiology, patient will be discharged home. Discussed red flags for which to return. I have extensively reviewed the treatment plan and discharge instructions with the patient. I have addressed all patient concerns at this time. The patient was made aware of what symptoms to monitor for that would warrant a return to the emergency department. Discussed the plan with the patient, they demonstrate verbal understanding and agreement with our assessment and plan at this time. The documentation in this chart was dictated using [employer] dictation software. Please excuse any dictation errors. Quality:SDOH Health Related Social Needs: No Data to Display PFSH All Active Problems (Updated 07/11/24 @ 05:44 by Ray May DO) Chronic abdominal pain (Acute) Housing problems (Acute) Severely underweight adult (Acute) Psychological trauma history (Acute) Comfort measures only status (Acute) Hospice care patient (Acute) Opioid dependence with current use (Acute) Opiate misuse (Acute) Protein calorie malnutrition (Acute) Encounter for hospice care discussion (Acute) Fatigue (Acute) Nausea (Acute) GERD (gastroesophageal reflux disease) (Chronic) Unintentional weight loss (Acute) Impaired instrumental activities of daily living (Acute) Dyspnea on exertion (Acute) History of sleep study (Acute) Sleep pattern disturbance (Acute) Palliative care patient (Acute) Vascular occlusion (Acute) Dyshidrosis (Acute) Chronic pain (Chronic) Depression (Chronic) Current smoker (Acute) Narcotic withdrawal (Acute) Anemia (Acute) Medical History Palliative care encounter Constipation NSTEMI (non-ST elevated myocardial infarction) Peripheral arterial disease Physician orders for life-sustaining treatment (POLST) form indicates patient wish for ot-lsl-xwmwigergca status ACP (advance care planning) Hematemesis Hypertension COPD (chronic obstructive pulmonary disease) Respiratory failure with hypoxia Temporal lobe epilepsy Vitamin D deficiency Late effect of pelvic fracture Cachexia PTSD (post-traumatic stress disorder) GI bleed Helicobacter pylori gastritis Movement disorder Loss of vision Abdominal pain Chronic, continuous use of opioids Hx of drug withdrawal syndrome Seizures Social History Smoking/Tobacco Use Status: Former Tobacco Use Quit status: has quit before Second Hand Exposure: Yes Smoking risk assessment performed?: Yes Alcohol Intake: never Drug use: Daily Substance use type: marijuana Adopted: No Caregiver/Support person: Yes Foster care: No Household members: spouse Housing: house Number of Children: 1 number of grandchildren: 0 Communication Needs: Blind Education Level: middle school Do you need help understanding health information?: Often current occupation: retired [employer] Pets and animals: Yes Pets and animals: cat(s) and dog(s) Do you think of yourself as: straight/heterosexual Current gender identity: female What is your relationship status?: How often do you talk on the phone with friends or family?: decline to answer How often do you get together with friends or relatives?: never Do you belong to any clubs or organized social groups?: no Panel score (0-1 are the most socially isolated patients): 1 Seatbelt use: always Do you feel safe at home: Yes Do you feel safe in your relationship?: Yes
[2024-07-11 05:01] LABS: Bilirubin Negative (Negative); Blood Trace-intact (Negative); Clarity Clear (Clear); Glucose Negative (Negative); Ketones Negative (Negative); Leukocyte Esterase Negative (Negative); Nitrite Negative (Negative); Specific Gravity 1.025 (1.005-1.025); Urobilinogen 0.2 mg/dL (Up to 0.2)
[2024-07-11 05:05] LABS: Bacteria Rare HPF (Negative); C & S Indicated? No; Casts Negative LPF (Negative); Crystals Negative HPF (Negative); Epithelial Cells Rare HPF (Negative); Mucus Negative (Negative); WBC Negative HPF (0-5)
[2024-07-11 05:18] VITALS: BP 169/84; PULSE 79; RESP 18; O2SAT 94
[2024-07-11] MEDS: Ibuprofen 800 MG TAB PO (05:32)
[2024-07-11] MEDS: Acetaminophen 500 MG TAB 1000 MG PO (05:32)
[2024-07-11] MEDS: MORPHine IR 15 MG TAB PO (05:32)
[2024-07-11 05:39] VITALS: BP 215/105; PULSE 76; RESP 18; O2SAT 95
[2024-07-11] MEDS: MORPHine IR 15 MG TAB, 4 TABS/BTL PO (05:56)
[2024-07-11 06:29] VITALS: BP 195/102; PULSE 83; RESP 16; TEMP 36.4; O2SAT 97
== END 2024-07-11 06:47 | disposition home or self-care (01) ==
PROVIDERS: Emergency Provider Student in an Organized Health Care Education/Training Program; PCP Nurse Practitioner
DX: R10.30 Lower abdominal pain, unspecified (principal); G89.29 Other chronic pain; I10 Essential (primary) hypertension
CPT/HCPCS: 99283; 99282; 81003; 81015; 87086

== ENCOUNTER 2024-07-19 20:15 | Observation (INO) | payer MEDICARE, MEDICAID, SELFPAY ==
[2024-07-19 20:20] VITALS: BP 189/95; PULSE 92; RESP 16; TEMP 36.9; O2SAT 99
--- NOTE | 2024-07-19 20:38 | ED.GENADUL_ITS ---
Discharge Plan Disposition Patient Disposition: Admit to [facility] Discharge Details Clinical Impression: Chronic abdominal pain, Constipation Primary Care Provider: Carla Park ED Provider: Lizbeth Pina Home Meds and New Rx's Prescriptions: No Action albuterol sulfate 90 mcg/actuation HFA aerosol inhaler 1 - 2 inh INHALATION Q4H PRN (Reason: shortness of breath or wheezing) Qty: 8.5 12RF sennosides [senna] 8.6 mg tablet 8.6 mg PO BID PRN (Reason: constipation) Qty: 30 4RF food supplemt, lactose-reduced 0.04 gram- 1 kcal/mL liquid 237 ml PO QD-BID Qty: 5688 2RF morphine concentrate 100 mg/5 mL (20 mg/mL) solution 15 mg PO Q2H PRN MDD 24 mL PRN (Reason: pain) Qty: 120 0RF Rx Instructions: Keep track of daily use by writing it down ondansetron 4 mg tablet,disintegrating 4 mg PO Q4H PRN PRN (Reason: nausea and vomiting) Qty: 30 3RF Rx Instructions: hospice polyethylene glycol 3350 17 gram Powder In Packet 17 g PO DAILY PRN PRN (Reason: Constipation) Qty: 0 0RF HPI General Date/Time Provider Initiated Documentation: 07/19/24 20:23 . HPI Narrative: Den is a 78 year old female who presents to the emergency department today for evaluation of lower abdominal pain. She reports that she has chronic abdominal pain secondary to esophageal cancer, says that she ran out of her morphine solution that palliative care prescribed for her even though she says she has been taking every 2 hours as prescribed. She called EMS because she ran out of pain medication and has been in pain. 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 Has not eaten any food in the last 3 days, says she has been drinking Agustín-Aid to stay hydrated. She lives at home with her , she says able to take care of herself but is not able to take care of her. Last night think she may have had a fever. Denies recent chills, congestion, sore throat, cough, chest pain, wheezing, shortness of breath, vomiting, change in urine output. She reports that she has been constipated for the last couple of days, had a small hard stool today, but says that she has not had bowel movements because she has not been eating. Past medical history is significant for malnutrition, chronic abdominal pain, COPD, GERD, depression. She is being treated by palliative care Physical exam remarkable for slightly tacky mucous membranes. Patient is alert and interactive. Abdomen is soft, nondistended, diffusely tender to palpation, but most tender in the lower abdomen. Normal bowel sounds. No fecal impaction. Easy work of breathing, lung sounds clear bilaterally. Normal heart sounds. Patient moving all extremities normally. D/dx includes but is not limited to: Failure to thrive, electrolyte imbalance, acute malnutrition, dehydration, UTI, kidney stone, constipation, colitis, neoplasm I independently interpreted the following tests: CBC notable for mild anemia. CMP, lactate, magnesium, lipase all unremarkable. CT abdomen/pelvis performed, shows severe thickening of the rectal wall with severe constipation. Mass is not excluded. While in the emergency department, Den received oral morphine hourly for pain control with little improvement of symptoms. Discussed case with Dr. Guo, overnight hospitalist. Patient to be admitted for hydration, management of constipation, and pain control Related Data Home Medications ?Medication ?Instructions ?Recorded ?Confirmed albuterol sulfate 90 mcg/actuation 1 - 2 inh inhalation Q4H PRN 10/22/23 07/19/24 aerosol inhaler shortness of breath or wheezing #8.5 grams polyethylene glycol 3350 17 gram 17 g PO DAILY PRN PRN Constipation 02/01/24 07/19/24 oral powder packet #0 ea sennosides 8.6 mg tablet (senna) 8.6 mg PO BID PRN constipation #30 06/29/24 07/19/24 tabs food supplemt, lactose-reduced 237 ml PO QD-BID #5,688 mL 06/30/24 07/19/24 0.04 gram-1 kcal/mL oral liquid morphine concentrate 100 mg/5 mL 15 mg (0.75 mL) PO Q2H PRN PRN 07/12/24 07/19/24 (20 mg/mL) oral solution pain #120 mL ondansetron 4 mg disintegrating 4 mg PO Q4H PRN PRN nausea and 07/14/24 07/19/24 tablet vomiting #30 tabs Previous Rx's ?Medication ?Instructions ?Recorded albuterol sulfate 90 mcg/actuation 1 - 2 inh inhalation Q4H PRN 10/22/23 aerosol inhaler shortness of breath or wheezing #8.5 grams polyethylene glycol 3350 17 gram 17 g PO DAILY PRN PRN Constipation 02/01/24 oral powder packet #0 ea sennosides 8.6 mg tablet (senna) 8.6 mg PO BID PRN constipation #30 06/29/24 tabs food supplemt, lactose-reduced 237 ml PO QD-BID #5,688 mL 06/30/24 0.04 gram-1 kcal/mL oral liquid morphine concentrate 100 mg/5 mL 15 mg (0.75 mL) PO Q2H PRN PRN 07/12/24 (20 mg/mL) oral solution pain #120 mL ondansetron 4 mg disintegrating 4 mg PO Q4H PRN PRN nausea and 07/14/24 tablet vomiting #30 tabs Allergies Allergy/AdvReac Type Severity Reaction Status Date / Time Sulfa (Sulfonamide Allergy Severe Anaphylaxsi Verified 07/19/24 20:21 Antibiotics) s meperidine HCl (From Demerol) Allergy Intermediate Contraindicated, Verified 07/19/24 20:21 seizures phenytoin sodium (From Allergy Intermediate Contraindicated, Verified 07/19/24 20:21 Dilantin) seizures phenytoin sodium extended Allergy Intermediate Contraindicated, Verified 07/19/24 20:21 (From Dilantin) seizures amoxicillin Allergy Unknown unknown Verified 07/19/24 20:21 diazepam (From Valium) Allergy Unknown unknown Verified 07/19/24 20:21 hydromorphone (From Dilaudid) Allergy Unknown unknown Verified 07/19/24 20:21 morphine Allergy Other (See Verified 07/19/24 20:21 Comment) midazolam HCl (From Versed) AdvReac Intermediate Psychosis Verified 07/19/24 20:21 oxycodone AdvReac Intermediate weird and Uncoded 07/19/24 20:21 anxious feeling General Stated Complaint: Abd Prob CRISTO: 3 Review of Systems Narrative: See HPI Exam Const General: cooperative Nutritional Appearance: thin and underweight Orientation: alert and oriented x3 Resp Effort & Inspection: normal respiratory effort and able to speak in complete sentences Auscultation: clear to auscultation bilaterally Cardio Rate: regular rate Rhythm: regular rhythm GI Inspection: normal to inspection and non-distended Palpation: soft, not firm, no guarding, not rigid and tender in the LLQ, in the RLQ and suprapubicly Auscultation: normal bowel sounds Rectal Exam - female: visual inspection normal, normal sphincter tone and No fecal impaction Course Vital Signs Vital signs: Vital Signs Temperature 36.9 C 07/19/24 20:20 Pulse 92 H 07/19/24 20:20 Respiratory Rate 16 07/19/24 20:20 Blood Pressure 189/95 H 07/19/24 20:20 Pulse Oximetry 99 07/19/24 20:20 Temperature 36.9 C 07/19/24 20:20 Temperature Source Temporal Artery Scan 07/19/24 20:20 Pulse 92 H 07/19/24 20:20 Respiratory Rate 16 07/19/24 20:20 Blood Pressure 189/95 H 07/19/24 20:20 Blood Pressure Position Sitting 07/19/24 20:20 Pulse Oximetry 99 07/19/24 20:20 Oxygen Delivery Method Room Air 07/19/24 20:20 Oxygen Flow Rate 0 07/19/24 20:20 Pain Level 8 07/19/24 20:32 Medical Decision Making Imaging Data Radiologic Study: Radiologist's impression: PROCEDURE INFORMATION: Exam: CT Abdomen And Pelvis Without Contrast Exam date and time: 07/19/2024 9:38 PM Age: 78 years old Clinical indication: Abdominal pain; Localized; Lower abd pain, constipation TECHNIQUE: Imaging protocol: Computed tomography of the abdomen and pelvis without contrast. Radiation optimization: All CT scans at this facility use at least one of these dose optimization techniques: automated exposure control; mA and/or kV adjustment per patient size (includes targeted exams where dose is matched to clinical indication); or iterative reconstruction. COMPARISON: CT ABDOMEN PELVIS CTA 04/16/2023 6:13 AM FINDINGS: Lungs: The lungs are hyperinflated, consistent with underlying small airways disease. Moderate centrilobular emphysematous changes are present. Pleural spaces: There is no evidence of pneumothorax. There are no pleural effusions present. Heart: Low attenuation within the cardiac ventricular chambers may represent anemia. Low attenuation within the cardiac ventricular chambers may represent anemia. The cardiac structures are normal. Diaphragm: A small hiatal hernia is present. Liver: There are no focal liver lesions present. There is no definitive evidence of intrahepatic or extrahepatic biliary ductal dilation. Gallbladder and biliary ducts: The common bile duct is mildly enlarged at 12.7 mm. The gallbladder is normal. There is no cholelitiasis, wall thickening or pericholecystic fluid to suggest cholecystitis. Pancreas: Moderate pancreatic atrophy with fatty replacement mild distension of the pancreatic duct. No definitive pancreatic mass identified. Spleen: The spleen is normal. Adrenal glands: Myelolipoma measuring 9.4 x 13.6 mm present within the right adrenal gland. This is enlarged compared to 04/16/2023 where it measured approximately 5.2 x 5.2 mm. Kidneys and ureters: The kidneys are normal. Stomach and bowel: The stomach is distended with ingested material. Severe thickening of the rectal wall.Severe constipation with evidence of barium concretions within the colon. Appendix: There is no evidence of appendicitis. Intraperitoneal space: No free air. No significant fluid collection. Vasculature: The aorta demonstrates moderate to severe atherosclerotic calcification. Moderate to severe atherosclerosis of the peripheral arterial system. Lymph nodes: No enlarged lymph nodes. Urinary bladder: The bladder is normal. Reproductive: The uterus appears retroflexed.The uterus is normal. Bones/joints: Severe levoconvex scoliosis of the lumbar spine with moderate to severe degenerative changes present. Severe degenerative changes and osteoarthritis of the hips bilaterally. Soft tissues: There is a fat-containing umbilical hernia. The extra-abdominal soft tissues are normal. IMPRESSION: 1. Severe thickening of the rectal wall.Severe constipation with evidence of barium concretions within the colon. A mass is not excluded. 2. The lungs are hyperinflated, consistent with underlying small airways disease. 3. Probable anemia. 4. Enlarging right adrenal myelolipoma. Quality:SDOH Health Related Social Needs: No Data to Display PFSH All Active Problems (Updated 07/19/24 @ 22:47 by Lizbeth Buck) Constipation (Acute) Chronic abdominal pain (Acute) Housing problems (Acute) Severely underweight adult (Acute) Psychological trauma history (Acute) Comfort measures only status (Acute) Hospice care patient (Acute) Opioid dependence with current use (Acute) Opiate misuse (Acute) Protein calorie malnutrition (Acute) Encounter for hospice care discussion (Acute) Fatigue (Acute) Nausea (Acute) GERD (gastroesophageal reflux disease) (Chronic) Unintentional weight loss (Acute) Impaired instrumental activities of daily living (Acute) Dyspnea on exertion (Acute) History of sleep study (Acute) Sleep pattern disturbance (Acute) Palliative care patient (Acute) Vascular occlusion (Acute) Dyshidrosis (Acute) Chronic pain (Chronic) Depression (Chronic) Current smoker (Acute) Narcotic withdrawal (Acute) Anemia (Acute) Medical History Palliative care encounter Constipation NSTEMI (non-ST elevated myocardial infarction) Peripheral arterial disease Physician orders for life-sustaining treatment (POLST) form indicates patient wish for [id number] status ACP (advance care planning) Hematemesis Hypertension COPD (chronic obstructive pulmonary disease) Respiratory failure with hypoxia Temporal lobe epilepsy Vitamin D deficiency Late effect of pelvic fracture Cachexia PTSD (post-traumatic stress disorder) GI bleed Helicobacter pylori gastritis Movement disorder Loss of vision Abdominal pain Chronic, continuous use of opioids Hx of drug withdrawal syndrome Seizures Social History Smoking/Tobacco Use Status: Former Tobacco Use Quit status: has quit before Second Hand Exposure: Yes Smoking risk assessment performed?: Yes Alcohol Intake: never Drug use: Daily Substance use type: marijuana Adopted: No Caregiver/Support person: Yes Foster care: No Household members: spouse Housing: house Number of Children: 1 number of grandchildren: 0 Communication Needs: Blind Education Level: middle school Do you need help understanding health information?: Often 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
[2024-07-19 20:56] LABS: Abs Immature Grans 0.02 10^3/uL (0.0-0.06); Absolute Basophil Count 0.03 10^3/uL (0.0-0.2); Absolute Eosinophil Count 0.17 10^3/uL (0.0-0.7); Absolute Lymphocyte Count 1.36 10^3/uL (1.2-3.4); Absolute Monocyte Count 0.67 10^3/uL (0.1-0.8); Basophils % 0.5 %; Eosinophils % 2.8 %; HCT 35.3 % (36.0-46.0); HGB 10.5 g/dL (11.2-15.7); Immature Grans % 0.3 %; Lymphocytes % 22.1 %; MCH 20.5 pg (27.0-33.0); MCHC 29.7 % (32.0-36.0); MCV 69 fL (80-95); MPV 8.7 fL (8.0-11.0); Monocytes % 10.9 %; Neutrophils % 63.4 %; RBC 5.13 10^6/uL (3.93-5.22); RDW 26.2 % (11.7-14.6); RDW-SD 62.5 fL; WBC 6.15 10^3/uL (4.4-10.8)
[2024-07-19] MEDS: MORPHine Oral Solution 10 MG/5 ML CUP 15 MG PO ×2 (21:04→22:38)
[2024-07-19 21:11] LABS: Anisocytosis 2+; Diff Comment RBC Morph Reviewed; Hypochromasia 1+; Microcytosis 2+; Platelet Count 566 10^3/uL (130-400)
[2024-07-19 21:12] LABS: Poikilocytes 1+
[2024-07-19 21:20] LABS: ALT 16 U/L (14-59); AST 18 U/L (15-37); Albumin 3.8 g/dL (3.4-5.0); Alkaline Phosphatase 74 U/L (46-116); Anion Gap 10.8 mmol/L (3-11); BUN 13 mg/dL (7-18); Bilirubin, Total 0.3 mg/dL (0.2-1.0); CO2 25.2 mmol/L (21.0-32.0); CREATININE 0.8 mg/dL (0.55-1.02); Calcium 9.3 mg/dL (8.5-10.1); Chloride 101 mmol/L (98-107); Estimated GFR 74.44 (mL/min/1.73m2); Glucose 114 mg/dL (74-106); Lipase 14 U/L (<78); Magnesium 1.8 mg/dL (1.8-2.4); Potassium 3.6 mmol/L (3.5-5.1); Sodium 137 mmol/L (136-145); Total Protein 8.2 g/dL (6.4-8.2)
--- NOTE | 2024-07-19 21:30 | DI.CT_ITS ---
Exam(s) CT ABDOMEN PELVIS WO EXAM: CT ABDOMEN PELVIS WO CLINICAL HISTORY: lower abd pain, constipation. TECHNIQUE: Imaging Protocol: Axial computed tomography images with coronal and sagittal reformatted images were created and reviewed CONTRAST MATERIAL: Intravenous: none Oral: None COMPARISON: CT CT ABDOMEN PELVIS CTA from 04/16/2023 FINDINGS: VISUALIZED LUNG BASES: No nodules nor pleural effusions evident. ABDOMEN: There is no ascites. LIVER: There are no obvious focal hepatic lesions evident of this noninfused study. GALLBLADDER/BILIARY: No obvious gallbladder pathology. CBD is not dilated. PANCREAS: No evidence of pancreatic mass nor dilatation of the pancreatic duct. SPLEEN: Spleen is not enlarged. No obvious intrasplenic lesions. ADRENALS: There is a containing lesion in the lateral limb of the right adrenal gland which measures 1.4 x 1.0 cm most probably a myelolipoma. This is not previously evident on the prior CT scan of Mar. KIDNEYS:No cysts evident. No solid renal masses. No calculi nor hydronephrosis. . ABDOMINAL AORTA: Enlarged. Iliac arteries also calcified but not enlarged. LYMPH NODES: There is no retroperitoneal nor paraaortic adenopathy. ABDOMINAL WALL: Midline fat only containing umbilical hernia. GI: Abundant fecal material within the colon. Significant constipation with barium concretions also evident in the colon PELVIS: LYMPH NODES: There is no intrapelvic nor inguinal adenopathy. GI: No evidence of appendicitis.No evidence of sigmoid diverticulitis.The rectal wall appears signifi cantly thickened in circumferential fashion. URINARY BLADDER: No calculi nor obvious masses evident REPRODUCTIVE: Uterus is retroverted. No abnormal adnexal masses. OSSEOUS: Advanced osteoarthritic degenerative changes both hips. No significant osseous lesions. No fractures. Multilevel chronic degenerative disc disease and facet arthropathy. IMPRESSION: 1. There is significant circumferential thickening of the rectal wall and there is significant consti pation in the colon above this level. Suspicious for rectal mass. Endoscopy recommended. 2. Enlarging right adrenal gland myelolipoma 3. Midline fat only containing umbilical hernia again noted. V rad report reviewed RADIATION DOSE DELIVERED: 336.92mGy.cm Total DLP DATA REPOSITORY: All CT scans at this facility are submitted to the National Radiology Data Registry (NRDR) Dose Index Registry (DIR) with the [employer] (A[employer]). RADIATION OPTIMIZATION: All CT scans at this facility use at least one of these dose optimization te chniques: automated exposure control; mA and/or kV adjustment per patient size (includes targeted exa ms where dose is matched to clinical indication); or iterative reconstruction.
[2024-07-19 22:00] VITALS: BP 192/92; PULSE 84; RESP 16; O2SAT 98
--- NOTE | 2024-07-19 22:33 | DI.VRAD_ITS ---
PROCEDURE INFORMATION: Exam: CT Abdomen And Pelvis Without Contrast Exam date and time: 07/19/2024 9:38 PM Age: 78 years old Clinical indication: Abdominal pain; Localized; Lower abd pain, constipation TECHNIQUE: Imaging protocol: Computed tomography of the abdomen and pelvis without contrast. Radiation optimization: All CT scans at this facility use at least one of these dose optimization techniques: automated exposure control; mA and/or kV adjustment per patient size (includes targeted exams where dose is matched to clinical indication); or iterative reconstruction. COMPARISON: CT ABDOMEN PELVIS CTA 04/16/2023 6:13 AM FINDINGS: Lungs: The lungs are hyperinflated, consistent with underlying small airways disease. Moderate centrilobular emphysematous changes are present. Pleural spaces: There is no evidence of pneumothorax. There are no pleural effusions present. Heart: Low attenuation within the cardiac ventricular chambers may represent anemia. Low attenuation within the cardiac ventricular chambers may represent anemia. The cardiac structures are normal. Diaphragm: A small hiatal hernia is present. Liver: There are no focal liver lesions present. There is no definitive evidence of intrahepatic or extrahepatic biliary ductal dilation. Gallbladder and biliary ducts: The common bile duct is mildly enlarged at 12.7 mm. The gallbladder is normal. There is no cholelitiasis, wall thickening or pericholecystic fluid to suggest cholecystitis. Pancreas: Moderate pancreatic atrophy with fatty replacement mild distension of the pancreatic duct. No definitive pancreatic mass identified. Spleen: The spleen is normal. Adrenal glands: Myelolipoma measuring 9.4 x 13.6 mm present within the right adrenal gland. This is enlarged compared to 04/16/2023 where it measured approximately 5.2 x 5.2 mm. Kidneys and ureters: The kidneys are normal. Stomach and bowel: The stomach is distended with ingested material. Severe thickening of the rectal wall.Severe constipation with evidence of barium concretions within the colon. Appendix: There is no evidence of appendicitis. Intraperitoneal space: No free air. No significant fluid collection. Vasculature: The aorta demonstrates moderate to severe atherosclerotic calcification. Moderate to severe atherosclerosis of the peripheral arterial system. Lymph nodes: No enlarged lymph nodes. Urinary bladder: The bladder is normal. Reproductive: The uterus appears retroflexed.The uterus is normal. Bones/joints: Severe levoconvex scoliosis of the lumbar spine with moderate to severe degenerative changes present. Severe degenerative changes and osteoarthritis of the hips bilaterally. Soft tissues: There is a fat-containing umbilical hernia. The extra-abdominal soft tissues are normal. IMPRESSION: 1. Severe thickening of the rectal wall.Severe constipation with evidence of barium concretions within the colon. A mass is not excluded. 2. The lungs are hyperinflated, consistent with underlying small airways disease. 3. Probable anemia. 4. Enlarging right adrenal myelolipoma. Dictated and Authenticated by: Alexi Holt MD. Orderin Evonne Nieves MD
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
[2024-07-19 23:21] VITALS: BP 186/94; PULSE 88; RESP 16; O2SAT 98
[2024-07-20] VITALS: BP 180/88; PULSE 84; RESP 16; O2SAT 97
[2024-07-20 01:00] VITALS: BP 178/92; PULSE 84; RESP 16; O2SAT 98
--- NOTE | 2024-07-20 01:09 | NUR.NOTE ---
Pt wandering halls toward zone b and back, pulled out her IV on her own, wandered the [place] outside of the ED, then went back to her room and layed down, pt currently has no IV, FPJ
--- NOTE | 2024-07-20 01:10 | W.PC.ACHO ---
Registration Status: Primary Language: Preferred Language: ED Information & Data Chief Complaint Abd Prob 07/19/24 21:23 Chief Complaint Abd Prob 07/19/24 20:39 Triage Note Pt stated she is having abd 07/19/24 20:20 pain, she has been out of her morphine for the past 2 days and cant get a refill, described abd pain as sharp and dull across lower quads, pt stated is here for pain control Medical / Surgical History (Last Reviewed 07/19/24 @ 23:51 by Randall Guo) Palliative care encounter Constipation NSTEMI (non-ST elevated myocardial infarction) Peripheral arterial disease Physician orders for life-sustaining treatment (POLST) form indicates patient wish for fb-ozu-uqwmyqtoyve status ACP (advance care planning) Hematemesis Hypertension COPD (chronic obstructive pulmonary disease) Respiratory failure with hypoxia Temporal lobe epilepsy Vitamin D deficiency Late effect of pelvic fracture Cachexia PTSD (post-traumatic stress disorder) GI bleed Helicobacter pylori gastritis Movement disorder Loss of vision Abdominal pain Chronic, continuous use of opioids Hx of drug withdrawal syndrome Seizures Most Recent Vital Signs Temperature 36.9 C 07/19/24 20:20 Temperature Source Temporal Artery Scan 07/19/24 20:20 Pulse 84 07/20/24 01:00 Respiratory Rate 16 07/20/24 01:00 Blood Pressure 178/92 H 07/20/24 01:00 Blood Pressure Mean 120 07/20/24 01:00 Blood Pressure Position Sitting 07/19/24 20:20 Pulse Oximetry 98 07/20/24 01:00 Oxygen Delivery Method Room Air 07/20/24 00:00 Oxygen Flow Rate 0 07/20/24 00:00 Pain Level 4 07/19/24 21:23 Allergies Sulfa (Sulfonamide Antibiotics) Allergy (Severe, Verified 07/19/24 20:21) Anaphylaxsis meperidine HCl (From Demerol) Allergy (Intermediate, Verified 07/19/24 20:21) Contraindicated, seizures seizures phenytoin sodium (From Dilantin) Allergy (Intermediate, Verified 07/19/24 20:21) Contraindicated, seizures seizures phenytoin sodium extended (From Dilantin) Allergy (Intermediate, Verified 07/19/24 20:21) Contraindicated, seizures seizures amoxicillin Allergy (Unknown, Verified 07/19/24 20:21) unknown diazepam (From Valium) Allergy (Unknown, Verified 07/19/24 20:21) unknown hydromorphone (From Dilaudid) Allergy (Unknown, Verified 07/19/24 20:21) unknown Pt requests to remove from allergy list 10/04/22 morphine Allergy (Verified 07/19/24 20:21) Other (See Comment) stops breathing midazolam HCl (From Versed) Adverse Reaction (Intermediate, Verified 07/19/24 20:21) Psychosis oxycodone Adverse Reaction (Intermediate, Uncoded 07/19/24 20:21) weird and anxious feeling Diagnostics 07/20/24 07/19/24 Range/Units 05:35 20:45 WBC Pending 6.15 (4.4-10.8) 10^3/uL RBC Pending 5.13 (3.93-5.22) 10^6/uL Hgb Pending 10.5 L (11.2-15.7) g/dL Hct Pending 35.3 L (36.0-46.0) % MCV Pending 69 L (80-95) fL MCH Pending 20.5 L (27.0-33.0) pg MCHC Pending 29.7 L (32.0-36.0) % RDW Pending 26.2 H (11.7-14.6) % Plt Count Pending 566 H (130-400) 10^3/uL MPV Pending 8.7 (8.0-11.0) fL Immature Gran % 0.3 % Neutrophils % 63.4 % Lymphocytes % 22.1 % Monocytes % 10.9 % Eosinophils % 2.8 % Basophils % 0.5 % Nucleated RBC % 0.0 (0.0-0.3) % Absolute Neutrophils 3.90 (1.2-6.7) 10^3/uL Absolute Lymphocytes 1.36 (1.2-3.4) 10^3/uL Absolute Monocytes 0.67 (0.1-0.8) 10^3/uL Absolute Eosinophils 0.17 (0.0-0.7) 10^3/uL Absolute Basophils 0.03 (0.0-0.2) 10^3/uL RBC Morphology See Below Hypochromasia 1+ Poikilocytosis 1+ Anisocytosis 2+ Microcytosis 2+ VBG Lactate 1.0 (<or=2.0) mmol/L Sodium Pending 137 (136-145) mmol/L Potassium Pending 3.6 (3.5-5.1) mmol/L Chloride Pending 101 (98-107) mmol/L Carbon Dioxide Pending 25.2 (21.0-32.0) mmol/L Anion Gap Pending 10.8 (3-11) mmol/L BUN Pending 13 (7-18) mg/dL Creatinine Pending 0.8 (0.55-1.02) mg/dL Est GFR (CKD-EPI 2020) Pending 74.44 (mL/min/1.73m2) Glucose Pending 114 H (74-106) mg/dL Calcium Pending 9.3 (8.5-10.1) mg/dL Magnesium Pending 1.8 (1.8-2.4) mg/dL Total Bilirubin Pending 0.3 (0.2-1.0) mg/dL AST Pending 18 (15-37) U/L ALT Pending 16 (14-59) U/L Alkaline Phosphatase Pending 74 (46-116) U/L Total Protein Pending 8.2 (6.4-8.2) g/dL Albumin Pending 3.8 (3.4-5.0) g/dL Lipase 14 (<78) U/L Qxuff-oq-Vhak Documentation Fingerstick Glucose Start: 07/19/24 20:38 Freq: .Stat Status: Active Protocol: Activity Type Activity Date Activity User E-sign Co-sign Detail Recorded Client Recorded Date Recorded By Document 07/19/24 20:48 BKG DAEMON(3) [id number] 07/19/24 20:50 BKG DAEMON(4) Intake and Output - 24 Hour Total 07/19/24 20:02 thru 07/19/24 20:20 Weight 36.8 kg Falls Risk Assessment Contributing Factors Unstable,Impairments 07/19/24 20:32 Ambulatory Aids Independent 07/19/24 20:32 Tubes/Lines None 07/19/24 20:32 Gait Evaluation W/any additional score 07/19/24 20:32 Cognition No cognitive impairment 07/19/24 20:32 Fall Total Score 26 07/19/24 20:32 Level of Risk Moderate Risk 07/19/24 20:32 Problems (Last Reviewed 07/19/24 @ 23:51 by Randall Guo) Constipation (Chronic) Chronic abdominal pain (Chronic) Opioid dependence with current use (Chronic) GERD (gastroesophageal reflux disease) (Chronic) Depression (Chronic) Anemia (Chronic) v v v v v v v v v Sending and/or Receiving Nurses: Please use comment section below to note any information pertinent to the patient hand-off not included above. Information / Comments: Pt arrives to ED via EMS d/t throat and abd pain. Pt states she had esophageal cancer and ran out of her morphine rx [address] scan shows constipation. Pt given x2 doses of oral morphine, has been HTN since arrival and is reactive to abd palpation. Pt stated IV was bothering her and pulled it out. ED staff to reattempt IV placement before arrival to Med/Surg. Report received from: MARCO A Adam
--- NOTE | 2024-07-20 01:12 | NUR.NOTE ---
Pt was taken to the bathroom for a urine sample, pt missed the hat and no urine was collected, a commode was moved into the room to obtain a urine sample but she refused to use it, PT again went to the bathroom and again missed the hat and no urine was collected, LUZMA
[2024-07-20 01:25] VITALS: BP 180/90; PULSE 91; RESP 18; TEMP 37.2; O2SAT 99
[2024-07-20] MEDS: MORPHine Oral Concentrate 20 MG/ML 15 MG PO ×4 (02:07→13:24)
[2024-07-20 06:47] LABS: HCT 31.2 % (36.0-46.0); HGB 9.4 g/dL (11.2-15.7); MCH 20.7 pg (27.0-33.0); MCHC 30.1 % (32.0-36.0); MCV 69 fL (80-95); MPV 8.8 fL (8.0-11.0); Platelet Count 508 10^3/uL (130-400); RBC 4.54 10^6/uL (3.93-5.22); RDW 26.1 % (11.7-14.6); RDW-SD 62.5 fL; WBC 4.98 10^3/uL (4.4-10.8)
[2024-07-20 07:08] LABS: ALT 14 U/L (14-59); AST 15 U/L (15-37); Albumin 3.3 g/dL (3.4-5.0); Alkaline Phosphatase 67 U/L (46-116); Anion Gap 8.3 mmol/L (3-11); BUN 13 mg/dL (7-18); Bilirubin, Total 0.3 mg/dL (0.2-1.0); CO2 23.7 mmol/L (21.0-32.0); CREATININE 0.8 mg/dL (0.55-1.02); Calcium 8.7 mg/dL (8.5-10.1); Chloride 104 mmol/L (98-107); Estimated GFR 74.44 (mL/min/1.73m2); Glucose 111 mg/dL (74-106); Magnesium 1.9 mg/dL (1.8-2.4); Potassium 3.8 mmol/L (3.5-5.1); Sodium 136 mmol/L (136-145); Total Protein 7.1 g/dL (6.4-8.2)
[2024-07-20 07:13] LABS: TSH (W/Ref FT4) 1.45 uIU/mL (0.36-3.74)
[2024-07-20 07:29] VITALS: BP 96/85; PULSE 96; RESP 16; TEMP 36; O2SAT 90
[2024-07-20] MEDS: Methylnaltrexone 12 MG/0.6 ML VIAL SC (08:38)
[2024-07-20] MEDS: Acetaminophen 325 MG TAB PO (08:38)
[2024-07-20] MEDS: Normal Saline Flush 10 ML SYR IVP (08:38)
[2024-07-20] MEDS: Sennosides/Docusate Sodium TAB 3 TAB PO (08:39)
[2024-07-20] MEDS: Enoxaparin 40 MG/0.4 ML SYR SC (08:39)
[2024-07-20] MEDS: Pantoprazole 40 MG TABCR PO (09:24)
--- NOTE | 2024-07-20 09:25 | PDOC.CMIN ---
Date of service: 07/20/24 Time of Service: 09:25 Care Management Initial Assmt Initial Assessment Reason for Hospitalization: intractable abdominal pain, chronic pain, constipation Functional Status/Living Situation Town of Residence: [place] Resides with: Spouse (Danis - ) Advance Directives Advance Directives: Do you have an Advance Directive: N 06/18/23 09:58 AD On File at [facility]: N 06/18/23 09:58 Date Asked 01/21/24 01/21/24 14:56 AD Date Reviewed 07/19/24 07/19/24 20:30 COLST On File at [facility] Yes 06/18/23 09:58 COLST Date Scanned 04/16/23 06/18/23 09:58 Code Status Resuscitation Status DNR/DNI Care Team Visit Care Team Role Provider Type Deysi Lara, SANDRA NURSE PRACTITIONER Carla Park, SANDRA Primary Care Provider NURSE PRACTITIONER Lizbeth Buck Emergency Provider NURSE PRACTITIONER Randall Guo Admit Provider NON-[facility] STAFF PHYSICIAN Attending Provider Discharge Plan: Anticipate Den will be discharged back home on hospice when her symptoms are controlled. She will follow up with the hospice providers and care team and transport via EMS coordinated by CM. CM will follow and assess for ongoing discharge concerns. Social Determinants of Health Screening Will the Patient Participate in the Screening?: Unable to obtain Do you worry about having a steady place to live?: choose not to answer PFSH All Active Problems Constipation (Chronic) Chronic abdominal pain (Chronic) Housing problems (Acute) Severely underweight adult (Acute) Psychological trauma history (Acute) Comfort measures only status (Acute) Hospice care patient (Acute) Opioid dependence with current use (Chronic) Opiate misuse (Acute) Protein calorie malnutrition (Acute) Encounter for hospice care discussion (Acute) Fatigue (Acute) Nausea (Acute) GERD (gastroesophageal reflux disease) (Chronic) Unintentional weight loss (Acute) Impaired instrumental activities of daily living (Acute) Dyspnea on exertion (Acute) History of sleep study (Acute) Sleep pattern disturbance (Acute) Palliative care patient (Acute) Vascular occlusion (Acute) Dyshidrosis (Acute) Chronic pain (Chronic) Depression (Chronic) Current smoker (Acute) Narcotic withdrawal (Acute) Anemia (Chronic) Medical History Palliative care encounter Constipation NSTEMI (non-ST elevated myocardial infarction) Peripheral arterial disease Physician orders for life-sustaining treatment (POLST) form indicates patient wish for yn-xjr-clwivipvipf status ACP (advance care planning) Hematemesis Hypertension COPD (chronic obstructive pulmonary disease) Respiratory failure with hypoxia Temporal lobe epilepsy Vitamin D deficiency Late effect of pelvic fracture Cachexia PTSD (post-traumatic stress disorder) GI bleed Helicobacter pylori gastritis Movement disorder Loss of vision Abdominal pain Chronic, continuous use of opioids Hx of drug withdrawal syndrome Seizures Social History Smoking/Tobacco Use Status: Former Tobacco Use Quit status: has quit before Second Hand Exposure: Yes Smoking risk assessment performed?: Yes Alcohol Intake: never Drug use: Daily Substance use type: marijuana Adopted: No Caregiver/Support person: Yes Foster care: No Household members: spouse Housing: house Number of Children: 1 number of grandchildren: 0 Communication Needs: Blind Education Level: middle school Do you need help understanding health information?: Often 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
--- NOTE | 2024-07-20 09:37 | PDOC.CMPRO ---
Date of service: 07/20/24 Time of Service: 09:37 Care Management Progress Note Progress Note Text Progress Note Text: Den was sitting on the edge of her bed when CM arrived. Den stated that she wants to go home today, as she feels much better. Den is living in [place] with her partner Danis, in their single family home. Den states that she does not have any home services; her has a [facility] nurse that comes into their home, for him. She states she is happy that she does not have home services because she likes to be left alone. Per Den, she used to be seen by palliative, but they no longer come. She states she no longer is followed by a PCP and does not want too. Patient states, if I have medical issues then I will drink, smoke marijuana, or take aspirin. Discharge Potential Discharge Needs: PCP F/U Appt Anticipated Barriers to Discharge: None Identified Patient/Family Education Needs: Review discharge instructions, discuss Ask Me Three Transportation: EMS Plan: Anticipate Den will be discharged back home on hospice when her symptoms are controlled. She will follow up with the hospice providers and care team and transport via EMS coordinated by CM. CM will follow and assess for ongoing discharge concerns. Social Determinants of Health Screening Will the Patient Participate in the Screening?: Unable to obtain Do you worry about having a steady place to live?: choose not to answer
--- NOTE | 2024-07-20 12:24 | PDOC.CMIN ---
Date of service: 07/20/24 Time of Service: 12:25 Care Management Initial Assmt Initial Assessment Reason for Hospitalization: Intractable abdominal pain, chronic pain, constipation Functional Status/Living Situation Patient Presentation: Den was sitting on the edge of her bed when CM arrived. Den stated that she wants to go home today, as she feels much better. Den is living in [place] with her partner, Danis, in their single family home. Per report, Den is no longer on hospice but is still followed by palliative. Den states that she does not have any home services; new HH PT/STRETCH PRESS OPERATOR will be ordered. She states she no longer follows up with a PCP and does not want to be. Patient states, if I have medical issues then I will drink, smoke marijuana, or take aspirin. Den said that she already receives [facility], CM is sending referrals to [facility], and [facility] with patient permission. Currently, Danis does all the shopping but she is worried he wont be able to do this for much longer. Town of Residence: [place] Resides with: Spouse (Danis) Significant Other/Family: Out of area Caregiver/Guardian: Per patient, Danis and Den take care of each other Natural Supports: States Danis but no others. Employment Status: Retired Instrumental Activities of Daily Living (ADLs): Requires support Medications Medication Management: No Issues/Barriers identified (no medications) Physical Functioning/Mobility Assistive Device: has a FWW and cane, uses the cane when she goes out Advance Directives Advance Directives: Do you have an Advance Directive: N 06/18/23 09:58 AD On File at [facility]: N 06/18/23 09:58 Date Asked 01/21/24 01/21/24 14:56 AD Date Reviewed 07/19/24 07/19/24 20:30 COLST On File at [facility] Yes 06/18/23 09:58 COLST Date Scanned 04/16/23 06/18/23 09:58 Code Status Resuscitation Status DNR/DNI Portal Pt does not currently have a portal and education provided: No Insurance Coverage/Financial Issues Insurance: Medicare Part A & B Medicaid Care Team Visit Care Team Role Provider Type Deysi Lara NP NURSE PRACTITIONER Carla Park NP Primary Care Provider NURSE PRACTITIONER Lizbeth Buck Emergency Provider NURSE PRACTITIONER Randall Guo Admit Provider NON-[facility] STAFF PHYSICIAN Attending Provider Discharge Potential Discharge Needs: PT Evaluation and PCP F/U Appt Anticipated Barriers to Discharge: None Identified Patient/Family Education Needs: Review discharge instructions, discuss Ask Me Three Transportation: [facility] Transportation: Private vechicle Plan: Den will be discharged home today with new PT/STRETCH PRESS OPERATOR. It is recommended that she will follow up with her PCP, and discharge plan of care. CM sent referrals to [facility] and [facility]. Den will transport via [facility] Private car as coordinated by CM. Social Determinants of Health Screening Will the Patient Participate in the Screening?: Unable to obtain Do you worry about having a steady place to live?: choose not to answer PFSH All Active Problems Constipation (Chronic) Chronic abdominal pain (Chronic) Housing problems (Acute) Severely underweight adult (Acute) Psychological trauma history (Acute) Comfort measures only status (Acute) Hospice care patient (Acute) Opioid dependence with current use (Chronic) Opiate misuse (Acute) Protein calorie malnutrition (Acute) Encounter for hospice care discussion (Acute) Fatigue (Acute) Nausea (Acute) GERD (gastroesophageal reflux disease) (Chronic) Unintentional weight loss (Acute) Impaired instrumental activities of daily living (Acute) Dyspnea on exertion (Acute) History of sleep study (Acute) Sleep pattern disturbance (Acute) Palliative care patient (Acute) Vascular occlusion (Acute) Dyshidrosis (Acute) Chronic pain (Chronic) Depression (Chronic) Current smoker (Acute) Narcotic withdrawal (Acute) Anemia (Chronic) Medical History Palliative care encounter Constipation NSTEMI (non-ST elevated myocardial infarction) Peripheral arterial disease Physician orders for life-sustaining treatment (POLST) form indicates patient wish for ko-kma-frujpllbaqg status ACP (advance care planning) Hematemesis Hypertension COPD (chronic obstructive pulmonary disease) Respiratory failure with hypoxia Temporal lobe epilepsy Vitamin D deficiency Late effect of pelvic fracture Cachexia PTSD (post-traumatic stress disorder) GI bleed Helicobacter pylori gastritis Movement disorder Loss of vision Abdominal pain Chronic, continuous use of opioids Hx of drug withdrawal syndrome Seizures Social History Smoking/Tobacco Use Status: Former Tobacco Use Quit status: has quit before Second Hand Exposure: Yes Smoking risk assessment performed?: Yes Alcohol Intake: never Drug use: Daily Substance use type: marijuana Adopted: No Caregiver/Support person: Yes Foster care: No Household members: spouse Housing: house Number of Children: 1 number of grandchildren: 0 Communication Needs: Blind Education Level: middle school Do you need help understanding health information?: Often 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
--- NOTE | 2024-07-20 12:34 | W.PM.DS.N ---
Date of service: 07/20/24 Time of Service: 12:34 DS: Diagnosis Discharge Diagnosis (1) Chronic abdominal pain: Status: Chronic (2) Constipation: Status: Chronic (3) Opioid dependence with current use: Status: Chronic (4) GERD (gastroesophageal reflux disease): Status: Chronic (5) Depression: Status: Chronic (6) Anemia: Status: Chronic (7) COPD (chronic obstructive pulmonary disease): (8) PTSD (post-traumatic stress disorder): Discharge Plan Disposition Patient Disposition: Home W/Home Health Services Condition: Stable Discharge Details Reason For Visit: Intractable abdominal pain, chronic pain, constipa Admit Date/Time: 07/20/24 00:05 Admit Provider: Randall Guo Attending Provider: Randall Guo Primary Care Provider: Carla Park Hospital Course Hospital Course: This is an 78-year-old lady on chronic morphine for chronic abdominal pain now with acute abdominal pain and severe constipation though there is no obstruction. She will be treated with cathartics and possibly initiated on treatment for opioid-induced constipation though insurance coverage may be difficult to maintain this treatment. Long-term she needs more help at home and should consider hospice or hospice housing but is has not to leave her home with her pet dog and cat at home along with her disabled . She has no close children. She does want end-of-life care and is frustrated. She was admitted on observation to treat her constipation more aggressively and for licensed clinical social worker and case management to address her home situation. She has voiced no longer wanting to live but she denies suicidal ideation and did ask that her lunch be packed so she could take at home to eat at a later time. She is requesting discharge to home. her is being seen by [place] [facility] but they do not have daily health. Patient is being discharged to home with referral for new home health physical therapy for home safety eval, medical office receptionist, [facility], [facility]. discussed with DR Tang Home Meds and New Rx's Prescriptions: Continued albuterol sulfate 90 mcg/actuation HFA aerosol inhaler 1 - 2 inh INHALATION Q4H PRN (Reason: shortness of breath or wheezing) Qty: 8.5 12RF sennosides [senna] 8.6 mg tablet 8.6 mg PO BID PRN (Reason: constipation) Qty: 30 4RF food supplemt, lactose-reduced 0.04 gram- 1 kcal/mL liquid 237 ml PO QD-BID Qty: 5688 2RF ondansetron 4 mg tablet,disintegrating 4 mg PO Q4H PRN PRN (Reason: nausea and vomiting) Qty: 30 3RF Rx Instructions: hospice polyethylene glycol 3350 17 gram Powder In Packet 17 g PO DAILY PRN PRN (Reason: Constipation) Qty: 0 0RF No Action morphine 15 mg tablet 15 mg PO Q3H PRN MDD 8 tabs PRN (Reason: pain) Qty: 45 0RF Rx Instructions: keep track of daily use by keeping log Discharge Instructions Instructions: Constipation in adults Stand Alone Forms: Nursing Discharge Form Referrals: Carla Park NP [Primary Care Provider] - 07/30/24 3:00 pm Activity:: Activity as Tolerated Equipment/Supplies:: No Equipment Needed Diet:: As Tolerated Discharge Orders Discharge Orders: Discharge Order (Routine); Ordered 07/20/24 Ordered By: Deysi Lara Discharge Data Discharge Date/Time-TO BE ENTERED AT DEPARTURE: 07/20/24 13:45 DS: Summary Time Spent with Patient providing and/or coordinating discharge services: Less than 30 minutes Status at Discharge Functional status at discharge: independent ambulation Overall status at discharge: patient is progressing back to baseline Mental Status: mental status grossly normal Speech and Movement: speech and movement normal Mood: congruent mood Affect: normal affect Quality:SDOH Health Related Social Needs: No Data to Display Exam Narrative Exam Narrative: Cachectic frail chronically ill-appearing female of stated age no acute distress her head is atraumatic oral mucosa slightly dry neck full range of motion cardiovascular regular rate and rhythm respirations are even and unlabored diminished in the bases no wheezing abdomen is soft no guarding moves all extremities no peripheral edema neurologic she is awake alert oriented no focal deficits psychiatric denies suicidal ideation Psych Mental Status: mental status grossly normal Speech and Movement: speech and movement normal Mood: congruent mood Affect: normal affect DS: Data Vitals/I&O Vitals and I&O: Vital Signs Temperature 36.0 C L 07/20/24 07:29 Temperature Source Temporal Artery Scan 07/20/24 07:29 Pulse 96 H 07/20/24 07:29 Pulse Rhythm Regular 07/20/24 01:25 Respiratory Rate 16 07/20/24 07:29 Respiratory Effort Normal, Non-Labored 07/20/24 01:25 Respiratory Depth Normal 07/20/24 01:25 Respiratory Pattern Normal 07/20/24 01:25 Blood Pressure 96/85 L 07/20/24 07:29 Blood Pressure Mean 88 07/20/24 07:29 Blood Pressure Position Sitting 07/19/24 20:20 Pulse Oximetry 90 L 07/20/24 07:29 Oxygen Delivery Method Room Air 07/20/24 07:29 Oxygen Flow Rate 0 07/20/24 07:29 Pain Level 8 07/20/24 10:06 Intake & Output 07/19/24 07/20/24 07/20/24 23:59 11:59 23:59 Weight 36.8 kg 79.1 kg Other: Urine Appearance Clear Stool Size Small Stool Characteristics Formed Data Completed and Pending Labs on day of discharge: Labs from last 24 hours 07/20/24 07/19/24 06:20 20:45 WBC 4.98 6.15 RBC 4.54 5.13 Hgb 9.4 L 10.5 L Hct 31.2 L 35.3 L MCV 69 L 69 L MCH 20.7 L 20.5 L MCHC 30.1 L 29.7 L RDW 26.1 H 26.2 H Plt Count 508 H 566 H MPV 8.8 8.7 Immature Gran % 0.3 Neutrophils % 63.4 Lymphocytes % 22.1 Monocytes % 10.9 Eosinophils % 2.8 Basophils % 0.5 Nucleated RBC % 0.0 Absolute Neutrophils 3.90 Absolute Lymphocytes 1.36 Absolute Monocytes 0.67 Absolute Eosinophils 0.17 Absolute Basophils 0.03 RBC Morphology See Below Hypochromasia 1+ Poikilocytosis 1+ Anisocytosis 2+ Microcytosis 2+ VBG Lactate 1.0 Sodium 136 137 Potassium 3.8 3.6 Chloride 104 101 Carbon Dioxide 23.7 25.2 Anion Gap 8.3 10.8 BUN 13 13 Creatinine 0.8 0.8 Est GFR (CKD-EPI 2020) 74.44 74.44 Glucose 111 H 114 H Calcium 8.7 9.3 Magnesium 1.9 1.8 Total Bilirubin 0.3 0.3 AST 15 18 ALT 14 16 Alkaline Phosphatase 67 74 Total Protein 7.1 8.2 Albumin 3.3 L 3.8 Lipase 14 TSH 1.45 PFSH All Active Problems (Updated 07/21/24 @ 00:03 by DEVEN CERON) Constipation (Chronic) Chronic abdominal pain (Chronic) Housing problems (Acute) Severely underweight adult (Acute) Psychological trauma history (Acute) Comfort measures only status (Acute) Hospice care patient (Acute) Opioid dependence with current use (Chronic) Opiate misuse (Acute) Protein calorie malnutrition (Acute) Encounter for hospice care discussion (Acute) Fatigue (Acute) Nausea (Acute) GERD (gastroesophageal reflux disease) (Chronic) Unintentional weight loss (Acute) Impaired instrumental activities of daily living (Acute) Dyspnea on exertion (Acute) History of sleep study (Acute) Sleep pattern disturbance (Acute) Palliative care patient (Acute) Vascular occlusion (Acute) Dyshidrosis (Acute) Chronic pain (Chronic) Depression (Chronic) Current smoker (Acute) Narcotic withdrawal (Acute) Anemia (Chronic) Medical History Palliative care encounter Constipation NSTEMI (non-ST elevated myocardial infarction) Peripheral arterial disease Physician orders for life-sustaining treatment (POLST) form indicates patient wish for qa-syl-smytbepwhco status ACP (advance care planning) Hematemesis Hypertension COPD (chronic obstructive pulmonary disease) Respiratory failure with hypoxia Temporal lobe epilepsy Vitamin D deficiency Late effect of pelvic fracture Cachexia PTSD (post-traumatic stress disorder) GI bleed Helicobacter pylori gastritis Movement disorder Loss of vision Abdominal pain Chronic, continuous use of opioids Hx of drug withdrawal syndrome Seizures Social History Smoking/Tobacco Use Status: Former Tobacco Use Quit status: has quit before Second Hand Exposure: Yes Smoking risk assessment performed?: Yes Alcohol Intake: never Drug use: Daily Substance use type: marijuana Adopted: No Caregiver/Support person: Yes Foster care: No Household members: spouse Housing: house Number of Children: 1 number of grandchildren: 0 Communication Needs: Blind Education Level: middle school Do you need help understanding health information?: Often 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 Time Spent with Patient Time Spent with Patient: 45-69 minutes Time was spent: preparing to see the patient(eg.review tests), obtaining and/or reviewing separately otained hiistory, ordering medications,tests, procedures, referring, communicating with other health hospice spiritual care coordinator, indepentently interpreting results, counseling the patient and care coordination
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
--- NOTE | 2024-07-20 16:13 | CHAPLAIN ---
Den was resting in bed when I visited this morning. She remembered that we'd met during a previous admission. She was hoping to be discharged today (and was). Den speaks her mind about the care she receives and the care she chooses not to receive. She expressed her views about people, like Pope Primo, being kept alive by extreme measures. She is spiritual but not connected to any naif or naif community. Den lives in [place] with her partner Danis. She is followed by Palliative Care.
== END 2024-07-20 13:45 | disposition home health service (06) ==
LOC: ER 07-20 00:16 → MS 07-20 01:20
PROVIDERS: Admitting Provider Family Medicine; Emergency Provider Nurse Practitioner Family; PCP Nurse Practitioner; Responsible Provider Nurse Practitioner Acute Care; Visit Provider Family Medicine
DX: K59.03 Drug induced constipation (principal); R10.9 Unspecified abdominal pain; G89.29 Other chronic pain; F11.20 Opioid dependence, uncomplicated; K21.9 Gastro-esophageal reflux disease without esophagitis; F32.9 Major depressive disorder, single episode, unspecified; F43.10 Post-traumatic stress disorder, unspecified; Z79.899 Other long term (current) drug therapy; T40.2X5A Adverse effect of other opioids, initial encounter; D64.9 Anemia, unspecified; J44.9 Chronic obstructive pulmonary disease, unspecified; E46 Unspecified protein-calorie malnutrition; I25.2 Old myocardial infarction; I73.9 Peripheral vascular disease, unspecified; Z66 Do not resuscitate; E55.9 Vitamin D deficiency, unspecified; F12.90 Cannabis use, unspecified, uncomplicated; Z59.89 Other problems related to housing and economic circumstances
CPT/HCPCS: 00123; 36415; 36416; 80053; 82962; 83690; 85027; 96372; 99285; J1650; 74176; 83605; 83735; 84443; 85025; 99223; 99238; G0378; J2212; J3490

== ENCOUNTER 2024-07-31 11:56 | Emergency (ER) | payer MEDICARE, MEDICAID, SELFPAY ==
[2024-07-31] VITALS (19 sets, daily range): BP systolic 156–192; BP diastolic 88–103; PULSE 90–114; RESP 16–19; TEMP 36.8–36.9; O2SAT 95–100
--- NOTE | 2024-07-31 12:14 | ED.GENADUL_ITS ---
Discharge Plan Disposition Patient Disposition: Home Condition: Stable Discharge Details Clinical Impression: Chronic abdominal pain Primary Care Provider: Carla Park ED Provider: Yaya Jansen Home Meds and New Rx's Prescriptions: Continued albuterol sulfate 90 mcg/actuation HFA aerosol inhaler 1 - 2 inh INHALATION Q4H PRN (Reason: shortness of breath or wheezing) Qty: 8.5 12RF food supplemt, lactose-reduced 0.04 gram- 1 kcal/mL liquid 237 ml PO QD-BID Qty: 5688 2RF sennosides [senna] 8.6 mg tablet 8.6 mg PO BID PRN (Reason: constipation) Qty: 30 4RF polyethylene glycol 3350 17 gram powder in packet 8.6 g PO DAILY PRN PRN (Reason: Constipation) Qty: 14 0RF oxycodone 15 mg tablet 15 mg PO Q4H MDD 6tabs PRN (Reason: pain) Qty: 42 0RF Discharge Instructions Additional Instructions: Follow-up with your primary care provider and also palliative care. I would recommend taking a daily docusate and also MiraLAX. If you feel more ill or have severe worsening pain return to the emergency department for reevaluation. HPI General Mode of arrival: EMS . Date/Time Provider Initiated Documentation: 07/31/24 12:04 . Limitations to Documentation: no limitations . Information obtained by: patient . History of Present Illness 78 year old F presents to the emergency department with the chief complaint of abdominal pain and constipation, described as moderate, Patient started experiencing this year(s) (3) and it has been intermittent. No relieving factors improve symptom(s), No exacerbating factors reported . Patient notes denies chest pain, fever/chills and shortness of breath. Patient did receive the following treatments prior to arrival, none Related Data Home Medications ?Medication ?Instructions ?Recorded ?Confirmed albuterol sulfate 90 mcg/actuation 1 - 2 inh inhalation Q4H PRN 10/22/23 07/31/24 aerosol inhaler shortness of breath or wheezing #8.5 grams food supplemt, lactose-reduced 237 ml PO QD-BID #5,688 mL 07/28/24 07/31/24 0.04 gram-1 kcal/mL oral liquid oxycodone 15 mg tablet 15 mg PO Q4H PRN pain #42 tabs 07/28/24 07/31/24 polyethylene glycol 3350 17 gram 8.6 g PO DAILY PRN PRN 07/28/24 07/31/24 oral powder packet Constipation #14 ea sennosides 8.6 mg tablet (senna) 8.6 mg PO BID PRN constipation #30 07/28/24 07/31/24 tabs Previous Rx's ?Medication ?Instructions ?Recorded albuterol sulfate 90 mcg/actuation 1 - 2 inh inhalation Q4H PRN 10/22/23 aerosol inhaler shortness of breath or wheezing #8.5 grams food supplemt, lactose-reduced 237 ml PO QD-BID #5,688 mL 07/28/24 0.04 gram-1 kcal/mL oral liquid oxycodone 15 mg tablet 15 mg PO Q4H PRN pain #42 tabs 07/28/24 polyethylene glycol 3350 17 gram 8.6 g PO DAILY PRN PRN 07/28/24 oral powder packet Constipation #14 ea sennosides 8.6 mg tablet (senna) 8.6 mg PO BID PRN constipation #30 07/28/24 tabs Allergies Allergy/AdvReac Type Severity Reaction Status Date / Time Sulfa (Sulfonamide Allergy Severe Anaphylaxsi Verified 07/31/24 12:03 Antibiotics) s meperidine HCl (From Demerol) Allergy Intermediate Contraindicated, Verified 07/31/24 12:03 seizures phenytoin sodium (From Allergy Intermediate Contraindicated, Verified 07/31/24 12:03 Dilantin) seizures phenytoin sodium extended Allergy Intermediate Contraindicated, Verified 07/31/24 12:03 (From Dilantin) seizures amoxicillin Allergy Unknown unknown Verified 07/31/24 12:03 diazepam (From Valium) Allergy Unknown unknown Verified 07/31/24 12:03 morphine Allergy Other (See Verified 07/31/24 12:03 Comment) midazolam HCl (From Versed) AdvReac Intermediate Psychosis Verified 07/31/24 12:03 oxycodone AdvReac Intermediate weird and Uncoded 07/31/24 12:03 anxious feeling General Stated Complaint: Abd Prob CRISTO: 3 Review of Systems All systems reviewed & are unremarkable except as noted in HPI and below Constitutional Constitutional: Denies chills, Denies fever(s) and Denies weakness Cardiovascular Cardiovascular: Denies chest pain and Denies dyspnea Respiratory Respiratory: Denies cough and Denies dyspnea Gastrointestinal Gastrointestinal: Reports abdominal pain, Reports constipation, Denies nausea and Denies vomiting Neurologic Neurologic: Denies weakness Exam Const General: no acute distress Orientation: alert HENKS Head: normal to inspection Ears: external ears normal General nose exam: external nose normal Mouth: moist mucous membranes Eyes General: appearance normal, both eyes and all related structures Neck Neck: normal visual inspection Resp Effort & Inspection: normal respiratory effort and able to speak in complete sentences Cardio Rate: regular rate GI Palpation: soft and nontender Skin General skin exam: no rashes or lesions noted Neuro General: patient alert and patient oriented x3 Extrem General: normal to inspection Psych Mental Status: mental status grossly normal Course Vital Signs Vital signs: Vital Signs Temperature 36.9 C 07/31/24 11:57 Pulse 105 H 07/31/24 11:57 Respiratory Rate 16 07/31/24 11:57 Blood Pressure 192/103 H 07/31/24 11:57 Pulse Oximetry 100 07/31/24 11:57 Temperature 36.9 C 07/31/24 12:02 Temperature Source Oral 07/31/24 12:02 Pulse 105 H 07/31/24 12:02 Respiratory Rate 16 07/31/24 12:02 Blood Pressure 192/103 H 07/31/24 12:02 Blood Pressure Position Sitting 07/31/24 12:02 Pulse Oximetry 100 07/31/24 12:02 Oxygen Delivery Method Room Air 07/31/24 12:02 Oxygen Flow Rate 0 07/31/24 12:02 Pain Level 9 07/31/24 12:02 Medical Decision Making 6-year-old female with history of chronic constipation and abdominal pain for which she is on oral morphine and recent recently admitted for her chronic pain and constipation comes in with continued symptoms. She denies any changes in the symptoms, no fevers or vomiting. She is not sure when she last had a bowel movement. She is stable on arrival and has minimal lower abdominal tenderness currently. Says when she tries have a bowel movement she lower abdominal pain. I suspect her symptoms are due to her chronic pain and the opiate clinics and constipation. She had a CT on the which did not show any emergent findings. Will treat her symptoms with MiraLAX and docusate check labs and reassess. Labs shows no significant change from baseline. Patient stable and feels mildly improved. Her abdominal tenderness is very minimal with deep palpation in the left lower quadrant. Discussed observation admission versus discharge and she request discharge which I feel is reasonable especially given she has had a negative recent CT and hospitalization. She will follow-up with palliative care and her PCP and return precautions given Quality:SDOH Health Related Social Needs: No Data to Display PFSH All Active Problems (Updated 07/31/24 @ 14:12 by Yaya Jansen MD) Constipation (Chronic) Chronic abdominal pain (Chronic) Housing problems (Acute) Severely underweight adult (Acute) Psychological trauma history (Acute) Comfort measures only status (Acute) Hospice care patient (Acute) Opioid dependence with current use (Chronic) Opiate misuse (Acute) Protein calorie malnutrition (Acute) Encounter for hospice care discussion (Acute) Fatigue (Acute) Nausea (Acute) GERD (gastroesophageal reflux disease) (Chronic) Unintentional weight loss (Acute) Impaired instrumental activities of daily living (Acute) Dyspnea on exertion (Acute) History of sleep study (Acute) Sleep pattern disturbance (Acute) Palliative care patient (Acute) Vascular occlusion (Acute) Dyshidrosis (Acute) Chronic pain (Chronic) Depression (Chronic) Current smoker (Acute) Narcotic withdrawal (Acute) Anemia (Chronic) Medical History Palliative care encounter Constipation NSTEMI (non-ST elevated myocardial infarction) Peripheral arterial disease Physician orders for life-sustaining treatment (POLST) form indicates patient wish for ap-hme-[id number] status ACP (advance care planning) Hematemesis Hypertension COPD (chronic obstructive pulmonary disease) Respiratory failure with hypoxia Temporal lobe epilepsy Vitamin D deficiency Late effect of pelvic fracture Cachexia PTSD (post-traumatic stress disorder) GI bleed Helicobacter pylori gastritis Movement disorder Loss of vision Abdominal pain Chronic, continuous use of opioids Hx of drug withdrawal syndrome Seizures Social History Smoking/Tobacco Use Status: Former Tobacco Use Quit status: has quit before Second Hand Exposure: Yes Smoking risk assessment performed?: Yes Alcohol Intake: never Drug use: Daily Substance use type: marijuana Adopted: No Caregiver/Support person: Yes Foster care: No Household members: spouse Housing: house Number of Children: 1 number of grandchildren: 0 Communication Needs: Blind Education Level: middle school Do you need help understanding health information?: Often 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
[2024-07-31 13:09] LABS: Abs Immature Grans 0.02 10^3/uL (0.0-0.06); Absolute Basophil Count 0.04 10^3/uL (0.0-0.2); Absolute Eosinophil Count 0.02 10^3/uL (0.0-0.7); Absolute Lymphocyte Count 0.92 10^3/uL (1.2-3.4); Absolute Monocyte Count 0.65 10^3/uL (0.1-0.8); Absolute Neutrophil Count 6.97 10^3/uL (1.2-6.7); Basophils % 0.5 %; Eosinophils % 0.2 %; HCT 34.7 % (36.0-46.0); HGB 10.4 g/dL (11.2-15.7); Immature Grans % 0.2 %; Lymphocytes % 10.7 %; MCH 20.8 pg (27.0-33.0); MCV 69 fL (80-95); MPV 8.3 fL (8.0-11.0); Monocytes % 7.5 %; Neutrophils % 80.9 %; Platelet Count 635 10^3/uL (130-400); RBC 5.01 10^6/uL (3.93-5.22); RDW 24.3 % (11.7-14.6); RDW-SD 59.3 fL; WBC 8.62 10^3/uL (4.4-10.8)
[2024-07-31 13:23] LABS: Anisocytosis 2+; Diff Comment RBC Morph Reviewed; Microcytosis 1+; Polychromasia Present
[2024-07-31] MEDS: Docusate Sodium 100 MG/10 ML CUP PO (13:24)
[2024-07-31] MEDS: Polyethylene Glycol 3350 17 GM PACKET PO (13:24)
[2024-07-31] MEDS: Normal Saline 1,000 ML 1000 ML IV (13:25)
[2024-07-31] MEDS: HYDROmorphone 2 MG/ML SYR IVP (13:25)
[2024-07-31 13:26] LABS: ALT 19 U/L (14-59); AST 16 U/L (15-37); Albumin 3.4 g/dL (3.4-5.0); Alkaline Phosphatase 83 U/L (46-116); Anion Gap 9.8 mmol/L (3-11); BUN 12 mg/dL (7-18); Bilirubin, Direct 0.1 mg/dL (0.0-0.2); Bilirubin, Total 0.3 mg/dL (0.2-1.0); CO2 25.2 mmol/L (21.0-32.0); CREATININE 0.7 mg/dL (0.55-1.02); Calcium 8.7 mg/dL (8.5-10.1); Chloride 103 mmol/L (98-107); Estimated GFR 87.37 (mL/min/1.73m2); Glucose 131 mg/dL (74-106); Lipase 11 U/L (<78); Magnesium 1.9 mg/dL (1.8-2.4); Potassium 3.8 mmol/L (3.5-5.1); Sodium 138 mmol/L (136-145); Total Protein 7.7 g/dL (6.4-8.2)
--- NOTE | 2024-07-31 14:25 | NUR.NOTE ---
Nursing Note:Pt was being discharged and decided that she would rather wait in the waiting room for [facility] to come and get her. When the discharge was printed, the nurse (Alisia) went to the waiting room to discharge her and let her iknow that [facility] would be here at 1500 to pick her up. The patient then said that she was going to come back into the ED to lay down and that she was not going to sit up and wait another 45 minutes for her ride. The patient then got up from her chair in the waiting room and followed the nurse back in, even though she was told that she could not come back into the ED and lay down due to there being no beds for her to do so in. The patient came around the corner and I met her in the main ED and told her that she could not come in and lay back down and that she needed to catch her ride at the main entrance. If she was not there, they would not wait for her. She then proceeded to say that she was not and sat down on the floor. I asked the departmental secretary to call security. The patient then got back up and sat in a wheelchair, allowing another nurse to wheel her down to the Main entrance of the hospital. The providers in the provider room (Dr. Sanchez and Sarabjit Williamson) witnessed this occurrence, as well as the nurses and departmental secretary (Alisia Lutz, and Hyun) in the bubble.
== END 2024-07-31 14:27 | disposition home or self-care (01) ==
PROVIDERS: Emergency Provider Emergency Medicine; PCP Nurse Practitioner
DX: R10.9 Unspecified abdominal pain (principal); K59.00 Constipation, unspecified; G89.29 Other chronic pain; I10 Essential (primary) hypertension; J44.9 Chronic obstructive pulmonary disease, unspecified; I25.2 Old myocardial infarction; Z87.891 Personal history of nicotine dependence
CPT/HCPCS: 80053; 83690; 96361; 96374; 99284; 82248; 83605; 83735; 85025; J1171

== ENCOUNTER 2024-08-16 22:18 | Inpatient (IN) | payer MEDICARE, MEDICAID, SELFPAY ==
[2024-08-16] VITALS (15 sets, daily range): BP systolic 199–250; BP diastolic 86–122; PULSE 89–105; RESP 30; TEMP 37.3; O2SAT 98–100
--- NOTE | 2024-08-16 22:25 | W.ED.GENAD ---
Discharge Plan Disposition Patient Disposition: Home Condition: Stable Discharge Details Clinical Impression: Chronic abdominal pain, Palliative care patient, Comfort measures only status Primary Care Provider: Carla Park ED Provider: Santos Lott Home Meds and New Rx's Prescriptions: Continued albuterol sulfate 90 mcg/actuation HFA aerosol inhaler 1 - 2 inh INHALATION Q4H PRN (Reason: shortness of breath or wheezing) Qty: 8.5 12RF food supplemt, lactose-reduced 0.04 gram- 1 kcal/mL liquid 237 ml PO QD-BID Qty: 5688 2RF sennosides [senna] 8.6 mg tablet 8.6 mg PO BID PRN (Reason: constipation) Qty: 30 4RF polyethylene glycol 3350 17 gram powder in packet 8.6 g PO DAILY PRN PRN (Reason: Constipation) Qty: 14 0RF oxycodone 15 mg tablet 15 mg PO Q4H MDD 6tabs PRN (Reason: pain) Qty: 42 0RF Discharge Instructions Additional Instructions: You were seen for a worsening of your chronic abdominal pain as well as nausea and was treated with medications here with improvement. Please reach out to your primary care and/or palliative care for possible adjustment to your pain medication at home. You are strongly encouraged to continue your bowel regimen as well as to continue to stay hydrated. Return to ED for severe worsening pain, vomiting, other concerns. HPI General Mode of arrival: EMS. Date/Time Provider Initiated Documentation: 08/16/24 22:25. Limitations to Documentation: no limitations. Information obtained by: patient, RN notes reviewed and old records reviewed. HPI Narrative: Patient presents to ED with worsening left-sided abdominal pain. She has a palliative care patient with cancer and has been managing over the last couple of weeks with oxycodone and ondansetron. Pain has become much worse today and medications are not working. She is nauseated. She is having bowel movements and reports having 1 today. Constipation has been a problem in the past but is managed with MiraLAX and senna. She denies any fever. She denies chest pain or shortness of breath. I did review her palliative care notes. I have confirmed with her that at this point she is not looking for further diagnostics and would prefer to just be made comfortable. Related Data Home Medications ?Medication ?Instructions ?Recorded ?Confirmed albuterol sulfate 90 mcg/actuation 1 - 2 inh inhalation Q4H PRN 10/22/23 08/16/24 aerosol inhaler shortness of breath or wheezing #8.5 grams food supplemt, lactose-reduced 237 ml PO QD-BID #5,688 mL 07/28/24 08/16/24 0.04 gram-1 kcal/mL oral liquid polyethylene glycol 3350 17 gram 8.6 g PO DAILY PRN PRN 07/28/24 08/16/24 oral powder packet Constipation #14 ea sennosides 8.6 mg tablet (senna) 8.6 mg PO BID PRN constipation #30 07/28/24 08/16/24 tabs oxycodone 15 mg tablet 15 mg PO Q4H PRN pain #42 tabs 08/16/24 08/16/24 Previous Rx's ?Medication ?Instructions ?Recorded albuterol sulfate 90 mcg/actuation 1 - 2 inh inhalation Q4H PRN 10/22/23 aerosol inhaler shortness of breath or wheezing #8.5 grams food supplemt, lactose-reduced 237 ml PO QD-BID #5,688 mL 07/28/24 0.04 gram-1 kcal/mL oral liquid polyethylene glycol 3350 17 gram 8.6 g PO DAILY PRN PRN 07/28/24 oral powder packet Constipation #14 ea sennosides 8.6 mg tablet (senna) 8.6 mg PO BID PRN constipation #30 07/28/24 tabs oxycodone 15 mg tablet 15 mg PO Q4H PRN pain #42 tabs 08/16/24 Allergies Allergy/AdvReac Type Severity Reaction Status Date / Time Sulfa (Sulfonamide Allergy Severe Anaphylaxsi Verified 08/16/24 22:27 Antibiotics) s meperidine HCl (From Demerol) Allergy Intermediate Contraindicated, Verified 08/16/24 22:27 seizures phenytoin sodium (From Allergy Intermediate Contraindicated, Verified 08/16/24 22:27 Dilantin) seizures phenytoin sodium extended Allergy Intermediate Contraindicated, Verified 08/16/24 22:27 (From Dilantin) seizures amoxicillin Allergy Unknown unknown Verified 08/16/24 22:27 diazepam (From Valium) Allergy Unknown unknown Verified 08/16/24 22:27 morphine Allergy Other (See Verified 08/16/24 22:27 Comment) midazolam HCl (From Versed) AdvReac Intermediate Psychosis Verified 08/16/24 22:27 oxycodone AdvReac Intermediate weird and Uncoded 08/16/24 22:27 anxious feeling General CRISTO: 3 Exam Narrative Exam Narrative: Const: Very thin elderly female in NAD. VS per triage. HEENT: NC/AT. Normal facial exam. Neck: Supple. Trachea midline. Lungs: Normal respiratory effort. GI: Soft/ND Tender left abdomen. Neuro: A+O x 3. Normal speech, mentation. Cranial nerves II - XII grossly intact. No gross motor or sensory deficit. Ext: No C/C/E. Medical Decision Making Patient presenting to ED with uncontrolled pain and nausea. She has history of cancer and is being managed at home with oxycodone and ondansetron. She is followed by palliative care. Last palliative care note documents comfort measures. I brought this up and discussed with the patient this evening. She confirms DNR/DNI and that she does not wish to undergo further diagnostic testing, labs, imaging. At this point she is just looking for relief from her symptoms. She is noted to be hypertensive and tachycardic likely related to her pain. Will dose with IM prochlorperazine and IM hydromorphone to help manage symptoms short-term. 23:30 - Patient reports good improvement with pain. Still having fair amount of pain so we will give an oral dose of hydromorphone, 1 mg. Nausea has resolved though she did have 1 episode of emesis here, she now feels much better in regards to nausea. 00:15 - Patient much more comfortable and is good with plan for discharge home and contacting PCP and/or Palliative Care to discuss pain management. Encouraged to continue current bowel regimen to prevent constipation. Encouraged to drink fluids to stay hydrated. Return to ED for uncontrolled pain, persistent vomiting, other concerns. Medical Records Medical records reviewed: Yes I reviewed the patient's medical records. Medical records narrative: see [facility] All Active Problems (Updated 08/17/24 @ 00:20 by Santos Lott MD) Chronic abdominal pain (Acute) Constipation (Chronic) Chronic abdominal pain (Chronic) Housing problems (Acute) Severely underweight adult (Acute) Psychological trauma history (Acute) Comfort measures only status (Acute) Hospice care patient (Acute) Opioid dependence with current use (Chronic) Opiate misuse (Acute) Protein calorie malnutrition (Acute) Encounter for hospice care discussion (Acute) Fatigue (Acute) Nausea (Acute) GERD (gastroesophageal reflux disease) (Chronic) Unintentional weight loss (Acute) Impaired instrumental activities of daily living (Acute) Dyspnea on exertion (Acute) History of sleep study (Acute) Sleep pattern disturbance (Acute) Palliative care patient (Acute) Vascular occlusion (Acute) Dyshidrosis (Acute) Chronic pain (Chronic) Depression (Chronic) Current smoker (Acute) Narcotic withdrawal (Acute) Anemia (Chronic) Medical History Palliative care encounter Constipation NSTEMI (non-ST elevated myocardial infarction) Peripheral arterial disease Physician orders for life-sustaining treatment (POLST) form indicates patient wish for [id number] status ACP (advance care planning) Hematemesis Hypertension COPD (chronic obstructive pulmonary disease) Respiratory failure with hypoxia Temporal lobe epilepsy Vitamin D deficiency Late effect of pelvic fracture Cachexia PTSD (post-traumatic stress disorder) GI bleed Helicobacter pylori gastritis Movement disorder Loss of vision Abdominal pain Chronic, continuous use of opioids Hx of drug withdrawal syndrome Seizures Social History Smoking/Tobacco Use Status: Former Tobacco Use Quit status: has quit before Second Hand Exposure: Yes Smoking risk assessment performed?: Yes Alcohol Intake: never Drug use: Daily Substance use type: marijuana Adopted: No Caregiver/Support person: Yes Foster care: No Household members: spouse Housing: house Number of Children: 1 number of grandchildren: 0 Communication Needs: Blind Education Level: middle school Do you need help understanding health information?: Often 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
[2024-08-16] MEDS: HYDROmorphone 2 MG/ML SYR 1 MG IM (22:58)
[2024-08-16] MEDS: Prochlorperazine 10 MG/2 ML VIAL 5 MG IM (22:58)
[2024-08-16] MEDS: HYDROmorphone 2 MG TAB 1 MG PO (23:39)
[2024-08-17] VITALS (28 sets, daily range): BP systolic 192–232; BP diastolic 98–114; PULSE 90–103; RESP 18–22; TEMP 37.1–37.3; O2SAT 92–100
[2024-08-17] MEDS: HYDROmorphone 2 MG TAB PO (01:44)
[2024-08-17] MEDS: HYDROmorphone 2 MG/ML SYR 1 MG IVP ×5 (02:33→18:06)
[2024-08-17] MEDS: Ondansetron 4 MG/2 ML VIAL IVP (02:34)
--- NOTE | 2024-08-17 03:37 | HPE_ITS ---
Date of service: 08/17/24 Time of Service: 03:38 Assessment and Plan Assessment and plan (1) Chronic abdominal pain: Status: Chronic Assessment and plan: This is an 78-year-old lady with chronic abdominal pain and no clear etiology on her problem but is refusing further evaluation and wanted to stay at home with her who is also debilitated with end-of-life care. She is approaching comfort measures only but needs a better plan for home care. She is having nausea with vomiting and unable to take oral therapy presently and will be admitted for pain management with IV Dilaudid and IV Zofran. She thinks she may have esophageal cancer though she has no dysphagia and has had no evaluation for diagnosis. He was on hospice in the past but came off because of continued to survive but could go back on hospice at some point. This may not be possible at home with her not able to care for her. She does have children but they are not living nearby but should be engaged if possible. After being seen by Perative care, patient may be discharged home if she can take oral therapy for at least mucosal therapy for her pain. She has been on fentanyl in the past. He has had a problem with narcotic misuse in the past with her chronic abdominal pain. She is a DNR/DNI. (2) Nausea: Start date: 08/17/24 Status: Acute Assessment and plan: Zofran IV with this can be converted to sublingual for outpatient care. (3) Opiate misuse: Status: Chronic Assessment and plan: Patient has had problems with chronic narcotic therapy with her chronic abdominal pain without clear etiology. VPMS is appropriate for what she is being prescribed and urine drug screen will be performed. She does appear to have high risk for misuse and does self treat with marijuana. Her PCP and hospice can monitor her closely. She is not suicidal and overdose is unlikely. (4) GERD (gastroesophageal reflux disease): Status: Chronic Assessment and plan: Initiate PPI which may help with abdominal pain and nausea. (5) PTSD (post-traumatic stress disorder): Assessment and plan: This problem may palpation with high risk for misuse of self treatment. Monitor closely as outpatient. Consider medical therapy if available. (6) COPD (chronic obstructive pulmonary disease): Assessment and plan: Continue rescue inhaler as needed. History of Present Illness History of Present Illness Chief Complaint: Abdominal pain with nausea and vomiting. Narrative: This is an 78-year-old female patient who has chronic abdominal pain and she thinks she may have an esophageal cancer because of problems at times swallowing and advancing weight loss with cachexia. She is blind and cannot cook. Her also is ill and mostly bedridden with CLL and weakness. She was on hospice last year but ran out of her 6-month deadline and could go on hospice again if she progresses with her illness. She has never been diagnosed with cancer but does have chronic abdominal pain. She has had problems with narcotic misuse in the past treating her chronic abdominal pain. As stated she is cachectic and lost 20 pounds within this last year. She is not suicidal or depressed but states that she and her need to . They have no close children who live close and no caregivers though neighbors are helping. They do not want to leave the home. In the ED she was evaluated for abdominal pain and pain management as before discharge had nausea and vomiting and was unable to leave. She had increased abdominal pain and was given IV Dilaudid which will be continued. She also was given Zofran for nausea. She will be admitted for pain management and reconsultation with palliative care. She and her need a better care plan than their present situation. She is a DNR/DNI. Review of Systems Narrative: 13 point review of systems otherwise unrevealing or stable. Patient has no or respiratory complaints. She also has no cardiovascular complaints. Weight loss has been compressive. She has no peripheral edema. She has no focal neurological plaints other than being blind. [facility] All Active Problems (Updated 08/17/24 @ 03:52 by Randall Guo) Chronic abdominal pain (Chronic) Constipation (Chronic) Chronic abdominal pain (Chronic) Housing problems (Acute) Severely underweight adult (Acute) Psychological trauma history (Acute) Comfort measures only status (Acute) Hospice care patient (Acute) Opioid dependence with current use (Chronic) Opiate misuse (Chronic) Protein calorie malnutrition (Acute) Encounter for hospice care discussion (Acute) Fatigue (Acute) Nausea (Acute) GERD (gastroesophageal reflux disease) (Chronic) Unintentional weight loss (Acute) Impaired instrumental activities of daily living (Acute) Dyspnea on exertion (Acute) History of sleep study (Acute) Sleep pattern disturbance (Acute) Palliative care patient (Acute) Vascular occlusion (Acute) Dyshidrosis (Acute) Chronic pain (Chronic) Depression (Chronic) Current smoker (Acute) Narcotic withdrawal (Acute) Anemia (Chronic) Medical History (Updated 08/17/24 @ 03:52 by Randall Guo) Palliative care encounter Constipation NSTEMI (non-ST elevated myocardial infarction) Peripheral arterial disease Physician orders for life-sustaining treatment (POLST) form indicates patient wish for [id number] status ACP (advance care planning) Hematemesis Hypertension COPD (chronic obstructive pulmonary disease) Respiratory failure with hypoxia Temporal lobe epilepsy Vitamin D deficiency Late effect of pelvic fracture Cachexia PTSD (post-traumatic stress disorder) GI bleed Helicobacter pylori gastritis Movement disorder Loss of vision Abdominal pain Chronic, continuous use of opioids Hx of drug withdrawal syndrome Seizures Social History Smoking/Tobacco Use Status: Former Tobacco Use Quit status: has quit before Second Hand Exposure: Yes Smoking risk assessment performed?: Yes Alcohol Intake: never Drug use: Daily Substance use type: marijuana Adopted: No Caregiver/Support person: Yes Foster care: No Household members: spouse Housing: house Number of Children: 1 number of grandchildren: 0 Communication Needs: Blind Education Level: middle school Do you need help understanding health information?: Often current occupation: retired [employer] Pets and animals: Yes Pets and animals: cat(s) and dog(s) Do you think of yourself as: straight/heterosexual Current gender identity: female What is your relationship status?: How often do you talk on the phone with friends or family?: decline to answer How often do you get together with friends or relatives?: never Do you belong to any clubs or organized social groups?: no Panel score (0-1 are the most socially isolated patients): 1 Seatbelt use: always Do you feel safe at home: Yes Do you feel safe in your relationship?: Yes Meds Allergies and Home Medications Allergies Allergy/AdvReac Type Severity Reaction Status Date / Time Sulfa (Sulfonamide Allergy Severe Anaphylaxsi Verified 08/16/24 22:27 Antibiotics) s meperidine HCl (From Demerol) Allergy Intermediate Contraindicated, Verified 08/16/24 22:27 seizures phenytoin sodium (From Allergy Intermediate Contraindicated, Verified 08/16/24 22:27 Dilantin) seizures phenytoin sodium extended Allergy Intermediate Contraindicated, Verified 08/16/24 22:27 (From Dilantin) seizures amoxicillin Allergy Unknown unknown Verified 08/16/24 22:27 diazepam (From Valium) Allergy Unknown unknown Verified 08/16/24 22:27 morphine Allergy Other (See Verified 08/16/24 22:27 Comment) midazolam HCl (From Versed) AdvReac Intermediate Psychosis Verified 08/16/24 22:27 oxycodone AdvReac Intermediate weird and Uncoded 08/16/24 22:27 anxious feeling Home Medications ?Medication ?Instructions ?Recorded ?Confirmed ?Type albuterol sulfate 90 mcg/actuation 1 - 2 inh inhalatio n Q4H PRN 10/22/23 08/16/24 Rx aerosol inhaler shortness of breath or wheez ing #8.5 grams food supplemt, lactose-reduced 237 ml PO QD-BID #5,688 mL 07/28/24 08/16/24 Rx 0.04 gram-1 kcal/mL oral liquid polyethylene glycol 3350 17 gram 8.6 g PO DAILY PRN DC N 07/28/24 08/16/24 Rx oral powder packet Constipation #14 ea sennosides 8.6 mg tablet (senna) 8.6 mg PO BID PRN con stipation #30 07/28/24 08/16/24 Rx tabs oxycodone 15 mg tablet 15 mg PO Q4H PRN pain #42 ta bs 08/16/24 08/16/24 Rx Exam Narrative Exam Narrative: General: Patient is cachectic, appears older than stated age, moderate distress from her abdominal discomfort and distention of her abdomen. He is alert and oriented to person, place and time. HEENT: Normocephalic, eyes with pupils appear equal and reactive to light, sluggish. Extraocular movement intact and sclera anicteric. Oropharynx with dry mucosa. Neck: Supple without JVD. Back: Kyphotic without CVA tenderness. Lungs: Bronchovesicular breath sounds diffusely with no focalizing rales or rhonchi. No expiratory wheeze. Fair aeration. Breast: Exam deferred. Heart: Regular rate and rhythm with no appreciable murmur or gallop. Abdomen: Protuberant and firm to palpation with diffuse guarding but no rebound. No palpable hepatosplenomegaly. Bowel sounds positive in all quadrants. Genitalia/rectal: Exam deferred. Skin: Rough texture, decreased turgor, diffuse actinic changes over sun exposed areas. Normal color, warm and dry. Tattoos over back. Extremities: Without clubbing, cyanosis or pitting edema. Fair capillary refill. Neuro: Cranial nerves II through XII gross intact except for decreased to the patient having markedly decreased vision but able to reach for a cup at her bedside no focalizing motor deficits. No tremor. Psych: Anxious with pressured speech and depressed mood. No abnormal thought processes. Remote and recent memory appear to be grossly intact. Patient does have increase in meditation and at times is a vague historian. Results Last Vital Signs Temp 37.3 C 08/16/24 22:25 Pulse 94 H 08/17/24 02:46 Resp 30 H 08/16/24 22:25 BP 232/100 H 08/17/24 02:46 Pulse Ox 100 08/17/24 02:46 Time Spent Time spent with Patient: 55-74 minutes Time was spent: preparing to see the patient(eg.review tests), obtaining and/or reviewing separately otained hiistory, ordering medications,tests, procedures, indepentently interpreting results, counseling the patient and care coordination
--- NOTE | 2024-08-17 05:16 | W.PC.ACHO ---
Registration Status: REG ER Primary Language: Preferred Language: Lithuanian ED Information & Data Chief Complaint Abd Prob 08/16/24 22:25 Chief Complaint Abd Prob 08/16/24 22:21 Triage Note 10 of 10 stabbing pain in 08/16/24 22:21 abd getting worse throughout the day. Nausea, abnormal BM. Medical / Surgical History (Last Updated 08/17/24 @ 03:52 by Randall Guo) Palliative care encounter Constipation NSTEMI (non-ST elevated myocardial infarction) Peripheral arterial disease Physician orders for life-sustaining treatment (POLST) form indicates patient wish for [id number]-ruo-xiolkdqssar status ACP (advance care planning) Hematemesis Hypertension COPD (chronic obstructive pulmonary disease) Respiratory failure with hypoxia Temporal lobe epilepsy Vitamin D deficiency Late effect of pelvic fracture Cachexia PTSD (post-traumatic stress disorder) GI bleed Helicobacter pylori gastritis Movement disorder Loss of vision Abdominal pain Chronic, continuous use of opioids Hx of drug withdrawal syndrome Seizures Most Recent Vital Signs Temperature 37.3 C 08/16/24 22:25 Pulse 94 H 08/17/24 02:46 Respiratory Rate 30 H 08/16/24 22:25 Blood Pressure 232/100 H 08/17/24 02:46 Blood Pressure Mean 147 08/17/24 02:46 Blood Pressure Position Sitting 08/16/24 22:25 Pulse Oximetry 100 08/17/24 02:46 Oxygen Delivery Method Room Air 08/16/24 22:25 Oxygen Flow Rate 0 08/16/24 22:25 Allergies Sulfa (Sulfonamide Antibiotics) Allergy (Severe, Verified 08/16/24 22:27) Anaphylaxsis meperidine HCl (From Demerol) Allergy (Intermediate, Verified 08/16/24 22:27) Contraindicated, seizures seizures phenytoin sodium (From Dilantin) Allergy (Intermediate, Verified 08/16/24 22:27) Contraindicated, seizures seizures phenytoin sodium extended (From Dilantin) Allergy (Intermediate, Verified 08/16/24 22:27) Contraindicated, seizures seizures amoxicillin Allergy (Unknown, Verified 08/16/24 22:27) unknown diazepam (From Valium) Allergy (Unknown, Verified 08/16/24 22:27) unknown morphine Allergy (Verified 08/16/24 22:27) Other (See Comment) stops breathing midazolam HCl (From Versed) Adverse Reaction (Intermediate, Verified 08/16/24 22:27) Psychosis oxycodone Adverse Reaction (Intermediate, Uncoded 08/16/24 22:27) weird and anxious feeling IV IV Catheter Type [Left Forearm Saline Lock ] IV Catheter Gauge [Left 18 Forearm] Intake and Output - 24 Hour Total 08/16/24 22:06 thru 08/16/24 22:21 Weight 35.652 kg Falls Risk Assessment History of Falls No History 08/16/24 22:25 Contributing Factors No Factors 08/16/24 22:25 Ambulatory Aids Uses ambulatory device 08/16/24 22:25 Tubes/Lines None 08/16/24 22:25 Gait Evaluation No gait disturbance 08/16/24 22:25 Cognition No cognitive impairment 08/16/24 22:25 Fall Total Score 15 08/16/24 22:25 Level of Risk Standard/Low Risk 08/16/24 22:25 Problems (Last Updated 08/17/24 @ 03:52 by Randall Guo) Chronic abdominal pain (Chronic) Opiate misuse (Chronic) Nausea (Acute) GERD (gastroesophageal reflux disease) (Chronic) v v v v v v v v v Sending and/or Receiving Nurses: Please use comment section below to note any information pertinent to the patient hand-off not included above. Information / Comments: Hx cancer, 12/03 abd pain. High BP's, 18g lt Ac. 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 Pain improved after vomit. Decreased appetite. Potential GI bleed or Backed up. A&O x 4. Report received from: Singh ornelas @1500
[2024-08-17] MEDS: oxyCODONE 15 MG TAB PO ×3 (06:14→17:24)
[2024-08-17] MEDS: Senna TAB 1 TAB PO (06:14)
[2024-08-17] MEDS: Acetaminophen 325 MG TAB PO ×3 (06:15→22:18)
[2024-08-17] MEDS: Normal Saline Flush 10 ML SYR IVP ×3 (08:30→22:32)
[2024-08-17] MEDS: Pantoprazole 40 MG TABCR PO (09:26)
--- NOTE | 2024-08-17 09:53 | INITIAL_ITS ---
Date of service: 08/17/24 Time of Service: 14:49 Care Management Initial Assmt Initial Assessment Reason for Hospitalization: Chronic intractable abdominal pain Functional Status/Living Situation Patient Presentation: Den was lying in bed, when CM arrived. Den was admitted 07/19/24 with chronic abdominal pain. Den presented to the ED 07/31/24 and again today, with worsening left-sided abdominal pain; she is readmitted to [facility]. Since her discharge, Den has had a telehealth visit with palliative care. Per palliative, she now has increase home supports w/[facility]C program. Per report, her , Danis, is home and receiving end-of-life care. Den appeared to be sleepy, but pleasant. Den states, she doesn't want any treatments. She only wants to be comfortable and have pain control. CM communicated this with the provider and palliative. Den has a palliative consult and will likely be seen tomorrow; She is followed outpatient. She states, My perfect goal is for me and Danis to holding hands, at home. Den states, she doesn't not have much support in her home and it is hard for her to take care of herself; Den said, were in real bad shape. At this time, it is unclear that Den would have anyone to provide caregiver services. She and her , recieve MOW, and cannot do cooking for themselves. CM will continue to follow and aid in discharge planning needs. Town of Residence: [place] Resides with: Spouse (Danis) Significant Other/Family: Out of area Caregiver/Guardian: Per patient, Danis and Den take care of each other Natural Supports: States Danis but no others Employment Status: Retired Instrumental Activities of Daily Living (ADLs): Requires support Medications Medication Management: No Issues/Barriers identified Advance Directives Advance Directives: Do you have an Advance Directive: N , 13:48 AD On File at [facility]: N 07/20/24, 13:48 Date Asked 01/21/24 07/20/24, 13:48 AD Date Reviewed COLST On File at [facility] Yes 07/20/24, 13:48 COLST Date Scanned 04/16/23 07/20/24, 13:48 Code Status Resuscitation Status DNR/DNI Portal Pt does not currently have a portal and education provided: Yes Insurance Coverage/Financial Issues Insurance: Medicare Part A & B - [id number] Medicaid of [place] - [id number] Care Team Visit Care Team Role Provider Type Yesenia Muhammad APRN MD [facility] STAFF PHYSICIAN Carla Park, SANDRA Primary Care Provider NURSE PRACTITIONER Santos Lott MD Emergency Provider [facility] STAFF PHYSICIAN Randall Guo Admit Provider NON-[facility] STAFF PHYSICIAN Attending Provider Discharge Potential Discharge Needs: PT Evaluation and PCP F/U Appt Anticipated Barriers to Discharge: Medical Status Patient/Family Education Needs: Review discharge instructions, discuss Ask Me Three Transportation: RCT Plan: Anticipate, Den will be discharged home with a resumption of HH PT/[employer]. It is recommended that she will follow up with her PCP, and discharge plan of care. CM sent referrals to [facility] and [facility] at time of last admission. Den will transport via RCT private car as coordinated by CM. Social Determinants of Health Screening Will the Patient Participate in the Screening?: Declined to provide PFSH All Active Problems (Updated 08/17/24 @ 03:52 by Randall Guo) Chronic abdominal pain (Chronic) Constipation (Chronic) Chronic abdominal pain (Chronic) Housing problems (Acute) Severely underweight adult (Acute) Psychological trauma history (Acute) Comfort measures only status (Acute) Hospice care patient (Acute) Opioid dependence with current use (Chronic) Opiate misuse (Chronic) Protein calorie malnutrition (Acute) Encounter for hospice care discussion (Acute) Fatigue (Acute) Nausea (Acute) GERD (gastroesophageal reflux disease) (Chronic) Unintentional weight loss (Acute) Impaired instrumental activities of daily living (Acute) Dyspnea on exertion (Acute) History of sleep study (Acute) Sleep pattern disturbance (Acute) Palliative care patient (Acute) Vascular occlusion (Acute) Dyshidrosis (Acute) Chronic pain (Chronic) Depression (Chronic) Current smoker (Acute) Narcotic withdrawal (Acute) Anemia (Chronic) Medical History (Updated 08/17/24 @ 03:52 by Randall Guo) Palliative care encounter Constipation NSTEMI (non-ST elevated myocardial infarction) Peripheral arterial disease Physician orders for life-sustaining treatment (POLST) form indicates patient wish for [id number] status ACP (advance care planning) Hematemesis Hypertension COPD (chronic obstructive pulmonary disease) Respiratory failure with hypoxia Temporal lobe epilepsy Vitamin D deficiency Late effect of pelvic fracture Cachexia PTSD (post-traumatic stress disorder) GI bleed Helicobacter pylori gastritis Movement disorder Loss of vision Abdominal pain Chronic, continuous use of opioids Hx of drug withdrawal syndrome Seizures Social History Smoking/Tobacco Use Status: Former Tobacco Use Quit status: has quit before Second Hand Exposure: Yes Smoking risk assessment performed?: Yes Alcohol Intake: never Drug use: Daily Substance use type: marijuana Adopted: No Caregiver/Support person: Yes Foster care: No Household members: spouse Housing: house Number of Children: 1 number of grandchildren: 0 Communication Needs: Blind Education Level: middle school Do you need help understanding health information?: Often current occupation: retired [employer] Pets and animals: Yes Pets and animals: cat(s) and dog(s) Do you think of yourself as: straight/heterosexual Current gender identity: female What is your relationship status?: How often do you talk on the phone with friends or family?: decline to answer How often do you get together with friends or relatives?: never Do you belong to any clubs or organized social groups?: no Panel score (0-1 are the most socially isolated patients): 1 Seatbelt use: always Do you feel safe at home: Yes Do you feel safe in your relationship?: Yes Readmission Within the Past 30 Days Yes or No: Yes Date of First Admission Date of 1st Admission: 07/20/24 Date of this Admission Date of Admission: 08/16/24 This admission was: Through ED Office Visit Since 1st Admission Have you seen your PCP in the office since discharge?: No Had an appointment Been Scheduled?: No Date of Scheduled Appointment: I dont have an doctor anymore Describe barriers for scheduling or getting an appointment: Does not want to see a doctor anymore. Speicalist Appointments Have you seen any other specialist since your 1st Admission?: Yes Date you saw the Specialist: 07/28/24 Specialist Seen: palliative I. Interview patient and/or Family Difficulty reaching your doctor or getting an office appt?: No Have you had trouble purchasing/ or taking medication?: No Have you had trouble with getting meals at home?: Yes Describe your typical meals since you have been home: meals on wheels Did you feel ready for discharge when you left the last time: Yes Were services received that you thought were set up on disch: No What services were received?: Thought HH was coming and didnt Reason there were no orders at discharge: Provider put in HH orders, but they reportedly never came Did you call your physician beore you came to the ED?: No Did your physician tell you to come in?: No How do you think you became sick enough to come back?: Im dying and old If the patient had a VNA ordered Did the patient have a VNA order?: Yes Did you call the VNA before you came?: No Did the VNA tell you to come to the hospital?: No Do you know if the VNA called your physician?: No ED visits How many ED visits in the past 12 months: 7 Assessment for Readmission Summary of readmission circumstances, based upon interviews: Den continues to be in pain and would like comfort directed care.
--- NOTE | 2024-08-17 14:43 | PGE_ITS ---
Date of Service Date of service: 08/18/24 Time of Service: 09:19 Assessment and Plan Assessment and plan (1) Chronic abdominal pain: Status: Chronic Assessment and plan: CT abd on 07/19 - possible rectal mass- refusing further evaluation or Dx endoscopy -biopsy Seen by palliative with question re: comfort measures Needs a better plan for home care- was self adjusting fentanyl patches and refusing to see actual PCP Pain management with IV Dilaudid and IV Zofran- now on oral hydromorphone and titration of fentanyl patch with plan with palliative care for possble SNF to which she was agreeable today Thinks she may have esophageal cancer but no evaluation for diagnosis, lose association the her father having had this Dx and passing. On hospice in the past but came off because of continued to survive- Should consider go back on hospice at some point but has no home caregiver; children but they are not living nearby. Option to be discharge home if not meeting SNF criteria - consideration for if she can take oral therapy for at least mucosal therapy for her pain. She has been on fentanyl in the past. He has had a problem with narcotic misuse in the past with her chronic abdominal pain. She is a DNR/DNI. Surgical consult: Met with Dr. Braun on 08/17 refusing interventions - despite education provided at earlier meeting with this provider regarding that such interventions could lead to reduced pain (2) Nausea: Start date: 08/17/24 Status: Acute Assessment and plan: ongoing Zofran (3) Opiate misuse: Status: Chronic Assessment and plan: Patient has had problems with chronic narcotic therapy with her chronic abdominal pain without clear etiology. VPMS is appropriate for what she is being prescribed and urine drug screen will be performed. She does appear to have high risk for misuse and does self treat with marijuana. Her PCP and hospice can monitor her closely. She is not suicidal and overdose is unlikely, but mentioned on 08/17 that she would kill herself if pain was unbearable Was on fentanyl patch and mentioned that she self-adjusted dosing previously (4) GERD (gastroesophageal reflux disease): Status: Chronic Assessment and plan: PPI which may help with abdominal pain and nausea. (5) PTSD (post-traumatic stress disorder): Assessment and plan: TOngoing high risk for misuse of self treatment. (6) COPD (chronic obstructive pulmonary disease): Assessment and plan: Continue rescue inhaler as needed. Discussed with Dr Raser Subjective Subjective Patient reports: still having pain, tolerating liquids well, tolerating a regular diet, voiding w/o difficulty, flatus, no bowel movement and nausea; denies vomiting, shortness of breath or fever Exam Narrative Exam Narrative: Frailed elderly female , ongoing c/o of lower ABD groin pain minimum 5/10, non- focal, moves all 4 ext, clear lungs and unlabored breathing, heart is regular , S1, S2, no murmur, Abdomen is scaphoid, soft with lower quadrant tenderness, no CVA tenderness Objective Last Vital Signs Temp 37.1 C 08/17/24 05:56 Pulse 103 H 08/17/24 05:56 Resp 22 08/17/24 05:56 BP 214/103 H 08/17/24 05:56 Pulse Ox 100 08/17/24 05:56 Time Spent with Patient Time Spent with Patient: >50 minutes Time was spent: preparing to see the patient(eg.review tests), obtaining and/or reviewing separately otained hiistory, ordering medications,tests, procedures, referring, communicating with other health wound care specialist, indepentently interpreting results, counseling the patient and care coordination
--- NOTE | 2024-08-17 15:41 | PHACLINREV_ITS ---
Pharmacy Admission Review Admission Clinical Review Admission Pharmacy Review: Nausea (Acute) Sulfa (Sulfonamide Antibiotics) Allergy (Severe, Verified 08/16/24 22:27) Anaphylaxsis meperidine HCl (From Demerol) Allergy (Intermediate, Verified 08/16/24 22:27) Contraindicated, seizures phenytoin sodium (From Dilantin) Allergy (Intermediate, Verified 08/16/24 22:27) Contraindicated, seizures phenytoin sodium extended (From Dilantin) Allergy (Intermediate, Verified 07/26 05/18 22:27) Contraindicated, seizures amoxicillin Allergy (Unknown, Verified 08/16/24 22:27) unknown diazepam (From Valium) Allergy (Unknown, Verified 08/16/24 22:27) unknown morphine Allergy (Verified 08/16/24 22:27) Other (See Comment) midazolam HCl (From Versed) Adverse Reaction (Intermediate, Verified 08/16/24 22:27) Psychosis oxycodone Adverse Reaction (Intermediate, Uncoded 08/16/24 22:27) weird and anxious feeling Resuscitation Status DNR/DNI Height 5 ft 4 in Weight 35.6 kg Pharmacy Admission Review Renal Dosing Medications needing adjustments: Intervened (CrCl 25.16 mL/min) List of meds needing interventions: Reached out to provider regarding oxycodone and hydromorphone doses. Recommendation for oxycodone in patients with CrCl < 30 - Administer 50% of usual dose no more frequently than every 8 hours (Current order is 15mg q4h). Recommendations for hydromorphone - Administer 25% of usual initial dose and extend dosing interval by 25% to 50% (current order is 1mg q2h). Waiting to hear back from provider. Anticoagulation DVT Prophylaxis: Reviewed (TEDs) Opiate Usage Evaluate Pain Scale/Pains Meds: Reviewed (hydromorphone 1mg IVP q2h PRN - 6mg / 24 hrs, oxycodone 15mg q4h PRN - no doses given) Scheduled Bowel Reg ordered if on Opiates?: No (PRN docusate/Miralax/Annemarie) Relevant Labs Electrolytes, C-Reactive P, ESR: Reviewed (No labs) Cardiac Review Cardiac Review: Blood Pressure 214/103 0556 Blood Pressure 214/103 0552 Blood Pressure 221/110 0516 Blood Pressure 221/110 0445 Blood Pressure 219/107 0431 Blood Pressure 219/114 0413 Blood Pressure 216/105 0401 BP, HR, EF%: Reviewed (HR 103) QTc Review QTc: Reviewed (511 from 12/23/23 - most recent EKG on file) List meds needing interventions: Current medications are okay IV to PO Switch IV Medications: Reviewed (hydromorphone and ondansetron) Home Meds Home Med List reviewed: Reviewed Current Meds Current Medication Order Review: Intervened Comments: Added 2nd PRN to hydromorphone, Zofran, oxycodone and Senna orders per pharmacy protocol Changed IV ED access order
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
[2024-08-17] MEDS: fentaNYL 25 MCG PATCH TD (20:01)
[2024-08-17] MEDS: fentaNYL 100 MCG/2 ML VIAL 50 MCG IVP ×2 (20:01→22:32)
[2024-08-18] MEDS: HYDROmorphone 2 MG/ML SYR IVP ×5 (01:45→14:32)
[2024-08-18] MEDS: Normal Saline Flush 10 ML SYR IVP ×5 (01:45→23:02)
--- NOTE | 2024-08-18 07:28 | NUR.NOTE ---
on initial morning round pt stated that she was in pain 5/10 and requested pain medication. tylenol and dilaudid was offered, however, pt started yelling that it (dilaudid) gives her a headache and tylenol doesnt help all what you want is torturing people! i dont want anything! I hope you enjoy it!'
--- NOTE | 2024-08-18 07:36 | NUR.NOTE ---
Nursing Note: pt refuses assessment and to take medications. provider notified
[2024-08-18 10:12] LABS: ALT 15 U/L (14-59); AST 12 U/L (15-37); Albumin 3.4 g/dL (3.4-5.0); Alkaline Phosphatase 63 U/L (46-116); Anion Gap 10.5 mmol/L (3-11); BUN 12 mg/dL (7-18); Bilirubin, Total 0.2 mg/dL (0.2-1.0); CO2 24.5 mmol/L (21.0-32.0); CREATININE 0.7 mg/dL (0.55-1.02); Chloride 102 mmol/L (98-107); Estimated GFR 87.37 (mL/min/1.73m2); Glucose 134 mg/dL (74-106); Potassium 3.9 mmol/L (3.5-5.1); Sodium 137 mmol/L (136-145); Total Protein 7.5 g/dL (6.4-8.2)
[2024-08-18] MEDS: fentaNYL 100 MCG/2 ML VIAL 50 MCG IVP (11:33)
[2024-08-18] MEDS: Ondansetron 4 MG/2 ML VIAL IVP (12:24)
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
--- NOTE | 2024-08-18 13:36 | W.NUTCONSULT ---
Date of service: 08/18/24 Time of Service: 11:00 Nutritional Consult ASSESSMENT: received nutrition consult request for patient regarding low BMI (13.5 currently.) Visited with patient today who was engaged and sitting on bed. She was living at home with (who she reports is very ill) and states they just started to get meals on wheels - doesn't care for it much. She reports unable to do much food preparation at home and no family/support for help. Asked what she eats at home usually and she answered meat, potatoes and gravy. She reports being starving on clear liquid diet that was ordered on admission. Diet advanced at lunch to soft and bite size - pt ordered diced up chicken and mashed potatoes with gravy and a custard. After discussion she would be open to a high protein/kcal ONS at 2pm nourishment time. During our conversation she made repeated references to wanting/being ready to . It appears palliative care plans on seeing her tomorrow to define her wishes. Total protein and albumin labs wnl today. Electrolytes wnl. Weight hx: highest weight on record is 49.9kg back in 2014. Pt <40kg since about 6 months ago and has lost ~7kg in just about 2 years time. Estimated energy needs: 1246-1425kcals (35-40kcals/kg), 53g protein (1.5g/kg) and 1425mL fluid (1mL per required kcal) NUTRITIONAL DIAGNOSIS: moderate malnutrition related to inability to consistently prepare meals adequate kcals and nutrition, low appetite and chronic abdominal pain. INTERVENTION: Will continue to provide preferred food choices on menu to patient along with encouraging ONS at 2pm nourishment time. Depending on how palliative consult goes, may consider ordering liquid protein concerntrate TID to be administered by nursing for increased compliance. MONITORING AND EVALUATION: Will monitor weight and po intake closely, as well as direction of care post palliative consult as patient current wishes seem to lean towards comfort care measures only. Time Spent in Nutritional Counseling and Treatment: 10 min
--- NOTE | 2024-08-18 13:48 | CMPROGNOTE_ITS ---
Date of service: 08/18/24 Time of Service: 15:02 Care Management Progress Note Progress Note Text Progress Note Text: Den was lying in bed, when CM arrived. She states, she is doing real bad today. Den states, I am in agony, I'm dying. Den meets inpatient criteria due to IV pain med requirement. Den has requested to be placed in fci, CM briefly explained what would qualify her which appeared to agitate Den causing her to yell and use profanity; CM requested a PT and OT consult. Den met with palliative today, as well. CM will continue to follow. Discharge Potential Discharge Needs: Consult Consult Services Needed: Palliative and Other (OT), PT Evaluation and PCP F/U Appt Anticipated Barriers to Discharge: Medical Status and Other (Self-care needs/med compliance ) Patient/Family Education Needs: Review discharge instructions, discuss Ask Me Three Transportation: Private vehicle Plan: Anticipate, Den will be discharged home with a resumption of HH PT/FOOD ORDER DELIVERY RUNNER vs SNF. It is recommended that she will follow up with her PCP, and discharge plan of care. CM sent referrals to [facility] and [facility] at time of last admission. Den will transport via [facility] private car as coordinated by CM. CM will continue to follow. Social Determinants of Health Screening Will the Patient Participate in the Screening?: Declined to provide
[2024-08-18] MEDS: Acetaminophen 325 MG TAB PO ×2 (13:54→21:59)
[2024-08-18 14:38] VITALS: BP 156/87; PULSE 90; TEMP 36.9; O2SAT 100
[2024-08-18] MEDS: HYDROmorphone 4 MG TAB 6 MG PO ×2 (16:07→20:19)
[2024-08-18] MEDS: fentaNYL 50 MCG PATCH TD (16:07)
[2024-08-18 16:26] LABS: ALT 17 U/L (14-59); AST 14 U/L (15-37); Albumin 3.5 g/dL (3.4-5.0); Alkaline Phosphatase 68 U/L (46-116); BUN 13 mg/dL (7-18); Bilirubin, Total 0.2 mg/dL (0.2-1.0); CREATININE 0.9 mg/dL (0.55-1.02); Calcium 9.2 mg/dL (8.5-10.1); Chloride 102 mmol/L (98-107); Estimated GFR 64.63 (mL/min/1.73m2); Glucose 123 mg/dL (74-106); Potassium 4.6 mmol/L (3.5-5.1); Sodium 135 mmol/L (136-145); Total Protein 7.7 g/dL (6.4-8.2)
[2024-08-18 16:33] LABS: Abs Immature Grans 0.03 10^3/uL (0.0-0.06); Absolute Basophil Count 0.03 10^3/uL (0.0-0.2); Absolute Eosinophil Count 0.03 10^3/uL (0.0-0.7); Absolute Lymphocyte Count 0.99 10^3/uL (1.2-3.4); Absolute Neutrophil Count 7.48 10^3/uL (1.2-6.7); Basophils % 0.3 %; Eosinophils % 0.3 %; HCT 29.5 % (36.0-46.0); Immature Grans % 0.3 %; Lymphocytes % 10.8 %; MCH 20.6 pg (27.0-33.0); MCHC 30.5 % (32.0-36.0); MCV 68 fL (80-95); MPV 8.8 fL (8.0-11.0); Monocytes % 6.6 %; Neutrophils % 81.7 %; Platelet Count 673 10^3/uL (130-400); RBC 4.36 10^6/uL (3.93-5.22); RDW-SD 50.6 fL; WBC 9.16 10^3/uL (4.4-10.8)
[2024-08-18 16:55] LABS: Anisocytosis 2+; Diff Comment Diff Reviewed; Hypochromasia 1+; Microcytosis 1+
--- NOTE | 2024-08-18 16:55 | PT.INNT ---
PT Notes Visit Reasons: Chronic intractable abdominal pain, Palliative car Attempted to see Den Perez but she believed that she does not have any issues with walking. She politely refused PT services and even danced for this provider to show that she could safely manage her mobility. She pointed out that she is all set with where she is at mobility-l[facility] as long as her pain is managed well. She did agree to the OT evaluation to document her dependence with cooking, bathing, medication management, and chore management. She verbalized need to go to a setting where instrumental ADL performance would be provided. She does not feel safe going home at this time. Patient was seen from 16:26-16:50 but no charge was billed.
[2024-08-18] MEDS: fentaNYL 100 MCG/2 ML VIAL 25 MCG IVP ×4 (17:11→23:02)
[2024-08-18 20:34] VITALS: BP 167/75; PULSE 89; RESP 18; TEMP 37.2; O2SAT 99
[2024-08-19] MEDS: Melatonin 3 MG TAB 6 MG PO (00:58)
[2024-08-19] MEDS: fentaNYL 100 MCG/2 ML VIAL 25 MCG IVP ×7 (00:59→22:47)
[2024-08-19] MEDS: Normal Saline Flush 10 ML SYR IVP ×3 (00:59→19:26)
[2024-08-19] MEDS: HYDROmorphone 4 MG TAB 6 MG PO ×3 (02:48→13:44)
[2024-08-19] MEDS: Acetaminophen 325 MG TAB PO ×4 (03:19→19:24)
[2024-08-19 07:31] LABS: Abs Immature Grans 0.07 10^3/uL (0.0-0.06); Absolute Basophil Count 0.04 10^3/uL (0.0-0.2); Absolute Eosinophil Count 0.15 10^3/uL (0.0-0.7); Absolute Lymphocyte Count 1.46 10^3/uL (1.2-3.4); Absolute Monocyte Count 0.85 10^3/uL (0.1-0.8); Basophils % 0.4 %; Eosinophils % 1.4 %; HCT 30.8 % (36.0-46.0); HGB 9.2 g/dL (11.2-15.7); Immature Grans % 0.6 %; Lymphocytes % 13.3 %; MCH 20.3 pg (27.0-33.0); MCHC 29.9 % (32.0-36.0); MCV 68 fL (80-95); MPV 8.8 fL (8.0-11.0); Monocytes % 7.8 %; Neutrophils % 76.5 %; RBC 4.53 10^6/uL (3.93-5.22); RDW-SD 50.3 fL; WBC 10.96 10^3/uL (4.4-10.8)
[2024-08-19 07:38] LABS: Absolute Neutrophil Count 8.38 10^3/uL (1.2-6.7)
[2024-08-19 08:16] LABS: Anisocytosis 1+; Microcytosis 2+
[2024-08-19] MEDS: Pantoprazole 40 MG TABCR PO (08:16)
[2024-08-19 08:22] LABS: Platelet Count 763 10^3/uL (130-400)
--- NOTE | 2024-08-19 09:11 | PDOC.CMPRO ---
Date of service: 08/19/24 Time of Service: 09:37 Care Management Progress Note Progress Note Text Progress Note Text: CM met with Den during breakfast this morning. She was pleasant and willing to engage in conversation, today. Per RN, Den states, she no longer wants to go to a SNF; She restated this, to this mortgage or loan underwriter. Per Den, she wants to go home, when medically indicated. She states, I have no pain medication at home so without it, I will have EMS bring me back here. She is agreeable to imaging today if medically indicated. She states, she would prefer least invasive care, including no concentrate. She states, she would like it so she can have a diagnosis, to be placed on official LABORATORY HELPER and go home with pain med management. As agreed upon by provider, she will have a mental health screening; CM notified [facility]. Per NK, she does not have a SI plan but refused to answer most of the questions. Per OT, she is high risk for readmission d/t her pain and on going medical issues which she is denying all further assessments. If pt has assistance in her home with her ADL/IADLs OT does feel that she will be able to return home. Medication management assistance would be the biggest issue at this time due to her increased pain. Den is agreeable to LINA BETANCUR, RN when she does go home, and is followed by palliative. She is an established patient at [facility] and her current provider is Hermilo Villalba. CM will continue to follow. Discharge Potential Discharge Needs: Consult Consult Services Needed: Palliative and Other (Mental Health ), PCP F/U Appt and Surgical F/U Appt Anticipated Barriers to Discharge: Medical Status and Other (Self-care needs/med compliance ) Patient/Family Education Needs: Review discharge instructions, discuss Ask Me Three Transportation: [facility] Plan: Anticipate, Den will be discharged home with a new HH RN/[employer]. It is recommended that she will follow up with her PCP, and discharge plan of care. CM sent referrals to [facility] at time of last admission and again to [facility] for assistance with nursing home medicaid applications. Den will transport via [facility] by private car as coordinated by CM. CM will continue to follow. Social Determinants of Health Screening Will the Patient Participate in the Screening?: Declined to provide
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
[2024-08-19] MEDS: Ondansetron 4 MG/2 ML VIAL IVP (15:04)
[2024-08-19] MEDS: fentaNYL 100 MCG/2 ML VIAL 50 MCG IVP (15:38)
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
--- NOTE | 2024-08-19 16:53 | CHAPLAIN ---
Den was in bed when I visited, wearing her own pajamas. We remembered each other from a previous admission. Den complained of significant pain, although she said staff is trying to get it under control. Care Management is working to get more supports in at home for Den and Dnais. According to Care Management notes, Danis is receiving end of life care at home. I will continue to visit.
[2024-08-19] MEDS: HYDROmorphone 2 MG/ML SYR IVP ×2 (16:55→20:34)
--- NOTE | 2024-08-19 19:15 | W.PM.PROGNOT ---
Date of Service Date of service: 08/19/24 Time of Service: 19:15 Assessment and Plan Assessment and plan (1) Chronic abdominal pain: Status: Chronic Assessment and plan: CT abd on 07/19 - possible rectal mass- refusing further evaluation or Dx endoscopy -biopsy Surgical consult: Patient refused exam please read note and reconsult if the patient changes her mind -focus on an aggressive bowel regimen with osmotic laxatives such as MiraLAX, and rectal irrigation with mineral oil or soapsuds enemas. Seen by palliative: Please read notes Multimodal pain management: Fentanyl patch minimum 50 mcg adjust as needed to meet requirement and as needed hydromorphone progressing to oral for discharge - IV fentanyl for breakthrough pain Thinks she may have esophageal cancer but no evaluation for diagnosis, lose association the her father having had this Dx and passing. History of hospice care but due to survival she was discharged Option to be discharge home if not meeting SNF criteria - consideration for if she can take oral therapy for at least mucosal therapy for her pain. She has been on fentanyl in the past, has had a problem with narcotic misuse in the past with her chronic abdominal pain mentioned that now she is better educated and that it will not happen again. (2) Nausea: Start date: 08/17/24 Status: Acute Assessment and plan: ongoing Zofran (3) Opiate misuse: Status: Chronic Assessment and plan: Patient has had problems with chronic narcotic therapy with her chronic abdominal pain without clear etiology. VPMS is appropriate for what she is being prescribed and urine drug screen will be performed. She does appear to have high risk for misuse and does self treat with marijuana. Her PCP and hospice can monitor her closely. She is not suicidal and overdose is unlikely, but mentioned on 08/17 that she would kill herself if pain was unbearable Mental health consult completed today and the patient was cleared as she has no plan to kill self (4) GERD (gastroesophageal reflux disease): Status: Chronic Assessment and plan: Ongoing PPI which may help with abdominal pain and nausea. (5) PTSD (post-traumatic stress disorder): Assessment and plan: TOngoing high risk for misuse of self treatment. (6) COPD (chronic obstructive pulmonary disease): Assessment and plan: Continue rescue inhaler as needed. Discussed with Dr Tang Subjective Subjective Patient reports: still having pain (Seen control in the morning but worsening in the afternoon), tolerating liquids well, tolerating a regular diet, voiding w/o difficulty and bowel movement; denies diarrhea, nausea, vomiting, shortness of breath or fever Exam Narrative Exam Narrative: Alert oriented x 3 no focal deficit S1-S2 regular heart, clear lungs unlabored breathing, abdomen is nondistended soft lower quadrants tenderness, no CVA tenderness, moves all 4 extremities Objective Last Vital Signs Temp 37.2 C 08/18/24 20:34 Pulse 89 08/18/24 20:34 Resp 18 08/18/24 20:34 BP 167/75 H 08/18/24 20:34 Pulse Ox 99 08/18/24 20:34 Laboratory Results - last 24 hr 08/19/24 06:28 WBC 10.96 H RBC 4.53 Hgb 9.2 L Hct 30.8 L MCV 68 L MCH 20.3 L MCHC 29.9 L RDW 21.0 H Plt Count 763 H* MPV 8.8 Immature Gran % 0.6 Neutrophils % 76.5 Lymphocytes % 13.3 Monocytes % 7.8 Eosinophils % 1.4 Basophils % 0.4 Nucleated RBC % 0.0 Absolute Neutrophils 8.38 H Absolute Lymphocytes 1.46 Absolute Monocytes 0.85 H Absolute Eosinophils 0.15 Absolute Basophils 0.04 RBC Morphology See Below Anisocytosis 1+ Microcytosis 2+ Magnesium 2.0 Time Spent with Patient Time Spent with Patient: >50 minutes Time was spent: preparing to see the patient(eg.review tests), obtaining and/or reviewing separately otained hiistory, ordering medications,tests, procedures, referring, communicating with other health career guidance counselor, indepentently interpreting results, counseling the patient and care coordination
[2024-08-19 20:31] LABS: *AMPHETAMINES SCREEN URINE Negative (Negative); *BARBITURATES SCREEN URINE Negative (Negative); *BENZODIAZEPINES SCREEN URINE Negative (Negative); Cannabinoids THC Positive (Negative); Cocaine Screen,Urine Negative (Negative); METHADONE URINE SCREEN Negative (Negative); OPIATES URINE SCREEN Positive (Negative); Tricyclic Antidepressants Negative (Negative)
[2024-08-19] MEDS: Docusate Sodium 100 MG CAP PO (20:36)
[2024-08-19] MEDS: fentaNYL 100 MCG PATCH TD (20:45)
[2024-08-20] MEDS: HYDROmorphone 2 MG/ML SYR IVP ×4 (00:35→13:45)
[2024-08-20] MEDS: Melatonin 3 MG TAB 6 MG PO (00:37)
[2024-08-20] MEDS: fentaNYL 100 MCG/2 ML VIAL 25 MCG IVP ×3 (02:08→12:59)
[2024-08-20] MEDS: Acetaminophen 325 MG TAB PO ×3 (02:08→11:43)
[2024-08-20] MEDS: Normal Saline Flush 10 ML SYR IVP ×5 (05:38→13:46)
[2024-08-20 06:56] LABS: Abs Immature Grans 0.05 10^3/uL (0.0-0.06); Absolute Eosinophil Count 0.01 10^3/uL (0.0-0.7); Absolute Lymphocyte Count 0.69 10^3/uL (1.2-3.4); Basophils % 0.1 %; Eosinophils % 0.1 %; HGB 8.2 g/dL (11.2-15.7); Immature Grans % 0.4 %; MCH 20.4 pg (27.0-33.0); MCHC 30.4 % (32.0-36.0); MCV 67 fL (80-95); MPV 8.7 fL (8.0-11.0); Monocytes % 2.8 %; Neutrophils % 91.6 %; Platelet Count 607 10^3/uL (130-400); RBC 4.01 10^6/uL (3.93-5.22); RDW 20.2 % (11.7-14.6); RDW-SD 49.1 fL; WBC 13.72 10^3/uL (4.4-10.8)
[2024-08-20 07:10] LABS: Anion Gap 9.8 mmol/L (3-11); BUN 16 mg/dL (7-18); CO2 23.2 mmol/L (21.0-32.0); CREATININE 0.7 mg/dL (0.55-1.02); Calcium 8.8 mg/dL (8.5-10.1); Chloride 101 mmol/L (98-107); Estimated GFR 87.37 (mL/min/1.73m2); Glucose 112 mg/dL (74-106); Sodium 134 mmol/L (136-145)
[2024-08-20 07:20] LABS: Absolute Basophil Count 0.01 10^3/uL (0.0-0.2); Absolute Monocyte Count 0.38 10^3/uL (0.1-0.8); Absolute Neutrophil Count 12.57 10^3/uL (1.2-6.7)
[2024-08-20 07:32] LABS: Anisocytosis 1+; Hypochromasia 1+; Ovalocytes 2+
[2024-08-20] MEDS: Pantoprazole 40 MG TABCR PO (08:03)
[2024-08-20 08:37] VITALS: BP 175/88; PULSE 110; RESP 16; TEMP 36.5; O2SAT 97
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
--- NOTE | 2024-08-20 10:04 | W.PALPGNOTE ---
Date of service: 08/20/24 Time of Service: 10:05 Assessment and Plan Assessment and plan (1) Chronic abdominal pain: Status: Chronic Assessment and plan: Den was started on fentanyl patch and the dose was titrated to 100 mcg/hr. She reports that her pain is under better control. She has been getting IV hydromorphone. She will need to transition to PO hydromorphone to go home. Discussed with her usual Palliative care provider who feels she should be given a short supply with f/u by Palliative office (by phone) next week. She has a propensity to misuse medications, Palliative has given her short scripts in the past, this will likely be the best plan for her going forward. (2) Housing problems: Status: Acute Assessment and plan: Danis also w/significant health issues; connected w/[facility] Den eager to go home. She did not qualify for SNF. (3) Severely underweight adult: Status: Acute Assessment and plan: last recorded weight 78lbs continues to eat as tolerated, states her appetite is poor. (4) Psychological trauma history: Status: Acute (5) Fatigue: Status: Acute (6) GERD (gastroesophageal reflux disease): Status: Chronic Assessment and plan: started on PPI this admission (7) Impaired instrumental activities of daily living: Status: Acute Assessment and plan: requires assistance (8) Legal blindness: Status: Acute Assessment and plan: limits ability to perform IADLs, including medication administration (9) Constipation: Assessment and plan: previously controlled w/miralax and senna. previous imaging w/significant fecal impaction; need consistent bowel regimen. She refuses miralax, states she will take senna at home. (10) Chronic, continuous use of opioids: Assessment and plan: See above. (11) Nausea and vomiting: Status: Inactive Assessment and plan: Declines nausea/vomiting today. (12) Discharge planning issues: Status: Acute (13) ACP (advance care planning): Status: Acute Assessment and plan: She declines any further work-up for the rectal wall thickening. Consider adding CEA to current labs. She is interested in [facility] but has not had qualifying diagnosis to date. Rectal wall thickening suspicious for mass/cancer. (14) Palliative care patient: Status: Acute Assessment and plan: PC will continue to follow Den. Palliative nurse to call her on Friday. She has palliative scheduled for 09/14 HV. Subjective Subjective Interval history since last seen: Den was seen for Palliative f/u. She is normally followed by Martha Buchanan NP. Martha saw her earlier on this admission. Den was admitted for pain control. She had imaging in 06/2024 which showed significant rectal wall thickening, suspicious for rectal mass, however, she has declined further work-up of this. Reviewed today, she very adamantly refuses to have a biopsy or any further testing on this mass. On this admission, she was started on fentanyl patch and the dose was titrated to 100 mcg/hr. She reports that her pain is under better control. She has been getting IV hydromorphone. She will need to transition to PO hydromorphone to go home. Discussed with her usual Palliative care provider who feels she should be given a short supply with f/u by Palliative office (by phone) next week. She has a propensity to misuse medications, Palliative has given her short scripts in the past, this will likely be the best plan for her going forward. She reports that she is not eating well and will not be eating well when she goes home. She denies N/V. She has had constipation, with this noted on imaging as well. She has had bowel movements here. She reports that someone came in the room and told her she was getting an enema. She was tearful and states that her mother used to punish them with enemas when she was a kid. She does not want an enema. She would agree to a suppository. This was reviewed with the team and she will not be getting an enema. Reviewed plan for constipation at home. She declines miralax, she states, it's nasty. She states she has senna and will take it at home. Exam Narrative Exam Narrative: General: 78 y/o F, thin cachectic appearing, frail/chronically ill appearing HEENT: hearing grossly WNL, MMM, normocephalic, atraumatic; poor vision Resp: even and unlabored, speaks full sentences w/o SOB, no cough or audible wheeze Psych: pleasant, cooperative, speech clear; insight/judgement limited Objective Last Vital Signs Temp 36.5 C 08/20/24 08:37 Pulse 110 H 08/20/24 08:37 Resp 16 08/20/24 08:37 BP 175/88 H 08/20/24 08:37 Pulse Ox 97 08/20/24 08:37 Laboratory Results - last 24 hr 08/19/24 08/20/24 19:15 06:16 WBC 13.72 H RBC 4.01 Hgb 8.2 L Hct 27.0 L MCV 67 L MCH 20.4 L MCHC 30.4 L RDW 20.2 H Plt Count 607 H MPV 8.7 Immature Gran % 0.4 Neutrophils % 91.6 Lymphocytes % 5.0 Monocytes % 2.8 Eosinophils % 0.1 Basophils % 0.1 Nucleated RBC % 0.0 Absolute Neutrophils 12.57 H Absolute Lymphocytes 0.69 L Absolute Monocytes 0.38 Absolute Eosinophils 0.01 Absolute Basophils 0.01 RBC Morphology See Below Hypochromasia 1+ Anisocytosis 1+ Ovalocytes 2+ Sodium 134 L Potassium 4.0 Chloride 101 Carbon Dioxide 23.2 Anion Gap 9.8 BUN 16 Creatinine 0.7 Est GFR (CKD-EPI 2020) 87.37 Glucose 112 H Calcium 8.8 Urine Opiates Screen Positive A Urine Methadone Screen Negative Ur Barbiturates Screen Negative Ur Tricyclics Screen Negative Ur Amphetamines Screen Negative U Benzodiazepines Scrn Negative Urine Cocaine Screen Negative Ur THC Screen Positive A
--- NOTE | 2024-08-20 10:45 | CMDISCH_ITS ---
Date of service: 08/20/24 Time of Service: 10:46 LACE Index Scoring Tool Questions: Length of Stay (in days): 3 Was the patient admitted via the E.D.?: Yes Comorbidities: Any Tumor (reported rectal mass ) E.D. Visits: 4 Answers: Total Score: 12 Risk of Readmission: High Risk Care Management Discharge Plan Reason for Hospitalization: Chronic intractable abdominal pain Discharge Plan: Den will be discharged today, with a weeks supply of pain management medication. She will follow up with palliative in a week to obtain a further supply. Den will have HH RN/KENNEL KEEPER, PT is not indicated. It is recommended that she will follow up with her PCP, and discharge plan of care. CM sent referrals to [facility] at time of last admission and again to [facility] for assistance with long term acute care registered nurse Medicaid applications. Den will transport via [facility] by private car, and will be met with a lift assist by the fire department, as coordinated by CM. Patient/Family Education Needs: Review of discharge instructions, activity, limitations, and plan of care. Discuss Ask Me Three.
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
[2024-08-20 22:12] LABS: CEA 5.1 ng/mL (See Note)
== END 2024-08-20 13:55 | disposition home health service (06) | DRG 394 ==
LOC: ER 08-17 04:43 → MS 08-17 07:24
PROVIDERS: Nurse Practitioner; Admitting Provider Family Medicine; Emergency Provider Emergency Medicine; PCP Nurse Practitioner; Responsible Provider Nurse Practitioner Acute Care; Visit Provider Family Medicine
DX: R10.9 Unspecified abdominal pain (principal); G89.29 Other chronic pain; R11.2 Nausea with vomiting, unspecified; K21.9 Gastro-esophageal reflux disease without esophagitis; F43.10 Post-traumatic stress disorder, unspecified; Z68.1 Body mass index [BMI] 19.9 or less, adult; R53.83 Other fatigue; H54.8 Legal blindness, as defined in USA; K59.03 Drug induced constipation; K62.89 Other specified diseases of anus and rectum; E46 Unspecified protein-calorie malnutrition; F11.20 Opioid dependence, uncomplicated; G40.109 Localization-related (focal) (partial) symptomatic epilepsy and epileptic syndromes with simple partial seizures, not intractable, without status epilepticus; I50.20 Unspecified systolic (congestive) heart failure; I25.2 Old myocardial infarction; I73.9 Peripheral vascular disease, unspecified; J44.9 Chronic obstructive pulmonary disease, unspecified; E55.9 Vitamin D deficiency, unspecified; Z87.891 Personal history of nicotine dependence; F12.90 Cannabis use, unspecified, uncomplicated; Z66 Do not resuscitate; I11.0 Hypertensive heart disease with heart failure
CPT/HCPCS: 00123; 36415; 80048; 80053; 80307; 94640; 96372; 96374; 96375; 96376; 97166; 97535; 99222; 99285; 82378; 83735; 85025; 94664; 99233; 99239; J0780; J1171; J2405; J3010

== ENCOUNTER 2024-08-24 13:20 | Inpatient (IN) | payer MEDICARE, MEDICAID, SELFPAY ==
[2024-08-24 13:24] VITALS: BP 184/75; PULSE 103; RESP 18; TEMP 36.8; O2SAT 97
--- NOTE | 2024-08-24 13:38 | W.ED.GENAD ---
Discharge Plan Disposition Patient Disposition: Admit to [facility] Discharge Details Clinical Impression: Peritonitis, Comfort measures only status Admit Date/Time: 08/24/24 15:52 Admit Provider: Chapincito Hernandez Attending Provider: Chapincito Hernandez Primary Care Provider: Carla Park ED Provider: Marcial Pozo Discharge Data Discharge Date/Time-TO BE ENTERED AT DEPARTURE: 08/24/24 16:46 HPI General Date/Time Provider Initiated Documentation: 08/24/24 13:38. HPI Narrative: MDM This is an uncomfortable appearing tachycardic 78-year-old female with clinical diagnosis of peritonitis for which patient declines any and all treatment. Given pain will pursue hospitalization. Will engage palliative care. Will provide fluids to maintain IV access. Will push morphine as needed for pain. Broad differential of rectal sigmoid thickening. Patient declines rectal exam. We discussed CAT scan to diagnose and treat but she also declines. She has decision-making capacity so we will defer labs and imaging at this point in time. Differential is broad with ovarian torsion appendicitis diverticulitis. 3:45 PM I was in touch with Dr. Hernandez and Stephania Zaman from the hospitalist team who graciously agreed to accept patient for hospitalization. She received 2 pushes of morphine, initially 2 mg and subsequently 4 mg. 08/25 Late charting due to patient care. I spoke with Dr. Alexia Valdes from palliative care to make her aware of the patient's hospitalization. On multiple occasions I met and reassessed the patient. She continued to decline all treatments and all interventions. I discussed that her peritonitis would only be managed with IV antibiotics. She declined IV antibiotics. I explained that there was a good chance that she could without IV antibiotics. She understood this. She had engaged with palliative care in the past. I told her that I was planning on obtaining labs antibiotics and treating for sepsis. She declined. She understood these risks. Given her prior engagement with palliative care I did not feel that patient and I required witnesses during these conversations as she had previously made her wishes clear. Patient had decision making capacity in the emergency department and elected to decline all interventions beyond analgesia. I ordered some IV fluids to ensure that she maintained a patent line. HPI This is an 78-year-old female presenting with groin pain. She has been experiencing persistent groin pain for several weeks, which she describes as unbearable. The pain is located in her groin and has remained constant in its location and intensity. Despite the use of a fentanyl patch and an analgesic suppository, she finds no relief from the pain. She was hospitalized last week and the week before. She expresses a desire to return to the hospital as she feels unable to care for herself at home. She has undergone a CT scan but is reluctant to undergo further expensive tests or surgical procedures. Exam General: Uncomfortable-appearing in moderate distress speaking in complete sentences. Head: Normocephalic, atraumatic. Eye: Extraocular eye movements intact. No conjunctival injection. No scleral icterus. Ear, nose, mouth, throat: Grossly normal inspection. Normal voice, handling secretions normally. Neck: Trachea midline. Cardiovascular: Well-perfused distal extremities. Respiratory: Nonlabored respiration. Gastrointestinal: Distended peritonitic abdomen with voluntary and involutary guarding. Musculoskeletal: No edema. Moving all 4 extremities spontaneously. Skin: Normal for age and race, grossly normal temperature and turgor. No acute rash. Neurologic: Alert and appropriate, no apparent acute deficits. Psychiatric: Mood and manner are appropriate. Grooming and personal hygiene are appropriate. Related Data Home Medications ?Medication ?Instructions ?Recorded ?Confirmed albuterol sulfate 90 mcg/actuation 1 - 2 inh inhalation Q4H PRN 10/22/23 08/24/24 aerosol inhaler shortness of breath or wheezing #8.5 grams food supplemt, lactose-reduced 237 ml PO QD-BID #5,688 mL 07/28/24 08/24/24 0.04 gram-1 kcal/mL oral liquid polyethylene glycol 3350 17 gram 8.6 g PO DAILY PRN PRN 07/28/24 08/24/24 oral powder packet Constipation #14 ea sennosides 8.6 mg tablet (senna) 8.6 mg PO BID PRN constipation #30 07/28/24 08/24/24 tabs bisacodyl 5 mg tablet,delayed 5 mg PO 0600 #30 tabs 08/20/24 08/24/24 release docusate sodium 100 mg capsule 100 mg PO TID #90 caps 08/20/24 08/24/24 (Colace) fentanyl 100 mcg/hr transdermal 100 mcg transdermal Q72H #3 ea 06/27/25 07/01/25 patch glycerin (adult) (Fleet Glycerin 1 supp MN DAILY #25 ea 08/20/24 08/24/24 (Adult) rectal suppository) hydromorphone 4 mg tablet 4 mg PO Q6H PRN #20 tabs 08/20/24 08/24/24 ondansetron 4 mg disintegrating 4 mg PO Q8H PRN #30 tabs 08/20/24 08/24/24 tablet pantoprazole 40 mg tablet,delayed 40 mg PO DAILY@0730 #30 tabs 08/20/24 08/24/24 release polyethylene glycol 3350 17 gram 17 g PO BID #30 ea 08/20/24 08/24/24 oral powder packet Previous Rx's ?Medication ?Instructions ?Recorded albuterol sulfate 90 mcg/actuation 1 - 2 inh inhalation Q4H PRN 10/22/23 aerosol inhaler shortness of breath or wheezing #8.5 grams food supplemt, lactose-reduced 237 ml PO QD-BID #5,688 mL 07/28/24 0.04 gram-1 kcal/mL oral liquid polyethylene glycol 3350 17 gram 8.6 g PO DAILY PRN PRN 07/28/24 oral powder packet Constipation #14 ea sennosides 8.6 mg tablet (senna) 8.6 mg PO BID PRN constipation #30 07/28/24 tabs bisacodyl 5 mg tablet,delayed 5 mg PO 0600 #30 tabs 08/20/24 release docusate sodium 100 mg capsule 100 mg PO TID #90 caps 08/20/24 (Colace) fentanyl 100 mcg/hr transdermal 100 mcg transdermal Q72H #3 ea 08/20/24 patch glycerin (adult) (Fleet Glycerin 1 supp MN DAILY #25 ea 08/20/24 (Adult) rectal suppository) hydromorphone 4 mg tablet 4 mg PO Q6H PRN #20 tabs 08/20/24 ondansetron 4 mg disintegrating 4 mg PO Q8H PRN #30 tabs 08/20/24 tablet pantoprazole 40 mg tablet,delayed 40 mg PO DAILY@0730 #30 tabs 08/20/24 release polyethylene glycol 3350 17 gram 17 g PO BID #30 ea 08/20/24 oral powder packet Allergies Allergy/AdvReac Type Severity Reaction Status Date / Time Sulfa (Sulfonamide Allergy Severe Anaphylaxsi Verified 08/24/24 13:32 Antibiotics) s meperidine HCl (From Demerol) Allergy Intermediate Contraindicated, Verified 08/24/24 13:32 seizures phenytoin sodium (From Allergy Intermediate Contraindicated, Verified 08/24/24 13:32 Dilantin) seizures phenytoin sodium extended Allergy Intermediate Contraindicated, Verified 08/24/24 13:32 (From Dilantin) seizures amoxicillin Allergy Unknown unknown Verified 08/24/24 13:32 diazepam (From Valium) Allergy Unknown unknown Verified 08/24/24 13:32 morphine Allergy Other (See Verified 08/24/24 13:32 Comment) midazolam HCl (From Versed) AdvReac Intermediate Psychosis Verified 08/24/24 13:32 oxycodone AdvReac Intermediate weird and Uncoded 08/24/24 13:32 anxious feeling General Stated Complaint: GenMedical CRISTO: 3 Course Vital Signs Vital signs: Vital Signs Temperature 36.8 C 08/24/24 13:24 Pulse 103 H 08/24/24 13:24 Respiratory Rate 18 08/24/24 13:24 Blood Pressure 184/75 H 08/24/24 13:24 Pulse Oximetry 97 08/24/24 13:24 Temperature 36.8 C 08/24/24 13:24 Temperature Source Oral 08/24/24 13:24 Pulse 103 H 08/24/24 13:24 Respiratory Rate 18 08/24/24 13:24 Blood Pressure 184/75 H 08/24/24 13:24 Pulse Oximetry 97 08/24/24 13:24 Oxygen Delivery Method Room Air 08/24/24 13:24 Oxygen Flow Rate 0 08/24/24 13:24 Pain Level 9 08/24/24 13:24 PFSH All Active Problems (Updated 08/24/24 @ 15:50 by Marcial Pozo MD) Peritonitis (Acute) Legal blindness (Acute) Chronic abdominal pain (Chronic) Chronic abdominal pain (Chronic) Severely underweight adult (Acute) Comfort measures only status (Acute) Hospice care patient (Acute) Opioid dependence with current use (Chronic) Protein calorie malnutrition (Acute) Encounter for hospice care discussion (Acute) GERD (gastroesophageal reflux disease) (Chronic) Unintentional weight loss (Acute) Dyspnea on exertion (Acute) History of sleep study (Acute) Sleep pattern disturbance (Acute) Palliative care patient (Acute) Vascular occlusion (Acute) Dyshidrosis (Acute) Chronic pain (Chronic) Depression (Chronic) Current smoker (Acute) Narcotic withdrawal (Acute) Anemia (Chronic) Medical History Constipation Palliative care encounter Constipation NSTEMI (non-ST elevated myocardial infarction) Peripheral arterial disease Physician orders for life-sustaining treatment (POLST) form indicates patient wish for [id number] status ACP (advance care planning) Hematemesis Hypertension COPD (chronic obstructive pulmonary disease) Respiratory failure with hypoxia Temporal lobe epilepsy Vitamin D deficiency Late effect of pelvic fracture Cachexia PTSD (post-traumatic stress disorder) GI bleed Helicobacter pylori gastritis Movement disorder Loss of vision Abdominal pain Chronic, continuous use of opioids Hx of drug withdrawal syndrome Seizures Social History Smoking/Tobacco Use Status: Former Tobacco Use Quit status: has quit before Second Hand Exposure: Yes Smoking risk assessment performed?: Yes Alcohol Intake: never Drug use: Daily Substance use type: marijuana Adopted: No Caregiver/Support person: Yes Foster care: No Household members: spouse Housing: house Number of Children: 1 number of grandchildren: 0 Communication Needs: Blind Education Level: middle school Do you need help understanding health information?: Often 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
[2024-08-24 13:41] VITALS: BP 184/75; PULSE 103; RESP 18; TEMP 36.8; O2SAT 97
[2024-08-24] MEDS: MORPHine 4 MG/ML SYR 2 MG IVP (15:22)
[2024-08-24] MEDS: Normal Saline 1,000 ML 50 ML IV (15:23)
[2024-08-24] MEDS: MORPHine 4 MG/ML SYR IVP (16:13)
[2024-08-24] MEDS: Lidocaine 2% Jelly 11 ML SYR (16:30)
[2024-08-24 16:50] VITALS: RESP 22
[2024-08-24 16:54] VITALS: BP 180/75; PULSE 99; RESP 20; TEMP 36.7; O2SAT 99
[2024-08-24 16:58] VITALS: BP 173/85; PULSE 103; RESP 17; TEMP 36.3; O2SAT 99
[2024-08-24] MEDS: LORazepam 20 MG/10 ML VIAL IVP ×3 (17:56→22:46)
[2024-08-24 18:09] VITALS: BP 173/85; PULSE 103; RESP 17; TEMP 36.3; O2SAT 99
--- NOTE | 2024-08-24 18:09 | W.PC.ACHO ---
Registration Status: ADM IN Primary Language: Preferred Language: Indonesian ED Information & Data Chief Complaint GenMedical 08/24/24 15:18 Triage Note pt with c/o abdominal pain 08/24/24 13:24 and groin pain states she has been here all week with the same complaint Medical / Surgical History (Last Reviewed 08/18/24 @ 13:43 by Martha Buchanan NP) ACP (advance care planning) Housing problems Psychological trauma history Opiate misuse Impaired instrumental activities of daily living Constipation Palliative care encounter Constipation NSTEMI (non-ST elevated myocardial infarction) Peripheral arterial disease Physician orders for life-sustaining treatment (POLST) form indicates patient wish for [id number]-web-wiacmuryzac status ACP (advance care planning) Hematemesis Hypertension COPD (chronic obstructive pulmonary disease) Respiratory failure with hypoxia Temporal lobe epilepsy Vitamin D deficiency Late effect of pelvic fracture Cachexia PTSD (post-traumatic stress disorder) GI bleed Helicobacter pylori gastritis Movement disorder Loss of vision Abdominal pain Chronic, continuous use of opioids Hx of drug withdrawal syndrome Seizures Most Recent Vital Signs Temperature 36.3 C L 08/24/24 16:58 Temperature Source Temporal Artery Scan 08/24/24 16:58 Pulse 103 H 08/24/24 16:58 Respiratory Rate 17 08/24/24 16:58 Respiratory Effort Normal, Non-Labored 08/24/24 16:50 Respiratory Depth Normal 08/24/24 16:50 Respiratory Pattern Normal 08/24/24 16:50 Blood Pressure 173/85 H 08/24/24 16:58 Blood Pressure Mean 114 08/24/24 16:58 Pulse Oximetry 99 08/24/24 16:58 Oxygen Delivery Method Room Air 08/24/24 16:58 Oxygen Flow Rate 0 08/24/24 16:58 Pain Level 10 08/24/24 17:27 Allergies Sulfa (Sulfonamide Antibiotics) Allergy (Severe, Verified 08/24/24 13:32) Anaphylaxsis meperidine HCl (From Demerol) Allergy (Intermediate, Verified 08/24/24 13:32) Contraindicated, seizures seizures phenytoin sodium (From Dilantin) Allergy (Intermediate, Verified 08/24/24 13:32) Contraindicated, seizures seizures phenytoin sodium extended (From Dilantin) Allergy (Intermediate, Verified 08/24/24 13:32) Contraindicated, seizures seizures amoxicillin Allergy (Unknown, Verified 08/24/24 13:32) unknown diazepam (From Valium) Allergy (Unknown, Verified 08/24/24 13:32) unknown morphine Allergy (Verified 08/24/24 13:32) Other (See Comment) stops breathing midazolam HCl (From Versed) Adverse Reaction (Intermediate, Verified 08/24/24 13:32) Psychosis oxycodone Adverse Reaction (Intermediate, Uncoded 08/24/24 13:32) weird and anxious feeling Active Medications Generic Name Dose Route Start Last Admin Trade Name Freq PRN Reason Stop Dose Admin Sodium Chloride 1,000 mls @ 50 mls/hr 08/24/24 14:15 08/24/24 15:23 Saline 1000ml Bag IV 08/24/24 22:14 50 mls/hr INFUSION OZIEL Administration Lorazepam 1 mg 08/24/24 17:26 08/24/24 17:56 Lorazepam 20 Mg/10 Ml Vial IVP 1 mg Q2H PRN PRN Administration IV IV Catheter Type [Right Diffusics Forearm] IV Catheter Gauge [Right 20 Forearm] Intake and Output - 24 Hour Total 08/24/24 13:05 thru 08/24/24 16:39 Output Total 200 Balance -200 Weight 34.019 kg Output: Urine 200 Other: Urine Color Yellow Urinary Catheter Urinary Catheter Date of 08/24/24 Insertion [Urethral (Valencia)] Time of insertion [Urethral ( 16:39 [place])] Falls Risk Assessment History of Falls No History 08/24/24 16:50 Contributing Factors Impairments 08/24/24 16:50 Ambulatory Aids Uses ambulatory device 08/24/24 16:50 Tubes/Lines None 08/24/24 16:50 Gait Evaluation W/any additional score 08/24/24 16:50 Cognition Cognitive impairment 08/24/24 16:50 Fall Total Score 53 08/24/24 16:50 Level of Risk High Risk 08/24/24 16:50 Problems (Last Reviewed 08/18/24 @ 13:43 by Martha Buchanan NP) Peritonitis (Acute) Comfort measures only status (Acute) v v v v v v v v v Sending and/or Receiving Nurses: Please use comment section below to note any information pertinent to the patient hand-off not included above. Information / Comments: This nurse brought pt up from ED on stretcher to [facility] [id number] Report received from: NEGRITO Crump
[2024-08-24] MEDS: Normal Saline Flush 10 ML SYR (18:31)
--- NOTE | 2024-08-24 18:35 | HPE_ITS ---
Date of service: 08/24/24 Time of Service: 17:30 Assessment and Plan Assessment and plan (1) Comfort measures only status: Status: Acute Assessment and plan: 78-year-old female with advanced chronic illnesses including heart failure with mildly reduced EF, peripheral arterial disease, chronic pain syndrome, COPD, depression, and known rectal mass suspicious for malignancy. The patient has intractable pain despite high-dose opioids (fentanyl patch 100 mcg/hr, oral oxycodone, hydromorphone, and morphine) and has expressed clear wishes for comfort-directed care only. She is admitted for symptom management and end-of-life care. DNR/DNI No further diagnostic testing or invasive interventions unless symptom relief indicated. Focus on quality of life and patient-centered goals. Hydromorphone drip Assess and support caregiver needs and discharge planning if not continuing to decline (potential care home placement; she has declined in the past). Support oral intake as tolerated; no artificial nutrition or hydration. Comfort care orders -including pain medication dyspnea, anxiety, nausea, secretions, constipation, agitation. Valencia catheter. Vital signs per nursing discretion. Oxygen as needed for dyspnea. (2) Peritonitis: Status: Acute Assessment and plan: Abdomen: Distended and tender to palpation, diffusely. Voluntary guarding noted, with rebound tenderness present. Bowel sounds are hypoactive. Facial grimacing and guarding with even light palpation. Tachycardia, elevated blood pressure, afebrile (3) Legal blindness: Status: Acute Assessment and plan: Patient has a history of severe visual impairment consistent with legal blindness Functional limitations noted: requires assistance with mobility, medication management, and ADLs. Vision loss is stable; no acute ophthalmologic complaints. (4) Chronic abdominal pain: Status: Chronic Assessment and plan: Continue titration of opioid therapy (IV hydromorphone) for adequate pain control. Remove fentanyl patch. Optimize adjunctive therapies as needed (antiemetics, laxatives, anxiolytics). Frequent pain assessments to adjust medications promptly. (5) Severely underweight adult: Status: Acute (6) Opioid dependence with current use: Status: Chronic Assessment and plan: Continue titration of opioid therapy (IV hydromorphone) for adequate pain control. Remove fentanyl patch. Optimize adjunctive therapies as needed (antiemetics, laxatives, anxiolytics). Frequent pain assessments to adjust medications promptly. (7) GERD (gastroesophageal reflux disease): Status: Chronic Assessment and plan: Pantoprazole IV (8) Palliative care patient: Status: Acute Assessment and plan: Involve palliative care team for ongoing symptom management and psychosocial support. - Consulted Discussed with Dr Aguillon regarding current plan of care; she is in agreement with plan and will see patient on . History of Present Illness History of Present Illness Chief Complaint: Intractable pain Narrative: This is an 78-year-old female with a complex medical history including heart failure with mildly reduced ejection fraction, peripheral arterial disease, chronic pain, COPD, hypertension, depression, and recent hospice/palliative care involvement. She was admitted from the ED on 08/16/24 for worsening left-sided abdominal pain and inability to tolerate her home oral pain medications due to nausea and vomiting. She declined further diagnostic testing and interventions, expressing a clear preference for comfort-directed care only. She has been on extensive opioid therapy at home including a 100 mcg fentanyl patch, oral oxycodone, oral hydromorphone, and morphine concentrate but continues to suffer from intractable pain. This refractory pain prompted hospitalization for more intensive pain management and symptom control. During her prior hospitalization from 08/17/24 to 08/20/24, she improved somewhat but continued to struggle with pain control and oral intake. She declined PT/OT services and a SNF placement initially planned, opting to go home with home health and social work support, although she acknowledges her caregiving needs may exceed her ?s ability to care for her. She also reports emotional distress related to bowel management, refusing enemas but accepting suppositories. Patient returns to the ED today wtih complaints of intractable pain. Patient is admitted today under comfort measures only status due to uncontrolled pain and her expressed wishes for no further curative treatment. She is aware of her prognosis and is currently not open to care home placement, The goal for admissin is to continue to focus on symptom management, psychosocial support, and honoring her goals of care. Patient is a palliative care established patient. Patient is DNR DNI Review of Systems Narrative: * General: Reports fatigue, weakness, poor appetite, and weight loss. Denies fever or chills. * Gastrointestinal: Left-sided abdominal pain persistent; nausea and occasional vomiting. No diarrhea or constipation reported currently. * Pain: Severe, uncontrolled despite high-dose opioids. * Psychiatric: Expresses feelings of being ?done? and ready for end-of-life. No acute suicidal ideation noted currently. * Respiratory: No shortness of breath or cough. * Cardiovascular: No chest pain or palpitations. PFSH All Active Problems (Updated 08/24/24 @ 15:50 by Marcial Pozo MD) Peritonitis (Acute) Legal blindness (Acute) Chronic abdominal pain (Chronic) Chronic abdominal pain (Chronic) Severely underweight adult (Acute) Comfort measures only status (Acute) Hospice care patient (Acute) Opioid dependence with current use (Chronic) Protein calorie malnutrition (Acute) Encounter for hospice care discussion (Acute) GERD (gastroesophageal reflux disease) (Chronic) Unintentional weight loss (Acute) Dyspnea on exertion (Acute) History of sleep study (Acute) Sleep pattern disturbance (Acute) Palliative care patient (Acute) Vascular occlusion (Acute) Dyshidrosis (Acute) Chronic pain (Chronic) Depression (Chronic) Current smoker (Acute) Narcotic withdrawal (Acute) Anemia (Chronic) Medical History Constipation Palliative care encounter Constipation NSTEMI (non-ST elevated myocardial infarction) Peripheral arterial disease Physician orders for life-sustaining treatment (POLST) form indicates patient wish for [id number] status ACP (advance care planning) Hematemesis Hypertension COPD (chronic obstructive pulmonary disease) Respiratory failure with hypoxia Temporal lobe epilepsy Vitamin D deficiency Late effect of pelvic fracture Cachexia PTSD (post-traumatic stress disorder) GI bleed Helicobacter pylori gastritis Movement disorder Loss of vision Abdominal pain Chronic, continuous use of opioids Hx of drug withdrawal syndrome Seizures Social History Smoking/Tobacco Use Status: Former Tobacco Use Quit status: has quit before Second Hand Exposure: Yes Smoking risk assessment performed?: Yes Alcohol Intake: never Drug use: Daily Substance use type: marijuana Adopted: No Caregiver/Support person: Yes Foster care: No Household members: spouse Housing: house Number of Children: 1 number of grandchildren: 0 Communication Needs: Blind Education Level: middle school Do you need help understanding health information?: Often 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 Meds Allergies and Home Medications Allergies Allergy/AdvReac Type Severity Reaction Status Date / Time Sulfa (Sulfonamide Allergy Severe Anaphylaxsi Verified 08/24/24 13:32 Antibiotics) s meperidine HCl (From Demerol) Allergy Intermediate Contraindicated, Verified 08/24/24 13:32 seizures phenytoin sodium (From Allergy Intermediate Contraindicated, Verified 08/24/24 13:32 Dilantin) seizures phenytoin sodium extended Allergy Intermediate Contraindicated, Verified 08/24/24 13:32 (From Dilantin) seizures amoxicillin Allergy Unknown unknown Verified 08/24/24 13:32 diazepam (From Valium) Allergy Unknown unknown Verified 08/24/24 13:32 morphine Allergy Other (See Verified 08/24/24 13:32 Comment) midazolam HCl (From Versed) AdvReac Intermediate Psychosis Verified 08/24/24 13:32 oxycodone AdvReac Intermediate weird and Uncoded 08/24/24 13:32 anxious feeling Home Medications ?Medication ?Instructions ?Recorded ?Confirmed ?Type albuterol sulfate 90 mcg/actuation 1 - 2 inh inhalatio n Q4H PRN 10/22/23 08/24/24 Rx aerosol inhaler shortness of breath or wheez ing #8.5 grams food supplemt, lactose-reduced 237 ml PO QD-BID #5,688 mL 07/28/24 08/24/24 Rx 0.04 gram-1 kcal/mL oral liquid polyethylene glycol 3350 17 gram 8.6 g PO DAILY PRN GA N 07/28/24 08/24/24 Rx oral powder packet Constipation #14 ea sennosides 8.6 mg tablet (senna) 8.6 mg PO BID PRN con stipation #30 07/28/24 08/24/24 Rx tabs bisacodyl 5 mg tablet,delayed 5 mg PO 0600 #30 tabs 08/24/24 Rx release docusate sodium 100 mg capsule 100 mg PO TID #90 caps 08/20/24 08/24/24 Rx (Colace) fentanyl 100 mcg/hr transdermal 100 mcg transdermal Q7 2H #3 ea 08/20/24 08/24/24 Rx patch glycerin (adult) (Fleet Glycerin 1 supp GA DAILY #25 e a 08/20/24 08/24/24 Rx (Adult) rectal suppository) hydromorphone 4 mg tablet 4 mg PO Q6H PRN #20 tabs 08/24/24 Rx ondansetron 4 mg disintegrating 4 mg PO Q8H PRN #30 ta bs 08/20/24 08/24/24 Rx tablet pantoprazole 40 mg tablet,delayed 40 mg PO DAILY@0730 #30 tabs 08/20/24 08/24/24 Rx release polyethylene glycol 3350 17 gram 17 g PO BID #30 ea 08/24/24 Rx oral powder packet Exam Narrative Exam Narrative: * General: Appears frail, thin, in mild distress due to pain; alert and oriented ?3. * Vital Signs: Stable * HEENT: Normocephalic, atraumatic; mucous membranes dry but intact; no oral lesions. * Cardiovascular: Regular rate and rhythm; no murmurs, gallops, or rubs; peripheral pulses diminished consistent with PAD. * Respiratory: Clear to auscultation bilaterally; no wheezes, rales, or rhonchi. * Abdomen: Soft, mildly tender to palpation; no rebound or guarding; bowel sounds present. * Neurologic: Alert; no new focal deficits; cranial nerves II-XII grossly intact; motor strength limited by frailty but symmetrical; no new sensory deficits. * Skin: Thin, fragile; no new rashes or open wounds; old surgical scars present; no edema. * Extremities: Cool to touch, diminished pulses, no cyanosis or clubbing; muscle wasting noted. Results Last Vital Signs Temp 36.3 C L 08/24/24 18:09 Pulse 103 H 08/24/24 18:09 Resp 17 08/24/24 18:09 BP 173/85 H 08/24/24 18:09 Pulse Ox 99 08/24/24 18:09 Time Spent Time spent with Patient: 55-74 minutes Time was spent: preparing to see the patient(eg.review tests), obtaining and/or reviewing separately otained hiistory, ordering medications,tests, procedures, referring, communicating with other health career orientation teacher, indepentently interpreting results, counseling the patient and care coordination
[2024-08-24] MEDS: HYDROmorphone 100 MG in Normal Saline 240 ML IV_INF (19:21)
[2024-08-24] MEDS: Scopolamine 1 MG/3 DAYS PATCH TD (20:32)
[2024-08-24] MEDS: Docusate Sodium 100 MG CAP PO (20:32)
[2024-08-24] MEDS: Pantoprazole 40 MG VIAL IVP (20:32)
[2024-08-24] MEDS: Normal Saline Flush 10 ML SYR IVP ×2 (20:33→21:29)
[2024-08-24] MEDS: Haloperidol 1 MG TAB PO (22:06)
[2024-08-25] MEDS: LORazepam 20 MG/10 ML VIAL IVP ×6 (01:13→17:44)
[2024-08-25] MEDS: Normal Saline Flush 10 ML SYR IVP ×7 (01:13→17:43)
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
[2024-08-25] MEDS: Pantoprazole 40 MG VIAL IVP (10:48)
--- NOTE | 2024-08-25 13:41 | PGE_ITS ---
Date of Service Date of service: 08/25/24 Time of Service: 13:41 Assessment and Plan Assessment and plan (1) Comfort measures only status: Status: Acute Assessment and plan: 78-year-old female with advanced chronic illnesses including heart failure with mildly reduced EF, peripheral arterial disease, chronic pain syndrome, COPD, depression, and known rectal mass suspicious for malignancy. The patient has intractable pain despite high-dose opioids (fentanyl patch 100 mcg/hr, oral oxycodone, hydromorphone, and morphine) and has expressed clear wishes for comfort-directed care only. She is admitted for symptom management and end-of-life care. DNR/DNI No further diagnostic testing or invasive interventions unless symptom relief indicated. Focus on quality of life and patient-centered goals. Hydromorphone drip Assess and support caregiver needs and discharge planning if not continuing to decline (potential assisted placement; she has declined in the past). Support oral intake as tolerated; no artificial nutrition or hydration. Comfort care orders -including pain medication dyspnea, anxiety, nausea, secretions, constipation, agitation. Valencia catheter. Vital signs per nursing discretion. Oxygen as needed for dyspnea. Continue hydromorphone drip - 4 mg an hour currently with available bolus of 1 mg q 15 min prn. Call provider when using more than 2 boluses/h - patient comfortabl and sleeping at time of writing (2) Peritonitis: Status: Acute Assessment and plan: Abdomen: Distended and tender to palpation, diffusely. Voluntary guarding noted, with rebound tenderness present. Bowel sounds are hypoactive. Facial grimacing and guarding with even light palpation. Tachycardia, elevated blood pressure, afebrile (3) Legal blindness: Status: Acute Assessment and plan: Patient has a history of severe visual impairment consistent with legal blindness Functional limitations noted: requires assistance with mobility, medication management, and ADLs. Vision loss is stable; no acute ophthalmologic complaints. (4) Chronic abdominal pain: Status: Chronic Assessment and plan: Continue titration of opioid therapy (IV hydromorphone) for adequate pain control. Optimize adjunctive therapies as needed (antiemetics, laxatives, anxiolytics). Frequent pain assessments to adjust medications promptly. (5) Severely underweight adult: Status: Acute Assessment and plan: 34 kg (6) Opioid dependence with current use: Status: Chronic Assessment and plan: Continue titration of opioid therapy (IV hydromorphone) for adequate pain control. Optimize adjunctive therapies as needed (antiemetics, laxatives, anxiolytics). Frequent pain assessments to adjust medications promptly. (7) Palliative care patient: Status: Acute Assessment and plan: Involve palliative care team for ongoing symptom management and psychosocial support. - Consulted Discussed with Dr Aguillon regarding current plan of care; she is in agreement with plan and will see patient on . Subjective Subjective Patient reports: no new complaints Exam Narrative Exam Narrative: * General: 78-year-old female, thin, cachectic, severely frail, and chronically ill appearing. Eyes closed and mouth open, tongue to the side, on arrival not arousable to voice. * HEENT: Normocephalic, atraumatic. Mucous membranes dry; lips peeling. * Respiratory: Breathing even and unlabored at rest. Scopolamine patch present behind ear. * Psychiatric/Neuro: Patient is calm, and non-agitated. Objective Last Vital Signs Temp 36.3 C L 08/24/24 18:09 Pulse 103 H 08/24/24 18:09 Resp 17 08/24/24 18:09 BP 173/85 H 08/24/24 18:09 Pulse Ox 99 08/24/24 18:09 Time Spent with Patient Time Spent with Patient: 25-34 minutes Time was spent: preparing to see the patient(eg.review tests), ordering medications,tests, procedures, referring, communicating with other health healthcare science specialist, indepentently interpreting results, counseling the patient and care coordination
--- NOTE | 2024-08-25 16:03 | INITIAL_ITS ---
Date of service: 08/25/24 Time of Service: 16:03 Care Management Initial Assmt Initial Assessment Reason for Hospitalization: Peritonitis: opioid dependence; End of life care Functional Status/Living Situation Patient Presentation: Den was lying in bed with her eyes closed, when CM arrived. She presented to the ED declining any and all treatments for pain (Chronic). Den was discharge from [facility] 08/20/24 after being being admitted for pain management. The discharging provider prescribe Den with a week supply of pain medication; Palliative was following for a pain regimen and goals of care. Per provider, she is here on CHIMNEY BUILDER HELPER for end of life. Den is currently on Hydromorphone 4mg/HR, which was increase from 2mg/HR from earlier today. She appeared to be comfortable and resting, at this time. 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 Discharge plans pending her status over next 24 hours. CM will continue to follow. Town of Residence: [place] Resides with: Spouse Significant Other/Family: Out of area Caregiver/Guardian: Per patient, Danis and Den take care of each other Natural Supports: States Danis but no others Employment Status: Retired Instrumental Activities of Daily Living (ADLs): Requires support Medications Medication Management: No Issues/Barriers identified Advance Directives Advance Directives: Do you have an Advance Directive: N , 13:48 AD On File at [facility]: N 07/20/24, 13:48 Date Asked 08/24/24 08/24/24, 14:33 AD Date Reviewed COLST On File at [facility] Yes 07/20/24, 13:48 COLST Date Scanned 04/16/23 07/20/24, 13:48 Code Status Resuscitation Status DNR/DNI Portal Pt does not currently have a portal and education provided: Yes Insurance Coverage/Financial Issues Insurance: Medicare Part A & B - [id number] Medicaid of [place] - [id number] Care Team Visit Care Team Role Provider Type Stephania Zaman NP MD [facility] STAFF PHYSICIAN Carla Park NP Primary Care Provider NURSE PRACTITIONER Marcial Pozo MD Emergency Provider [facility] STAFF PHYSICIAN Chapincito Hernandez MD Admit Provider [facility] STAFF PHYSICIAN Attending Provider Discharge Potential Discharge Needs: PCP F/U Appt Anticipated Barriers to Discharge: Medical Status Patient/Family Education Needs: Review discharge instructions, discuss Ask Me Three Plan: Prognosis is unclear at this time. Palliative following goals of care. Discharge plans pending her status over next 24 hours. CM will follow. Social Determinants of Health Screening Will the Patient Participate in the Screening?: Declined to provide PFSH All Active Problems (Updated 08/24/24 @ 15:50 by Marcial Pozo MD) Peritonitis (Acute) Legal blindness (Acute) Chronic abdominal pain (Chronic) Chronic abdominal pain (Chronic) Severely underweight adult (Acute) Comfort measures only status (Acute) Hospice care patient (Acute) Opioid dependence with current use (Chronic) Protein calorie malnutrition (Acute) Encounter for hospice care discussion (Acute) GERD (gastroesophageal reflux disease) (Chronic) Unintentional weight loss (Acute) Dyspnea on exertion (Acute) History of sleep study (Acute) Sleep pattern disturbance (Acute) Palliative care patient (Acute) Vascular occlusion (Acute) Dyshidrosis (Acute) Chronic pain (Chronic) Depression (Chronic) Current smoker (Acute) Narcotic withdrawal (Acute) Anemia (Chronic) Medical History Constipation Palliative care encounter Constipation NSTEMI (non-ST elevated myocardial infarction) Peripheral arterial disease Physician orders for life-sustaining treatment (POLST) form indicates patient wish for ul-drn-[id number] status ACP (advance care planning) Hematemesis Hypertension COPD (chronic obstructive pulmonary disease) Respiratory failure with hypoxia Temporal lobe epilepsy Vitamin D deficiency Late effect of pelvic fracture Cachexia PTSD (post-traumatic stress disorder) GI bleed Helicobacter pylori gastritis Movement disorder Loss of vision Abdominal pain Chronic, continuous use of opioids Hx of drug withdrawal syndrome Seizures Social History Smoking/Tobacco Use Status: Former Tobacco Use Quit status: has quit before Second Hand Exposure: Yes Smoking risk assessment performed?: Yes Alcohol Intake: never Drug use: Daily Substance use type: marijuana Adopted: No Caregiver/Support person: Yes Foster care: No Household members: spouse Housing: house Number of Children: 1 number of grandchildren: 0 Communication Needs: Blind Education Level: middle school Do you need help understanding health information?: Often 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 Readmission Within the Past 30 Days Yes or No: Yes Date of First Admission Date of 1st Admission: 08/17/24 Date of this Admission Date of Admission: 08/24/24 This admission was: Through ED Office Visit Since 1st Admission Have you seen your PCP in the office since discharge?: No Date of PCP Appointment: Refused Had an appointment Been Scheduled?: No Date of Scheduled Appointment: Refused Describe barriers for scheduling or getting an appointment: Refused Speicalist Appointments Have you seen any other specialist since your 1st Admission?: No Date you saw the Specialist: Refused I. Interview patient and/or Family Difficulty reaching your doctor or getting an office appt?: No Have you had trouble purchasing/ or taking medication?: No Have you had trouble with getting meals at home?: Yes Describe your typical meals since you have been home: MOW Why weren't services received?: Refused discharge?: No What were the barriers for not receiving services?: Refused Did you call your physician beore you came to the ED?: No Did your physician tell you to come in?: No How do you think you became sick enough to come back?: Needed pain management If the patient had a VNA ordered Did the patient have a VNA order?: Yes ED visits How many ED visits in the past 12 months: 8 Assessment for Readmission Summary of readmission circumstances, based upon interviews: Pain management
[2024-08-26] MEDS: LORazepam 20 MG/10 ML VIAL IVP ×4 (01:38→21:21)
[2024-08-26] MEDS: Normal Saline Flush 10 ML SYR IVP ×2 (09:02→21:20)
--- NOTE | 2024-08-26 11:22 | CMPROGNOTE_ITS ---
Date of service: 08/26/24 Time of Service: 11:32 Care Management Progress Note Progress Note Text Progress Note Text: Den was lying in bed and sleeping, when CM arrived. She remains on LOAD DISPATCHER with a drip of Hydromorphone 4mg/HR and appears comfortable. Per palliative, Den will be seen by Doctor Aguillon today. CM will continue to follow. Discharge Potential Discharge Needs: PCP F/U Appt Anticipated Barriers to Discharge: Medical Status Patient/Family Education Needs: Review discharge instructions, discuss Ask Me Three Plan: Prognosis is unclear at this time. Palliative following goals of care. Discharge plans pending her status over next 24 hours. CM will follow. Social Determinants of Health Screening Will the Patient Participate in the Screening?: Declined to provide
--- NOTE | 2024-08-26 11:49 | PGE_ITS ---
Date of Service Date of service: 08/26/24 Time of Service: 11:49 Assessment and Plan Assessment and plan (1) Comfort measures only status: Status: Acute Assessment and plan: Continue TRAINING TECHNICIAN orders as per protocol PMHx : 78-year-old female with advanced chronic illnesses including heart failure with mildly reduced EF, peripheral arterial disease, chronic pain syndrome, COPD, depression, and known rectal mass suspicious for malignancy for which she refused Dx investigation Ongoing intractable pain despite high-dose opioids (fentanyl patch 100 mcg/hr, oral oxycodone, hydromorphone, and morphine) and has expressed clear wishes for comfort-directed care only. Intervention for symptom relief only Continue to focus on quality of life and patient-centered goals. CADD Hydromorphone now at 4 mg/hr can go up to 8 mg/hr- anticipate higher dosage d/t PMHx of narcotic use -currently with available bolus of 1 mg q 15 min prn. if 2 boluses given w/i 60 minutes - increase rate by 1 mg/hr -Call provider when using more than 2 boluses/h - -Titrate up for increased pain air hunger or dyspnea Discharge planning if not continuing to decline (potential fdc placement; she has declined in the past). Support oral intake as tolerated- no supplemental enteral nutrition or IVF Continue comfort care orders -including pain medication dyspnea, anxiety, nausea, secretions, constipation, agitation. Valencia catheter. Discussion with patient regarding health proxy/ agent ( to make decisions and speak in your behalf if your were incapacitated) during visit with Dr. Valdes: Agrees that daughter Chinyere Sinclair could shoulder the role. Confirmed with daughter that Den was TRAINING TECHNICIAN and Chinyere agreed to be her mother's healtcare proxy/agent. Please see Dr. Valdes's notes. (2) Peritonitis: Status: Acute Assessment and plan: Abdomen: Diffuse tenderness to plapation, non-acute , no flatus, bowel sounds are present but guarding to light palpation, no chills And as above (3) Legal blindness: Status: Acute Assessment and plan: Hx of severe visual impairment consistent with legal blindness Continue to provide assistance with mobility, medication management, and ADLs. TRAINING TECHNICIAN (4) Chronic abdominal pain: Status: Chronic Assessment and plan: As per point 1 (5) Severely underweight adult: Status: Acute Assessment and plan: TRAINING TECHNICIAN (6) Opioid dependence with current use: Status: Chronic Assessment and plan: As per point 1 (7) Palliative care patient: Status: Acute Assessment and plan: Ongoing palliative care consultation Patient discussed with Dr Aguillon- only on 4mg/hr of hydromorphone- max dose of 8mg/hr not reached yet, Rx for increased anxiety added Dr. Valdes saw the patient today Discussed with Dr. Tang Subjective Subjective Patient reports: still having pain, tolerating liquids well, voiding w/o difficulty and nausea; denies vomiting, shortness of breath or fever Exam Narrative Exam Narrative: Alert oriented x 3 no focal deficit S1-S2 regular heart, clear lungs unlabored breathing, abdomen is nondistended soft lower quadrants tenderness, no CVA tenderness, moves all 4 extremities Objective Last Vital Signs Temp 36.3 C L 08/24/24 18:09 Pulse 103 H 08/24/24 18:09 Resp 17 08/24/24 18:09 BP 173/85 H 08/24/24 18:09 Pulse Ox 99 08/24/24 18:09 Time Spent with Patient Time Spent with Patient: >50 minutes Time was spent: preparing to see the patient(eg.review tests), obtaining and/or reviewing separately otained hiistory, ordering medications,tests, procedures, referring, communicating with other health childcare aide, indepentently interpreting results, counseling the patient and care coordination
[2024-08-26] MEDS: Pantoprazole 40 MG VIAL IVP (12:17)
[2024-08-26] MEDS: Haloperidol 5 MG/ML VIAL IM ×2 (13:11→19:53)
--- NOTE | 2024-08-26 15:12 | PCPN_ITS ---
Date of service: 08/26/24 Time of Service: 15:12 Assessment and Plan Assessment and plan (1) Chronic abdominal pain: Status: Chronic Assessment and plan: Ms. Perez is admitted for end of life care due to presumed peritonitis (possibily due to possible rectal mass) for which she has declined to have further testing or evaluation done and also declines abx. She did seem to understand that if this is peritonitis, she will likely if this is not treated. This patient has a very complex medical and mental health history, as per my chart review today. On exam today, I am not convinced that this patient has peritonitis (+ bowel sounds, no percussion tenderness, able to tolerate small amounts of liquids). No temperature is being checked. If she does have peritonitis, then she would not be End of Life. This is a challenging situation with a complex patient. I am hoping that she declares herself clinically one way or another over the next 24 hours. Recommendations: -I discussed with patient is she would be willing to have further diagnostic testing (CBC, imaging) to help sort out whether or not she has peritonitis, but she declined at this time. -I do think following a temperature would be reasonable (if only to offer antibiotic for fever relif). -Continue to titrate hydromorphone as needed for comfort. -Although pt has versed allergy listed, she has been receiving IV lorazepam without ill effects. Recommend scheduling IV lorazepam and titrating as necessary. -Haloperidol also can be quite helpful for comfort. If patient is clearly end of life (no longer able to take PO, scant urine output), OK to give IV. -Since there is still uncertainty whether or not this patient has peritonitis and is at end of life, palliative sedation would not be appropriate until it was clear that patient was at end of life (and currently not needed , as there is room to adjust her pain pump to higher doses). -Health Care agent: Discussion with patient today with Ms. Yesenia Muhammad APRN hospitalist present. We discussed the need for a designated health care agent. Pt said that she planned to continue to make decisions until she . We explained that almost certainly she would not be awake and alert for the last few days of her life. She then agreed to consider further. She villanueva snot think that her would be a good person to make decisions for her He is old and confused. When we asked if there was a friend or neighbor that she trusted with making decisions for her, she said there was nobody. When we suggested that she elect her daughter Chinyere Sinclair, she was concerned that Chinyere lived too far away, in [place]. We explained that Chinyere could participate in decision making via phone. She then said that this would be OK with her. She seemed to have capacity to make this decisions (especially given her explanation of why her husbadn could not make decisions for her. HCA form completed using verbal consent with Ms. Muhammad and myself as witnesses. If this is not accepted, Chinyere could act as surrogate decision maker. See phone call under HPI with daughter Chinyere: -Daughter Chinyere is willing to be patient's Health Care Agent when patient can no longer make decisions for herself. NO MEMBER OF THE PALLIATIVE CARE TEAM WILL BE IN THE HOSPITAL OVER THE HOLIDAY WEEKEND. Dr. Aguillon is willing to discuss and offer guidance by phone if needed. PLease contact hospital refinery operator helper crude unit if you wish to speak with her about this patient. 16 to 30 minutes spent today on Advance Care Planning. Patient and family participated voluntarily. Advance care planning may include (not limited to) explanation and discussion of advance directives, choosing and appointing healthcare agents, alternatives to various ACP tools, discussion of (and if indicated, completion of) COLST form, discussion of patient's values and overall goals for treatment, palliative and disease directive care options, ways to avoid hospital readmission including hospice discussions, care preferences should the patient's several other adverse health events.See today's palliative care note for additional information. Case discussed today with hospitalist, case management, nursing, phone call with daughter as above in addition to extensive chart review. Also consultation with both Dr. Aguillon and nurse practitioner Ayesha Rehman. (2) Severely underweight adult: Status: Acute (3) Rectal abnormality: Status: Acute Subjective Subjective Interval history since last seen: Ms. Perez is an 78 yo woman from [facility] who had been followed by Martha Buchanan APRN of Palliative Care Team for chronic Pain. COmplex medical and mental health history. PLease refer to past notes for full history. Pt on and of f hospice for the past year. Reportedly has had Worsening abdominal pain over the past 5 weeks with worsening hgb (continues with quite high Plts over the past year). Abd CT late June showed diffuse thickening of distal rectum concerning for malignancy (not seen on previous Abd CT about 16 mos ago). Pt then presented to ED on 08/16 for increased pain with nausea and vomiting. WBC was elevated (new) and Hgb was dropping. Note that CEA subsequently resulted as 5 (only a smidgeon elevated) . She declined to undergo any further diagnostic testing, labs, imaging and desired only relief from her symptoms. She was admitted for pain management and dehydration. ABD CT form 07/19/24 mentioned circumferential thickening of the rectal wall ,suspicious for rectal mass with recommendation for endoscopy.Den had no interest in pursuing any further evaluation to clarify when seen by Dr. Braun for surgical consultation despite education regarding the possibility of diagnostic and palliative interventions . As per D/C summary: ....Mentioned that she would kill herself if pain was unbearable at home vs palliative care interventions and RX adjustment. She was cleared by [facility] as safe to be discharged home. Attempt to completed a COLST form was not successful. The patient will be discharged home with home health nursing to assist with medicine management and a FEDERAL AIR MARSHAL. Plan was initially to be discharged to SNF to which she was agreeable but later changed her mind, also demonstrated to PT and OT that she did not require their services during inpatient consultation. She was discharged to home with Fentanyl patches for pain control. Patient returned to the ED 4 days later complaining of of uncontrolled abdominal/groin pain. She was not having any vomiting. Ed staff felt that she had peritonitis and should be admitted for IV Abx and pain control She declined abx and only wanted to be admitted for End of Life care and pain control. She declined to have any blood work or further imaging. She was Seen by Martha Buchanan NP, who has been following her over the last year as an outpatient patient and knows her well. It was Martha Brownlee's impression that patient was end-of-life with peritonitis likely due to a rectal malignancy. Patient was refusing any antibiotics. After discussion with the patient, and and the patient agreed to admit to the hospital for end-of-life control of symptoms. Patient has been receiving hydromorphone via pump. She was fairly comfortable yesterday on hydromorphone pump at 2 mg/h. She was able to take small sips of liquids. Sometime in the last 16 hours, she was reporting increased discomfort and hydromorphone was increased to 4 mg/hr. She has received three 1 mg boluses today. Of note, she has been receiving PRN Lorazepam 1 mg IV (4 doses in the last 24 hours). She also received haldol 5 mg IM this afternoon when reporting increased discomfort. She has had small sips of liquids (less than 4 ounces today) without vomiting. She is receiving minimal amount of IV fluid with the hydromorphone (currently 2 ml and hour). She continues to complain of abdominal pain. She has a torres in: had about 300 cc urine output on manufacturing supervisor 2nd shift and 200 cc output dark yellow urine in bag form today. Her mucous membranes are dry (but she does have a scopolamine patch on) Palliative Care was called today with the understanding that Palliative Sedation was being requested. This turns out to have been a miscommunication. Additionally , the pt has not advanced directives nor HCA forms. The COLST on file is ffrom March 2023. Ms. Buchanan' note states that she declined to discuss an updated COLST which would reflect her desire for comfort measures only prior to discharging on August 20. As Ms. Buchanan will be out of town for the next week, I am seeing her today. 18:00 PC to Chinyere Sinclair, patient's daughter: -She had visited her mom August 10. -She hasn't been close with her Mom for most of her adult life. They reconnected just this past February and they met at that time. They talk on the phone about once a month. -She can be a lot to handle and can get quite manic. -They don't always get along. Sometimes Den doesn't want her to visit. Other times, they enjoy getting together. -Chinyere thought she was dying in January and then turned around. -Chinyere says that she has trouble eating on and off. -Loved to garden and be independent and now she cannot. -In Chinyere's opinion, patient's Danis (not her father) is old, has had a stroke, but is not as confused as Den. He can no longer take care of her, as he used to do. -Chinyere thinks that a neighbor and the mailman help out. Danis still drives and will drive to [employer] and flower buncher or picker microwavable food. -Chinyere definitely feels that patient had an eating disorder. She was an alcoholic in the past, but no longer. She also wonders about bipolar disorder: she was often bedridden from depression when Chinyere was young and Danis has reported that on occasion she has been up and active for 36 hours. -Does she think Danis would want to be involved in making decisions? She does not think so, but sounds like maybe he could listen on it, he loves her, but feels she is ready to and suffering a lot. -Daughter Chinyere is willing to be patient's Health Care Agent when patient can no longer make decisions for herself. Exam Narrative Exam Narrative: Thin elderly woman laying in bed. Sits up on her own. Eyes closed, but opens eyes to voice and is able to have simple conversation with me. When she sits up on her own, she feels more comfortable. She has very active, normal pitched bowel sounds. She has a moderately distended stomach and does not have obvious guarding when distracted, but complains of pain if asked if pushing on her abd hurts. NO percussion tenderness. Objective Last Vital Signs Temp 36.3 C L 08/24/24 18:09 Pulse 103 H 08/24/24 18:09 Resp 17 08/24/24 18:09 BP 173/85 H 08/24/24 18:09 Pulse Ox 99 08/24/24 18:09
--- NOTE | 2024-08-26 15:54 | CHAPLAIN ---
I've checked in with Den a few times today. She opened her eyes at one point then I said her name, but closed them again and fell asleep while I was talking with her. I'll continue to visit.
--- NOTE | 2024-08-26 17:10 | W.NUTRFU ---
Date of service: 08/26/24 Time of Service: 17:10 Nutrition Note NOTE: PT noted to be comfort measures only status with no current diet order in place. Will provide food and beverages requested by nursing as desired/needed. Comfort cart will be made available to visitors. No aggressive nutrition interventions planned at this time. Time Spent in Nutritional Counseling and Treatment: 0
[2024-08-27] MEDS: LORazepam 20 MG/10 ML VIAL IVP ×4 (03:20→21:47)
[2024-08-27] MEDS: Normal Saline Flush 10 ML SYR IVP ×3 (03:21→21:47)
[2024-08-27] MEDS: Haloperidol 5 MG/ML VIAL IM ×3 (07:31→18:15)
[2024-08-27] MEDS: Pantoprazole 40 MG VIAL IVP (07:32)
--- NOTE | 2024-08-27 09:26 | PGE_ITS ---
Date of Service Date of service: 08/27/24 Time of Service: 09:26 Assessment and Plan Assessment and plan (1) Comfort measures only status: Status: Acute Assessment and plan: ONgoing AQUATICS ASSISTANT DEPARTMENT HEAD orders as per protocol PMHx : 78-year-old female with advanced chronic illnesses including heart failure with mildly reduced EF, peripheral arterial disease, chronic pain syndrome, COPD, depression, and known rectal mass suspicious for malignancy for which she refused Dx investigation Ongoing intractable pain despite high-dose opioids (fentanyl patch 100 mcg/hr, oral oxycodone, hydromorphone, and morphine) and has expressed clear wishes for comfort-directed care only. CADD Hydromorphone now at 5 mg/hr can go up to 8 mg/hr- anticipate higher dosage d/t PMHx of narcotic use -currently with available bolus of 1 mg q 15 min prn. if 2 boluses given w/i 60 minutes - increase rate by 1 mg/hr -Call provider when using more than 2 boluses/h given - -Titrate up for increased pain air hunger or dyspnea Palliative sedation discussed with Dr. Aguillon and hydromorphone not near maximal dosing at this time - This has been historically manage by physicians at [facility] Ongoing comfort care orders -including pain medication dyspnea, anxiety, nausea, secretions, constipation, agitation. Valencia catheter. On 08/26/24: Discussion with patient regarding health proxy/ agent ( to make d ecisions and speak in your behalf if your were incapacitated) during visit with Dr. Valdes: Agreed to daughter Chinyere Sinclair to take this role. Plan confirmed with daughter as her mother's healthcare proxy/agent. (2) Peritonitis: Status: Acute Assessment and plan: Now AQUATICS ASSISTANT DEPARTMENT HEAD (3) Legal blindness: Status: Acute Assessment and plan: As above (4) Chronic abdominal pain: Status: Chronic Assessment and plan: As per point 1 (5) Severely underweight adult: Status: Acute Assessment and plan: AQUATICS ASSISTANT DEPARTMENT HEAD (6) Opioid dependence with current use: Status: Chronic Assessment and plan: As per point 1 (7) Palliative care patient: Status: Acute Assessment and plan: As above Discussed with Dr. Tang Subjective Subjective Patient reports: still having pain (seems worst on abd palpation), tolerating liquids well, voiding w/o difficulty, no bowel movement and afebrile; denies feels better, nausea, vomiting, shortness of breath or fever Exam Narrative Exam Narrative: No focal deficit, S1-S2 regular heart, clear lungs, abdomen round with is slightly distended, semi-firm with exquisite tenderness to light palpation Objective Last Vital Signs Temp 36.3 C L 08/24/24 18:09 Pulse 103 H 08/24/24 18:09 Resp 17 08/24/24 18:09 BP 173/85 H 08/24/24 18:09 Pulse Ox 99 08/24/24 18:09 Time Spent with Patient Time Spent with Patient: >50 minutes Time was spent: preparing to see the patient(eg.review tests), obtaining and/or reviewing separately otained hiistory, ordering medications,tests, procedures, referring, communicating with other health team primary care physician, indepentently interpreting results, counseling the patient and care coordination
--- NOTE | 2024-08-27 13:06 | CHAPLAIN ---
I've been visiting Den's room several times today. She has opened her eyes briefly, once, when I said her name and then fell back asleep. She appears to be comfortable and sleeping well.
[2024-08-27] MEDS: Scopolamine 1 MG/3 DAYS PATCH TD (18:14)
[2024-08-28] MEDS: Haloperidol 5 MG/ML VIAL IM ×2 (00:51→06:21)
[2024-08-28] MEDS: LORazepam 20 MG/10 ML VIAL IVP ×2 (03:46→09:32)
[2024-08-28] MEDS: Normal Saline Flush 10 ML SYR IVP (03:49)
[2024-08-28] MEDS: Pantoprazole 40 MG VIAL IVP (09:31)
[2024-08-28] MEDS: OLANZapine 2.5 MG TAB PO (11:14)
--- NOTE | 2024-08-28 11:31 | PGE_ITS ---
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 Tang Subjective Subjective Interval history since last seen: resting comfortably. Exam Narrative Exam Narrative: Cachectic female of stated age resting quietly on her bed eyes closed respirations even and unlabored skin is ashen warm dry no peripheral edema Objective Last Vital Signs Temp 36.3 C L 08/24/24 18:09 Pulse 103 H 08/24/24 18:09 Resp 17 08/24/24 18:09 BP 173/85 H 08/24/24 18:09 Pulse Ox 99 08/24/24 18:09 Time Spent with Patient Time Spent with Patient: 35-49 minutes Time was spent: preparing to see the patient(eg.review tests), ordering medications,tests, procedures, referring, communicating with other health healthcare translator (Pharmacy) and indepentently interpreting results
--- NOTE | 2024-08-28 15:41 | NUR.NOTE ---
Addendum entered by Lissy Merida RN 08/28/24 16:34: Pt had 100 mcg fentanyl patch ordered on home med list. Original Note: Nursing Note: Christina-care provided for incontinence of stool, one fentanyl patch noted on lower right quadrant. Patch was undated and not initialed, no order for patch in place. Patch removed and disposed, disposal witnessed by Joann Munoz.
[2024-08-28] MEDS: LORazepam 2 MG/1 ML Oral Concentrate 1 MG PO (22:58)
[2024-08-29] MEDS: LORazepam 2 MG/1 ML Oral Concentrate 1 MG PO ×4 (05:24→23:51)
[2024-08-29] MEDS: OLANZapine 2.5 MG TAB PO (09:10)
--- NOTE | 2024-08-29 11:36 | PHACLINREV_ITS ---
Pharmacy Admission Review Admission Clinical Review Admission Pharmacy Review: Rectal abnormality (Acute) Peritonitis (Acute) Legal blindness (Acute) Severely underweight adult (Acute) Comfort measures only status (Acute) Protein calorie malnutrition (Acute) Dyspnea on exertion (Acute) Palliative care patient (Acute) Sulfa (Sulfonamide Antibiotics) Allergy (Severe, Verified 08/24/24 13:32) Anaphylaxsis meperidine HCl (From Demerol) Allergy (Intermediate, Verified 08/24/24 13:32) Contraindicated, seizures phenytoin sodium (From Dilantin) Allergy (Intermediate, Verified 08/24/24 13:32) Contraindicated, seizures phenytoin sodium extended (From Dilantin) Allergy (Intermediate, Verified 08/24/24 13:32) Contraindicated, seizures amoxicillin Allergy (Unknown, Verified 08/24/24 13:32) unknown diazepam (From Valium) Allergy (Unknown, Verified 08/24/24 13:32) unknown morphine Allergy (Verified 08/24/24 13:32) Other (See Comment) midazolam HCl (From Versed) Adverse Reaction (Intermediate, Verified 08/24/24 13:32) Psychosis oxycodone Adverse Reaction (Intermediate, Uncoded 08/24/24 13:32) weird and anxious feeling Resuscitation Status DNR/DNI Height 5 ft 4 in Weight 34.019 kg Comments Comments/Follow Ups: ACCOUNT MANAGER EMPLOYEE BENEFITS Pharmacy Admission Review Renal Dosing Medications needing adjustments: Reviewed (CrCl 24.1 mL/min) Anticoagulation DVT Prophylaxis: N/A Opiate Usage Evaluate Pain Scale/Pains Meds: Reviewed (hydromorphone CADD @ 6mg/hr and fentanyl 100mcg patch added this afternoon) Scheduled Bowel Reg ordered if on Opiates?: Yes Relevant Labs Electrolytes, C-Reactive P, ESR: Reviewed (ACCOUNT MANAGER EMPLOYEE BENEFITS - no labs) Cardiac Review BP, HR, EF%: Reviewed (ACCOUNT MANAGER EMPLOYEE BENEFITS - no VS recorded) QTc Review QTc: Reviewed (511 from 12/23/23 - most recent EKG on file) IV to PO Switch IV Medications: Reviewed Home Meds Home Med List reviewed: Reviewed Current Meds Current Medication Order Review: Reviewed Comments: hydromorphone CADD currently running at 6mg/hr Comments Comments/Follow Ups: ACCOUNT MANAGER EMPLOYEE BENEFITS
--- NOTE | 2024-08-29 11:43 | PGE_ITS ---
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 Tang Subjective Subjective Interval history since last seen: . Some restlessness and pain with titration of her Dilaudid drip. Her fentanyl patch was removed yesterday. No symptoms of distress. Not taking oral intake Exam Narrative Exam Narrative: Cachectic female of stated age resting quietly on her bed eyes closed respirations even and unlabored skin is ashen warm dry no peripheral edema Valencia draining concentrated urine Objective Last Vital Signs Temp 36.3 C L 08/24/24 18:09 Pulse 103 H 08/24/24 18:09 Resp 17 08/24/24 18:09 BP 173/85 H 08/24/24 18:09 Pulse Ox 99 08/24/24 18:09 Time Spent with Patient Time Spent with Patient: 25-34 minutes Time was spent: preparing to see the patient(eg.review tests), ordering medications,tests, procedures and referring, communicating with other health spiritual care coordinator
[2024-08-29] MEDS: fentaNYL 100 MCG PATCH TD (11:46)
--- NOTE | 2024-08-29 20:12 | PCPN_ITS ---
Date of service: 08/29/24 Time of Service: 14:00 Assessment and Plan Assessment and plan (1) Comfort measures only status: Status: Acute Assessment and plan: I am glad that they have discontinued the vitals. I do not think that they are necessary given the circumstances I have reviewed her chart and she has repeatedly stated that she would like to , and to comfortably. Optimizing her medications is a great thing for her. I am not so certain that the fentanyl patch is even helpful considering her lack of any type of subcutaneous fat. I do not see a problem with continuing it but I do not think it is very helpful. She is receiving Ativan. Presently she does not need any at this moment but I understand that at night she is quite active and agitated. I do think that Haldol would be an excellent choice. She does have IV access today provide perhaps though not tomorrow. I would do 2 mg IV every 2 hours for agitation as needed. If she loses IV access they could be done p.o. 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 She has increased from 1 to 2 mg/h and is now in the 6-8 range. Nursing recently found an fentanyl patch on her. They have replaced this. They are hoping for better pain control. Nighttimes continue to be active, she sleeps most of the day Patient was sleeping when I walked in. I did talk to her and she did not open her eyes or react. Exam Narrative Exam Narrative: Patient is breathing comfortably. Her heart is in the 90s. Abdomen nontender. Objective Last Vital Signs Temp 97.3 F L 08/24/24 18:09 Pulse 103 H 08/24/24 18:09 Resp 17 08/24/24 18:09 BP 173/85 H 08/24/24 18:09 Pulse Ox 99 08/24/24 18:09
[2024-08-30] MEDS: LORazepam 2 MG/1 ML Oral Concentrate 1 MG PO (06:57)
--- NOTE | 2024-08-30 08:09 | W.PALPGNOTE ---
Date of service: 08/30/24 Time of Service: 08:09 Assessment and Plan Assessment and plan (1) Comfort measures only status: Status: Acute Assessment and plan: Den is clearly uncomfortable. Her fentanyl patch was replaced yesterday. She continues on 8 mg/h of the Dilaudid and does have a cat in place. Overnight she had 2 bowel movements. She definitely needs to be bolused at this time and probably to go up on her Dilaudid. I would emphasize the goal of going up on her Dilaudid is the optimum as I doubt that a fentanyl patch is effective due to her lack of subcutaneous fat. She absolutely has no fat. I also recommend since she is agitated mostly at night that her medications be optimized starting around 3 or 4 in the afternoon. Probably an increase in her pump both hourly and bolus is appropriate. Again she stated to me that she wants to be kept comfortable and she wants to . I would also switch the lorazepam to 1 mg 3 times daily scheduled and if IV placement is available by IV. If not then give orally. I do think she also requires lorazepam 1 mg every hour as needed in addition to the scheduled dose. I am available and do plan to see patient tomorrow if still appropriate. Subjective Subjective Interval history since last seen: Nursing noted that patient was moaning much of the night. She was also very very agitated. When I went in to see her she was sideways in the bed sitting up moaning. I asked her about her pain. She said she was in pain. I asked her about getting more comfortable with a change or increase in medication and she shook her head yes. Nursing was in the room at the time. Staff notes that she is nocturnal and that much of her agitation is at night and she sleeps during the day Exam Narrative Exam Narrative: Patient is rocking in her bed. Her eyes are closed but she opens them when I talk with her. She is sideways in her bed with 1 foot over the edge. She is tachycardic. She is breathing fairly normal. She is cachectic Objective Last Vital Signs Temp 97.3 F L 08/24/24 18:09 Pulse 103 H 08/24/24 18:09 Resp 17 08/24/24 18:09 BP 173/85 H 08/24/24 18:09 Pulse Ox 99 08/24/24 18:09
--- NOTE | 2024-08-30 08:50 | PDOC.CMPRO ---
Date of service: 08/30/24 Time of Service: 13:55 Care Management Progress Note Progress Note Text Progress Note Text: Patient was sitting straight up at the edge of her bed but is unresponsive, when CM arrived. CM did talk to her and she did not open her eyes or react. Den has been seen by the and Dying Account Technician, and is followed by palliative care. She appeared to be comfortable and was not restless, at this time. Discharge Plan: Palliative following goals of care. 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 CM will follow. Social Determinants of Health Screening Will the Patient Participate in the Screening?: Declined to provide
--- NOTE | 2024-08-30 09:12 | PGE_ITS ---
Date of Service Date of service: 08/30/24 Time of Service: 09:12 Assessment and Plan Assessment and plan (1) Comfort measures only status: Status: Acute Assessment and plan: Ongoing DIRECTOR SUPPLIER QUALITY and plan to remain here for end-of-life care Ongoing hydromorphone CADD pump via SC route- no IV access -Will adjust doses as needed today base on degree of comfort - goal no abdominal pain -Recommendations from Palliative care implemented - and Discussion with Dr. Aguillon re: palliative care sedation prospect in failure to achieve goal for 08/31/24 initiated Ativan SC/IV PRN and scheduled Ongoing fentanyl 100 mcg patch Continue to adjust medications as needed In the event of palliative sedation - one provider to contact health care agent (2) Palliative care patient: Status: Acute Assessment and plan: As above Discussed with Dr. Tang Subjective Subjective Patient reports: still having pain, bowel movement, afebrile and other (Appears distress, Coronel-Mujica pain scale 6 to 8, non-verbal but easily agitated, torres with minimal output , no enteral intake ) Exam Narrative Exam Narrative: No neurological focal deficit, S1-S2 regular heart, decreased breath bibasilar breath sounds, abdomen round , tender with minimal tactile stimuli and soft Objective Last Vital Signs Temp 36.3 C L 08/24/24 18:09 Pulse 103 H 08/24/24 18:09 Resp 17 08/24/24 18:09 BP 173/85 H 08/24/24 18:09 Pulse Ox 99 08/24/24 18:09 Time Spent with Patient Time Spent with Patient: >50 minutes Time was spent: preparing to see the patient(eg.review tests), obtaining and/or reviewing separately otained hiistory, ordering medications,tests, procedures, referring, communicating with other health customer care specialist, indepentently interpreting results, counseling the patient and care coordination
[2024-08-30] MEDS: LORazepam 20 MG/10 ML VIAL IV/SC ×5 (11:07→22:42)
[2024-08-30] MEDS: Scopolamine 1 MG/3 DAYS PATCH TD (18:19)
[2024-08-30] MEDS: Normal Saline Flush 10 ML SYR IVP ×2 (20:04→22:43)
[2024-08-30] MEDS: Bisacodyl 10 MG SUPP PR (23:40)
[2024-08-31] MEDS: LORazepam 20 MG/10 ML VIAL IV/SC ×4 (01:05→15:05)
[2024-08-31] MEDS: Normal Saline Flush 10 ML SYR IVP ×3 (01:06→21:05)
--- NOTE | 2024-08-31 07:23 | W.PALPGNOTE ---
Date of service: 08/31/24 Time of Service: 07:23 Assessment and Plan Assessment and plan (1) Comfort measures only status: Status: Acute Assessment and plan: Overall the nursing is done a great job keeping patient comfortable. She was not agitated overnight which is a huge improvement. Present regime seems to be working well. She is presently on 17 mg/h. She needed 7 boluses overnight. They also feel that the at scheduled Ativan and as needed Ativan are working well. I would not change those things Constipation given the load of narcotic that she is on I am not surprised. I would recommend using relistor which improves opioid use constipation. It may take 1 to 2 injections. Hopefully she will not need manual disimpaction Overall this is the most comfortable that I am seeing her. I have relayed information to nursing and the hospitalist staff. Will continue to follow. Please stop all p.o. medication as she is no longer awake enough to swallow Subjective Subjective Interval history since last seen: Den is lying in bed. She is having apneic breathing. She appears comfortable. Nursing states that she has been very constipated. They were able to get some of the stool out but there is still quite a bit. This is the first time that she has been able to sleep all night. In the past she has been very very agitated at night. Exam Narrative Exam Narrative: Apneic breathing. Appears comfortable. Heart was regular. Abdomen very few bowel sounds. Did not respond to palpation. By palpation she has stool in her bowels. Objective Last Vital Signs Temp 97.3 F L 08/24/24 18:09 Pulse 103 H 08/24/24 18:09 Resp 17 08/24/24 18:09 BP 173/85 H 08/24/24 18:09 Pulse Ox 99 08/24/24 18:09
--- NOTE | 2024-08-31 09:04 | W.PM.PROGNOT ---
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 Aguillon re: palliative care sedation prospect in failure to achieve goal -Mildline placed in the event where current pain management under PRINCIPAL JAVA DEVELOPER protocol fsile Ativan IV PRN and scheduled On fentanyl 100 mcg patch Q 72 H Continue to adjust medications as needed In the event of palliative sedation - one provider to contact health care agent (2) Palliative care patient: Status: Acute Assessment and plan: As above - Seen by Dr. Aguillon today - please read notes Discussed with Dr. Vera Subjective Subjective Patient reports: still having pain, bowel movement, afebrile and other (Appears distress, Coronel-Mujica pain scale 6 to 8, non-verbal but easily agitated, torres with minimal output , no enteral intake ) Exam Narrative Exam Narrative: No neurological focal deficit, S1-S2 regular heart, labored breathing at times with agitation, decreased breath sounds, abdomen round ,ongoing tenderness with minimal tactile stimuli, increased leg movement d/t discomfort at times Objective Last Vital Signs Temp 36.3 C L 08/24/24 18:09 Pulse 103 H 08/24/24 18:09 Resp 17 08/24/24 18:09 BP 173/85 H 08/24/24 18:09 Pulse Ox 99 08/24/24 18:09 Time Spent with Patient Time Spent with Patient: >50 minutes Time was spent: preparing to see the patient(eg.review tests), obtaining and/or reviewing separately otained hiistory, ordering medications,tests, procedures, referring, communicating with other health primary care sales representative, indepentently interpreting results, counseling the patient and care coordination
--- NOTE | 2024-08-31 12:26 | CMPROGNOTE_ITS ---
Date of service: 08/31/24 Time of Service: 12:33 Care Management Progress Note Progress Note Text Progress Note Text: Den was lying in bed and appeared to be resting comfortably; She did not appear to be agitated or restless, when CM arrived. She remains on EQUIPMENT SERVICES ASSOCIATE with a drip of Hydromorphone which has increased from yesterday's (08/30/24) initial dose of 7 mg/hr to today's current dose of 19 mg/hr. Den is being followed by palliative. CM contacted Chinyere ([facility]) to initiate the discussion of final arrangements. Per Chinyere, Danis and Den wish to be buried on their property in [place]. Per Danis, he is actively attempting to obtain the necessary permits from the town, with the assistance of his neighbor. CM will follow. Discharge Plan: Palliative following goals of care. 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 CM will follow. Social Determinants of Health Screening Will the Patient Participate in the Screening?: Declined to provide
[2024-08-31] MEDS: Methylnaltrexone 12 MG/0.6 ML VIAL 6 MG SC (15:38)
[2024-08-31] MEDS: LORazepam 20 MG/10 ML VIAL IV (21:04)
[2024-09-01] MEDS: LORazepam 20 MG/10 ML VIAL IV ×5 (02:52→21:37)
--- NOTE | 2024-09-01 07:54 | W.PALPGNOTE ---
Date of service: 09/01/24 Time of Service: 07:55 Assessment and Plan Assessment and plan (1) Comfort measures only status: Status: Acute Assessment and plan: Unfortunately we have not been able to make the patient comfortable regardless of the amount of Dilaudid and benzos we have been using. I am concerned that the high doses of the Dilaudid is contributing to her agitation. At this time we need to move onto palliative sedation. This had been discussed with the patient last Friday. I called her daughter Chinyere Sinclair who agreed to palliative sedation. We got verbal consent with 2 nurses by phone. I have discussed this with the hospital staff. Also discussed with pharmacy I also spoke with pharmacy. We will start her on a propofol drip. I am going to do a loading dose of 20 mg and start a drip of 20mg/hr. Inrease every 15 min until no longer agitated. Once she is not requiring boluses of dilaudid or ativan for 1 hour, start to decrease the dilaudid drip by 1 mg / hr until she is at 10mg/hr...Continue the scheduled ativan. I will check in with hospitalist staff for further instructions after noon today. Subjective Subjective Interval history since last seen: I am seeing patient this morning for palliative care. Nursing is quite upset because they feel that she is very agitated despite going up on the Dilaudid and administering Ativan. They do not feel she is comfortable they are asking for more help. Exam Narrative Exam Narrative: Patient is lying in bed. She is slightly arousable. She does not look agitated at this point but per nursing she was agitated most of yesterday. Objective Last Vital Signs Temp 97.3 F L 08/24/24 18:09 Pulse 103 H 08/24/24 18:09 Resp 17 08/24/24 18:09 BP 173/85 H 08/24/24 18:09 Pulse Ox 99 08/24/24 18:09
[2024-09-01] MEDS: Normal Saline Flush 10 ML SYR IVP ×2 (09:21→21:36)
--- NOTE | 2024-09-01 10:20 | PDOC.CMPRO ---
Date of service: 09/01/24 Time of Service: 10:20 Care Management Progress Note Progress Note Text Progress Note Text: Den was lying in bed, and appeared to be comfortable, when CM arrived. She is being started on propofol 2mls/hr, with hydromorphone still running at 22 mg/hr. Per Chinyere, she and Den's neighbor are supporting Danis throughout the process of obtaining the correct permits for Den's home burial. CM will continue to follow and support Den, and her family through this difficult time. Discharge Plan: Palliative following goals of care. 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 CM will follow Social Determinants of Health Screening Will the Patient Participate in the Screening?: Declined to provide
[2024-09-01] MEDS: PROPOFOL 1,000 MG/100 ML BTL 2 MG IV_INF (10:48)
[2024-09-01] MEDS: fentaNYL 100 MCG PATCH TD (13:17)
--- NOTE | 2024-09-01 14:41 | PGE_ITS ---
Date of Service Date of service: 09/01/24 Time of Service: 19:42 Assessment and Plan Assessment and plan (1) Comfort measures only status: Status: Acute Assessment and plan: She remains hospitalized for end-of-life care Propofol drip started today Tapering off dilaudid drip Continue Relistor Midline in place Continue additional comfort care Exam Narrative Exam Narrative: General: This is a tired-appearing woman in no acute distress, on comfort care Objective Last Vital Signs Temp 36.3 C L 08/24/24 18:09 Pulse 103 H 08/24/24 18:09 Resp 17 08/24/24 18:09 BP 173/85 H 08/24/24 18:09 Pulse Ox 99 08/24/24 18:09 Time Spent with Patient Time Spent with Patient: 25-34 minutes Time was spent: preparing to see the patient(eg.review tests), obtaining and/or reviewing separately otained hiistory, ordering medications,tests, procedures, referring, communicating with other health rental boats caretaker, indepentently interpreting results, counseling the patient and care coordination
--- NOTE | 2024-09-02 07:25 | W.PALPGNOTE ---
Date of service: 09/02/24 Time of Service: : Assessment and Plan Assessment and plan (1) Comfort measures only status: Status: Acute Assessment and plan: Patient is now on palliative sedation and is working well. She still has moaning when she turns for care. I recommend that she gets a bolus a few minutes before she needs to have care. She continues to make urine. Discussed with nursing the strategy of going up on the propofol and down on the Dilaudid drip. I do feel that the Dilaudid over saturated her receptors and added to her agitation. Subjective Subjective Interval history since last seen: Den has been considerably more comfortable since she was placed on palliative sedation with propofol. She is now on 40 mg/h. They have been able to decrease her Dilaudid to 17 mg/h. She still moans when she has to be moved for care. She really likes her left side. Exam Narrative Exam Narrative: Patient is lying on her left side. She appears comfortable. She is breathing normally, with her mouth open Objective Last Vital Signs Temp 97.3 F L 08/24/24 18:09 Pulse 103 H 08/24/24 18:09 Resp 17 08/24/24 18:09 BP 173/85 H 08/24/24 18:09 Pulse Ox 99 08/24/24 18:09
--- NOTE | 2024-09-02 08:22 | CMPROGNOTE_ITS ---
Date of service: 09/02/24 Time of Service: 08:22 Care Management Progress Note Progress Note Text Progress Note Text: Den was lying in bed and her legs seemed to be twitching, when CM arrived. She continues to be on palliative sedation. Palliative provider saw her this morning. She is alone in her room, with staff doing frequent checks. CM talked to Den about Danis's plan to take her home, Den had her eyes closed and did not respond. Per Danis, he and his neighbor have contacted the Health officer for the [facility](Doctor Ray Javier from [facility]). CM contacted [facility] Clerk who provided the following information. Dr. Whipple will inspect the property, prior to issuing the burial permit. If the inspection is the approved, transport permits can be filed through the [employer], if Den is not working with a home directly. Danis is not working with a home directly, at this time. Then the select board will need to be notified by patient family for the [facility]'s land records. CM provided [facility] information to Danis, he will contact them directly. Danis is agreeable to Den going to a home until the Health Officer inspects the property. CM will follow. Discharge Plan: Palliative following goals of care. Anticipate, continued LINE DECORATOR and remain at [facility] for end-of-life. CM will follow Social Determinants of Health Screening Will the Patient Participate in the Screening?: Declined to provide
[2024-09-02] MEDS: LORazepam 20 MG/10 ML VIAL IV ×3 (09:06→19:46)
[2024-09-02] MEDS: Normal Saline Flush 10 ML SYR IVP ×3 (09:07→19:48)
[2024-09-02] MEDS: PROPOFOL 1,000 MG/100 ML BTL 5 MG IV_INF (13:30)
--- NOTE | 2024-09-02 14:27 | CHAPLAIN ---
Been checking in on Tamsen yesterday and today. She is on Comfort Measures and is not responsive. She appears to be comfortable. Her daughter called yesterday and the ADVERTISING SPACE CLERK held the phone to Den hurst so her daughter could speak with her.
--- NOTE | 2024-09-02 16:41 | W.PM.PROGNOT ---
Date of Service Date of service: 09/02/24 Time of Service: 08:00 Assessment and Plan Assessment and plan (1) Comfort measures only status: Status: Acute Assessment and plan: She remains hospitalized for end-of-life care Continue propofol drip Tapering off dilaudid drip as tolerated Continue Relistor Midline in place Continue additional comfort care Exam Narrative Exam Narrative: General: This is a tired-appearing woman in no acute distress, on comfort care Objective Last Vital Signs Temp 36.3 C L 08/24/24 18:09 Pulse 103 H 08/24/24 18:09 Resp 17 08/24/24 18:09 BP 173/85 H 08/24/24 18:09 Pulse Ox 99 08/24/24 18:09 Time Spent with Patient Time Spent with Patient: 25-34 minutes Time was spent: preparing to see the patient(eg.review tests), obtaining and/or reviewing separately otained hiistory, ordering medications,tests, procedures, referring, communicating with other health ocular care technician, indepentently interpreting results, counseling the patient and care coordination
[2024-09-02] MEDS: Scopolamine 1 MG/3 DAYS PATCH TD (19:47)
--- NOTE | 2024-09-02 21:10 | W.PM.DDS ---
Date of service: 09/02/24 Time of Service: 21:10 Discharge Plan Disposition Patient Disposition: Discharge Details Reason For Visit: Peritonitis; opioid dependence; End of Life care Admit Date/Time: 08/24/24 15:52 Admit Provider: Chapincito Hernandez Attending Provider: Chapincito Hernandez Primary Care Provider: Carla Park [facility] Hospital Course Hospital Course: Patient admitted from home under comfort measures only for intractable pain. She had a rectal mass that was highly suspicious for malignancy as well as other chronic medical conditions including HFrEF chronic opiate use. She was ultimately placed on palliative propofol as well as CADD pump. Ultimately, patient to succumbed to her illness and had a time of of 2050 on 09/02/2024. Discharge Data Cause of : Cardiac arrest Discharge Sum: Prov Provider Consults: 08/24/24 18:25 Palliative Care Consult [CONS] Routine Consultation Status:: Contact made by Clarification:: Manage/follow per spec. Reason for consult:: Palliative care patient - previously established - here DAY CARE WORKER 08/30/24 16:02 PICC [PICC/Midline Consult] [CONS] Routine Comment: Consultation Status:: Follow-up needed Clarification:: Manage/follow per spec. Reason for consult:: Midline insertion- DAY CARE WORKER progressing toward palliative sedation Type of Line to be Placed: Midline Discharge Sum: Diag PCOD Cause of : Cardiac arrest Contributing Factors (1) Comfort measures only status:
== END 2024-09-02 22:30 | disposition expired | DRG 372 ==
LOC: ER 15:50 → MS 16:44
PROVIDERS: Admitting Provider Family Medicine; Emergency Provider Emergency Medicine; PCP Nurse Practitioner; Responsible Provider Family Medicine; Visit Provider Family Medicine
DX: K65.9 Peritonitis, unspecified (principal); Z51.5 Encounter for palliative care; H54.8 Legal blindness, as defined in USA; G89.29 Other chronic pain; R10.9 Unspecified abdominal pain; Z68.1 Body mass index [BMI] 19.9 or less, adult; E46 Unspecified protein-calorie malnutrition; K21.9 Gastro-esophageal reflux disease without esophagitis; C20 Malignant neoplasm of rectum; F11.20 Opioid dependence, uncomplicated; G40.109 Localization-related (focal) (partial) symptomatic epilepsy and epileptic syndromes with simple partial seizures, not intractable, without status epilepticus; I50.22 Chronic systolic (congestive) heart failure; Z79.899 Other long term (current) drug therapy; F32.A Depression, unspecified; D64.9 Anemia, unspecified; L30.1 Dyshidrosis [pompholyx]; K59.00 Constipation, unspecified; I25.2 Old myocardial infarction; I73.9 Peripheral vascular disease, unspecified; J44.9 Chronic obstructive pulmonary disease, unspecified; E55.9 Vitamin D deficiency, unspecified; F43.10 Post-traumatic stress disorder, unspecified; Z66 Do not resuscitate; R00.0 Tachycardia, unspecified
CPT/HCPCS: 36410; 00123; 51702; 96374; 96376; 99285; 99222; 99232; 99233; J1171; J1630; J2060; J2212; J2270; J2470; J2704; J3490